=== PATIENT | male | born 1950 | race Caucasian/White ===

== ENCOUNTER 2021-09-08 16:34 | Inpatient (IN) ==
[2021-09-08] MEDS ORDERED: SODIUM CHLORIDE 0.9% 1000ML 1,000 ML IV SCH (17:00)
--- NOTE | 2021-09-08 17:03 | Emergency Department Note ---
Impression & Plan Gastric outlet obstruction, Syncope and collapse, Nausea & vomiting, Abdominal pain, acute, epigastric, Acute upper GI bleed ED Provider Note INFORMANT: Patient ED PROVIDER(S): Jose Patterson MD CHIEF COMPLAINT: Syncope PLAN: Disposition: Admitted Condition: Good Outpatient prescription management: none Referral: None MEDICAL DECISION MAKING: Patient presented after syncopal episode. He was tender in the epigastrium. His vital signs and ECG were unremarkable. Patient was hydrated. Head CT was unremarkable. His CT scan of his abdomen pelvis was concerning for possible gastric outlet obstruction and possible upper GI bleed. Patient had a significant leukocytosis on CBC and anemia. the patient was reassessed. He had another syncopal episode while trying to use the bathroom. A CODE BLUE was called. I did attend to the patient as well as other staff.. That this was a nother isolated syncopal episode that I suspect is from his GI source. Patient's troponin was noted to be positive. Patient had a repeat ECG was unremarkable. Repeat H&H was performed and revealed no significant change. Patient was given IV Zofran, IV Pepcid, and Protonix bolus and drip. I did consult with gastroenterology, Dr. Dey. We reviewed the findings and he reviewed the imaging itself. He agreed with the treatment. Patient was also given a dose of IV Mefoxin. He asked to be notified if there was any swapna blood from the NG tube. Only coffee-ground material was noted. I did inform him of the results. He notes patient will need an endoscopy tomorrow. And family were updated. On reassessment patient was feeling better and declined analgesia. It appears patient has an upper GI bleed. Possibly a duodenal ulcer or other issue causing this issue. Only hemoglobin on record is from 6 years ago and he has dropped 3 points. He will need to be monitored closely. A consu ltation was placed with Dr. Jose Evans, [facility]. He evaluated the patient in the ER and admitted him for further management. Triage Nursing notes reviewed and agree them. Vital Signs: reviewed and remarkable for no significant abnormalities Differential diagnosis: Infection, dehydration, metabolic abnormality, hypo/hyperglycemia, electrolyte disturbance, anemia, hypoxia, cardiac sources, intracerebral event, toxicologic, neurologic, as well as other pathologies. Diagnostics interpreted by me: EC Lead ECG performed and revealed Normal sinus rhythm at 76, normal [place], QRS normal. No elevation or depression. No PACs or PVCs Cardiac Monitoring: Cardiac monitoring ordered by me: The patient was placed on continuous cardiac monitoring and observed. It revealed a normal sinus rhythm at 98 beats per minute without ectopy or evidence of dysrhythmia. Imaging studies: Head CT was negative. CT scan of the abdomen pelvis as above. I refer you to the EMR for further details. HPI: The patient is a 71 year old male who presents to the Emergency Room with complaints of syncope. This started today and is occurred twice. One episode at home and he was found by family. Second episode the patient was witnessed when transferring to the stretcher by EMS. The patient also notes the following associated symptoms, epigastric abdominal pain, nausea, vomiting, diarrhea which started last night. The patient has been given 350 mL normal saline by EMS for relieving factors. Current pain is rated as 5/10. Patient denies suffering any injury from the fall. pt denies headache, fevers, chills, diaphoresis, visual changes, neck pain, chest pain, breathing difficulties, back pain, melena, hematochezia, urinary symptoms, numbness, weakness, lymphadenopathy, rash, or other complaints. ROS: See above HPI for pertinent positives & negatives. A total of 10 systems reviewed and were otherwise negative. PAST MEDICAL HISTORY:See Below , CVA PAST SURGICAL HISTORY:See Below, FAMILY HISTORY:See Below SOCIAL HISTORY:See Below, lives at home with family HOME MEDICATIONS:See Below ALLERGIES:See Below VITALS:See Below PHYSICAL EXAMINATION: GENERAL: Awake, alert, tired-appearing, in no distress HENT: Normocephalic, atraumatic. Oropharynx unremarkable. EYES: Pale conjunctiva. Sclera non-icteric. NECK: Inspection normal. Non-tender. Supple. No nuchal rigidity. FROM. No masses. RESPIRATORY: Clear to auscultation. No wheezes. No rales. Normal respiratory effort. CARDIAC: Borderline tachycardic rate. Normal rhythm. No murmurs. No rubs. Extremities warm and well perfused. Pulses equal. No JVD. GI: Soft, non-distended. Epigastric tenderness to palpation. No rebound or guarding. No masses. RECTAL: Deferred. MUSCULOSKELETAL: Atraumatic. Chest examination reveals no tenderness. The back is symmetrical on inspection without obvious abnormality. There is no CVA tenderness to palpation. No joint edema. LOWER EXTREMITIES: Calves are equal size bilaterally and non-tender. No edema. No discoloration. NEURO: Normal sensorium. No sensory deficits noted. Generally weak in the arms and legs but no focal deficit. SKIN: No rash or jaundice noted. Critical CARE: I have personally spent greater than 40 minutes of critical care time in the direct management of this patient. This includes bedside care, interpretation of diagnostic studies, and testing, discussion with consultants, patient, and family members, and other required patient management activities. These minutes are in excess of all separately billable procedures. Jose Patterson MD Past Med/Surg History Social History (System 12/16/19 @ 08:00 by Luz Ernadnez) Smoking Status: Former smoker Preferred Language: Kyrgyz Feels Safe at Home: Yes Allergies Allergies Allergy/AdvReac Type Severity Reaction Status Date / Time tetracycline Allergy Mild RASH Verified 12/16/19 08:00 Home Meds Home Medications Medication Instructions Recorded Confirmed albuterol sulfate 90 mcg/actuation 2 puff INHALATION Q4 PRN 09/08/21 09/08/21 aerosol inhaler amitriptyline 10 mg tablet 10 mg PO HS 09/08/21 09/08/21 aspirin 325 mg tablet 325 mg PO DAILY 09/08/21 09/08/21 atorvastatin 40 mg tablet 40 mg PO DAILY 09/08/21 09/08/21 bupropion HCl 150 mg 24 hr tablet, 150 mg PO DAILY 09/08/21 09/08/21 extended release calcium carbonate 500 mg calcium 500 mg PO TID 09/08/21 09/08/21 (1,250 mg) chewable tablet clopidogrel 75 mg tablet 75 mg PO QAM 09/08/21 09/08/21 fluoxetine 20 mg capsule 20 mg PO DAILY 09/08/21 09/08/21 fluoxetine 40 mg capsule 40 mg PO DAILY 09/08/21 09/08/21 lorazepam 1 mg tablet 1 mg PO HS PRN 09/08/21 09/08/21 meloxicam 15 mg tablet 15 mg PO DAILY 09/08/21 09/08/21 metformin 500 mg tablet 500 mg PO BID 09/08/21 09/08/21 [id number] acid 0.4 1 tab PO DAILY 09/08/21 09/08/21 mg-lycopene 300 mcg-lutein 250 mcg tablet (Centrum Silver) pantoprazole 40 mg tablet,delayed 40 mg PO DAILYBB 09/08/21 09/08/21 release propranolol 160 mg capsule,24 160 mg PO DAILY 09/08/21 09/08/21 hr,extended release rizatriptan 10 mg tablet 10 mg PO UD PRN 09/08/21 09/08/21 tramadol 50 mg tablet 50 mg PO Q6 PRN 09/08/21 09/08/21 Results & Data (ED) Vital Signs Vital Signs - 24 hr 09/08/21 16:30 09/08/21 16:49 09/08/21 19:00 Temperature 36.4 C L 36.8 C Temperature Source Oral Oral Pulse Rate 74 78 Pulse Rate [Apical] 73 90 Pulse Rhythm [Apical] Regular Pulse Strength [Apical] Normal Respiratory Rate 19 16 18 Respiratory Effort / Characteristics Non-Labored Spontaneous Respiratory Depth Normal Respiratory Pattern Regular Blood Pressure 151/90 H Blood Pressure [Left Arm] 151/90 H 184/93 H Blood Pressure Mean 110 Blood Pressure Mean [Left Arm] 110 123 Blood Pressure Position [Left Arm] Lying Pulse Oximetry 99 100 98 Oxygen Delivery Method Room Air Room Air Sepsis Recent Fever Within 48 Hours No Sepsis New/Unexplained Change in Mental Status N/A Sepsis Action Taken by Nursing No Action Required Laboratory Data Result diagrams: 09/08/21 17:52 09/08/21 17:52 Lab Results 09/08/21 09/08/21 09/08/21 Range/Units 17:12 17:52 17:52 WBC 23.61 H (4.8-10.8) K/uL RBC 3.87 L (4.7-6.1) M/uL Hgb 9.0 L (14.0-18.0) g/dL POC Hgb (14.0-18.0) g/dl Hct 29.1 L (42-52) % POC Hct (42-52) % MCV 75.2 L (80-100) fL MCH 23.3 L (25-34) pg MCHC 30.9 L (32-36) g/dL RDW Std Deviation 44.1 (36.4-46.3) fL RDW Coeff of Harjeet 15.9 H (11.5-14.5) % Plt Count 385 (130-400) K/uL MPV 9.6 (7.4-10.4) fL Immature Gran % (Auto) 0.5 % Neut % (Auto) 88.9 % Lymph % (Auto) 4.9 % Henry % (Auto) 5.6 % Eos % (Auto) 0.0 % Baso % (Auto) 0.1 % Neut # (Auto) 20.99 H (1.4-6.5) K/uL Lymph # (Auto) 1.15 L (1.2-3.4) K/uL Henry # (Auto) 1.32 H (0.11-0.59) K/uL Eos # (Auto) 0.01 (0-0.5) K/uL Baso # (Auto) 0.02 (0-0.2) K/uL Immature Gran # (Auto) 0.12 H (0.00-0.02) K/uL Polychromasia 1+ Hypochromasia Present POC Sodium (135-144) mmol/L Sodium 138 (136-145) mmol/L POC Potassium (3.3-5.0) mmol/L Potassium 5.0 (3.5-5.1) mmol/L POC Chloride (101-112) mmol/L Chloride 104 (98-107) mmol/L Carbon Dioxide 26 (21-32) mmol/L POC Total CO2 (24-31) mmol/L Anion Gap 8 (3-11) POC Anion Gap (16-25) mmol/L POC BUN (7-18) mg/dl BUN 33 H (6-23) mg/dl Creatinine 1.13 (0.6-1.4) mg/dl POC Creatinine (0.6-1.3) mg/dl Est Cr Clr Drug Dosing 63.6 ml/min Est GFR ( Amer) 75.9 ml/min Est GFR (Non-Af Amer) 65.5 ml/min BUN/Creatinine Ratio 29.2 H (10-20) Glucose 175 H (70-99(Fasting)) mg/dl POC Glucose (other) (70-99) mg/dl Calcium 8.7 (8.5-10.1) mg/dl POC Ioniz Calcium Tracy (1.12-1.32) mmol/l Magnesium 1.9 (1.7-2.4) mg/dl Total Bilirubin 0.6 (0.2-1.0) mg/dl AST 17 (13-39) U/L ALT 11 (7-52) U/L Alkaline Phosphatase 91 (34-104) U/L Troponin I 0.05 H* (0-0.04) ng/ml Total Protein 6.3 (6.0-8.3) gm/dl Albumin 3.5 (3.4-5.0) gm/dl Globulin 2.8 (2.5-4.0) gm/dl Albumin/Globulin Ratio 1.3 (0.9-2) TSH (0.300-4.500) uIu/ml Blood Type A Positive Antibody Screen NEGATIVE 09/08/21 09/08/21 Range/Units 17:52 18:41 WBC (4.8-10.8) K/uL RBC (4.7-6.1) M/uL Hgb (14.0-18.0) g/dL POC Hgb 9.5 L (14.0-18.0) g/dl Hct (42-52) % POC Hct 28 L (42-52) % MCV (80-100) fL MCH (25-34) pg MCHC (32-36) g/dL RDW Std Deviation (36.4-46.3) fL RDW Coeff of Harjeet (11.5-14.5) % Plt Count (130-400) K/uL MPV (7.4-10.4) fL Immature Gran % (Auto) % Neut % (Auto) % Lymph % (Auto) % Henry % (Auto) % Eos % (Auto) % Baso % (Auto) % Neut # (Auto) (1.4-6.5) K/uL Lymph # (Auto) (1.2-3.4) K/uL Henry # (Auto) (0.11-0.59) K/uL Eos # (Auto) (0-0.5) K/uL Baso # (Auto) (0-0.2) K/uL Immature Gran # (Auto) (0.00-0.02) K/uL Polychromasia Hypochromasia POC Sodium 140 (135-144) mmol/L Sodium (136-145) mmol/L POC Potassium 4.5 (3.3-5.0) mmol/L Potassium (3.5-5.1) mmol/L POC Chloride 101 (101-112) mmol/L Chloride (98-107) mmol/L Carbon Dioxide (21-32) mmol/L POC Total CO2 24 (24-31) mmol/L Anion Gap (3-11) POC Anion Gap 20.0 (16-25) mmol/L POC BUN 31 H (7-18) mg/dl BUN (6-23) mg/dl Creatinine (0.6-1.4) mg/dl POC Creatinine 1.1 (0.6-1.3) mg/dl Est Cr Clr Drug Dosing ml/min Est GFR ( Amer) ml/min Est GFR (Non-Af Amer) ml/min BUN/Creatinine Ratio (10-20) Glucose (70-99(Fasting)) mg/dl POC Glucose (other) 186 H (70-99) mg/dl Calcium (8.5-10.1) mg/dl POC Ioniz Calcium Tracy 1.18 (1.12-1.32) mmol/l Magnesium (1.7-2.4) mg/dl Total Bilirubin (0.2-1.0) mg/dl AST (13-39) U/L ALT (7-52) U/L Alkaline Phosphatase (34-104) U/L Troponin I (0-0.04) ng/ml Total Protein (6.0-8.3) gm/dl Albumin (3.4-5.0) gm/dl Globulin (2.5-4.0) gm/dl Albumin/Globulin Ratio (0.9-2) TSH 2.312 (0.300-4.500) uIu/ml Blood Type Antibody Screen Administered Medications Sodium Chloride (Nss 1000ml) 1,000 mls @ 125 mls/hr IV .Q8H SHERIE Stop: 09/09/21 00:59 Last Admin: 09/08/21 17:19 Dose: 125 mls/hr Documented by: [id number] Discontinued Medications Sodium Chloride (Nss 1000ml) 500 mls @ 999 mls/hr IV .Q31M ONE Stop: 09/08/21 18:40 Last Admin: 09/08/21 19:45 Dose: 999 mls/hr Documented by: [id number] Famotidine (Pepcid 20mg Iv Push) 20 mg in 5 mls @ 2.5 mls/min IV NOW STA Stop: 09/08/21 18:11 Last Admin: 09/08/21 19:44 Dose: 2.5 mls/min Documented by: [id number] Cefoxitin Sodium (Mefoxin) 2,000 mg in 60 mls @ 100 mls/hr IV NOW STA Stop: 09/08/21 19:13 Last Admin: 09/08/21 19:43 Dose: 100 mls/hr Documented by: [id number] Ondansetron HCl (Ondansetron Inj 2 Mg/Ml 2 Ml Vial) 4 mg IV NOW STA Stop: 09/08/21 18:11 Last Admin: 09/08/21 19:44 Dose: 4 mg Documented by: [id number] Imaging Data Radiologist's Impression: Abdomen/Pelvis CT 09/08/21 16:48 CT SCAN OF THE ABDOMEN AND PELVIS WITHOUT IV CONTRAST CLINICAL HISTORY: Syncope. Fall. Upper abdominal pain. Vomiting. COMPARISON STUDY: Abdominal CT dated 12/19/2010. TECHNIQUE: CT scan of the abdomen and pelvis is performed from the lung bases to the proximal femora. Images are reviewed in the axial, sagittal, and coronal planes. IV contrast was not administered for this examination. Note that the examination was performed in suboptimal fashion without oral and IV contrast. A dose lowering technique was utilized adhering to the principles of ALARA. CT DOSE: 352.97 mGy.cm FINDINGS: Lung bases: The heart is normal in size and without pericardial effusion. The c oronary arteries are densely calcified. Emphysematous change is noted. There is bibasilar scarring/atelectasis. No airspace consolidation or pleural effusion is identified. A calcified granuloma is seen at the left lung base. The distal esophagus is filled with fluid. Liver: The unenhanced liver is normal in size, contour, and attenuation. There is no intrahepatic biliary ductal dilatation. Gallbladder: Unremarkable. Spleen: Normal in size and attenuation. Pancreas: The unenhanced pancreas is moderately atrophic and grossly unremarkable. Adrenal glands: Unremarkable. Kidneys: The unenhanced kidneys demonstrate cortical atrophy and are without hydronephrosis. There are no renal calculi identified. There is no evidence of contour deforming renal mass lesion. Abdominal vasculature: There is advanced atherosclerotic calcification of the abdominal aorta noting an aortobiiliac stent graft in place. There is no significant residual aneurysm sac. Stomach and bowel: The stomach is markedly distended and filled with fluid. The duodenum is distended measuring up to 5.4 cm in diameter, and there are surrounding inflammation. There is hyperdense material seen involving the second and third portions of the duodenum suspicious for a large duodenal hematoma. This likely causes gastric outlet obstruction. There is moderate constipation. No bowel obstruction is identified. There is mild to moderate colonic diverticulosis without CT evidence of acute diverticulitis. The appendix is wel l-visualized and normal. Peritoneum: There is no intraperitoneal free air or abdominal ascites. Lymphadenopathy: None. Pelvic viscera: Evaluation of the pelvis is degraded by streak artifact from bilateral hip arthroplasties. The prostate gland is enlarged and heterogeneous, but not well visualized due to significant streak artifact. The bladder is distended and normal as imaged. Skeletal structures: The skeletal structures are osteopenic. No lytic or blastic lesions are seen. Bilateral hip arthroplasties are in place. Spondylotic and postoperative change is noted in the thoracolumbar spine. IMPRESSION: 1. The duodenum is expanded and filled with hyperdense material. This likely represents a large duodenal hematoma and there is associated gastric outlet obstruction. 2. Mild inflammatory change is seen around the duodenum. No intraperitoneal free air is identified and there is no abdominal ascites. 3. Colonic diverticulosis without CT evidence of acute diverticulitis. 4. Additional findings as above. ACT 112: Negative or not required by law. Electronically signed by: Gatito Nuno M.D. 09/08/2021 6:[address] 09/08/21 16:48 CT SCAN OF THE BRAIN WITHOUT IV CONTRAST CLINICAL HISTORY: Fall. Syncope. COMPARISON STUDY: CT of the brain dated 05/25/2015. TECHNIQUE: Unenhanced axial CT scan of the brain is performed from the vertex to the skull base. A dose lowering technique was utilized adhering to the principles of ALARA. CT DOSE: 786.26 mGy.cm FINDINGS: Brain parenchyma: There are age-related involutional changes noting moderate patchy subcortical and periventricular microangiopathic change. There is no hemorrhage, mass effect, or evidence of acute territorial ischemia by CT criteria. Ha-white matter differentiation is preserved. No extra-axial fluid collection is seen. Ventricles, sulci, cisterns: Prominent secondary to involutional change. Intracranial vasculature: There is atherosclerotic calcification of the cavernous carotid arteries. Calvarium: The skeletal structures are osteopenic. No depressed calvarial fracture is identified. Sinuses and mastoids: The visualized paranasal sinuses are clear. The mastoid air cells are well pneumatized. Orbits: The bony orbits are grossly intact. IMPRESSION: There is no hemorrhage, mass effect, or evidence of acute territorial ischemia by CT criteria. ACT 112: Negative or not required by law. Electronically signed by: Gatito Nuno M.D. 09/08/2021 5:38 PM Chest X-Ray 09/08/21 16:49 SINGLE VIEW CHEST CLINICAL HISTORY: Generalized weakness. FINDINGS: 2 AP, portable, upright chest radiographs are compared to study dated 05/24/2015. The heart is mildly enlarged noting atherosclerotic calcification of the thoracic aorta. The pulmonary vasculature is noncongested. Mild atelectasis is noted at the lung bases. A calcified granuloma is noted at the left lung base. The lungs and pleural spaces are otherwise clear. No pneumothorax is seen. The skeletal structures are osteopenic. The bony thorax is grossly intact. A right shoulder arthroplasty is in place. Advanced arthritic change is noted in the left shoulder. Fusion hardware is partially visualized in the lumbar spine. IMPRESSION: No active disease in the chest. ACT 112: Negative or not required by law. Electronically signed by: Gatito Nuno M.D. 09/08/2021 5:05 PM Discharge Plan Visit Data Chief Complaint: Fall ED Provider: Jose Patterson Discharge Problem: Gastric outlet obstruction, Syncope and collapse, Nausea & vomiting, Abdominal pain, acute, epigastric, Acute upper GI bleed Forms Stand Alone Forms: My [facility] Prescriptions Prescriptions: No Action fluoxetine 40 mg capsule 40 mg PO DAILY RF: 0 atorvastatin 40 mg tablet 40 mg PO DAILY RF: 0 metformin 500 mg tablet 500 mg PO BID RF: 0 propranolol 160 mg capsule,extended release 24 hr 160 mg PO DAILY RF: 0 meloxicam 15 mg tablet 15 mg PO DAILY RF: 0 clopidogrel 75 mg tablet 75 mg PO QAM RF: 0 tramadol 50 mg tablet 50 mg PO Q6 PRN (Reason: Pain, Severe) RF: 0 amitriptyline 10 mg tablet 10 mg PO HS RF: 0 pantoprazole 40 mg tablet,delayed release (DR/EC) 40 mg PO DAILYBB RF: 0 lorazepam 1 mg tablet 1 mg PO HS PRN (Reason: Anxiety/insomnia) RF: 0 fluoxetine 20 mg capsule 20 mg PO DAILY RF: 0 aspirin 325 mg Tablet 325 mg PO DAILY RF: 0 rizatriptan 10 mg Tablet 10 mg PO UD PRN (Reason: Migraine Headache) RF: 0 calcium carbonate [Tums 500] 500 mg calcium (1,250 mg) Tablet,Chewable 500 mg PO TID RF: 0 albuterol sulfate 90 mcg/actuation HFA aerosol inhaler 2 puff INHALATION Q4 PRN (Reason: Wheezing) RF: 0 bupropion HCl 150 mg tablet extended release 24 hr 150 mg PO DAILY RF: 0 Centrum Silver 0.4 mg-300 mcg- 250 mcg Tablet 1 tab PO DAILY RF: 0 Referrals Referrals: Zaid Arnold DO [Primary Care Provider] -
--- NOTE | 2021-09-08 17:06 | XRay Report ---
SINGLE VIEW CHEST CLINICAL HISTORY: Generalized weakness. FINDINGS: 2 AP, portable, upright chest radiographs are compared to study dated 05/24/2015. The heart is mildly enlarged noting atherosclerotic calcification of the thoracic aorta. The pulmonary vascula ture is noncongested. Mild atelectasis is noted at the lung bases. A calcified granuloma is noted at the left lung base. The lungs and pleural spaces are otherwise clear. No pneumothorax is seen. The sk eletal structures are osteopenic. The bony thorax is grossly intact. A right shoulder arthroplasty is in place. Advanced arthritic change is noted in the left shoulder. Fusion hardware is partially visu alized in the lumbar spine. IMPRESSION: No active disease in the chest. ACT 112: Negative or not required by law. Electronically signed by: Gatito Nuno M.D. 09/08/2021 5:05 PM
--- NOTE | 2021-09-08 17:40 | CT Scan Report ---
CT SCAN OF THE BRAIN WITHOUT IV CONTRAST CLINICAL HISTORY: Fall. Syncope. COMPARISON STUDY: CT of the brain dated 05/25/2015. TECHNIQUE: Unenhanced axial CT scan of the brain is performed from the vertex to the skull base. A do se lowering technique was utilized adhering to the principles of ALARA. CT DOSE: 786.26 mGy.cm FINDINGS: Brain parenchyma: There are age-related involutional changes noting moderate patchy subcortical and periventricular microangiopathic change. There is no hemorrhage, mass effect, or evidence of acute te rritorial ischemia by CT criteria. Ha-white matter differentiation is preserved. No extra-axial flu id collection is seen. Ventricles, sulci, cisterns: Prominent secondary to involutional change. Intracranial vasculature: There is atherosclerotic calcification of the cavernous carotid arteries. Calvarium: The skeletal structures are osteopenic. No depressed calvarial fracture is identified. Sinuses and mastoids: The visualized paranasal sinuses are clear. The mastoid air cells are well pneu matized. Orbits: The bony orbits are grossly intact. IMPRESSION: There is no hemorrhage, mass effect, or evidence of acute territorial ischemia by CT grady lujan. ACT 112: Negative or not required by law. Electronically signed by: Gatito Nuno M.D. 09/08/2021 5:38 PM
[2021-09-08 18:07] LABS: Hematocrit (blood only) 29.1 % (42-52); Mean Corpuscular Hemoglobin 23.3 pg (25-34); Mean Corpuscular Hgb Conc 30.9 g/dL (32-36); Mean Corpuscular Volume 75.2 fL (80-100); Mean Platelet Volume 9.6 fL (7.4-10.4); Platelet Count 385 K/uL (130-400); RDW Coefficient of Variation 15.9 % (11.5-14.5); RDW Standard Deviation 44.1 fL (36.4-46.3); Red Blood Count 3.87 M/uL (4.7-6.1); White Blood Count 23.61 K/uL (4.8-10.8)
[2021-09-08] MEDS ORDERED: SODIUM CHLORIDE 0.9% 1000ML 500 ML IV ONE (18:10)
[2021-09-08] MEDS ORDERED: ONDANSETRON INJ 2 MG/ML 2 ML VIAL IV STA (18:10)
[2021-09-08] MEDS ORDERED: FAMOTIDINE 20MG IV PUSH 20 MG/5 ML SYR IV STA (18:10)
--- NOTE | 2021-09-08 18:15 | CT Scan Report ---
CT SCAN OF THE ABDOMEN AND PELVIS WITHOUT IV CONTRAST CLINICAL HISTORY: Syncope. Fall. Upper abdominal pain. Vomiting. COMPARISON STUDY: Abdominal CT dated 12/19/2010. TECHNIQUE: CT scan of the abdomen and pelvis is performed from the lung bases to the proximal femora. Images are reviewed in the axial, sagittal, and coronal planes. IV contrast was not administered for this examination. Note that the examination was performed in suboptimal fashion without oral and IV contrast. A dose lowering technique was utilized adhering to the principles of ALARA. CT DOSE: 352.97 mGy.cm FINDINGS: Lung bases: The heart is normal in size and without pericardial effusion. The coronary arteries are d ensely calcified. Emphysematous change is noted. There is bibasilar scarring/atelectasis. No airspace consolidation or pleural effusion is identified. A calcified granuloma is seen at the left lung base . The distal esophagus is filled with fluid. Liver: The unenhanced liver is normal in size, contour, and attenuation. There is no intrahepatic cedrick iary ductal dilatation. Gallbladder: Unremarkable. Spleen: Normal in size and attenuation. Pancreas: The unenhanced pancreas is moderately atrophic and grossly unremarkable. Adrenal glands: Unremarkable. Kidneys: The unenhanced kidneys demonstrate cortical atrophy and are without hydronephrosis. There ar e no renal calculi identified. There is no evidence of contour deforming renal mass lesion. Abdominal vasculature: There is advanced atherosclerotic calcification of the abdominal aorta noting an aortobiiliac stent graft in place. There is no significant residual aneurysm sac. Stomach and bowel: The stomach is markedly distended and filled with fluid. The duodenum is distended measuring up to 5.4 cm in diameter, and there are surrounding inflammation. There is hyperdense mate rial seen involving the second and third portions of the duodenum suspicious for a large duodenal hem atoma. This likely causes gastric outlet obstruction. There is moderate constipation. No bowel obstru ction is identified. There is mild to moderate colonic diverticulosis without CT evidence of acute di verticulitis. The appendix is well-visualized and normal. Peritoneum: There is no intraperitoneal free air or abdominal ascites. Lymphadenopathy: None. Pelvic viscera: Evaluation of the pelvis is degraded by streak artifact from bilateral hip arthroplas ties. The prostate gland is enlarged and heterogeneous, but not well visualized due to significant st reak artifact. The bladder is distended and normal as imaged. Skeletal structures: The skeletal structures are osteopenic. No lytic or blastic lesions are seen. Bi lateral hip arthroplasties are in place. Spondylotic and postoperative change is noted in the thoraco lumbar spine. IMPRESSION: 1. The duodenum is expanded and filled with hyperdense material. This likely represents a large duode nal hematoma and there is associated gastric outlet obstruction. 2. Mild inflammatory change is seen around the duodenum. No intraperitoneal free air is identified an d there is no abdominal ascites. 3. Colonic diverticulosis without CT evidence of acute diverticulitis. 4. Additional findings as above. ACT 112: Negative or not required by law. Electronically signed by: Gatito Nuno M.D. 09/08/2021 6:12 PM
[2021-09-08 18:34] LABS: Basophils # (auto) 0.02 K/uL (0-0.2); Basophils % (auto) 0.1 %; Eosinophils # (auto) 0.01 K/uL (0-0.5); Hypochromasia Present; Immature Granulocytes # (auto) 0.12 K/uL (0.00-0.02); Immature Granulocytes % (auto) 0.5 %; Lymphocytes # (auto) 1.15 K/uL (1.2-3.4); Lymphocytes % (auto) 4.9 %; Monocytes # (auto) 1.32 K/uL (0.11-0.59); Monocytes % (auto) 5.6 %; Neutrophils # (auto) 20.99 K/uL (1.4-6.5); Neutrophils % (auto) 88.9 %; Polychromasia 1+
[2021-09-08 18:36] LABS: Albumin Globulin Ratio 1.3 (0.9-2); Albumin Level 3.5 gm/dl (3.4-5.0); BUN Creatinine Ratio 29.2 (10-20); Bilirubin,Total 0.6 mg/dl (0.2-1.0); Calcium 8.7 mg/dl (8.5-10.1); Creatinine Clr Calc Pharmacy 63.6 ml/min; Est GFR (African American) 75.9 ml/min; Est GFR (Non-African American) 65.5 ml/min; Globulin 2.8 gm/dl (2.5-4.0); Magnesium 1.9 mg/dl (1.7-2.4); Total Protein 6.3 gm/dl (6.0-8.3)
[2021-09-08] MEDS ORDERED: cefOXitin 2,000 MG/60 ML BAG IV STA (18:38)
[2021-09-08] MEDS ORDERED: PANTOprazole 80 MG in DEXTROSE 5% 100 ML IV ONE (18:38)
[2021-09-08] MEDS ORDERED: PANTOPRAZOLE BOLUS/DRIP 1 EA IV STA (18:38)
[2021-09-08 18:53] LABS: iSTAT Creatinine 1.1 mg/dl (0.6-1.3); iSTAT Hemoglobin 9.5 g/dl (14.0-18.0); iSTAT Ionized Calcium 1.18 mmol/l (1.12-1.32); iSTAT Potassium 4.5 mmol/L (3.3-5.0)
[2021-09-08] MEDS ORDERED: METOPROLOL TARTRATE 1 MG/ML VIAL IV STA (19:49)
--- NOTE | 2021-09-08 19:49 | History & Physical Report ---
Date of Service September 08, 2021 Assessment & Plan (1) Acute upper GI bleed: Plan: Secondary to duodenal hematoma causing gastric outlet obstruction Patient predisposed by antiplatelet Rx for CVA and home NSAID. Acute on chronic anemia secondary to above. Recurrent syncope likely secondary to orthostasis from blood loss Rule out cardiac dysfunction hypertension, BP elevated secondary to discomfort Troponin elevation likely secondary to elevated BP hx AAA status post surgery COPD, pulmonary status currently stable hyperlipidemia on statin Rx DM2 on oral medications, well-controlled as of recent hemoglobin A1c of 5.08 April 2021 Abnormal WBC differential past tobacco abuse Medical telemetry IV PPI Continue NGT decompression GI consult Re: UGI B, gastric outlet obstruction (ER provider already in touch with Dr. Dey.) Appropriate to hold home antiplatelet Rx and NSAID for now. Serial H&H, transfuse PRBC if globin less than 8 and or for symptomatic anemia Check orthostatic vitals, TTE for syncope work-up Facilitate home BP meds, follow troponin Basal insulin adjusted for n.p.o. status, ISS BG goal 1 10-1 40, update hemoglobin A1c Peripheral blood smear for abnormal WBC differential DVT prophylaxis with SCDs Re: GI bleed Full code Patient requesting updates from providers. Ms. Tamica Burden, contact #[phone]. Text document was generated using OmPrompt voice recognition software. It may contain grammatical or spelling errors. Kindly contact undersigned for clarification of any documentation item in question. History of Present Illness Chief Complaint: Vomiting, possible syncope Primary Care Provider: Zaid Arnold DO History obtained from patient, family, and records. Medical history significant for CVA, AAA status post surgery, COPD, hypertension, hyperlipidemia, DM2 on oral medications, chronic anemia (baseline hemoglobin of 12), past tobacco abuse, history of C. difficile. Last confinement 2015 under Orthopedics service for elective left hip surgery. Patient was not feeling well last night. Achy central abdominal pain with coffee-ground emesis. No black/bloody bowel movement. No fever, no chills. Patient noted some lightheadedness. Patient did not tell he was having issues. Usual daily meloxicam intake for arthritis. Today, patient fell close to the commode. Not sure if he passed out. Kamas lightheaded prior to event. Patient helped him to the commode. Patient fell again, possible syncopal event. Patient brought to the ER for evaluation. IV PPI started for GI bleed. Cefoxitin given for possible infection. NGT inserted for gastric outlet obstruction. Medical History as above 2020 EGD showed normal esophagus, gastroesophageal flap valve classified as Hill grade 1, mild gastritis 2019 colonoscopy showed diverticulosis in the sigmoid colon and descending colon. 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 Allergies Allergy/AdvReac Type Severity Reaction Status Date / Time tetracycline Allergy Mild RASH Verified 09/08/21 19:47 Home Medications Medication Instructions Recorded Confirmed Type albuterol sulfate 90 mcg/actuation 2 puff INHALATION Q4 PRN 09/08/21 09/08/21 History aerosol inhaler amitriptyline 10 mg tablet 10 mg PO HS 09/08/21 09/08/21 History aspirin 325 mg tablet 325 mg PO DAILY 09/08/21 09/08/21 History atorvastatin 40 mg tablet 40 mg PO DAILY 09/08/21 09/08/21 History bupropion HCl 150 mg 24 hr tablet, 150 mg PO DAILY 09/08/21 09/08/21 History extended release calcium carbonate 500 mg calcium 500 mg PO TID 09/08/21 09/08/21 History (1,250 mg) chewable tablet clopidogrel 75 mg tablet 75 mg PO QAM 09/08/21 09/08/21 History fluoxetine 20 mg capsule 20 mg PO DAILY 09/08/21 09/08/21 History fluoxetine 40 mg capsule 40 mg PO DAILY 09/08/21 09/08/21 History lorazepam 1 mg tablet 1 mg PO HS PRN 09/08/21 09/08/21 History meloxicam 15 mg tablet 15 mg PO DAILY 09/08/21 09/08/21 History metformin 500 mg tablet 500 mg PO BID 09/08/21 09/08/21 History zywexwix-wqo-uxihi acid 0.4 1 tab PO DAILY 09/08/21 09/08/21 History mg-lycopene 300 mcg-lutein 250 mcg tablet (Centrum Silver) pantoprazole 40 mg tablet,delayed 40 mg PO DAILYBB 09/08/21 09/08/21 History release propranolol 160 mg capsule,24 160 mg PO DAILY 09/08/21 09/08/21 History hr,extended release rizatriptan 10 mg tablet 10 mg PO UD PRN 09/08/21 09/08/21 History tramadol 50 mg tablet 50 mg PO Q6 PRN 09/08/21 09/08/21 History Past Med/Surg History Social History (System 12/16/19 @ 08:00 by Luz Ernandez) Smoking Status: Former smoker Preferred Language: [place] Feels Safe at Home: Yes Review of Systems Review of Systems: As per HPI, all 10 systems reviewed, all other ROS negative Physical Exam Physical Exam: GENERAL: Slightly uncomfortable, anxious, no respiratory distress SKIN: Pallor, warm HEENT: [place] palpebral conjunctivae, no ptosis, dry buccal mucosa, NGT in place NECK : Supple, no tenderness CHEST : Decreased breath sounds, no tenderness HEART : RRR, no obvious murmurs ABDOMEN: Some distention, central abdominal tenderness EXTREMITIES : No LE swelling/tenderness, no other conspicuous deformities noted NEUROLOGIC : Coherent, no facial asymmetry, no other gross focality Results & Data Results & Data ([facility]) Vital Signs (Past 12 Hours) Vital Signs Temp Pulse Pulse Resp BP BP Pulse Ox 09/08/21 19:00 36.8 C 90 18 184/93 H 98 09/08/21 16:49 78 16 100 09/08/21 16:30 36.4 C L 74 73 19 151/90 H 151/90 H 99 Laboratory Results Laboratory Results WBC 23.61 K/uL (4.8-10.8) H 09/08/21 17:52 RBC 3.87 M/uL (4.7-6.1) L 09/08/21 17:52 Hgb 9.0 g/dL (14.0-18.0) L 09/08/21 17:52 POC Hgb 9.5 g/dl (14.0-18.0) L 09/08/21 18:41 Hct 29.1 % (42-52) L 09/08/21 17:52 POC Hct 28 % (42-52) L 09/08/21 18:41 MCV 75.2 fL (80-100) L 09/08/21 17:52 MCH 23.3 pg (25-34) L 09/08/21 17:52 MCHC 30.9 g/dL (32-36) L 09/08/21 17:52 RDW Std Deviation 44.1 fL (36.4-46.3) 09/08/21 17:52 RDW Coeff of Harjeet 15.9 % (11.5-14.5) H 09/08/21 17:52 Plt Count 385 K/uL (130-400) 09/08/21 17:52 MPV 9.6 fL (7.4-10.4) 09/08/21 17:52 Immature Gran % (Auto) 0.5 % 09/08/21 17:52 Neut % (Auto) 88.9 % 09/08/21 17:52 Lymph % (Auto) 4.9 % 09/08/21 17:52 [place] % (Auto) 5.6 % 09/08/21 17:52 Eos % (Auto) 0.0 % 09/08/21 17:52 Baso % (Auto) 0.1 % 09/08/21 17:52 Neut # (Auto) 20.99 K/uL (1.4-6.5) H 09/08/21 17:52 Lymph # (Auto) 1.15 K/uL (1.2-3.4) L 09/08/21 17:52 [place] # (Auto) 1.32 K/uL (0.11-0.59) H 09/08/21 17:52 Eos # (Auto) 0.01 K/uL (0-0.5) 09/08/21 17:52 Baso # (Auto) 0.02 K/uL (0-0.2) 09/08/21 17:52 Immature Gran # (Auto) 0.12 K/uL (0.00-0.02) H 09/08/21 17:52 Polychromasia 1+ 09/08/21 17:52 Hypochromasia Present 09/08/21 17:52 POC Sodium 140 mmol/L (135-144) 09/08/21 18:41 Sodium 138 mmol/L (136-145) 09/08/21 17:52 POC Potassium 4.5 mmol/L (3.3-5.0) 09/08/21 18:41 Potassium 5.0 mmol/L (3.5-5.1) 09/08/21 17:52 POC Chloride 101 mmol/L (101-112) 09/08/21 18:41 Chloride 104 mmol/L (98-107) 09/08/21 17:52 Carbon Dioxide 26 mmol/L (21-32) 09/08/21 17:52 POC Total CO2 24 mmol/L (24-31) 09/08/21 18:41 Anion Gap 8 (3-11) 09/08/21 17:52 POC Anion Gap 20.0 mmol/L (16-25) 09/08/21 18:41 POC BUN 31 mg/dl (7-18) H 09/08/21 18:41 BUN 33 mg/dl (6-23) H 09/08/21 17:52 Creatinine 1.13 mg/dl (0.6-1.4) 09/08/21 17:52 POC Creatinine 1.1 mg/dl (0.6-1.3) 09/08/21 18:41 Est Cr Clr Drug Dosing 63.6 ml/min 09/08/21 17:52 Est GFR ( Amer) 75.9 ml/min 09/08/21 17:52 Est GFR (Non-Af Amer) 65.5 ml/min 09/08/21 17:52 BUN/Creatinine Ratio 29.2 (10-20) H 09/08/21 17:52 Glucose 175 mg/dl (70-99(Fasting)) H 09/08/21 17:52 POC Glucose (other) 186 mg/dl (70-99) H 09/08/21 18:41 Calcium 8.7 mg/dl (8.5-10.1) 09/08/21 17:52 POC Ioniz Calcium [place] 1.18 mmol/l (1.12-1.32) 09/08/21 18:41 Magnesium 1.9 mg/dl (1.7-2.4) 09/08/21 17:52 Total Bilirubin 0.6 mg/dl (0.2-1.0) 09/08/21 17:52 AST 17 U/L (13-39) 09/08/21 17:52 ALT 11 U/L (7-52) 09/08/21 17:52 Alkaline Phosphatase 91 U/L (34-104) 09/08/21 17:52 Troponin I 0.05 ng/ml (0-0.04) H* 04/10/22 17:52 Total Protein 6.3 gm/dl (6.0-8.3) 09/08/21 17:52 Albumin 3.5 gm/dl (3.4-5.0) 09/08/21 17:52 Globulin 2.8 gm/dl (2.5-4.0) 09/08/21 17:52 Albumin/Globulin Ratio 1.3 (0.9-2) 09/08/21 17:52 TSH 2.312 uIu/ml (0.300-4.500) 09/08/21 17:52 Blood Type A Positive 09/08/21 17:12 Antibody Screen NEGATIVE 09/08/21 17:12 Impressions Abdomen/Pelvis CT 09/08/21 16:48 CT SCAN OF THE ABDOMEN AND PELVIS WITHOUT IV CONTRAST CLINICAL HISTORY: Syncope. Fall. Upper abdominal pain. Vomiting. COMPARISON STUDY: Abdominal CT dated 12/19/2010. TECHNIQUE: CT scan of the abdomen and pelvis is performed from the lung bases to the proximal femora. Images are reviewed in the axial, sagittal, and coronal planes. IV contrast was not administered for this examination. Note that the examination was performed in suboptimal fashion without oral and IV contrast. A dose lowering technique was utilized adhering to the principles of ALARA. CT DOSE: 352.97 mGy.cm FINDINGS: Lung bases: The heart is normal in size and without pericardial effusion. The coronary arteries are densely calcified. Emphysematous change is noted. There is bibasilar scarring/atelectasis. No airspace consolidation or pleural effusion is identified. A calcified granuloma is seen at the left lung base. The distal esophagus is filled with fluid. Liver: The unenhanced liver is normal in size, contour, and attenuation. There is no intrahepatic biliary ductal dilatation. Gallbladder: Unremarkable. Spleen: Normal in size and attenuation. Pancreas: The unenhanced pancreas is moderately atrophic and grossly unremarkable. Adrenal glands: Unremarkable. Kidneys: The unenhanced kidneys demonstrate cortical atrophy and are without hydronephrosis. There are no renal calculi identified. There is no evidence of contour deforming renal mass lesion. Abdominal vasculature: There is advanced atherosclerotic calcification of the abdominal aorta noting an aortobiiliac stent graft in place. There is no significant residual aneurysm sac. Stomach and bowel: The stomach is markedly distended and filled with fluid. The duodenum is distended measuring up to 5.4 cm in diameter, and there are surrounding inflammation. There is hyperdense material seen involving the second and third portions of the duodenum suspicious for a large duodenal hematoma. This likely causes gastric outlet obstruction. There is moderate constipation. No bowel obstruction is identified. There is mild to moderate colonic diverticulosis without CT evidence of acute diverticulitis. The appendix is well-visualized and normal. Peritoneum: There is no intraperitoneal free air or abdominal ascites. Lymphadenopathy: None. Pelvic viscera: Evaluation of the pelvis is degraded by streak artifact from bilateral hip arthroplasties. The prostate gland is enlarged and heterogeneous, but not well visualized due to significant streak artifact. The bladder is distended and normal as imaged. Skeletal structures: The skeletal structures are osteopenic. No lytic or blastic lesions are seen. Bilateral hip arthroplasties are in place. Spondylotic and postoperative change is noted in the thoracolumbar spine. IMPRESSION: 1. The duodenum is expanded and filled with hyperdense material. This likely represents a large duodenal hematoma and there is associated gastric outlet obstruction. 2. Mild inflammatory change is seen around the duodenum. No intraperitoneal free air is identified and there is no abdominal ascites. 3. Colonic diverticulosis without CT evidence of acute diverticulitis. 4. Additional findings as above. ACT 112: Negative or not required by law. Electronically signed by: Gatito Nuno M.D. 09/08/2021 6:[address] 09/08/21 16:48 CT SCAN OF THE BRAIN WITHOUT IV CONTRAST CLINICAL HISTORY: Fall. Syncope. COMPARISON STUDY: CT of the brain dated 05/25/2015. TECHNIQUE: Unenhanced axial CT scan of the brain is performed from the vertex to the skull base. A dose lowering technique was utilized adhering to the principles of ALARA. CT DOSE: 786.26 mGy.cm FINDINGS: Brain parenchyma: There are age-related involutional changes noting moderate patchy subcortical and periventricular microangiopathic change. There is no hemorrhage, mass effect, or evidence of acute territorial ischemia by CT criteria. Ha-white matter differentiation is preserved. No extra-axial fluid collection is seen. Ventricles, sulci, cisterns: Prominent secondary to involutional change. Intracranial vasculature: There is atherosclerotic calcification of the cavernous carotid arteries. Calvarium: The skeletal structures are osteopenic. No depressed calvarial fracture is identified. Sinuses and mastoids: The visualized paranasal sinuses are clear. The mastoid air cells are well pneumatized. Orbits: The bony orbits are grossly intact. IMPRESSION: There is no hemorrhage, mass effect, or evidence of acute territorial ischemia by CT criteria. ACT 112: Negative or not required by law. Electronically signed by: Gatito Nuno M.D. 09/08/2021 5:38 PM Chest X-Ray 09/08/21 16:49 SINGLE VIEW CHEST CLINICAL HISTORY: Generalized weakness. FINDINGS: 2 AP, portable, upright chest radiographs are compared to study dated 05/24/2015. The heart is mildly enlarged noting atherosclerotic calcification of the thoracic aorta. The pulmonary vasculature is noncongested. Mild atelectasis is noted at the lung bases. A calcified granuloma is noted at the left lung base. The lungs and pleural spaces are otherwise clear. No pneumothorax is seen. The skeletal structures are osteopenic. The bony thorax is grossly intact. A right shoulder arthroplasty is in place. Advanced arthritic change is noted in the left shoulder. Fusion hardware is partially visualized in the lumbar spine. IMPRESSION: No active disease in the chest. ACT 112: Negative or not required by law. Electronically signed by: Gatito Nuno M.D. 09/08/2021 5:05 PM Diagnostic Findings EKG as per my interpretation:Rate 75, NSR, normal axis, T wave abnormalities septal leads
[2021-09-08] MEDS: PANTOprazole 40 MG in DEXTROSE 5% 100 ML IV SCH ×2 (19:56→23:45)
[2021-09-08] MEDS ORDERED: SODIUM CHLORIDE 0.9% 1000ML 1,000 ML IV ONE (20:05)
--- NOTE | 2021-09-08 20:16 | XRay Report ---
KUB CLINICAL HISTORY: Enteric tube placement. FINDINGS: An AP, portable, upright view of the lower chest and upper abdomen is correlated with abdom inal CT dated 09/08/2021. An enteric tube has been placed. The tip projects below the diaphragm over t he proximal stomach. There is no radiographic evidence of bowel obstruction in the upper abdomen. No evidence of intraperitoneal free air is identified. The lung bases are clear as imaged. Fusion hardwa re is noted in the spine. IMPRESSION: Enteric tube placement as above. Electronically signed by: Gatito Nuno M.D. 09/08/2021 8:15 PM
[2021-09-08 20:55] LABS: Hemoglobin 8.6 g/dL (14.0-18.0)
[2021-09-08 21:04] LABS: Partial Thromboplastin Ratio 0.8; Partial Thromboplastin Time 21.5 Seconds (21.0-31.0)
[2021-09-08] MEDS ORDERED: DEXTROSE 50% 50 ML SYRINGE IV PRN (21:33)
[2021-09-08] MEDS ORDERED: GLUCOSE 40% GEL 15 GM TUBE PO PRN (21:33)
[2021-09-08] MEDS ORDERED: GLUCOSE 10 TABS/TUBE PO PRN (21:33)
[2021-09-08] MEDS ORDERED: INSULIN ASPART PER UNIT SC SCH (21:33)
[2021-09-08] MEDS ORDERED: CARBOHYDRATES FOR HYPOGLYCEMIA PO PRN (21:33)
[2021-09-08] MEDS ORDERED: GLUCAGON FOR INJ 1 MG VIAL SQ PRN (21:33)
[2021-09-08] MEDS ORDERED: LORazepam 2 MG/1 ML VIAL IV PRN (21:33)
[2021-09-08 21:50] LABS: Troponin I 0.05 ng/ml (0-0.04)
[2021-09-08] MEDS: MoRPHine SULFATE 2 MG/ML CARP IV PRN (22:01)
[2021-09-08] MEDS: AMITRIPTYLINE HCL 10 MG TAB PO SCH (22:25)
[2021-09-08] MEDS: METOPROLOL TARTRATE 1 MG/ML VIAL IV SCH (23:01)
[2021-09-09] MEDS ORDERED: HALOPERIDOL LACTATE 5 MG/ML 1 ML VIAL IM PRN (01:53)
--- NOTE | 2021-09-09 01:59 | Communication Note ---
Date of Service: September 09, 2021 Patient with episodes of confusion as per RN. Ripped out IV site and NGT. AP Delirium One-to-one RN discretion Haldol as needed agitation Hold neuropsychotropic meds for now until patient mentation back to baseline Check UA to rule out UTI
[2021-09-09] MEDS: MoRPHine SULFATE 2 MG/ML CARP IV PRN ×4 (03:30→20:35)
[2021-09-09] MEDS: ACETAMINOPHEN 1,000 MG/100 ML VIAL IV PRN ×2 (04:49→15:45)
[2021-09-09] MEDS: PANTOprazole 40 MG in DEXTROSE 5% 100 ML IV SCH ×4 (05:20→20:08)
[2021-09-09] MEDS: METOPROLOL TARTRATE 1 MG/ML VIAL IV SCH ×4 (05:32→23:16)
[2021-09-09 05:36] LABS: Hematocrit (blood only) 25.1 % (42-52); Mean Corpuscular Hemoglobin 23.5 pg (25-34); Mean Corpuscular Hgb Conc 31.9 g/dL (32-36); Mean Corpuscular Volume 73.6 fL (80-100); Mean Platelet Volume 9.3 fL (7.4-10.4); Platelet Count 305 K/uL (130-400); RDW Coefficient of Variation 16.1 % (11.5-14.5); RDW Standard Deviation 43.6 fL (36.4-46.3); Red Blood Count 3.41 M/uL (4.7-6.1); White Blood Count 24.42 K/uL (4.8-10.8)
[2021-09-09 06:02] LABS: BUN Creatinine Ratio 36.3 (10-20); Calcium 7.8 mg/dl (8.5-10.1); Creatinine Clr Calc Pharmacy 65.2 ml/min; Est GFR (African American) 85.9 ml/min; Est GFR (Non-African American) 74.1 ml/min; Potassium 4.8 mmol/L (3.5-5.1)
[2021-09-09 06:04] LABS: Troponin I 0.07 ng/ml (0-0.04)
[2021-09-09] MEDS: INSULIN ASPART PER UNIT SC SCH ×3 (06:07→18:20)
[2021-09-09 06:10] LABS: Basophils # (auto) 0.02 K/uL (0-0.2); Basophils % (auto) 0.1 %; Immature Granulocytes # (auto) 0.05 K/uL (0.00-0.02); Immature Granulocytes % (auto) 0.2 %; Lymphocytes # (auto) 2.34 K/uL (1.2-3.4); Lymphocytes % (auto) 9.6 %; Monocytes # (auto) 1.29 K/uL (0.11-0.59); Monocytes % (auto) 5.3 %; Neutrophils # (auto) 20.72 K/uL (1.4-6.5); Neutrophils % (auto) 84.8 %
[2021-09-09] MEDS: ATORVASTATIN 40 MG TAB PO SCH (07:49)
[2021-09-09] MEDS: FLUoxetine HCL 20 MG CAP PO SCH (07:49)
[2021-09-09] MEDS: CEROVITE ADV FORMULA TAB PO SCH (07:49)
[2021-09-09] MEDS ORDERED: buPROPion XL 150 MG TABCR PO SCH (09:00)
[2021-09-09 09:22] LABS: Appearance Urine Clear (Clear); Bilirubin Urine Negative (Negative); Blood Urine Negative (Negative); Color Urine Yellow; Glucose Urine UA Negative (Negative); Ketones Urine Trace (Negative); Leukocyte Esterase Urine Negative (Negative); Nitrite Urine Negative (Negative); Protein Urine Negative (Negative); Specific Gravity Urine 1.021 (1.000-1.030); Urobilinogen Urine Negative (Negative)
--- NOTE | 2021-09-09 09:30 | Anesthesiology Consultation ---
Date of Service September 09, 2021 Assessment & Plan (1) Gastric outlet obstruction: (2) Acute upper GI bleed: (3) Diabetes mellitus, type II: (4) History of CVA (cerebrovascular accident): (5) H/O restrictive lung disease: Chart Review Chart Review: Acceptable Risk for Surgery Consults Requested none ASA ASA3 Proposed Anesthesia Anesthesia Type: General Risk / Benefits Reviewed With: PT / POA / Parent / Guardian, Accepts Plan and Informed Consent Obtained Additional Comments: pt accepts R/B including risk of repeat CVA. History Surgery Operation Date: 09/09/21 16:45 Proposed Procedures p Esophagogastroduodenoscopy Dr. Boni Plata MD Height/Weight Height: 5 ft 8 in Weight: 76.6 kg Allergies Allergy/AdvReac Type Severity Reaction Status Date / Time tetracycline Allergy Mild RASH Verified 09/09/21 10:19 Medications Home Medications Medication Instructions Recorded Confirmed Last Taken albuterol sulfate 90 mcg/actuation 2 puff INHALATION Q4 PRN 09/08/21 09/08/21 Unknown aerosol inhaler amitriptyline 10 mg tablet 10 mg PO HS 09/08/21 09/08/21 Unknown aspirin 325 mg tablet 325 mg PO DAILY 09/08/21 09/08/21 Unknown atorvastatin 40 mg tablet 40 mg PO DAILY 09/08/21 09/08/21 Unknown bupropion HCl 150 mg 24 hr tablet, 150 mg PO DAILY 09/08/21 09/08/21 Unknown extended release calcium carbonate 500 mg calcium 500 mg PO TID 09/08/21 09/08/21 Unknown (1,250 mg) chewable tablet clopidogrel 75 mg tablet 75 mg PO QAM 09/08/21 09/08/21 Unknown fluoxetine 20 mg capsule 20 mg PO DAILY 09/08/21 09/08/21 Unknown fluoxetine 40 mg capsule 40 mg PO DAILY 09/08/21 09/08/21 Unknown lorazepam 1 mg tablet 1 mg PO HS PRN 09/08/21 09/08/21 Unknown meloxicam 15 mg tablet 15 mg PO DAILY 09/08/21 09/08/21 Unknown metformin 500 mg tablet 500 mg PO BID 09/08/21 09/08/21 Unknown axwxyiiv-gqe-gpqxe acid 0.4 1 tab PO DAILY 09/08/21 09/08/21 Unknown mg-lycopene 300 mcg-lutein 250 mcg tablet (Centrum Silver) pantoprazole 40 mg tablet,delayed 40 mg PO DAILYBB 09/08/21 09/08/21 Unknown release propranolol 160 mg capsule,24 160 mg PO DAILY 09/08/21 09/08/21 Unknown hr,extended release rizatriptan 10 mg tablet 10 mg PO UD PRN 09/08/21 09/08/21 Unknown tramadol 50 mg tablet 50 mg PO Q6 PRN 09/08/21 09/08/21 Unknown Active Medications Generic Name Dose Route Start Last Admin Trade Name Freq PRN Reason Stop Dose Admin Amitriptyline HCl 10 mg 09/08/21 21:45 09/08/21 22:25 Amitriptyline Hcl 10 Mg Tab PO 10/08/21 21:44 10 mg HS SHERIE Administration Atorvastatin Calcium 40 mg 09/09/21 09:00 09/09/21 07:49 Atorvastatin 40 Mg Tab PO 10/09/21 08:59 40 mg DAILY SHERIE Administration Fluoxetine HCl 40 mg 09/09/21 09:00 09/09/21 07:49 Fluoxetine Hcl 20 Mg Cap PO 10/09/21 08:59 40 mg DAILY SHERIE Administration Pantoprazole Sodium 40 mg/ 100 mls @ 20 mls/hr 09/08/21 19:00 09/09/21 09:38 Dextrose IV 10/08/21 18:59 8 mg/hr Q5H SHERIE 20 mls/hr Administration 8 MG/HR Sodium Chloride 1,000 mls @ 50 mls/hr 09/08/21 20:05 09/08/21 20:09 Nss 1000ml IV 09/09/21 16:04 50 mls/hr .Q20H ONE Administration Acetaminophen 1,000 mg in 100 mls @ 400 mls/hr 09/08/21 20:58 09/09/21 05:04 Ofirmev IV 09/11/21 20:57 Infused Q8H PRN Infusion pain/fever Insulin Aspart 0 units 09/09/21 06:00 09/09/21 06:07 Insulin Aspart Per Unit SC 10/09/21 05:59 Not Given Q6 SHERIE Metoprolol Tartrate 2.5 mg 09/09/21 00:00 09/09/21 05:32 Metoprolol Tartrate 1 Mg/Ml Vial IV 10/09/21 00:00 2.5 mg Q6 SHERIE Administration Protocol Morphine Sulfate 2 mg 09/08/21 20:58 09/09/21 07:43 Morphine Sulfate 2 Mg/Ml Carp IV 09/22/21 20:57 2 mg Q4H PRN Administration Pain Multivitamins/Minerals 1 tab 09/09/21 09:00 09/09/21 07:49 Cerovite Adv Formula Tab PO 10/09/21 08:59 1 tab DAILY SHERIE Administration NPO Date Last Intake of Fluids: 09/09/21 Time Last Intake of Fluids: 08:00 Last Intake of Fluids Comment: sips with pills. no vomiting,NGT with 400ml o utput O/N and 175ml in preop Date Last Intake of Solids: 09/08/21 Time Last Intake of Solids: 13:00 Past Medical History Medical History (Updated 09/09/21 @ 10:28 by Bianca Jacobs DO) Abdominal pain, acute, epigastric Acute upper GI bleed Depression Diabetes mellitus, type II DJD (degenerative joint disease) DJD (degenerative joint disease), multiple sites Dyslipidemia Gastric outlet obstruction H/O asbestos exposure H/O migraine with aura H/O restrictive lung disease History of CVA (cerebrovascular accident) "05/2015", no residual deficit History of tobacco abuse HTN (hypertension) Nausea & vomiting Obstructive sleep apnea on CPAP Slurred speech Syncope and collapse Exercise / Class Metabolic Activity III < 4 Walking/Shop/Light housework Past Surgical History Surgical History History of colonoscopy History of lumbar laminectomy "2000,2001,2004,2006" History of right hip replacement "01/2015" Past Anesthesia History No Hx of Anesthesia Complications and No Family Hx of Anesthesia Complications History of PONV No Hx of PONV and No Hx of Motion Sickness Social History Smoking Status: Former smoker tobacco type: cigarettes Smoking End Date: Pt. was former 1 PPD smoker/quit 8 years ago Hx Alcohol Use: No Hx Substance Use: No substance use type: does not use Physical Exam Vital Signs Last Vital Signs Temp 36.9 C 09/09/21 10:01 Pulse 90 09/09/21 10:01 Resp 20 09/09/21 07:33 BP 153/72 H 09/09/21 10:01 Pulse Ox 95 09/09/21 10:01 dark red 175ml output NGT immed preop ENMT Mouth: + dentition abnormality (multiple missing teeth with upper right molar with decay); no TMJ abnormality Thyromental Distance: > or= 3.5 Finger Breadths Mallampati Class: II Mouth / Teeth: 1. Neck normal visual inspection and trachea midline; neck extension not limited Respiratory normal respiratory effort Auscultation: lungs clear to auscultation bilaterally and + diminished lung sounds (equal BL) Cardiovascular Rate/Rhythm: regular rate and regular rhythm Heart Sounds: no murmur Musculoskeletal Spine: normal cervical ROM Extremities: full ROM of extremities Neurologic moves all extremities Psychiatric Orientation: alert and oriented x 3 Testing Laboratory Results 09/09/21 05:20 09/09/21 05:20 APTT 21.5 Seconds (21.0-31.0) 09/08/21 20:44 Urine Color Yellow 09/09/21 09:05 Urine Appearance Clear (Clear) 09/09/21 09:05 Urine pH 5.0 (4.5-7.5) 09/09/21 09:05 Ur Specific [place] 1.021 (1.000-1.030) 09/09/21 09:05 Urine Protein Negative (Negative) 09/09/21 09:05 Urine Glucose (UA) Negative (Negative) 09/09/21 09:05 Urine Ketones Trace (Negative) H 09/09/21 09:05 Urine Nitrite Negative (Negative) 09/09/21 09:05 Ur Leukocyte Esterase Negative (Negative) 09/09/21 09:05 Blood Type A Positive 09/08/21 17:12 Antibody Screen NEGATIVE 09/08/21 17:12 09/09/21 06:03 POC Glucose 117 H Electrocardiogram Date: 09/09/21 Findings: + NSR @ (91) Chest X-Ray Date: 09/09/21 Findings: + NAD
--- NOTE | 2021-09-09 09:46 | Gastrointestinal Consultation ---
Date of Consultation September 09, 2021 Assessment & Plan (1) Nausea & vomiting: (2) Gastric outlet obstruction: (3) Acute upper GI bleed: abnormal CT scan showing hematoma and GOO in duodenum; likely GI bleed after fall, now with NG tube showing coffee ground material and dark blood. recs: Proceed with EGD/push enteroscopy today to further evaluate risks/benefits and procedure discussed with patient, who agrees to proceed supportive care NPO IV protonix BID IVFs Thank you for allowing me to participate in the care of this patient. History of Present Illness Attending Physician: En Berkowitz MD History of Present Illness 71 yo male with CVA, AAA status post surgery, COPD, HTN, HLD, DM2, chronic anemia with baseline hgb 12 here with vomiting,syncope. Patient had abd pains and coffee ground emesis, noted some lightheadedness, had a possible syncopal event. NGT with coffee ground and dark bloody return, on PPI IV now, hgb noted to be 8 after hydration. He is on plavix and NSAIDS. CT A/P showed duodenal hematoma and gastric outlet obstruction. labs and vitals reviewed. Allergies Allergy/AdvReac Type Severity Reaction Status Date / Time tetracycline Allergy Mild RASH Verified 09/08/21 19:47 Home Medications Medication Instructions Recorded Confirmed Type albuterol sulfate 90 mcg/actuation 2 puff INHALATION Q4 PRN 09/08/21 09/08/21 History aerosol inhaler amitriptyline 10 mg tablet 10 mg PO HS 09/08/21 09/08/21 History aspirin 325 mg tablet 325 mg PO DAILY 09/08/21 09/08/21 History atorvastatin 40 mg tablet 40 mg PO DAILY 09/08/21 09/08/21 History bupropion HCl 150 mg 24 hr tablet, 150 mg PO DAILY 09/08/21 09/08/21 History extended release calcium carbonate 500 mg calcium 500 mg PO TID 09/08/21 09/08/21 History (1,250 mg) chewable tablet clopidogrel 75 mg tablet 75 mg PO QAM 09/08/21 09/08/21 History fluoxetine 20 mg capsule 20 mg PO DAILY 09/08/21 09/08/21 History fluoxetine 40 mg capsule 40 mg PO DAILY 09/08/21 09/08/21 History lorazepam 1 mg tablet 1 mg PO HS PRN 09/08/21 09/08/21 History meloxicam 15 mg tablet 15 mg PO DAILY 09/08/21 09/08/21 History metformin 500 mg tablet 500 mg PO BID 09/08/21 09/08/21 History iivxoqyd-qjf-obvvz acid 0.4 1 tab PO DAILY 09/08/21 09/08/21 History mg-lycopene 300 mcg-lutein 250 mcg tablet (Centrum Silver) pantoprazole 40 mg tablet,delayed 40 mg PO DAILYBB 09/08/21 09/08/21 History release propranolol 160 mg capsule,24 160 mg PO DAILY 09/08/21 09/08/21 History hr,extended release rizatriptan 10 mg tablet 10 mg PO UD PRN 09/08/21 09/08/21 History tramadol 50 mg tablet 50 mg PO Q6 PRN 09/08/21 09/08/21 History Patient History Medical History Abdominal pain, acute, epigastric Acute upper GI bleed Depression Diabetes mellitus, type II DJD (degenerative joint disease) DJD (degenerative joint disease), multiple sites Dyslipidemia Gastric outlet obstruction H/O asbestos exposure H/O migraine with aura H/O restrictive lung disease History of CVA (cerebrovascular accident) "05/2015" History of tobacco abuse HTN (hypertension) Nausea & vomiting Obstructive sleep apnea on CPAP Slurred speech Syncope and collapse Surgical History History of colonoscopy History of lumbar laminectomy "2000,2001,2004,2006" History of right hip replacement "01/2015" Social History Smoking Status: Former smoker Smoking End Date: Pt. was former 1 PPD smoker/quit 8 years ago; Second Hand Exposure: No; Tobacco Cessation Education Requested by Patient: No Hx Alcohol Use: No Hx Substance Use: No Preferred Language: Swedish Communication Ability: Effective [employer] Field Agent Required: No Beliefs That Will Affect Care: None Current Living Situation: Spouse Current Living Situation Comment: Lives w/ Other Information That Helps Us Care for You: No Feels Safe at Home: Yes Safety Concerns: Feels Safe At This Time Assistive Devices: Cane Assistive Devices Comment: Pt. states he uses cane at home Review of Systems Constitutional: no fever, no chills and no weight loss Eyes: as per Subjective / HPI Ear, Nose, Mouth, Throat: as per Subjective / HPI Respiratory: no dyspnea and no dyspnea on exertion Cardiovascular: no chest pain and no palpitations Gastrointestinal: as per Subjective / HPI Musculoskeletal: no joint pain and no swelling Integumentary: no rash and no lesions Neurologic: no numbness and no paresthesia Psychiatric: no depression and no anxiety Endocrine: no fatigue Hematologic / Lymphatic: no easy bleeding and no easy bruising Physical Exam Constitutional: WD/WN, vitals as above Eyes: EOM intact bilaterally Neck: normal visual inspection Respiratory: normal respiratory effort, lungs clear to auscultation Cardiovascular: RRR, no murmur, no edema Gastrointestinal (Abdomen): Inspection/Auscultation: abdomen normal to inspection; abdomen not distended Percussion/Palpation: abdomen soft; abdomen nontender and no hepatosplenomegaly Musculoskeletal: Extremities: no cyanosis Gait: normal gait Skin: no rashes, warm and dry Neurologic: moves all extremities Psychiatric: Orientation: alert and oriented to person; + not oriented to place and + not oriented to time Affect: euthymic affect Results & Data ([facility]) Vital Signs (Past 12 Hours) Vital Signs Temp Pulse Pulse Resp BP BP BP 09/09/21 07:38 85 09/09/21 07:33 36.9 C 85 20 163/79 H 09/09/21 05:32 90 170/78 H 09/09/21 05:31 90 18 170/78 H 09/09/21 04:12 37 C 90 16 167/81 H 09/08/21 23:54 79 178/83 H 09/08/21 23:09 36.5 C 66 18 182/90 H 09/08/21 23:01 80 184/81 H 09/08/21 22:28 80 184/81 H 09/08/21 22:17 84 Pulse Ox 09/09/21 07:38 09/09/21 07:33 94 09/09/21 05:32 09/09/21 05:31 96 09/09/21 04:12 96 09/08/21 23:54 09/08/21 23:09 97 09/08/21 23:01 09/08/21 22:28 09/08/21 22:17 PG Care Time/CCT Total # of Minutes Spent Total Time Spent with Patient: Total time spent is greater than 50% in coordination of care (as documented) at patient's floor/unit and/or counseling patient: Coding Level of Care Code 20637 Initial Inpt Care Lvl 3 Diagnoses Nausea & vomiting R11.2 Gastric outlet obstruction K31.1 Acute upper GI bleed K92.2
[2021-09-09] MEDS ORDERED: LIDOCAINE 2% 2 ML VIAL/AMP(20MG/ML) INFIL ONE ×2 (10:10→10:50)
[2021-09-09] MEDS ORDERED: PROPOFOL IV EMULSION 10 MG/ML 20 ML VIAL IV ONE ×2 (10:10→10:50)
--- NOTE | 2021-09-09 12:11 | Procedure Note ---
Procedure Note Date of Service September 09, 2021 Note GI brief procedure note EGD findings: old blood noted in fundus and duodenum. several ulcers in the first and second portion of the duodenum were noted with some luminal narrowing noted from one ulcer. additionally, closer to d3 there was abnormally pale mucosa concerning for possible ischemia, random biopsies of the duodenum were taken. one ulcer in the duodenal sweep was treated with dual therapy (possible visible vessel). recs: --lactate level now --CTA abdomen/pelvis danelle to further evaluate for possible ischemia --IV protonix BID --avoid NSAIDS strictly --hold plavix for 7 days if possible --supportive care, NPO today --if stable tomorrow morning can advance to clears Arsenio Plata MD Gastroenterology Coding
--- NOTE | 2021-09-09 12:17 | GI REPORT ---
Patient Name: Edi Estrada Procedure Date: 09/09/2021 10:06 AM Date of : 1950 Admit Type: Inpatient Age: 71 Gender: Male Attending MD: Arsenio Plata MD Procedure: Upper GI endoscopy Providers: Arsenio Plata MD Referring MD: Tad Berkowitz Md Indications: Coffee-ground emesis, Abnormal CT of the GI tract Medicines: Monitored Anesthesia Care Complications: No immediate complications. Estimated blood loss: None. Estimated Blood Loss: Estimated blood loss: none. Procedure: Pre-Anesthesia Assessment: - Prior Anticoagulants: The patient has taken Plavix (clopidogrel), last dose was 1 day prior to procedure. - ASA Grade Assessment: III - A patient with severe systemic disease. After obtaining informed consent, the endoscope was passed under direct vision. Throughout the procedure, the patient's blood pressure, pulse, and oxygen saturations were monitored continuously. The Colonoscope was introduced through the mouth, and advanced to the third part of duodenum. The upper GI endoscopy was accomplished without difficulty. The patient tolerated the procedure well. The upper GI endoscopy was accomplished without difficulty. Findings: The examined esophagus was normal. Hematin (altered blood/xcvusj-vzxojx-rujd material) was found in the gastric fundus. this was suctioned. stomach otherwise normal. Many non-bleeding cratered duodenal ulcers, one with a visible vessel were found in the first portion of the duodenum and in the second portion of the duodenum. Area was successfully injected with 3 mL of a 1:10,000 solution of epinephrine for hemostasis. For hemostasis, two hemostatic clips were successfully placed. There was no bleeding at the end of the procedure. Diffuse mild mucosal changes characterized by discoloration were found in the second/third portion of the duodenum. Biopsies were taken with a cold forceps for histology. Estimated blood loss: none. Impression: - Normal esophagus. - Hematin (altered blood/stssil-sseikp-zkwa material) in the gastric fundus. - Non-bleeding duodenal ulcers with a visible vessel. Injected. Clips were placed. - Mucosal changes in the duodenum. Biopsied. Recommendation: - Return patient to [facility] for ongoing care. - NPO today. - Await pathology results. -CTA abdomen/pelvis now to further evaluate for possible ischemia - lactate level now -IV protonix 40 mg BID -supportive care -hold plavix for 7 days if possible -avoid NSAIDS altogether Arsenio Plata MD 09/09/2021 12:17:16 PM This report has been signed electronically. Note Initiated On: 09/09/2021 10:06 AM Number of Addenda: 0 I attest to the content of the Intraoperative Record and orders documented therein, exceptions below {[id number]}
--- NOTE | 2021-09-09 12:44 | Anesthesiology Progress Note ---
Date of Service September 09, 2021 Anesthesia Post Procedure Vital Signs Vital Signs: Temp Pulse Pulse Pulse Resp BP BP 09/09/21 12:40 36.8 C 99 H 20 168/78 H 09/09/21 12:30 97 H 20 173/79 H 09/09/21 12:20 86 16 175/81 H 09/09/21 12:12 36.1 C L 84 14 156/77 H 09/09/21 10:01 36.9 C 90 09/09/21 07:38 85 09/09/21 07:33 36.9 C 85 20 09/09/21 05:32 90 170/78 H 09/09/21 05:31 90 18 09/09/21 04:12 37 C 90 16 09/08/21 23:54 79 09/08/21 23:09 36.5 C 66 18 182/90 H 09/08/21 23:01 80 184/81 H 09/08/21 22:28 80 184/81 H 09/08/21 22:17 84 09/08/21 21:33 36.7 C 18 182/83 H 09/08/21 21:17 90 09/08/21 20:38 83 154/110 H 09/08/21 19:00 36.8 C 90 18 184/93 H 09/08/21 16:49 78 16 09/08/21 16:30 36.4 C L 74 73 19 151/90 H 151/90 H BP Pulse Ox Pulse Ox 09/09/21 12:40 94 09/09/21 12:30 96 09/09/21 12:20 98 09/09/21 12:12 98 09/09/21 10:01 153/72 H 95 09/09/21 07:38 09/09/21 07:33 163/79 H 94 09/09/21 05:32 09/09/21 05:31 170/78 H 96 09/09/21 04:12 167/81 H 96 09/08/21 23:54 178/83 H 09/08/21 23:09 97 09/08/21 23:01 09/08/21 22:28 09/08/21 22:17 09/08/21 21:33 98 98 09/08/21 21:17 09/08/21 20:38 09/08/21 19:00 98 09/08/21 16:49 100 09/08/21 16:30 99 Pain Intensity Right Abdomen: Pain Intensity: 9 Bilateral Abdomen: Pain Intensity: 0 Medial Abdomen: Pain Intensity: 8 Transfer of Care Handoff Completed per policy Notes Mental Status: alert / awake / arousable and participated in evaluation Patient Amnestic to Procedure: Yes Nausea / Vomiting: adequately controlled Pain: adequately controlled Airway Patency, RR, SpO2: stable & adequate BP & HR: stable & adequate Hydration State: stable & adequate Anesthetic Complications: no major complications apparent
[2021-09-09] MEDS ORDERED: OPTIRAY 320 125ml IV ONE (14:16)
--- NOTE | 2021-09-09 14:40 | CT Scan Report ---
CT angio abdomen pelvis w con CLINICAL HISTORY: concern for bowel ischemia TECHNIQUE: Multidetector row helical CT of the abdomen and pelvis was performed, following intravenou s administration of iodinated contrast. No oral contrast was administered. Automated dose lowering te chniques and/or adjustment according to patient size were utilized for this exam. Coronal and sagitta l reformations were obtained. MIP and 3D volume rendered reconstructions were obtained. Comparison: Comparison is made to CT abdomen pelvis 09/08/2021 FINDINGS: Lower chest: Atelectatic changes are seen. A few foci of emphysema are seen. Liver: Unremarkable. No focal lesions are seen. Gallbladder and biliary tree: No calcified gallstones. Normal caliber wall. No intra- or extrahepatic biliary ductal dilation. Pancreas: Unremarkable, no focal lesions. Spleen: Unremarkable. Adrenals: Unremarkable. Kidneys and ureters: Unremarkable. Bladder: Unremarkable. Reproductive organs: Unremarkable. Bowel: Diverticulosis is seen without evidence of diverticulitis. The appendix is normal. Lymph nodes Retroperitoneal: Unremarkable. Mesenteric: Unremarkable. Pelvic: Unremarkable. Peritoneum: Normal. Abdominal wall: Unremarkable. Bones: Degenerative changes in the visualized spine. Posterior fixation hardware is seen spanning L1- L3. CT angiogram: Aortobiiliac stent is seen. No significant atherosclerosis is seen. The origins of the celiac axis, superior mesenteric, and bilateral renal arteries are patent. IMPRESSION: 1. Status post aortobiiliac stent. The great vessel origins are patent. 2. Diverticulosis without evidence of diverticulitis. No definite ischemic changes. ACT 112: Negative or not required by law. Electronically signed by: Neno Newby M.D. 09/09/2021 2:39 PM
--- NOTE | 2021-09-09 14:50 | Communication Note ---
Date of Service: September 09, 2021 GI brief note: CTA abd/pelvis noted to be normal, essentially ruling out ischemia. recs: continue protonix BID hold plavix for 7 days advance to clears tomorrow morning if stable supportive care avoid nsaids Arsenio Plata MD Gastroenterology
[2021-09-09 15:12] LABS: Hematocrit (blood only) 24.1 % (42-52); Hemoglobin 7.6 g/dL (14.0-18.0); Mean Corpuscular Hemoglobin 23.2 pg (25-34); Mean Corpuscular Hgb Conc 31.5 g/dL (32-36); Mean Corpuscular Volume 73.7 fL (80-100); Mean Platelet Volume 9.5 fL (7.4-10.4); Platelet Count 307 K/uL (130-400); RDW Coefficient of Variation 16.4 % (11.5-14.5); RDW Standard Deviation 44.5 fL (36.4-46.3); Red Blood Count 3.27 M/uL (4.7-6.1); White Blood Count 24.44 K/uL (4.8-10.8)
[2021-09-09] MEDS ORDERED: SODIUM CHLORIDE 0.9% 250 ML IV PRN (15:55)
--- NOTE | 2021-09-09 18:00 | Hospitalist Progress Note ---
Date of Service September 09, 2021 Assessment & Plan (1) Acute blood loss anemia: Plan: Will give 1 unit pRBC now. Repeat CBC later and transfuse again if Hb<8 (2) Duodenal ulcer: Plan: Maintain NPO status continue protonix drip CTA abd/pelvis requested by GI to evaluate for mesenteric ischemia was negative lactate elevated due to dehydration and active bleed Plan: History of CVA -hold aspirin and plavix. skilled nursing--Patient instructed to follow up with his Neurologist to determine whether he can be taken off either aspirin or plavix. He does NOT have any cardiac stents Depression Mood disorder -continue home medications NIDDM -hold metformin, corrective scale insulin for now DVT ppx SCDs Admission and Anticipated Discharge Date Admission Date: September 08, 2021 Subjective Went for EGD today Reports abdominal discomfort NGT removed prior to EGD family present at bedside and all questions were answered. Family requested that we not refer to his psychotropic medications as such Physical Exam Physical Exam: Pale, non toxic, no acute distress Respiratory: breathing comfortably on room air, no wheezing/rhonchi/rales Cardiovascular: tachycardic, no murmurs/rubs/gallops Gastrointestinal (Abdomen): +epigastric tenderness Musculoskeletal: No edema Neurologic: awake, alert, answering questions Psychiatric: calm and pleasant currently Results & Data Results & Data ([facility]) Vital Signs (Past 12 Hours) Vital Signs Temp Pulse Pulse Pulse Resp BP BP 09/09/21 17:20 36.4 C L 97 H 20 152/66 H 09/09/21 16:27 35.5 C L 18 168/66 H 09/09/21 16:00 90 09/09/21 15:32 36.4 C L 90 20 149/71 H 09/09/21 15:09 36.3 C L 91 H 24 153/70 H 09/09/21 14:40 36.4 C L 91 H 20 161/67 H 09/09/21 14:10 36.3 C L 89 24 162/70 H 09/09/21 13:41 36.6 C 87 24 155/72 H 09/09/21 13:36 95 H 171/72 H 09/09/21 13:25 36.4 C L 95 H 24 171/72 H 09/09/21 13:12 37.1 C 94 H 18 174/76 H 09/09/21 12:50 94 H 20 160/67 H 09/09/21 12:40 36.8 C 99 H 20 168/78 H 09/09/21 12:30 97 H 20 173/79 H 09/09/21 12:20 86 16 175/81 H 09/09/21 12:12 36.1 C L 84 14 156/77 H 09/09/21 10:01 36.9 C 90 09/09/21 07:38 85 09/09/21 07:33 36.9 C 85 20 BP Pulse Ox 09/09/21 17:20 95 09/09/21 16:27 95 09/09/21 16:00 09/09/21 15:32 94 09/09/21 15:09 95 09/09/21 14:40 95 09/09/21 14:10 94 09/09/21 13:41 86 L 09/09/21 13:36 09/09/21 13:25 93 09/09/21 13:12 93 09/09/21 12:50 95 09/09/21 12:40 94 09/09/21 12:30 96 09/09/21 12:20 98 09/09/21 12:12 98 09/09/21 10:01 153/72 H 95 09/09/21 07:38 09/09/21 07:33 163/79 H 94 Laboratory Results Short CBC 09/08/21 09/08/21 09/09/21 Range/Units 17:52 20:44 05:20 WBC 23.61 H 24.42 H (4.8-10.8) K/uL Hgb 9.0 L 8.6 L 8.0 L (14.0-18.0) g/dL Hct 29.1 L 27.0 L 25.1 L (42-52) % Plt Count 385 305 (130-400) K/uL 09/09/21 Range/Units 14:57 WBC 24.44 H (4.8-10.8) K/uL Hgb 7.6 L (14.0-18.0) g/dL Hct 24.1 L (42-52) % Plt Count 307 (130-400) K/uL BMP 09/08/21 09/09/21 17:52 05:20 Sodium 138 138 Potassium 5.0 4.8 Chloride 104 105 Carbon Dioxide 26 26 BUN 33 H 37 H Creatinine 1.13 1.02 Glucose 175 H 119 H Calcium 8.7 7.8 L Cardiac Enzymes 09/08/21 09/08/21 09/09/21 Range/Units 17:52 20:44 05:20 Troponin I 0.05 H* 0.06 H* 0.07 H* (0-0.04) ng/ml Liver Function 09/08/21 Range/Units 17:52 Total Bilirubin 0.6 (0.2-1.0) mg/dl AST 17 (13-39) U/L ALT 11 (7-52) U/L Alkaline Phosphatase 91 (34-104) U/L Albumin 3.5 (3.4-5.0) gm/dl Urine 09/09/21 Range/Units 09:05 Urine Color Yellow Urine Appearance Clear (Clear) Urine pH 5.0 (4.5-7.5) Ur Specific [place] 1.021 (1.000-1.030) Urine Protein Negative (Negative) Urine Glucose (UA) Negative (Negative) Medications Administered Current Inpatient Medications Amitriptyline HCl (Amitriptyline Hcl 10 Mg Tab) 10 mg PO HS SHERIE Stop: 10/08/21 21:44 Last Admin: 09/08/21 22:25 Dose: 10 mg Documented by: Atorvastatin Calcium (Atorvastatin 40 Mg Tab) 40 mg PO DAILY SHERIE Stop: 10/09/21 08:59 Last Admin: 09/09/21 07:49 Dose: 40 mg Documented by: Dextrose (Dextrose 50% 50 Ml Syringe) 25 - 50 ml IV UD PRN; Protocol PRN Reason: Hypoglycemia Protocol Stop: 10/08/21 21:32 Fluoxetine HCl (Fluoxetine Hcl 20 Mg Cap) 40 mg PO DAILY SHERIE Stop: 10/09/21 08:59 Last Admin: 09/09/21 07:49 Dose: 40 mg Documented by: Glucagon (Glucagon For Inj 1 Mg Vial) 1 mg SQ UD PRN; Protocol PRN Reason: Hypoglycemia Protocol Stop: 10/08/21 21:32 Glucose (Glucose 10 Tabs/Tube) 4 - 8 tabs PO UD PRN; Protocol PRN Reason: Hypoglycemia Protocol Stop: 10/08/21 21:32 Glucose (Glucose 40% Gel 15 Gm Tube) 15 - 30 gm PO UD PRN; Protocol PRN Reason: Hypoglycemia Protocol Stop: 10/08/21 21:32 Haloperidol Lactate (Haloperidol Lactate 5 Mg/Ml 1 Ml Vial) 2 mg IM Q2H PRN PRN Reason: Agitation Stop: 10/09/21 01:52 Pantoprazole Sodium 40 mg/ (Dextrose) 100 mls @ 20 mls/hr IV Q5H [facility] Stop: 10/08/21 18:59 Last Admin: 09/09/21 15:00 Dose: 8 mg/hr, 20 mls/hr Documented by: Acetaminophen (Ofirmev) 1,000 mg in 100 mls @ 400 mls/hr IV Q8H PRN PRN Reason: pain/fever Stop: 09/11/21 20:57 Last Infusion: 09/09/21 16:23 Dose: Infused Documented by: Promethazine HCl 12.5 mg/ (Sodium Chloride) 50.5 mls @ 202 mls/hr IV Q6H PRN PRN Reason: Nausea And Vomiting Stop: 10/08/21 21:37 Sodium Chloride (Nss 1000ml) 1,000 mls @ 50 mls/hr IV .Q20H SHERIE Stop: 10/09/21 15:59 Sodium Chloride (Nss) 250 mls @ 15 mls/hr IV .[id number] PRN PRN Reason: For Transfusion Stop: 09/10/21 01:55 Insulin Aspart (Insulin Aspart Per Unit) 0 units SC Q6 [facility] Stop: 10/09/21 05:59 Last Admin: 09/09/21 13:14 Dose: Not Given Documented by: Metoprolol Tartrate (Metoprolol Tartrate 1 Mg/Ml Vial) 2.5 mg IV Q6 [facility]; Protocol Stop: 10/09/21 00:00 Last Admin: 09/09/21 13:36 Dose: 2.5 mg Documented by: Miscellaneous (Carbohydrates For Hypoglycemia ) 15 - 30 gm PO UD PRN PRN Reason: Hypoglycemia Protocol Stop: 10/08/21 21:32 Morphine Sulfate (Morphine Sulfate 2 Mg/Ml Carp) 2 mg IV Q4H PRN PRN Reason: Pain Stop: 09/22/21 20:57 Last Admin: 09/09/21 16:31 Dose: 2 mg Documented by: Multivitamins/Minerals (Cerovite Adv Formula Tab) 1 tab PO DAILY SHERIE Stop: 10/09/21 08:59 Last Admin: 09/09/21 07:49 Dose: 1 tab Documented by:
[2021-09-09] MEDS: SODIUM CHLORIDE 0.9% 1000ML 1,000 ML IV SCH (18:24)
[2021-09-09] MEDS: AMITRIPTYLINE HCL 10 MG TAB PO SCH (20:35)
[2021-09-09 22:01] LABS: Hematocrit (blood only) 26.1 % (42-52); Hemoglobin 8.3 g/dL (14.0-18.0); Mean Corpuscular Hemoglobin 24.1 pg (25-34); Mean Corpuscular Hgb Conc 31.8 g/dL (32-36); Mean Corpuscular Volume 75.9 fL (80-100); Mean Platelet Volume 9.6 fL (7.4-10.4); Platelet Count 280 K/uL (130-400); RDW Coefficient of Variation 17.7 % (11.5-14.5); RDW Standard Deviation 48.2 fL (36.4-46.3); Red Blood Count 3.44 M/uL (4.7-6.1); White Blood Count 25.62 K/uL (4.8-10.8)
[2021-09-09 22:25] LABS: Basophils # (auto) 0.02 K/uL (0-0.2); Basophils % (auto) 0.1 %; Eosinophils # (auto) 0.01 K/uL (0-0.5); Hypochromasia Present; Immature Granulocytes # (auto) 0.12 K/uL (0.00-0.02); Immature Granulocytes % (auto) 0.5 %; Lymphocytes # (auto) 1.01 K/uL (1.2-3.4); Lymphocytes % (auto) 3.9 %; Monocytes # (auto) 3.23 K/uL (0.11-0.59); Monocytes % (auto) 12.6 %; Neutrophils # (auto) 21.23 K/uL (1.4-6.5); Neutrophils % (auto) 82.9 %; Poikilocytosis Present; Polychromasia 1+
[2021-09-09] MEDS: PROMETHAZINE HCL 12.5 MG in SODIUM CHLORIDE 0.9% 50 ML IV PRN (22:31)
[2021-09-10] MEDS: INSULIN ASPART PER UNIT SC SCH ×5 (00:12→20:58)
[2021-09-10] MEDS: MoRPHine SULFATE 2 MG/ML CARP IV PRN (00:37)
[2021-09-10] MEDS: PANTOprazole 40 MG in DEXTROSE 5% 100 ML IV SCH ×5 (01:27→23:13)
[2021-09-10] MEDS: ACETAMINOPHEN 1,000 MG/100 ML VIAL IV PRN ×2 (03:10→17:29)
[2021-09-10] MEDS: METOPROLOL TARTRATE 1 MG/ML VIAL IV SCH ×4 (05:08→23:17)
--- NOTE | 2021-09-10 05:55 | Electrocardiogram Report ---
Test Reason : Blood Pressure : / mmHG Vent. Rate : 076 BPM Atrial Rate : 076 BPM P-R Int : 148 ms QRS Dur : 076 ms QT Int : 412 ms P-R-T Axes : 066 051 072 degrees QTc Int : 463 ms Poor data quality, interpretation may be adversely affected Normal sinus rhythm Normal ECG When compared with ECG of 24-MAY-2015 10:29, No significant change was found Confirmed by David Mondragon ([id number]) on 09/10/2021 5:55:20 AM Referred By: REFERRED SELF Confirmed By:David Mondragon
--- NOTE | 2021-09-10 06:18 | Electrocardiogram Report ---
Test Reason : Blood Pressure : / mmHG Vent. Rate : 091 BPM Atrial Rate : 091 BPM P-R Int : 146 ms QRS Dur : 082 ms QT Int : 370 ms P-R-T Axes : 053 018 067 degrees QTc Int : 455 ms Normal sinus rhythm Normal ECG When compared with ECG of 08-SEP-2021 18:35, Premature atrial complexes are no longer Present T wave amplitude has decreased in Anterior leads Confirmed by David Mondragon ([id number]) on 09/10/2021 6:17:58 AM Referred By: REFERRED SELF Confirmed By:David Mondragon
[2021-09-10 07:10] LABS: Hematocrit (blood only) 23.7 % (42-52); Hemoglobin 7.9 g/dL (14.0-18.0); Mean Corpuscular Hemoglobin 25.2 pg (25-34); Mean Corpuscular Hgb Conc 33.3 g/dL (32-36); Mean Corpuscular Volume 75.5 fL (80-100); Mean Platelet Volume 9.5 fL (7.4-10.4); Platelet Count 272 K/uL (130-400); RDW Coefficient of Variation 17.3 % (11.5-14.5); RDW Standard Deviation 47.9 fL (36.4-46.3); Red Blood Count 3.14 M/uL (4.7-6.1); White Blood Count 24.79 K/uL (4.8-10.8)
[2021-09-10 07:33] LABS: BUN Creatinine Ratio 27.6 (10-20); Calcium 7.5 mg/dl (8.5-10.1); Creatinine Clr Calc Pharmacy 87.5 ml/min; Est GFR (African American) 107.1 ml/min; Est GFR (Non-African American) 92.4 ml/min; Phosphorus 2.1 mg/dl (2.5-4.9); Potassium 3.5 mmol/L (3.5-5.1)
[2021-09-10] MEDS: ATORVASTATIN 40 MG TAB PO SCH (07:55)
[2021-09-10] MEDS: CEROVITE ADV FORMULA TAB PO SCH (07:55)
[2021-09-10] MEDS: FLUoxetine HCL 20 MG CAP PO SCH (07:55)
[2021-09-10] MEDS ORDERED: SODIUM CHLORIDE 0.9% 250 ML IV PRN (08:25)
[2021-09-10] MEDS ORDERED: POTASSIUM PHOS 3 MMOL/1 ML INFUSION IV STA (13:22)
--- NOTE | 2021-09-10 13:28 | Hospitalist Progress Note ---
Date of Service September 10, 2021 Assessment & Plan (1) Acute blood loss anemia: Plan: s/p 1 unit pRBC 09/09 s/p 1 unit pRBC 09/10. Repeat H/H at 3pm. Transfuse if Hb<8 (2) Duodenal ulcer: Plan: continue protonix drip CTA abd/pelvis requested by GI to evaluate for mesenteric ischemia was negative lactate elevated due to dehydration and active bleed Advance to clears Plan: History of CVA -hold aspirin and plavix. skilled nursing--Patient instructed to follow up with his Neurologist to determine whether he can be taken off either aspirin or plavix. He does NOT have any cardiac stents Depression Mood disorder -continue home medications NIDDM -hold metformin, corrective scale insulin for now DVT ppx SCDs Admission and Anticipated Discharge Date Admission Date: September 08, 2021 Subjective Reports epigastric abdominal pain No further vomiting s/p 1 unit pRBC yesterday Getting 1 unit pRBC now Physical Exam Physical Exam: Appears pale, no acute distress, non toxic Respiratory: breathing comfortably on room air, no wheezing/rhonchi/rales Cardiovascular: regular rate and rhythm, no murmurs/rubs/gallops Gastrointestinal (Abdomen): +epigastric tenderness Musculoskeletal: no edema Neurologic: awake, alert, spontaneously moving extremities Results & Data Results & Data ([facility]) Vital Signs (Past 12 Hours) Vital Signs Temp Pulse Pulse Resp BP BP Pulse Ox 09/10/21 13:12 36.8 C 84 18 162/84 H 96 09/10/21 12:13 37.2 C 84 18 186/78 H 97 09/10/21 11:45 89 181/80 H 09/10/21 11:13 36.4 C L 89 18 181/80 H 96 09/10/21 10:43 37.0 C 92 H 18 182/78 H 97 09/10/21 10:28 36.4 C L 91 H 18 181/77 H 100 09/10/21 10:10 36.9 C 93 H 18 181/74 H 93 09/10/21 06:54 36.4 C L 98 H 18 165/77 H 93 09/10/21 06:15 100 H 09/10/21 05:08 105 H 173/81 H 09/10/21 05:07 105 H 173/81 H Laboratory Results Short CBC 0409/09/21 09/10/21 Range/Units 14:57 21:47 06:04 WBC 24.44 H 25.62 H 24.79 H (4.8-10.8) K/uL Hgb 7.6 L 8.3 L 7.9 L (14.0-18.0) g/dL Hct 24.1 L 26.1 L 23.7 L (42-52) % Plt Count 307 280 272 (130-400) K/uL [facility] 09/10/21 06:04 Sodium 138 Potassium 3.5 D Chloride 107 Carbon Dioxide 25 BUN 21 Creatinine 0.76 Glucose 87 Calcium 7.5 L Medications Administered Current Inpatient Medications Amitriptyline HCl (Amitriptyline Hcl 10 Mg Tab) 10 mg PO HS SHERIE Stop: 10/08/21 21:44 Last Admin: 09/09/21 20:35 Dose: 10 mg Documented by: Atorvastatin Calcium (Atorvastatin 40 Mg Tab) 40 mg PO DAILY SHERIE Stop: 10/09/21 08:59 Last Admin: 09/10/21 07:55 Dose: 40 mg Documented by: Dextrose (Dextrose 50% 50 Ml Syringe) 25 - 50 ml IV UD PRN; Protocol PRN Reason: Hypoglycemia Protocol Stop: 10/08/21 21:32 Fluoxetine HCl (Fluoxetine Hcl 20 Mg Cap) 40 mg PO DAILY SHERIE Stop: 10/09/21 08:59 Last Admin: 09/10/21 07:55 Dose: 40 mg Documented by: Glucagon (Glucagon For Inj 1 Mg Vial) 1 mg SQ UD PRN; Protocol PRN Reason: Hypoglycemia Protocol Stop: 10/08/21 21:32 Glucose (Glucose 10 Tabs/Tube) 4 - 8 tabs PO UD PRN; Protocol PRN Reason: Hypoglycemia Protocol Stop: 10/08/21 21:32 Glucose (Glucose 40% Gel 15 Gm Tube) 15 - 30 gm PO UD PRN; Protocol PRN Reason: Hypoglycemia Protocol Stop: 10/08/21 21:32 Haloperidol Lactate (Haloperidol Lactate 5 Mg/Ml 1 Ml Vial) 2 mg IM Q2H PRN PRN Reason: Agitation Stop: 10/09/21 01:52 Pantoprazole Sodium 40 mg/ (Dextrose) 100 mls @ 20 mls/hr IV Q5H [facility] Stop: 10/08/21 18:59 Last Admin: 09/10/21 11:47 Dose: 8 mg/hr, 20 mls/hr Documented by: Acetaminophen (Ofirmev) 1,000 mg in 100 mls @ 400 mls/hr IV Q8H PRN PRN Reason: pain/fever Stop: 09/11/21 20:57 Last Infusion: 09/10/21 03:25 Dose: Infused Documented by: Promethazine HCl 12.5 mg/ (Sodium Chloride) 50.5 mls @ 202 mls/hr IV Q6H PRN PRN Reason: Nausea And Vomiting Stop: 10/08/21 21:37 Last Infusion: 09/09/21 22:46 Dose: Infused Documented by: Sodium Chloride (Nss 1000ml) 1,000 mls @ 50 mls/hr IV .Q20H [facility]IE Stop: 10/09/21 15:59 Last Admin: 09/09/21 18:24 Dose: 50 mls/hr Documented by: Sodium Chloride (Nss) 250 mls @ 15 mls/hr IV .[id number] PRN PRN Reason: For Transfusion Stop: 09/10/21 18:25 Potassium Phosphate 15 mmol/ (Dextrose) 255 mls @ 88 mls/hr IV NOW ONE Stop: 09/10/21 16:53 Insulin Aspart (Insulin Aspart Per Unit) 0 units SC Q6 [facility] Stop: 10/09/21 05:59 Last Admin: 09/10/21 11:56 Dose: Not Given Documented by: Metoprolol Tartrate (Metoprolol Tartrate 1 Mg/Ml Vial) 2.5 mg IV Q6 [facility]; Protocol Stop: 10/09/21 00:00 Last Admin: 09/10/21 11:45 Dose: 2.5 mg Documented by: Miscellaneous (Carbohydrates For Hypoglycemia ) 15 - 30 gm PO UD PRN PRN Reason: Hypoglycemia Protocol Stop: 10/08/21 21:32 Morphine Sulfate (Morphine Sulfate 2 Mg/Ml Carp) 2 mg IV Q4H PRN PRN Reason: Pain Stop: 09/22/21 20:57 Last Admin: 09/10/21 00:37 Dose: 2 mg Documented by: Multivitamins/Minerals (Cerovite Adv Formula Tab) 1 tab PO DAILY SHERIE Stop: 10/09/21 08:59 Last Admin: 09/10/21 07:55 Dose: 1 tab Documented by: Potassium Phosphate (Potassium Phos 3 Mmol/1 Ml Infusion) 15 mmol IV NOW STA Stop: 09/10/21 13:23
--- NOTE | 2021-09-10 13:54 | Gastroenterology Progress Note ---
Date of Service September 10, 2021 Assessment & Plan (1) Duodenal ulcer: (2) Acute blood loss anemia: Plan: GI bleed from duodenal ulcers, pain likely from fall/trauma recs: --complete 72 hours of protonix drip then BID thereafter --advance diet to clears tonight, then advance as tolerated tomorrow if stable --supportive care, pain control prn, antiemetics prn --IVFs --avoid NSAIDs strictly going forward --hold plavix for 7 days total from the EGD -can follow up with [facility] in 1-2 weeks after discharge Admission and Anticipated Discharge Date Admission Date: September 08, 2021 Subjective no events overnight, received 1 unit PRBC, no further hematemesis. pain has improved but still has some particularly RUQ. labs reviewed, hgb 7.9 this morning. Review of Systems Constitutional: no fever and no chills Respiratory: no cough, no dyspnea and no dyspnea on exertion Cardiovascular: no chest pain and no dyspnea Gastrointestinal: as per Subjective / HPI Psychiatric: no depression and no anxiety Physical Exam Constitutional: WD/WN, vitals as above Respiratory: normal respiratory effort, lungs clear to auscultation Cardiovascular: RRR, no murmur, no edema Gastrointestinal (Abdomen): Inspection/Auscultation: normal bowel sounds Percussion/Palpation: + abdomen tender (RUQ moderate) and abdomen soft; no splenomegaly Musculoskeletal: no lower extremity edema Psychiatric: A+Ox3, euthymic affect Results & Data Results & Data ([facility]) Vital Signs (Past 12 Hours) Vital Signs Temp Pulse Pulse Resp BP BP Pulse Ox 09/10/21 13:12 36.8 C 84 18 162/84 H 96 09/10/21 12:13 37.2 C 84 18 186/78 H 97 09/10/21 11:45 89 181/80 H 09/10/21 11:13 36.4 C L 89 18 181/80 H 96 09/10/21 10:43 37.0 C 92 H 18 182/78 H 97 09/10/21 10:28 36.4 C L 91 H 18 181/77 H 100 09/10/21 10:10 36.9 C 93 H 18 181/74 H 93 09/10/21 06:54 36.4 C L 98 H 18 165/77 H 93 09/10/21 06:15 100 H 09/10/21 05:08 105 H 173/81 H 09/10/21 05:07 105 H 173/81 H PG Care Time/CCT Total # of Minutes Spent Total Time Spent with Patient: Total time spent is greater than 50% in coordination of care (as documented) at patient's floor/unit and/or counseling patient: Coding Level of Care Code 56851 Subseq Hosp Care Lvl 3 Diagnoses Duodenal ulcer K26.9 Acute blood loss anemia D62
[2021-09-10] MEDS ORDERED: POTASSIUM PHOSPHATE 15 MMOL in DEXTROSE 5% 250 ML IV ONE (14:00)
[2021-09-10] MEDS: SODIUM CHLORIDE 0.9% 1000ML 1,000 ML IV SCH (14:11)
[2021-09-10 15:13] LABS: Hemoglobin 9.5 g/dL (14.0-18.0)
[2021-09-10] MEDS ORDERED: Nursing to Pharmacy Communication SCH (15:15)
[2021-09-10] MEDS: AMITRIPTYLINE HCL 10 MG TAB PO SCH (20:33)
[2021-09-11] MEDS: PANTOprazole 40 MG in DEXTROSE 5% 100 ML IV SCH ×4 (04:36→21:16)
[2021-09-11] MEDS: METOPROLOL TARTRATE 1 MG/ML VIAL IV SCH (04:54)
[2021-09-11 06:44] LABS: Hematocrit (blood only) 28.3 % (42-52); Hemoglobin 9.3 g/dL (14.0-18.0); Mean Corpuscular Hemoglobin 25.4 pg (25-34); Mean Corpuscular Hgb Conc 32.9 g/dL (32-36); Mean Corpuscular Volume 77.3 fL (80-100); Mean Platelet Volume 9.2 fL (7.4-10.4); Platelet Count 260 K/uL (130-400); RDW Coefficient of Variation 17.9 % (11.5-14.5); RDW Standard Deviation 50.9 fL (36.4-46.3); Red Blood Count 3.66 M/uL (4.7-6.1); White Blood Count 24.44 K/uL (4.8-10.8)
[2021-09-11 07:14] LABS: BUN Creatinine Ratio 18.8 (10-20); Calcium 7.8 mg/dl (8.5-10.1); Creatinine Clr Calc Pharmacy 103.9 ml/min; Est GFR (Non-African American) 99.2 ml/min; Magnesium 2.1 mg/dl (1.7-2.4); Phosphorus 1.8 mg/dl (2.5-4.9); Potassium 3.4 mmol/L (3.5-5.1)
[2021-09-11] MEDS: ATORVASTATIN 40 MG TAB PO SCH (08:50)
[2021-09-11] MEDS: ACETAMINOPHEN 1,000 MG/100 ML VIAL IV PRN (08:50)
[2021-09-11] MEDS: FLUoxetine HCL 20 MG CAP PO SCH (08:50)
[2021-09-11] MEDS: CEROVITE ADV FORMULA TAB PO SCH (08:50)
[2021-09-11] MEDS ORDERED: POTASSIUM CHLORIDE CRTAB 20 MEQ TABCR PO STA ×2 (08:51→13:20)
--- NOTE | 2021-09-11 09:17 | Gastroenterology Progress Note ---
Date of Service September 11, 2021 Assessment & Plan (1) Duodenal ulcer: Plan: Duodenal ulcer: Status post EGD which GI bleeding from duodenal ulcers. Recommended completion of 72 hours of Protonix drip and then twice daily. Patient tolerating clears but continues to have some upper abdominal pain. Continue clears at this time. Strict avoidance of NSAIDs is recommended moving forward. Would recommend holding Plavix for 7 days total from EGD. We will follow-up with patient in the office at discharge as he will likely require repeat EGD in about 6 to 8 weeks. Upper abdominal pain: Patient continues to have epigastric and right upper quadrant abdominal pain at rest and on exam. he does report some improvement after bowel movement this morning. CT angiogram of the abdomen pelvis after demonstrated no evidence of ischemic changes. Case reviewed with DR. Mcmahon. Please refer to supervising physician addendum for further recommendations. I have spent 30 minutes of discrete time performing the activities of this visit which include but are not limited to review of the medical record, obtaining a history, physical exam, and entering information in the electronic record. (2) Acute blood loss anemia: Admission and Anticipated Discharge Date Admission Date: September 08, 2021 Supervising Physician Co-Signing Physician Notes I have seen and examined the patient. I agree with note above by DARNELL Lozano except as noted below. HPI Pt states abd pain somewhat better today. Discussed with pts and he fell at home and not from a height so not enough trauma to cause duodenal issues. Also she showed the [employer] portal for her an dhe had studies done spring 2020 EGD antral erosions but nl duodenum, CT a/p no evidence of duodenal problem and WBC 11.54. He had Cdiff not sure exact timeframe and also AAA repair with endovascular repair. PE Abdomen pos bs, soft, no guarding nor rebound A/P duodenal ulcer maybe this is from NSAID but still wonder about small vessel ischemia. Continue supportive care for now and outpt EGD as above. WBC elevation---this is new, no fever but this elevation is worrisome, hematologic issue in the differential. hx of Cdiff--no evidence of diarrhea at present As the supervising physician, I , Kayden Mcmahon MD have spent 25 minutes of discrete time performing the activities of this visit which include but not limited to review of the medical records, obtaining a history, physical exam and entering information in the electronic record. DARNELL Lozano has reported spending 30 minutes of discrete time with the activities of this visit. Subjective Patient is a pleasant 71-year-old male who has a past medical history of CVA, AAA status post surgery, COPD, HTN, HLD, DM2, chronic anemia with baseline hgb 12 who presented with vomiting, abdominal pain and coffee-ground emesis, and syncope. 09/09/2021: EGD notes are reviewed performed by Dr. Plata due to anemia and coffee-ground emesis with abnormal CT of the GI tract which demonstrated the examined esophagus was normal. There was hematin found in the gastric fundus which was suctioned and the stomach was otherwise normal. There were many nonbleeding cratered duodenal ulcers, 1 with a visible vessel found in the first portion of the duodenum and in the second portion of the duodenum. The area was successfully injected with 3 mL of a 1:10,000 solution of epinephrine for hemostasis. There were also 2 hemostatic clip successfully placed. No bleeding at the end of procedure. There was diffuse mild mucosal changes characterized by discoloration found in the second/third portion of the duodenum. There were biopsies obtained for histology. Recommend avoiding NSAIDs completely and holding Plavix for 7 days if possible. Also recommend completing 72 hours of Protonix drip and then continue twice daily On exam/interview today, the patient reports overall he is doing okay. He was reporting some abdominal pain to the nursing staff but reports this is improved after a bowel movement this morning. Nursing reports that the patient had a large dark brown solid formed bowel movement with just a small amount of liquid pink/orange discoloration surrounding the stool. Patient reports some epigastric abdominal pain. Denies nausea or vomiting or reflux symptoms. He tolerated clear liquids per the nursing report. He would very much like to be advanced to full liquids if possible. He is a former smoker. Denies alcohol intake. Denies recreational drug use. He is retired. He is and lives at home with his . He does have a children. Review of Systems Review of Systems: All systems reviewed & are unremarkable except as noted in Subjective Physical Exam Constitutional: WD/WN, vitals as above Respiratory: normal respiratory effort, lungs clear to auscultation Cardiovascular: RRR, no murmur, no edema Gastrointestinal (Abdomen): Inspection/Auscultation: normal bowel sounds Percussion/Palpation: + abdomen tender (RUQ and epigastric pain) and abdomen soft; no splenomegaly Psychiatric: A+Ox3, euthymic affect Results & Data ([facility]) Vital Signs (Past 12 Hours) Vital Signs Temp Pulse Pulse Resp BP BP Pulse Ox 09/11/21 06:40 36.4 C L 79 18 174/75 H 97 09/11/21 04:58 74 160/70 H 09/11/21 03:08 36.8 C 74 18 177/78 H 96 09/10/21 22:32 36.7 C 87 18 158/71 H 94 09/10/21 21:33 Pulse Ox 09/11/21 06:40 09/11/21 04:58 09/11/21 03:08 09/10/21 22:32 09/10/21 21:33 98 Laboratory Results Laboratory Results - last 24 hr 09/08/21 09/10/21 09/10/21 17:12 06:04 11:52 WBC RBC Hgb Hct MCV MCH MCHC RDW Std Deviation RDW Coeff of Harjeet Plt Count MPV Sodium Potassium Chloride Carbon Dioxide Anion Gap BUN Creatinine Est Cr Clr Drug Dosing Est GFR ( Amer) Est GFR (Non-Af Amer) BUN/Creatinine Ratio Glucose POC Glucose 91 Calcium Phosphorus Magnesium Blood Type A Positive Blood Type Recheck A Positive Antibody Screen NEGATIVE Crossmatch See Detail 09/10/21 09/10/21 09/10/21 14:44 16:33 20:31 WBC RBC Hgb 9.5 L Hct 29.0 L MCV MCH MCHC RDW Std Deviation RDW Coeff of Harjeet Plt Count MPV Sodium Potassium Chloride Carbon Dioxide Anion Gap BUN Creatinine Est Cr Clr Drug Dosing Est GFR ( Amer) Est GFR (Non-Af Amer) BUN/Creatinine Ratio Glucose POC Glucose 158 H 105 H Calcium Phosphorus Magnesium Blood Type Blood Type Recheck Antibody Screen Crossmatch 09/11/21 09/11/21 09/11/21 06:29 06:29 07:50 WBC 24.44 H RBC 3.66 L Hgb 9.3 L Hct 28.3 L MCV 77.3 L MCH 25.4 MCHC 32.9 RDW Std Deviation 50.9 H RDW Coeff of Harjeet 17.9 H Plt Count 260 MPV 9.2 Sodium 133 L Potassium 3.4 L Chloride 103 Carbon Dioxide 25 Anion Gap 5 BUN 12 Creatinine 0.64 Est Cr Clr Drug Dosing 103.9 Est GFR ( Amer) 115.0 Est GFR (Non-Af Amer) 99.2 BUN/Creatinine Ratio 18.8 Glucose 85 POC Glucose 72 Calcium 7.8 L Phosphorus 1.8 L Magnesium 2.1 Blood Type Blood Type Recheck Antibody Screen Crossmatch Diagnostic Findings Abdomen/Pelvis CT 09/08/21 16:48 CT SCAN OF THE ABDOMEN AND PELVIS WITHOUT IV CONTRAST CLINICAL HISTORY: Syncope. Fall. Upper abdominal pain. Vomiting. COMPARISON STUDY: Abdominal CT dated 12/19/2010. TECHNIQUE: CT scan of the abdomen and pelvis is performed from the lung bases to the proximal femora. Images are reviewed in the axial, sagittal, and coronal planes. IV contrast was not administered for this examination. Note that the examination was performed in suboptimal fashion without oral and IV contrast. A dose lowering technique was utilized adhering to the principles of ALARA. CT DOSE: 352.97 mGy.cm FINDINGS: Lung bases: The heart is normal in size and without pericardial effusion. The coronary arteries are densely calcified. Emphysematous change is noted. There is bibasilar scarring/atelectasis. No airspace consolidation or pleural effusion is identified. A calcified granuloma is seen at the left lung base. The distal esophagus is filled with fluid. Liver: The unenhanced liver is normal in size, contour, and attenuation. There is no intrahepatic biliary ductal dilatation. Gallbladder: Unremarkable. Spleen: Normal in size and attenuation. Pancreas: The unenhanced pancreas is moderately atrophic and grossly un remarkable. Adrenal glands: Unremarkable. Kidneys: The unenhanced kidneys demonstrate cortical atrophy and are without hydronephrosis. There are no renal calculi identified. There is no evidence of contour deforming renal mass lesion. Abdominal vasculature: There is advanced atherosclerotic calcification of the abdominal aorta noting an aortobiiliac stent graft in place. There is no significant residual aneurysm sac. Stomach and bowel: The stomach is markedly distended and filled with fluid. The duodenum is distended measuring up to 5.4 cm in diameter, and there are surrounding inflammation. There is hyperdense material seen involving the second and third portions of the duodenum suspicious for a large duodenal hematoma. This likely causes gastric outlet obstruction. There is moderate constipation. No bowel obstruction is identified. There is mild to moderate colonic diverticulosis without CT evidence of acute diverticulitis. The appendix is well-visualized and normal. Peritoneum: There is no intraperitoneal free air or abdominal ascites. Lymphadenopathy: None. Pelvic viscera: Evaluation of the pelvis is degraded by streak artifact from bilateral hip arthroplasties. The prostate gland is enlarged and heterogeneous, but not well visualized due to significant streak artifact. The bladder is distended and normal as imaged. Skeletal structures: The skeletal structures are osteopenic. No lytic or blastic lesions are seen. Bilateral hip arthroplasties are in place. Spondylotic and postoperative change is noted in the thoracolumbar spine. IMPRESSION: 1. The duodenum is expanded and filled with hyperdense material. This likely represents a large duodenal hematoma and there is associated gastric outlet obstruction. 2. Mild inflammatory change is seen around the duodenum. No intraperitoneal free air is identified and there is no abdominal ascites. 3. Colonic diverticulosis without CT evidence of acute diverticulitis. 4. Additional findings as above. ACT 112: Negative or not required by law. Electronically signed by: Gatito Nuno M.D. 09/08/2021 6:[address] 09/08/21 16:48 CT SCAN OF THE BRAIN WITHOUT IV CONTRAST CLINICAL HISTORY: Fall. Syncope. COMPARISON STUDY: CT of the brain dated 05/25/2015. TECHNIQUE: Unenhanced axial CT scan of the brain is performed from the vertex to the skull base. A dose lowering technique was utilized adhering to the principles of ALARA. CT DOSE: 786.26 mGy.cm FINDINGS: Brain parenchyma: There are age-related involutional changes noting moderate pa tchy subcortical and periventricular microangiopathic change. There is no hemorrhage, mass effect, or evidence of acute territorial ischemia by CT criteria. Ha-white matter differentiation is preserved. No extra-axial fluid collection is seen. Ventricles, sulci, cisterns: Prominent secondary to involutional change. Intracranial vasculature: There is atherosclerotic calcification of the stuart nous carotid arteries. Calvarium: The skeletal structures are osteopenic. No depressed calvarial fracture is identified. Sinuses and mastoids: The visualized paranasal sinuses are clear. The mastoid air cells are well pneumatized. Orbits: The bony orbits are grossly intact. IMPRESSION: There is no hemorrhage, mass effect, or evidence of acute territorial ischemia by CT criteria. ACT 112: Negative or not required by law. Electronically signed by: Gatito Nuno M.D. 09/08/2021 5:38 PM Chest X-Ray 09/08/21 16:49 SINGLE VIEW CHEST CLINICAL HISTORY: Generalized weakness. FINDINGS: 2 AP, portable, upright chest radiographs are compared to study dated 05/24/2015. The heart is mildly enlarged noting atherosclerotic calcification of the thoracic aorta. The pulmonary vasculature is noncongested. Mild atelectasis is noted at the lung bases. A calcified granuloma is noted at the left lung base. The lungs and pleural spaces are otherwise clear. No pneumothorax is seen. The skeletal structures are osteopenic. The bony thorax is grossly intact. A right shoulder arthroplasty is in place. Advanced arthritic change is noted in the left shoulder. Fusion hardware is partially visualized in the lumbar spine. IMPRESSION: No active disease in the chest. ACT 112: Negative or not required by law. Electronically signed by: Gatito Nuno M.D. 09/08/2021 5:05 PM KUB X-Ray 09/08/21 19:23 KUB CLINICAL HISTORY: Enteric tube placement. FINDINGS: An AP, portable, upright view of the lower chest and upper abdomen is correlated with abdominal CT dated 09/08/2021. An enteric tube has been placed. The tip projects below the diaphragm over the proximal stomach. There is no radiographic evidence of bowel obstruction in the upper abdomen. No evidence of intraperitoneal free air is identified. The lung bases are clear as imaged. Fusion hardware is noted in the spine. IMPRESSION: Enteric tube placement as above. Electronically signed by: Gatito Nuno M.D. 09/08/2021 8:15 PM Abdomen/Pelvis CTA 09/09/21 12:10 CT angio abdomen pelvis w con CLINICAL HISTORY: concern for bowel ischemia TECHNIQUE: Multidetector row helical CT of the abdomen and pelvis was performed, following intravenous administration of iodinated contrast. No oral contrast was administered. Automated dose lowering techniques and/or adjustment according to patient size were utilized for this exam. Coronal and sagittal reformations were obtained. MIP and 3D volume rendered reconstructions were obtained. Comparison: Comparison is made to CT abdomen pelvis 09/08/2021 FINDINGS: Lower chest: Atelectatic changes are seen. A few foci of emphysema are seen. Liver: Unremarkable. No focal lesions are seen. Gallbladder and biliary tree: No calcified gallstones. Normal caliber wall. No intra- or extrahepatic biliary ductal dilation. Pancreas: Unremarkable, no focal lesions. Spleen: Unremarkable. Adrenals: Unremarkable. Kidneys and ureters: Unremarkable. Bladder: Unremarkable. Reproductive organs: Unremarkable. Bowel: Diverticulosis is seen without evidence of diverticulitis. The appendix is normal. Lymph nodes Retroperitoneal: Unremarkable. Mesenteric: Unremarkable. Pelvic: Unremarkable. Peritoneum: Normal. Abdominal wall: Unremarkable. Bones: Degenerative changes in the visualized spine. Posterior fixation hardware is seen spanning L1-L3. CT angiogram: Aortobiiliac stent is seen. No significant atherosclerosis is seen. The origins of the celiac axis, superior mesenteric, and bilateral renal arteries are patent. IMPRESSION: 1. Status post aortobiiliac stent. The great vessel origins are patent. 2. Diverticulosis without evidence of diverticulitis. No definite ischemic changes. ACT 112: Negative or not required by law. Electronically signed by: Neno Newby M.D. 09/09/2021 2:39 PM
[2021-09-11] MEDS: SODIUM CHLORIDE 0.9% 1000ML 1,000 ML IV SCH (09:19)
[2021-09-11] MEDS: INSULIN ASPART PER UNIT SC SCH ×4 (09:27→21:22)
[2021-09-11] MEDS: PROPRANOLOL HCL LA 80 MG CAPCR PO SCH (10:37)
[2021-09-11] MEDS: POT PHOSPHATE MONOBASIC W/ SOD TAB PO SCH ×4 (10:38→21:12)
--- NOTE | 2021-09-11 12:20 | Hospitalist Progress Note ---
Date of Service September 11, 2021 Assessment & Plan (1) Acute blood loss anemia: Plan: per Dr. Berkowitz's notes with addendum: s/p 1 unit pRBC 09/09 s/p 1 unit pRBC 09/10. Repeat H/H at 3pm. Transfuse if Hb<8 09/11 Hg stable at 9.3 no signs of recurrent bleeding monitor (2) Duodenal ulcer: Plan: continue protonix drip CTA abd/pelvis requested by GI to evaluate for mesenteric ischemia was negative lactate elevated due to dehydration and active bleed Advance to clears 09/11 pathology report from EGD: FINAL DIAGNOSIS Duodenum, random, biopsy: - Duodenal mucosa with no diagnostic abnormality - Negative for histologic features of sprue - Negative for parasites - Negative for dysplasia and malignancy continue protonix drip til 7pm, then change to IV BID on clear liquid diet- advance per GI no signs of recurrence Low K and Mg - replacement ongoing Plan: History of CVA -hold aspirin and plavix. 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 He does NOT have any cardiac stents Depression Mood disorder -continue home medications NIDDM -hold metformin, corrective scale insulin for now DVT ppx SCDs plan of care discussed with patient in detail and at length all questions answered he is understanding, agreeable, comfortable with the plan of care Admission and Anticipated Discharge Date Admission Date: September 08, 2021 Subjective ff up for GI bleed, etc seen resting in bed, comfortable states he feels fine overall had mild epigastric pain this morning, resolved now tolerating clears well had dark brown stools this AM no chest pain, dyspnea, palpitations, dizziness no other symptoms Review of Systems Review of Systems: all noted and negative except for above Physical Exam Physical Exam: General- oriented x 3, not in distress, speaks in sentences with no effort or accessory muscle use Eyes- anicteric Neck- no JVD Lungs- clear breath sounds bilaterally, no rales/wheezes Heart- normal rate, regular rhythm; no murmurs Abdomen- normal bowel sounds, nondistended, soft, nontender Extremities- no pretibial edema, no calf tenderness Neuro- alert, oriented x 3; no gross focal neurologic deficits Skin- warm & dry Results & Data Results & Data ([facility]) Vital Signs (Past 12 Hours) Vital Signs Temp Pulse Pulse Pulse Resp BP Pulse Ox 09/11/21 11:31 36.9 C 82 20 174/78 H 96 09/11/21 06:40 36.4 C L 79 18 174/75 H 97 09/11/21 06:15 82 09/11/21 04:58 74 160/70 H 09/11/21 03:08 36.8 C 74 18 177/78 H 96 all noted and reviewed including below
[2021-09-11] MEDS: MoRPHine SULFATE 2 MG/ML CARP IV PRN ×2 (16:39→22:22)
[2021-09-11] MEDS ORDERED: ALUMINUM/MAGNESIUM SUSP 30 ML UDC PO STA (17:06)
[2021-09-11] MEDS: AMITRIPTYLINE HCL 10 MG TAB PO SCH (21:12)
[2021-09-12] MEDS: PANTOprazole 40 MG in DEXTROSE 5% 100 ML IV SCH ×2 (02:13→07:22)
[2021-09-12] MEDS: SODIUM CHLORIDE 0.9% 1000ML 1,000 ML IV SCH (05:38)
[2021-09-12 07:29] LABS: Hematocrit (blood only) 28.7 % (42-52); Hemoglobin 9.4 g/dL (14.0-18.0); Mean Corpuscular Hemoglobin 25.2 pg (25-34); Mean Corpuscular Hgb Conc 32.8 g/dL (32-36); Mean Corpuscular Volume 76.9 fL (80-100); Mean Platelet Volume 9.8 fL (7.4-10.4); Platelet Count 367 K/uL (130-400); RDW Coefficient of Variation 18.4 % (11.5-14.5); RDW Standard Deviation 51.4 fL (36.4-46.3); Red Blood Count 3.73 M/uL (4.7-6.1); White Blood Count 24.44 K/uL (4.8-10.8)
[2021-09-12 07:50] LABS: Troponin I High Sensitivity 31.6 pg/ml (0-20)
[2021-09-12 08:03] LABS: Calcium 7.8 mg/dl (8.5-10.1); Creatinine Clr Calc Pharmacy 112.7 ml/min; Est GFR (African American) 118.9 ml/min; Est GFR (Non-African American) 102.6 ml/min; Potassium 3.7 mmol/L (3.5-5.1)
[2021-09-12] MEDS: POT PHOSPHATE MONOBASIC W/ SOD TAB PO SCH ×4 (08:41→20:29)
[2021-09-12] MEDS: PROPRANOLOL HCL LA 80 MG CAPCR PO SCH (08:41)
[2021-09-12] MEDS: INSULIN ASPART PER UNIT SC SCH ×4 (08:41→20:28)
[2021-09-12] MEDS: CEROVITE ADV FORMULA TAB PO SCH (08:41)
[2021-09-12] MEDS: PANTOprazole 40 MG in SYRINGE 0 ML IV SCH ×2 (08:41→20:28)
[2021-09-12] MEDS: FLUoxetine HCL 20 MG CAP PO SCH (08:41)
[2021-09-12 08:42] LABS: Magnesium 2.2 mg/dl (1.7-2.4)
[2021-09-12] MEDS: ATORVASTATIN 40 MG TAB PO SCH (08:42)
[2021-09-12] MEDS: MoRPHine SULFATE 2 MG/ML CARP IV PRN (08:46)
--- NOTE | 2021-09-12 08:53 | Gastroenterology Progress Note ---
Date of Service September 12, 2021 Assessment & Plan (1) Duodenal ulcer: Plan: Duodenal ulcer: Status post EGD which GI bleeding from duodenal ulcers. Possibly from NSAID but still wonder about small vessel ischemia. Recommended completion of 72 hours of Protonix drip and then twice daily. Patient tolerating clears but continues to have some upper abdominal pain. Strict avoidance of NSAIDs is recommended moving forward. Would recommend holding Plavix for 7 days total from EGD. We will follow-up with patient in the office at discharge as he will likely require repeat EGD in about 6 to 8 weeks. Upper abdominal pain: Patient continues to have epigastric and right upper quadrant abdominal pain at rest and on exam. CT angiogram of the abdomen pelvis after demonstrated no evidence of ischemic changes. Consult placed for surgery to evaluate due to severity of pain and history WBC elevation: this is new, no fever but this elevation is worrisome, hematologic issue in the differential. discussed with covering hospitalist - recommend consideration of hematology consult hx of Cdiff--no evidence of diarrhea at present Case reviewed with Dr. Mcmahon. Please refer to supervising physician addendum for further recommendations. I have spent 20 minutes of discrete time performing the activities of this visit which include but are not limited to review of the medical record, obtaining a history, physical exam, and entering information in the electronic record. (2) Acute blood loss anemia: Admission and Anticipated Discharge Date Admission Date: September 08, 2021 Supervising Physician Co-Signing Physician Notes I have seen and examined the patient. I agree with note above by DARNELL Lozano except as noted below. HPI with patient for H and P. Pt states abd pain about the same today. Surgery does not feel any surgical issues. CT chest shows pneumonia and possible pancreaitis with LFTs and lipase pending. PE Abdomen pos bs,soft, no guarding nor rebound. A/P abd pain from duodenal ulcer and possible pancretitisa possible pancretisi on CT--check LFTs and lipase when back elevated WBC--could be explained by pneumonia currently being treated with cefepime per hospitalist. As the supervising physician, I , Kayden Mcmahon MD have spent 10 minutes of discrete time performing the activities of this visit which include but not limited to review of the medical records, obtaining a history, physical exam and entering information in the electronic record. Joy Kalee, [employer] has reported spending 20 minutes of discrete time with the activities of this visit. Subjective The patient is sitting upright in bed with breakfast tray in front of him. He states he feels a little better. He is a full liquid diet in front of him. He has only eaten a little so far this morning. He reports he is having continued epigastric and right upper quadrant abdominal pain. He currently rates as an 8 out of 10. He is also nursing staff to medicate him for his discomfort. He denies any nausea or vomiting. Last bowel movement was yesterday as noted in my note. He reports he is passing some gas. Pertinent history: spring 2020 EGD antral erosions but nl duodenum, CT a/p no evidence of duodenal problem and WBC 11.54. He had Cdiff not sure exact timeframe and also AAA repair with endovascular repair. Review of Systems Review of Systems: All systems reviewed & are unremarkable except as noted in Subjective Physical Exam Constitutional: WD/WN, vitals as above Respiratory: normal respiratory effort, lungs clear to auscultation Cardiovascular: RRR, no murmur, no edema Gastrointestinal (Abdomen): Inspection/Auscultation: normal bowel sounds Percussion/Palpation: + abdomen tender (RUQ and epigastric pain) and abdomen soft; no splenomegaly Psychiatric: A+Ox3, euthymic affect Results & Data ([facility]) Vital Signs (Past 12 Hours) Vital Signs Temp Pulse Pulse Resp BP Pulse Ox 09/12/21 07:45 36.6 C 72 20 170/73 H 97 09/12/21 03:00 36.7 C 75 20 171/84 H 96 09/11/21 22:46 36.8 C 71 20 162/80 H 92 09/11/21 22:20 75 Laboratory Results Laboratory Results - last 24 hr 09/11/21 09/11/21 09/11/21 12:01 17:03 17:17 WBC RBC Hgb Hct MCV MCH MCHC RDW Std Deviation RDW Coeff of Harjeet Plt Count MPV Sodium Potassium Chloride Carbon Dioxide Anion Gap BUN Creatinine Est Cr Clr Drug Dosing Est GFR ( Amer) Est GFR (Non-Af Amer) BUN/Creatinine Ratio Glucose POC Glucose 109 H 93 Calcium Phosphorus Magnesium Troponin I High Sens 36.3 H 09/11/21 09/11/21 09/12/21 20:07 22:37 06:37 WBC RBC Hgb Hct MCV MCH MCHC RDW Std Deviation RDW Coeff of Harjeet Plt Count MPV Sodium 133 L Potassium 3.7 Chloride 102 Carbon Dioxide 24 Anion Gap 7 BUN 13 Creatinine 0.59 L Est Cr Clr Drug Dosing 112.7 Est GFR ( Amer) 118.9 Est GFR (Non-Af Amer) 102.6 BUN/Creatinine Ratio 22.0 H Glucose 65 L POC Glucose 216 H Calcium 7.8 L Phosphorus Magnesium Troponin I High Sens 34.6 H 31.6 H 09/12/21 09/12/21 09/12/21 06:37 06:37 07:35 WBC 24.44 H RBC 3.73 L Hgb 9.4 L Hct 28.7 L MCV 76.9 L MCH 25.2 MCHC 32.8 RDW Std Deviation 51.4 H RDW Coeff of Harjeet 18.4 H Plt Count 367 MPV 9.8 Sodium Potassium Chloride Carbon Dioxide Anion Gap BUN Creatinine Est Cr Clr Drug Dosing Est GFR ( Amer) Est GFR (Non-Af Amer) BUN/Creatinine Ratio Glucose POC Glucose 61 L* Calcium Phosphorus 2.0 L Magnesium 2.2 Troponin I High Sens 09/12/21 07:37 WBC RBC Hgb Hct MCV MCH MCHC RDW Std Deviation RDW Coeff of Harjeet Plt Count MPV Sodium Potassium Chloride Carbon Dioxide Anion Gap BUN Creatinine Est Cr Clr Drug Dosing Est GFR ( Amer) Est GFR (Non-Af Amer) BUN/Creatinine Ratio Glucose POC Glucose 71 Calcium Phosphorus Magnesium Troponin I High Sens
[2021-09-12 11:00] LABS: Appearance Urine Clear (Clear); Bilirubin Urine Negative (Negative); Blood Urine Trace-intact (Negative); Color Urine Yellow; Glucose Urine UA Negative (Negative); Ketones Urine 2+ (Negative); Leukocyte Esterase Urine Negative (Negative); Nitrite Urine Negative (Negative); Protein Urine 2+ (Negative); Specific Gravity Urine 1.025 (1.000-1.030); Urobilinogen Urine Negative (Negative)
--- NOTE | 2021-09-12 11:00 | Surgery Consultation ---
Date of Consultation September 12, 2021 Assessment & Plan (1) Abdominal pain: Etiology of his elevated white blood cell count is unknown to me It does not appear the patient has significant bowel ischemia I do not think he has significant acute cholecystitis ID consult could be considered for other thoughts/studies It does not appear the patient has colitis or diverticulitis He certainly appears to be deconditioned and very weak Would advance his diet as tolerated History of Present Illness Attending Physician: Chema Retana MD History of Present Illness 71-year-old male admitted to the emergency room with multiple syncopal-like episodes Found with evidence of GI bleeding and on endoscopy multiple duodenal ulcers involving the first and second portions of the duodenum He has had history of taking Plavix in the past which is on hold He had a CT angiogram showing no significant major vessel occlusive disease 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 His white blood cell count has been elevated over 20,000 since admission- etiology of which is unknown History of diverticulosis on his CAT scan Allergies Allergy/AdvReac Type Severity Reaction Status Date / Time tetracycline Allergy Mild RASH Verified 09/09/21 10:19 Home Medications Medication Instructions Recorded Confirmed Type albuterol sulfate 90 mcg/actuation 2 puff INHALATION Q4 PRN 09/08/21 09/08/21 History aerosol inhaler amitriptyline 10 mg tablet 10 mg PO HS 09/08/21 09/08/21 History aspirin 325 mg tablet 325 mg PO DAILY 09/08/21 09/08/21 History atorvastatin 40 mg tablet 40 mg PO DAILY 09/08/21 09/08/21 History bupropion HCl 150 mg 24 hr tablet, 150 mg PO DAILY 09/08/21 09/08/21 History extended release calcium carbonate 500 mg calcium 500 mg PO TID 09/08/21 09/08/21 History (1,250 mg) chewable tablet clopidogrel 75 mg tablet 75 mg PO QAM 09/08/21 09/08/21 History fluoxetine 20 mg capsule 20 mg PO DAILY 09/08/21 09/08/21 History fluoxetine 40 mg capsule 40 mg PO DAILY 09/08/21 09/08/21 History lorazepam 1 mg tablet 1 mg PO HS PRN 09/08/21 09/08/21 History meloxicam 15 mg tablet 15 mg PO DAILY 09/08/21 09/08/21 History metformin 500 mg tablet 500 mg PO BID 09/08/21 09/08/21 History ofjulfpn-ysm-yfyfy acid 0.4 1 tab PO DAILY 09/08/21 09/08/21 History mg-lycopene 300 mcg-lutein 250 mcg tablet (Centrum Silver) pantoprazole 40 mg tablet,delayed 40 mg PO DAILYBB 09/08/21 09/08/21 History release propranolol 160 mg capsule,24 160 mg PO DAILY 09/08/21 09/08/21 History hr,extended release rizatriptan 10 mg tablet 10 mg PO UD PRN 09/08/21 09/08/21 History tramadol 50 mg tablet 50 mg PO Q6 PRN 09/08/21 09/08/21 History Patient History Medical History (Updated 09/12/21 @ 10:59 by Jean Umana MD, FACS) Abdominal pain, acute, epigastric Acute upper GI bleed Depression Diabetes mellitus, type II DJD (degenerative joint disease) DJD (degenerative joint disease), multiple sites Dyslipidemia Gastric outlet obstruction H/O asbestos exposure H/O migraine with aura H/O restrictive lung disease History of CVA (cerebrovascular accident) "05/2015", no residual deficit History of tobacco abuse HTN (hypertension) Nausea & vomiting Obstructive sleep apnea on CPAP Slurred speech Syncope and collapse Surgical History History of colonoscopy History of lumbar laminectomy "2000,2001,2004,2006" History of right hip replacement "01/2015" Social History Smoking Status: Former smoker Smoking End Date: Pt. was former 1 PPD smoker/quit 8 years ago; Second Hand Exposure: No; Tobacco Cessation Education Requested by Patient: No Hx Alcohol Use: No Hx Substance Use: No Preferred Language: Moroccan Communication Ability: Impaired Fiscal Accountant Required: No Beliefs That Will Affect Care: None Current Living Situation: Spouse Current Living Situation Comment: Lives w/ Other Information That Helps Us Care for You: No Feels Safe at Home: Yes Safety Concerns: Feels Safe At This Time Assistive Devices: Cane and Glasses Assistive Devices Comment: Pt. states he uses cane at home Review of Systems Review of Systems: All systems reviewed & are unremarkable except as noted in HPI & below Physical Exam Physical Exam: Patient is partially trying to get out of bed and appears to be very weak He is a major 2 person assist Appears very frail for his age of 71 years Not complaining of abdominal pain at the present time Constitutional: + thin; + not well nourished and no acute distress Eyes: + anicteric sclerae Respiratory: normal respiratory effort; no respiratory distress Cardiovascular: Rate/Rhythm: regular rate Gastrointestinal (Abdomen): Inspection/Auscultation: abdomen normal to inspection and normal bowel sounds; abdomen not distended Patient's abdomen is flat soft and has no significant tenderness and no peritoneal irritation Has no right upper quadrant tenderness Says his pain is mid upper epigastrium Musculoskeletal: Head/Neck/Chest: head atraumatic Skin: Mild mottling in his legs Neurologic: awake Psychiatric: Orientation: alert Results & Data ([facility]) Vital Signs (Past 12 Hours) Vital Signs Temp Pulse Pulse Resp BP Pulse Ox 09/12/21 09:33 66 09/12/21 07:45 36.6 C 72 20 170/73 H 97 09/12/21 03:00 36.7 C 75 20 171/84 H 96 Laboratory Results I reviewed his laboratory studies Diagnostic Findings I reviewed his CAT scans and films and report PG Care Time/CCT Total # of Minutes Spent Total Time Spent with Patient: Total time spent is greater than 50% in coordination of care (as documented) at patient's floor/unit and/or counseling patient: Coding Level of Care Code 74135 Initial Inpt Care Lvl 3 Diagnoses Abdominal pain R10.9
--- NOTE | 2021-09-12 11:02 | XRay Report ---
XR chest 1V portable HISTORY: 71 years-old Male r/o pneumonia acute shortness of breath COMPARISON: CTA abdomen and pelvis 09/09/2021, chest radiograph 09/08/2021 TECHNIQUE: Portable AP view of the chest FINDINGS: The cardiac silhouette is enlarged. No pneumothorax or overt pulmonary edema. There are suggested tra ce pleural effusions. Mild persistent consolidation of the left lung base, similar to before 2021 study. Degenerative changes of the shoulders and spine with partially imaged lumbar spinal fusion derrick dware. Right shoulder arthroplasty. IMPRESSION: 1. Cardiomegaly without pulmonary edema. 2. Trace pleural effusions with persistent left basilar opacities suggestive of atelectasis versus pn eumonia. ACT 112: Negative or not required by law. The above report was generated using voice recognition software. It may contain grammatical, syntax o r spelling errors. Electronically signed by: Uli Whitman M.D. 09/12/2021 11:00 AM
[2021-09-12 11:29] LABS: Bacteria Urine Negative (Negative); Mucus Urine Present (None Prsent); RBC Urine 0-4 /hpf (0-4); WBC Urine 0-5 /hpf (0-5)
[2021-09-12] MEDS ORDERED: ACETAMINOPHEN 1,000 MG/100 ML VIAL IV PRN (12:50)
[2021-09-12] MEDS ORDERED: ALUMINUM/MAGNESIUM SUSP 30 ML UDC PO PRN (13:00)
--- NOTE | 2021-09-12 13:52 | CT Scan Report ---
CT chest diagnostic wo con CLINICAL HISTORY: Shortness of breath. Evaluate for possible pneumonia. COMPARISON STUDY: Portable chest from 09/12/2021 and CTA of the abdomen from 09/09/2021 which included the lung bases CT DOSE: 341.90 mGy.cm TECHNIQUE: Standard CT of the Chest was performed without IV contrast. A dose lowering technique was utilized adhering to the principles of ALARA. FINDINGS: Airway: The airway is clear. No endobronchial lesion is identified. Lungs and pleura: There is a small left pleural effusion. Alveolar opacity is present in the left kaiden g base as well with air bronchograms present. The findings are characteristic of early pneumonia. The remainder of the lungs are clear of acute alveolar opacities, air bronchograms or pulmonary nodules. Mediastinum: There is no evidence for pathologic adenopathy on these limited noncontrast images. The heart is mildly enlarged. There is coronary artery calcification present. The thoracic aorta is withi n normal limits. There is no evidence for pericardial effusion. Upper abdomen: Compared to the CTA of the abdomen, there are now mild edematous changes present invol ving the pancreas and peripancreatic fat. The presence of early acute pancreatitis cannot be excluded . Osseous structures: There is no acute osseous pathology. IMPRESSION: 1. Alveolar opacity at the left lung base with air bronchograms characteristic of early pneumonia. 2. There is associated small left pleural effusion. 3. Interval development of edematous changes of the pancreas and peripancreatic fat suspicious for ea rly acute pancreatitis. ACT 112: Negative or not required by law. Electronically signed by: Ilan Hayes M.D. 09/12/2021 1:50 PM
[2021-09-12] MEDS ORDERED: CONSULT PHARMACY STA (14:09)
--- NOTE | 2021-09-12 14:19 | Hospitalist Progress Note ---
Date of Service September 12, 2021 Assessment & Plan (1) Acute blood loss anemia: Plan: per Dr. Berkowitz's notes with addendum: s/p 1 unit pRBC 09/09 s/p 1 unit pRBC 09/10. Repeat H/H at 3pm. Transfuse if Hb<8 09/12 Hg stable at ~9 for 2 days now no signs of recurrent bleeding monitor (2) Duodenal ulcer: Plan: continue protonix drip CTA abd/pelvis requested by GI to evaluate for mesenteric ischemia was negative lactate elevated due to dehydration and active bleed Advance to clears 09/12 pathology report from EGD: FINAL DIAGNOSIS Duodenum, random, biopsy: - Duodenal mucosa with no diagnostic abnormality - Negative for histologic features of sprue - Negative for parasites - Negative for dysplasia and malignancy still having epigastric pain transitioned to Protonix 40mg IV BID add Sucralfate Tylenol QID, Maalox PRN CT chest showin. Alveolar opacity at the left lung base with air bronchograms characteristic of early pneumonia. 2. There is associated small left pleural effusion. 3. Interval development of edematous changes of the pancreas and peripancreatic fat suspicious for early acute pancreatitis. Lipase , LFTs STAT ordered requested GI SVC for re eval today Persistent Leukocytosis, likely from PNA - CT chest: (+) L lower lobe pneumonia Cefepime + Doxycycline ordered - 2nd Blood culture: pending - Peripheral smear pending Low K and Mg - replacement ongoing Trace Blood in the Urine - repeat as outpatient Plan: History of CVA -hold aspirin and plavix. 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 He does NOT have any cardiac stents -- GI recommending to hold ASA and Plavix for at least 7 days Depression Mood disorder -continue home medications NIDDM -hold metformin, corrective scale insulin for now DVT ppx SCDs plan of care discussed with patient in detail and at length all questions answered he is understanding, agreeable, comfortable with the plan of care Admission and Anticipated Discharge Date Admission Date: September 08, 2021 Subjective ff up for GI bleed, etc seen resting in chair, not in distress appears somewhat weak but oriented, not in distress states he feels about the same still has epigastric pain- sharp, worse with food denies cough, sputum, fever/chills no urinary symptoms no melena/hematochezia no other symptoms Review of Systems Review of Systems: all noted and negative except for above Physical Exam Physical Exam: General- oriented x 3, not in distress, speaks in sentences with no effort or accessory muscle use Eyes- anicteric Neck- no JVD Lungs- clear breath sounds bilaterally, no rales/wheezes Heart- normal rate, regular rhythm; no murmurs Abdomen- normal bowel sounds, nondistended, soft, mild epigastric tenderness Extremities- no pretibial edema, no calf tenderness Neuro- alert, oriented x 3; no gross focal neurologic deficits Skin- warm & dry Results & Data Results & Data ([facility]) Vital Signs (Past 12 Hours) Vital Signs Temp Pulse Pulse Resp BP Pulse Ox 09/12/21 09:33 66 09/12/21 07:45 36.6 C 72 20 170/73 H 97 09/12/21 03:00 36.7 C 75 20 171/84 H 96 all noted and reviewed including below
[2021-09-12] MEDS: ACETAMINOPHEN 325 MG TAB PO SCH ×2 (14:32→20:28)
[2021-09-12] MEDS: DOXYCYCLINE HYCLATE 100 MG in DEXTROSE 5% 100 ML IV SCH (14:33)
[2021-09-12] MEDS: CEFEPIME 2,000 MG in SYRINGE 0 ML IV SCH ×2 (14:33→22:18)
[2021-09-12] MEDS: SUCRALFATE 1 GM/10 ML UDC PO SCH ×3 (14:33→20:30)
[2021-09-12] MEDS ORDERED: LORazepam 1 MG TAB PO PRN (16:59)
[2021-09-12] MEDS ORDERED: FLUoxetine HCL 20 MG CAP PO SCH (17:00)
[2021-09-12 17:04] LABS: Hematocrit (blood only) 27.7 % (42-52); Hemoglobin 9.1 g/dL (14.0-18.0); Mean Corpuscular Hemoglobin 25.3 pg (25-34); Mean Corpuscular Hgb Conc 32.9 g/dL (32-36); Mean Corpuscular Volume 77.2 fL (80-100); Mean Platelet Volume 9.4 fL (7.4-10.4); Platelet Count 373 K/uL (130-400); RDW Coefficient of Variation 18.4 % (11.5-14.5); RDW Standard Deviation 52.3 fL (36.4-46.3); Red Blood Count 3.59 M/uL (4.7-6.1); White Blood Count 22.58 K/uL (4.8-10.8)
[2021-09-12] MEDS: buPROPion XL 150 MG TABCR PO SCH (17:40)
[2021-09-12 17:41] LABS: Basophils # (auto) 0.01 K/uL (0-0.2); Eosinophils # (auto) 0.11 K/uL (0-0.5); Eosinophils % (auto) 0.5 %; Immature Granulocytes # (auto) 0.06 K/uL (0.00-0.02); Immature Granulocytes % (auto) 0.3 %; Lymphocytes # (auto) 1.87 K/uL (1.2-3.4); Lymphocytes % (auto) 8.3 %; Monocytes # (auto) 2.05 K/uL (0.11-0.59); Monocytes % (auto) 9.1 %; Neutrophils # (auto) 18.48 K/uL (1.4-6.5); Neutrophils % (auto) 81.8 %; Poikilocytosis Present; Polychromasia 1+
[2021-09-12 17:47] LABS: Calcium 7.7 mg/dl (8.5-10.1); Creatinine Clr Calc Pharmacy 92.4 ml/min; Est GFR (African American) 109.5 ml/min; Est GFR (Non-African American) 94.5 ml/min; Magnesium 2.2 mg/dl (1.7-2.4); Potassium 3.1 mmol/L (3.5-5.1)
[2021-09-12] MEDS ORDERED: POTASSIUM CHLORIDE CRTAB 20 MEQ TABCR PO STA (18:06)
[2021-09-12] MEDS: POTASSIUM CHLORIDE / WTR 10 MEQ/100 ML PLCT IV SCH ×4 (19:47→22:55)
[2021-09-12 20:25] LABS: Albumin Level 2.9 gm/dl (3.4-5.0); Bilirubin Direct 0.2 mg/dl (0-0.2); Bilirubin,Total 0.7 mg/dl (0.2-1.0); Total Protein 6.1 gm/dl (6.0-8.3)
[2021-09-12] MEDS: CALCIUM CARBONATE 500 MG CHEWABLE TAB PO SCH (20:29)
[2021-09-12] MEDS: AMITRIPTYLINE HCL 10 MG TAB PO SCH (20:29)
[2021-09-12 23:35] LABS: Bilirubin Direct 0.2 mg/dl (0-0.2); Bilirubin,Total 0.7 mg/dl (0.2-1.0); Total Protein 6.1 gm/dl (6.0-8.3)
[2021-09-13] MEDS: POTASSIUM CHLORIDE / WTR 10 MEQ/100 ML PLCT IV SCH
[2021-09-13] MEDS: ACETAMINOPHEN 325 MG TAB PO SCH ×4 (02:25→19:50)
[2021-09-13] MEDS: CEFEPIME 2,000 MG in SYRINGE 0 ML IV SCH ×3 (05:23→21:45)
--- NOTE | 2021-09-13 05:58 | Electrocardiogram Report ---
Test Reason : Blood Pressure : / mmHG Vent. Rate : 071 BPM Atrial Rate : 071 BPM P-R Int : 160 ms QRS Dur : 080 ms QT Int : 456 ms P-R-T Axes : 061 054 050 degrees QTc Int : 495 ms Normal sinus rhythm Possible Inferior infarct , age undetermined Prolonged QT Abnormal ECG When compared with ECG of 09-SEP-2021 04:46, Borderline criteria for Inferior infarct are now Present T wave amplitude has increased in Anterior leads Confirmed by David Mondragon ([id number]) on 09/13/2021 5:58:19 AM Referred By: REFERRED SELF Confirmed By:David Mondragon
[2021-09-13] MEDS: PANTOprazole 40 MG in SYRINGE 0 ML IV SCH (07:25)
[2021-09-13] MEDS: CEROVITE ADV FORMULA TAB PO SCH (07:26)
[2021-09-13] MEDS: PROPRANOLOL HCL LA 80 MG CAPCR PO SCH (07:26)
[2021-09-13] MEDS: CALCIUM CARBONATE 500 MG CHEWABLE TAB PO SCH ×3 (07:26→21:47)
[2021-09-13] MEDS: FLUoxetine HCL 20 MG CAP PO SCH (07:26)
[2021-09-13] MEDS: buPROPion XL 150 MG TABCR PO SCH (07:27)
[2021-09-13] MEDS: SUCRALFATE 1 GM/10 ML UDC PO SCH ×4 (07:27→21:47)
[2021-09-13] MEDS: POT PHOSPHATE MONOBASIC W/ SOD TAB PO SCH ×4 (07:27→21:47)
[2021-09-13] MEDS: ATORVASTATIN 40 MG TAB PO SCH (07:28)
[2021-09-13 07:36] LABS: Hematocrit (blood only) 26.6 % (42-52); Hemoglobin 8.5 g/dL (14.0-18.0); Mean Corpuscular Volume 78.2 fL (80-100); Mean Platelet Volume 9.8 fL (7.4-10.4); Platelet Count 392 K/uL (130-400); RDW Coefficient of Variation 18.8 % (11.5-14.5); RDW Standard Deviation 54.1 fL (36.4-46.3); White Blood Count 21.17 K/uL (4.8-10.8)
[2021-09-13] MEDS: DOXYCYCLINE HYCLATE 100 MG in DEXTROSE 5% 100 ML IV SCH ×2 (07:46→22:01)
[2021-09-13 08:00] LABS: Albumin Level 2.8 gm/dl (3.4-5.0); BUN Creatinine Ratio 23.9 (10-20); Bilirubin Direct 0.2 mg/dl (0-0.2); Bilirubin,Total 0.7 mg/dl (0.2-1.0); Calcium 7.7 mg/dl (8.5-10.1); Creatinine Clr Calc Pharmacy 99.3 ml/min; Est GFR (African American) 112.8 ml/min; Est GFR (Non-African American) 97.4 ml/min; Magnesium 2.2 mg/dl (1.7-2.4); Phosphorus 2.6 mg/dl (2.5-4.9); Potassium 3.3 mmol/L (3.5-5.1); Total Protein 5.9 gm/dl (6.0-8.3)
[2021-09-13 08:10] LABS: Basophils # (auto) 0.01 K/uL (0-0.2); Eosinophils # (auto) 0.18 K/uL (0-0.5); Eosinophils % (auto) 0.9 %; Immature Granulocytes # (auto) 0.07 K/uL (0.00-0.02); Immature Granulocytes % (auto) 0.3 %; Lymphocytes # (auto) 2.19 K/uL (1.2-3.4); Lymphocytes % (auto) 10.3 %; Neutrophils # (auto) 17.02 K/uL (1.4-6.5); Neutrophils % (auto) 80.5 %; Polychromasia 1+
[2021-09-13] MEDS: INSULIN ASPART PER UNIT SC SCH ×4 (08:13→20:34)
--- NOTE | 2021-09-13 08:22 | Gastroenterology Progress Note ---
Date of Service September 13, 2021 Assessment & Plan (1) Duodenal ulcer: Plan: Duodenal ulcer: Status post EGD which GI bleeding from duodenal ulcers. Possibly from NSAID but still wonder about small vessel ischemia. Recommended completion of 72 hours of Protonix drip and then twice daily. Patient tolerating clears but continues to have some upper abdominal pain. Strict avoidance of NSAIDs is recommended moving forward. Would recommend holding Plavix for 7 days total from EGD. We will follow-up with patient in the office at discharge as he will likely require repeat EGD in about 6 to 8 weeks. hospitalist reports melena stool after I evaluated the patient today. Dr. Mcmahon will reevaluate patient when he rounds today Upper abdominal pain: Patient continues to have epigastric and right upper quadrant abdominal pain at rest and on exam. CT angiogram of the abdomen pelvis after demonstrated no evidence of ischemic changes. Appreciate surgery input. ? early pancreatitis - normal lipase WBC elevation: this is new, no fever but this elevation is worrisome, hematologic issue in the differential. could be explained by pneumonia currently being treated with cefepime per hospitalist. hx of Cdiff--no evidence of diarrhea at present Case reviewed with Dr. Mcmahon. Please refer to supervising physician addendum for further recommendations. I have spent 15 minutes of discrete time performing the activities of this visit which include but are not limited to review of the medical record, obtaining a history, physical exam, and entering information in the electronic record. (2) Acute blood loss anemia: Admission and Anticipated Discharge Date Admission Date: September 08, 2021 Supervising Physician Co-Signing Physician Notes I have seen and examined the patient. I agree with note above by DARNELL Lozano except as noted below. HPI with patient and son on speaker phone during H and P. Pt states abd pain about the same. Per nursing 2 dark bloody stools this am around 930 but none since. Per patient had bloody stool last night. Per patient stools are burgundy in color. LFTS and lipase have been normal times 3. PE Abdomen pos bs, mod epi guarding but no rebound A/P GI bleeding--likely from duodenal ulceration---pt ate this am so not a candidate for EGD today. Supportive care for now and if continue to bleed then scope over the weekend. Multiple ulcers noted so several possible sources but site of visible vessel before more likely. Ok for clear liquids now as those can be stopped for just 2 hours prior to a procedure if one is needed. Pt is hemodynamically stable to no urgent need for EGD with general anesthesia with intubation abdominal pain--likely from duodenal ulceration ? pancreatisi on CT scan--lipase normal so not clear if this is true pancreatitis or not. acute blood loss anemia-drop to 8.3 from 9.1---transfuse prn. elevated WBC --slight improvment on abx for pneumonia. As the supervising physician, Kayden Gallegos MD have spent 29 minutes of discrete time performing the activities of this visit which include but not limited to review of the medical records, obtaining a history, physical exam and entering information in the electronic record. DARNELL Lozano has reported spending 15 minutes of discrete time with the activities of this visit. Subjective Patient is sitting in bed eating breakfast this morning. He states overall his belly feels okay. He reports that his esophagus "feels full". He is denying any difficulty swallowing or problems coughing with swallowing. Denies any nausea or vomiting. Not sure when his last bowel movement was. Last documented bowel movement by nursing was 09/11/2021. Review of Systems Review of Systems: All systems reviewed & are unremarkable except as noted in Subjective Physical Exam Constitutional: WD/WN, vitals as above Respiratory: normal respiratory effort, lungs clear to auscultation Cardiovascular: RRR, no murmur, no edema Gastrointestinal (Abdomen): Inspection/Auscultation: normal bowel sounds Percussion/Palpation: + abdomen tender (RUQ and epigastric pain) and abdomen soft; no splenomegaly Psychiatric: A+Ox3, euthymic affect Results & Data ([facility]) Vital Signs (Past 12 Hours) Vital Signs Temp Pulse Pulse Resp BP BP Pulse Ox 09/13/21 07:38 36.5 C 68 18 166/71 H 97 09/13/21 07:15 68 09/13/21 03:14 37 C 64 18 129/75 94 09/12/21 23:04 37 C 66 18 133/72 97 09/12/21 21:51 69 Laboratory Results Laboratory Results - last 24 hr 09/12/21 09/12/21 09/12/21 06:37 06:37 06:37 WBC RBC Hgb Hct MCV MCH MCHC RDW Std Deviation RDW Coeff of Harjeet Plt Count MPV Immature Gran % (Auto) Neut % (Auto) Lymph % (Auto) [place] % (Auto) Eos % (Auto) Baso % (Auto) Neut # (Auto) Lymph # (Auto) [place] # (Auto) Eos # (Auto) Baso # (Auto) Immature Gran # (Auto) Polychromasia Poikilocytosis Peripher Smr Path Cons Sodium Potassium Chloride Carbon Dioxide Anion Gap BUN Creatinine Est Cr Clr Drug Dosing Est GFR ( Amer) Est GFR (Non-Af Amer) BUN/Creatinine Ratio Glucose POC Glucose Calcium Ionized Calcium Phosphorus 2.0 L Magnesium 2.2 Total Bilirubin 0.7 Direct Bilirubin 0.2 AST 30 ALT 13 Alkaline Phosphatase 91 Total Protein 6.1 Albumin 3.0 L Lipase 11 Urine Color Urine Appearance Urine pH Ur Specific [place] Urine Protein Urine Glucose (UA) Urine Ketones Urine Blood Urine Nitrite Urine Bilirubin Urine Urobilinogen Ur Leukocyte Esterase Urine RBC Urine WBC Ur Epithelial Cells Urine Bacteria Urine Mucus 09/12/21 09/12/21 09/12/21 10:40 11:25 16:28 WBC RBC Hgb Hct MCV MCH MCHC RDW Std Deviation RDW Coeff of Harjeet Plt Count MPV Immature Gran % (Auto) Neut % (Auto) Lymph % (Auto) Knox % (Auto) Eos % (Auto) Baso % (Auto) Neut # (Auto) Lymph # (Auto) Knox # (Auto) Eos # (Auto) Baso # (Auto) Immature Gran # (Auto) Polychromasia Poikilocytosis Peripher Smr Path Cons Sodium Potassium Chloride Carbon Dioxide Anion Gap BUN Creatinine Est Cr Clr Drug Dosing Est GFR ( Amer) Est GFR (Non-Af Amer) BUN/Creatinine Ratio Glucose POC Glucose 115 H 115 H Calcium Ionized Calcium Phosphorus Magnesium Total Bilirubin Direct Bilirubin AST ALT Alkaline Phosphatase Total Protein Albumin Lipase Urine Color Yellow Urine Appearance Clear Urine pH 6.0 Ur Specific [place] 1.025 Urine Protein 2+ H Urine Glucose (UA) Negative Urine Ketones 2+ H Urine Blood Trace-intact H Urine Nitrite Negative Urine Bilirubin Negative Urine Urobilinogen Negative Ur Leukocyte Esterase Negative Urine RBC 0-4 Urine WBC 0-5 Ur Epithelial Cells 10-20 H Urine Bacteria Negative Urine Mucus Present A 09/12/21 09/12/21 09/12/21 16:51 16:51 16:51 WBC 22.58 H RBC 3.59 L Hgb 9.1 L Hct 27.7 L MCV 77.2 L MCH 25.3 MCHC 32.9 RDW Std Deviation 52.3 H RDW Coeff of Harjeet 18.4 H Plt Count 373 MPV 9.4 Immature Gran % (Auto) 0.3 Neut % (Auto) 81.8 Lymph % (Auto) 8.3 Knox % (Auto) 9.1 Eos % (Auto) 0.5 Baso % (Auto) 0.0 Neut # (Auto) 18.48 H Lymph # (Auto) 1.87 Knox # (Auto) 2.05 H Eos # (Auto) 0.11 Baso # (Auto) 0.01 Immature Gran # (Auto) 0.06 H Polychromasia 1+ Poikilocytosis Present Peripher Smr Path Cons Sodium 133 L Potassium 3.1 L Chloride 101 Carbon Dioxide 24 Anion Gap 8 BUN 18 Creatinine 0.72 Est Cr Clr Drug Dosing 92.4 Est GFR ( Amer) 109.5 Est GFR (Non-Af Amer) 94.5 BUN/Creatinine Ratio 25.0 H Glucose 104 H POC Glucose Calcium 7.7 L Ionized Calcium Phosphorus 3.0 D Magnesium 2.2 Total Bilirubin 0.7 Direct Bilirubin 0.2 AST 27 ALT 15 Alkaline Phosphatase 88 Total Protein 6.1 Albumin 2.9 L Lipase Urine Color Urine Appearance Urine pH Ur Specific [place] Urine Protein Urine Glucose (UA) Urine Ketones Urine Blood Urine Nitrite Urine Bilirubin Urine Urobilinogen Ur Leukocyte Esterase Urine RBC Urine WBC Ur Epithelial Cells Urine Bacteria Urine Mucus 09/12/21 09/12/21 09/12/21 16:51 17:10 20:05 WBC RBC Hgb Hct MCV MCH MCHC RDW Std Deviation RDW Coeff of Harjeet Plt Count MPV Immature Gran % (Auto) Neut % (Auto) Lymph % (Auto) Knox % (Auto) Eos % (Auto) Baso % (Auto) Neut # (Auto) Lymph # (Auto) Knox # (Auto) Eos # (Auto) Baso # (Auto) Immature Gran # (Auto) Polychromasia Poikilocytosis Peripher Smr Path Cons Sodium Potassium Chloride Carbon Dioxide Anion Gap BUN Creatinine Est Cr Clr Drug Dosing Est GFR ( Amer) Est GFR (Non-Af Amer) BUN/Creatinine Ratio Glucose POC Glucose 132 H Calcium Ionized Calcium 1.06 L Phosphorus Magnesium Total Bilirubin Direct Bilirubin AST ALT Alkaline Phosphatase Total Protein Albumin Lipase 12 Urine Color Urine Appearance Urine pH Ur Specific [place] Urine Protein Urine Glucose (UA) Urine Ketones Urine Blood Urine Nitrite Urine Bilirubin Urine Urobilinogen Ur Leukocyte Esterase Urine RBC Urine WBC Ur Epithelial Cells Urine Bacteria Urine Mucus 09/13/21 09/13/21 09/13/21 07:06 07:06 07:35 WBC 21.17 H RBC 3.40 L Hgb 8.5 L Hct 26.6 L MCV 78.2 L MCH 25.0 MCHC 32.0 RDW Std Deviation 54.1 H RDW Coeff of Harjeet 18.8 H Plt Count 392 MPV 9.8 Immature Gran % (Auto) 0.3 Neut % (Auto) 80.5 Lymph % (Auto) 10.3 Knox % (Auto) 8.0 Eos % (Auto) 0.9 Baso % (Auto) 0.0 Neut # (Auto) 17.02 H Lymph # (Auto) 2.19 Knox # (Auto) 1.70 H Eos # (Auto) 0.18 Baso # (Auto) 0.01 Immature Gran # (Auto) 0.07 H Polychromasia 1+ Poikilocytosis Peripher Smr Path Cons Sodium 135 L Potassium 3.3 L Chloride 104 Carbon Dioxide 23 Anion Gap 8 BUN 16 Creatinine 0.67 Est Cr Clr Drug Dosing 99.3 Est GFR ( Amer) 112.8 Est GFR (Non-Af Amer) 97.4 BUN/Creatinine Ratio 23.9 H Glucose 85 POC Glucose 81 Calcium 7.7 L Ionized Calcium Phosphorus 2.6 Magnesium 2.2 Total Bilirubin 0.7 Direct Bilirubin 0.2 AST 23 ALT 15 Alkaline Phosphatase 86 Total Protein 5.9 L Albumin 2.8 L Lipase 14 Urine Color Urine Appearance Urine pH Ur Specific [place] Urine Protein Urine Glucose (UA) Urine Ketones Urine Blood Urine Nitrite Urine Bilirubin Urine Urobilinogen Ur Leukocyte Esterase Urine RBC Urine WBC Ur Epithelial Cells Urine Bacteria Urine Mucus Diagnostic Findings Chest X-Ray 09/12/21 10:02 XR chest 1V portable HISTORY: 71 years-old Male r/o pneumonia acute shortness of breath COMPARISON: CTA abdomen and pelvis 09/09/2021, chest radiograph 09/08/2021 TECHNIQUE: Portable AP view of the chest FINDINGS: The cardiac silhouette is enlarged. No pneumothorax or overt pulmonary edema. There are suggested trace pleural effusions. Mild persistent consolidation of the left lung base, similar to before 2021 study. Degenerative changes of the shoulders and spine with partially imaged lumbar spinal fusion hardware. Right shoulder arthroplasty. IMPRESSION: 1. Cardiomegaly without pulmonary edema. 2. Trace pleural effusions with persistent left basilar opacities suggestive of atelectasis versus pneumonia. ACT 112: Negative or not required by law. The above report was generated using voice recognition software. It may contain grammatical, syntax or spelling errors. Electronically signed by: Uli Whitman M.D. 09/12/2021 11:[address] 09/12/21 12:53 CT chest diagnostic wo con CLINICAL HISTORY: Shortness of breath. Evaluate for possible pneumonia. COMPARISON STUDY: Portable chest from 09/12/2021 and CTA of the abdomen from 09/09/2021 which included the lung bases CT DOSE: 341.90 mGy.cm TECHNIQUE: Standard CT of the Chest was performed without IV contrast. A dose lowering technique was utilized adhering to the principles of ALARA. FINDINGS: Airway: The airway is clear. No endobronchial lesion is identified. Lungs and pleura: There is a small left pleural effusion. Alveolar opacity is present in the left lung base as well with air bronchograms present. The findings are characteristic of early pneumonia. The remainder of the lungs are clear of acute alveolar opacities, air bronchograms or pulmonary nodules. Mediastinum: There is no evidence for pathologic adenopathy on these limited noncontrast images. The heart is mildly enlarged. There is coronary artery calcification present. The thoracic aorta is within normal limits. There is no evidence for pericardial effusion. Upper abdomen: Compared to the CTA of the abdomen, there are now mild edematous changes present involving the pancreas and peripancreatic fat. The presence of early acute pancreatitis cannot be excluded. Osseous structures: There is no acute osseous pathology. IMPRESSION: 1. Alveolar opacity at the left lung base with air bronchograms characteristic of early pneumonia. 2. There is associated small left pleural effusion. 3. Interval development of edematous changes of the pancreas and peripancreatic fat suspicious for early acute pancreatitis. ACT 112: Negative or not required by law. Electronically signed by: Ilan Hayes M.D. 09/12/2021 1:50 PM
[2021-09-13] MEDS ORDERED: POTASSIUM CHLORIDE CRTAB 20 MEQ TABCR PO SCH (09:00)
[2021-09-13 10:53] LABS: Hematocrit (blood only) 25.8 % (42-52); Hemoglobin 8.3 g/dL (14.0-18.0)
--- NOTE | 2021-09-13 11:10 | Surgery Progress Note ---
Date of Service September 13, 2021 Assessment & Plan (1) Acute blood loss anemia: Plan: Having some additional melena Monitoring his H&H Transfusion as needed Possible reendoscopy, possible bleeding scan Patient may need IR if he were to develop significant ongoing bleeding Unsure what the GI plan would be Admission and Anticipated Discharge Date Admission Date: September 08, 2021 Subjective Apparently had some melena H&H ordered for later This a.m.'s H&H slightly lower Vital signs are stable Review of Systems Review of Systems: All systems reviewed & are unremarkable except as noted in HPI & below Physical Exam Physical Exam: Patient is partially trying to get out of bed and appears to be very weak He is a major 2 person assist Appears very frail for his age of 71 years Not complaining of abdominal pain at the present time Constitutional: + thin; + not well nourished and no acute distress Eyes: + anicteric sclerae Respiratory: normal respiratory effort; no respiratory distress Cardiovascular: Rate/Rhythm: regular rate Gastrointestinal (Abdomen): Inspection/Auscultation: abdomen normal to inspection and normal bowel sounds; abdomen not distended Patient's abdomen is flat soft and has no significant tenderness and no peritoneal irritation Has no right upper quadrant tenderness Says his pain is mid upper epigastrium Musculoskeletal: Head/Neck/Chest: head atraumatic Skin: Mild mottling in his legs Neurologic: awake Psychiatric: Orientation: alert Results & Data ([facility]) Vital Signs (Past 12 Hours) Vital Signs Temp Pulse Pulse Resp BP BP Pulse Ox 09/13/21 10:36 36.8 C 68 18 126/70 96 09/13/21 07:38 36.5 C 68 18 166/71 H 97 09/13/21 07:15 68 09/13/21 03:14 37 C 64 18 129/75 94 PG Care Time/CCT Total # of Minutes Spent Total Time Spent with Patient: Total time spent is greater than 50% in coordination of care (as documented) at patient's floor/unit and/or counseling patient: Coding Level of Care Code 10997 Inpt Consult Level 2 Diagnoses Acute blood loss anemia D62
[2021-09-13] MEDS ORDERED: SODIUM CHLORIDE 0.9% 250 ML IV PRN (11:24)
[2021-09-13] MEDS ORDERED: PANTOPRAZOLE BOLUS/DRIP 1 EA IV STA (11:24)
[2021-09-13] MEDS ORDERED: PANTOprazole 80 MG in DEXTROSE 5% 100 ML IV ONE (11:30)
[2021-09-13] MEDS: PANTOprazole 40 MG in DEXTROSE 5% 100 ML IV SCH ×3 (12:27→21:45)
--- NOTE | 2021-09-13 13:13 | Hospitalist Progress Note ---
Date of Service September 13, 2021 Assessment & Plan (1) Acute blood loss anemia: Plan: per Dr. Berkowitz's notes with addendum: s/p 1 unit pRBC 09/09 s/p 1 unit pRBC 09/10. Repeat H/H at 3pm. Transfuse if Hb<8 09/13 (+) melena Hg dropped to 8.3 NPO, Protonix drip 1 unit pRBC repeat H&H 4pm GI notified, will reeval patient his afternoon (2) Duodenal ulcer: Plan: continue protonix drip CTA abd/pelvis requested by GI to evaluate for mesenteric ischemia was negative lactate elevated due to dehydration and active bleed Advance to clears 09/13 pathology report from EGD: FINAL DIAGNOSIS Duodenum, random, biopsy: - Duodenal mucosa with no diagnostic abnormality - Negative for histologic features of sprue - Negative for parasites - Negative for dysplasia and malignancy plan today per above CT chest showin. Alveolar opacity at the left lung base with air bronchograms characteristic of early pneumonia. 2. There is associated small left pleural effusion. 3. Interval development of edematous changes of the pancreas and peripancreatic fat suspicious for early acute pancreatitis. Lipase , LFTs: normal Persistent Leukocytosis, likely from PNA - CT chest: (+) L lower lobe pneumonia Cefepime + Doxycycline ordered - 2nd Blood culture: negative so far - WBC improved to 21k monitor - Peripheral smear pending Low K and Mg - replacement ongoing Trace Blood in the Urine - repeat as outpatient Plan: History of CVA -hold aspirin and plavix. FPC--Patient instructed to follow up with his Neurologist to determine whether he can be taken off either aspirin or plavix. He does NOT have any cardiac stents - hold ASA and Plavix Depression Mood disorder -continue home medications NIDDM -hold metformin, corrective scale insulin for now DVT ppx SCDs plan of care discussed with patient in detail and at length all questions answered he is understanding, agreeable, comfortable with the plan of care Admission and Anticipated Discharge Date Admission Date: September 08, 2021 Subjective ff up for GI bleed, etc (+) melena with fresh blood this morning resting in bed, not in distress still has some mild epigastric discomfort no nausea no cough, SOB no chest pain, dyspnea, palpitations, dizziness no other symptoms Review of Systems Review of Systems: all noted and negative except for above Physical Exam Physical Exam: General- oriented x 3, not in distress, speaks in sentences with no effort or accessory muscle use Eyes- anicteric Neck- no JVD Lungs- clear BS bilaterally, no rales/wheezes Heart- normal rate, regular rhythm; no murmurs Abdomen- normal bowel sounds, nondistended, soft, mild epig tenderness Extremities- no pretibial edema, no calf tenderness Neuro- alert, oriented x 3; no gross focal neurologic deficits Skin- warm & dry Results & Data Results & Data ([facility]) Vital Signs (Past 12 Hours) Vital Signs Temp Pulse Pulse Resp BP BP Pulse Ox 09/13/21 10:36 36.8 C 68 18 126/70 96 09/13/21 07:38 36.5 C 68 18 166/71 H 97 09/13/21 07:15 68 09/13/21 03:14 37 C 64 18 129/75 94 all noted and reviewed including below
[2021-09-13] MEDS: D5NSS + 20MEQ KCL 20 MEQ/1,000 ML BAG IV SCH (16:16)
[2021-09-13 18:31] LABS: Hematocrit (blood only) 29.8 % (42-52); Hemoglobin 9.9 g/dL (14.0-18.0)
[2021-09-13] MEDS: AMITRIPTYLINE HCL 10 MG TAB PO SCH (21:47)
[2021-09-14] MEDS: ACETAMINOPHEN 325 MG TAB PO SCH ×4 (02:23→21:10)
[2021-09-14] MEDS: PANTOprazole 40 MG in DEXTROSE 5% 100 ML IV SCH ×3 (02:31→13:15)
[2021-09-14] MEDS: CEFEPIME 2,000 MG in SYRINGE 0 ML IV SCH ×3 (05:42→21:11)
[2021-09-14 06:28] LABS: Hematocrit (blood only) 28.1 % (42-52); Hemoglobin 9.2 g/dL (14.0-18.0); Mean Corpuscular Hemoglobin 25.9 pg (25-34); Mean Corpuscular Hgb Conc 32.7 g/dL (32-36); Mean Corpuscular Volume 79.2 fL (80-100); Mean Platelet Volume 9.5 fL (7.4-10.4); Platelet Count 359 K/uL (130-400); RDW Coefficient of Variation 18.9 % (11.5-14.5); RDW Standard Deviation 55.3 fL (36.4-46.3); Red Blood Count 3.55 M/uL (4.7-6.1); White Blood Count 18.25 K/uL (4.8-10.8)
[2021-09-14 06:51] LABS: BUN Creatinine Ratio 18.2 (10-20); Calcium 7.5 mg/dl (8.5-10.1); Creatinine Clr Calc Pharmacy 100.8 ml/min; Est GFR (African American) 113.5 ml/min; Potassium 3.2 mmol/L (3.5-5.1)
[2021-09-14 06:57] LABS: ALC (manual) 0.78 K/uL (1.2-3.4); ANC (manual) 14.76 K/uL (1.4-6.5); Eosinophils # (manual) 0.16 K/uL (0-0.5); Eosinophils % (manual) 0.9 %; Lymphocytes # (manual) 0.78 K/uL (1.2-3.4); Lymphocytes % (manual) 4.3 %; Monocytes # (manual) 2.37 K/uL (0.11-0.59); Myelocytes # (manual) 0.16 K/uL (0-0); Myelocytes % (manual) 0.9 %; Neutrophils # (manual) 14.76 K/uL (1.4-6.5); Neutrophils % (manual) 80.9 %; Poikilocytosis Present; Polychromasia 1+
[2021-09-14] MEDS: SUCRALFATE 1 GM/10 ML UDC PO SCH ×4 (08:14→21:11)
[2021-09-14] MEDS: INSULIN ASPART PER UNIT SC SCH ×4 (08:14→20:35)
[2021-09-14] MEDS: CALCIUM CARBONATE 500 MG CHEWABLE TAB PO SCH ×3 (08:14→21:10)
[2021-09-14] MEDS: FLUoxetine HCL 20 MG CAP PO SCH (08:15)
[2021-09-14] MEDS: PROPRANOLOL HCL LA 80 MG CAPCR PO SCH (08:15)
[2021-09-14] MEDS: ATORVASTATIN 40 MG TAB PO SCH (08:15)
[2021-09-14] MEDS: buPROPion XL 150 MG TABCR PO SCH (08:15)
[2021-09-14] MEDS: CEROVITE ADV FORMULA TAB PO SCH (08:15)
[2021-09-14] MEDS: D5NSS + 20MEQ KCL 20 MEQ/1,000 ML BAG IV SCH (08:19)
[2021-09-14] MEDS: DOXYCYCLINE HYCLATE 100 MG in DEXTROSE 5% 100 ML IV SCH ×2 (08:34→21:12)
[2021-09-14] MEDS: POTASSIUM CHLORIDE / WTR 10 MEQ/100 ML PLCT IV SCH ×4 (08:39→11:40)
--- NOTE | 2021-09-14 09:55 | Gastroenterology Progress Note ---
Date of Service September 14, 2021 Assessment & Plan (1) Duodenal ulcer: Plan: 71 yo male with CVA (on ASA 325 mg and plavix), AAA s/p endovascular repair, COPD, HTN, HLD, and DM2 (baseline hgb 12) who take meloxicam daily for joint swelling. Presented with syncope, abdominal pain, and n/v. Patient now with inflammation around pancreas on CT chest and continued slow upper GI bleeding. 1) Upper GI bleed and acute blood loss anemia (known PUD vs aorto-enteric fistula) - please obtain CTA and will perform EGD today given onlgoing bleeding - this will help evaluate for AEF but may still need vascular surgery consult regardless given cryptic nature - cont PPI gtt - NPO - please obtain stool h pylori - hold AC and NSAIDs 2) Pancreatitis? - atypical in setting of upper GI bleed (see above discussion) - Will await CTA results, lipase neg 3) PNA - defer to primary, explains leukocytosis 4) Microcytosis - s/p 3 u pRBC, can obtain iron studies once more stable (2) Acute blood loss anemia: Plan: see above (3) Abdominal pain: Plan: see above (4) Acute upper GI bleed: Plan: see above Admission and Anticipated Discharge Date Admission Date: September 08, 2021 Subjective First time seeing patient. As review. Patient admitted with syncope and abdominal pain with n/v, question of GOO coming from D2/D3. NGT inserted. EGD on 09/09 with duodenal ulcers and VV treated with epi/clpis in D1 and D2 treated. Old blood and diagnosis of upper GI bleed. Concern for ischemia to this area. CTA negative. Patient with 1u pRBC no 09/09, 1u on 09/10, and 1 u on 09/13 (yesterday). CT chest with pneumonia which explains leukocytosis and concern for pancreatitis but lipase wnl. Continues to have dark maroon BMs yesterday and one this AM. still has some mild epigastric discomfort no nausea no other symptoms 2020 EGD showed normal esophagus, gastroesophageal flap valve classified as Hill grade 1, mild gastritis 2019 colonoscopy showed diverticulosis in the sigmoid colon and descending colon. Review of Systems Review of Systems: complete 14 point ROS is negative unless otherwise stated in above HPI. Physical Exam Physical Exam: asleep resting comfortable in bed Constitutional: WD/WN, vitals as above Eyes: no scleral icterus Respiratory: no resp distress Cardiovascular: see tele, rrr Gastrointestinal (Abdomen): soft, NT ND, no masses Skin: warm dry intact Neurologic: moves all extremities and awake Psychiatric: A+Ox3, euthymic affect Results & Data ([facility]) Vital Signs (Past 12 Hours) Vital Signs Temp Pulse Pulse Resp BP Pulse Ox 09/14/21 07:42 36.6 C 67 18 133/72 93 09/14/21 07:09 70 09/14/21 03:35 37 C 53 L 18 148/74 H 97 09/13/21 23:14 37 C 70 18 142/73 H 93 09/13/21 23:01 68
--- NOTE | 2021-09-14 10:42 | Anesthesiology Consultation ---
Date of Service September 14, 2021 Assessment & Plan (1) Encounter for pre-operative examination: Chart Review Chart Review: Acceptable Risk for Surgery and Patient NOT seen in Pre Admission Testing Consults Requested none History Surgery Operation Date: 09/09/21 12:05 Proposed Procedures p Esophagogastroduodenoscopy - Arsenio Plata MD Operation Date: 09/09/21 16:45 Proposed Procedures p Esophagogastroduodenoscopy Dr. Plata - Arsenio Plata MD Height/Weight Height: 5 ft 8 in Weight: 75.5 kg Allergies Allergy/AdvReac Type Severity Reaction Status Date / Time tetracycline Allergy Mild RASH Verified 09/09/21 10:19 Medications Home Medications Medication Instructions Recorded Confirmed Last Taken albuterol sulfate 90 mcg/actuation 2 puff INHALATION Q4 PRN 09/08/21 09/08/21 Unknown aerosol inhaler amitriptyline 10 mg tablet 10 mg PO HS 09/08/21 09/08/21 Unknown aspirin 325 mg tablet 325 mg PO DAILY 09/08/21 09/08/21 Unknown atorvastatin 40 mg tablet 40 mg PO DAILY 09/08/21 09/08/21 Unknown bupropion HCl 150 mg 24 hr tablet, 150 mg PO DAILY 09/08/21 09/08/21 Unknown extended release calcium carbonate 500 mg calcium 500 mg PO TID 09/08/21 09/08/21 Unknown (1,250 mg) chewable tablet clopidogrel 75 mg tablet 75 mg PO QAM 09/08/21 09/08/21 Unknown fluoxetine 20 mg capsule 20 mg PO DAILY 09/08/21 09/08/21 Unknown fluoxetine 40 mg capsule 40 mg PO DAILY 09/08/21 09/08/21 Unknown lorazepam 1 mg tablet 1 mg PO HS PRN 09/08/21 09/08/21 Unknown meloxicam 15 mg tablet 15 mg PO DAILY 09/08/21 09/08/21 Unknown metformin 500 mg tablet 500 mg PO BID 09/08/21 09/08/21 Unknown khjkrgpb-kwq-qgmuo acid 0.4 1 tab PO DAILY 09/08/21 09/08/21 Unknown mg-lycopene 300 mcg-lutein 250 mcg tablet (Centrum Silver) pantoprazole 40 mg tablet,delayed 40 mg PO DAILYBB 09/08/21 09/08/21 Unknown release propranolol 160 mg capsule,24 160 mg PO DAILY 09/08/21 09/08/21 Unknown hr,extended release rizatriptan 10 mg tablet 10 mg PO UD PRN 09/08/21 09/08/21 Unknown tramadol 50 mg tablet 50 mg PO Q6 PRN 09/08/21 09/08/21 Unknown Active Medications Generic Name Dose Route Start Last Admin Trade Name Freq PRN Reason Stop Dose Admin Acetaminophen 650 mg 09/12/21 14:15 09/14/21 08:14 Acetaminophen 325 Mg Tab PO 10/12/21 14:14 650 mg Q6H SHERIE Administration Amitriptyline HCl 10 mg 09/08/21 21:45 09/13/21 21:47 Amitriptyline Hcl 10 Mg Tab PO 10/08/21 21:44 10 mg HS SHERIE Administration Atorvastatin Calcium 40 mg 09/09/21 09:00 09/14/21 08:15 Atorvastatin 40 Mg Tab PO 10/09/21 08:59 40 mg DAILY SHERIE Administration Bupropion HCl 150 mg 09/12/21 17:15 09/14/21 08:15 Bupropion Xl 150 Mg Tabcr PO 10/12/21 17:14 150 mg QAM SHERIE Administration Calcium Carbonate 500 mg 09/12/21 21:00 09/14/21 08:14 Calcium Carbonate 500 Mg Chewable Tab PO 10/12/21 20:59 500 mg TID SHERIE Administration Fluoxetine HCl 40 mg 09/09/21 09:00 09/14/21 08:15 Fluoxetine Hcl 20 Mg Cap PO 10/09/21 08:59 40 mg DAILY SHERIE Administration Promethazine HCl 12.5 mg/ 50.5 mls @ 202 mls/hr 09/08/21 21:38 09/09/21 22:46 Sodium Chloride IV 10/08/21 21:37 Infused Q6H PRN Infusion Nausea And Vomiting Pantoprazole Sodium 40 mg/ 10 mls @ 5 mls/min 09/12/21 09:00 09/13/21 07:25 Syringe IV 10/12/21 08:59 5 mls/min BID SHERIE Administration Cefepime HCl 2,000 mg/ Syringe 20 mls @ 5 mls/min 09/12/21 14:30 09/14/21 05:42 IV 09/19/21 14:29 5 mls/min Q8 SHERIE Administration Protocol Doxycycline Hyclate 100 mg/ 110 mls @ 55 mls/hr 09/12/21 15:00 09/14/21 10:35 Dextrose IV 09/19/21 14:59 Infused BID SHERIE Infusion Protocol Pantoprazole Sodium 40 mg/ 100 mls @ 20 mls/hr 09/13/21 11:45 09/14/21 08:26 Dextrose IV 10/13/21 11:44 8 mg/hr Q5H SHERIE 20 mls/hr Administration 8 MG/HR Potassium Chloride/Dextrose/Sod Cl 20 meq in 1,000 mls @ 60 mls/hr 09/13/21 13:30 09/14/21 10:38 D5nss + 20meq Kcl IV 10/13/21 13:29 60 mls/hr .[id number] SHERIE Infusion Protocol Potassium Chloride 10 meq in 100 mls @ 100 mls/hr 09/14/21 07:30 09/14/21 10:35 K Sahil / Wtr IV 09/14/21 11:29 100 mls/hr Q1H SHERIE Administration Protocol Insulin Aspart 0 units 09/10/21 16:30 09/14/21 08:14 Insulin Aspart Per Unit SC 10/10/21 16:29 Not Given ACHS SHERIE Multivitamins/Minerals 1 tab 09/09/21 09:00 09/14/21 08:15 Cerovite Adv Formula Tab PO 10/09/21 08:59 1 tab DAILY SHERIE Administration Propranolol HCl 160 mg 09/11/21 11:00 09/14/21 08:15 Propranolol Hcl La 80 Mg Capcr PO 10/11/21 10:59 160 mg DAILY SHERIE Administration Sucralfate 1 gm 09/12/21 14:00 09/14/21 08:14 Sucralfate 1 Gm/10 Ml Udc PO 10/12/21 13:59 1 gm QID SHERIE Administration NPO Date Last Intake of Fluids: 09/09/21 Time Last Intake of Fluids: 08:00 Last Intake of Fluids Comment: sips with pills. no vomiting,NGT with 400ml output O/N and 175ml in preop Date Last Intake of Solids: 09/08/21 Time Last Intake of Solids: 12:00 Past Medical History Medical History Abdominal pain, acute, epigastric Acute upper GI bleed Depression Diabetes mellitus, type II DJD (degenerative joint disease) DJD (degenerative joint disease), multiple sites Dyslipidemia Gastric outlet obstruction H/O asbestos exposure H/O migraine with aura H/O restrictive lung disease History of CVA (cerebrovascular accident) "05/2015", no residual deficit History of tobacco abuse HTN (hypertension) Nausea & vomiting Obstructive sleep apnea on CPAP Slurred speech Syncope and collapse Past Surgical History Surgical History History of colonoscopy History of lumbar laminectomy "2000,2001,2004,2006" History of right hip replacement "01/2015" Social History Smoking Status: Former smoker tobacco type: cigarettes Smoking End Date: Pt. was former 1 PPD smoker/quit 8 years ago Hx Alcohol Use: No Hx Substance Use: No substance use type: does not use Physical Exam Vital Signs Last Vital Signs Temp 97.9 F 09/14/21 07:42 Pulse 67 09/14/21 07:42 Resp 18 09/14/21 07:42 BP 133/72 09/14/21 07:42 Pulse Ox 93 09/14/21 07:42 Testing Laboratory Results 09/14/21 05:58 09/14/21 05:58 APTT 21.5 Seconds (21.0-31.0) 09/08/21 20:44 Urine Color Yellow 09/12/21 10:40 Urine Appearance Clear (Clear) 09/12/21 10:40 Urine pH 6.0 (4.5-7.5) 09/12/21 10:40 Ur Specific [place] 1.025 (1.000-1.030) 09/12/21 10:40 Urine Protein 2+ (Negative) H 09/12/21 10:40 Urine Glucose (UA) Negative (Negative) 09/12/21 10:40 Urine Ketones 2+ (Negative) H 09/12/21 10:40 Urine Nitrite Negative (Negative) 09/12/21 10:40 Ur Leukocyte Esterase Negative (Negative) 09/12/21 10:40 Urine RBC 0-4 /hpf (0-4) 09/12/21 10:40 Urine WBC 0-5 /hpf (0-5) 09/12/21 10:40 Ur Epithelial Cells 10-20 /lpf (0-5) H 09/12/21 10:40 Blood Type A Positive 09/13/21 11:56 Antibody Screen NEGATIVE 09/13/21 11:56 09/12/21 10:10 Aerobic Blood Culture - Preliminary Blood No growth in Aerobic bottle after 24 hours. Anaerobic Blood Culture - Preliminary No growth in Anaerobic bottle after 24 hours. 09/12/21 10:16 Aerobic Blood Culture - Preliminary Blood No growth in Aerobic bottle after 24 hours. Anaerobic Blood Culture - Preliminary No growth in Anaerobic bottle after 24 hours. 09/09/21 14:57 Aerobic Blood Culture - Preliminary Blood No growth in Aerobic bottle after 48 hours. Anaerobic Blood Culture - Final 09/09/21 14:57 Aerobic Blood Culture - Preliminary Blood No growth in Aerobic bottle after 48 hours. Anaerobic Blood Culture - Preliminary No growth in Anaerobic bottle after 48 hours. 09/14/21 07:48 POC Glucose 118 H Electrocardiogram Date: 09/11/21 Findings: + NSR @ prolonged QT 495 Chest X-Ray Date: 09/12/21 Findings: + cardiomegaly Echocardiogram Date: 09/09/21 EF: 60-65 LV Function: normal
--- NOTE | 2021-09-14 11:00 | Surgery Progress Note ---
Date of Service September 14, 2021 Assessment & Plan (1) Duodenal ulcer: Plan: Agree with the need for an upper endoscopy for diagnosis and possible therapeutic. We will continue to follow closely and make recommendations accordingly. (2) Acute blood loss anemia: (3) Diabetes mellitus, type II: (4) Acute upper GI bleed: Admission and Anticipated Discharge Date Admission Date: September 08, 2021 Subjective Patient resting comfortably. I did not awaken him. I spoke with primary service who states he is still having bloody bowel movements. Hemoglobin came up after transfusion yesterday but continues to slowly trickle down. Results & Data ([facility]) Vital Signs (Past 12 Hours) Vital Signs Temp Pulse Pulse Resp BP Pulse Ox 09/14/21 07:42 36.6 C 67 18 133/72 93 09/14/21 07:09 70 09/14/21 03:35 37 C 53 L 18 148/74 H 97 09/13/21 23:14 37 C 70 18 142/73 H 93 09/13/21 23:01 68 PG Care Time/CCT Total # of Minutes Spent Total Time Spent with Patient: Total time spent is greater than 50% in coordination of care (as documented) at patient's floor/unit and/or counseling patient: Coding Level of Care Code 10139 Subseq Hosp Care Lvl 3 Diagnoses Duodenal ulcer K26.9 Acute blood loss anemia D62 Diabetes mellitus, type II E11.9 Acute upper GI bleed K92.2
[2021-09-14 12:02] LABS: Hematocrit (blood only) 27.4 % (42-52); Hemoglobin 9.1 g/dL (14.0-18.0)
[2021-09-14] MEDS ORDERED: ATROPINE SULFATE 0.1 MG/ML 10ML SYR IV PRN (14:09)
[2021-09-14] MEDS ORDERED: ONDANSETRON INJ 2 MG/ML 2 ML VIAL IV PRN (14:09)
[2021-09-14] MEDS ORDERED: ePHEDrine sulfate 50 MG/ML AMP IV PRN (14:09)
[2021-09-14] MEDS ORDERED: PROPOFOL IV EMULSION 10 MG/ML 20 ML VIAL IV ONE (14:42)
[2021-09-14] MEDS ORDERED: LIDOCAINE 2% 2 ML VIAL/AMP(20MG/ML) INFIL ONE (14:42)
--- NOTE | 2021-09-14 15:14 | History & Physical Report ---
Date of Service September 14, 2021 Assessment & Plan Plan: see progress note today Admission and Anticipated Discharge Date Admission Date: September 08, 2021 History of Present Illness Chief Complaint: see progress note today Primary Care Provider: Zaid Arnold, see progress note today Allergies Allergy/AdvReac Type Severity Reaction Status Date / Time tetracycline Allergy Mild RASH Verified 09/09/21 10:19 Home Medications Medication Instructions Recorded Confirmed Type albuterol sulfate 90 mcg/actuation 2 puff INHALATION Q4 PRN 09/08/21 09/08/21 History aerosol inhaler amitriptyline 10 mg tablet 10 mg PO HS 09/08/21 09/08/21 History aspirin 325 mg tablet 325 mg PO DAILY 09/08/21 09/08/21 History atorvastatin 40 mg tablet 40 mg PO DAILY 09/08/21 09/08/21 History bupropion HCl 150 mg 24 hr tablet, 150 mg PO DAILY 09/08/21 09/08/21 History extended release calcium carbonate 500 mg calcium 500 mg PO TID 09/08/21 09/08/21 History (1,250 mg) chewable tablet clopidogrel 75 mg tablet 75 mg PO QAM 09/08/21 09/08/21 History fluoxetine 20 mg capsule 20 mg PO DAILY 09/08/21 09/08/21 History fluoxetine 40 mg capsule 40 mg PO DAILY 09/08/21 09/08/21 History lorazepam 1 mg tablet 1 mg PO HS PRN 09/08/21 09/08/21 History meloxicam 15 mg tablet 15 mg PO DAILY 09/08/21 09/08/21 History metformin 500 mg tablet 500 mg PO BID 09/08/21 09/08/21 History sabukrhd-tbr-zmnyz acid 0.4 1 tab PO DAILY 09/08/21 09/08/21 History mg-lycopene 300 mcg-lutein 250 mcg tablet (Centrum Silver) pantoprazole 40 mg tablet,delayed 40 mg PO DAILYBB 09/08/21 09/08/21 History release propranolol 160 mg capsule,24 160 mg PO DAILY 09/08/21 09/08/21 History hr,extended release rizatriptan 10 mg tablet 10 mg PO UD PRN 09/08/21 09/08/21 History tramadol 50 mg tablet 50 mg PO Q6 PRN 09/08/21 09/08/21 History Past Med/Surg History Medical History Abdominal pain, acute, epigastric Acute upper GI bleed Depression Diabetes mellitus, type II DJD (degenerative joint disease) DJD (degenerative joint disease), multiple sites Dyslipidemia Gastric outlet obstruction H/O asbestos exposure H/O migraine with aura H/O restrictive lung disease History of CVA (cerebrovascular accident) "05/2015", no residual deficit History of tobacco abuse HTN (hypertension) Nausea & vomiting Obstructive sleep apnea on CPAP Slurred speech Syncope and collapse Surgical History History of colonoscopy History of lumbar laminectomy "2000,2001,2004,2006" History of right hip replacement "01/2015" Social History Smoking Status: Former smoker Smoking End Date: Pt. was former 1 PPD smoker/quit 8 years ago; Second Hand Exposure: No; Tobacco Cessation Education Requested by Patient: No Hx Alcohol Use: No Hx Substance Use: No Preferred Language: Croatian Communication Ability: Impaired Fruit Buyer Required: No Beliefs That Will Affect Care: None Current Living Situation: Spouse Current Living Situation Comment: Lives w/ Other Information That Helps Us Care for You: No Feels Safe at Home: Yes Safety Concerns: Feels Safe At This Time Assistive Devices: Cane and Glasses Assistive Devices Comment: Pt. states he uses cane at home Physical Exam Physical Exam: see progress note today Results & Data ([place]) Vital Signs (Past 12 Hours) Vital Signs Temp Pulse Pulse Pulse Resp BP Pulse Ox 09/14/21 15:05 63 21 131/58 L 98 09/14/21 14:55 64 20 135/67 98 09/14/21 14:47 36.3 C L 61 15 113/53 L 99 09/14/21 13:44 114 H 114 H 18 137/91 97 09/14/21 11:09 37.3 C 63 16 125/70 94 09/14/21 07:42 36.6 C 67 18 133/72 93 09/14/21 07:09 70 09/14/21 03:35 37 C 53 L 18 148/74 H 97 Code Status & VTE Plan VTE Prophylaxis Plan VTE Prophylaxis will be ordered: Yes
--- NOTE | 2021-09-14 15:14 | GI REPORT ---
Patient Name: Edi Estrada Procedure Date: 09/14/2021 2:03 PM Date of : 1950 Admit Type: Inpatient Age: 71 Gender: Male Attending MD: Nikunj Dey DO Procedure: Upper GI endoscopy Providers: Nikunj Dey DO Referring MD: Chema Retana Indications: Acute post hemorrhagic anemia, Melena, Active gastrointestinal bleeding Patient Profile: 71 y/M with AAA and GI bleed, see progress note for further details. Medicines: Sedation Administered by an Anesthesia Professional, Deep sedation was administered Complications: No immediate complications. Estimated Blood Loss: Estimated blood loss was minimal. Procedure: Pre-Anesthesia Assessment: - Prior to the procedure, a History and Physical was performed, and patient medications and allergies were reviewed. The patient's tolerance of previous anesthesia was also reviewed. The risks and benefits of the procedure and the sedation options and risks were discussed with the patient. All questions were answered, and informed consent was obtained. Prior Anticoagulants: The patient last took antiplatelet medication 7 days prior to the procedure and has taken no previous anticoagulant or antiplatelet agents except for aspirin. ASA Grade Assessment: III - A patient with severe systemic disease. After reviewing the risks and benefits, the patient was deemed in satisfactory condition to undergo the procedure. After obtaining informed consent, the endoscope was passed under direct vision. Throughout the procedure, the patient's blood pressure, pulse, and oxygen saturations were monitored continuously. The Endoscope was introduced through the mouth, and advanced to the second part of duodenum. The upper GI endoscopy was accomplished without difficulty. The patient tolerated the procedure well. Findings: The examined esophagus was normal. The entire examined stomach was normal. A foreign body (two clips) was found in the duodenal bulb. Few non-bleeding superficial duodenal ulcers with a clean ulcer base (Joshua Class III) were found in the first portion of the duodenum and in the second portion of the duodenum. The scope was fitted with a transparent cap and the entire duodenum up to D4 vs proximal jejunum was examined. There was no evidence of AEF and D2 solitary ulcer was inspected closely, revealing a clean based. D1 ulcer contained two clips without any high risk stigmata and contained more inflammation than D2 ulcer (unclear etiology, i.e. NSAID induced or intra-abdominal process). Impression: - Normal esophagus and stomach. No blood visualized. - Clean based D1 ulcer with two clips in place without any high risk stigmata. - Small clean based D2 ulcer . Recommendation: - Return patient to [facility] for [facility] care. - Resume previous diet. - Patient has a contact number available for emergencies. The signs and symptoms of potential delayed complications were discussed with the patient. Return to normal activities tomorrow. Written discharge instructions were provided to the patient. DO Nikunj Leggett DO 09/14/2021 3:13:52 PM This report has been signed electronically. Note Initiated On: 09/14/2021 2:03 PM Number of Addenda: 0 I attest to the content of the Intraoperative Record and orders documented therein, exceptions below {[id number]}
--- NOTE | 2021-09-14 15:43 | Anesthesiology Progress Note ---
Date of Service September 14, 2021 Anesthesia Post Procedure Vital Signs Vital Signs: Temp Pulse Pulse Pulse Resp BP BP 09/14/21 15:15 65 22 09/14/21 15:05 63 21 09/14/21 14:55 64 20 09/14/21 14:47 97.3 F L 61 15 09/14/21 13:44 114 H 114 H 18 09/14/21 11:09 99.1 F 63 16 09/14/21 07:42 97.9 F 67 18 09/14/21 07:09 70 09/14/21 03:35 98.6 F 53 L 18 09/13/21 23:14 98.6 F 70 18 09/13/21 23:01 68 09/13/21 19:54 98.6 F 71 16 152/73 H 09/13/21 17:40 99.0 F 75 18 148/78 H 09/13/21 16:40 98.6 F 76 18 157/87 H BP Pulse Ox 09/14/21 15:15 111/69 98 09/14/21 15:05 131/58 L 98 09/14/21 14:55 135/67 98 09/14/21 14:47 113/53 L 99 09/14/21 13:44 137/91 97 09/14/21 11:09 125/70 94 09/14/21 07:42 133/72 93 09/14/21 07:09 09/14/21 03:35 148/74 H 97 09/13/21 23:14 142/73 H 93 09/13/21 23:01 09/13/21 19:54 97 09/13/21 17:40 97 09/13/21 16:40 98 Pain Intensity Right Abdomen: Pain Intensity: 9 Bilateral Abdomen: Pain Intensity: 0 Medial Abdomen: Pain Intensity: 8 Transfer of Care Handoff Completed per policy Notes Mental Status: alert / awake / arousable and participated in evaluation Patient Amnestic to Procedure: Yes Nausea / Vomiting: adequately controlled Pain: adequately controlled Airway Patency, RR, SpO2: stable & adequate BP & HR: stable & adequate Hydration State: stable & adequate Anesthetic Complications: no major complications apparent and Pt Satisfied with anesthetic care
--- NOTE | 2021-09-14 16:22 | Hospitalist Progress Note ---
Date of Service September 14, 2021 Assessment & Plan (1) Acute blood loss anemia: Plan: per Dr. Berkowitz's notes with addendum: s/p 1 unit pRBC 09/09 s/p 1 unit pRBC 09/10. Repeat H/H at 3pm. Transfuse if Hb<8 09/14 (+) melena Hg dropped to 9.3--> 9.1 repeat EGD: no new bleeding; (+) clean based ulcers per GI: protonix BID, clears CT angio abd/pelvis: r/o Aortoenteric fistula (2) Duodenal ulcer: Plan: continue protonix drip CTA abd/pelvis requested by GI to evaluate for mesenteric ischemia was negative lactate elevated due to dehydration and active bleed Advance to clears 09/13 pathology report from EGD: FINAL DIAGNOSIS Duodenum, random, biopsy: - Duodenal mucosa with no diagnostic abnormality - Negative for histologic features of sprue - Negative for parasites - Negative for dysplasia and malignancy plan today per above CT chest showin. Alveolar opacity at the left lung base with air bronchograms characteristic of early pneumonia. 2. There is associated small left pleural effusion. 3. Interval development of edematous changes of the pancreas and peripancreatic fat suspicious for early acute pancreatitis. Lipase , LFTs: normal Persistent Leukocytosis, likely from PNA - CT chest: (+) L lower lobe pneumonia Cefepime + Doxycycline ordered - 2nd Blood culture: negative so far - WBC improved to 18k monitor - Peripheral smear pending Low K and Mg - replacement ongoing Trace Blood in the Urine - repeat as outpatient Plan: History of CVA -hold aspirin and plavix. 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 He does NOT have any cardiac stents - hold ASA and Plavix Depression Mood disorder -continue home medications NIDDM -hold metformin, corrective scale insulin for now DVT ppx SCDs plan of care discussed with patient in detail and at length all questions answered he is understanding, agreeable, comfortable with the plan of care Admission and Anticipated Discharge Date Admission Date: September 08, 2021 Subjective ff up for gi bleed, etc had another dark red BM overnight seen resting in bed, comfortable states he feels better today epigastric pain is now mild, intermittent no nausea/vomiting no cough, SOB no other symptoms Review of Systems Review of Systems: all noted and negative except for above Physical Exam Physical Exam: General- oriented x 3, not in distress, speaks in sentences with no effort or accessory muscle use Eyes- anicteric Neck- no JVD Lungs- clear breath sounds bilaterally, no rales/wheezes Heart- normal rate, regular rhythm; no murmurs Abdomen- normal bowel sounds, nondistended, soft, mild epig tenderness Extremities- no pretibial edema, no calf tenderness Neuro- alert, oriented x 3; no gross focal neurologic deficits Skin- warm & dry Results & Data Results & Data ([facility]) Vital Signs (Past 12 Hours) Vital Signs Temp Pulse Pulse Pulse Resp BP Pulse Ox 09/14/21 15:15 65 22 111/69 98 09/14/21 15:05 63 21 131/58 L 98 09/14/21 14:55 64 20 135/67 98 09/14/21 14:47 36.3 C L 61 15 113/53 L 99 09/14/21 13:44 114 H 114 H 18 137/91 97 09/14/21 11:09 37.3 C 63 16 125/70 94 09/14/21 07:42 36.6 C 67 18 133/72 93 09/14/21 07:09 70 all noted and reviewed including below
[2021-09-14] MEDS ORDERED: LORazepam 0.5 MG TAB PO STA (17:41)
[2021-09-14 18:03] LABS: Hematocrit (blood only) 28.4 % (42-52); Hemoglobin 9.3 g/dL (14.0-18.0)
[2021-09-14] MEDS ORDERED: OPTIRAY 320 125ml IV ONE (18:42)
--- NOTE | 2021-09-14 19:12 | CT Scan Report ---
CT angio abdomen pelvis w con CLINICAL HISTORY: Evaluate for aortoenteric fistula COMPARISON STUDY: CTA abdomen from 09/09/2021 CT DOSE: 444.07 mGy.cm TECHNIQUE: Standard CT Angiogram of the aorta was performed with IV contrast followed by image post p rocessing with coronal, and sagittal MIP reformats... This CT exam was performed using one or more of the following dose reduction techniques: Automated ex posure control, adjustment of the mA and/or kV according to patient size, or use of iterative reconst ruction technique. CONTRAST: Optiray 320, 120 mL nonionic intravenous contrast. VASCULAR FINDINGS: Abdominal aorta: There is again an aortobiiliac stent in place with no evidence for leakage from the stent. There is no evidence for fistula between the aorta and bowel. Celiac trunk: patent without stenosis. Superior mesenteric artery: patent without stenosis. Right renal artery: patent without stenosis. Left renal artery: patent without stenosis. Inferior mesenteric artery: Not visualized Right common iliac artery: Patent stent in place Right internal iliac artery: patent without stenosis. Right external iliac artery: patent without stenosis. Left common iliac artery: Patent stent in place Left internal iliac artery: patent without stenosis. Left external iliac artery: patent without stenosis NONVASCULAR FINDINGS: Lung base: There is small left pleural effusion and left basilar atelectasis. Abdominal cavity: There is no evidence for abdominal mass, adenopathy or ascites. Liver: There is homogeneous attenuation of the liver parenchyma. There is no evidence for enhancing m ass lesion. Spleen: There is homogeneous attenuation of the splenic parenchyma. There is no enhancing mass lesion . Pancreas: There is homogeneous attenuation of the pancreatic parenchyma. However, there is mild diffu se edema surrounding the body and tail the pancreas suspicious for mild acute pancreatitis. This has developed since the previous study. No focal peripancreatic fluid collections are identified. Gall Bladder: The gallbladder is now grossly distended with no evidence for intraluminal calculi, wal l thickening or pericholecystic edema. Adrenal glands: The adrenal glands are normal in size and attenuation. There is no evidence for enhan cing mass lesion. Kidneys: There is homogeneous attenuation of the renal parenchyma bilaterally. There is no evidence f or renal calculus or hydronephrosis. There is no evidence for enhancing mass. Bowel: The bowel loops are normally placed within the abdomen and pelvis without evidence for dilatat ion or obstruction. There is again sigmoid diverticulosis with mucosal thickening with no CT evidence for diverticulitis. There are no inflammatory changes present. There is no evidence for free air. Bladder: The bladder is mildly distended with no evidence for focal mass, calculus or diverticulum. H owever, the bladder is partially obscured by imaging artifact from bilateral hip prostheses. : There is no evidence for pelvic mass or adenopathy. There is no evidence for pelvic ascites. Osseous structures: There is no acute osseous pathology. Degenerative changes in the spine. IMPRESSION: 1. Compared to previous study, stable aortobiiliac graft is in place. There is no evidence for aorta enteric fistula. 2. Interval development of acute pancreatitis. 3. Diverticulosis without evidence for diverticulitis is again seen. 4. Additional nonacute findings are delineated above. ACT 112: Negative or not required by law. Electronically signed by: Ilan Hayes M.D. 09/14/2021 7:10 PM
[2021-09-14] MEDS: AMITRIPTYLINE HCL 10 MG TAB PO SCH (20:39)
[2021-09-14] MEDS: PANTOprazole 40 MG in SYRINGE 0 ML IV SCH (21:11)
[2021-09-15] MEDS: D5NSS + 20MEQ KCL 20 MEQ/1,000 ML BAG IV SCH ×2 (01:46→15:40)
[2021-09-15] MEDS: ACETAMINOPHEN 325 MG TAB PO SCH ×3 (01:46→11:08)
[2021-09-15] MEDS: CEFEPIME 2,000 MG in SYRINGE 0 ML IV SCH ×3 (05:01→21:15)
[2021-09-15 06:55] LABS: Hematocrit (blood only) 27.6 % (42-52); Mean Corpuscular Hemoglobin 25.7 pg (25-34); Mean Corpuscular Hgb Conc 32.6 g/dL (32-36); Mean Corpuscular Volume 78.9 fL (80-100); Platelet Count 379 K/uL (130-400); RDW Coefficient of Variation 19.5 % (11.5-14.5); RDW Standard Deviation 56.7 fL (36.4-46.3); White Blood Count 17.33 K/uL (4.8-10.8)
[2021-09-15 07:17] LABS: BUN Creatinine Ratio 13.9 (10-20); Calcium 7.8 mg/dl (8.5-10.1); Creatinine Clr Calc Pharmacy 92.4 ml/min; Est GFR (African American) 109.5 ml/min; Est GFR (Non-African American) 94.5 ml/min; Potassium 3.6 mmol/L (3.5-5.1)
[2021-09-15 07:29] LABS: ALC (manual) 0.75 K/uL (1.2-3.4); ANC (manual) 14.77 K/uL (1.4-6.5); Basophils # (manual) 0.16 K/uL (0-0.2); Basophils % (manual) 0.9 %; Eosinophils # (manual) 0.61 K/uL (0-0.5); Eosinophils % (manual) 3.5 %; Lymphocytes # (manual) 0.75 K/uL (1.2-3.4); Lymphocytes % (manual) 4.3 %; Monocytes # (manual) 1.06 K/uL (0.11-0.59); Monocytes % (manual) 6.1 %; Neutrophils # (manual) 14.77 K/uL (1.4-6.5); Neutrophils % (manual) 85.2 %; Poikilocytosis Present; Polychromasia 1+
[2021-09-15] MEDS: PANTOprazole 40 MG in SYRINGE 0 ML IV SCH ×2 (07:34→20:42)
[2021-09-15] MEDS: INSULIN ASPART PER UNIT SC SCH ×4 (07:34→21:24)
[2021-09-15] MEDS: SUCRALFATE 1 GM/10 ML UDC PO SCH ×4 (07:35→20:42)
[2021-09-15] MEDS: CEROVITE ADV FORMULA TAB PO SCH (07:35)
[2021-09-15] MEDS: FLUoxetine HCL 20 MG CAP PO SCH (07:35)
[2021-09-15] MEDS: ATORVASTATIN 40 MG TAB PO SCH (07:36)
[2021-09-15] MEDS: buPROPion XL 150 MG TABCR PO SCH (07:36)
[2021-09-15] MEDS: CALCIUM CARBONATE 500 MG CHEWABLE TAB PO SCH ×3 (07:36→20:42)
[2021-09-15] MEDS: PROPRANOLOL HCL LA 80 MG CAPCR PO SCH (07:36)
[2021-09-15] MEDS: DOXYCYCLINE HYCLATE 100 MG in DEXTROSE 5% 100 ML IV SCH ×2 (07:54→20:50)
--- NOTE | 2021-09-15 09:04 | Surgery Progress Note ---
Date of Service September 15, 2021 Assessment & Plan (1) Duodenal ulcer: (2) Acute blood loss anemia: Plan: Results of yesterday's endoscopy as well as CT angiogram reviewed. Currently no acute surgical intervention indicated. We will sign off. Please call if we can assist in any way. (3) Diabetes mellitus, type II: Admission and Anticipated Discharge Date Admission Date: September 08, 2021 Subjective Patient resting comfortably. Results & Data ([facility]) Vital Signs (Past 12 Hours) Vital Signs Temp Pulse Pulse Resp BP Pulse Ox 09/15/21 06:57 70 09/15/21 00:50 70 09/14/21 22:40 36.8 C 63 16 133/74 95 PG Care Time/CCT Total # of Minutes Spent Total Time Spent with Patient: Total time spent is greater than 50% in coordination of care (as documented) at patient's floor/unit and/or counseling patient: Coding Level of Care Code 49626 Subseq Hosp Care Lvl 2 Diagnoses Duodenal ulcer K26.9 Acute blood loss anemia D62 Diabetes mellitus, type II E11.9
--- NOTE | 2021-09-15 10:57 | Gastroenterology Progress Note ---
Date of Service September 15, 2021 Assessment & Plan (1) Duodenal ulcer: Plan: 71 yo male with CVA (on ASA 325 mg and Plavix), AAA s/p endovascular repair (07/2017), COPD, HTN, HLD, and DM2 (baseline hgb 12) who takes meloxicam daily for joint swelling. Presented with syncope, abdominal pain, and n/v. 1) Upper GI bleed and acute blood loss anemia, likely secondary to PUD and NSAID use - slowing BMs, Hgb stable, likely no longer GI bleeding , hold on further endoscopy for now - repeat EGD without active bleeding and stable PUD without evidence of AEF on CTA (endoscopic clips on CT not near aorta), question if calin-pancreatic fat stranding is coming from endo-vascular repair but this extends into body of pancreas with calin-pancreatic fluid (not just near aorta) - no unifying diagnosis at this time. Hemosuccus pancreatitis would be rare etiology, would consider repeat imaging on follow up (MRI if possible to exclude tumor or chronic pancreatitis). - vascular surgery consult given cryptic nature of AEF - PPI BID for 8 weeks then daily there after - check stool h pylori pending - OK to restart Plavix today, evaluate role for aspirin (if can be d/c would decrease anti-platelet as well as NSAID use). - will arrange GI follow up in 2-4 weeks, consider MRI/MRCP to exclude tumor or chronic pancreatitis (2) Pancreatitis: Plan: 2) Pancreatitis - pain resolved, likely present on admission, would restart low fat diet - first episode with normal lipase, see above discussion - plesae obtain RUQ US and TG level - Etiology - no EtOH use, normal Ca and LFTs, no class I/II meds - outpatient follow up cross-sectional imaging given age>40 to exclude tumor (3) Acute upper GI bleed: Plan: - see above (4) Acute blood loss anemia: Plan: - see above Admission and Anticipated Discharge Date Admission Date: September 08, 2021 Subjective Patient with EGD yesterday without bleeding and unchanged findings. CTA overnight without evidence of AEF and surgery signed off this AM. CT with pancreatitis and calin-pancreatitis fluid. Last BM dark red with clots 2-3 PM yesterday. Minimal if any abdominal pain, hungry. Review of Systems Review of Systems: complete 14 point ROS is negative unless otherwise stated in above HPI. Physical Exam Physical Exam: NAD resting in bed comfortable Eyes: + anicteric sclerae; no conjunctival abnormality Respiratory: normal respiratory effort Cardiovascular: Rate/Rhythm: regular rate Extremities: no edema Gastrointestinal (Abdomen): normal bowel sounds, soft, nontender, no h epatosplenomegaly Skin: no rashes, warm and dry Neurologic: moves all extremities and awake Psychiatric: A+Ox3, euthymic affect Results & Data ([facility]) Vital Signs (Past 12 Hours) Vital Signs Pulse 09/15/21 06:57 70 09/15/21 00:50 70
--- NOTE | 2021-09-15 13:33 | Hospitalist Progress Note ---
Date of Service September 15, 2021 Assessment & Plan (1) Acute blood loss anemia: Plan: per Dr. Berkowitz's notes with addendum: s/p 1 unit pRBC 09/09 s/p 1 unit pRBC 09/10. Repeat H/H at 3pm. Transfuse if Hb<8 09/14 repeat EGD: no new bleeding; (+) clean based ulcers 09/15 no recurrence of GI bleed Hg stable 9 per GI: protonix BID, low fat diet, resume Plavix tomorrow CT angio abd/pelvis:negative for Aortoenteric fistula will consult Vascular Sx per GI recommendations (2) Duodenal ulcer: Plan: continue protonix drip CTA abd/pelvis requested by GI to evaluate for mesenteric ischemia was negative lactate elevated due to dehydration and active bleed Advance to clears 09/13 pathology report from EGD: FINAL DIAGNOSIS Duodenum, random, biopsy: - Duodenal mucosa with no diagnostic abnormality - Negative for histologic features of sprue - Negative for parasites - Negative for dysplasia and malignancy plan today per above CT chest showin. Alveolar opacity at the left lung base with air bronchograms characteristic of early pneumonia. 2. There is associated small left pleural effusion. 3. Interval development of edematous changes of the pancreas and peripancreatic fat suspicious for early acute pancreatitis. Lipase , LFTs: normal Persistent Leukocytosis, likely from PNA - CT chest: (+) L lower lobe pneumonia Cefepime + Doxycycline ordered - 2nd Blood culture: negative so far - WBC improved from 25k to 17k monitor - Peripheral smear pending Low K and Mg - replacement ongoing Trace Blood in the Urine - repeat as outpatient Plan: History of CVA -hold aspirin and plavix. 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 He does NOT have any cardiac stents - hold ASA and Plavix Depression Mood disorder -continue home medications NIDDM -hold metformin, corrective scale insulin for now DVT ppx SCDs plan of care discussed with patient in detail and at length all questions answered he is understanding, agreeable, comfortable with the plan of care Admission and Anticipated Discharge Date Admission Date: September 08, 2021 Subjective ff up for GI bleed, etc seen resting in bed, comfortable oriented states he feels fine overall denies abdominal pain, melena/hematochezia no cough, SOB no other symptoms Review of Systems Review of Systems: all noted and negative except for above Physical Exam Constitutional: General- oriented x 3, not in distress, speaks in sentences with no effort or accessory muscle use Eyes- anicteric Neck- no JVD Lungs- clear BS bilaterally, no rales/wheezes Heart- normal rate, regular rhythm; no murmurs Abdomen- normal bowel sounds, nondistended, soft, no tenderness Extremities- no pretibial edema, no calf tenderness Neuro- alert, oriented x 3; no gross focal neurologic deficits Skin- warm & dry Results & Data Results & Data ([facility]) Vital Signs (Past 12 Hours) Vital Signs Temp Pulse Pulse Resp BP Pulse Ox 09/15/21 11:45 36.6 C 61 18 122/68 95 09/15/21 06:57 70 all noted and reviewed including below
--- NOTE | 2021-09-15 15:25 | Ultrasound Report ---
US liver HISTORY: 71 years-old Male acute pancreatitis acute right upper quadrant abdominal pain. Acute pancr eatitis COMPARISON: CT abdomen and pelvis 09/14/2021 TECHNIQUE: Multiple real-time sonographic images of the abdominal right upper quadrant were obtained assessing grayscale appearance and color flow FINDINGS: Heterogeneity of the visualized pancreas which is partially obscured by bowel gas. Trace right pleura l effusion redemonstrated. Unremarkable liver measures up to 19 cm in length. Mild gallbladder disten tion with sludge. No shadowing cholelithiasis or gallbladder wall thickening. Trace pericholecystic f ree fluid. The common bile duct is normal measuring 5 mm. Sonographic Carreno sign reported as negativ e. Imaged right kidney is unremarkable without hydronephrosis. IMPRESSION: 1. Heterogeneity of the pancreas compatible with the patient's known acute pancreatitis. 2. Distended gallbladder with layering sludge. No cholelithiasis or gallbladder wall thickening. 3. Trace pleural effusions with trace abdominal free fluid, likely secondary to the aforementioned ac mike pancreatitis. 4. No biliary ductal dilation. ACT 112: Negative or not required by law. The above report was generated using voice recognition software. It may contain grammatical, syntax o r spelling errors. Electronically signed by: Uli Whitman M.D. 09/15/2021 3:23 PM
[2021-09-15] MEDS: AMITRIPTYLINE HCL 10 MG TAB PO SCH (20:42)
[2021-09-16] MEDS: CEFEPIME 2,000 MG in SYRINGE 0 ML IV SCH ×3 (05:04→21:09)
[2021-09-16 07:05] LABS: Basophils # (auto) 0.01 K/uL (0-0.2); Basophils % (auto) 0.1 %; Eosinophils # (auto) 0.22 K/uL (0-0.5); Eosinophils % (auto) 1.2 %; Hematocrit (blood only) 29.1 % (42-52); Hemoglobin 9.4 g/dL (14.0-18.0); Immature Granulocytes # (auto) 0.13 K/uL (0.00-0.02); Immature Granulocytes % (auto) 0.7 %; Lymphocytes # (auto) 1.13 K/uL (1.2-3.4); Mean Corpuscular Hemoglobin 25.8 pg (25-34); Mean Corpuscular Hgb Conc 32.3 g/dL (32-36); Mean Corpuscular Volume 79.7 fL (80-100); Mean Platelet Volume 10.1 fL (7.4-10.4); Monocytes # (auto) 2.18 K/uL (0.11-0.59); Monocytes % (auto) 11.6 %; Neutrophils # (auto) 15.09 K/uL (1.4-6.5); Neutrophils % (auto) 80.4 %; Platelet Count 427 K/uL (130-400); RDW Standard Deviation 58.8 fL (36.4-46.3); Red Blood Count 3.65 M/uL (4.7-6.1); White Blood Count 18.76 K/uL (4.8-10.8)
[2021-09-16 07:28] LABS: BUN Creatinine Ratio 14.9 (10-20); Calcium 7.7 mg/dl (8.5-10.1); Creatinine Clr Calc Pharmacy 99.3 ml/min; Est GFR (African American) 112.8 ml/min; Est GFR (Non-African American) 97.4 ml/min; Potassium 3.4 mmol/L (3.5-5.1)
[2021-09-16 07:35] LABS: Anisocytosis Present; Polychromasia 1+; Toxic Granulation 1+
[2021-09-16] MEDS: PANTOprazole 40 MG in SYRINGE 0 ML IV SCH (08:17)
[2021-09-16] MEDS: PROPRANOLOL HCL LA 80 MG CAPCR PO SCH (08:18)
[2021-09-16] MEDS: CEROVITE ADV FORMULA TAB PO SCH (08:18)
[2021-09-16] MEDS: FLUoxetine HCL 20 MG CAP PO SCH (08:18)
[2021-09-16] MEDS: CALCIUM CARBONATE 500 MG CHEWABLE TAB PO SCH ×3 (08:18→21:10)
[2021-09-16] MEDS: buPROPion XL 150 MG TABCR PO SCH (08:19)
[2021-09-16] MEDS: SUCRALFATE 1 GM/10 ML UDC PO SCH ×4 (08:19→21:09)
[2021-09-16] MEDS: ATORVASTATIN 40 MG TAB PO SCH (08:19)
[2021-09-16] MEDS: D5NSS + 20MEQ KCL 20 MEQ/1,000 ML BAG IV SCH (08:25)
[2021-09-16] MEDS: INSULIN ASPART PER UNIT SC SCH ×4 (08:26→20:20)
[2021-09-16] MEDS: DOXYCYCLINE HYCLATE 100 MG in DEXTROSE 5% 100 ML IV SCH (08:27)
[2021-09-16] MEDS ORDERED: POTASSIUM CHLORIDE 20 MEQ/15 ML UDC PO STA (08:59)
--- NOTE | 2021-09-16 10:11 | Gastroenterology Progress Note ---
Date of Service September 16, 2021 Assessment & Plan (1) Duodenal ulcer: Plan: 71 yo male with CVA (on ASA 325 mg and Plavix), AAA s/p endovascular repair (07/2017), COPD, HTN, HLD, and DM2 (baseline hgb 12) who takes meloxicam daily for joint swelling. Presented with syncope, abdominal pain, and n/v. Upper GI bleeding with acute blood loss anemia: Likely secondary to peptic ulcer disease and NSAID use. Bowel movements without evidence of melena or hematochezia. Hemoglobin stable. A repeat ED was performed without active bleeding and stable PUD. Vascular surgery was consulted given cryptic nature of a EF. Recommend continued PPI twice daily x8 weeks and then daily. H pylori not appear to have been collected. Will need outpatient GI follow-up in 2 to 4 weeks with consideration of MRI/MRCP to exclude tumor/chronic pancreatitis. Pancreatitis: Patient has continuation of epigastric/right upper quadrant pain. Started on solid foods today. Right upper quadrant ultrasound demonstrated acute pancreatitis with distended gallbladder and layering sludge without cholelithiasis or gallbladder wall thickening. No biliary ductal dilatation was noted. Outpatient follow-up as recommended above. Case reviewed with Dr. Mcmahon. Please refer to supervising physician addendum for further recommendations. I have spent 20 minutes of discrete time performing the activities of this visit which include but are not limited to review of the medical record, obtaining a history, physical exam, and entering information in the electronic record. (2) Abdominal pain: (3) Pancreatitis: (4) Acute blood loss anemia: Admission and Anticipated Discharge Date Admission Date: September 08, 2021 Supervising Physician Co-Signing Physician Notes I have seen and examined the patient. I agree with note above by DARNELL Lozano except as noted below. HPI Vascular does not feel there is an aortoenteric fistula. Pt states stools black this am. Abd pain imroved. PE Abdomen pos bs, soft, no guarding nor rebound A/P DU--continue PPI, chec stool for H.pylori, recommend outpt documentation of healing of ulcer disease pancreatitis--improving recommend outpt MRI/MRCP elevated WBC worse today but better than admit--pt on cefipime for pneumonia As the supervising physician, I , Kayden Mcmahon MD have spent 16 minutes of discrete time performing the activities of this visit which include but not limited to review of the medical records, obtaining a history, physical exam and entering information in the electronic record. DARNELL Lozano has reported spending 20 minutes of discrete time with the activities of this visit. Subjective Patient awake alert and oriented sitting in his bed this morning. He looks much better than he did on Thursday when I most recently saw him. He is tolerating solid foods. He has some continued upper abdominal pain. Reports it is a 5 out of 10 when she sitting at rest. 8 out of 10 with palpation. Bowel movement this morning. No melena or hematochezia. He reports he is passing flatus without difficulty. Denies any nausea or vomiting. Voices no other complaints today. Review of Systems Review of Systems: All systems reviewed & are unremarkable except as noted in Subjective Physical Exam Gastrointestinal (Abdomen): Inspection/Auscultation: abdomen normal to inspection and normal bowel sounds; abdomen not distended Percussion/Palpation: + abdomen tender (epigastric/RUQ pain) and abdomen soft; no guarding and abdomen not rigid Results & Data ([facility]) Vital Signs (Past 12 Hours) Vital Signs Temp Pulse Pulse Pulse Resp BP BP 09/16/21 08:16 36.9 C 55 L 18 170/80 H 177/77 H 09/16/21 07:51 70 09/16/21 04:49 152/68 H 09/16/21 03:19 36.8 C 71 18 172/69 H 09/16/21 01:18 77 09/16/21 00:01 77 154/66 H 09/15/21 23:33 36.9 C 74 18 183/76 H Pulse Ox 09/16/21 08:16 93 09/16/21 07:51 09/16/21 04:49 09/16/21 03:19 93 09/16/21 01:18 09/16/21 00:01 09/15/21 23:33 95 Laboratory Results Laboratory Results - last 24 hr 09/15/21 09/15/21 09/15/21 06:44 11:31 16:34 WBC RBC Hgb Hct MCV MCH MCHC RDW Std Deviation RDW Coeff of Ahrjeet Plt Count MPV Immature Gran % (Auto) Neut % (Auto) Lymph % (Auto) [place] % (Auto) Eos % (Auto) Baso % (Auto) Neut # (Auto) Lymph # (Auto) [place] # (Auto) Eos # (Auto) Baso # (Auto) Immature Gran # (Auto) Toxic Granulation Polychromasia Anisocytosis Sodium Potassium Chloride Carbon Dioxide Anion Gap BUN Creatinine Est Cr Clr Drug Dosing Est GFR ( Amer) Est GFR (Non-Af Amer) BUN/Creatinine Ratio Glucose POC Glucose 130 H 106 H Calcium Triglycerides 79 09/15/21 09/16/21 09/16/21 20:45 06:09 06:09 WBC 18.76 H RBC 3.65 L Hgb 9.4 L Hct 29.1 L MCV 79.7 L MCH 25.8 MCHC 32.3 RDW Std Deviation 58.8 H RDW Coeff of Harjeet 20.0 H Plt Count 427 H MPV 10.1 Immature Gran % (Auto) 0.7 Neut % (Auto) 80.4 Lymph % (Auto) 6.0 [place] % (Auto) 11.6 Eos % (Auto) 1.2 Baso % (Auto) 0.1 Neut # (Auto) 15.09 H Lymph # (Auto) 1.13 L [place] # (Auto) 2.18 H Eos # (Auto) 0.22 Baso # (Auto) 0.01 Immature Gran # (Auto) 0.13 H Toxic Granulation 1+ Polychromasia 1+ Anisocytosis Present Sodium 137 Potassium 3.4 L Chloride 105 Carbon Dioxide 25 Anion Gap 7 BUN 10 Creatinine 0.67 Est Cr Clr Drug Dosing 99.3 Est GFR ( Amer) 112.8 Est GFR (Non-Af Amer) 97.4 BUN/Creatinine Ratio 14.9 Glucose 122 H POC Glucose 137 H Calcium 7.7 L Triglycerides 09/16/21 07:41 WBC RBC Hgb Hct MCV MCH MCHC RDW Std Deviation RDW Coeff of Harjeet Plt Count MPV Immature Gran % (Auto) Neut % (Auto) Lymph % (Auto) [place] % (Auto) Eos % (Auto) Baso % (Auto) Neut # (Auto) Lymph # (Auto) [place] # (Auto) Eos # (Auto) Baso # (Auto) Immature Gran # (Auto) Toxic Granulation Polychromasia Anisocytosis Sodium Potassium Chloride Carbon Dioxide Anion Gap BUN Creatinine Est Cr Clr Drug Dosing Est GFR ( Amer) Est GFR (Non-Af Amer) BUN/Creatinine Ratio Glucose POC Glucose 118 H Calcium Triglycerides Diagnostic Findings Liver Ultrasound 09/15/21 11:26 US liver HISTORY: 71 years-old Male acute pancreatitis acute right upper quadrant abdominal pain. Acute pancreatitis COMPARISON: CT abdomen and pelvis 09/14/2021 TECHNIQUE: Multiple real-time sonographic images of the abdominal right upper quadrant were obtained assessing grayscale appearance and color flow FINDINGS: Heterogeneity of the visualized pancreas which is partially obscured by bowel gas. Trace right pleural effusion redemonstrated. Unremarkable liver measures up to 19 cm in length. Mild gallbladder distention with sludge. No shadowing cholelithiasis or gallbladder wall thickening. Trace pericholecystic free fluid. The common bile duct is normal measuring 5 mm. Sonographic Carreno sign reported as negative. Imaged right kidney is unremarkable without hydronephrosis. IMPRESSION: 1. Heterogeneity of the pancreas compatible with the patient's known acute pancreatitis. 2. Distended gallbladder with layering sludge. No cholelithiasis or gallbladder wall thickening. 3. Trace pleural effusions with trace abdominal free fluid, likely secondary to the aforementioned acute pancreatitis. 4. No biliary ductal dilation. ACT 112: Negative or not required by law. The above report was generated using voice recognition software. It may contain grammatical, syntax or spelling errors. Electronically signed by: Uli Whitman M.D. 09/15/2021 3:23 PM
--- NOTE | 2021-09-16 10:37 | Consultation ---
Date of Consultation September 16, 2021 Assessment & Plan (1) History of AAA (abdominal aortic aneurysm) repair: Pt imaging reviewed by Dr Treviño. Aorta is no longer aneurysmal. No indications of AEF at this time. No vascular surgical intervention recommended at this time. Recommend he continue follow ups with his vascular surgeon at [facility]. Discussed with pt as well. Please call if needed. History of Present Illness Reason for Consultation: possible AEF Attending Physician: Chema Retana MD History of Present Illness 71 yo m with hx of HTN, CHARLES, DMII, DJD, depression, dyslipidemia, CVA, AAA s/p EVAR, gastric ulcers s/p EGD with clips, admitted with acute GI bleed, seen in consultation today for possible AEF. Pt states he thinks his AAA repair was in 2018 at [facility], shortly after his gastric ulcer clipping, also at [facility]. States he is seen by vascular surgery at [facility] annually, and is actually due for his appt soon. Denies any hx of bacteremia or AEF at the time of repair. Does not remember how large his AAA was at time of repair. Pt denies abd pain presently, but does admit fatigue. Denies SCHAEFFER, fever, chest pain, SOB, N/V, rest pain, claudication, other complaints. EGD demonstrated multiple duodenal ulcerations. Pt has had total of 3 U PRBC since admission, and Hgb appears stable today. CTA abd/pelvis demonstrates patent aortobiiliac AAA repair. Allergies Allergy/AdvReac Type Severity Reaction Status Date / Time tetracycline Allergy Mild RASH Verified 09/09/21 10:19 Home Medications Medication Instructions Recorded Confirmed Type albuterol sulfate 90 mcg/actuation 2 puff INHALATION Q4 PRN 09/08/21 09/08/21 History aerosol inhaler amitriptyline 10 mg tablet 10 mg PO HS 09/08/21 09/08/21 History aspirin 325 mg tablet 325 mg PO DAILY 09/08/21 09/08/21 History atorvastatin 40 mg tablet 40 mg PO DAILY 09/08/21 09/08/21 History bupropion HCl 150 mg 24 hr tablet, 150 mg PO DAILY 09/08/21 09/08/21 History extended release calcium carbonate 500 mg calcium 500 mg PO TID 09/08/21 09/08/21 History (1,250 mg) chewable tablet clopidogrel 75 mg tablet 75 mg PO QAM 09/08/21 09/08/21 History fluoxetine 20 mg capsule 20 mg PO DAILY 09/08/21 09/08/21 History fluoxetine 40 mg capsule 40 mg PO DAILY 09/08/21 09/08/21 History lorazepam 1 mg tablet 1 mg PO HS PRN 09/08/21 09/08/21 History meloxicam 15 mg tablet 15 mg PO DAILY 09/08/21 09/08/21 History metformin 500 mg tablet 500 mg PO BID 09/08/21 09/08/21 History omudozrz-jiw-tszmz acid 0.4 1 tab PO DAILY 09/08/21 09/08/21 History mg-lycopene 300 mcg-lutein 250 mcg tablet (Centrum Silver) pantoprazole 40 mg tablet,delayed 40 mg PO DAILYBB 09/08/21 09/08/21 History release propranolol 160 mg capsule,24 160 mg PO DAILY 09/08/21 09/08/21 History hr,extended release rizatriptan 10 mg tablet 10 mg PO UD PRN 09/08/21 09/08/21 History tramadol 50 mg tablet 50 mg PO Q6 PRN 09/08/21 09/08/21 History Patient History Medical History Abdominal pain, acute, epigastric Acute upper GI bleed Depression Diabetes mellitus, type II DJD (degenerative joint disease) DJD (degenerative joint disease), multiple sites Dyslipidemia Gastric outlet obstruction H/O asbestos exposure H/O migraine with aura H/O restrictive lung disease History of CVA (cerebrovascular accident) "05/2015", no residual deficit History of tobacco abuse HTN (hypertension) Nausea & vomiting Obstructive sleep apnea on CPAP Slurred speech Syncope and collapse Surgical History (Updated 09/16/21 @ 10:43 by Gwen Wray PA-C) History of AAA (abdominal aortic aneurysm) repair History of colonoscopy History of lumbar laminectomy "2000,2001,2004,2006" History of right hip replacement "01/2015" Social History Smoking Status: Former smoker Smoking End Date: Pt. was former 1 PPD smoker/quit 8 years ago; Second Hand Exposure: No; Tobacco Cessation Education Requested by Patient: No Hx Alcohol Use: No Hx Substance Use: No Preferred Language: Lebanese Communication Ability: Impaired Chief Risk Officer Required: No Beliefs That Will Affect Care: None Current Living Situation: Spouse Current Living Situation Comment: Lives w/ Other Information That Helps Us Care for You: No Feels Safe at Home: Yes Safety Concerns: Feels Safe At This Time Assistive Devices: Cane and Glasses Assistive Devices Comment: Pt. states he uses cane at home Review of Systems Review of Systems: All systems reviewed & are unremarkable except as noted in HPI & below Physical Exam Constitutional: WD/WN, vitals as above cooperative and comfortable; not in distress ENMT: Ears: no hearing impairment Neck: trachea midline Respiratory: normal respiratory effort, lungs clear to auscultation Auscultation: + diminished lung sounds Cardiovascular: Rate/Rhythm: regular rate and regular rhythm Vessels: femoral pulses present, posterior tibial pulses present, dorsalis pedis pulses present and radial pulses present; + abnormal peripheral pulses Extremities: normal capillary refill; no edema Gastrointestinal (Abdomen): Inspection/Auscultation: abdomen normal to inspection and normal bowel sounds; abdomen not distended Percussion/Palpation: + abdomen tender and abdomen soft Musculoskeletal: no cyanosis or clubbing, extremities motor strength 5/5 Skin: no rashes, warm and dry Neurologic: moves all extremities and awake; no focal motor deficits and not confused Psychiatric: A+Ox3, euthymic affect Results & Data ([facility]) Vital Signs (Past 12 Hours) Vital Signs Temp Pulse Pulse Pulse Resp BP BP 09/16/21 08:16 36.9 C 55 L 18 170/80 H 177/77 H 09/16/21 07:51 70 09/16/21 04:49 152/68 H 09/16/21 03:19 36.8 C 71 18 172/69 H 09/16/21 01:18 77 09/16/21 00:01 77 154/66 H 09/15/21 23:33 36.9 C 74 18 183/76 H Pulse Ox 09/16/21 08:16 93 09/16/21 07:51 09/16/21 04:49 09/16/21 03:19 93 09/16/21 01:18 09/16/21 00:01 09/15/21 23:33 95
[2021-09-16] MEDS: CLOPIDOGREL BISULFATE 75 MG TAB PO SCH (10:45)
--- NOTE | 2021-09-16 11:33 | Hospitalist Progress Note ---
Date of Service September 16, 2021 Assessment & Plan (1) Acute blood loss anemia: Plan: per Dr. Berkowitz's notes with addendum: Received total of 3 units packed RBC since admission Hemoglobin remaining stable around 9 09/14 Patient reporting increased epigastric pain repeat EGD: no new bleeding; (+) clean based ulcers 09/16 no recurrence of GI bleed Hg stable 9 since yesterday Resume Plavix cautiously per GI: protonix BID, low fat diet, resume Plavix CT angio abd/pelvis:negative for Aortoenteric fistula Consulted vascular Sx per GI recommendations (2) Duodenal ulcer: Plan: continue protonix drip CTA abd/pelvis requested by GI to evaluate for mesenteric ischemia was negative lactate elevated due to dehydration and active bleed Advance to clears 09/13 pathology report from EGD: FINAL DIAGNOSIS Duodenum, random, biopsy: - Duodenal mucosa with no diagnostic abnormality - Negative for histologic features of sprue - Negative for parasites - Negative for dysplasia and malignancy plan today per above CT chest showin. Alveolar opacity at the left lung base with air bronchograms characteristic of early pneumonia. 2. There is associated small left pleural effusion. 3. Interval development of edematous changes of the pancreas and peripancreatic fat suspicious for early acute pancreatitis. Lipase , LFTs: normal Persistent Leukocytosis, likely from PNA - CT chest: (+) L lower lobe pneumonia Cefepime + Doxycycline ordered - 2nd Blood culture: negative so far - WBC improved from 25k to 18 K monitor - Peripheral smear The peripheral smear is remarkable for a microcytic anemia and leukocytosis. The microcytic anemia is likely related to acute blood loss and iron deficiency. The leukocytosis appears reactive and is likely related to the patient's pneumonia. There is no evidence of hematolymphoid neoplasia. Low K and Mg -Continue replacement Trace Blood in the Urine - repeat as outpatient Plan: History of CVA -hold aspirin and plavix. 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 He does NOT have any cardiac stents -Plavix resumed Need to discuss with neurology as to necessity for continuation of aspirin Depression Mood disorder -continue home medications NIDDM -hold metformin, corrective scale insulin for now DVT ppx SCDs Disposition Continue PT and OT evaluation plan of care discussed with patient in detail and at length all questions answered he is understanding, agreeable, comfortable with the plan of care Admission and Anticipated Discharge Date Admission Date: September 08, 2021 Subjective Follow-up for upper GI bleed, pneumonia, etc. Seen sitting up in bed, watching TV, comfortable, in good spirit States he feels overall improved today Had mild epigastric pain after breakfast No nausea vomiting No melena or hematochezia since yesterday No cough, shortness of breath, chest pain, palpitations, dizziness No other new symptom Review of Systems Review of Systems: all noted and negative except for above Physical Exam Physical Exam: General- oriented x 3, not in distress, speaks in sentences with no effort or accessory muscle use Brighter Eyes- anicteric Neck- no JVD Lungs- clear breath sounds, no crackles or wheezing bilaterally Heart- normal rate, regular rhythm; no murmurs Abdomen- normal bowel sounds, nondistended, soft, very mild epigastric tenderness Extremities- no pretibial edema, no calf tenderness Neuro- alert, oriented x 3; no gross focal neurologic deficits Skin- warm & dry Results & Data Results & Data ([facility]) Vital Signs (Past 12 Hours) Vital Signs Temp Pulse Pulse Pulse Resp BP BP 09/16/21 08:16 36.9 C 55 L 18 170/80 H 177/77 H 09/16/21 07:51 70 09/16/21 04:49 152/68 H 09/16/21 03:19 36.8 C 71 18 172/69 H 09/16/21 01:18 77 09/16/21 00:01 77 154/66 H 09/15/21 23:33 36.9 C 74 18 183/76 H Pulse Ox 09/16/21 08:16 93 09/16/21 07:51 09/16/21 04:49 09/16/21 03:19 93 09/16/21 01:18 09/16/21 00:01 09/15/21 23:33 95 all noted and reviewed including below
[2021-09-16 13:00] LABS: Ferritin 174.6 ng/ml (8-388)
[2021-09-16] MEDS: ACETAMINOPHEN 325 MG TAB PO PRN ×2 (13:02→13:29)
[2021-09-16 13:07] LABS: Iron < 10 mcg/dl (35-175); Transferrin 162 mg/dl (200-360)
[2021-09-16] MEDS: ADVANCED PROBIOTIC 1250 MG CAPSULE PO SCH (13:29)
[2021-09-16] MEDS ORDERED: HYDROCODONE/ACETAMOPHEN 5/325MG TAB PO PRN (16:05)
[2021-09-16] MEDS ORDERED: IRON SUCROSE 150 MG in SODIUM CHLORIDE 0.9% 250 ML IV ONE (16:30)
[2021-09-16] MEDS: AMITRIPTYLINE HCL 10 MG TAB PO SCH (21:09)
[2021-09-16] MEDS: DOXYCYCLINE HYCLATE 100 MG CAP PO SCH (21:09)
[2021-09-16] MEDS: PANTOprazole 40 MG TAB PO SCH (21:10)
[2021-09-17] MEDS: CEFEPIME 2,000 MG in SYRINGE 0 ML IV SCH ×3 (06:03→20:47)
[2021-09-17 07:16] LABS: Basophils # (auto) 0.02 K/uL (0-0.2); Basophils % (auto) 0.1 %; Eosinophils # (auto) 0.26 K/uL (0-0.5); Eosinophils % (auto) 1.7 %; Hemoglobin 9.3 g/dL (14.0-18.0); Immature Granulocytes # (auto) 0.17 K/uL (0.00-0.02); Immature Granulocytes % (auto) 1.1 %; Lymphocytes # (auto) 1.11 K/uL (1.2-3.4); Lymphocytes % (auto) 7.1 %; Mean Corpuscular Hemoglobin 24.8 pg (25-34); Mean Platelet Volume 10.6 fL (7.4-10.4); Monocytes # (auto) 1.75 K/uL (0.11-0.59); Monocytes % (auto) 11.2 %; Neutrophils # (auto) 12.33 K/uL (1.4-6.5); Neutrophils % (auto) 78.8 %; Platelet Count 422 K/uL (130-400); RDW Coefficient of Variation 20.1 % (11.5-14.5); RDW Standard Deviation 59.1 fL (36.4-46.3); Red Blood Count 3.75 M/uL (4.7-6.1); White Blood Count 15.64 K/uL (4.8-10.8)
[2021-09-17 07:34] LABS: Anisocytosis Present; Polychromasia 1+; Toxic Granulation 1+
[2021-09-17 07:39] LABS: BUN Creatinine Ratio 15.9 (10-20); Calcium 8.1 mg/dl (8.5-10.1); Creatinine Clr Calc Pharmacy 105.6 ml/min; Est GFR (African American) 115.7 ml/min; Est GFR (Non-African American) 99.8 ml/min; Potassium 3.7 mmol/L (3.5-5.1)
[2021-09-17] MEDS: PROMETHAZINE HCL 12.5 MG in SODIUM CHLORIDE 0.9% 50 ML IV PRN (07:55)
[2021-09-17 08:04] LABS: Folate (Folic Acid) > 22.30 ng/ml (>5.38); Vitamin B12 503 pg/ml (180-914)
[2021-09-17] MEDS: INSULIN ASPART PER UNIT SC SCH ×4 (09:15→20:47)
[2021-09-17] MEDS: buPROPion XL 150 MG TABCR PO SCH (09:16)
[2021-09-17] MEDS: CEROVITE ADV FORMULA TAB PO SCH (09:16)
[2021-09-17] MEDS: ADVANCED PROBIOTIC 1250 MG CAPSULE PO SCH (09:16)
[2021-09-17] MEDS: CLOPIDOGREL BISULFATE 75 MG TAB PO SCH (09:16)
[2021-09-17] MEDS: FLUoxetine HCL 20 MG CAP PO SCH (09:16)
[2021-09-17] MEDS: PANTOprazole 40 MG TAB PO SCH ×2 (09:16→20:48)
[2021-09-17] MEDS: DOXYCYCLINE HYCLATE 100 MG CAP PO SCH ×2 (09:16→20:49)
[2021-09-17] MEDS: PROPRANOLOL HCL LA 80 MG CAPCR PO SCH (09:17)
[2021-09-17] MEDS: SUCRALFATE 1 GM/10 ML UDC PO SCH ×4 (09:18→20:47)
[2021-09-17] MEDS: ATORVASTATIN 40 MG TAB PO SCH (10:09)
[2021-09-17] MEDS: CALCIUM CARBONATE 500 MG CHEWABLE TAB PO SCH ×3 (10:10→20:49)
--- NOTE | 2021-09-17 12:52 | Gastroenterology Progress Note ---
Date of Service September 17, 2021 Assessment & Plan (1) Duodenal ulcer: Plan: DU--continue PPI, check stool for H.pylori, recommend outpt documentation of healing of ulcer disease pancreatitis--improving recommend outpt MRI/MRCP elevated WBC improved today but better than admit--pt on cefipime for pneumonia I, Kayden Mcmahon MD have spent 10 minutes of discrete time performing the activities of this visit which include but are not limited to review of the [facility], obtaining a history, physical exam, and entering information in the electronic record. Admission and Anticipated Discharge Date Admission Date: September 08, 2021 Subjective CC black stool HPI Pt states abd pain essentially resolved. . Had small black stool this am. Physical Exam Gastrointestinal (Abdomen): normal bowel sounds, soft, nontender, no hepatosplenomegaly Results & Data ([facility]) Vital Signs (Past 12 Hours) Vital Signs Temp Pulse Pulse Resp BP Pulse Ox 09/17/21 11:12 36.8 C 77 19 149/69 H 96 09/17/21 07:19 37.1 C 70 18 163/73 H 92 09/17/21 04:29 64 09/17/21 02:52 36.7 C 71 18 158/67 H 90
--- NOTE | 2021-09-17 17:34 | Hospitalist Progress Note ---
Date of Service September 17, 2021 Assessment & Plan (1) Acute blood loss anemia: Plan: per Dr. Berkowitz's notes with addendum: Received total of 3 units packed RBC since admission Hemoglobin remaining stable around 9 09/14 Patient reporting increased epigastric pain repeat EGD: no new bleeding; (+) clean based ulcers 09/16 Plavix resumed per GI recommendation CT angio abd/pelvis:negative for Aortoenteric fistula Consulted vascular Sx per GI recommendations: Aorta is no longer aneurysmal, no indication of aortoenteric fistula at this time, no vascular surgical intervention recommended at this time 09/17 no recurrence of GI bleed Hg stable 9 x 2 days Continue to monitor CBC Protonix twice daily Will need to follow-up with GI as an outpatient Check stool for H. pylori: Pending (2) Duodenal ulcer: Plan: pathology report from EGD: FINAL DIAGNOSIS Duodenum, random, biopsy: - Duodenal mucosa with no diagnostic abnormality - Negative for histologic features of sprue - Negative for parasites - Negative for dysplasia and malignancy plan today per above Possible acute pancreatitis Seen on repeat CT chest and CT abdomen pelvis Lipase level remained normal all throughout Can also explain patient's persistent abdominal pain after EGD GI recommending outpatient MRI/MRCP Persistent Leukocytosis, likely from PNA - CT chest: (+) L lower lobe pneumonia CT chest showin. Alveolar opacity at the left lung base with air bronchograms characteristic of early pneumonia. 2. There is associated small left pleural effusion. 3. Interval development of edematous changes of the pancreas and peripancreatic fat suspicious for early acute pancreatitis. Cefepime + Doxycycline day 6 out of 7 - 2nd Blood culture: negative so far - WBC improved from 25k to 15 K monitor - Peripheral smear The peripheral smear is remarkable for a microcytic anemia and leukocytosis. The microcytic anemia is likely related to acute blood loss and iron deficiency. The leukocytosis appears reactive and is likely related to the patient's pneumonia. There is no evidence of hematolymphoid neoplasia. Low K and Mg -Continue replacement Trace Blood in the Urine - repeat as outpatient Plan: History of CVA -hold aspirin and plavix. 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 He does NOT have any cardiac stents -Plavix resumed Depression Mood disorder -continue home medications NIDDM -hold metformin, corrective scale insulin for now DVT ppx SCDs Disposition Continue PT and OT: Recommending rehab plan of care discussed with patient in detail and at length all questions answered he is understanding, agreeable, comfortable with the plan of care Admission and Anticipated Discharge Date Admission Date: September 08, 2021 Subjective Follow-up for GI bleed from duodenal ulcers, pneumonia, etc. Seen sitting up in bed, comfortable, in good spirits States he feels improved overall Minimal abdominal discomfort No melena or hematochezia, nausea vomiting No cough, shortness of breath No other symptom Review of Systems Review of Systems: all noted and negative except for above Physical Exam Physical Exam: General- oriented x 3, not in distress, speaks in sentences with no effort or accessory muscle use Eyes- anicteric Neck- no JVD Lungs- clear breath sounds bilaterally, no wheezing or crackles Heart- normal rate, regular rhythm; no murmurs Abdomen- normal bowel sounds, nondistended, soft, nontender Extremities- no pretibial edema, no calf tenderness Neuro- alert, oriented x 3; no gross focal neurologic deficits Skin- warm & dry Results & Data Results & Data ([facility]) Vital Signs (Past 12 Hours) Vital Signs Temp Pulse Pulse Resp BP BP Pulse Ox 09/17/21 16:01 36.9 C 73 18 124/71 98 09/17/21 15:47 68 09/17/21 11:12 36.8 C 77 19 149/69 H 96 09/17/21 07:19 37.1 C 70 18 163/73 H 92 09/17/21 07:00 68 all noted and reviewed including below
[2021-09-17] MEDS: AMITRIPTYLINE HCL 10 MG TAB PO SCH (20:48)
[2021-09-18] MEDS: CEFEPIME 2,000 MG in SYRINGE 0 ML IV SCH ×3 (05:20→21:51)
[2021-09-18 07:35] LABS: Basophils # (auto) 0.01 K/uL (0-0.2); Basophils % (auto) 0.1 %; Eosinophils # (auto) 0.22 K/uL (0-0.5); Eosinophils % (auto) 1.6 %; Hematocrit (blood only) 29.8 % (42-52); Hemoglobin 9.4 g/dL (14.0-18.0); Immature Granulocytes # (auto) 0.15 K/uL (0.00-0.02); Immature Granulocytes % (auto) 1.1 %; Lymphocytes # (auto) 1.47 K/uL (1.2-3.4); Mean Corpuscular Hemoglobin 25.4 pg (25-34); Mean Corpuscular Hgb Conc 31.5 g/dL (32-36); Mean Corpuscular Volume 80.5 fL (80-100); Mean Platelet Volume 9.6 fL (7.4-10.4); Monocytes # (auto) 1.28 K/uL (0.11-0.59); Monocytes % (auto) 9.6 %; Neutrophils # (auto) 10.22 K/uL (1.4-6.5); Neutrophils % (auto) 76.6 %; Platelet Count 427 K/uL (130-400); RDW Coefficient of Variation 20.1 % (11.5-14.5); RDW Standard Deviation 59.6 fL (36.4-46.3); White Blood Count 13.35 K/uL (4.8-10.8)
[2021-09-18 07:54] LABS: BUN Creatinine Ratio 15.9 (10-20); Calcium 8.2 mg/dl (8.5-10.1); Creatinine Clr Calc Pharmacy 105.6 ml/min; Est GFR (African American) 115.7 ml/min; Est GFR (Non-African American) 99.8 ml/min; Potassium 3.7 mmol/L (3.5-5.1)
[2021-09-18] MEDS: PANTOprazole 40 MG TAB PO SCH ×2 (08:01→20:01)
[2021-09-18] MEDS: SUCRALFATE 1 GM/10 ML UDC PO SCH ×4 (08:01→20:01)
[2021-09-18] MEDS: CALCIUM CARBONATE 500 MG CHEWABLE TAB PO SCH ×4 (08:01→20:02)
[2021-09-18] MEDS: ADVANCED PROBIOTIC 1250 MG CAPSULE PO SCH (08:02)
[2021-09-18] MEDS: INSULIN ASPART PER UNIT SC SCH ×4 (08:02→22:07)
[2021-09-18] MEDS: CLOPIDOGREL BISULFATE 75 MG TAB PO SCH (08:02)
[2021-09-18] MEDS: FLUoxetine HCL 20 MG CAP PO SCH (08:02)
[2021-09-18] MEDS: PROPRANOLOL HCL LA 80 MG CAPCR PO SCH (08:02)
[2021-09-18] MEDS: CEROVITE ADV FORMULA TAB PO SCH (08:02)
[2021-09-18] MEDS: buPROPion XL 150 MG TABCR PO SCH (08:02)
[2021-09-18] MEDS: DOXYCYCLINE HYCLATE 100 MG CAP PO SCH ×2 (08:02→20:01)
[2021-09-18] MEDS: ATORVASTATIN 40 MG TAB PO SCH (08:02)
[2021-09-18 08:31] LABS: Hypochromasia Present; Ovalocytes 1+
--- NOTE | 2021-09-18 15:16 | Gastroenterology Progress Note ---
Date of Service September 18, 2021 Assessment & Plan (1) Duodenal ulcer: Plan: GI bleeding pancreatitis Pt doing well. Bleeding seems to have stopped. Continue protonix. Recommend EGD as outpt in 6-8 weeks to document healing. Recommend pancreas imaging as outpt also. IKayden MD have spent 12 minutes of discrete time performing the activities of this visit which include but are not limited to review of the medical record, obtaining a history, physical exam, and entering information in the electronic record. Admission and Anticipated Discharge Date Admission Date: September 08, 2021 Subjective CC f/u GI bleeding HPI Pt denies abdominal pain. States had brown stool today. Results & Data ([facility]) Vital Signs (Past 12 Hours) Vital Signs Temp Pulse Pulse Resp BP BP Pulse Ox 09/18/21 14:48 36.7 C 62 20 154/77 H 95 09/18/21 11:09 36.5 C 72 20 108/66 97 09/18/21 07:53 36.9 C 65 20 167/79 H 96 09/18/21 07:00 62 09/18/21 04:00 36.8 C 79 20 154/70 H 94
--- NOTE | 2021-09-18 17:18 | Hospitalist Progress Note ---
Date of Service September 18, 2021 Assessment & Plan (1) Duodenal ulcer: (2) Acute blood loss anemia: Plan: #. Acute blood loss anemia #. Duodenal ulcers Patient is status post 3 unit PRBC, hemoglobin stable around 9 Patient denies any nausea/vomiting/belly pain/headache/dizziness. 09/09 EGD: Nonbleeding duodenal ulcer with visible vessel status post injection and clips placed. Duodenal mucosa biopsied. 09/14 EGD [after persistent epigastric pain]: Prior clips redemonstrated, few nonbleeding superficial duodenal ulcer with clean ulcer base in the first part of duodenum and in the second part of duodenum. --> pathology negative for s prue/parasites/dysplasia or malignancy. 09/14 CTAP: No evidence for aortoenteric fistula. Vascular surgery evaluated: Aorta is no longer aneurysmal, no indication of intervention at this time. Avoid NSAIDs, continue with PPI. Plavix resumed. Follow-up with GI as an outpatient, EGD in 6 to 8 weeks to document healing, pancreatic imaging as an outpatient. #. Possible acute pancreatitis Seen on repeat CT chest and CT abdomen pelvis though lipase level WNL throughout. GI recommending outpatient MRI/MRCP Patient tolerating diet, continue to monitor. #. Persistent leukocytosis, likely from pneumonia CT chest suggestive of left lower lobe pneumonia 09/09 and 09/12 blood cultures negative for 5 days. Continue with cefepime and doxycycline Patient afebrile, WBC trending down. #. Trace Blood in the Urine - repeat UA as outpatient - Hb stable #. Other chronic medical conditions: History of CVA, depression, mood disorder, NIDDM Plavix resumed, aspirin DC'd, patient instructed to follow-up with his neurologist as an OP to discuss the continuation of aspirin. Continue home meds as and when appropriate. Patient sliding scale insulin. #. DVT prophylaxis: SCDs #. Disposition: PT/OT--> rehab, CM to assist with DC planning. Could possibly DC in next 1-2 days. Admission and Anticipated Discharge Date Admission Date: September 08, 2021 Subjective Patient seen and examined at bedside for follow-up of acute blood loss anemia likely secondary to duodenal ulcer and possible acute pancreatitis. Patient was lying in bed, on room air, NAD, no new acute events overnight. Patient reports eating okay, having dark rash to but improving, denies any pain or nausea or vomiting or headache or dizziness. Patient denies fever/chills/cough/chest pain/palpitations/belly pain/other review of symptoms. Physical Exam Physical Exam: GENERAL: Alert and oriented x3. NAD, on RA. HEENT: No pallor, no icterus. Pupils equal, round and reactive to light. Oral mucosa moist. NECK: No JVD, no neck masses. HEART: S1 and S2 heard. Regular rate and rhythm. No murmur, no gallop. RESPIRATORY SYSTEM: Normal AP diameter. No accessory muscle use. No wheezing, no crackles. ABDOMEN: Soft, bowel sounds present, nontender, no distention. CENTRAL NERVOUS SYSTEM: No facial droop. Speech is clear. Obeys simple commands. Moves extremities. EXTREMITIES: No edema, no erythema seen. Results & Data Results & Data ([facility]) Vital Signs (Past 12 Hours) Vital Signs Temp Pulse Pulse Resp BP Pulse Ox 09/18/21 16:00 63 09/18/21 14:48 36.7 C 62 20 154/77 H 95 09/18/21 11:09 36.5 C 72 20 108/66 97 09/18/21 07:53 36.9 C 65 20 167/79 H 96 09/18/21 07:00 62
[2021-09-18] MEDS: AMITRIPTYLINE HCL 10 MG TAB PO SCH (20:02)
[2021-09-19] MEDS: CEFEPIME 2,000 MG in SYRINGE 0 ML IV SCH ×2 (05:28→13:58)
[2021-09-19 06:43] LABS: BUN Creatinine Ratio 18.2 (10-20); Calcium 7.9 mg/dl (8.5-10.1); Creatinine Clr Calc Pharmacy 100.8 ml/min; Est GFR (African American) 113.5 ml/min; Magnesium 1.9 mg/dl (1.7-2.4); Potassium 3.6 mmol/L (3.5-5.1)
[2021-09-19 06:48] LABS: Hematocrit (blood only) 29.4 % (42-52); Hemoglobin 9.2 g/dL (14.0-18.0); Mean Corpuscular Hemoglobin 25.8 pg (25-34); Mean Corpuscular Hgb Conc 31.3 g/dL (32-36); Mean Corpuscular Volume 82.4 fL (80-100); Mean Platelet Volume 9.7 fL (7.4-10.4); Platelet Count 454 K/uL (130-400); RDW Coefficient of Variation 20.3 % (11.5-14.5); RDW Standard Deviation 60.8 fL (36.4-46.3); Red Blood Count 3.57 M/uL (4.7-6.1)
[2021-09-19] MEDS: DOXYCYCLINE HYCLATE 100 MG CAP PO SCH (08:29)
[2021-09-19] MEDS: PANTOprazole 40 MG TAB PO SCH ×2 (08:29→20:59)
[2021-09-19] MEDS: CALCIUM CARBONATE 500 MG CHEWABLE TAB PO SCH ×3 (08:29→20:53)
[2021-09-19] MEDS: PROPRANOLOL HCL LA 80 MG CAPCR PO SCH (08:30)
[2021-09-19] MEDS: CEROVITE ADV FORMULA TAB PO SCH (08:30)
[2021-09-19] MEDS: ADVANCED PROBIOTIC 1250 MG CAPSULE PO SCH (08:30)
[2021-09-19] MEDS: ATORVASTATIN 40 MG TAB PO SCH (08:30)
[2021-09-19] MEDS: buPROPion XL 150 MG TABCR PO SCH (08:30)
[2021-09-19] MEDS: CLOPIDOGREL BISULFATE 75 MG TAB PO SCH (08:31)
[2021-09-19] MEDS: SUCRALFATE 1 GM/10 ML UDC PO SCH ×4 (08:31→21:05)
[2021-09-19] MEDS: FLUoxetine HCL 20 MG CAP PO SCH (08:31)
[2021-09-19] MEDS: INSULIN ASPART PER UNIT SC SCH ×4 (08:35→20:58)
--- NOTE | 2021-09-19 16:35 | Hospitalist Progress Note ---
Date of Service September 19, 2021 Assessment & Plan (1) Duodenal ulcer: (2) Acute blood loss anemia: Plan: #. Acute blood loss anemia #. Duodenal ulcers Patient is status post 3 unit PRBC, hemoglobin stable around 9 Patient denies any nausea/vomiting/belly pain/headache/dizziness. 09/09 EGD: Nonbleeding duodenal ulcer with visible vessel status post injection and clips placed. Duodenal mucosa biopsied. 09/14 EGD [after persistent epigastric pain]: Prior clips redemonstrated, few nonbleeding superficial duodenal ulcer with clean ulcer base in the first part of duodenum and in the second part of duodenum. --> pathology negative for s prue/parasites/dysplasia or malignancy. 09/14 CTAP: No evidence for aortoenteric fistula. Vascular surgery evaluated: Aorta is no longer aneurysmal, no indication of intervention at this time. Avoid NSAIDs, continue with PPI. Plavix resumed. Follow-up with GI as an outpatient, EGD in 6 to 8 weeks to document healing, pancreatic imaging as an outpatient. #. Possible acute pancreatitis Seen on repeat CT chest and CT abdomen pelvis though lipase level WNL throughout. GI recommending outpatient MRI/MRCP Patient tolerating diet, continue to monitor. No belly pain. #. Persistent leukocytosis, likely from pneumonia CT chest suggestive of left lower lobe pneumonia 09/09 and 09/12 blood cultures negative for 5 days. Continue with cefepime and doxycycline until completion. Patient afebrile, WBC trending down. #. Trace Blood in the Urine - repeat UA as outpatient - Hb stable #. Other chronic medical conditions: History of CVA, depression, mood disorder, NIDDM Plavix resumed, aspirin DC'd, patient instructed to follow-up with his neurologist as an OP to discuss the continuation of aspirin. Continue home meds as and when appropriate. Patient sliding scale insulin. #. DVT prophylaxis: SCDs #. Disposition: PT/OT--> rehab, CM to assist with DC planning. Medically stable, PT/OT recommending rehab. Insurance denied for rehab per CM. Called [phone] for P2P, awaiting call back. Ref #. [id number]. Plan to get updated PT/OT eval prabhakar. CM aware. Admission and Anticipated Discharge Date Admission Date: September 08, 2021 Subjective Patient seen and examined at bedside for follow-up of acute blood loss anemia likely secondary to duodenal ulcer and possible acute pancreatitis. Patient was lying in bed, on room air, NAD, no new acute events overnight. Patient reports eating better, having darker stool but improving, denies any pain or nausea or vomiting or headache or dizziness. Pt reports gaining strength slowly. Patient denies fever/chills/cough/chest pain/palpitations/belly pain/other review of symptoms. Physical Exam Physical Exam: GENERAL: Alert and oriented x3. NAD, on RA. HEENT: No pallor, no icterus. Pupils equal, round and reactive to light. Oral mucosa moist. NECK: No JVD, no neck masses. HEART: S1 and S2 heard. Regular rate and rhythm. No murmur, no gallop. RESPIRATORY SYSTEM: Normal AP diameter. No accessory muscle use. No wheezing, no crackles. ABDOMEN: Soft, bowel sounds present, nontender, no distention. CENTRAL NERVOUS SYSTEM: No facial droop. Speech is clear. Obeys simple commands. Moves extremities. EXTREMITIES: No edema, no erythema seen. Results & Data Results & Data ([facility]) Vital Signs (Past 12 Hours) Vital Signs Temp Pulse Pulse Resp BP BP Pulse Ox 09/19/21 15:28 70 09/19/21 15:19 37.0 C 69 18 119/46 L 94 09/19/21 11:04 36.6 C 68 18 159/77 H 97 09/19/21 09:42 66 09/19/21 06:37 36.6 C 69 18 153/75 H 95
--- NOTE | 2021-09-19 16:39 | Gastroenterology Progress Note ---
Date of Service September 19, 2021 Assessment & Plan (1) Duodenal ulcer: Plan: pancreatitis elevated WBC --continus to improve. Continue PPI, outpt EGD in 6-8 weeks. Outpt imaging 6-8 weeks for f/u of pancreatitis to look for resolution and/or pancreas lesion. Kayden Gallegos MD have spent 15 minutes of discrete time performing the activities of this visit which include but are not limited to review of the medical record, obtaining a history, physical exam, and entering information in the electronic record. Admission and Anticipated Discharge Date Admission Date: September 08, 2021 Subjective cc abd pain HPI and daughter with patient for H and P. Per nursing he is passing brown stools. Pt states he can eat but states he is not eating very much. Abd pain is minimal. Physical Exam Gastrointestinal (Abdomen): normal bowel sounds, soft, nontender, no hepatosplenomegaly Results & Data ([facility]) Vital Signs (Past 12 Hours) Vital Signs Temp Pulse Pulse Resp BP BP Pulse Ox 09/19/21 15:28 70 09/19/21 15:19 37.0 C 69 18 119/46 L 94 09/19/21 11:04 36.6 C 68 18 159/77 H 97 09/19/21 09:42 66 09/19/21 06:37 36.6 C 69 18 153/75 H 95
[2021-09-19] MEDS: AMITRIPTYLINE HCL 10 MG TAB PO SCH (20:53)
[2021-09-20] MEDS: PANTOprazole 40 MG TAB PO SCH (08:24)
[2021-09-20] MEDS: FLUoxetine HCL 20 MG CAP PO SCH (08:24)
[2021-09-20] MEDS: CALCIUM CARBONATE 500 MG CHEWABLE TAB PO SCH ×2 (08:24→13:00)
[2021-09-20] MEDS: SUCRALFATE 1 GM/10 ML UDC PO SCH ×2 (08:24→13:00)
[2021-09-20] MEDS: buPROPion XL 150 MG TABCR PO SCH (08:24)
[2021-09-20] MEDS: PROPRANOLOL HCL LA 80 MG CAPCR PO SCH (08:24)
[2021-09-20] MEDS: ADVANCED PROBIOTIC 1250 MG CAPSULE PO SCH (08:24)
[2021-09-20] MEDS: CLOPIDOGREL BISULFATE 75 MG TAB PO SCH (08:24)
[2021-09-20] MEDS: CEROVITE ADV FORMULA TAB PO SCH (08:24)
[2021-09-20] MEDS: ATORVASTATIN 40 MG TAB PO SCH (08:24)
[2021-09-20] MEDS: INSULIN ASPART PER UNIT SC SCH ×2 (08:25→12:58)
--- NOTE | 2021-09-20 08:48 | Gastroenterology Progress Note ---
Date of Service September 20, 2021 Assessment & Plan (1) Duodenal ulcer: Plan: pancreatitis -- improved elevated WBC -- improved Continue PPI, outpatient EGD in 6-8 weeks, GI office will arrange follow-up. Outpatient imaging 6-8 weeks for f/u of pancreatitis to look for resolution and/or pancreas lesion. We will sign off patient case at this time. Please reconsult if GI services needed. Case reviewed with Dr. Mcmahon. Please refer to supervising physician addendum for further recommendations. I have spent 15 minutes of discrete time performing the activities of this visit which include but are not limited to review of the medical record, obtaining a history, physical exam, and entering information in the electronic record. Admission and Anticipated Discharge Date Admission Date: September 08, 2021 Supervising Physician Co-Signing Physician Notes I have seen and examined the patient. I agree with note above by DARNELL Lozano except as noted below. HPI No abd pain. H and H stable. PE Abdomen pos bs, soft, no guarding nor rebound A/P DU stable GI bleed stable pancreatitis stable. EGD and pancreas imaging as outpt as noted above. Will sign off. Please call for further question s As the supervising physician, I , Kayden Mcmahon MD have spent 7 minutes of discrete time performing the activities of this visit which include but not limited to review of the medical records, obtaining a history, physical exam and entering information in the electronic record. DARNELL Lozano has reported spending 15 minutes of discrete time with the activities of this visit. Subjective The patient is awake alert and oriented this morning. He is sitting at bedside in a chair eating his breakfast. Denies any abdominal pain, nausea, vomiting. He does note he has had decreased appetite but is eating some of the items on his breakfast tray. He reports his last bowel movement was yesterday Review of Systems Review of Systems: All systems reviewed & are unremarkable except as noted in Subjective Physical Exam Gastrointestinal (Abdomen): normal bowel sounds, soft, nontender, no hepatosplenomegaly Results & Data ([facility]) Vital Signs (Past 12 Hours) Vital Signs Temp Pulse Pulse Resp BP Pulse Ox 09/20/21 08:06 65 09/20/21 06:37 36.8 C 72 18 153/74 H 97 09/20/21 02:53 36.6 C 68 18 166/81 H 95 09/19/21 23:51 64 09/19/21 22:31 36.8 C 65 18 145/79 H 95 Laboratory Results Laboratory Results - last 24 hr 09/18/21 09/19/21 09/19/21 12:40 11:21 16:35 POC Glucose 94 117 H Stool H. pylori Ag SEE NOTE 09/19/21 09/20/21 19:48 07:40 POC Glucose 81 120 H Stool H. pylori Ag
[2021-09-20 10:43] LABS: Hematocrit (blood only) 31.6 % (42-52); Hemoglobin 9.7 g/dL (14.0-18.0); Mean Corpuscular Hemoglobin 25.5 pg (25-34); Mean Corpuscular Hgb Conc 30.7 g/dL (32-36); Mean Corpuscular Volume 82.9 fL (80-100); Mean Platelet Volume 9.6 fL (7.4-10.4); Platelet Count 588 K/uL (130-400); RDW Coefficient of Variation 20.4 % (11.5-14.5); RDW Standard Deviation 61.5 fL (36.4-46.3); Red Blood Count 3.81 M/uL (4.7-6.1); White Blood Count 11.54 K/uL (4.8-10.8)
--- NOTE | 2021-09-20 12:57 | Discharge Summary ---
Date of Service September 20, 2021 Admission HPI Per Admitting Provider Chief Complaint: Vomiting, possible syncope Primary Care Provider: Zaid Arnold DO History obtained from patient, family, and records. Medical history significant for CVA, AAA status post surgery, COPD, hypert ension, hyperlipidemia, DM2 on oral medications, chronic anemia (baseline hemoglobin of 12), past tobacco abuse, history of C. difficile. Last confinement 2015 under Orthopedics service for elective left hip surgery. Patient was not feeling well last night. Achy central abdominal pain with coffee-ground emesis. No black/bloody bowel movement. No fever, no chills. Patient noted some lightheadedness. Patient did not tell he was having issues. Usual daily meloxicam intake for arthritis. Today, patient fell close to the commode. Not sure if he passed out. Bowen lightheaded prior to event. Patient helped him to the commode. Patient fell again, possible syncopal event. Patient brought to the ER for evaluation. IV PPI started for GI bleed. Cefoxitin given for possible infection. NGT inserted for gastric outlet obstruction. Admission Exam Per Admitting Provider GENERAL: Slightly uncomfortable, anxious, no respiratory distress SKIN: Pallor, warm HEENT: [place] palpebral conjunctivae, no ptosis, dry buccal mucosa, NGT in place NECK : Supple, no tenderness CHEST : Decreased breath sounds, no tenderness HEART : RRR, no obvious murmurs ABDOMEN: Some distention, central abdominal tenderness EXTREMITIES : No LE swelling/tenderness, no other conspicuous deformities noted NEUROLOGIC : Coherent, no facial asymmetry, no other gross focality Principal Diagnosis Acute blood loss anemia Duodenal ulcers Likely acute pancreatitis Likely pneumonia Discharge Exam GENERAL: Alert and oriented x3. NAD, on RA. HEENT: No pallor, no icterus. Pupils equal, round and reactive to light. Oral mucosa moist. NECK: No JVD, no neck masses. HEART: S1 and S2 heard. Regular rate and rhythm. No murmur, no gallop. RESPIRATORY SYSTEM: Normal AP diameter. No accessory muscle use. No wheezing, no crackles. ABDOMEN: Soft, bowel sounds present, nontender, no distention. CENTRAL NERVOUS SYSTEM: No facial droop. Speech is clear. Obeys simple commands. Moves extremities. EXTREMITIES: No edema, no erythema seen. Discharge Data Allergies Allergy/AdvReac Type Severity Reaction Status Date / Time tetracycline Allergy Mild RASH Verified 09/09/21 10:19 Consultations 09/08/21 19:05 ED Decision to Admit Stat 09/08/21 21:33 Consult Gastroenterology Routine 09/12/21 09:45 Consult General Surgery Routine 09/16/21 08:44 Consult Vascular Surgery Routine Procedures Performed Operation Date: 09/09/21 12:05 Actual Procedures p Esophagogastroduodenoscopy with push enteroscopy with bx and hemastasis - Arsenio Plata MD Operation Date: 09/09/21 16:45 <No data on this case meets the specified criteria> Operation Date: 09/14/21 14:00 Actual Procedures p Endoscopic Ultrasonography Upper - Nikunj Dey DO Ordered Studies 09/08/21 16:48 CT abd pelvis wo con Stat CT head/brain wo con Stat 09/09/21 12:10 CT angio abdomen pelvis w con Urgent 09/12/21 12:53 CT chest diagnostic wo con Routine 09/14/21 10:32 CT angio abdomen pelvis w con Stat 09/15/21 11:26 US liver Routine Hospital Course (1) Duodenal ulcer: (2) Acute blood loss anemia: 71 yo M was managed for the following: #. Acute blood loss anemia #. Duodenal ulcers Patient is status post 3 unit PRBC, hemoglobin stable around 9 Patient denies any nausea/vomiting/belly pain/headache/dizziness. Reports stool color getting better and is tolerating diet well. 09/09 EGD: Nonbleeding duodenal ulcer with visible vessel status post injection and clips placed. Duodenal mucosa biopsied. 09/14 EGD [after persistent epigastric pain]: Prior clips redemonstrated, few nonbleeding superficial duodenal ulcer with clean ulcer base in the first part of duodenum and in the second part of duodenum. --> pathology negative for sprue/parasites/dysplasia or malignancy. 09/14 CTAP: No evidence for aortoenteric fistula. Vascular surgery evaluated: Aorta is no longer aneurysmal, no indication of intervention at this time. Avoid NSAIDs, continue with PPI and sucralfate. Continue with Plavix. Follow-up with GI as an outpatient, EGD in 6 to 8 weeks to document healing, pancreatic imaging as an outpatient. Get your blood work CBC done in a week time and have the results forwarded to your primary care physician. #. Possible acute pancreatitis Seen on repeat CT chest and CT abdomen pelvis though lipase level WNL throughout. GI recommending outpatient MRI/MRCP Patient tolerating diet, denies belly pain. #. Persistent leukocytosis, likely from pneumonia CT chest suggestive of left lower lobe pneumonia 09/09 and 09/12 blood cultures negative for 5 days. Patient is a status post cefepime and doxycycline courses. #. Trace Blood in the Urine - repeat UA as outpatient - Hb stable #. Other chronic medical conditions: History of CVA, depression, mood disorder, NIDDM Plavix resumed, aspirin DC'd, patient instructed to follow-up with his neurologist as an OP to discuss the continuation of aspirin. Continue home meds as and when appropriate. Patient sliding scale insulin. PT/OT recommending rehab, insurance denied for rehab. Patient being discharged to home with following instruction at the point of discharge ( called and updated on instruction): Follow-up with your primary care physician within a week time. Avoid NSAIDs and continue with Protonix and sucralfate. Your aspirin has been discontinued upon discharge, recommend to reach out to your outpatient neurologist/PCP for further discussion on continuation of your aspirin. Follow-up with GI as an outpatient, likely EGD in 6 to 8 weeks and also imaging in 6 to 8 weeks for follow-up of your pancreatitis. Because of your trace hematuria, advise to get your urinalysis as an outpatient in 6 to 12 weeks time, have the results forwarded to your primary care physician for further evaluation and management. Get your blood work CBC done in a week time upon discharge and have the results forwarded to your primary care physician. c/w physical therapy as outpatient. Take your medications as prescribed. Total Time Total Time Spent Total Time Spent (In Minutes): 40 Discharge Plan Discharge Items Patient Disposition: Home - Home Health Services Reason For Visit: ANEMIA,GI BLEED Discharge Diagnosis: Acute blood loss anemia Duodenal ulcers Likely acute pancreatitis Likely pneumonia Activity: Resume your previous activity Non-emergency contact: Primary Care Provider Call non-emergency contact if: you have any medication questions, your symptoms worsen and your temperature is above 101 Follow-up/Referrals: Zaid Arnold DO [Primary Care Provider] - (Date & Time 09/27/2021 1:40 PM Provider Zaid Arnold DO Department [facility] [place], [place] ) Diet: Carb Count or DM1 and Low Fat Addtl Attending Provider Instructions: Follow-up with your primary care physician within a week time. Avoid NSAIDs and continue with Protonix and sucralfate. Your aspirin has been discontinued upon discharge, recommend to reach out to your outpatient neurologist/PCP for further discussion on continuation of your aspirin. Follow-up with GI as an outpatient, likely EGD in 6 to 8 weeks and also imaging in 6 to 8 weeks for follow-up of your pancreatitis. Because of your trace hematuria, advise to get your urinalysis as an outpatient in 6 to 12 weeks time, have the results forwarded to your primary care physician for further evaluation and management. Get your blood work CBC done in a week time upon discharge and have the results forwarded to your primary care physician. Take your medications as prescribed. Pending Studies at Discharge: No Stand-Alone Forms: My [facility] [place], Smoking Cessation Medications and DC Order Prescriptions: New pantoprazole 40 mg Tablet,Delayed Release (Dr/Ec) 40 mg PO BID Qty: 60 RF: 0 Advanced Probiotic 625 mg (10 billion cell) Capsule 2 cap PO DAILY 7 Days Qty: 14 RF: 0 sucralfate 1 gram tablet 1 g PO Q6H 28 Days Qty: 112 RF: 0 Continued fluoxetine 40 mg capsule 40 mg PO DAILY RF: 0 atorvastatin 40 mg tablet 40 mg PO DAILY RF: 0 metformin 500 mg tablet 500 mg PO BID RF: 0 propranolol 160 mg capsule,extended release 24 hr 160 mg PO DAILY RF: 0 clopidogrel 75 mg tablet 75 mg PO QAM RF: 0 tramadol 50 mg tablet 50 mg PO Q6 PRN (Reason: Pain, Severe) RF: 0 amitriptyline 10 mg tablet 10 mg PO HS RF: 0 lorazepam 1 mg tablet 1 mg PO HS PRN (Reason: Anxiety/insomnia) RF: 0 fluoxetine 20 mg capsule 20 mg PO DAILY RF: 0 rizatriptan 10 mg Tablet 10 mg PO UD PRN (Reason: Migraine Headache) RF: 0 calcium carbonate [Tums 500] 500 mg calcium (1,250 mg) Tablet,Chewable 500 mg PO TID RF: 0 albuterol sulfate 90 mcg/actuation HFA aerosol inhaler 2 puff INHALATION Q4 PRN (Reason: Wheezing) RF: 0 bupropion HCl 150 mg tablet extended release 24 hr 150 mg PO DAILY RF: 0 Centrum Silver 0.4 mg-300 mcg- 250 mcg Tablet 1 tab PO DAILY RF: 0 Discontinued meloxicam 15 mg tablet 15 mg PO DAILY RF: 0 pantoprazole 40 mg tablet,delayed release (DR/EC) 40 mg PO DAILYBB RF: 0 aspirin 325 mg Tablet 325 mg PO DAILY RF: 0 Discharge Orders: Discharge Order (Routine); Ordered 09/20/21 Ordered By: Peter Mendoza Admission Data Admit Date/Time: 09/08/21 20:00 Attending Provider: Peter Mendoza Admit Provider: Jose Evans Primary Care Provider: Zaid Arnold Other Providers: En Berkowitz ; Calvin Velez ; Nikunj Dey ; Jean Umana ; Saulo Treviño ; [facility] ; Miller Messer [facility]
== END 2021-09-20 17:20 | disposition home health service (06) | DRG 377 ==
LOC: ED 16:34 → SUATTDRO 20:00 → 2N 20:00

== ENCOUNTER 2024-09-30 12:09 | Inpatient (IN) ==
--- NOTE | 2024-09-30 13:25 | CT Scan Report ---
CT SCAN OF THE BRAIN WITHOUT IV CONTRAST CLINICAL HISTORY: Fall. Right-sided weakness. COMPARISON STUDY: MRI of the brain May 26, 2015. Head CT March 01, 2022. TECHNIQUE: Unenhanced axial CT scan of the brain was performed from the vertex to the skull base. A dose lowering technique was utilized adhering to the principles of ALARA. CT DOSE: 625.8 mGy.cm FINDINGS: Brain parenchyma: No acute intracranial hemorrhage, midline shift or mass effect is present. Ha-whi te matter differentiation is preserved. There are no extra-axial fluid collections. There are no find ings to suggest acute dural sinus thrombosis or acute territorial infarct. White matter hypodensities favor small vessel disease. Ventricles, sulci, cisterns: The ventricular system is stable. The basal cisterns are patent. Calvarium: Unremarkable. Sinuses and mastoids: The visualized paranasal sinuses are clear. The mastoid air cells are well pneu matized. Orbits: The bony orbits are grossly intact. IMPRESSION: 1. No acute intracranial findings. 2. No calvarial fractures. ACT 112: Negative or not required by law. Electronically signed by: Uli Hernandez M.D. 09/30/2024 1:24 PM
--- NOTE | 2024-09-30 13:29 | XRay Report ---
XR chest 1V not portable HISTORY: 74 years-old Male stroke alert acute stroke like symptoms COMPARISON: 09/12/2021 TECHNIQUE: PA view of the chest FINDINGS: Cardiomediastinal and hilar silhouettes are within normal limits. No pneumothorax, pleural effusion o r airspace consolidation. Right shoulder arthroplasty. Partially imaged lumbar spinal fusion hardware . IMPRESSION: No acute process. ACT 112: Negative or not required by law. The above report was generated using voice recognition software. It may contain grammatical, syntax o r spelling errors. Electronically signed by: Uli Whitman M.D. 09/30/2024 1:28 PM
[2024-09-30 14:00] LABS: Hematocrit (blood only) 45.2 % (42.0-52.0); Hemoglobin 15.3 g/dl (14.0-18.0); Mean Corpuscular Hemoglobin 30.4 pg (25.0-34.0); Mean Corpuscular Hgb Conc 33.8 g/dL (32.0-36.0); Mean Corpuscular Volume 89.9 fL (80.0-100.0); Mean Platelet Volume 10.2 fL (9.4-12.4); Platelet Count 250 K/uL (130-400); RDW Standard Deviation 42.7 fL (36.4-46.3); Red Blood Count 5.03 M/uL (4.70-6.10); White Blood Count 8.28 K/ul (4.8-10.8)
--- NOTE | 2024-09-30 14:03 | Emergency Department Note ---
Impression & Plan Confusion, Weakness, Fall ED Provider Note NAME: KAILYN ESTES AGE: 74 SEX: M : 1950 ARRIVES VIA: Walk-In INFORMANT: Patient ED PROVIDER(S): Elpidio Alonzo DO CHIEF COMPLAINT: Confusion, weakness and right arm weakness HPI: Patient is a 74-year-old male who presents to the ER with a past medical history of pancreatitis, slurred speech, migraines, hypertension for weakness, lightheadedness and confusion which has been getting worse for the past week. Patient also has right arm weakness and he is unsure how long this has been there but notes that it is worse. Patient denies any headache or change in vision. No chest pain or shortness of breath. No nausea, vomiting, or diarrhea. ADDITIONAL HISTORY OBTAINED: Patient provides additional history and notes that this has been getting worse over the past week. He is having trouble moving around. Chronic Medical/Social Conditions Affecting Care: Per HPI PAST MEDICAL HISTORY:See Below PAST SURGICAL HISTORY:See Below FAMILY HISTORY:See Below SOCIAL HISTORY:See Below HOME MEDICATIONS:See Below ALLERGIES:See Below VITALS:See Below PHYSICAL EXAMINATION: GENERAL: Sitting up in bed, alert, well appearing, well nourished, no distress, non-toxic EYE EXAM: normal conjunctiva. PERRL and EOM's grossly intact. OROPHARYNX: no exudate, no erythema, lips, buccal mucosa, and tongue normal and mucous membranes are moist NECK: supple, no nuchal rigidity, no adenopathy, non-tender LUNGS: Clear to auscultation. Normal chest wall mechanics HEART: no murmurs, S1 normal and S2 normal ABDOMEN: abdomen soft, non-tender, normo-active bowel sounds, no masses, no rebound or guarding. BACK: Back is symmetrical on inspection and there is no deformity, no midline tenderness, no CVA tenderness. SKIN: no rashes and no bruising UPPER EXTREMITIES: upper extremities are grossly normal. LOWER EXTREMITIES: No pitting edema. NEURO EXAM: Normal sensorium, cranial nerves II-XII intact, normal speech, patient has weakness in the right upper extremity 4 out of 5 with flexion extension and grasp. This is new. No weakness of left upper extremity, no weakness of legs. No drift. Finger to nose intact. Gross sensation intact. MEDICAL DECISION MAKING: Patient is a 74-year-old who presents to the ER for the above-stated complaint. IV was established and blood work was obtained. Labs show no significant leukocytosis or anemia. INR unremarkable. BMP along with LFTs bilirubin was reassuring. UA was clean. Patient does have some weakness of the right upper extremity which she believes is worse than what it usually is. notes that he has been having trouble getting around and has been more confused. CT of the head was negative. Patient was updated at bedside and discussed case with the hospitalist for further evaluation management and treatment. Patient was given a dose of aspirin while in the ER. Consults/Care Managements Discussions: Per [facility] Triage Nursing notes reviewed. Limited review of prior medical records performed Vital Signs: reviewed and remarkable for no significant abnormalities Differential diagnosis: Infection, dehydration, metabolic abnormality, hypo/hyperglycemia, electrolyte disturbance, anemia, hypoxia, cardiac sources, intracerebral event, toxicologic, neurologic, as well as other pathologies. ER treatment provided: See below Diagnostics interpreted by me include EKG and cardiac monitoring as listed below: -Cardiac Monitoring: An order was placed for continuous cardiac monitoring. The monitor shows a rate of 60 with sinus rhythm. -ECG: Sinus rhythm rate of 58 Normal axis No PVCs QTc 412 -Laboratory studies:Interpreted by me as stated above in MDM and shown below. Imaging studies: Xrays: As interpreted by me: Portable AP upright 1 view of the chest shows no focal infiltrate CTs show: CT of the head was negative per radiology Procedures:none Critical Care: None Past Med/Surg History Problem List (Updated 09/30/24 @ 18:09 by DARNELL Oliveira) Right sided weakness Confusion Migraine AAA (abdominal aortic aneurysm) without rupture COPD (chronic obstructive pulmonary disease) Obstructive sleep apnea on CPAP (Chronic) Depression (Chronic) HTN (hypertension) (Chronic) Dyslipidemia (Chronic) Diabetes mellitus, type II (Chronic) Medical History Left pontine CVA Hip pain Pancreatitis Encounter for pre-operative examination Abdominal pain Duodenal ulcer Acute blood loss anemia Acute upper GI bleed Gastric outlet obstruction Abdominal pain, acute, epigastric Nausea & vomiting Syncope and collapse H/O asbestos exposure H/O restrictive lung disease History of CVA (cerebrovascular accident) "05/2015", no residual deficit H/O migraine with aura History of tobacco abuse Slurred speech DJD (degenerative joint disease) DJD (degenerative joint disease), multiple sites Surgical History History of AAA (abdominal aortic aneurysm) repair History of right hip replacement "01/2015" History of lumbar laminectomy "2000,2001,2004,2006" History of colonoscopy Social History (Updated 09/30/24 @ 17:41 by DARNELL Oliveira) Smoking Status: Former smoker Second Hand Exposure: No; Hx Alcohol Use: No Hx Substance Use: No Preferred Language: Arabic [employer] Super[employer] Required: No Beliefs That Will Affect Care: None Current Living Situation: Spouse Current Living Situation Comment: Lives w/ Feels Safe at Home: Yes Assistive Devices: Cane, Glasses and Walker Allergies Allergies Allergy/AdvReac Type Severity Reaction Status Date / Time latex Allergy Intermediate Rash Verified 09/30/24 15:44 tetracycline Allergy Intermediate RASH Verified 09/30/24 15:44 Home Meds Home Medications Medication Instructions Recorded Confirmed albuterol sulfate 90 mcg/actuation 2 puff inhalation Q4 PRN Wheezing 09/08/21 09/30/24 aerosol inhaler atorvastatin 40 mg tablet 40 mg PO DAILY 09/08/21 09/30/24 bupropion HCl 150 mg 24 hr tablet, 150 mg PO DAILY 09/08/21 09/30/24 extended release calcium carbonate 500 mg PO DIRECTED PRN 09/08/21 09/30/24 HEARTBURN/INDIGESTION clopidogrel 75 mg tablet 75 mg PO QAM 09/08/21 09/30/24 fluoxetine 20 mg capsule 20 mg PO DAILY 09/08/21 09/30/24 fluoxetine 40 mg capsule 40 mg PO DAILY 09/08/21 09/30/24 lorazepam 1 mg tablet 1 mg PO HS PRN Anxiety/insomnia 09/08/21 09/30/24 uoafveau-lwh-mewoe acid 0.4 1 tab PO DAILY 09/08/21 09/30/24 mg-lycopene 300 mcg-lutein 250 mcg tablet (Centrum Silver) rizatriptan 10 mg tablet 10 mg PO UD PRN Migraine Headache 09/08/21 09/30/24 tramadol 50 mg tablet 50 mg PO Q6 PRN Pain, Severe 09/08/21 09/30/24 acetaminophen 650 mg 1,300 mg PO BID 09/30/24 09/30/24 tablet,extended release (Tylenol 8 Hour) buspirone 5 mg tablet 5 mg PO QDL 09/30/24 09/30/24 diclofenac sodium 1 % topical gel 2 g topical BID 09/30/24 09/30/24 food supplemt, lactose-reduced 1 ea PO BID 09/30/24 09/30/24 losartan 25 mg tablet 25 mg PO DAILY 09/30/24 09/30/24 olanzapine 2.5 mg tablet 2.5 mg PO DAILY 09/30/24 09/30/24 propranolol 80 mg capsule,24 80 mg PO DAILY 09/30/24 09/30/24 hr,extended release trazodone 50 mg tablet 50 mg PO HS 09/30/24 09/30/24 Previous Rx's Medication Instructions Recorded pantoprazole 40 mg tablet,delayed 40 mg PO BID #60 tabs 09/20/21 release Results & Data (ED) Vital Signs Vital Signs - 24 hr 09/30/24 12:19 09/30/24 13:50 09/30/24 13:50 Temperature 36.8 C Temperature Source Skin Pulse Rate 69 Pulse Rate from SpO2 Sensor Respiratory Rate 20 Respiratory Effort / Characteristics Non-Labored Spontaneous Respiratory Depth Normal Blood Pressure 173/87 H Blood Pressure Mean 115 Pulse Oximetry 98 Oxygen Delivery Method Room Air Room Air Room Air Sepsis Recent Fever Within 48 Hours No Sepsis New/Unexplained Change in Mental Status N/A Sepsis Action Taken by Nursing No Action Required 09/30/24 14:24 09/30/24 14:27 09/30/24 14:27 Temperature Temperature Source Pulse Rate 55 L 56 L 54 L Pulse Rate from SpO2 Sensor 55 L 54 L Respiratory Rate 14 17 Respiratory Effort / Characteristics Respiratory Depth Blood Pressure Blood Pressure Mean Pulse Oximetry 95 95 Oxygen Delivery Method Sepsis Recent Fever Within 48 Hours Sepsis New/Unexplained Change in Mental Status Sepsis Action Taken by Nursing 09/30/24 14:30 09/30/24 14:30 09/30/24 14:36 Temperature Temperature Source Pulse Rate 60 Pulse Rate from SpO2 Sensor 60 Respiratory Rate 15 Respiratory Effort / Characteristics Respiratory Depth Blood Pressure 152/79 H 152/79 H Blood Pressure Mean 109 109 Pulse Oximetry 93 Oxygen Delivery Method Sepsis Recent Fever Within 48 Hours Sepsis New/Unexplained Change in Mental Status Sepsis Action Taken by Nursing 09/30/24 14:42 09/30/24 15:00 09/30/24 15:15 Temperature Temperature Source Pulse Rate 58 L 57 L 56 L Pulse Rate from SpO2 Sensor 57 L 56 L 56 L Respiratory Rate 17 15 14 Respiratory Effort / Characteristics Respiratory Depth Blood Pressure 148/79 H Blood Pressure Mean 102 Pulse Oximetry 92 95 93 Oxygen Delivery Method Sepsis Recent Fever Within 48 Hours Sepsis New/Unexplained Change in Mental Status Sepsis Action Taken by Nursing 09/30/24 15:21 09/30/24 15:30 09/30/24 15:30 Temperature Temperature Source Pulse Rate 54 L 54 L Pulse Rate from SpO2 Sensor 54 L 54 L Respiratory Rate 16 17 Respiratory Effort / Characteristics Respiratory Depth Blood Pressure 145/81 H Blood Pressure Mean 100 Pulse Oximetry 94 94 Oxygen Delivery Method Sepsis Recent Fever Within 48 Hours Sepsis New/Unexplained Change in Mental Status Sepsis Action Taken by Nursing 09/30/24 15:42 09/30/24 15:57 09/30/24 16:00 Temperature Temperature Source Pulse Rate 53 L 54 L 54 L Pulse Rate from SpO2 Sensor 53 L 54 L 53 L Respiratory Rate 16 14 17 Respiratory Effort / Characteristics Respiratory Depth Blood Pressure 148/76 H Blood Pressure Mean 100 Pulse Oximetry 95 96 95 Oxygen Delivery Method Sepsis Recent Fever Within 48 Hours Sepsis New/Unexplained Change in Mental Status Sepsis Action Taken by Nursing 09/30/24 16:09 09/30/24 16:32 09/30/24 16:32 Temperature Temperature Source Pulse Rate 54 L Pulse Rate from SpO2 Sensor 54 L Respiratory Rate 19 Respiratory Effort / Characteristics Respiratory Depth Blood Pressure Blood Pressure Mean 122 122 Pulse Oximetry 96 Oxygen Delivery Method Sepsis Recent Fever Within 48 Hours Sepsis New/Unexplained Change in Mental Status Sepsis Action Taken by Nursing 09/30/24 16:36 09/30/24 16:42 09/30/24 17:39 Temperature Temperature Source Pulse Rate 56 L 57 L Pulse Rate from SpO2 Sensor 55 L Respiratory Rate 20 16 Respiratory Effort / Characteristics Respiratory Depth Blood Pressure Blood Pressure Mean Pulse Oximetry 96 Oxygen Delivery Method Sepsis Recent Fever Within 48 Hours Sepsis New/Unexplained Change in Mental Status Sepsis Action Taken by Nursing 09/30/24 17:43 09/30/24 17:45 Temperature Temperature Source Pulse Rate Pulse Rate from SpO2 Sensor 57 L Respiratory Rate Respiratory Effort / Characteristics Respiratory Depth Blood Pressure 162/80 H Blood Pressure Mean 119 Pulse Oximetry 96 Oxygen Delivery Method Sepsis Recent Fever Within 48 Hours Sepsis New/Unexplained Change in Mental Status Sepsis Action Taken by Nursing Laboratory Data 09/30/24 13:38 09/30/24 13:38 Lab Results 09/30/24 09/30/24 09/30/24 Range/Units 13:38 14:31 17:45 WBC 8.28 (4.8-10.8) K/ul RBC 5.03 (4.70-6.10) M/uL Hgb 15.3 (14.0-18.0) g/dl Hct 45.2 (42.0-52.0) % MCV 89.9 (80.0-100.0) fL MCH 30.4 (25.0-34.0) pg MCHC 33.8 (32.0-36.0) g/dL RDW Std Deviation 42.7 (36.4-46.3) fL RDW Coeff of Harjeet 13.0 (11.5-14.5) % Plt Count 250 (130-400) K/uL MPV 10.2 (9.4-12.4) fL PT Cancelled 10.9 INR Cancelled 1.0 APTT Cancelled 28 PTT Ratio Cancelled 1.0 Sodium 141 (136-145) mmol/L Potassium 4.4 (3.5-5.1) mmol/L Chloride 106 (98-107) mmol/L Carbon Dioxide 29 (21-32) mmol/L Anion Gap 6 (3-11) BUN 20 (6-23) mg/dl Creatinine 0.74 (0.6-1.4) mg/dl Est Cr Clr Drug Dosing 86.0 ml/min eGFR 95.67 BUN/Creatinine Ratio 27.0 H (10-20) Glucose 96 (70-99(Fasting)) mg/dl Calcium 9.3 (8.6-10.3) mg/dl Magnesium 2.0 (1.7-2.4) mg/dl Total Bilirubin 0.6 (0.2-1.0) mg/dl AST 32 (13-39) U/L ALT 21 (7-52) U/L Alkaline Phosphatase 92 (34-104) U/L Total Protein 7.1 (6.0-8.3) gm/dl Albumin 4.2 (3.4-5.0) gm/dl Globulin 2.9 (2.5-4.0) gm/dl Albumin/Globulin Ratio 1.4 (0.9-2) Urine Color Yellow Urine Appearance Clear (Clear) Urine pH 7.0 (4.5-7.5) Ur Specific [place] 1.019 (1.000-1.030) Urine Protein Trace H (Negative) Urine Glucose (UA) Negative (Negative) Urine Ketones Trace H (Negative) Urine Blood Negative (Negative) Urine Nitrite Negative (Negative) Urine Bilirubin Negative (Negative) Urine Urobilinogen Negative (Negative) Ur Leukocyte Esterase Negative (Negative) Urine WBC (Auto) 0-5 (0-5) /hpf Urine RBC (Auto) 0-2 (0-2) /hpf U Hyaline Cast (Auto) 0-2 (0-2) /lpf U Epithel Cells (Auto) 0-2 (0-2) /hpf Urine Bacteria (Auto) None Seen (None Seen) Administered Medications Lorazepam (Lorazepam 2 Mg/1 Ml Vial) 0.5 mg IV ONE PRN PRN Reason: Anxiety (PRIOR TO MRI) Stop: 10/30/24 17:14 Last Admin: 09/30/24 17:56 Dose: 0.5 mg Documented By: ADAM Discontinued Medications Aspirin (Aspirin Chew 324 Mg) 324 mg PO NOW STA Stop: 09/30/24 15:40 Last Admin: 09/30/24 16:11 Dose: 324 mg Documented By: JAGRUTI Sodium Chloride (Nss) 500 mls @ 999 mls/hr IV .Q31M ONE Stop: 09/30/24 16:09 Last Infusion: 09/30/24 17:48 Dose: Infused Documented By: Admin: 09/30/24 16:14 Dose: 999 mls/hr Documented By: JAGRUTI Imaging Data Radiologist's Impression: Chest X-Ray 09/30/24 12:30 XR chest 1V not portable HISTORY: 74 years-old Male stroke alert acute stroke like symptoms COMPARISON: 09/12/2021 TECHNIQUE: PA view of the chest FINDINGS: Cardiomediastinal and hilar silhouettes are within normal limits. No pneumothorax, pleural effusion or airspace consolidation. Right shoulder arthroplasty. Partially imaged lumbar spinal fusion hardware. IMPRESSION: No acute process. ACT 112: Negative or not required by law. The above report was generated using voice recognition software. It may contain grammatical, syntax or spelling errors. Electronically signed by: Uli Whitman M.D. 09/30/2024 1:[address] 09/30/24 12:30 CT SCAN OF THE BRAIN WITHOUT IV CONTRAST CLINICAL HISTORY: Fall. Right-sided weakness. COMPARISON STUDY: MRI of the brain May 26, 2015. Head CT March 01, 2022. TECHNIQUE: Unenhanced axial CT scan of the brain was performed from the vertex to the skull base. A dose lowering technique was utilized adhering to the principles of ALARA. CT DOSE: 625.8 mGy.cm FINDINGS: Brain parenchyma: No acute intracranial hemorrhage, midline shift or mass effect is present. Ha-white matter differentiation is preserved. There are no extra- axial fluid collections. There are no findings to suggest acute dural sinus thrombosis or acute territorial infarct. White matter hypodensities favor small vessel disease. Ventricles, sulci, cisterns: The ventricular system is stable. The basal cisterns are patent. Calvarium: Unremarkable. Sinuses and mastoids: The visualized paranasal sinuses are clear. The mastoid air cells are well pneumatized. Orbits: The bony orbits are grossly intact. IMPRESSION: 1. No acute intracranial findings. 2. No calvarial fractures. ACT 112: Negative or not required by law. Electronically signed by: Uli Hernandez M.D. 09/30/2024 1:24 PM Discharge Plan Visit Data Chief Complaint: TIA Symptoms Stated Complaint: POOR COGNITIVE SKILLS, DISRUPTED SPEECH, FALLING ED Provider: Elpidio Alonzo Discharge Problem: Confusion, Weakness, Fall Patient Disposition: Admitted As Inpatient Condition: Fair Forms Stand Alone Forms: [facility] Prescriptions Prescriptions: No Action fluoxetine 40 mg capsule 40 mg PO DAILY Rx Instructions: TOTAL DOSE 60 MG--TAKES WITH 20 MG CAP. atorvastatin 40 mg tablet 40 mg PO DAILY clopidogrel 75 mg tablet 75 mg PO QAM tramadol 50 mg tablet 50 mg PO Q6 PRN (Reason: Pain, Severe) lorazepam 1 mg tablet 1 mg PO HS PRN (Reason: Anxiety/insomnia) fluoxetine 20 mg capsule 20 mg PO DAILY Rx Instructions: TOTAL DOSE 60 MG--TAKES WITH 40 MG CAP. rizatriptan 10 mg Tablet 10 mg PO UD PRN (Reason: Migraine Headache) calcium carbonate 500 mg calcium (1,250 mg) Tablet,Chewable 500 mg PO DIRECTED PRN (Reason: HEARTBURN/INDIGESTION) albuterol sulfate 90 mcg/actuation HFA aerosol inhaler 2 puff INHALATION Q4 PRN (Reason: Wheezing) bupropion HCl 150 mg tablet extended release 24 hr 150 mg PO DAILY Centrum Silver 0.4 mg-300 mcg- 250 mcg Tablet 1 tab PO DAILY pantoprazole 40 mg Tablet,Delayed Release (Dr/Ec) 40 mg PO BID Qty: 60 0RF buspirone 5 mg tablet 5 mg PO QDL Rx Instructions: at noon olanzapine 2.5 mg tablet 2.5 mg PO DAILY losartan 25 mg tablet 25 mg PO DAILY trazodone 50 mg Tablet 50 mg PO HS acetaminophen [Tylenol 8 Hour] 650 mg Tablet Extended Release 1,300 mg PO BID propranolol 80 mg capsule,extended release 24hr 80 mg PO DAILY Boost Liquid 1 ea PO BID diclofenac sodium 1 % Gel 2 g TOPICAL BID Rx Instructions: APPLY TO RIGHT KNEE Referrals Referrals: Zaid Arnold DO [Primary Care Provider] - Discharge Problem: Fall Qualifiers: Encounter type: initial encounter Qualified Code(s): W19.XXXA - Unspecified fall, initial encounter
[2024-09-30 14:56] LABS: Albumin Level 4.2 gm/dl (3.4-5.0); Bilirubin,Total 0.6 mg/dl (0.2-1.0); Calcium 9.3 mg/dl (8.6-10.3); Potassium 4.4 mmol/L (3.5-5.1)
[2024-09-30 15:02] LABS: Albumin Globulin Ratio 1.4 (0.9-2); Globulin 2.9 gm/dl (2.5-4.0); Total Protein 7.1 gm/dl (6.0-8.3)
[2024-09-30 15:16] LABS: Partial Thromboplastin Time 28 Seconds (21-31); Prothrombin Time 10.9 Seconds (9.0-12.0)
--- NOTE | 2024-09-30 15:52 | History & Physical Report ---
Date of Service September 30, 2024 Assessment & Plan (1) Right sided weakness: (2) Confusion: (3) Dizziness: (4) Depression: (5) HTN (hypertension): (6) Dyslipidemia: (7) Diabetes mellitus, type II: (8) COPD (chronic obstructive pulmonary disease): (9) Migraine: Plan 74 year old male with PMH significant for DMII, HTN, HLD, COPD, migraine, depression, and history of L pontine stroke who presented to the ED today with confusion, right sided weakness, and slurred speech who is being admitted for a stroke workup. Right sided weakness History of L pontine CVA Patient with weakness in RUE and RLE Unknown if this is related to previous L pontine stroke or new weakness Stroke workup pending: -Head CT negative -MRI w/wo contrast pending -Carotid duplex bilateral pending -Echo ordered -A1C 5.9 on 09/06/24 per records -Lipid panel: Chol 120 LDL 53 HDL 42 Tri 124 on 09/06/2024 per records -PT/OT/ST consults -Neuro checks q4hr -Consult neuro - appreciate recs -Continue plavix and atorvastatin Confusion Could be due to stroke, post-fall concussion, declining neurocognitive function, polypharmacy Patient seen by Neurology Dr. Holm outpatient with workup ongoing (EEG negative for epilepsy per records) and follow up appointment scheduled for 01/23/[address] negative Labs unremarkable including CBC, CMP, mag CXR negative No signs of infection UA pending TSH, vitamin B12, lyme screen pending Dizziness Could be due to stroke, post-fall concussion, polypharmacy Check orthostatics Depression/anxiety Continue bupropion, buspirone, fluoxetine, trazodone, lorazepam Psych consult for concern of polypharmacy Started on olanzapine on 09/16 by PCP for skin picking disorder Hold olanzapine due to new confusion Hypertension Hold losartan due to stroke workup Dyslipidemia Lipid panel: Chol 120 LDL 53 HDL 42 Tri 124 on 09/06/2024 per records Continue atorvastatin DMII Diet controlled A1C 5.9 on 09/06/24 per records COPD Controlled Albuterol PRN GERD Continue pantoprazole and tums PRN Migraine Controlled Continue rizatriptan PRN Hold propranolol due to stroke workup and bradycardia DVT Prophylaxis: SQ Heparin Code Status: FULL CODE - As per discussion at bedside with the patient. PCP: Dr Zaid Arnold DO Disposition: admit to [facility] Patient seen in collaboration with Dr Perez. Please see addendum. I spent a total of 75 minutes coordinating, documenting and providing care for this patient excluding time spent in the performance of separately billed services or time spent by another provider/QHP. Admission and Anticipated Discharge Date Admission Date: 09/30/2024 History of Present Illness Chief Complaint: confusion, right sided weakness Primary Care Provider: Zaid Arnold DO 74 year old male with PMH significant for DMII, HTN, HLD, COPD, migraine, depression, and history of L pontine stroke who presented to the ED today with confusion, right sided weakness, and slurred speech. Patient is a poor historian and most of history was obtained from patient's . She reports that he had a fall on Thursday while doing yard work and must have hit his head because she noticed dried blood on his face when he came inside. She reports he has been dizzy and lightheaded in the morning since Thursday. She also reports that he has been extremely weak and having slurred speech for the last 10 days (prior to the fall). She reports that he has not been able to complete physical therapy sessions due to weakness and states that his speech is "sick tongue" and sounds like he has "a rock in his mouth". She also reports that he has been increasingly confused including orientation, word finding, and tasks but notes this has been going on for a few weeks. He was seen as a new patient by Neurology on 09/13 for memory problems and has an outpatient workup pending including an EEG that was negative for epilepsy and MRI scheduled for 10/13. Patient went to his PCP yesterday for the above ongoing symptoms who recommended immediate ER evaluation for imaging to rule out bleeding or stroke. Patient denies headaches, blurry vision, diplopia, fevers, chills, cough, cold symptoms, chest pain, SOB, abdominal pain, N/V/D, numbness/tingling. He has been taking all of his medications as prescribed. His notes that he takes multiple psych medications because his behavior has been "out of control" in the past and he needs all of them to stay in check. He was recently started on olanzapine on 09/16 by his PCP for skin picking disorder. Allergies Allergy/AdvReac Type Severity Reaction Status Date / Time latex Allergy Intermediate Rash Verified 09/30/24 15:44 tetracycline Allergy Intermediate RASH Verified 09/30/24 15:44 Home Medications Medication Instructions Recorded Confirmed Type albuterol sulfate 90 mcg/actuation 2 puff inhalation Q4 PRN Wheezing 09/08/21 09/30/24 History aerosol inhaler atorvastatin 40 mg tablet 40 mg PO DAILY 09/08/21 09/30/24 History bupropion HCl 150 mg 24 hr tablet, 150 mg PO DAILY 09/08/21 09/30/24 History extended release calcium carbonate 500 mg PO DIRECTED PRN 09/08/21 09/30/24 History HEARTBURN/INDIGESTION clopidogrel 75 mg tablet 75 mg PO QAM 09/08/21 09/30/24 History fluoxetine 20 mg capsule 20 mg PO DAILY 09/08/21 09/30/24 History fluoxetine 40 mg capsule 40 mg PO DAILY 09/08/21 09/30/24 History lorazepam 1 mg tablet 1 mg PO HS PRN Anxiety/insomnia 09/08/21 09/30/24 History wnvasdku-wmk-sqiun acid 0.4 1 tab PO DAILY 09/08/21 09/30/24 History mg-lycopene 300 mcg-lutein 250 mcg tablet (Centrum Silver) rizatriptan 10 mg tablet 10 mg PO UD PRN Migraine Headache 09/08/21 09/30/24 History tramadol 50 mg tablet 50 mg PO Q6 PRN Pain, Severe 09/08/21 09/30/24 History pantoprazole 40 mg tablet,delayed 40 mg PO BID #60 tabs 09/20/21 09/30/24 Rx release acetaminophen 650 mg 1,300 mg PO BID 09/30/24 09/30/24 History tablet,extended release (Tylenol 8 Hour) buspirone 5 mg tablet 5 mg PO QDL 09/30/24 09/30/24 History diclofenac sodium 1 % topical gel 2 g topical BID 09/30/24 09/30/24 History food supplemt, lactose-reduced 1 ea PO BID 09/30/24 09/30/24 History losartan 25 mg tablet 25 mg PO DAILY 09/30/24 09/30/24 History olanzapine 2.5 mg tablet 2.5 mg PO DAILY 09/30/24 09/30/24 History propranolol 80 mg capsule,24 80 mg PO DAILY 09/30/24 09/30/24 History hr,extended release trazodone 50 mg tablet 50 mg PO HS 09/30/24 09/30/24 History Past Med/Surg History Problem List (Updated 09/30/24 @ 18:31 by DARNELL Oliveira) Dizziness Right sided weakness Confusion Migraine COPD (chronic obstructive pulmonary disease) Depression (Chronic) HTN (hypertension) (Chronic) Dyslipidemia (Chronic) Diabetes mellitus, type II (Chronic) Medical History (Updated 09/30/24 @ 18:31 by DARNELL Oliveira) AAA (abdominal aortic aneurysm) without rupture Obstructive sleep apnea on CPAP Left pontine CVA Hip pain Pancreatitis Encounter for pre-operative examination Abdominal pain Duodenal ulcer Acute blood loss anemia Acute upper GI bleed Gastric outlet obstruction Abdominal pain, acute, epigastric Nausea & vomiting Syncope and collapse H/O asbestos exposure H/O restrictive lung disease History of CVA (cerebrovascular accident) "05/2015", no residual deficit H/O migraine with aura History of tobacco abuse Slurred speech DJD (degenerative joint disease) DJD (degenerative joint disease), multiple sites Surgical History History of AAA (abdominal aortic aneurysm) repair History of right hip replacement "01/2015" History of lumbar laminectomy "2000,2001,2004,2006" History of colonoscopy Social History (Updated 09/30/24 @ 17:41 by DARNELL Oliveira) Smoking Status: Former smoker Second Hand Exposure: No; Hx Alcohol Use: No Hx Substance Use: No Preferred Language: Portuguese Chief Commercial Officer Required: No Beliefs That Will Affect Care: None Current Living Situation: Spouse Current Living Situation Comment: Lives w/ Feels Safe at Home: Yes Assistive Devices: Cane, Glasses and Walker Review of Systems Review of Systems: All systems reviewed & are unremarkable except as noted in HPI & below Physical Exam Physical Exam: General/Psych: WD/WN, sitting up in bed, NAD, conversing easily, euthymic affect Head: normocephalic, atraumatic Eyes: normal inspection, PERRL, conjunctivae pink, anicteric sclerae ENT: external ear and nose normal, oropharynx normal Neck: normal visual inspection, trachea midline, no thyromegaly Respiratory: normal respiratory effort, lungs clear to auscultation, no wheeze/rales/rhonchi, no accessory muscle use Cardiovascular: regular rate and rhythm, no murmur/rub/gallop, no JVD Extremities: no cyanosis or clubbing, normal peripheral pulses, no BLE edema Abdomen/GI: normal bowel sounds, soft, nontender, no hepatosplenomegaly Neurologic/MSK: A+Ox3, CN's II-XI intact bilaterally, motor strength 4/5, moves all extremities, 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, decreased strength in right leg Skin: no rashes, normal color, warm and dry Results & Data Results & Data Vital Signs (Past 12 Hours) Vital Signs Temp Pulse Resp BP Pulse Ox O2 Del Method 09/30/24 15:00 57 L 15 148/79 H 95 09/30/24 14:42 58 L 17 92 09/30/24 14:36 60 15 93 09/30/24 14:30 152/79 H 09/30/24 14:30 152/79 H 09/30/24 14:27 54 L 17 95 09/30/24 14:27 56 L 09/30/24 14:24 55 L 14 95 09/30/24 13:50 Room Air 09/30/24 13:50 Room Air 09/30/24 12:19 36.8 C 69 20 173/87 H 98 Room Air Laboratory Results Short CBC 09/30/24 Range/Units 13:38 WBC 8.28 (4.8-10.8) K/ul Hgb 15.3 (14.0-18.0) g/dl Hct 45.2 (42.0-52.0) % Plt Count 250 (130-400) K/uL BMP 09/30/24 13:38 Sodium 141 Potassium 4.4 Chloride 106 Carbon Dioxide 29 BUN 20 Creatinine 0.74 Glucose 96 Calcium 9.3 Liver Function 09/30/24 Range/Units 13:38 Total Bilirubin 0.6 (0.2-1.0) mg/dl AST 32 (13-39) U/L ALT 21 (7-52) U/L Alkaline Phosphatase 92 (34-104) U/L Albumin 4.2 (3.4-5.0) gm/dl I have independently reviewed and interpreted patient's admitting labs including CBC, CMP, PTT, PT/INR, mag and troponin. Diagnostic Findings Chest X-Ray 09/30/24 12:30 XR chest 1V not portable HISTORY: 74 years-old Male stroke alert acute stroke like symptoms COMPARISON: 09/12/2021 TECHNIQUE: PA view of the chest FINDINGS: Cardiomediastinal and hilar silhouettes are within normal limits. No pneumothorax, pleural effusion or airspace consolidation. Right shoulder arthroplasty. Partially imaged lumbar spinal fusion hardware. IMPRESSION: No acute process. ACT 112: Negative or not required by law. The above report was generated using voice recognition software. It may contain grammatical, syntax or spelling errors. Electronically signed by: Uli Whitman M.D. 09/30/2024 1:[address] 09/30/24 12:30 CT SCAN OF THE BRAIN WITHOUT IV CONTRAST CLINICAL HISTORY: Fall. Right-sided weakness. COMPARISON STUDY: MRI of the brain May 26, 2015. Head CT March 01, 2022. TECHNIQUE: Unenhanced axial CT scan of the brain was performed from the vertex to the skull base. A dose lowering technique was utilized adhering to the principles of ALARA. CT DOSE: 625.8 mGy.cm FINDINGS: Brain parenchyma: No acute intracranial hemorrhage, midline shift or mass effect is present. Ha-white matter differentiation is preserved. There are no extra- axial fluid collections. There are no findings to suggest acute dural sinus thrombosis or acute territorial infarct. White matter hypodensities favor small vessel disease. Ventricles, sulci, cisterns: The ventricular system is stable. The basal cisterns are patent. Calvarium: Unremarkable. Sinuses and mastoids: The visualized paranasal sinuses are clear. The mastoid air cells are well pneumatized. Orbits: The bony orbits are grossly intact. IMPRESSION: 1. No acute intracranial findings. 2. No calvarial fractures. ACT 112: Negative or not required by law. Electronically signed by: Uli Hernandez M.D. 09/30/2024 1:24 PM ECG Additional Comments: I have independently reviewed and interpreted patient's admitting EKG which revealed: Sinus bradycardia at a rate of 58bpm Code Status & VTE Plan Code Status Full Code Supervising Physician Co-Signing Physician Notes Patient is a 74-year-old male with history of CVA with right hemiparesis, hypertension, hyperlipidemia, COPD, AAA S/P surgery and other medical problems presents with history of worsening right-sided weakness, confusion and dizziness and change in speech with some word finding difficulty. Patient is a poor historian. History is also obtained from patient's at bedside. Reports history of fall on Thursday while doing yard work resulting in head trauma but unsure whether he had syncopal episode at the time. He feels his right sided weakness is more worse and he has been also complaining of some dizziness which is positional. Patient denies any facial deformity, dysphagia, odynophagia, numbness or tingling, bowel or bladder incontinence, change in vision. He was started on olanzapine 2 weeks ago by his PCP to help with skin picking disorder. Please review HPI for complete details of presentation. I personally reviewed blood work and imaging studies. Blood work within normal limits. Urinalysis currently pending. CT head showed no acute intracranial findings. Chest x-ray showed no acute process. Physical Exam: Vitals signs as noted above General Appearance:Moderately built and nourished, no apparent distress Head: normocephalic, Atraumatic Eyes: normal inspection, EOMI Neck: supple, Trachea midline Respiratory/Chest: Normal breath sounds, CTA, No accessory muscle use Cardiovascular: S1, S2, No murmur, bradycardia Abdomen/GI:Soft, Non tender, Bowel sounds present Extremities/Musculoskeletal:normal inspection, no edema Neurologic/Psych:AAOX3, ? Word finding difficulty, RUE 4/5, RLE 3-4/5, no facial droop, no clonus Skin: normal color, warm Strokelike symptoms Altered mental status/confusion likely multifactorial Sinus bradycardia likely due to propranolol use Mechanical fall Suspected polypharmacy Reviewed outpatient lipid panel, A1c Agree with stroke workup including MRI brain, echo, carotid ultrasound Will request PT OT, speech eval Will hold olanzapine for now Requested neurology, psychiatry evaluation Will hold propranolol, losartan for now Allow permissive hypertension Check orthostatics Urinalysis pending Also check TSH, B12 levels, lyme screen Received aspirin in ED Continue Plavix, Lipitor I personally interviewed and examined the patient at bedside. I have reviewed the advanced practitioner's documentation on the date of service referred in note and agree with plan. Patient's care is coordinated with Laura PATRICK. Please refer to the documentation above for details of patient's presentation and for discussion of other issues. I spent a total [id number] coordinating, documenting, and providing care for this patient excluding time spent in the performance of separately billed services or time spent by another provider/QHP.
[2024-09-30] MEDS: ASPIRIN CHEW 324 MG PO STA (16:11)
[2024-09-30] MEDS: SODIUM CHLORIDE 0.9% 500 ML IV ONE (16:14)
--- OUTSIDE RECORDS SUMMARY | 2024-09-30 16:24 | External Medical Summary | Summary of Care ---
Author Name Unknown Organization [facility] Address [address] [place] [address] Phone [phone] Care Team Providers Care Licensed Marriage And Family Therapist Name Role Phone Clayton Zaid Julian SNOW Primary Care Provider [phone] Reason for Visit * Reason Comments Weakness, Generalized Encounter Details Date Type Department Care Team (Late st Contact Info) Description 09/29/2024 1:40 PM EDT Office Visit Family Practice [facility] [address] [place] [address] Ana Paula Julian PA-C [address] [place] [address] Accidental fall, initial encounter*; Right sided weakness; Dizziness; History of CVA (cerebrovascular accident); HTN, goal below 140/90 Allergies Active Allergy Reactions Criticality Noted Date Comments Latex Rash 11/17/2017 Powdered latex Tetracycline 12/31/1999 rash documented as of this encounter (statuses as of 09/29/2024) Medications CENTRUM SILVER PO TABS Take by mouth . 0 9 Active TUMS 500 MG PO CHEW Take by mouth . 1 bottle 11 9 Active ONETOUCH ULTRA SYSTEM W/DEVICE KITIndications:DM type 2, not at goal (HCC) Use up to four times a day as directed 1 0 9 Active OneTouch UltraSoft Lancets MISC Onetouch Ultrasoft Lancets Active OneTouch Ultra Blue In Vitro Strip (Glucose Blood) use to TEST UP TO four times a day as directed. E11.9 400 Strip 3 1 Active Rizatriptan Benzoate 10 MG Oral Tablet Take 1 Tablet by mouth as needed for Migraine. Active Diclofenac Sodium 1 % External Gel (Voltaren)Indicatio ns:Chronic pain of right knee Apply topically to affected area 2 times a day. Apply to right knee 100 g 5 3 Active OneTouch Ultra In Vitro Strip (Glucose Blood) Use to test blood sugar up to 4 times daily. Dx E11.9 100 Strip 5 4 Active Albuterol Sulfate HFA 108 (90 Base) MCG/ACT Inhalation Aerosol SolutionIndications :Wheezing inhale 2 puffs by mouth every 4 hours if needed for wheezing 18 g 5 4 Active Atorvastatin Calcium 40 MG Oral Tablet (Lipitor)Indication s:Type 2 diabetes mellitus with hemoglobin A1c goal of less than 7.0% (HCC),Left pontine cerebrovascular accident (HCC) Take 1 Tablet by mouth in the morning. 90 Tablet 1 4 Active Propranolol HCl ER 80 MG Oral Capsule Extended Release 24 Hour (Inderal LA) Take 1 Capsule by mouth in the morning. 90 Capsule 3 4 Active Losartan Potassium 25 MG Oral Tablet (Cozaar)Indications :HTN, goal below 140/90 Take 1 Tablet by mouth in the morning. In the morning.. 90 Tablet 2 4 Active traZODone HCl 50 MG Oral Tablet (Desyrel) Take 1 Tablet by mouth at bedtime. 90 Tablet 1 4 Active FLUoxetine HCl 40 MG Oral Capsule (PROzac)Indications :Depression, unspecified depression type TAKE 1 CAPSULE BY MOUTH ONCE DAILY 90 Capsule 1 4 Active buPROPion HCl ER (XL) 150 MG Oral Tablet Extended Release 24 Hour (Wellbutrin XL) TAKE 1 TABLET BY MOUTH EVERY MORNING 30 Tablet 5 4 Active FLUoxetine HCl 20 MG Oral Capsule (PROzac)Indications :Dysthymia TAKE 1 CAPSULE BY MOUTH EVERY MORNING 90 Capsule 2 4 Active Pantoprazole Sodium 40 MG Oral Tablet Delayed Release (Protonix) TAKE 1 TABLET BY MOUTH EVERY MORNING AND 1 TABLET BEFORE BEDTIME 60 Tablet 5 5 Active LORazepam 1 MG Oral Tablet (Ativan) Take 1 tablet by mouth BEFORE BEDTIME if needed for anxiety 30 Tablet 2 5 Active Clopidogrel Bisulfate 75 MG Oral Tablet (pLAVix)Indications :Left pontine cerebrovascular accident (HCC) TAKE 1 TABLET BY MOUTH EVERY MORNING 90 Tablet 5 Active busPIRone HCl 5 MG Oral Tablet (Buspar) Take 1 Tablet by mouth daily at noon. 30 Tablet 5 5 Active Acetaminophen ER 650 MG Oral Tablet Extended Release (Acetaminophen 8 Hour) Take 2 Tablets by mouth 2 times a day. Active Boost Oral Liquid One bottle twice daily Active OLANZapine 2.5 MG Oral TabletIndications:E xcoriation (skin-picking) disorder Take 1 Tablet by mouth in the morning. 30 Tablet 5 5 Active traMADol HCl 50 MG Oral Tablet (Ultram)Indications :Bilateral hip pain,Spinal stenosis of lumbar region without neurogenic claudication Take 1 Tablet by mouth every 6 hours as needed for Pain, Severe. 60 Tablet 5 Active documented as of this encounter (statuses as of 09/29/2024) Active Problems Problem Noted Date Diagnosed Date COPD, group C, by GOLD 2017 classification 09/12 Overview: Per COPD GOLD Classification COPD exacerbation 09/06/2024 Excoriation (skin-picking) disorder 09/06/2024 Type 2 diabetes mellitus wit h diabetic mononeuropathy, without long-term current use of insulin 10/19/2023 Protein-calorie malnutrition 07/10/2022 Emphysema lung 08/12/2018 Type 2 diabetes mellitus with diabetic polyneuro tomás 08/12/2018 Hemiplegia and hemiparesis f ollowing cerebral infarction affecting right dominant side 05/04/2018 Dysthymia 05/19/2017 Abdominal aortic aneurysm (AAA) without rupture 12/10/2016 MEDICATION USE AGREEMENT 04/04/2016 CHARLES (obstructive sleep apnea) 07/09/2015 Overview (09/12/2015): CPAP 6 cwp (APAP trial) PSG 2014 - AHI 20.9, desats 29 mins DHC 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 5 Overview (02/21/2015): Holger Osman MD at [facility] Dyslipidemia 12/22/2014 Angioma 07/27/2013 Type 2 diabetes mellitus wit h hemoglobin A1c goal of less than 7.0% 03/27/2011 Overview (09/25/2015): ICD-10 update of inactive term History of Clostridium difficile infection 11/29 Overview (03/31/2012): Hospitalized at [facility] History of colonic polyps 03/14/2009 Overview (03/18/2009): 5 mm ceacal adenoma, repeat 3-5 yers SPINAL STENOSIS-LUMBAR 01/25/2001 CLASSICAL MIGRAINE WITHOU MENTION OF INTRACTABLE MIGRAINE Diverticulosis of colon documented as of this encounter (statuses as of 09/29/2024) Resolved Problems Problem Noted Date Diagnosed Date Resolved Date Marital stress 10/09/2020 10/01/2021 Adrenal mass, right 10/01/2017 09/12/19 23 Seborrheic keratosis 07/27/2013 017 BENIGN NEOPLASM LG BOWEL 03/14/2009 Overview (05/10/2014): 05/08/14: diverticulosis, repeat in 5 years 05/19/09: adenomatous/repeat colonoscopy in 5 yrs ELEVATED GLUCOSE FASTING 02/27/200906/2008 ADVANCE DIRECTIVE INFORMATION 10/15/2004 04/04/2024 Overview (10/15/2004): No, Advance Directive brochure given to patient. Family history of other card iovascular diseases 08/24/2003 05/19/2017 Overview (08/23/2015): ICD-10 update of inactive term FAM HX-DIABETES MELLITUS 08/24/2003 Screening for prostate cancer 08/24/2003 08/09/2008 Overview (08/09/2008): Resolved per Screening Diagnosis Protocol #6 CHRONIC OBSTRUCTIVE ASTHMA ( WITH OBSTRUCTIVE PULMONARY DISEASE); WITH STATUS A 02/04/20022015 Nonallopathic lesion of abdo men and other sites, not elsewhere classified 12/15/2000 05/19/20 17 LUMB-LUMBOSAC DISC DEGEN DM type 2, not at goal 05/11 documented as of this encounter (statuses as of 09/29/2024) Immunizations Name Administration Dates Next Due COVID-19 mRNA, LNP-s, No Pre serve, 2-Dose Series (Moderna) 05/01/2021,08/08/2020,06/30/2020 Pneumococcal Conjugate Vacc, 13 Valent (Prevnar) 03/15/2015 Pneumococcal Polysaccharide PPV23 (Pneumovax) 11/25/2016,02/27/2009 Seasonal Influenza Vac., MDV , IM, 0.5 mL (Fluzone) 03/28/2014,05/11/2013,03/31/2012,04/01,03/06/2010,02/27/2009 Seasonal Influenza, High Dos e, Trivalent, PF, IM (Fluzone HD) 05/19/2017 Seasonal Influenza, PF, 6 M & above, IM , (FluLaval or Fluzone) 05/04/2018 Seasonal Influenza, Quadriva lent Hd (Fluzone Hd) 03/23/2023,04/12/2021 Seasonal Influenza, Quadriva lent, No Preserve, IM 04/04/2016,03/15/2015 Seasonal Influenza, Trivalen t, Adjuvanted, 65+ YRS, PF, (Fluad) 04/04/2019 TD - Tetanus/Diptheria (ADULT) 08/24/2003 TDAP, Age 7 and older, IM (Adacel) 03/27/2011 documented as of this encounter Social History Tobacco Use Types Packs/Day Years Used Date Smoking Tobacco: Former Cigarettes 2 40 0 08/30/1961 - 08/30/2001 Smokeless Tobacco: Never Alcohol Use Standard Drinks/Week Comments No 0 (1 standard drink = 0.6 oz pur e alcohol) PHQ-2 Answer Date Recorded PHQ Adult Total Score 0 04/29/2022 Hunger Vital Sign Answer Date Recorded Within the past 12 months, y ou worried that your food would run out before you got the money to buy more. Never true 09/06/19 25 Within the past 12 months, t he food you bought just didn't last and you didn't have money to get more. Never true 09/05/2024 Childcare Answer Date Recorded Do you feel overwhelmed with taking care of a child, family member or friend? No 09/05/2024 Does your family need help f inding childcare? (Household - for ages 0-17 years) Not on file 09/05/2024 Clothing Answer Date Recorded Have you been unable to get clothing when it was really needed? No 09/05/2024 Is your family able to get c lothes or diapers when needed? (Household - for ages 0-17 years) Not on file 09/05/2024 Personal Safety Answer Date Recorded Do you feel unsafe or have concerns for your saf ety? No 09/05/2024 Do you have concerns for you r family's safety? (Household - for ages 0-17 years) Not on file 09/05/2024 Utilities Answer Date Recorded Do you have trouble paying y our heating, water, or electric bill? Yes 09/05/2024 Is your family able to pay t he heat, water, or electric bill? (Household - for ages 0-17 years) Not on file 09/05/2024 Does your family have access to good internet? (Household - for ages 0-17 years) Not on file 09/05/2024 Employment Status Answer Date Recorded Are you unemployed or without regular income? No 09/05/2024 Does the household have a re gular source of income? (Household - for ages 0-17 years) Not on file 09/05/2024 Social Connections Answer Date Recorded How often do you feel lonely or isolated from th ose around you? Rarely 09/05/2024 Financial Resource Strain Answer Date R ecorded Do you have any trouble payi ng for your medications, or do you think you might in the future? No 09/05/2024 Does your family have troubl e paying for medicine? (Household - for ages 0-17 years) Not on file 09/05/2024 Transportation Needs Answer Date Record ed Do you have trouble getting a ride to medical visits or work? (Adult - for ages 18 years and over) Not on file 09/05/2024 Does your family have a hard time getting a ride to doctors visits? (Household - for ages 0-17 years) Not on file 09/05/2024 Has lack of transportation k ept you from medical appointments, meetings, work, or from getting things needed for daily living? Check all that apply. No 09/05/2024 Do you (or your family) have trouble finding or paying for a ride (transportation)? (Household - for ages 0-17 years) Not on file 09/05/2024 Housing Stability Answer Date Recorded Do you currently live in a s helter or have no steady place to sleep at night? No 09/05/2024 Do you think you are at risk of becoming homeless? (Adult - for ages 18 years and over) Not on file 09/05/2024 Does your family worry about paying for your home or becoming homeless? (Household - for ages 0-17 years) Not on file 0 09/05/2024 Are you homeless or worried that you might be in the future? No 09/05/2024 Are you (or your family) agustin eless or worried that you might be in the future? (Household - for ages 0-17 years) Not on file Food Insecurity Answer Date Recorded Within the past 12 months, y ou worried that your food would run out before you got the money to buy more. Never true 09/06/19 25 Within the past 12 months, t he food you bought just didn't last and you didn't have money to get more. Never true 09/05/2024 Do you need food for this week? No 09/05/2024 Sex and Gender Information Value Date Recorded Sex Assigned at Male 08/26/2023 3:53 AM EDT Legal Sex Male 6:00 AM EST Gender Identity Male 08/26/2023 3:53 AM EDT Sexual Orientation Straight 09/05/2024 9: 52 AM EDT Occupation Industry Job Start Date Job End Date retired, disability for back pain, surgery Not on file Not on file Not on file documented as of this encounter Last Filed Vital Signs Vital Sign Reading Time Taken Comments Blood Pressure 171/74 09/29/2024 1:49 PM EDT Pulse 63 09/29/2024 1:49 PM EDT Temperature 36.8 °C (98.2 °F) 09/29/2024 1:49 PM ED T Respiratory Rate 16 09/29/2024 1:49 PM EDT Oxygen Saturation - - Inhaled Oxygen Concentration - - Weight 74.4 kg (164 lb) 09/29/2024 1:49 PM EDT Height - - Body Mass Index 25.93 10/07/2023 12:11 PM EDT documented in this encounter Functional Status * Are you deaf or do you have serious difficulty hearing? Answer Date of Assessment Author No 11/17/2017 6:28 PM EDT Heidy Melgar RN * Are you blind or do you have serious difficulty seeing, even when wearing glasses? Answer Date of Assessment Author No 11/17/2017 6:28 PM EDT Heidy Melgar RN * Do you have serious difficulty walking or climbing stairs? (5 years old or older) Answer Date of Assessment Author No 11/17/2017 6:28 PM ELISAT Heidy Melgar RN * Do you have difficulty dressing or bathing? (5 years old or older) Answer Date of Assessment Author No 11/17/2017 6:28 PM EDT Heidy Melgar RN * Because of a physical, mental, or emotional condition, do you have difficulty doing errands alone such as visiting a doctor’s office or shopping? (15 years old or older) Answer Date of Assessment Author No 11/17/2017 6:28 PM ELISAT Heidy Melgar RN documented as of this encounter Mental Status * Because of a physical, mental, or emotional condition, do you have serious difficulty concentrating, remembering, or making decisions? (5 years old or older) Answer Entry Date Author No 11/17/2017 6:28 PM ELISAT Heidy Melgar RN documented in this encounter Progress Notes * Ana Paula Julian PA-C - 09/29/2024 11:15 AM EDT Images from the original note were not included. Subjective Edi Zaldivar Sr. is a 74 year old male that presents for Weakness, Generalized History of Present Illness Edi Zaldivar Sr. 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 He is accompanied by his . Over the past week and a half, he has experienced new symptoms including dizziness, slurred speech,and increased weakness on the right side of his body. His has noted a decline in his cognitiveskills and speech clarity. He has a history of a brain stem stroke from 2017 or 2018, which left him with baseline right-sided weakness. The dizziness began about five days ago, while slurred speech and cognitive difficulties started around a week and a half ago. He experienced a fall this past Thursday while doing yard work, falling onasphalt and having to roll over to the grass to get up. He does not recall if he lost consciousnessor hit his head during the fall. He denies headaches but mentions discomfort in the middle of his head, present for about six months. He reports feeling more wobbly and having difficulty with balance, which has worsened recently. He uses a walker at home and lives in a split-level house, requiring him to navigate stairs. He typically uses a cane but has a walker available upstairs. Review of Systems Constitutional: Negative for chills, fatigue and fever. HENT: Negative for congestion, ear pain, rhinorrhea and sore throat. Eyes: Negative for pain. Respiratory: Negative for cough, shortness of breath and wheezing. Cardiovascular: Negative for chest pain and palpitations. Gastrointestinal: Negative for abdominal pain, diarrhea, nausea and vomiting. Musculoskeletal: Positive for gait problem. Negative for arthralgias. Skin: Negative. Neurological: Positive for dizziness, syncope, speech difficulty, weakness, numbness and headaches.Negative for tremors and seizures. Psychiatric/Behavioral: The patient is not nervous/anxious. Objective BP 171/74 | Pulse 63 | Temp 98.2 °F (36.8 °C) | Resp 16 | Wt 164 lb (74.4 kg) | BMI 25.93 kg/m² | BSA 1.87 m² Physical Exam Physical Exam Vitals and nursing note reviewed. Constitutional: Appearance: Normal appearance. Comments: Using cane HENT: Head: Normocephalic and atraumatic. Right Ear: Tympanic membrane and external ear normal. Left Ear: Tympanic membrane and external ear normal. Nose: Nose normal. Mouth/Throat: Mouth: Mucous membranes are moist. Pharynx: Oropharynx is clear. Eyes: Pupils: Pupils are equal, round, and reactive to light. Cardiovascular: Rate and Rhythm: Normal rate and regular rhythm. Pulmonary: Effort: Pulmonary effort is normal. No respiratory distress. Breath sounds: Normal breath sounds. Chest: Chest wall: No tenderness. Abdominal: General: Bowel sounds are normal. Palpations: Abdomen is soft. Tenderness: There is no abdominal tenderness. Musculoskeletal: Cervical back: Neck supple. No tenderness. Lymphadenopathy: Cervical: No cervical adenopathy. Skin: General: Skin is warm and dry. Neurological: Mental Status: He is alert and oriented to person, place, and time. Motor: Weakness (weakness right upper extremity and right lower extremity) present. Gait: Gait abnormal. Psychiatric: Mood and Affect: Mood normal. Behavior: Behavior normal. Thought Content: Thought content normal. Results Assessment and Plan Assessment & Plan Right sided weakness, numbness, dizziness - Advise immediate ER evaluation for stat imaging to rule out acute stroke and brain bleed. Differential includes ischemic versus hemorrhagic stroke, especially after recent fall. History of brain stem stroke with baseline right- sided weakness, now worsened. Stroke Brain stem stroke in [id number] with residual right-sided weakness. Recent symptoms suggest possiblenew stroke event. Accidental fall, initial encounter (Primary) Right sided weakness Dizziness History of CVA (cerebrovascular accident) HTN, goal below 140/90 Discussed with patient and his , patient had worsening dizziness, posterior head pain, right sided weakness over the last 1.5 weeks. Progressed to having a fall 4 days ago, unknown if patient lost consciousness or hit his head. He should be evaluated in the ER for STAT imaging of brain, may need admitted with further work up due to symptoms. Patient and his expressed understanding. is driving patient to [facility] ER now. Wrap-Up Follow-up: Return if symptoms worsen or fail to improve. | Check-out note: Patient going to ER I spent a total of 40-54 minutes (exact time 47 mins) on the date of service in preparation, delivery, and documentation of the care provided to Edi Zaldivar Sr. excluding any time spent in the performance of separately billed services. Text in this note was generated using an ambient documentation service. I discussed the use of a device to record and summarize our discussion today. All persons present during the encounter consented to its use. Ana Paula Julian PA-C [facility] [address] [facility] [address] documented in this encounter Nursing Notes * Bebe Isaac RN - 09/29/2024 1:52 PM EDT Received an injection in his right knee and only lasted 2 days. In the last week decline in cognitive skills, light-headed in the mornings, speech impaired, memoryimpaired, weakness. Saw Dr. Arnold and Dr. Holm in the last week. documented in this encounter Miscellaneous Notes * Addendum Note - Ana Paula Julian PA-C - 09/29/2024 2:45 PM EDTAddended by: ANA PAULA JULIAN on: 09/29/2024 02:45 PM Modules accepted: Level of Service documented in this encounter Plan of Treatment Upcoming Encounters Date Type Department Care Team (Late st Contact Info) Description 10/13/2024 9:45 AM EDT Imaging Radiology [facility]st [facility] [address] [place] [phone] 10/19/2024 9:30 AM EDT Office Visit Orthopaedics [facility] [address] [place] [phone] Kayden Coppola, [address] [place] [phone] 01/26/2025 9:20 AM EDT Office Visit Neurology [facility] [address] [facility] [place] [phone] Mariangel Holm MD [address] [facility] [place] [address] 04/28/2025 4:00 PM EST Office Visit Family Practice [facility] [address] [facility] [place] [address] Zaid Arnold DO [address] [facility] [place] [address] Scheduled Procedures Name Priority Associated Diagnoses Date/Ti me COLONOSCOPY FLEXIBLE PROXIMAL DIAGNOSTIC Recall History of colon polyps Health Maintenance Due Date Last Done Comments Depression Monitoring 1962 Alpha-1 Antitrypsin 08/19/1969 Cologuard 08/19/1996 Fecal Occult Blood Test 08/19/1996 Sigmoidoscopy 08/19/1996 Zoster Vaccines (1 of 2) 08/19/2001 DTap/Tdap Vaccines (2 - Td or Tdap) 03/27/2021 03/27/2011, 08/24/2003 Adult Wellness Visit 08/24/2021 08/24/2020 Diabetic Eye Exam 08/01/2023 07/31/2022, , 07/30/2020, Additional history exists COVID-19 Vaccine ( season) 2024 05/01/2021, 08/08/2020, 06/30/2020 Diabetic Foot Exam 03/23/2024 03/23/2023, 1 , 08/24/2020, Additional history exists O2 ASSESSMENT COMPLETED IN PAST YEAR FOR COPD 10/14/2024 10/15/2023 Influenza Vaccine (FLU shot) (Season Ended) 2025 03/23/2023, 04/12/2021, 04/04/2019, Additional history exists HbA1c 03/08/2025 09/06/2024, 08/31, 03/23/2023, Additional history exists Colonoscopy 03/20/2025 03/20/2020, 03/02, 05/08/2014, Additional history exists Colorectal Cancer Screening 03/20/2025 Albumin/Creatinine Ratio 09/06/2025 025, 03/23/2023, 10/01/2021, Additional history exists GFR 09/06/2025 09/06/2024, 08/31, 08/26/2023, Additional history exists Pneumococcal Vaccine: 50+ Years Completed 11/25/2016, 03/15/2015, 02/27/2009 RETIRED - COLONOSCOPY-EVERY 5 YRS AGES 18-100 Discontinued 03/20/2020, 03/20/2020, 05/08/2014, Additional history exists HPV (Gardasil) Vaccine Aged Out No lo nger eligible based on patient's age to complete this topic Hepatitis B Vaccine Aged Out No longe r eligible based on patient's age to complete this topic MENINGOCOCCAL (MENACTRA/MENVEO) Aged Out No longer eligible based on patient's age to complete this topic Meningitis B Vaccine (Bexsero/Trumemba) Aged Out No longer eligible based on patient's age to complete this topic documented as of this encounter Medical Devices Implanted Type Area Satellite Communications Engineer Device Identifier Shelf Expiration Date Model / Serial / Lot Graft Bifur [id number] - [id number] - [id number] Implanted:Qty: 1 on 07/20/2017 by Holger Fair MD at [place] [facility] [place] N/A: Aorta [employer] : VASCULAR 03/31/2019 [id number] / [id number] / Limb Contralat [id number] - [id number] - [id number] Implanted:Qty: 1 on 07/20/2017 by Holger Fair MD at [place] [facility] [place] Left: Aorta [employer] : VASCULAR 04/27/2019 [id number] / [id number] / Aequalis Perform Cortiloc Pegged Glenoid Implanted:Qty: 1 on 11/17/2017 by Hong Becerra DO at [facility] Right: Shoulder [employer] 08/09/2020 [id number] / [id number] / Cement Bone Simplex Hv & G - [id number] Implanted:Qty: 1 on 11/17/2017 by Hong Becrera DO at [facility] Right: Shoulder JARED : ORTHOPAEDICS 12/29/2018 [id number] / / [id number] Y Flex Shoulder System Aequalis Humeral Head 52mm 19mm Implanted:Qty: 1 on 11/17/2017 by Hong Becerra DO at [facility] Right: Shoulder [employer] 06/10/2022 [id number] / [id number] / Standard Ptc Humeral Stem Implanted:Qty: 1 on 11/17/2017 by Hong Becerra DO at [facility] Right: Shoulder [employer] 04/10/2021 [id number] / [id number] / [place] Suture [employer]ocomposite - [id number] Implanted:Qty: 2 on 11/17/2017 by Hong Becerra DO at [facility] Right: Shoulder [employer] 10/29/2018 [id number] C / / [id number] Sut [place] Biocomp 4.75mm Min5 - [id number] Implanted:Qty: 1 on 11/17/2017 by Hong Becerra DO at [facility] Right: Shoulder [employer] 05/31/[id number] / / [id number] documented as of this encounter Visit Diagnoses Diagnosis Accidental fall, initial encounter- Primary Right sided weakness Muscle weakness (generalized) Dizziness Dizziness and giddiness History of CVA (cerebrovascular accident) Transient ischemic attack (TIA), and cerebral infarction without residual deficits HTN, goal below 140/90 Unspecified essential hypertension documented in this encounter Advance Directives Documents on File Type Date Recorded 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 Question Answer Comments Discussion of Advance Directives occurred with: Not Discussed * Full Code Date Activated Date Inactivated Comments 07/20/2017 9:18 AM 07/21/2017 3:33 PM This order r eflects the patients wishes and were consensually agreed upon. * No Code Status Date Activated Date Inactivated Comments 04/07/2005 7:34 AM 04/07/2005 8:34 AM Care Teams Licensed Marriage And Family Therapist Relationship Specialty Start Date End Date Zaid Arnold DO [address] [place] [address] [place], [place] [id number] PCP - General Family Medicine 11/14/16 documented as of this encounter"
--- OUTSIDE RECORDS SUMMARY | 2024-09-30 16:25 | External Medical Summary | Summary of Care ---
Author Name Unknown Organization [facility] Address [address] [place] [address] Phone [phone] Care Team Providers Care Kicking Machine Operator Name Role Phone Zaid Arnold DO Primary Care Provider [phone] Reason for Referral * Precert (Within 10 days (routine)) - Authorized Specialty Diagnoses / Procedures Referred By Leroy nazario Referred To Contact Radiology Diagnoses Cerebrovascular accident (CVA), unspecified mechanism (HCC) Memory changes Procedures MRI BRAIN W WO CONTRAST Mariangel Holm MD [address] [place] [address] Phone: tel: fax: Referral ID Status Reason Start Date Expiration Date V isits Requested Visits Authorized [id number] Authorized Precert 09/13/2024 11/12/2024 [id number] Reason for Visit * Reason Comments NEW PATIENT Stroke * Evaluate & Treat - Unlimited Visits (Within 30 days (routine)) - Authorized Specialty Diagnoses / Procedures Referred By Leroy nazario Referred To Contact Neurology Diagnoses Hemiplegia and hemiparesis following cerebral infarction affecting right dominant side (HCC) Memory loss due to medical condition Zaid Arnold DO [address] [place] [address] Phone: tel: fax: Referral ID Status Reason Start Date Expiration Date Visits Requested Visits Authorized [id number] Authorized Specialty Services Required 09/06/[phone] Encounter Details Date Type Department Care Team (Late st Contact Info) Description 09/13/2024 11:20 AM EDT Office Visit Neurology [facility] Karime Elliott [address] [facility] [place] [address] Mariangel Holm MD [address] [place] [id number] Cerebrovascular accident (CVA), unspecified mechanism (HCC)*; Memory changes; Idiopathic progressive polyneuropathy Allergies Active Allergy Reactions Criticality Noted Date Comments Latex Rash 11/17/2017 Powdered latex Tetracycline 12/31/1999 rash documented as of this encounter (statuses as of 09/13/2024) Medications CENTRUM SILVER PO TABS Take by [...] for anxiety 30 Tablet 2 5 Active traMADol HCl 50 MG Oral Tablet (Ultram)Indications :Bilateral hip pain,Spinal stenosis of lumbar region without neurogenic claudication Take 1 Tablet by mouth every 6 hours as needed for Pain, Severe 60 Tablet 5 Active Clopidogrel Bisulfate 75 MG Oral [...] the morning. 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 5 Overview (02/21/2015): Holger Osman MD at [facility] Dyslipidemia 12/22/2014 Angioma 07/27/2013 Type 2 diabetes mellitus wit h hemoglobin A1c goal of less than 7.0% 03/27/2011 Overview (09/25/2015): ICD-10 update of inactive term History of Clostridium difficile infection 11/29 Overview (03/31/2012): Hospitalized at [facility] History of colonic polyps 03/14/2009 Overview (03/18/2009): 5 mm ceacal adenoma, repeat 3-5 yers SPINAL STENOSIS-LUMBAR 01/25/2001 CLASSICAL MIGRAINE WITHOU MENTION OF INTRACTABLE MIGRAINE Diverticulosis of colon documented as of this encounter (statuses as of 09/13/2024) Resolved Problems Problem Noted Date Diagnosed Date [...] as of this encounter (statuses as of 09/13/2024) Immunizations Name Administration Dates Next Due COVID-19 [...] t, Adjuvanted, 65+ YRS, PF, (Fluad) 04/04/2019 TDAP, Age 7 and older, IM (Adacel) [...] Sign Reading Time Taken Comments Blood Pressure 132/76 09/13/2024 11:19 AM EDT Pulse 63 09/13/2024 11:19 AM EDT Temperature 36.9 °C (98.4 °F) 09/13/2024 11:19 AM E DT Respiratory Rate 16 09/13/2024 11:19 AM EDT Oxygen Saturation 95% 09/13/2024 11:19 AM EDT Inhaled Oxygen Concentration - - Weight 74.5 kg (164 lb 3.2 oz) 09/13/2024 11:19 AM EDT Height - - Body Mass Index 25.96 10/07/2023 12:11 PM EDT documented in this [...] of Assessment Author No 11/17/2017 6:28 PM Heidy June RN documented as of this encounter Mental Status * Because of a physical, mental, or emotional condition, do you have serious difficulty concentrating, remembering, or making decisions? (5 years old or older) Answer Entry Date Author No 11/17/2017 6:28 PM EDT Heidy Melgar RN documented in this encounter Progress Notes * Mariangel Holm MD - 09/13/2024 11:36 AM EDT HISTORY AND PHYSICAL EXAMINATION [place] [address] NAME: Edi Zaldivar Sr. Date of : 1950 Date of Visit: 09/13/24 Chief Complaint: Chief Complaint Patient presents with NEW PATIENT Stroke HPI: Edi Zaldivar Sr. is a 74 year old male presenting with memory loss. The patient himself recognizes that his memory is poor but the majority of his history is given by his an accompanying . Duration has been for at least a year timing is ongoing in the quality that is getting lost and behavioral changes including being verbally abusive and foul language, both of which are significant change for him. There have been no modifiers. Of note is that he had a stroke at least 5 years ago which his tells me was a brainstem stroke. He is on atorvastatin and clopidogrel but not aspirin. This apparently was stopped at some point, reasons unknown. He is on a host of medications for depression and behavioral control. He is diabetic. HOME MEDICATIONS : Current Outpatient Medications Medication Sig Dispense Refill CENTRUM SILVER PO TABS Take by mouth . 0 TUMS 500 MG PO CHEW Take by mouth . 1 bottle 11 Rizatriptan Benzoate 10 MG Oral Tablet Take 1 Tablet by mouth as needed for Migraine. Diclofenac Sodium 1 % External Gel (Voltaren) Apply topically to affected area 2 times a day. Applyto right knee 100 g 5 Albuterol Sulfate HFA 108 (90 Base) MCG/ACT Inhalation Aerosol Solution inhale 2 puffs by mouth every 4 hours if needed for wheezing 18 g 5 Atorvastatin Calcium 40 MG Oral Tablet (Lipitor) Take 1 Tablet by mouth in the morning. 90 Tablet 1 Propranolol HCl ER 80 MG Oral Capsule Extended Release 24 Hour (Inderal LA) Take 1 Capsule by mouthin the morning. 90 Capsule 3 Losartan Potassium 25 MG Oral Tablet (Cozaar) Take 1 Tablet by mouth in the morning. In the morning.. 90 Tablet 2 traZODone HCl 50 MG Oral Tablet (Desyrel) Take 1 Tablet by mouth at bedtime. 90 Tablet 1 FLUoxetine HCl 40 MG Oral Capsule (PROzac) TAKE 1 CAPSULE BY MOUTH ONCE DAILY 90 Capsule 1 buPROPion HCl ER (XL) 150 MG Oral Tablet Extended Release 24 Hour (Wellbutrin XL) TAKE 1 TABLET BY MOUTH EVERY MORNING 30 Tablet 5 FLUoxetine HCl 20 MG Oral Capsule (PROzac) TAKE 1 CAPSULE BY MOUTH EVERY MORNING 90 Capsule 2 Pantoprazole Sodium 40 MG Oral Tablet Delayed Release (Protonix) TAKE 1 TABLET BY MOUTH EVERY MORNING AND 1 TABLET BEFORE BEDTIME 60 Tablet 5 LORazepam 1 MG Oral Tablet (Ativan) Take 1 tablet by mouth BEFORE BEDTIME if needed for anxiety 30 Tablet 2 traMADol HCl 50 MG Oral Tablet (Ultram) Take 1 Tablet by mouth every 6 hours as needed for Pain, Severe 60 Tablet 0 Clopidogrel Bisulfate 75 MG Oral Tablet (pLAVix) TAKE 1 TABLET BY MOUTH EVERY MORNING 90 Tablet 0 busPIRone HCl 5 MG Oral Tablet (Buspar) Take 1 Tablet by mouth daily at noon. 30 Tablet 5 Acetaminophen ER 650 MG Oral Tablet Extended Release (Acetaminophen 8 Hour) Take 2 Tablets by mouth2 times a day. Boost Oral Liquid One bottle twice daily OLANZapine 2.5 MG Oral Tablet Take 1 Tablet by mouth in the morning. 30 Tablet 5 MoontoastTOUCH ULTRA SYSTEM W/DEVICE KIT Use up to four times a day as directed 1 0 OneTouch UltraSoft Lancets MISC Onetouch Ultrasoft Lancets OneTouch Ultra Blue In Vitro Strip (Glucose Blood) use to TEST UP TO four times a day as directed. E11.9 400 Strip 3 OneTouch Ultra In Vitro Strip (Glucose Blood) Use to test blood sugar up to 4 times daily. Dx E11.9100 Strip 5 No current facility-administered medications for this visit. Review of patient's allergies indicates: Allergen Reactions Latex Rash Powdered latex Tetracycline rash Past Medical History: Diagnosis Date Benign neoplasm of colon 03/14/2009 adenomatous/repeat colonoscopy in 5 yrs Colitis Degeneration of lumbosacral intervertebral disc Lumbar Spine DJD Diabetes mellitus (HCC) Diverticulosis of colon DM type 2, not at goal (HCC) 2008 Dyslipidemia 12/22/2014 Encounter for ophthalmic examination and evaluation 05/07/2009 no diabetic retinopathy, GREG Lantigua MD History of total right hip replacement 02/13/2015 Holger Osman MD at [facility] Migraine with aura Personal history of colonic polyps 03/14/2009 5 mm ceacal adenoma, repeat 5 yers Stroke (HCC) Past Surgical History: Procedure Laterality Date COLONOSCOPY W/ LESION REMOVAL, SNARE 03/14/09 done one 5mm adenoma in cecum, diverticulosis, internal hemorrhoids/adenomatous/, repeat colonoscopy in 5 years COLONOSCOPY W/ SUBMUCOUS INJ COLONOSCOPY, DIAGNOSTIC (RECTUM) 05/08/2014 diverticulosis, repeat 5 yrs/COLONOSCOPY FLEXIBLE PROXIMAL DIAGNOSTIC performed by Biju Cardenas MD at [facility]COPY [facility] COLONOSCOPY, DIAGNOSTIC (RECTUM) 03/20/2020 diverticulosis, repeat 10 yrs / COLONOSCOPY FLEXIBLE PROXIMAL DIAGNOSTIC performed by Biju Cardenas MD at [facility]COPY [facility] COLORECTAL CANCER SCREEN;W/FLE 10/24/2003 diverticulosis EGD, FLEXIBLE, DIAGNOSTIC 09/13/2020 Gastroesophageal flap valve classified hill grade I / biopsies looked good no evidence of infection/ ESOPHAGOGASTRODUODENOSCOPY (EGD), FLEXIBLE, TRANSORAL, DIAGNOSTIC performed by Biju Cardenas MD at ENDOSCOPY [facility] EGD, FLEXIBLE, DIAGNOSTIC N/A 11/28/2021 ESOPHAGOGASTRODUODENOSCOPY (EGD), FLEXIBLE, TRANSORAL, DIAGNOSTIC performed by Juwan Henry MD at [facility] EGD, FLEXIBLE, DIAGNOSTIC 10/15/2023 hiatal hernia/biopsies normal/ESOPHAGOGASTRODUODENOSCOPY (EGD), FLEXIBLE, TRANSORAL, DIAGNOSTIC performed by Nahum Blanco MD at [facility] ENDOVASCULAR REPAIR DEPLOYMENT [id number] ENDOGRAFT N/A 07/20/2017 Repair of abdominal aortic aneurysm with Medtronic Endurant stent graft. Dr. Fair. [facility] [place]. INFORMATION 07/20/2017 Stent graft model #[id number] INFORMATION 07/20/2017 Stent Graft model #[id number] PERCUTANEOUS ACCESS AND CLOSURE OF FEMORAL ARTERY Bilateral 07/20/2017 RECONSTRUCT/REPLACE SHOULDER JOINT Right 11/17/2017 ARTHROPLASTY TOTAL SHOULDER performed by Hong Becerra DO at [facility] REMOVE ELBOW BURSA 1983 left REMOVE LUMBAR SPINE LAMINA, 3+ SEGS 2000, 08/31/2001 HNP Excision [facility] Staley REMOVE LUMBAR SPINE LAMINA, 3+ SEGS 2004, 2006 Roman Ac DO, fusion and screws, redo of 2005 and add REPAIR BICEPS LONG TENDON RUPTURE Right 11/17/2017 TENODESIS LONG TENDON OF BICEPS performed by Hong Becerra DO at OR [facility] TOTAL HIP REPLACEMENT & PROSTHESIS Right 02/13/2015 Heidy Osman MD [facility] TOTAL HIP REPLACEMENT & PROSTHESIS Left 09/2015 Family History Problem Relation Name Age of Onset Other (AAA) Father Cancer Mother Lung age 66 CVA Lung Disorder Father COPD Diabetes Brother No Past Hx Sister No Past Hx Sister Heart Disorder Brother [place] age 52 No Past Hx Son Other (Fibromyalgia) Daughter Social History Socioeconomic History Marital status: Spouse name: Juana Number of children: 2 Years of education: 12 Highest education level: Not on file Occupational History Occupation: retired, disability for back pain, surgery Employer: [employer] Tobacco Use Smoking status: Former Current packs/day: 0.00 Average packs/day: 2.0 packs/day for 40.0 years (80.0 ttl pk-yrs) Types: Cigarettes Start date: 08/30/1961 Quit date: 08/30/2001 Years since quittin.0 Smokeless tobacco: Never Vaping Use Vaping status: Never Used Substance and Sexual Activity Alcohol use: No Alcohol/week: 0.0 standard drinks of alcohol Drug use: Not Currently Types: Marijuana Sexual activity: Yes Partners: Female Other Topics Concern Service Yes Comment: [employer] x 10 years Blood Transfusions No Caffeine Concern No Occupational Exposure No Hobby Hazards No Sleep Concern No Stress Concern No Weight Concern No Special Diet No Back Care Yes Comment: Hx Chronic LBP Exercise No Bike Helmet No Seat Belt Yes Self-Exams No Social History Narrative Born in [place], raised in [place], [place], graduate from [employer], 1970 No other schooling, in 10 years, retired at 1980 A year in [employer], in combat, No alcohol, former smoker, 1.5-2 PPD, stopped 03/11/2005 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 (Adult - for ages 18 years and over): No Does your family have trouble paying for medicine? (Household - for ages 0-17 years): Not on file Food Insecurity: No Food Insecurity (09/05/2024) Food Insecurity Worried About Running Out of Food in the Last Year: Never true Ran Out of Food in the Last Year: Never true Do you need food for this week? (Adult - for ages 18 years and over): No Transportation Needs: No Transportation Needs (09/05/2024) Transportation Needs Do you have trouble getting a ride to medical visits or work? (Adult - for ages 18 years and over):Not on file Does your family have a hard time getting a ride to doctors’ visits? (Household - for ages 0-17 years): Not on file Has lack of transportation kept you from medical appointments, meetings, work, or from getting things needed for daily living? Check all that apply. (Adult - for ages 18 years and over): No Do you (or your family) have trouble finding or paying for a ride (transportation)? (Household - for ages 0-17 years): Not on file Social Connections: Socially Integrated (09/05/2024) Social Connections How often do you feel lonely or isolated from those around you? (Adult - for ages 18 years and over): Rarely Housing Stability: Low Risk (09/05/2024) Housing Stability Do you currently live in a group home or have no steady place to sleep at night? (Adult - for ages 18 years and over): No Do you think you are at risk of becoming homeless? (Adult - for ages 18 years and over): Not on file Does your family worry about paying for your home or becoming homeless? (Household - for ages 0-17 years): Not on file Are you homeless or worried that you might be in the future? (Adult - for ages 18 years and over): No Are you (or your family) homeless or worried that you might be in the future? (Household - for ages0-17 years): Not on file ROS: Review of Systems Constitutional: Negative. HENT: Negative. Eyes: Negative. Respiratory: Negative. Cardiovascular: Negative. Gastrointestinal: Negative. Endocrine: Negative. Genitourinary: Negative. Musculoskeletal: Negative. Allergic/Immunologic: Negative. Neurological: Negative. Hematological: Negative. Psychiatric/Behavioral: Negative. All other systems reviewed and are negative. PHYSICAL EXAMINATION: Vital Signs: BP 132/76 | Pulse 63 | Temp 36.9 °C (98.4 °F) (Tympanic) | Resp 16 | Wt 74.5 kg (164 lb 3.2 oz) |SpO2 95% | BMI 25.96 kg/m² | BSA 1.87 m² EXAM: Constitutional: appearance normally developed, with no deformities Heart sounds are normal Examination of the peripheral vascular system by observation does not reveal varicosity or edema. Palpation reveals normal pulses and temperature Carotid arteries reveal no bruit. NEUROLOGIC EXAMINATION: Appearance: no acute distress Opthalmoscopic: disc flat, normal fundus The patient has intact higher integrative functioning to language and attention to the examiner. Memory is 1/3; fund 2/3; he cannot abstract; crosses midline OK Speech: no dysarthria Cranial Nerves: CN 2 - no visual defect on confrontation. CN 3, 4, 6 - extra-ocular movements intact and no nystagmus; with round pupils appropriately reactive to light and accomodation CN 5 - facial sensation intact CN 7 - no facial asymmetry CN 8 - poor hearing CN 9, 10 - palate symmetric CN 11 - good shoulder shrug CN 12 - tongue midline Gait and station: cane; sits with solar photovoltaic electrician on table Coordination: normal finger to nose testing and rapid alternating movements of the lower extremities. No tremor is seen. Sensory: intact to light touch and pain; proprioception poor Muscle Tone: normal Muscle exam:Nl in all extremities without pronator drift, with APBs, EHLs, DIs 4/5. Reflexes: Hypoactive with downgoing toes IMPRESSION / PLAN: He clearly has cognitive loss. I am proceeding with MRI of the brain EEG and blood studies. I will likely have him on medicine my see him back in 3 months, likely donepezil or the Exelon patch. This patient is continuing to have behavioral difficulties. I find Seroquel the most beneficial hasbeen for this circumstance. This may be require change in the bupropion buspirone fluoxetine and lorazepam. I will discuss this with you at the right time. He also has evidence of a diffuse peripheral neuropathy. This likely is diabetic but I will be ordering blood studies for other underlying medical disorders. The stroke appears stable; I may add asa 81 mg depending on the above data; I I'll report him to the [facility] Mariangel Holm MD documented in this encounter Nursing Notes * Tiffanie Pratt, MED ASSIST - 09/13/2024 11:18 AM EDT Chief Complaint Patient presents with NEW PATIENT Stroke documented in this encounter Plan of Treatment Upcoming Encounters Date Type Department Care Team (Late st Contact Info) Description 09/14/2024 9:00 AM EDT NeuroDiagnostic Study Neurophysiology [facility] [address] [place] [id number] Sp, Neurophys Tech [address] [place] [address] 10/13/2024 9:45 AM EDT Imaging Radiology [facility] [address] [place] [id number] 10/19/2024 9:30 AM EDT Office Visit Orthopaedics [facility] [address] [place] [id number] Kayden Coppola, DO [address] [place] [phone] 01/26/2025 9:20 AM EDT Office Visit Neurology [facility] [place] [address] [place] [address] Mariangel Holm MD [address] [place] [id number] 04/28/2025 4:00 PM EST [facility] [address] [place] [address] Zaid Arnold, DO [address] [place] [address] Pending Results Name Type Priority Associated Diagnoses Date /Time TSH Lab Routine Cerebrovascular accident (CVA), unspecified mechanism (HCC) Memory changes Idiopathic progressive polyneuropathy 09/13/2024 12:07 PM EDT VITAMIN B12 Lab Routine Cerebrovascular accident (CVA), unspecified mechanism (HCC) Memory changes Idiopathic progressive polyneuropathy 09/13/2024 12:07 PM EDT MONOCLONAL GAMMOPATHIES SCREENING PANEL Lab Routine Cerebrovascular accident (CVA), unspecified mechanism (HCC) Memory changes Idiopathic progressive polyneuropathy 09/13/2024 12:07 PM EDT ANTINUCLEAR ANTIBODY (REKHA) EIA SCREEN WITH REFLEX AB QUANT Lab Routine Cerebrovascular accident (CVA), unspecified mechanism (HCC) Memory changes Idiopathic progressive polyneuropathy 09/13/2024 12:07 PM EDT ERYTHROCYTE SEDIMENTATION RATE (ESR) Lab Routine Cerebrovascular accident (CVA), unspecified mechanism (HCC) Memory changes Idiopathic progressive polyneuropathy 09/13/2024 12:07 PM EDT LYME DISEASE ANTIBODY SCREEN WITH REFLEX TO CONFIRMATION Lab Routine Cerebrovascular accident (CVA), unspecified mechanism (HCC) Memory changes Idiopathic progressive polyneuropathy 09/13/2024 12:07 PM EDT ANTINUCLEAR ANTIBODY (REKHA) SCREEN, EMILE Lab Routine Cerebrovascular accident (CVA), unspecified mechanism (HCC) Memory changes Idiopathic progressive polyneuropathy 09/13/2024 12:07 PM EDT LYME DISEASE ANTIBODY SCREEN Lab Routine Cerebrovascular accident (CVA), unspecified mechanism (HCC) Memory changes Idiopathic progressive polyneuropathy 09/13/2024 12:07 PM EDT Scheduled Orders Name Type Priority Associated Diagnoses Orde r Schedule MRI BRAIN W WO CONTRAST Medical Imaging Routine Cerebrovascular accident (CVA), unspecified mechanism (HCC) Memory changes Expected: 09/13/2024, Expires: 10/13/2025 EEG ROUTINE Procedures Routine Cerebrovascular accident (CVA), unspecified mechanism (HCC) Memory changes Idiopathic progressive polyneuropathy Ordered: 09/13/2024 MONOCLONAL GAMMOPATHIES SCREENING PANEL Lab Routine Cerebrovascular accident (CVA), unspecified mechanism (HCC) Memory changes Idiopathic progressive polyneuropathy Expected: 09/13/2024, Expires: 09/13/2025 Scheduled Procedures Name Priority Associated Diagnoses Date/Ti [...] this encounter Medical Devices Implanted Type Area It Security Consulting Director Device Identifier Shelf Expiration Date Model / Serial / Lot Graft Bifur [id number] - [id number] - [id number] Implanted:Qty: 1 on 07/20/2017 by Holger Fair MD at [place] [facility] N/A: Aorta [employer] : VASCULAR 03/31/2019 [id number] / [id number] / Limb Contralat [id number] - [id number] - [id number] Implanted:Qty: 1 on 07/20/2017 by Holger Fair MD at [facility] Left: Aorta [employer] : VASCULAR 04/27/2019 [id number] / [id number] / Aequalis Perform Cortiloc Pegged Glenoid Implanted:Qty: 1 on 11/17/2017 by Hong Becerra DO at OR [facility] Right: Shoulder [employer] 08/09/2020 [id number] / [id number] / Cement Bone Simplex Hv & G - [id number] Implanted:Qty: 1 on 11/17/2017 by Hong Becerra DO at OR [facility] Right: Shoulder JARED : ORTHOPAEDICS 12/29/2018 [id number] / / [id number] Y Flex Shoulder System Aequalis Humeral Head 52mm 19mm Implanted:Qty: 1 on 11/17/2017 by Hong Becerra DO at OR [facility] Right: Shoulder [employer] 06/10/2022 [id number] / [id number] / Standard Ptc Humeral Stem Implanted:Qty: 1 on 11/17/2017 by Hong Becerra DO at OR [facility] Right: Shoulder [employer] 04/10/2021 [id number] / [id number] / [place] Suture Biocomposite - [id number] Implanted:Qty: 2 on 11/17/2017 by Hong Becerra DO at OR [facility] Right: Shoulder [employer] 10/29/2018 [id number] / / [id number] Sut [place] Biocomp 4.75mm Min5 - [id number] Implanted:Qty: 1 on 11/17/2017 by Hong Becerra DO at OR [facility] Right: Shoulder [employer] 05/31/[id number] / / [id number] documented as of this encounter Procedures Procedure Name Priority Date/Time Associated Diagnosis Comments DIFFERENTIAL, AUTOMATED Routine 09/13/2024 12:07 PM EDT Cerebrovascular accident (CVA), unspecified mechanism (HCC) Memory changes Idiopathic progressive polyneuropathy CBC Routine 09/13/2024 12:07 PM EDT Cerebrovascular accident (CVA), unspecified mechanism (HCC) Memory changes Idiopathic progressive polyneuropathy CBC Routine 09/13/2024 12:07 PM EDT Cerebrovascular accident (CVA), unspecified mechanism (HCC) Memory changes Idiopathic progressive polyneuropathy documented in this encounter Results * (ABNORMAL) DIFFERENTIAL, AUTOMATED (09/13/2024 12:07 PM EDT) WBC 9.81 4.00 - 10.80 K/uL 09/13/2024 12:17 PM EDT [facility] [place] 56-02 Neutrophils % 75.0 40.0 - 75.0 % 09/13/2024 12:17 PM EDT [facility] 56-02 Lymphocytes % 10.8(L) 18.0 - 42.0 % 09/13/2024 12:17 PM EDT LAB[facility]ATORY [facility] 56-02 Monocytes % 12.4(H) 1.0 - 11.0 % 09/13/2024 12:17 PM EDT LABORATORY [facility] 56-02 Eosinophils % 1.7 0.0 - 6.0 % 09/13/2024 12:17 PM EDT LABORATORY [facility] 56-02 Basophils % 0.1 0.0 - 2.0 % 09/13/2024 12:17 PM EDT LABORATORY [facility] 56-02 Absolute Neutrophils 7.35 1.80 - 7.70 K/uL 09/13/2024 12:17 PM EDT [facility] 56- Absolute Lymphocytes 1.06 1.00 - 4.80 K/ul 09/13/2024 12:17 PM EDT [facility] 56- Absolute Monocytes 1.22(H) 0.00 - 1.10 K/uL 09/13/2024 12:17 PM EDT [facility] 56- Absolute Eosinophils 0.17 0.00 - 0.70 K/uL 09/13/2024 12:17 PM EDT [facility] 56- Absolute Basophils 0.01 0.00 - 0.20 K/uL 09/13/2024 12:17 PM EDT [facility] 56- Blood Venous blood specimen / Unknown Venipuncture / Unknown 09/13/2024 12:07 PM EDT 09/13/2024 12:07 PM EDT us Mariangel Holm MD LAB BLOOD ORDERABLES Fi nal Result [facility] [address] [place] [address] * CBC (09/13/2024 12:07 PM EDT) WBC 9.81 4.00 - 10.80 K/uL 09/13/2024 12:17 PM EDT [facility] 56- RBC 5.13 4.50 - 5.25 M/uL 09/13/2024 12:17 PM EDT [facility] 56 HGB 15.7 14.0 - 16.8 g/dL 09/13/2024 12:17 PM EDT [facility] 56- HCT 47.8 40.0 - 48.4 % 09/13/2024 12:17 PM EDT [facility] 56- MCV 93.2 82.0 - 99.5 fL 09/13/2024 12:17 PM EDT [facility] 56- MCH 30.6 27.0 - 34.0 pg 09/13/2024 12:17 PM EDT [facility] 56- MCHC 32.8 32.0 - 36.0 g/dL 09/13/2024 12:17 PM EDT [facility] 56- RDW 13.8 11.5 - 15.5 % 09/13/2024 12:17 PM EDT [facility] 56- PLT 209 140 - 400 K/uL 09/13/2024 12:17 PM EDT [facility] 56- MPV 10.1 6.6 - 11.1 fL 09/13/2024 12:17 PM EDT [facility] 56- Blood Venous blood specimen / Unknown Venipuncture / Unknown 09/13/2024 12:07 PM EDT 09/13/2024 12:07 PM EDT us Mariangel Holm MD LAB BLOOD ORDERABLES Fi nal Result [facility] 56- [address] [place] [address] documented in this encounter Visit Diagnoses Diagnosis Cerebrovascular accident (CVA), unspecified mechanism (HCC)- Primary Memory changes Memory loss Idiopathic progressive polyneuropathy documented in this encounter Advance Directives Documents on File Type Date Recorded Patient Pitting Machine Operator Expl anation Advance Directives and Living Will 04/07/2005 Power of Mechanical Manufacturing Engineer 04/07/2005 * Full Code (Latest Code Status [...] 7:34 AM 04/07/2005 8:34 AM Care Teams Kicking Machine Operator Relationship Specialty Start Date End Date Zaid Arnold DO [address] [facility] [place] [facility] [address] PCP - General Family Medicine 11/14/16 documented as of this encounter"
--- OUTSIDE RECORDS SUMMARY | 2024-09-30 16:25 | External Medical Summary ---
Author Name Unknown Address Unknown Organization K01:LABORATORY [facility] [place] - [address] [facility] [address] Laboratory Report Ordering Provider Test Date Status TIERA,HONORIO 09/13/2024 12:07:45 Final Observation Date Value Abnormality Reference (Units ) Status TSH 09/13/2024 12:07:45 1.59 0.27-4.20 (uIU/mL) Final Performing Location LABORATORY [facility] - [address] [facility] [address]
--- OUTSIDE RECORDS SUMMARY | 2024-09-30 16:25 | External Medical Summary ---
Author Name Unknown Address Unknown Organization K01:LABORATORY [address] [address] Laboratory Report Ordering Provider Test Date Status HONORIO MOTT 09/13/2024 12:07:45 Final Observation Date Value Abnormality Reference (Units ) Status Nuclear IgG Ab [Ratio] in Serum by Immunoassay 09/13/2024 12:07:45 Negative Negative Final DNA double strand Ab [Presence] in Serum 09/13/2024 12:07:45 Negative Negative Final DOUBLE STRANDED DNA VALUE - [facility] 09/13/2024 12:07:45 2.2 <20 (IU/mL) Final Extractable nuclear Ab [Presence] in Serum 09/13/2024 12:07:45 Negative Negative Final Nuclear IgG Ab [Ratio] in Serum by Immunoassay 09/13/2024 12:07:45 0.3 <0.7 (Ratio) Final Screening is based on detect ion of the following antibodies: dsDNA, U1-EDUCATIONAL PROGRAM DIRECTOR (RNP70, A, C), SS-A/Ro, SS-B / La, Carina-1, Scl-70, Centromere B proteins and Sm proteins. In conjunction with clinical findings, this can aid in the diagnosis of systemic lupus erythematosous (SLE), mixed connective tissue disease (MCTD), Sjogren's syndrome, scleroderma and polymyositis/dermatomyositis.
However, a negative result does not rule out systemic rheumatic or other autoimmune disease. If clinically suspected, further evaluation and testing may be necessary. Please consult with Rheumatology Department.
Methodology: Fluorescent Enzyme Immunoassay. Performing Location LABORATORY [address] [facility] [address]
--- OUTSIDE RECORDS SUMMARY | 2024-09-30 16:25 | External Medical Summary ---
Author Name Unknown Address Unknown Organization K01:LABORATORY [place] [address] [address] [facility] [address] Laboratory Report Ordering Provider Test Date Status HONORIO MOTT 09/13/2024 12:07:45 Final Observation Date Value Abnormality Reference (Units ) Status [place] light chains, Free, Serum 09/13/2024 12:07:45 23.13 Above high normal 3.30-19.40 (mg/L) Final L[place] light chains, free, Serum 09/13/2024 12:07:45 34.57 Above high normal 5.71-26.30 (mg/L) Final KAPPA LAMBDA [facility] RATIO 09/13/2024 12:07:45 0.67 0.26-1.65 Final Performing Location LAB[facility]ATORY [facility] [place] [facility] [place] [address]
--- OUTSIDE RECORDS SUMMARY | 2024-09-30 16:25 | External Medical Summary | Summary of Care ---
Author Name Unknown Organization [facility] Address [address] [place] [address] Phone [phone] Care Team Providers Care Loader Magazine Grinder Name Role Phone Fercho Casper DO Primary Care Provider [phone] Reason for Visit * Reason Comments eRx-Medication Refill Encounter Details Date Type Department Care Team (Late st Contact Info) Description 09/19/2024 Refill Family Practice [facility] [address] [facility] [place] [address] Fercho Casper DO [address] [place] [address] Bilateral hip pain; SPINAL STENOSIS-LUMBAR Allergies Active Allergy Reactions Criticality Noted Date Comments Latex Rash 11/17/2017 Powdered latex Tetracycline 12/31/1999 rash documented as of this encounter (statuses as of 09/21/2024) Medications CENTRUM SILVER PO TABS Take by mouth . 0 08/25/19 09 Active TUMS 500 MG PO CHEW Take by mouth . 1 bottle 11 08/25/19 09 Active ONETOUCH ULTRA SYSTEM W/DEVICE KITIndications:DM type 2, not at goal (HCC) Use up to four times a day as directed 1 0 03/26/20 09 Active OneTouch UltraSoft Lancets MISC Onetouch Ultrasoft Lancets Active OneTouch Ultra Blue In Vitro Strip (Glucose Blood) use to TEST UP TO four times a day as directed. E11.9 400 Strip 3 07/13/19 21 Active Rizatriptan Benzoate 10 MG Oral Tablet Take 1 Tablet by mouth as needed for Migraine. Active Diclofenac Sodium 1 % External Gel (Voltaren)Indicati ons:Chronic pain of right knee Apply topically to affected area 2 times a day. Apply to right knee 100 g 5 03/23/20 23 Active OneTouch Ultra In Vitro Strip (Glucose Blood) Use to test blood sugar up to 4 times daily. Dx E11.9 100 Strip 5 09/08/19 24 Active Albuterol Sulfate HFA 108 (90 Base) MCG/ACT Inhalation Aerosol SolutionIndication s:Wheezing inhale 2 puffs by mouth every 4 hours if needed for wheezing 18 g 5 09/23/19 24 Active Atorvastatin Calcium 40 MG Oral Tablet (Lipitor)Indicatio ns:Type 2 diabetes mellitus with hemoglobin A1c goal of less than 7.0% (HCC),Left pontine cerebrovascular accident (HCC) Take 1 Tablet by mouth in the morning. 90 Tablet 1 11/05/19 24 Active Propranolol HCl ER 80 MG Oral Capsule Extended Release 24 Hour (Inderal LA) Take 1 Capsule by mouth in the morning. 90 Capsule 3 11/23/19 24 Active Losartan Potassium 25 MG Oral Tablet (Cozaar)Indication s:HTN, goal below 140/90 Take 1 Tablet by mouth in the morning. In the morning.. 90 Tablet 2 01/08/20 24 Active traZODone HCl 50 MG Oral Tablet (Desyrel) Take 1 Tablet by mouth at bedtime. 90 Tablet 1 04/27/20 24 Active FLUoxetine HCl 40 MG Oral Capsule (PROzac)Indication s:Depression, unspecified depression type TAKE 1 CAPSULE BY MOUTH ONCE DAILY 90 Capsule 1 04/27/20 24 Active buPROPion HCl ER (XL) 150 MG Oral Tablet Extended Release 24 Hour (Wellbutrin XL) TAKE 1 TABLET BY MOUTH EVERY MORNING 30 Tablet 5 05/10/20 24 Active FLUoxetine HCl 20 MG Oral Capsule (PROzac)Indication s:Dysthymia TAKE 1 CAPSULE BY MOUTH EVERY MORNING 90 Capsule 2 05/26/20 24 Active Pantoprazole Sodium 40 MG Oral Tablet Delayed Release (Protonix) TAKE 1 TABLET BY MOUTH EVERY MORNING AND 1 TABLET BEFORE BEDTIME 60 Tablet 5 07/15/19 25 Active LORazepam 1 MG Oral Tablet (Ativan) Take 1 tablet by mouth BEFORE BEDTIME if needed for anxiety 30 Tablet 2 08/03/19 25 Active Clopidogrel Bisulfate 75 MG Oral Tablet (pLAVix)Indication s:Left pontine cerebrovascular accident (HCC) TAKE 1 TABLET BY MOUTH EVERY MORNING 90 Tablet 08/27/19 25 Active busPIRone HCl 5 MG Oral Tablet (Buspar) Take 1 Tablet by mouth daily at noon. 30 Tablet 5 09/07/19 25 Active Acetaminophen ER 650 MG Oral Tablet Extended Release (Acetaminophen 8 Hour) Take 2 Tablets by mouth 2 times a day. Active Boost Oral Liquid One bottle twice daily Active OLANZapine 2.5 MG Oral TabletIndications: Excoriation (skin-picking) disorder Take 1 Tablet by mouth in the morning. 30 Tablet 5 09/07/19 25 Active traMADol HCl 50 MG Oral Tablet (Ultram)Indication s:Bilateral hip pain,Spinal stenosis of lumbar region without neurogenic claudication Take 1 Tablet by mouth every 6 hours as needed for Pain, Severe. 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 5 Overview (02/21/2015): Holger Osman MD at [facility] Dyslipidemia 12/22/2014 Angioma 07/27/2013 Type 2 diabetes mellitus wit h hemoglobin A1c goal of less than 7.0% 03/27/2011 Overview (09/25/2015): ICD-10 update of inactive term History of Clostridium difficile infection 11/29 Overview (03/31/2012): Hospitalized at [facility] History of colonic polyps 03/14/2009 Overview (03/18/2009): 5 mm ceacal adenoma, repeat 3-5 yers SPINAL STENOSIS-LUMBAR 01/25/2001 CLASSICAL MIGRAINE WITHOU MENTION OF INTRACTABLE MIGRAINE Diverticulosis of colon documented as of this encounter (statuses as of 09/21/2024) Resolved Problems Problem Noted Date Diagnosed Date [...] as of this encounter (statuses as of 09/21/2024) Immunizations Name Administration Dates Next Due COVID-19 [...] 09/05/2024 Does the household have a re lar source of income? (Household - for ages [...] on file documented as of this encounter Functional Status * Are you [...] Heidy Melgar RN documented in this encounter Miscellaneous Notes * Telephone Encounter - Fercho Casper DO - 09/21/2024 12:40 PM EDTSigned Prescriptions: Disp Refills traMADol HCl 50 MG Oral Tablet (Ultram) 60 Tab*0 Sig: Take 1 Tablet by mouth every 6 hours as needed for Pain, Severe. Authorizing Provider: FERCHO CASPER * Telephone Encounter - Edi Roth [facility] - 09/21/2024 10:39 AM EDTPending Prescriptions: Disp Refills traMADol HCl 50 MG Oral Tablet (Ultram) 60 Tab*0 Sig: Take 1 Tablet by mouth every 6 hours as needed for Pain, Severe. * Telephone Encounter - Edi Roth [facility] - 09/21/2024 10:38 AM EDT I have reviewed the patient’s controlled substance dispensing history in the Prescription Drug Monitoring Program in compliance with the [facility] regulations before prescribing a controlled substance. PDMP checked on 09/21/2024. Pending Prescriptions: Disp Refills traMADol HCl 50 MG Oral Tablet (Ultram) [*60 Tab*0 Sig: TAKE 1 TABLET BY MOUTH EVERY 6 HOURS NEEDED FOR severe PAIN Last Visit: 09/06/2024 (in office), 08/15/2020 (telemedicine) Next Visit: 04/28/2025 Date medication was last filled: 08/26/24 Date medication is due for refill: 09/09/24 Pharmacy: [id number] Is this request for a controlled substance? Yes and Urine Drug Screen Not completed Toxicology results: Results for orders placed or performed in visit on 10/07/19 OPIOIDS/BENZO COMPLIANCE MONITORING W/INTERP Result Value Pain Management Interpretation (NOTE) URINE DRUG SCREEN RESULT Amphetamine Screen, U NEGATIVE Benzodiazepines Screen, U REFER TO CONFIRMATION RESULT (A) Cannabinoids Screen, U NEGATIVE Cocaine Metabolite Screen, U NEGATIVE HYDROCODONE NEGATIVE Methadone Metabolite Screen, U NEGATIVE Morphine/Codeine Screen, U NEGATIVE Oxycodone Screen, U NEGATIVE COMMENT THE ABOVE SCREENING RESULTS ARE PRESUMPTIVE AND CAN ONLY BE USED FOR MEDICAL PURPOSES. CONFIRMATORY TESTING IS AVAILABLE UPON REQUEST. Cutoff Concentration URINE VALID INTERP NORMAL CREATININE SILVA 263 *Note: Due to a large number of results and/or encounters for the requested time period, some results have not been displayed. A complete set of results can be found in Results Review. Please approve if appropriate. Thank You, Edi Carroll [facility] Clinical Pharmacist [facility] ([facility]) 09/21/2024, 10:38 AM documented in this encounter Plan of Treatment Upcoming Encounters Date Type Department Care Team (Late st Contact Info) Description 10/13/2024 9:45 AM EDT [facility] [address] [place] [phone] 10/19/2024 9:30 AM EDT Office Visit Orthopaedics [facility] [address] [place] [phone] Kayden Coppola, DO [address] [place] [phone] 01/26/2025 9:20 AM EDT Office Visit Neurology [facility] [address] [place] [address] Mariangel Holm MD [address] [place] [address] 04/28/2025 4:00 PM EST Office Visit Family Practice [facility] [address] [place] [address] Fercho Casper, DO [address] [facility] [place] [address] Scheduled Procedures Name Priority Associated Diagnoses Date/Ti [...] this encounter Medical Devices Implanted Type Area Dough Catcher Device Identifier Shelf Expiration Date Model / Serial / Lot Graft Bifur [id number] - [id number] - [id number] Implanted:Qty: 1 on 07/20/2017 by [place] [facility] [place]A: Aorta [employer] : VASCULAR 03/31/2019 [id number] / [id number] / Limb Contralat [id number] - [id number] - [id number] Implanted:Qty: 1 on 07/20/2017 by Holger Fair MD [place] [facility] Left: Aorta [employer] : VASCULAR 04/27/2019 [id number] 124E / [id number] / Aequalis Perform Cortiloc Pegged Glenoid Implanted:Qty: 1 on 11/17/2017 by Hong Becerra DO at OR [facility] Right: Shoulder [employer] 08/09/2020 [id number] / [id number] / Cement Bone Simplex Hv & G - [id number] Implanted:Qty: 1 on 11/17/2017 by Hong Becerra DO at OR [facility] Right: Shoulder JARED : ORTHOPAEDICS 12/29/2018 6195-1-01 0 / / [id number] Y Flex Shoulder System Aequalis Humeral Head 52mm 19mm Implanted:Qty: 1 on 11/17/2017 by Hong Becerra DO at OR [facility] Right: Shoulder [employer] 06/10/2022 [id number] / [id number] / Standard Ptc Humeral Stem Implanted:Qty: 1 on 11/17/2017 by Hong Becerra DO at OR [facility] Right: Shoulder [employer] 04/10/2021 [id number] / [id number] / [place] Suture Biocomposite - [id number] Implanted:Qty: 2 on 11/17/2017 by Hong Becerra DO at OR [facility] Right: Shoulder [employer] 10/29/2018 AR-2324BC C / / [id number] Sut [place] Biocomp 4.75mm Min5 - [id number] Implanted:Qty: 1 on 11/17/2017 by Hong Becerra DO at OR [facility] Right: Shoulder [employer] 05/31/[address] / / [id number] documented as of this encounter Visit Diagnoses Diagnosis Bilateral hip pain Pain in joint, pelvic region and thigh SPINAL STENOSIS-LUMBAR Spinal stenosis, lumbar region, without neurogenic claudication documented in this encounter Advance Directives Documents on File Type Date Recorded Patient Knife Operator Expl anation Advance Directives and Living Will 04/07/2005 Power of Toll Relief Operator 04/07/2005 * Full Code (Latest Code Status [...] 7:34 AM 04/07/2005 8:34 AM Care Teams Loader Magazine Grinder Relationship Specialty Start Date End Date Fercho Casper DO [address] [facility] [place] [address] PCP - General Family Medicine 11/14/16 documented as of this encounter
--- OUTSIDE RECORDS SUMMARY | 2024-09-30 16:25 | External Medical Summary | Summary of Care ---
Author Name Unknown Organization [facility] Address [address] [place] [address] Phone [phone] Care Team Providers Care Auto Mechanic Apprentice Name Role Phone Clayton Zaid Julian SNOW Primary Care Provider [phone] Reason for Visit * Reason Comments Weakness, Generalized Encounter Details Date Type Department Care Team (Late st Contact Info) Description 09/29/2024 1:40 PM EDT Office Visit Family Practice [facility] [address] [place] [address] Ana Paula Julian PA-C [address] [place] [address] Accidental fall, initial encounter*; Right sided weakness; [...] 5 Overview (02/21/2015): Holger Osman MD at [facility] Dyslipidemia 12/22/2014 Angioma 07/27/2013 Type 2 diabetes mellitus wit h hemoglobin A1c goal of less than 7.0% 03/27/2011 Overview (09/25/2015): ICD-10 update of inactive term History of Clostridium difficile infection 11/29 Overview (03/31/2012): Hospitalized at [facility] History of colonic polyps 03/14/2009 Overview (03/18/2009): [...] now worsened. 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 Recent symptoms suggest [...] his expressed understanding. is driving patient to [facility] ER now. Wrap-Up Follow-up: Return if symptoms [...] Paula Julian PA-C [facility] 200 [facility] [address] documented in this encounter Nursing Notes * [...] Description 10/13/2024 9:45 AM EDT Imaging Radiology [facility] 1st [facility] [address] [place] [phone] 10/19/2024 9:30 AM EDT Office Visit Orthopaedics [facility] [address] [place] [phone] Kayden Coppola, [address] [place] [phone] 01/26/2025 9:20 AM EDT Office Visit Neurology [facility] [address] [facility] [place] [address] Mariangel Holm MD [address] [facility] [place] [address] 04/28/2025 4:00 PM EST Office Visit Family Practice [facility] [address] [facility] [place] [address] Zaid Arnold DO [address] [facility] [place] [address] Scheduled Procedures Name Priority Associated Diagnoses Date/Ti [...] this encounter Medical Devices Implanted Type Area Collating Machine Operator Device Identifier Shelf Expiration Date Model / Serial / Lot Graft Bifur [id number] - [id number] - [id number] Implanted:Qty: 1 on 07/20/2017 by Holger Fair MD at [place] [facility] N/A: Aorta [employer] : VASCULAR 03/31/2019 [id number] 166E / [id number] / Limb Contralat [id number] - [id number] - [id number] Implanted:Qty: 1 on 07/20/2017 by Holger Fair MD at [place] [facility] Left: Aorta [employer] : VASCULAR 04/27/2019 [id number] 124E / [id number] / Aequalis Perform Cortiloc Pegged Glenoid Implanted:Qty: 1 on 11/17/2017 by Hnog Becerra DO at OR [facility] Right: Shoulder [employer] 08/09/2020 [id number] / [id number] / Cement Bone Simplex Hv & G - [id number] Implanted:Qty: 1 on 11/17/2017 by Hong Becerra DO at OR [facility] Right: Shoulder JARED : ORTHOPAEDICS 12/29/2018 6195-06-01 0 / / [id number] Y Flex Shoulder System Aequalis Humeral Head 52mm 19mm Implanted:Qty: 1 on 11/17/2017 by Hong Becerra DO at OR [facility] Right: Shoulder [employer] 06/10/2022 [id number] / [id number] / Standard Ptc Humeral Stem Implanted:Qty: 1 on 11/17/2017 by Hong Becerra DO at OR [facility] Right: Shoulder [employer] 04/10/2021 [id number] / [id number] / [place] Suture Biocomposite - [id number] Implanted:Qty: 2 on 11/17/2017 by Hong Becerra DO at OR [facility] Right: Shoulder [employer] 10/29/2018 AR-2324BC C / / [id number] Sut [place] [employer] Biocomp 4.75mm Min5 - [id number] Implanted:Qty: 1 on 11/17/2017 by Hong Becerra DO at OR [facility] Right: Shoulder [employer] 05/31/[address] / / [id number] documented as of this encounter Visit Diagnoses Diagnosis Accidental fall, initial encounter- Primary Right sided weakness Muscle weakness (generalized) Dizziness Dizziness and giddiness History of CVA (cerebrovascular accident) Transient ischemic attack (TIA), and cerebral infarction without residual deficits HTN, goal below 140/90 Unspecified essential hypertension documented in this encounter Advance Directives Documents on File Type Date Recorded Patient Power Line Lineman Expl anation Advance Directives and Living Will 04/07/2005 Power of Foreign Clerk 04/07/2005 * Full Code (Latest Code Status [...] 7:34 AM 04/07/2005 8:34 AM Care Teams Auto Mechanic Apprentice Relationship Specialty Start Date End Date Zaid Arnold DO [address] [place] [address] [place], [place] [address] PCP - General Family Medicine 11/14/16 documented as of this encounter"
--- OUTSIDE RECORDS SUMMARY | 2024-09-30 16:25 | External Medical Summary ---
Author Name Unknown Address Unknown Organization K09:LABORATORY [facility] [address] [place] [address] Laboratory Report Ordering Provider Test Date Status HONORIO MOTT 09/13/2024 12:07:45 Final Observation Date Value Abnormality Reference (Units ) Status SYNC LEUKOCYTES IN BLOOD BY AUTOMATED COUNT 09/13/2024 12:07:45 9.81 4.00-10.80 (K/uL) Final Segs 09/13/2024 12:07:45 75.0 40.0-75.0 (%) Final Lymphs % 09/13/2024 12:07:45 10.8 Below low normal 18.0-42.0 (%) Final Monos 09/13/2024 12:07:45 12.4 Above high normal 1.0-11.0 (%) Final Eosinophils 09/13/2024 12:07:45 1.7 0.0-6.0 (%) Final Basos 09/13/2024 12:07:45 0.1 0.0-2.0 (%) Final Absolute Segs 09/13/2024 12:07:45 7.35 1.80-7.70 (K/uL) Final Lymphs, absolute 09/13/2024 12:07:45 1.06 1.00-4.80 (K/ul) Final Monos, Abs 09/13/2024 12:07:45 1.22 Above high normal 0.00-1.10 (K/uL) Final Eos, Abs 09/13/2024 12:07:45 0.17 0.00-0.70 (K/uL) Final Basos, Abs 09/13/2024 12:07:45 0.01 0.00-0.20 (K/uL) Final Performing Location LABORATORY [facility] [address] [place] [address]
--- OUTSIDE RECORDS SUMMARY | 2024-09-30 16:25 | External Medical Summary ---
Author Name Unknown Address Unknown Organization K01:[facility]ORY [facility] [place] [address] [place] [address] Laboratory Report Ordering Provider Test Date Status HONORIO MOTT 09/13/2024 12:07:45 Final Observation Date Value Abnormality Reference (Units ) Status Erythrocyte sedimentation rate by Photometric method 09/13/2024 12:07:45 11 <20 (mm/hour) Final Performing Location LAB[facility] [place] [address] [place] [address]
--- OUTSIDE RECORDS SUMMARY | 2024-09-30 16:25 | External Medical Summary | Summary of Care ---
Author Name Unknown Organization [facility] Address [address] [place] [address] Phone [phone] Care Team Providers Care Music Critic Name Role Phone Clayton Zaid Julian SNOW Primary Care Provider [phone] Reason for Visit * Reason Comments EEG Encounter Details Date Type Department Care Team (Late st Contact Info) Description 09/14/2024 9:00 AM EDT NeuroDiagnostic Study Neurophysiology [facility] [address] [place] [address] Sp, Neurophys Tech [address] [facility] [place] [address] Allergies Active Allergy Reactions Criticality Noted Date [...] 5 Overview (02/21/2015): Holger Osman MD at [facility] Dyslipidemia 12/22/2014 Angioma 07/27/2013 Type 2 diabetes mellitus wit h hemoglobin A1c goal of less than 7.0% 03/27/2011 Overview (09/25/2015): ICD-10 update of inactive term History of Clostridium difficile infection 11/29 Overview (03/31/2012): Hospitalized at [facility] History of colonic polyps [...] No 09/05/2024 Does the household have a [facility] psychiatric [facility] source of income? (Household - for ages [...] No 11/17/2017 6:28 PM Heidy June RN * Are you blind or do you have serious difficulty seeing, even when wearing glasses? Answer Date of Assessment Author No 11/17/2017 6:28 PM Heidy June RN * Do you have serious difficulty walking or climbing stairs? (5 years old or older) Answer Date of Assessment Author No 11/17/2017 6:28 PM Heidy June RN * Do you have difficulty dressing or bathing? (5 years old or older) Answer Date of Assessment Author No 11/17/2017 6:28 PM Heidy June RN * Because of a physical, mental, [...] Entry Date Author No 11/17/2017 6:28 PM Heidy June RN documented in this encounter Progress Notes * Nikunj Thomas, DO - 09/20/2024 6:24 AM EDT ROUTINE EEG REPORT Name: Edi Zaldivar . Date of study: 09/14/24, Age: [age] year old Outpatient Referring Physician: Mariangel Holm MD TECHNICAL REMARKS: This is a technically satisfactory eighteen channel record employing 21 disc electrodes applied according to a measured international 10-20 electrode placement system. There were no significant technical difficulties. CLINICAL INFORMATION: A 74 yo M w CVA and memory changes. EEG performed for evaluation of epileptiform activity. MEDICATIONS: Current Outpatient Medications Medication Sig Dispense Refill CENTRUM SILVER PO TABS Take by mouth . 0 TUMS 500 MG PO CHEW Take by mouth . 1 bottle 11 ONETOUCH ULTRA SYSTEM W/DEVICE KIT Use up to four times a day as directed 1 0 OneTouch UltraSoft Lancets MISC Onetouch Ultrasoft Lancets OneTouch Ultra Blue In Vitro Strip (Glucose Blood) use to TEST UP TO four times a day as directed. E11.9 400 Strip 3 Rizatriptan Benzoate 10 MG Oral Tablet Take 1 Tablet by mouth as needed for Migraine. Diclofenac Sodium 1 % External Gel (Voltaren) Apply topically to affected area 2 times a day. Applyto right knee 100 g 5 OneTouch Ultra In Vitro Strip (Glucose Blood) Use to test blood sugar up to 4 times daily. Dx E11.9100 Strip 5 Albuterol Sulfate HFA 108 (90 Base) [...] mouth in the morning. 30 Tablet 5 No current facility-administered medications for this visit. REPORT: At the onset of the EEG, the patient is awake. The background activity consist of 9 Hz, persistent, posteriorly dominant, moderate amplitude, symmetric and rhythmic activity that is reactive to eye opening. Anteriorly, it consist of a mixture of low voltage indeterminate activity and 15-25 Hz, persistent, low amplitude, symmetric and rhythmic activity. Stepwise intermittent photic stimulation (1-21 Hz) does not induce any abnormalities. Drowsiness is characterized by low amplitude mixedfrequency activity, roving eye movements, and decreased eye blinking and muscle artifact. IMPRESSION: This is a normal awake and drowsy EEG. There is no evidence of focal slowing or epileptiform activity. Nikunj Thomas DO documented in this encounter Plan of Treatment Upcoming Encounters Date Type Department Care Team (Late st Contact Info) Description 10/13/2024 9:45 AM EDT Imaging Radiology [facility] [address] [place] [phone] 10/19/2024 9:30 AM EDT Office Visit Orthopaedics [facility] [address] [place] [phone] Kayden Coppola DO [address] [place] [address] 01/26/2025 9:20 AM EDT Office Visit Neurology [facility] [address] [facility] [place] [address] Mariangel Holm MD [address] [facility] [place] [address] 04/28/2025 4:00 PM EST Office Visit Family Practice [facility] [address] [place] [address] Zaid Arnold DO [address] [facility] [place] [address] Scheduled Orders Name Type Priority Associated Diagnoses Orde r Schedule EEG ROUTINE Procedures Routine Cerebrovascular accident (CVA), unspecified mechanism (HCC) Memory changes Idiopathic progressive polyneuropathy Ordered: 09/13/2024 Scheduled Procedures Name Priority Associated Diagnoses Date/Ti [...] this encounter Medical Devices Implanted Type Area Bottle Capping Machine Operator Device Identifier Shelf Expiration Date Model / Serial / Lot Graft Bifur [id number] - [id number] - [id number] Implanted:Qty: 1 on 07/20/2017 by Holger Fair MD [place] [facility]A: Aorta [employer] : VASCULAR 03/31/2019 [id number] / [id number] / Limb Contralat [id number] - [id number] - [id number] Implanted:Qty: 1 on 07/20/2017 by Holger Fair MD [place] [facility] [place] Left: Aorta [employer] : VASCULAR 04/27/2019 [id number] / [id number] / Aequalis Perform Cortiloc Pegged Glenoid Implanted:Qty: 1 on 11/17/2017 by Hong Becerra DO at OR [facility] Right: Shoulder [employer] 08/09/2020 [id number] / [id number] / Cement Bone Simplex Hv & G - [id number] Implanted:Qty: 1 on 11/17/2017 by Hong Becerra DO at OR [facility] Right: Shoulder JARED : ORTHOPAEDICS 12/29/2018 6195-1-01 0 / / [id number] Y Flex Shoulder System Aequalis Humeral Head 52mm 19mm Implanted:Qty: 1 on 11/17/2017 by Hong Becerra DO at OR [facility] Right: Shoulder [employer] 06/10/2022 [id number] / [id number] / Standard Ptc Humeral Stem Implanted:Qty: 1 on 11/17/2017 by Hong Becerra DO at OR [facility] Right: Shoulder [employer] 04/10/2021 [id number] / [id number] / Maplewood Suture Biocomposite - [id number] Implanted:Qty: 2 on 11/17/2017 by Hong Becerra DO at OR [facility] Right: Shoulder [employer] 10/29/2018 [id number] C / / [id number] Sut Maplewood Biocomp 4.75mm Min5 - [id number] Implanted:Qty: 1 on 11/17/2017 by Hong Becerra DO at OR [facility] Right: Shoulder [employer] 05/31/[address] / / [id number] documented as of this encounter Visit Diagnoses Diagnosis Memory changes [R41.3]- Primary Memory loss documented in this encounter Advance Directives Documents on File Type Date Recorded Patient Rag Inspector Expl anation Advance Directives and Living Will 04/07/2005 Power of Musculoskeletal Physiotherapist 04/07/2005 * Full Code (Latest Code Status [...] 7:34 AM 04/07/2005 8:34 AM Care Teams Music Critic Relationship Specialty Start Date End Date Zaid Arnold DO [address] [place] [address] PCP - General Family Medicine 11/14/16 documented as of this encounter
--- OUTSIDE RECORDS SUMMARY | 2024-09-30 16:25 | External Medical Summary ---
Author Name Unknown Address Unknown Organization [id number]:[facility] [place] [address] [facility] [address] Laboratory Report Ordering Provider Test Date Status HONORIO MOTT 09/13/2024 12:07:45 Final Observation Date Value Abnormality Reference (Units) Status PARAPROTEIN NORMAL/ABNORMAL 09/13/2024 12:07:45 Normal Normal Final Protein 09/13/2024 12:07:45 6.7 6.0-8.3 (g/dL) Final Albumin/Protein.total [Pure mass fraction] in Serum or Plasma by Electrophoresis 09/13/2024 12:07:45 3.19 Below low normal 3.30-4.40 (g/dL) Final Alpha 1 globulin/Protein.tota l [Pure mass fraction] in Serum or Plasma by Electrophoresis 09/13/2024 12:07:45 0.21 0.10-0.30 (g/dL) Final Alpha 2 globulin/Protein.tota l [Pure mass fraction] in Serum or Plasma by Electrophoresis 09/13/2024 12:07:45 0.96 0.60-1.00 (g/dL) Final Beta globulin/Protein.tota l [Pure mass fraction] in Serum or Plasma by Electrophoresis 09/13/2024 12:07:45 1.12 0.80-1.30 (g/dL) Final Gamma globulin/Protein.tota l [Pure mass fraction] in Serum or Plasma by Electrophoresis 09/13/2024 12:07:45 1.22 0.70-1.70 (g/dL) Final Protein Fractions [Interpretation] in Serum or Plasma by Electrophoresis Narrative 09/13/2024 12:07:45 No paraprotein detected. Final Performing Location [facility] [place] [address] [facility] [facility] [address]
--- OUTSIDE RECORDS SUMMARY | 2024-09-30 16:25 | External Medical Summary | Summary of Care ---
Author Name Unknown Organization [facility] Address [address] [place] [address] Phone [phone] Care Team Providers Care Accounts Payables Clerk Name Role Phone ClaytonZaid Julian SNOW Primary Care Provider [phone] Reason for Visit * Reason Comments Outpatient Testing Encounter Details Date Type Department Care Team (Latest Contact Info) Description 09/13/2024 12:10 PM EDT Laboratory Laboratory [facility] [address] [place] [address] [facility] [address] [place] [address] Cerebrovascular accident (CVA), unspecified mechanism (HCC); Memory changes; Idiopathic progressive polyneuropathy Allergies Active [...] 2014 - AHI 20.9, desats 29 mins [facility] 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 5 Overview (02/21/2015): Holger Osman MD at [facility] Dyslipidemia 12/22/2014 Angioma 07/27/2013 Type 2 diabetes mellitus wit h hemoglobin A1c goal of less than 7.0% 03/27/2011 Overview (09/25/2015): ICD-10 update of inactive term History of Clostridium difficile infection 11/29 Overview (03/31/2012): Hospitalized at [facility] History of colonic polyps 03/14/2009 Overview [...] and other sites, not elsewhere classified 12/15/2000 12/19/20 17 LUMB-LUMBOSAC DISC DEGEN DM type 2, [...] 6:28 PM ELISAT Heidy Melgar RN * Are you blind [...] 6:28 PM EDT Heidy Melgar RN documented as of this encounter Mental Status * Because of a physical, mental, or emotional condition, do you have serious difficulty concentrating, remembering, or making decisions? (5 years old or older) Answer Entry Date Author No 11/17/2017 6:28 PM EDT Heidy Melgar RN documented in this encounter Plan of Treatment Upcoming Encounters Date Type Department Care Team (Late st Contact Info) Description 09/14/2024 9:00 AM EDT NeuroDiagnostic Study Neurophysiology [facility] [address] [place] [address] Sp, Neurophys Tech [address] [place] [address] 10/13/2024 9:45 AM EDT Imaging Radiology [address] [place] [phone] 10/19/2024 9:30 AM EDT Office Visit Orthopaedics [facility] [address] [place] [address] Kayden oCppola S, DO [address] [place] [address] 01/26/2025 9:20 AM EDT Office Visit Neurology [facility] [address] [place] [address] Mariangel Holm MD [address] [facility] [place] [address] 04/28/2025 4:00 PM EST Office Visit Family Practice [facility] Kar[facility] Elliott [address] [facility] [place] [address] Zaid Arnold DO [address] [facility] [place] [address] Pending Results Name Type Priority Associated Diagnoses Date /Time MONOCLONAL GAMMOPATHIES SCREENING PANEL Lab Routine Cerebrovascular accident (CVA), unspecified mechanism (HCC) Memory changes Idiopathic progressive polyneuropathy 09/13/2024 12:07 PM EDT SERUM PROTEIN ELECTROPHORESIS REFLEX PROFILE Lab Routine Cerebrovascular accident (CVA), unspecified mechanism (HCC) Memory changes Idiopathic progressive polyneuropathy 09/13/2024 12:07 PM EDT SERUM FREE LIGHT CHAINS Lab Routine Cerebrovascular accident (CVA), unspecified mechanism (HCC) Memory changes Idiopathic progressive polyneuropathy 09/13/2024 12:07 PM EDT SERUM IMMUNOFIXATION Lab Routine Cerebrovascular accident (CVA), unspecified mechanism (HCC) Memory changes Idiopathic progressive polyneuropathy 09/13/2024 12:07 PM EDT Scheduled Procedures Name Priority Associated Diagnoses Date/Ti [...] this encounter Medical Devices Implanted Type Area Canal Tender Device Identifier Shelf Expiration Date Model / Serial / Lot Graft Bifur [id number] - [id number] - [id number] Implanted:Qty: 1 on 07/20/2017 by Holger Fair MD at [place] [facility] [place] N/A: Aorta [employer] : VASCULAR 03/31/2019 [id number] / [id number] / Limb Contralat [id number] - [id number] - [id number] Implanted:Qty: 1 on 07/20/2017 by Holger Fair MD at [place] [facility] [place] Left: Aorta [employer] : VASCULAR 04/27/2019 [id number] / [id number] / Aequalis Perform Cortiloc Pegged Glenoid Implanted:Qty: 1 on 11/17/2017 by Hong Becerra DO at OR [facility] Right: Shoulder [employer] 08/09/2020 [id number] / [id number] / Cement Bone Simplex Hv & G - [id number] Implanted:Qty: 1 on 11/17/2017 by Hong Becerra DO at OR [facility] Right: Shoulder JARED : ORTHOPAEDICS 12/29/2018 6195-1-01 0 / / [id number] Y Flex Shoulder System Aequalis Humeral Head 52mm 19mm Implanted:Qty: 1 on 11/17/2017 by Hong Becerra, at OR [facility] Right: Shoulder [employer] 06/10/2022 [id number] / [id number] / Standard Ptc Humeral Stem Implanted:Qty: 1 on 11/17/2017 by Hong Becerra DO at OR [facility] Right: Shoulder [employer] 04/10/2021 [id number] / [id number] / Borup Suture Biocomposite - [id number] Implanted:Qty: 2 on 11/17/2017 by Hong Becerra DO at OR [facility] Right: Shoulder [employer] 10/29/2018 AR-2324BC C / / [id number] Sut Borup Biocomp 4.75mm Min5 - [id number] Implanted:Qty: 1 on 11/17/2017 by Hong Becerra DO at OR [facility] Right: Shoulder [employer] 05/31/[address] AR-[address] / / [id number] documented as of this encounter Visit Diagnoses Diagnosis Cerebrovascular accident (CVA), unspecified mechanism (HCC) Memory changes Memory loss Idiopathic progressive polyneuropathy documented in this encounter Advance Directives Documents on File Type Date Recorded Patient Teachers' Assistant Expl anation Advance Directives and Living Will 04/07/2005 Power of Audiology Doctor 04/07/2005 * Full Code (Latest Code Status [...] 7:34 AM 04/07/2005 8:34 AM Care Teams Accounts Payables Clerk Relationship Specialty Start Date End Date Zaid Arnold DO [address] [place] [address] [place] [address] PCP - General Family Medicine 11/14/16 documented as of this encounter
--- OUTSIDE RECORDS SUMMARY | 2024-09-30 16:25 | External Medical Summary ---
Author Name Unknown Address Unknown Organization [id number]:LABORATORY [facility] [place] - [facility] [address] [facility] [address] [place] [address] Laboratory Report Ordering Provider Test Date Status VICENTE MOTTHETAL 09/13/2024 12:07:45 Final Observation Date Value Abnormality Reference (Units ) Status Borrelia burgdorferi IgG and IgM [Interpretation] in Serum by Immunoassay 09/13/2024 12:07:45 Negative Negative Final Performing Location LABORATORY [facility] [place] - [facility] [address] [place] [address]
--- OUTSIDE RECORDS SUMMARY | 2024-09-30 16:25 | External Medical Summary ---
Author Name Unknown Address Unknown Organization K09:[facility] [place] [address] Laboratory Report Ordering Provider Test Date Status HONORIO MOTT 09/13/2024 12:07:45 Final Observation Date Value Abnormality Reference (Units ) Status WBC, Total 09/13/2024 12:07:45 9.81 4.00-10.8 0 (K/uL) Final RBC 09/13/2024 12:07:45 5.13 4.50-5.25 (M/uL) Final Hemoglobin 09/13/2024 12:07:45 15.7 14.0-16.8 (g/dL) Final HCT 09/13/2024 12:07:45 47.8 40.0-48.4 (%) Final MCV 09/13/2024 12:07:45 93.2 82.0-99.5 (fL) Final MCH 09/13/2024 12:07:45 30.6 27.0-34.0 (pg) Final MCHC 09/13/2024 12:07:45 32.8 32.0-36.0 (g/dL) Final RDW 09/13/2024 12:07:45 13.8 11.5-15.5 (%) Final Platelets 09/13/2024 12:07:45 209 140-400 (K /uL) Final MPV 09/13/2024 12:07:45 10.1 6.6-11.1 ( fL) Final Performing Location [facility] [place] [address]
--- OUTSIDE RECORDS SUMMARY | 2024-09-30 16:25 | External Medical Summary ---
Author Name Unknown Address Unknown Organization K01:LABORATORY [place] - [address] [place] [address] [place] [address] Laboratory Report Ordering Provider Test Date Status HONORIO MOTT 09/13/2024 12:07:45 Final Observation Date Value Abnormality Reference (Units ) Status Vitamin B12 09/13/2024 12:07:45 [phone] (pg/mL) Final Performing Location LABORATORY [facility] - [address] [place] [address]
--- OUTSIDE RECORDS SUMMARY | 2024-09-30 16:25 | External Medical Summary ---
Author Name Unknown Address Unknown Organization K01:[facility] [place] [facility] [place] [facility] [place] [address] Laboratory Report Ordering Provider Test Date Status HONORIO MOTT 09/13/2024 12:07:45 Final Observation Date Value Abnormality Reference (Units) Status PARAPROTEIN NORMAL/ABNORMAL 09/13/2024 12:07:45 Normal Normal Final Immunofixation for Serum or Plasma 09/13/2024 12:07:45 No monoclonal gammopathy detected. Final Performing Location [facility] [place] [address] [place] [address]
--- OUTSIDE RECORDS SUMMARY | 2024-09-30 16:26 | External Medical Summary ---
Author Name Unknown Address Unknown Organization K01[place] [facility] [place] [facility] [address] Laboratory Report Ordering Provider Test Date Status JANEL SIMS 09/06/2024 11:14:18 Final Normal: <30 mg/g creatinine< br/>High: 30-300 mg/g creatinine
Very High: >300 mg/g creatinine
Nephrotic: >2200 mg/g creatinine Observation Date Value Abnormality Reference (Units ) Status Albumin, Urine 09/06/2024 11:14:18 9.00 (mg/dL) Final Creatinine, Urine 09/06/2024 11:14:18 128 (mg/dL) Final Albumin/Creatinine [Mass Ratio] in Urine 09/06/2024 11:14:18 70 Above high normal <30 (mg/g Creat) Final Performing Location [place] [facility] [place] [facility] [address] [place] [place] [address]
--- OUTSIDE RECORDS SUMMARY | 2024-09-30 16:26 | External Medical Summary | Summary of Care ---
Author Name Unknown Organization [facility] Address [address] [place] [address] Phone [phone] Care Team Providers Care Alum Mixer Name Role Phone Fercho Casper DO Primary Care Provider [phone] Reason for Visit * Reason Comments eRx-Medication Refill Encounter Details Date Type Department Care Team (Late st Contact Info) Description 09/05/2024 Refill Family Practice [facility] [address] [place] [address] Fercho Casper DO [address] [place] [address] Allergies Active Allergy Reactions Criticality Noted Date Comments Latex Rash 11/17/2017 Powdered latex Tetracycline 12/31/1999 rash documented as of this encounter (statuses as of 09/06/2024) Medications CENTRUM SILVER PO TABS Take by mouth . 0 Active TUMS 500 MG PO CHEW Take by mouth . 1 bottle 11 009 Active ONETOUCH ULTRA SYSTEM W/DEVICE KITIndications:DM type 2, not at goal (HCC) Use up to four times a day as directed 1 0 009 Active OneTouch UltraSoft Lancets MISC Onetouch Ultrasoft Lancets Active OneTouch Ultra Blue In Vitro Strip (Glucose Blood) use to TEST UP TO four times a day as directed. E11.9 400 Strip 3 021 Active Rizatriptan Benzoate 10 MG Oral Tablet Take 1 Tablet by mouth as needed for Migraine. Active Diclofenac Sodium 1 % External Gel (Voltaren)Indicati ons:Chronic pain of right knee Apply topically to affected area 2 times a day. Apply to right knee 100 g 5 023 Active OneTouch Ultra In Vitro Strip (Glucose Blood) Use to test blood sugar up to 4 times daily. Dx E11.9 100 Strip 5 024 Active Albuterol Sulfate HFA 108 (90 Base) MCG/ACT Inhalation Aerosol SolutionIndication s:Wheezing inhale 2 puffs by mouth every 4 hours if needed for wheezing 18 g 5 024 Active Atorvastatin Calcium 40 MG Oral Tablet (Lipitor)Indicatio ns:Type 2 diabetes mellitus with hemoglobin A1c goal of less than 7.0% (HCC),Left pontine cerebrovascular accident (HCC) Take 1 Tablet by mouth in the morning. 90 Tablet 1 024 Active Propranolol HCl ER 80 MG Oral Capsule Extended Release 24 Hour (Inderal LA) Take 1 Capsule by mouth in the morning. 90 Capsule 3 024 Active Losartan Potassium 25 MG Oral Tablet (Cozaar)Indication s:HTN, goal below 140/90 Take 1 Tablet by mouth in the morning. In the morning.. 90 Tablet 2 024 Active traZODone HCl 50 MG Oral Tablet (Desyrel) Take 1 Tablet by mouth at bedtime. 90 Tablet 1 024 Active FLUoxetine HCl 40 MG Oral Capsule (PROzac)Indication s:Depression, unspecified depression type TAKE 1 CAPSULE BY MOUTH ONCE DAILY 90 Capsule 1 024 Active buPROPion HCl ER (XL) 150 MG Oral Tablet Extended Release 24 Hour (Wellbutrin XL) TAKE 1 TABLET BY MOUTH EVERY MORNING 30 Tablet 5 024 Active FLUoxetine HCl 20 MG Oral Capsule (PROzac)Indication s:Dysthymia TAKE 1 CAPSULE BY MOUTH EVERY MORNING 90 Capsule 2 024 Active Pantoprazole Sodium 40 MG Oral Tablet Delayed Release (Protonix) TAKE 1 TABLET BY MOUTH EVERY MORNING AND 1 TABLET BEFORE BEDTIME 60 Tablet 5 025 Active LORazepam 1 MG Oral Tablet (Ativan) Take 1 tablet by mouth BEFORE BEDTIME if needed for anxiety 30 Tablet 2 025 Active traMADol HCl 50 MG Oral Tablet (Ultram)Indication s:Bilateral hip pain,Spinal stenosis of lumbar region without neurogenic claudication Take 1 Tablet by mouth every 6 hours as needed for Pain, Severe 60 Tablet 025 Active Clopidogrel Bisulfate 75 MG Oral Tablet (pLAVix)Indication s:Left pontine cerebrovascular accident (HCC) TAKE 1 TABLET BY MOUTH EVERY MORNING 90 Tablet 025 Active busPIRone HCl 5 MG Oral Tablet (Buspar) Take 1 Tablet by mouth daily at noon. 30 Tablet 5 025 Active Acetaminophen 500 MG Oral Tablet (Tylenol) Take 1 Tablet by mouth every 6 hours as needed. 2024 Discontinued(M edication/Dose Changed) busPIRone HCl 5 MG Oral Tablet (Buspar) Take 1 Tablet by mouth daily at noon. 30 Tablet 5 024 2024 Discontinued Sildenafil Citrate 50 MG Oral Tablet Take 1 Tablet by mouth daily as needed for Erectile Dysfunction. 10 Tablet 5 024 2024 Discontinued documented as of this encounter (statuses as of 09/06/2024) Active Problems Problem Noted Date Diagnosed Date [...] 5 Overview (02/21/2015): Holger Osman MD at [facility] Dyslipidemia 12/22/2014 Angioma 07/27/2013 Type 2 diabetes mellitus wit h hemoglobin A1c goal of less than 7.0% 03/27/2011 Overview (09/25/2015): ICD-10 update of inactive term History of Clostridium difficile infection 11/29 Overview (03/31/2012): Hospitalized at [facility] History of colonic polyps 03/14/2009 Overview (03/18/2009): 5 mm ceacal adenoma, repeat 3-5 yers SPINAL STENOSIS-LUMBAR 01/25/2001 CLASSICAL MIGRAINE WITHOU MENTION OF INTRACTABLE MIGRAINE Diverticulosis of colon documented as of this encounter (statuses as of 09/06/2024) Resolved Problems Problem Noted Date Diagnosed Date [...] as of this encounter (statuses as of 09/06/2024) Immunizations Name Administration Dates Next Due COVID-19 [...] Telephone Encounter - Fercho Casper DO - 09/06/2024 10:23 AM EDTSigned Prescriptions: Disp Refills busPIRone HCl 5 MG Oral Tablet (Buspar) 30 Tab*5 Sig: Take 1 Tablet by mouth daily at noon. Authorizing Provider: FERCHO CASPER * Telephone Encounter - [facility] - 09/05/2024 8:02 PM EDT Pending Prescriptions: Disp Refills busPIRone HCl 5 MG Oral Tablet (Buspar) 30 Tab*5 Sig: Take 1 Tablet by mouth daily at noon. Electronically signed by [facility] at 09/05/2024 8:02 PM EDT documented in this encounter Plan of Treatment Upcoming Encounters Date Type Department Care Team (Late st Contact Info) Description 09/07/2024 8:30 AM EDT Office Visit Orthopaedics [facility] [address] [place] [phone] Kayden Coppola, DO [address] [place] [phone] 09/13/2024 11:20 AM EDT Office Visit Neurology [facility] [address] [place] [address] Mariangel Holm MD [address] [place] [address] 04/28/2025 4:00 PM EST Office Visit Family Practice [facility] [address] [place] [address] Fercho Casper DO [address] [facility] [place] [address] Scheduled Procedures Name Priority Associated Diagnoses Date/Ti [...] Vaccine ( season) 2024 05/01/2021, 08/08/2020, 06/30/2020 Albumin/Creatinine Ratio 03/23/2024 023, 10/01/2021, 08/24/2020, Additional history exists Diabetic Foot Exam 03/23/2024 03/23/2023, 1 , 08/24/2020, Additional history exists HbA1c 03/24/2024 09/23/2023, 03/02, 04/29/2022, Additional history exists GFR 09/22/2024 09/06/2024, 08/31, 08/26/2023, Additional history exists O2 ASSESSMENT COMPLETED IN PAST YEAR FOR COPD 10/14/2024 10/15/2023 Influenza Vaccine (FLU shot) (Season Ended) 2025 03/23/2023, 04/12/2021, 04/04/2019, Additional history exists Colonoscopy 03/20/2025 03/20/2020, 03/02, 05/08/2014, Additional history exists Colorectal Cancer Screening 03/20/2025 Pneumococcal Vaccine: 50+ Years Completed 11/25/2016, 03/15/2015, [...] this encounter Medical Devices Implanted Type Area Wood Shop Teacher Device Identifier Shelf Expiration Date Model / Serial / Lot Graft Bifur [id number] - [id number] - [id number] Implanted:Qty: 1 on 07/20/2017 by Holger Fair MD at [place] [facility] N/A: Aorta MED[employer] : VASCULAR 03/31/2019 [id number] / [id number] / Limb Contralat [id number] - [id number] - [id number] Implanted:Qty: 1 on 07/20/2017 by Holger Fair MD at OR [facility] Left: Aorta [employer] : VASCULAR 04/27/2019 [id number] / [id number] / Aequalis Perform Cortiloc Pegged Glenoid Implanted:Qty: 1 on 11/17/2017 by Hong Becerra DO at OR [facility] Right: Shoulder [employer] 08/09/2020 [id number] / [id number] / Cement Bone Simplex Hv & G - [id number] Implanted:Qty: 1 on 11/17/2017 by Hong Becerra DO at OR [facility] Right: Shoulder JARED : ORTHOPAEDICS 12/29/2018 6195-1-01 0 / / [id number] Y Flex Shoulder System Aequalis Humeral Head 52mm 19mm Implanted:Qty: 1 on 11/17/2017 by Hong Becerra DO at OR [facility] Right: Shoulder [employer] 06/10/2022 [id number] / [id number] / Standard Ptc Humeral Stem Implanted:Qty: 1 on 11/17/2017 by Hong Becerra DO at OR [facility] Right: Shoulder [employer] 04/10/2021 [id number] / [id number] / [place] Suture Biocomposite - [id number] Implanted:Qty: 2 on 11/17/2017 by Hong Becerra DO at OR [facility] Right: Shoulder [employer] 10/29/2018 AR-2324BC C / / [id number] Sut [place] Biocomp 4.75mm Min5 - [id number] Implanted:Qty: 1 on 11/17/2017 by Hong Becerra DO at OR [facility] Right: Shoulder [employer] 05/31/[address] / / [id number] documented as of this encounter Advance Directives Documents on File Type Date Recorded Patient Coil Winder Repair Expl anation Advance Directives and Living Will 04/07/2005 Power of Sat Tutor 04/07/2005 * Full Code (Latest Code Status [...] 7:34 AM 04/07/2005 8:34 AM Care Teams Alum Mixer Relationship Specialty Start Date End Date Fercho Casper DO [address] [place] [address] PCP - General Family Medicine 11/14/16 documented as of this encounter
--- OUTSIDE RECORDS SUMMARY | 2024-09-30 16:26 | External Medical Summary | Summary of Care ---
Author Name Unknown Organization [facility] Address [address] [place] [address] Phone [phone] Care Team Providers Care Him Tech Name Role Phone Clayton Zaid Julian SNOW Primary Care Provider [phone] Reason for Visit * Reason Comments Outpatient Testing Encounter Details Date Type Department Care Team (Late st Contact Info) Description 09/06/2024 11:10 AM EDT Laboratory Laboratory [facility] [address] [place] [address] [facility] [address] [facility] [place] [address] Type 2 diabetes mellitus with diabetic mononeuropathy, without long-term current use of insulin ([facility]); Dyslipidemia; Routine medical exam; Type 2 diabetes mellitus with diabetic polyneuropathy, unspecified whether fdc insulin use ([facility]) Allergies Active Allergy Reactions Criticality Noted Date Comments Latex Rash 11/17/2017 Powdered latex Tetracycline 12/31/1999 rash documented as of this encounter (statuses as of 09/06/2024) Medications CENTRUM SILVER PO TABS Take by mouth . 0 9 Active TUMS 500 MG PO CHEW Take by mouth . 1 bottle 11 9 Active [employer] CoTOUCH ULTRA SYSTEM W/DEVICE KITIndications:DM type 2, not at goal ([facility]) Use up to four times a day [...] hemoglobin A1c goal of less than 7.0% ([facility]),Left pontine cerebrovascular accident ([facility]) Take 1 Tablet by mouth in the [...] Oral Liquid One bottle twice daily Active Sildenafil Citrate 100 MG Oral Tablet (Viagra)Indications :Erectile dysfunction, unspecified erectile dysfunction type Take 1 Tablet by mouth once for 1 dose. 1-4 hours before intercourse, no more than 1 dose in 24 hours. 10 Tablet 5 5 025 Active OLANZapine 2.5 MG Oral TabletIndications:E xcoriation [...] 2015 - AHI 20.9, desats 29 mins [facility] 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 5 Overview (02/21/2015): Holger Osman MD at [facility] Dyslipidemia 12/22/2014 Angioma 07/27/2013 Type 2 diabetes mellitus wit h hemoglobin A1c goal of less than 7.0% 03/27/2011 Overview (09/25/2015): ICD-10 update of inactive term History of Clostridium difficile infection 11/29 Overview (03/31/2012): Hospitalized at [facility] History of colonic polyps 03/14/2009 [...] No 09/05/2024 Does the household have a presbyterian hospitallar source of income? (Household - for ages [...] Assessment Author No 11/17/2017 6:28 PM ELISAT Xiao Melgar RN documented as of this encounter [...] 09/07/2024 8:30 AM EDT Office Visit Orthopaedics [facility] [address] [place] [phone] Kayden Coppola, DO [address] [place] [phone] 09/13/2024 11:20 AM EDT Office Visit Neurology [facility] [address] [place] [address] Mariangel Holm MD [address] [place] [address] 04/28/2025 4:00 PM EST Office Visit Family Practice [facility] [address] [place] [address] Zaid Arnold, DO [address] [place] [address] Pending Results Name Type Priority Associated Diagnoses Date /Time HEMOGLOBIN A1C Lab Routine Type 2 diabetes mellitus with diabetic mononeuropathy, without long-term current use of insulin (HCC) 09/06/2024 11:14 AM EDT LIPID PANEL WITH DIRECT LDL IF TG IS HIGH Lab Routine Dyslipidemia 09/06/2024 11:14 AM EDT ALBUMIN / CREATININE RATIO, URINE Lab Routine Routine medical exam Type 2 diabetes mellitus with diabetic polyneuropathy, unspecified whether fdc insulin use (HCC) 09/06/2024 11:14 AM EDT Scheduled Procedures Name Priority Associated Diagnoses [...] this encounter Medical Devices Implanted Type Area Event Promoter Device Identifier Shelf Expiration Date Model / Serial / Lot Graft Bifur [id number] - [id number] - [id number] Implanted:Qty: 1 on 07/20/2017 by Holger Fair MD at OR [facility] N/A: Aorta [employer] : VASCULAR 03/31/2019 [id number] [id number] / [id number] / Limb Contralat [id number] - [id number] - [id number] Implanted:Qty: 1 on 07/20/2017 by Holger Fair MD at OR [facility] Left: Aorta [employer] : VASCULAR 04/27/2019 [id number] 124E / [id number] / Aequalis Perform Cortiloc Pegged Glenoid Implanted:Qty: 1 on 11/17/2017 by Hong Becerra DO at OR [facility] Right: Shoulder [employer] 08/09/2020 [id number] / [id number] / Cement Bone Simplex Hv & G - [id number] Implanted:Qty: 1 on 11/17/2017 by Hong Becerra DO at OR [facility] Right: Shoulder JARED : ORTHOPAEDICS 12/29/2018 6195-1-01 0 / / [id number] Y Flex Shoulder System Aequalis Humeral Head 52mm 19mm Implanted:Qty: 1 on 11/17/2017 by Hong Becerra DO at OR [facility] Right: Shoulder [employer] 06/10/2022 [id number] / [id number] / Standard Ptc Humeral Stem Implanted:Qty: 1 on 11/17/2017 by Hong Becerra DO at OR [facility] Right: Shoulder [employer] 04/10/2021 [id number] / [id number] / [place] Suture Biocomposite - [id number] Implanted:Qty: 2 on 11/17/2017 by Hong Becerra DO at OR [facility] Right: Shoulder [employer] 10/29/2018 AR-2324BC C / / [id number] Sut [place] Biocomp 4.75mm Min5 - [id number] Implanted:Qty: 1 on 11/17/2017 by Hong Becerra DO at OR [facility] Right: Shoulder [employer] 05/31/2019 AR-[address] / / [id number] documented as of this encounter Procedures Procedure Name Priority Date/Time Associated Diagnosis Comments COMPREHENSIVE METABOLIC PANEL Routine 09/06/2024 11:14 AM EDT Dyslipidemia documented in this encounter Results * (ABNORMAL) COMPREHENSIVE METABOLIC PANEL (09/06/2024 11:14 AM EDT) BUN 24(H) 6 - 20 mg/dL 09/06/2024 12:41 PM EDT [facility] 56- CREATININE 0.9 0.6 - 1.2 mg/dL 09/06/2024 12:41 PM EDT [facility] 56- EGFR >90 >=60 mL/min 09/06/2024 12:41 PM EDT [facility] 56- Comment:eGFR is calculated b ased on the CKD-EPI 2020 equation. SODIUM 142 135 - 146 mmol/L 09/06/2024 12:41 PM EDT [facility] 56- POTASSIUM 4.6 3.5 - 5.1 mmol/L 09/06/2024 12:41 PM EDT [facility] CHLORIDE 105 98 - 107 mmol/L 09/06/2024 12:[address] EDT [address] CO2 28 22 - 32 mmol/L 09/06/2024 12:41 PM EDT [address] ANION GAP 9 7 - 15 mmol/L 09/06/2024 12:41 PM EDT [place] [address] GLUCOSE 101 70 - 120 mg/dL 09/06/2024 12:41 PM EDT [place] [address] Albumin 4.2 3.8 - 5.0 g/dL 09/06/2024 12:41 PM EDT [place] [address] AST 28 10 - 50 U/L 09/06/2024 12:41 PM EDT [place] [address] Alkaline Phosphatase 108 35 - 130 U/L 09/06/2024 12:41 PM EDT [place] [address] Bilirubin, Total 0.5 <=1.2 mg/dL 09/06/2024 12:41 PM EDT [place] [address] CALCIUM 9.9 8.4 - 10.2 mg/dL 09/06/2024 12:41 PM EDT [place] [address] Protein 7.2 6.0 - 8.3 g/dL 09/06/2024 12:41 PM EDT [place] [address] ALT 19 10 - 50 U/L 09/06/2024 12:41 PM EDT [place] [address] Blood Venous blood specimen / Unknown Venipuncture / Unknown 09/06/2024 11:14 AM EDT 09/06/2024 11:14 AM EDT us Zaid Arnold DO LAB BLOOD ORDERABLES Final Result [place] [address] [place] [address] documented in this encounter Visit Diagnoses Diagnosis Type 2 diabetes mellitus with diabetic mononeuropathy, without long-term current use of insulin (HCC) Dyslipidemia Other and unspecified hyperlipidemia Routine medical exam Routine general medical examination at a health care facility Type 2 diabetes mellitus with diabetic polyneuropathy, unspecified whether fdc insulin use (HCC) documented in this encounter Advance Directives Documents on File Type Date Recorded Patient Insurance Claims Representative Expl anation Advance Directives and Living Will 04/07/2005 Power of Regulatory Product Manager 04/07/2005 * Full Code (Latest Code Status [...] 7:34 AM 04/07/2005 8:34 AM Care Teams Him Tech Relationship Specialty Start Date End Date Zaid Arnold DO [address] [place] [address] PCP - General Family Medicine 11/14/16 documented as of this encounter
--- OUTSIDE RECORDS SUMMARY | 2024-09-30 16:26 | External Medical Summary | Summary of Care ---
Author Name Unknown Organization [facility] Address [address] [place] [address] Phone [phone] Care Team Providers Care Paving And Surfacing Labourer Name Role Phone Zaid Arnold DO Primary Care Provider [phone] Reason for Visit * Reason Onset Date Comments Test Results Lab 09/12/2024 Encounter Details Date Type Department Care Team (Late st Contact Info) Description 09/12/2024 Telephone Family Practice [facility] [address] [place] [address] Zaid Arnold DO [address] [place] [address] Test Results Lab Allergies Active Allergy Reactions Criticality Noted Date Comments Latex Rash 11/17/2017 Powdered latex Tetracycline 12/31/1999 rash documented as of this encounter (statuses as of 09/12/2024) Medications CENTRUM SILVER PO TABS Take by [...] as of this encounter (statuses as of 09/12/2024) Active Problems Problem Noted Date Diagnosed Date [...] 2014 - AHI 20.9, desats 29 mins [facility] 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 5 Overview (02/21/2015): Holger Osman MD at [facility] Dyslipidemia 12/22/2014 Angioma 07/27/2013 Type 2 diabetes mellitus wit h hemoglobin A1c goal of less than 7.0% 03/27/2011 Overview (09/25/2015): ICD-10 update of inactive term History of Clostridium difficile infection 11/29 Overview (03/31/2012): Hospitalized at [facility] History of colonic polyps 03/14/2009 Overview (03/18/2009): 5 mm ceacal adenoma, repeat 3-5 yers SPINAL STENOSIS-LUMBAR 01/25/2001 CLASSICAL MIGRAINE WITHOU MENTION OF INTRACTABLE MIGRAINE Diverticulosis of colon documented as of this encounter (statuses as of 09/12/2024) Resolved Problems Problem Noted Date Diagnosed Date [...] as of this encounter (statuses as of 09/12/2024) Immunizations Name Administration Dates Next Due COVID-19 [...] encounter Miscellaneous Notes * Telephone Encounter - Zaid Arnold DO - 09/12/2024 2:24 PM EDT Input appreciated. Would hold on further changes for now. * Telephone Encounter - Yudith Dela Cruz RPh - 09/12/2024 11:48 AM EDT Images from the original note were not included. Reviewed labs. A1C, CMP, lipids stable. Alb/Cr ratio increased since last check. On Losartan 25 mg daily - pt appears adherent per fill hx. Last BP slightly elevated at appt however noted knee pain/temper flaring so not sure if true value to determine if consideration of dose increase Losartan could be considered. Forwarding to PCP for further review. BP Readings from Last 3 Encounters: 09/06/24 144/84 02/09/24 122/72 10/19/23 136/68 Thank you, Yudith Dela Cruz, PharmD Clinical Pharmacist [facility] 09/12/24 11:49 AM [phone] documented in this encounter Plan of Treatment Upcoming Encounters Date Type Department Care Team (Late st Contact Info) Description 09/13/2024 11:20 AM EDT Office Visit Neurology [facility] [address] [place] [address] Mariangel Holm MD 200 [facility] [place] [address] 10/19/2024 9:30 AM EDT Office Visit Orthopaedics [facility] [address] [place] [phone] Kayden Coppola, DO [address] [place] [phone] 04/28/2025 4:00 PM EST Office Visit Family Practice [facility] [address] [place] [address] Zaid Arnold, DO [address] [facility] [place] [address] Scheduled Procedures Name Priority Associated Diagnoses Date/Ti [...] this encounter Medical Devices Implanted Type Area Alarm Signaler Device Identifier Shelf Expiration Date Model / Serial / Lot Graft Bifur [id number] - [id number] - [id number] Implanted:Qty: 1 on 07/20/2017 by Holger Fair MD at [place] [facility] N/A: Aorta [employer] : VASCULAR 03/31/2019 [id number] 166E / [id number] / Limb Contralat [id number] - [id number] - [id number] Implanted:Qty: 1 on 07/20/2017 by Holger Fair MD at [place] [facility] Left: Aorta [employer] : VASCULAR 04/27/2019 [id number] / [id number] / Aequalis Perform Cortiloc Pegged Glenoid Implanted:Qty: 1 on 11/17/2017 by Hong Becerra DO at OR [facility] Right: Shoulder [employer] 08/09/2020 [id number] / [id number] / Cement Bone Simplex Hv & G - [id number] Implanted:Qty: 1 on 11/17/2017 by Hong Becerra DO at OR [facility] Right: Shoulder JARED : ORTHOPAEDICS 12/29/2018 6195-1-01 0 / / [id number] Y Flex Shoulder System Aequalis Humeral Head 52mm 19mm Implanted:Qty: 1 on 11/17/2017 by Hong Becerra, at OR [facility] Right: Shoulder [employer] 06/10/2022 [id number] / [id number] / Standard Ptc Humeral Stem Implanted:Qty: 1 on 11/17/2017 by Hong Becerra DO at OR [facility] Right: Shoulder [employer] 04/10/2021 [id number] / [id number] / [place] Suture Biocomposite - [id number] Implanted:Qty: 2 on 11/17/2017 by Hong Becerra DO at OR [facility] Right: Shoulder [employer] 10/29/2018 AR-2324BC C / / [id number] Sut [place] Biocomp 4.75mm Min5 - [id number] Implanted:Qty: 1 on 11/17/2017 by Hong Becerra DO at OR [facility] Right: Shoulder [employer] 05/31/[address] / / [id number] documented as of this encounter Advance Directives Documents on File Type Date Recorded Patient Practicing Urologist Expl anation Advance Directives and Living Will 04/07/2005 Power of Military Personnel Specialist 04/07/2005 * Full Code (Latest Code Status [...] 7:34 AM 04/07/2005 8:34 AM Care Teams Paving And Surfacing Labourer Relationship Specialty Start Date End Date Zaid Arnold DO [address] [place] [address] PCP - General Family Medicine 11/14/16 documented as of this encounter
--- OUTSIDE RECORDS SUMMARY | 2024-09-30 16:26 | External Medical Summary | Summary of Care ---
Author Name Unknown Organization [facility] Address [address] [place] [address] Phone [phone] Care Team Providers Care Brick Offbearer Name Role Phone Zaid Arnold DO Primary Care Provider [phone] Reason for Referral * Evaluate & Treat - Unlimited Visits (Within 30 days (routine)) - Authorized Specialty Diagnoses / Procedures Referred By Leroy nazario Referred To Contact Neurology Diagnoses Hemiplegia and hemiparesis following cerebral infarction affecting right dominant side (HCC) Memory loss due to medical condition Zaid Arnold DO [address] [place] [address] Phone: tel: fax: Referral ID Status Reason Start Date Expiration Date Visits Requested Visits Authorized [id number] Authorized Specialty Services Required 09/06/2024 [id number] Question Answer Referral Priority Within 30 days (routine) Where should this appointment be scheduled? [facility] Is this referral being placed for insurance purposes ONLY No, patient needs appointment [facility] NEUROLOGY REFERRAL QUESTIONS Stroke Comments History of stroke and continued worsening memory issues * Evaluate & Treat - Unlimited Visits (Within 30 days (routine)) - Authorized Specialty Diagnoses / Procedures Referred By Leroy nazario Referred To Contact Orthopaedic Surgery / Orthopedics Diagnoses Chronic pain of right knee Zaid Arnold DO [address] [place] [address] Phone: tel: fax: Referral ID Status Reason Start Date Expiration Date Visits Requested Visits Authorized [id number] Authorized Specialty Services Required 09/06/2024 [id number] Question Answer Referral Priority Within 30 days (routine) Where should this appointment be scheduled? [facility] What body part is the patient being seen for? Thigh/Knee What condition is the patient being seen for? Arthritis including related infection Reason for Visit * Reason Comments Follow Up Encounter Details Date Type Department Care Team (Late st Contact Info) Description 09/06/2024 10:20 AM EDT Office Visit Family [facility] [address] [facility] [place] [id number] Zaid Arnold DO [address] [facility] [place] [address] Dyslipidemia*; Hemiplegia and hemiparesis following cerebral infarction affecting right dominant side ([facility]); COPD exacerbation ([facility]); Type 2 diabetes mellitus with diabetic mononeuropathy, without long-term current use of insulin ([facility]); Memory loss due to medical condition; Chronic pain of right knee; Erectile dysfunction, unspecified erectile dysfunction type; Excoriation (skin-picking) disorder Allergies Active Allergy Reactions Criticality Noted Date Comments Latex Rash 11/17/2017 Powdered latex Tetracycline 12/31/1999 rash documented as of this encounter (statuses as of 09/06/2024) Medications CENTRUM SILVER PO TABS Take by mouth . 0 009 Active TUMS 500 MG PO CHEW Take by mouth . 1 bottle 11 Active ONETOUCH ULTRA SYSTEM W/DEVICE KITIndications:DM type 2, not at goal ([facility]) Use up to four times a day [...] if needed for anxiety 30 Tablet 2 03/04/2 025 Active traMADol HCl 50 MG Oral Tablet (Ultram)Indication s:Bilateral hip pain,Spinal stenosis of lumbar region without neurogenic claudication Take 1 Tablet by mouth every 6 hours as needed for Pain, Severe 60 Tablet Active Clopidogrel Bisulfate 75 MG Oral Tablet (pLAVix)Indication s:Left pontine cerebrovascular accident (HCC) TAKE 1 TABLET BY MOUTH EVERY MORNING 90 Tablet Active Acetaminophen ER 650 MG Oral Tablet Extended Release (Acetaminophen 8 Hour) Take 2 Tablets by mouth 2 times a day. Active Boost Oral Liquid One bottle twice daily Active Sildenafil Citrate 100 MG Oral Tablet (Viagra)Indication s:Erectile dysfunction, unspecified erectile dysfunction type Take 1 Tablet by mouth once for 1 dose. 1-4 hours before intercourse, no more than 1 dose in 24 hours. 10 Tablet 5 025 2024 Active OLANZapine 2.5 MG Oral TabletIndications: Excoriation (skin-picking) disorder Take 1 Tablet by mouth in the morning. 30 Tablet 5 Active Acetaminophen 500 MG Oral Tablet (Tylenol) [...] 2014 - AHI 20.9, desats 29 mins [facility] 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 5 Overview (02/21/2015): Holger Osman MD at [facility] Dyslipidemia 12/22/2014 Angioma 07/27/2013 Type 2 diabetes mellitus wit h hemoglobin A1c goal of less than 7.0% 03/27/2011 Overview (09/25/2015): ICD-10 update of inactive term History of Clostridium difficile infection 11/29 Overview (03/31/2012): Hospitalized at [facility] History of colonic polyps 03/14/2009 Overview (03/18/2009): [...] Sign Reading Time Taken Comments Blood Pressure 144/84 09/06/2024 10:28 AM EDT Pulse 65 09/06/2024 10:28 AM EDT Temperature 36.7 °C (98 °F) 09/06/2024 10:28 AM EDT Respiratory Rate 96 09/06/2024 10:28 AM EDT Oxygen Saturation - - Inhaled Oxygen Concentration - - Weight 76.5 kg (168 lb 9.6 oz) 09/06/2024 10:28 AM EDT Height - - Body Mass Index 26.65 10/07/2023 12:11 PM EDT documented in this [...] documented in this encounter Progress Notes * Zaid Arnold, - 09/06/2024 10:35 AM EDT Subjective: Edi Zaldivar . is a 74 year old male. Chief Complaint Patient presents with Follow Up HPI: PT here for an acute visit. His R knee is a problem according to his . HE already uses a brace. HE is taking Tylenol twice daily. Due for blood work. Multiple episodes of forgetfulness that lead to his temper flaring. HE says he just let's the angergo. He blames his for the anger. He feels like he cannot do anything right at home. His memoryis worse over time. His arms have bruising and picking. Sometimes starts with dogs but he keeps picking. HE has weakness in his R leg from his stroke. HE uses a cane. HE does not use walker. says it is percetpion. PMHx, meds, and allergies reviewed Patient Active Problem List Diagnosis SPINAL STENOSIS-LUMBAR CLASSICAL MIGRAINE WITHOU MENTION OF INTRACTABLE MIGRAINE History of colonic polyps Diverticulosis of colon Type 2 diabetes mellitus with hemoglobin A1c goal of less than 7.0% ([facility]) History of Clostridium difficile infection Angioma Dyslipidemia History of total right hip replacement Left pontine cerebrovascular accident (HCC) CHARLES (obstructive sleep apnea) MEDICATION USE AGREEMENT Abdominal aortic aneurysm (AAA) without rupture ([facility]) Dysthymia Hemiplegia and hemiparesis following cerebral infarction affecting right dominant side (HCC) Emphysema lung (HCC) Type 2 diabetes mellitus with diabetic polyneuropathy ([facility]) Protein-calorie malnutrition (HCC) Type 2 diabetes mellitus with diabetic mononeuropathy, without long-term current use of insulin (HCC) COPD exacerbation ([facility]) Current Outpatient Medications Medication Sig Dispense Refill [...] BY MOUTH ONCE DAILY 90 Capsule 1 Sildenafil Citrate 50 MG Oral Tablet Take 1 Tablet by mouth daily as needed for Erectile Dysfunction. 10 Tablet 5 buPROPion HCl ER (XL) 150 MG Oral [...] BY MOUTH EVERY MORNING 90 Tablet 0 Acetaminophen ER 650 MG Oral Tablet Extended Release (Acetaminophen 8 Hour) Take 2 Tablets by mouth2 times a day. Boost Oral Liquid One bottle twice daily busPIRone HCl 5 MG Oral Tablet (Buspar) Take 1 Tablet by mouth daily at noon. 30 Tablet 5 No current facility-administered medications for this visit. Review of patient's allergies indicates: Allergen Reactions Latex Rash Powdered latex Tetracycline rash OBJECTIVE: BP 144/84 | Pulse 65 | Temp 98 °F (36.7 °C) (Tympanic) | Resp 96 | Wt 168 lb 9.6 oz (76.5 kg) | BMI 26.65 kg/m² | BSA 1.9 m² Estimated body mass index is 26.65 kg/m² as calculated from the following: Height as of 10/07/23: 5' 6.69" (1.694 m). Weight as of this encounter: 168 lb 9.6 oz (76.5 kg). BP Readings from Last 3 Encounters: 09/06/24 144/84 02/09/24 122/72 10/19/23 136/68 Wt Readings from Last 3 Encounters: 09/06/24 168 lb 9.6 oz (76.5 kg) 02/09/24 164 lb 3.2 oz (74.5 kg) 10/19/23 159 lb 12.8 oz (72.5 kg) ROS: Negative except for above PHYSICAL EXAM: General: alert, healthy, and no distress Head: Normocephalic, No masses, lesions, tenderness or abnormalities Extremities: less than 2 second capillary refill, and scabs with excoriation over them on his B/L arms ASSESSMENT/Plan Dyslipidemia (Primary) - COMPREHENSIVE METABOLIC PANEL; Future; Expected date: 09/06/2024 - LIPID PANEL WITH DIRECT LDL IF TG IS HIGH; Future; Expected date: 09/06/2024 Hemiplegia and hemiparesis following cerebral infarction affecting right dominant side (HCC) - ADULT NEUROLOGY REFERRAL OP COPD exacerbation ([facility]) Type 2 diabetes mellitus with diabetic mononeuropathy, without long-term current use of insulin ([facility]) - HEMOGLOBIN A1C; Future; Expected date: 09/06/2024 - ALBUMIN / CREATININE RATIO, URINE; Future; Expected date: 09/06/2024 Memory loss due to medical condition - ADULT NEUROLOGY REFERRAL OP Chronic pain of right knee - ORTHOPAEDICS REFERRAL OP Erectile dysfunction, unspecified erectile dysfunction type - Sildenafil Citrate 100 MG Oral Tablet (Viagra); Take 1 Tablet by mouth once for 1 dose. 1-4 hoursbefore intercourse, no more than 1 dose in 24 hours. Excoriation (skin-picking) disorder - OLANZapine 2.5 MG Oral Tablet; Take 1 Tablet by mouth in the morning. I spent a total of 30 minutes on the date of service in preparation, delivery, and documentation ofthe care provided to this patient, excluding any time spent on the performance of any procedure or separately billable services. Pt's wrote out a list of examples of times Zeferino misremembers or forgets something. She sees itas memory loss. HE thinks he is right about it. No acute change to suggest a recent stroke. Will get in to neurology to discuss possible medication. Zeferino admits to his temper flaring but I cannot convince him that it shouldn't. Consider this and his excoriation will try Zyprexa. He is already on anSSRI and ativan in terms of other options indicated for this. The above was discussed and understanding was expressed. Zaid Arnold DO documented in this encounter Nursing Notes * Rose Taylor LPN - 09/06/2024 10:21 AM EDT Patient here to discuss a few concerns. Having pain in his right knee and thigh area that's been ongoing. He's wearing a brace on the right knee. has several questions: - should Zeferino be taking 325 mg ASA daily? - memory issues - temper flares - should he start an alzheimer's medication - right sided weakness, right leg in particular doesn't always work well. Sometimes he drags his foot. - forgetfulness -higher dose of Viagra - knee replacement -lack of understanding and remembering - falling a lot and not always telling Tamica - can he wear disposable underwear documented in this encounter Plan of Treatment Upcoming Encounters Date Type Department Care Team (Late st Contact Info) Description 09/07/2024 8:30 AM EDT Office Visit Orthopaedics [facility] [address] [place] [phone] Kayden Coppola DO [address] [place] [phone] 09/13/2024 11:20 AM EDT Office Visit Neurology [facility] [address] [place] [address] Mariangel Holm MD [address] [place] [address] 04/28/2025 4:00 PM EST Office Visit Family Practice [facility] [address] [place] [address] Zaid Arnold, [address] [facility] [place] [address] Pending Results Name Type Priority Associated Diagnoses Date /Time LIPID PANEL WITH DIRECT LDL IF TG IS HIGH Lab Routine Dyslipidemia 09/06/2024 11:14 AM EDT Scheduled Orders Name Type Priority Associated Diagnoses Orde r Schedule LIPID PANEL WITH DIRECT LDL IF TG IS HIGH Lab Routine Dyslipidemia Expected: 09/06/2024, Expires: 09/06/2025 Scheduled Procedures Name Priority Associated Diagnoses Date/Ti me COLONOSCOPY FLEXIBLE PROXIMAL DIAGNOSTIC Recall History of colon polyps Scheduled Referrals Name Type Priority Associated Diagnoses Orde r Schedule ORTHOPAEDICS REFERRAL OP Referral Within 30 days (routine) Chronic pain of right knee Ordered: 09/06/2024 ADULT NEUROLOGY REFERRAL OP Referral Within 30 days (routine) Hemiplegia and hemiparesis following cerebral infarction affecting right dominant side (HCC) Memory loss due to medical condition Ordered: 09/06/2024 Health Maintenance Due Date Last Done Comments [...] this encounter Medical Devices Implanted Type Area Career Development Engineer Device Identifier Shelf Expiration Date Model / Serial / Lot Graft Bifur [id number] - [id number] - [id number] Implanted:Qty: 1 on 07/20/2017 by Holger Fair MD at [facility] N/A: Aorta [employer] : VASCULAR 03/31/2019 [id number] / [id number] / Limb Contralat [id number] - [id number] - [id number] Implanted:Qty: 1 on 07/20/2017 by Holger Fair MD at OR [facility] Left: Aorta [employer] : VASCULAR 04/27/2019 [id number] / [id number] / Aequalis Perform Cortiloc Pegged Glenoid Implanted:Qty: 1 on 11/17/2017 by Hong Becerra DO at OR [facility] Right: Shoulder [employer] 08/09/2020 [id number] / [id number] / Cement Bone Simplex Hv & G - [id number] Implanted:Qty: 1 on 11/17/2017 by Hong Becerra DO at OR [facility] Right: Shoulder JARED : ORTHOPAEDICS 12/29/2018 [id number] / / [id number] Y Flex Shoulder System Aequalis Humeral Head 52mm 19mm Implanted:Qty: 1 on 11/17/2017 by Hong Becerra DO at OR [facility] Right: Shoulder [employer] 06/10/2022 [id number] / [id number] / Standard Ptc Humeral Stem Implanted:Qty: 1 on 11/17/2017 by Hong Becerra DO at OR [facility] Right: Shoulder [employer] 04/10/2021 [id number] / [id number] / [place] [employer] S[employer]ocomposite - [id number] Implanted:Qty: 2 on 11/17/2017 by Hong Becerra DO at OR [facility] Right: Shoulder [employer] 10/29/2018 [id number] C / / [id number] Sut [place] Biocomp 4.75mm Min5 - [id number] Implanted:Qty: 1 on 11/17/2017 by Hong Becerra DO at OR [facility] Right: Shoulder [employer] 05/31/[id number] / / [id number] documented as of this encounter Results * (ABNORMAL) COMPREHENSIVE METABOLIC PANEL (09/06/2024 11:14 AM EDT) BUN 24(H) 6 - 20 mg/dL 09/06/2024 12:41 PM EDT [facility]- CREATININE 0.9 0.6 - 1.2 mg/dL 09/06/2024 12:41 PM EDT [facility]- EGFR >90 >=60 mL/min 09/06/2024 12:41 PM EDT [facility]- Comment:eGFR is calculated b ased on the CKD-EPI 2020 equation. SODIUM 142 135 - 146 mmol/L 09/06/2024 12:41 PM EDT [facility]- POTASSIUM 4.6 3.5 - 5.1 mmol/L 09/06/2024 12:41 PM EDT [facility] CHLORIDE 105 98 - 107 mmol/L 09/06/2024 12:41 PM EDT [address] CO2 28 22 - 32 mmol/L 09/06/2024 12:41 PM EDT [facility] ANION GAP 9 7 - 15 mmol/L 09/06/2024 12:41 PM EDT [place] [address] GLUCOSE 101 70 - 120 mg/dL 09/06/2024 12:41 PM EDT [place] [address] Albumin 4.2 3.8 - 5.0 g/dL 09/06/2024 12:41 PM EDT [place] [address] AST 28 10 - 50 U/L 09/06/2024 12:41 PM EDT [place] [address] Alkaline Phosphatase 108 35 - 130 U/L 09/06/2024 12:41 PM EDT [place] [address] Bilirubin, Total 0.5 <=1.2 mg/dL 09/06/2024 12:41 PM EDT [place] [address] CALCIUM 9.9 8.4 - 10.2 mg/dL 09/06/2024 12:41 PM EDT [place] [address] Protein 7.2 6.0 - 8.3 g/dL 09/06/2024 12:41 PM EDT [place] [address] ALT 19 10 - 50 U/L 09/06/2024 12:41 PM EDT [facility] Blood Venous blood specimen / Unknown Venipuncture / Unknown 09/06/2024 11:14 AM EDT 09/06/2024 11:14 AM EDT us Zaid Arnold DO LAB BLOOD ORDERABLES Final Result [place] [address] [place] [address] documented in this encounter Visit Diagnoses Diagnosis Dyslipidemia- Primary Other and unspecified hyperlipidemia Hemiplegia and hemiparesis following cerebral infarction affecting right dominant side (HCC) COPD exacerbation (HCC) Obstructive chronic bronchitis with exacerbation Type 2 diabetes mellitus with diabetic mononeuropathy, without long-term current use of insulin (HCC) Memory loss due to medical condition Memory loss Chronic pain of right knee Erectile dysfunction, unspecified erectile dysfunction type Excoriation (skin-picking) disorder documented in this encounter Advance Directives Documents on File Type Date Recorded Patient Head Sugar Reprocess Operator Expl anation Advance Directives and Living Will 04/07/2005 Power of Carbon Accountant 04/07/2005 * Full Code (Latest Code Status [...] 7:34 AM 04/07/2005 8:34 AM Care Teams Brick Offbearer Relationship Specialty Start Date End Date Zaid Arnold DO [address] [place] [address] PCP - General Family Medicine 11/14/16 documented as of this encounter
--- OUTSIDE RECORDS SUMMARY | 2024-09-30 16:26 | External Medical Summary | Summary of Care ---
Author Name Unknown Organization [facility] Address [address] [place] [address] Phone [phone] Care Team Providers Care Resort Keeper Name Role Phone Zaid Arnold DO Primary Care Provider [phone] Reason for Referral * Evaluate & Treat - Unlimited Visits (Within 10 days (routine)) - Authorized Specialty Diagnoses / Procedures Referred By Leroy nazario Referred To Contact Physical Therapy / Physical Medicine And Rehab Diagnoses History of hip replacement, total, bilateral Primary osteoarthritis of right knee Generalized weakness Kayden Coppola DO [address] [place] [address] Phone: tel: fax: Referral ID Status Reason Start Date Expiration Date Visits Requested Visits Authorized [id number] Authorized Specialty Services Required 09/07/[phone] Question Answer Referral Priority Within 10 days (routine) Where should this appointment be scheduled? External Comments Treat for strength and range of motion Reason for Visit * Reason Comments NEW PATIENT R knee * Evaluate & Treat - Unlimited Visits (Within 30 days (routine)) - Authorized Specialty Diagnoses / Procedures Referred By Leroy nazario Referred To Contact Orthopaedic Surgery / Orthopedics Diagnoses Chronic pain of right knee Zaid Arnold DO [address] [place] [address] Phone: tel: fax: Referral ID Status Reason Start Date Expiration Date Visits Requested Visits Authorized [id number] Authorized Specialty Services Required 09/06/[phone] Encounter Details Date Type Department Care Team (Latest Contact Info) Description 09/07/2024 8:30 AM EDT Office Visit Orthopaedics [facility] [address] [place] [phone] Kayden Coppola, [address] [place] [phone] History of hip replacement, total, bilateral*; Primary osteoarthritis of right knee; Generalized weakness Allergies Active Allergy Reactions Criticality Noted Date Comments Latex Rash 11/17/2017 Powdered latex Tetracycline 12/31/1999 rash documented as of this encounter (statuses as of 09/07/2024) Medications CENTRUM SILVER PO TABS Take by [...] the morning. 30 Tablet 5 5 Active Hospital, Clinic, or Other Facility Administered Medication Ordered Dose Route Frequency Start Date End Date Status lidocaine 1% 1 mL - triamcinolone acetonide 40 mg/mL 1 mL inj 2 mLIndications:Primary osteoarthritis of right knee 2 mL IJ ONCE 09/07/2024 09/07/2024 Ended documented as of this encounter (statuses as of 09/07/2024) Active Problems Problem Noted Date Diagnosed Date [...] 5 Overview (02/21/2015): Holger Osman MD at [facility] Dyslipidemia 12/22/2014 Angioma 07/27/2013 Type 2 diabetes mellitus wit h hemoglobin A1c goal of less than 7.0% 03/27/2011 Overview (09/25/2015): ICD-10 update of inactive term History of Clostridium difficile infection 11/29 Overview (03/31/2012): Hospitalized at [facility] History of colonic polyps 03/14/2009 Overview (03/18/2009): 5 mm ceacal adenoma, repeat 3-5 yers SPINAL STENOSIS-LUMBAR 01/25/2001 CLASSICAL MIGRAINE WITHOU MENTION OF INTRACTABLE MIGRAINE Diverticulosis of colon documented as of this encounter (statuses as of 09/07/2024) Resolved Problems Problem Noted Date Diagnosed Date [...] as of this encounter (statuses as of 09/07/2024) Immunizations Name Administration Dates Next Due COVID-19 [...] No 09/05/2024 Does the household have a [facility] source of income? (Household - for [...] documented in this encounter Progress Notes * Kayden Coppola DO - 09/07/2024 8:30 AM EDT Edi Zaldivar . [id number] Edi Zaldivar Sr. is a 74 year old male who presents for consultation to [facility] for right knee injury/pain. Consult requested by Zaid Arnold DO. Edi Zaldivar Sr. is here with his/her . Date of Injury: No injury. Pain since at least 2023 possibly longer HISTORY History - increasing right knee pain. Patient has also had a few falls as well since last x-rays. He does use a single-point cane Patient was seen by PCP on 09/06/2024 that note was reviewed Modifying factors: activity exacerbates Associated symptoms: Swelling - negative , locking - negative, Knee giving way - positive Patient has tried tylenol, ice, and bracing: OTC Physical Therapy: No Previous knee surgery: No He has had a right and left hip replacement by Dr. Osman REVIEW OF SYSTEMS Constitutional: No change in weight, No fatigue, and No fevers, sweats, or chills. He does report some generalized right lower extremity weakness. Past Medical History: Diagnosis Date Benign neoplasm of colon 03/14/09 adenomatous/repeat colonoscopy in 5 yrs Colitis Degeneration of lumbosacral intervertebral disc Lumbar Spine DJD Diabetes mellitus (HCC) Diverticulosis of colon DM type 2, not at goal (HCC) 2008 Dyslipidemia 12/22/2014 Encounter for ophthalmic examination and evaluation 05/07/2009 no diabetic retinopathy, GREG Lantigua MD History of total right hip replacement 02/13/2015 Holger Osman MD at [facility] Migraine with aura Personal history of colonic polyps 03/14/2009 5 mm ceacal adenoma, repeat 5 yers Patient Active Problem List Diagnosis SPINAL STENOSIS-LUMBAR CLASSICAL MIGRAINE WITHOU MENTION OF INTRACTABLE MIGRAINE History of colonic polyps Diverticulosis of colon Type 2 diabetes mellitus with hemoglobin A1c goal of less than 7.0% (HCC) History of Clostridium difficile infection Angioma Dyslipidemia History of total right hip replacement Left pontine cerebrovascular accident (HCC) CHARLES (obstructive sleep apnea) MEDICATION USE AGREEMENT Abdominal aortic aneurysm (AAA) without rupture (HCC) Dysthymia Hemiplegia and hemiparesis following cerebral infarction affecting right dominant side (HCC) Emphysema lung (HCC) Type 2 diabetes mellitus with diabetic polyneuropathy (HCC) Protein-calorie malnutrition (HCC) Type 2 diabetes mellitus with diabetic mononeuropathy, without long-term current use of insulin (HCC) COPD exacerbation (HCC) Excoriation (skin-picking) disorder Family History Problem Relation Name Age of Onset Other (AAA) Father Cancer Mother Lung age 66 CVA Lung Disorder Father COPD Diabetes Brother No Past Hx Sister No Past Hx Sister Heart Disorder Brother [place] age 52 No Past Hx Son Other (Fibromyalgia) Daughter Social History Socioeconomic History Marital status: Spouse name: Juana Number of children: 2 Years of education: 12 Highest education level: Not on file Occupational History Occupation: retired, disability for back pain, surgery Employer: [email or web address] Tobacco Use Smoking status: Former Current packs/day: [...] Self-Exams No Social History Narrative Born in [place], raised in [place], [place], graduate from [employer], 1970 No other schooling, in 10 years, retired at 1980 A year in [employer], in combat, No alcohol, former smoker, 1.5-2 PPD, stopped 03/11/2005 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 1-4 hours before intercourse, no more than 1 dose in 24 hours. 10 Tablet 5 OLANZapine 2.5 MG Oral Tablet Take 1 Tablet by mouth in the morning. 30 Tablet 5 No current facility-administered medications for this visit. Lab Results Component Value Date/Time HEMOGLOBIN A1C - [facility] 5.7 (H) 09/23/2023 04:02 PM HEMOGLOBIN A1C - [facility] 5.8 (H) 03/23/2023 11:56 AM HEMOGLOBIN A1C - [facility] 5.9 (H) 04/29/2022 04:27 PM HEMOGLOBIN A1C - [facility] 5.5 10/07/2019 08:54 AM HEMOGLOBIN A1C - [facility] 5.8 (H) 04/06/2019 08:46 AM HEMOGLOBIN A1C - [facility] 6.1 (H) 05/04/2018 03:53 PM PHYSICAL EXAM General: in no acute distress Mood and Affect: normal Gait and Station: moderately antalgic, and somewhat unsteady, use a single-point cane Peripheral pulses: normal in affected extremity (s) Skin examination: normal on affect extremity (s) Sensation: normal on affected extremity (s) KNEE EXAM Alignment: normal Bilateral Effusion: 1+ Right Palpation: tenderness to palpation at medial joint line on the right ROM R - Flexion - 120 degrees | Extension - 0 degrees L - Flexion - 120 degrees | Extension - 0 degrees R - Strength - Extension - 4/5 | Flexion - 4/5 L - Strength - Extension - 5/5 | Flexion - 5/5 Quadriceps tone is Poor Ligament Tests/Stability ACL, PCL, MCL, LCL grossly stable Meniscus Tests Alannah - negative Bilateral Popliteal mass - negative Bilateral Radiology - I have personally reviewed the films done TODAY and compared to 02/10/24 : Right knee X-ray shows shows no fracture and mild medial joint space arthritis, subtle effusion ASSESSMENT AND PLAN Concerned about patient has generalized weakness. reports he is followed by his PCP for neurologic concerns. Reviewed formal physical therapy and they agree. Additionally we will do ultrasound-guided intra-articular steroid injection. And follow up in approximately 6 weeks. If no significant pain relief from steroid we will do prior authorization for hyaluronic acids. Please see procedure note. Monitor blood sugar. 1) History of hip replacement, total, bilateral (Primary) - PHYSICAL THERAPY REFERRAL OP Primary osteoarthritis of right knee - PHYSICAL THERAPY REFERRAL OP - POINT OF CARE US MAJOR JOINT INJECTION, ORTHO - lidocaine 1% 1 mL - triamcinolone acetonide 40 mg/mL 1 mL inj 2 mL Generalized weakness - PHYSICAL THERAPY REFERRAL OP Other orders - XR KNEE 4 OR MORE VIEWS Follow-up: Return in about 6 weeks (around 10/19/2024). | Check-out note: 30 minutes follow up rightknee after physical therapy consider SCHAEFFER injections Kayden Coppola, Primary Care Sports Medicine Orthopaedics [facility] [address] [place] [phone] This chart was completed in part utilizing [employer] Speech Voice Recognition Software. Grammatical errors, random word insertions, pronoun errors, and incomplete sentences are an occasional consequence of this system due to software limitations, ambient noise, and hardware issues. Any formal questions or concerns about the content, text, or information contained within the body of this dictation should be directly addressed to the provider for clarification. PROCEDURE NOTE: KNEE INJECTION - ULTRASOUND Laterality: Right Time out: Prior to injection, a time out was called to confirm the administration of appropriate medicine, patient name, procedure and confirm to the best of our ability and knowledge the presence of any necessary risks and benefits. Patient verbalized understanding. Ultrasound utilized to guide injection. During the procedure, the needle was visualized in plane and was advanced with continuous ultrasound guidance to the appropriate anatomical landmark as described in the procedure. Ultrasound required due to high risk for complications without ultrasound guidance (risk for neurovascular damage) Sterile technique applied using gloves, chlorhexadine, and alcohol swabs. Ethyl chloride spray for local anesthetic. Knee injected at superior-lateral recess 1.5 inch, 22 gauge needle. Injected with 1 mL Lidocaine 1%- 1 mL Triamcinolone Acetonide 40 mg/mL >> inject 2 mL. Patient tolerated procedure with no significant bleeding or adverse reaction. Patient instructed to call or return to clinic for fever, warmth, unusual redness at injection sitefor potential infection. Patient also advised regarding post-procedural pain. Kayden Coppola DO Sports Medicine Primary Care [facility]opa[facility] [address] [place] [address] documented in this encounter Nursing Notes * Katty Pratt ATC - 09/07/2024 8:19 AM EDT Pt reports R knee p! That has been getting progressively worse for the last year. Pt had a stroke in 2018 and R side has become weaker and causing him increased p! Since then. Pt has fallen a few times in the last several months. Would like to discuss options. Here with his . Has some memory recall difficulties. documented in this encounter Plan of Treatment Upcoming Encounters Date Type Department Care Team (Late st Contact Info) Description 09/13/2024 11:20 AM EDT Office Visit Neurology [facility] [address] [place] [address] Mariangel Holm MD [address] [facility] [place] [address] 10/19/2024 9:30 AM EDT Office Visit Orthopaedics [facility] [address] [place] [phone] Kayden Coppola DO [address] [place] [phone] 04/28/2025 4:00 PM EST Office Visit Family Practice [facility] [address] [place] [address] Zaid Arnold DO [address] [place] [address] Pending Results Name Type Priority Associated Diagnoses Date /Time XR KNEE 4 OR MORE VIEWS Medical Imaging Routine 09/07/2024 8:35 AM EDT Scheduled Orders Name Type Priority Associated Diagnoses Orde r Schedule POINT OF CARE US MAJOR JOINT INJECTION, ORTHO Medical Imaging Routine Primary osteoarthritis of right knee Ordered: 09/07/2024 Scheduled Procedures Name Priority Associated Diagnoses Date/Ti me COLONOSCOPY FLEXIBLE PROXIMAL DIAGNOSTIC Recall History of colon polyps Scheduled Referrals Name Type Priority Associated Diagnoses Orde r Schedule PHYSICAL THERAPY REFERRAL OP Referral Within 10 days (routine) History of hip replacement, total, bilateral Primary osteoarthritis of right knee Generalized weakness Ordered: 09/07/2024 Health Maintenance Due Date Last Done Comments [...] this encounter Medical Devices Implanted Type Area Lift Truck Operator Device Identifier Shelf Expiration Date Model / Serial / Lot Graft Bifur [id number] - [id number] - [id number] Implanted:Qty: 1 on 07/20/2017 [place] Fair [place] [facility] [place]: Aorta [employer] : VASCULAR 03/31/2019 [id number] / [id number] / Limb Contralat [id number] - [id number] - [id number] Implanted:Qty: 1 on 07/20/2017 by Holger Fair MD [place] [facility] [place]: Aorta [employer] : VASCULAR 04/27/2019 [id number] / [id number] / Aequalis Perform Cortiloc Pegged Glenoid Implanted:Qty: 1 on 11/17/2017 by Hong Becerra DO at OR [facility] Right: Shoulder [employer] 08/09/2020 [id number] / [id number] / Cement Bone Simplex Hv & G - [id number] Implanted:Qty: 1 on 11/17/2017 by Hong Becerra DO at OR [facility] Right: Shoulder JARED : ORTHOPAEDICS 12/29/2018 6195-1-01 [id number] Y Flex Shoulder System Aequalis Humeral Head 52mm 19mm Implanted:Qty: 1 on 11/17/2017 by Hong Becerra DO at OR [facility] Right: Shoulder [employer] 06/10/2022 [id number] / [id number] / Standard Ptc Humeral Stem Implanted:Qty: 1 on 11/17/2017 by Hong Becerra DO at OR [facility] Right: Shoulder [employer] 04/10/2021 [id number] / [id number] / [place] Suture Biocomposite - [id number] Implanted:Qty: 2 on 11/17/2017 by Hong Becerra, at OR [facility] Right: Shoulder [employer] 10/29/2018 [id number]-2324BC C / / [id number] Sut [place] Biocomp 4.75mm Min5 - [id number] Implanted:Qty: 1 on 11/17/2017 by Hong Becerra, at OR [facility] Right: Shoulder [employer] 05/31/[address] / / [id number] documented as of this encounter Visit Diagnoses Diagnosis History of hip replacement, total, bilateral- Primary Primary osteoarthritis of right knee Primary localized osteoarthrosis, lower leg Generalized weakness Other malaise and fatigue documented in this encounter Administered Medications Inactive Administered Medications - up to 3 most recent administrations Medication Order MAR Action Action Date Dose Rate Site lidocaine 1% 1 mL - triamcinolone acetonide 40 mg/mL 1 mL inj 2 mL 2 mL, Injection, ONCE, On Thu09/07/24 at 0930, For 1 dose, Lidocaine 1% 1mL Triamcinolone Acetonide 40 mg/mL 1 mL (Final concentration = 20 mg/mL) REFRIGERATE and SHAKE WELLIndications:Primary osteoarthritis of right knee Given 09/07/2024 8:56 AM EDT 2 mL Knee Right documented in this encounter Advance Directives Documents on File Type Date Recorded Patient Advertising Clerk Expl anation Advance Directives and Living Will 04/07/2005 Power of Outpatient Psychiatrist 04/07/2005 * Full Code (Latest Code Status [...] 7:34 AM 04/07/2005 8:34 AM Care Teams Resort Keeper Relationship Specialty Start Date End Date Zaid Arnold DO [address] [place] [address] PCP - General Family Medicine 11/14/16 documented as of this encounter"
--- OUTSIDE RECORDS SUMMARY | 2024-09-30 16:26 | External Medical Summary | Summary of Care ---
Author Name Unknown Organization [facility] Address [address] [place] [address] Phone [phone] Care Team Providers Care Machine Heddle Cleaner Name Role Phone Zaid Arnold DO Primary Care Provider [phone] Reason for Referral * Evaluate & Treat - Unlimited Visits (Within 10 days (routine)) - Authorized Specialty Diagnoses / Procedures Referred By Leroy nazario Referred To Contact Physical Therapy / Physical Medicine And Rehab Diagnoses History of hip replacement, total, bilateral Primary osteoarthritis of right knee Generalized weakness Kayden Coppola DO [address] [place] [address] Phone: tel: fax: Referral ID Status Reason Start Date Expiration Date Visits Requested Visits Authorized [id number] Authorized Specialty Services Required 09/07/[phone] Question Answer Referral Priority Within 10 [...] right knee Zaid Arnold DO [address] [place] [address] Phone: tel: fax: Referral ID Status Reason Start Date Expiration Date Visits Requested Visits Authorized [id number] Authorized Specialty Services Required 09/06/[phone] Encounter Details Date Type Department Care Team (Latest Contact Info) Description 09/07/2024 8:30 AM EDT Office Visit Orthopaedics [facility] [address] [place] [phone] Kayden Coppola, [address] [place] [phone] History of hip replacement, total, bilateral*; Primary [...] Overview (02/21/2015): Holger Osman MD at [facility] Dyslipidemia 12/22/2014 Angioma 07/27/2013 Type 2 diabetes mellitus wit h hemoglobin A1c goal of less than 7.0% 03/27/2011 Overview (09/25/2015): ICD-10 update of inactive term History of Clostridium difficile infection 11/29 Overview (03/31/2012): Hospitalized at [facility] History of colonic polyps 03/14/2009 Overview (03/18/2009): [...] No 09/05/2024 Does the household have a [facility] source of income? (Household - for [...] 09/07/2024 8:30 AM EDT Edi Zaldivar . [id number] Edi Zaldivar Sr. is a 74 year old male who presents for consultation to [facility] for right knee injury/pain. Consult requested by [...] hip replacement 02/13/2015 Holger Osman MD at [facility] Migraine with aura Personal history of colonic [...] retired, disability for back pain, surgery Employer: [employer] Tobacco Use Smoking status: Former Current packs/day: [...] Self-Exams No Social History Narrative Born in [place], raised in [place], [place], graduate from [employer] [employer] [employer], 1970 No other schooling, in 10 years, retired at 1980 A year in [employer], in combat, No alcohol, former smoker, 1.5-2 PPD, stopped 03/11/2005 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 Grammatical errors, random [...] Coppola DO Sports Medicine Primary Care Orthopaedics [facility] [address] [place] [address] documented in this encounter Nursing Notes * [...] 09/13/2024 11:20 AM EDT Office Visit Neurology [facility] [address] [place] [address] Mariangel Holm MD [address] [facility] [place] [address] 10/19/2024 9:30 AM EDT Office Visit Orthopaedics [facility] [address] [place] [phone] Kayden Coppola DO [address] [place] [phone] 04/28/2025 4:00 PM EST Office Visit Family Practice [facility] [address] [place] [address] Zaid Arnold DO [address] [place] [address] Pending Results Name Type Priority Associated Diagnoses [...] this encounter Medical Devices Implanted Type Area Educational Coordinator Device Identifier Shelf Expiration Date Model / Serial / Lot Graft Bifur [id number] - [id number] - [id number] Implanted:Qty: 1 on 07/20/2017 [place] [facility] [place]: Aorta [employer] : VASCULAR 03/31/2019 [id number] 166E / [id number] / Limb Contralat [id number] - [id number] - [id number] Implanted:Qty: 1 on 07/20/2017 by [place]ger [place] [facility] [place]: Aorta [employer] : VASCULAR 04/27/2019 [id number] / [id number] / Aequalis Perform Cortiloc Pegged Glenoid Implanted:Qty: 1 on 11/17/2017 by Hong Becerra DO at OR [facility] Right: Shoulder [employer] 08/09/2020 [id number] / [id number] / Cement Bone Simplex Hv & G - [id number] Implanted:Qty: 1 on 11/17/2017 by Hong Becerra DO at OR [facility] Right: Shoulder JARED : ORTHOPAEDICS 12/29/2018 6195-1-01 [id number] Y Flex Shoulder System Aequalis Humeral Head 52mm 19mm Implanted:Qty: 1 on 11/17/2017 by Hong Becerra DO at OR [facility] Right: Shoulder [employer] 06/10/2022 [id number] / [id number] / Standard Ptc Humeral Stem Implanted:Qty: 1 on 11/17/2017 by Hong Becerra DO at OR [facility] Right: Shoulder [employer] 04/10/2021 [id number] / [id number] / [place] Suture Biocomposite - [id number] Implanted:Qty: 2 on 11/17/2017 by Hong Becerra, at OR [facility] Right: Shoulder [employer] 10/29/2018 AR-2324BC C / / [id number] Sut [place] Biocomp 4.75mm Min5 - [id number] Implanted:Qty: 1 on 11/17/2017 by Hong Becerra, at OR [facility] Right: Shoulder [employer] 05/31/[address] / / [id number] documented as of this encounter Visit Diagnoses [...] Documents on File Type Date Recorded Patient Radiation Therapist Expl anation Advance Directives and Living Will 04/07/2005 Power of Steeple Jack 04/07/2005 * Full Code (Latest Code Status [...] 7:34 AM 04/07/2005 8:34 AM Care Teams Machine Heddle Cleaner Relationship Specialty Start Date End Date Zaid Arnold DO [address] [place] [address] PCP - General Family Medicine 11/14/16 documented as of this encounter"
--- OUTSIDE RECORDS SUMMARY | 2024-09-30 16:26 | External Medical Summary | Summary of Care ---
Author Name Unknown Organization [facility] Address [address] [place] [address] Phone [phone] Care Team Providers Care Logistics Specialist Name Role Phone Zaid Arnold DO Primary Care Provider [phone] Reason for Referral * Evaluate & Treat - Unlimited Visits (Within 10 days (routine)) - Authorized Specialty Diagnoses / Procedures Referred By Leroy nazario Referred To Contact Physical Therapy / Physical Medicine And Rehab Diagnoses History of hip replacement, total, bilateral Primary osteoarthritis of right knee Generalized weakness Kayden Coppola DO [address] [place] [address] Phone: tel: fax: Referral ID Status Reason Start Date Expiration Date Visits Requested Visits Authorized [id number] Authorized Specialty Services Required 09/07/[phone] Question Answer Referral Priority Within 10 [...] right knee Zaid Arnold DO [address] [place] [address] Phone: tel: fax: Referral ID Status Reason Start Date Expiration Date Visits Requested Visits Authorized [id number] Authorized Specialty Services Required 09/06/[phone] Encounter Details Date Type Department Care Team (Latest Contact Info) Description 09/07/2024 8:30 AM EDT Office Visit Orthopaedics [facility] [address] [place] [phone] Kayden Coppola, [address] [place] [phone] History of hip replacement, total, bilateral*; Primary [...] 5 Overview (02/21/2015): Holger Osman MD at [facility] Dyslipidemia 12/22/2014 Angioma 07/27/2013 Type 2 diabetes mellitus wit h hemoglobin A1c goal of less than 7.0% 03/27/2011 Overview (09/25/2015): ICD-10 update of inactive term History of Clostridium difficile infection 11/29 Overview (03/31/2012): Hospitalized at [facility] History of colonic polyps 03/14/2009 [...] 09/05/2024 Does the household have a [facility] source of income? (Household - for [...] 09/07/2024 8:30 AM EDT Edi Zaldivar . [id number] Edi Zaldivar Sr. is a 74 year old male who presents for consultation to [facility] for right knee injury/pain. Consult requested by [...] hip replacement 02/13/2015 Holger Osman MD at [facility] Migraine with aura Personal history of [...] No Past Hx Sister Heart Disorder Brother [place] age 52 No Past Hx Son Other (Fibromyalgia) Daughter Social History Socioeconomic History Marital status: Spouse name: Juana Number of children: 2 Years of education: 12 Highest education level: Not on file Occupational History Occupation: retired, disability for back pain, surgery Employer: [employer] Tobacco Use Smoking status: Former Current packs/day: [...] Self-Exams No Social History Narrative Born in [place], raised in [place], [place], graduate from [employer], 1970 No other schooling, in 10 years, retired at [address] year in 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 Grammatical errors, random [...] Coppola DO Sports Medicine Primary Care Orthopaedics [facility] [address] [place] [phone] documented in this encounter Nursing Notes * [...] 09/13/2024 11:20 AM EDT Office Visit Neurology [facility] [address] [place] [address] Mariangel Holm MD [address] [facility] [place] [address] 10/19/2024 9:30 AM EDT Office Visit Orthopaedics [facility] [address] [place] [phone] Kayden Coppola DO [address] [place] [phone] 04/28/2025 4:00 PM EST Office Visit Family Practice [facility] [address] [place] [address] Zaid Arnold DO [address] [place] [address] Pending Results Name Type Priority Associated Diagnoses [...] this encounter Medical Devices Implanted Type Area Thermostatic Controls Supervisor Device Identifier Shelf Expiration Date Model / Serial / Lot Graft Bifur [id number] - [id number] - [id number] Implanted:Qty: 1 on 07/20/2017 by Holger Fair MD at OR [facility] N/A: Aorta [employer] : VASCULAR 03/31/2019 [id number] / [id number] / Limb Contralat [id number] - [id number] - [id number] Implanted:Qty: 1 on 07/20/2017 by Holger Fair MD at OR [facility] Left: Aorta [employer] : VASCULAR 04/27/2019 [id number] / [id number] / Aequalis Perform Cortiloc Pegged Glenoid Implanted:Qty: 1 on 11/17/2017 by Hong Becerra DO at OR [facility] Right: Shoulder [employer] 08/09/2020 [id number] / [id number] / Cement Bone Simplex Hv & G - [id number] Implanted:Qty: 1 on 11/17/2017 by Hong Becerra DO at OR [facility] Right: Shoulder JARED : ORTHOPAEDICS 12/29/2018 6195-1-01 [id number] Y Flex Shoulder System Aequalis Humeral Head 52mm 19mm Implanted:Qty: 1 on 11/17/2017 by Hong Becerra DO at OR [facility] Right: Shoulder [employer] 06/10/2022 [id number] / [id number] / Standard Ptc Humeral Stem Implanted:Qty: 1 on 11/17/2017 by Hong Becerra DO at OR [facility] Right: Shoulder [employer] 04/10/2021 [id number] / [id number] / Argos Suture Biocomposite - [id number] Implanted:Qty: 2 on 11/17/2017 by Hong Becerra, at OR [facility] Right: Shoulder [employer] 10/29/2018 [id number] C / / [id number] Sut Argos Biocomp 4.75mm Min5 - [id number] Implanted:Qty: 1 on 11/17/2017 by Hong Becerra, at OR [facility] Right: Shoulder [employer] 05/31/[address] / / [id number] documented as of this encounter Visit Diagnoses [...] Documents on File Type Date Recorded Patient Manager Order Expl anation Advance Directives and Living Will 04/07/2005 Power of Branch Associate Teller 04/07/2005 * Full Code (Latest Code Status [...] 7:34 AM 04/07/2005 8:34 AM Care Teams Logistics Specialist Relationship Specialty Start Date End Date Zaid Arnold DO [address] [place] [address] PCP - General Family Medicine 11/14/16 documented as of this encounter"
--- OUTSIDE RECORDS SUMMARY | 2024-09-30 16:26 | External Medical Summary ---
Author Name Unknown Address Unknown Organization [id number][place] [place] [address] [facility] [address] Laboratory Report Ordering Provider Test Date Status NICOLASA BRANTLEYR 09/06/2024 11:14:08 Final Observation Date Value Abnormality Reference (Units ) Status Triglyceride 09/06/2024 11:14:08 124 <=174 ( mg/dL) Final Triglyceride Reference Range s (mg/dL):
<150 Acceptable
150-174 Borderline high
175-499 High
>=500 Very high Cholesterol 09/06/2024 11:14:08 120 <200 (mg /dL) Final Total Cholesterol Reference Ranges (mg/dL):
<200 Desirable
200-239 Borderline high
>=240 High HDL 09/06/2024 11:14:08 42 >39 (mg/dL ) Final HDL Cholesterol Reference Ra nges (mg/dL):
>=60 High (Desirable)
<50 Low (Undesirable) For Females
<40 Low (Undesirable) For Males NON-HDL CHOLESTEROL 09/06/2024 11:14:08 78 <=159 (mg/dL) Final Non-HDL Cholesterol Referenc e Range (mg/dL):
<100 Target level for high risk ASCVD patient
<130 Optimal for general population
130-159 Near optimal for general population
160-189 Borderline High
190-219 High
>=220 Very High LDL, (calculated) 09/06/2024 11:14:08 53 <= 129 (mg/dL) Final LDL Cholesterol Reference Ra nges (mg/dL):
<70 Target level for high risk ASCVD patient
<100 Optimal for general population
100-129 Near optimal for general population
130-159 Borderline high
160-189 High
>=190 Very high
Patient has high LDL cholesterol. Consider screening for Familial Hypercholesterolemia. Performing Location [facility] [place] [address] [facility] [address]
--- OUTSIDE RECORDS SUMMARY | 2024-09-30 16:26 | External Medical Summary ---
Author Name Unknown Address Unknown Organization [id number]:[facility] [place] - [address] [facility] [address] Laboratory Report Ordering Provider Test Date Status PENNIE BRANTLEY 09/06/2024 11:14:08 Final Observation Date Value Abnormality Reference (Units ) Status HbA1C 09/06/2024 11:14:08 5.9 Above high normal 4. 0-5.6 (%) Final The use of HbA1c to monitor glycemic status is based on normal hemoglobin and HbA composition. This test should not be used in patients with abnormal hemoglobin that affects the half life of the red blood cell or the in vivo glycation rates. Glucose, estimated average 09/06/2024 11:14:08 123 <126 (mg/dL) Final Performing Location [facility] [place] [facility] [address] [facility] [address]
--- OUTSIDE RECORDS SUMMARY | 2024-09-30 16:26 | External Medical Summary ---
Author Name Unknown Address Unknown Organization K09:[facility] - [address] [place] [address] Laboratory Report Ordering Provider Test Date Status PENNIE BRANTLEY 09/06/2024 11:14:08 Final Observation Date Value Abnormality Reference (Units ) Status BUN 09/06/2024 11:14:08 24 Above high normal 6-20 (mg/dL) Final Creatinine 09/06/2024 11:14:08 0.9 0.6-1.2 (mg/dL) Final Glomerular filtration rate/1.73 sq M.predicted [Volume Rate/Area] in Serum, Plasma or Blood by Creatinine-based formula (CKD-EPI) 09/06/2024 11:14:08 >90 >=60 (mL/min) Final eGFR is calculated based on the CKD-EPI 2020 equation. Sodium 09/06/2024 11:14:08 142 135-146 (m mol/L) Final Potassium 09/06/2024 11:14:08 4.6 3.5-5.1 (m mol/L) Final Cl 09/06/2024 11:14:08 105 98-107 (mm ol/L) Final CO2 09/06/2024 11:14:08 28 22-32 (mmo l/L) Final Anion gap 09/06/2024 11:14:08 9 7-15 (mmol /L) Final Glucose 09/06/2024 11:14:08 101 70-120 (mg /dL) Final Albumin 09/06/2024 11:14:08 4.2 3.8-5.0 (g /dL) Final AST (Aspartate aminotransferase) 09/06/2024 11:14:08 28 10-50 (U/L) Final Alk Phos 09/06/2024 11:14:08 108 35-130 (U/ L) Final Bilirubin, Total 09/06/2024 11:14:08 0.5 <=1 .2 (mg/dL) Final Calcium 09/06/2024 11:14:08 9.9 8.4-10.2 ( mg/dL) Final Protein 09/06/2024 11:14:08 7.2 6.0-8.3 (g /dL) Final ALT (Alanine aminotransferase) 09/06/2024 11:14:08 19 10-50 (U/L) Final Performing Location [facility] [address] [place] [address]
--- OUTSIDE RECORDS SUMMARY | 2024-09-30 16:27 | External Medical Summary | Summary of Care ---
Author Name Unknown Organization [facility] Address [address] [place] [address] Phone [phone] Care Team Providers Care Hand Cultivator Name Role Phone Fercho Casper DO Primary Care Provider [phone] Reason for Visit * Reason Comments eRx-Medication Refill Encounter Details Date Type Department Care Team (Late st Contact Info) Description 05/08/2024 Refill Family Practice [facility] [address] [facility] [place] [address] Fercho Casper DO [address] [place] [address] Allergies Active Allergy Reactions Criticality Noted Date Comments Latex Rash 11/17/2017 Powdered latex Tetracycline 12/31/1999 rash documented as of this encounter (statuses as of 05/10/2024) Medications CENTRUM SILVER PO TABS Take by [...] by mouth as needed for Migraine. Active Acetaminophen 500 MG Oral Tablet (Tylenol) Take 1 Tablet by mouth every 6 hours as needed. Active Diclofenac Sodium 1 % External Gel (Voltaren)Indicati ons:Chronic pain of right knee Apply topically to affected area 2 times a day. Apply to right knee 100 g 5 03/23/20 23 Active FLUoxetine HCl 20 MG Oral Capsule (PROzac)Indication s:Dysthymia take 1 capsule by mouth every morning 90 Capsule 2 08/15/19 24 Active OneTouch Ultra In Vitro Strip (Glucose Blood) Use to test blood sugar up to 4 times daily. Dx E11.9 100 Strip 5 09/08/19 24 Active Clopidogrel Bisulfate 75 MG Oral Tablet (pLAVix)Indication s:Left pontine cerebrovascular accident (HCC) take 1 tablet by mouth every morning 90 Tablet 2 09/10/19 24 Active Albuterol Sulfate HFA 108 (90 [...] morning. 90 Capsule 3 11/23/19 24 Active Pantoprazole Sodium 40 MG Oral Tablet Delayed Release (Protonix) TAKE 1 TABLET BY MOUTH EVERY MORNING AND 1 TABLET BEFORE BEDTIME 60 Tablet 5 01/04/20 24 Active Losartan Potassium 25 MG Oral Tablet (Cozaar)Indication s:HTN, goal below 140/90 Take 1 Tablet by mouth in the morning. In the morning.. 90 Tablet 2 01/08/20 24 Active traMADol HCl 50 MG Oral Tablet (Ultram)Indication s:Bilateral hip pain,Spinal stenosis of lumbar region without neurogenic claudication Take 1 Tablet by mouth every 6 hours as needed for Pain, Severe. 60 Tablet 2 03/03/20 24 Active busPIRone HCl 5 MG Oral Tablet (Buspar) Take 1 Tablet by mouth daily at noon. 30 Tablet 5 03/09/20 24 Active LORazepam 1 MG Oral Tablet (Ativan) Take 1 tablet by mouth BEFORE BEDTIME if needed for anxiety 30 Tablet 2 03/22/20 24 Active traZODone HCl 50 MG Oral Tablet (Desyrel) Take 1 Tablet by mouth at bedtime. 90 Tablet 1 04/27/20 24 Active FLUoxetine HCl 40 MG Oral Capsule (PROzac)Indication s:Depression, unspecified depression type TAKE 1 CAPSULE BY MOUTH ONCE DAILY 90 Capsule 1 04/27/20 24 Active Sildenafil Citrate 50 MG Oral Tablet Take 1 Tablet by mouth daily as needed for Erectile Dysfunction. 10 Tablet 5 04/27/20 24 Active buPROPion HCl ER (XL) 150 MG Oral Tablet Extended Release 24 Hour (Wellbutrin XL) TAKE 1 TABLET BY MOUTH EVERY MORNING 30 Tablet 5 05/10/20 24 Active buPROPion HCl ER (XL) 150 MG Oral Tablet Extended Release 24 Hour (Wellbutrin XL) take 1 tablet by mouth every morning 30 Tablet 5 08/19/19 24 2023 Discontinued documented as of this encounter (statuses as of 05/10/2024) Active Problems Problem Noted Date Diagnosed Date Type 2 diabetes mellitus wit h diabetic [...] 2014 - AHI 20.9, desats 29 mins [facility] 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 History [...] as of this encounter (statuses as of 05/10/2024) Resolved Problems Problem Noted Date Diagnosed Date [...] as of this encounter (statuses as of 05/10/2024) Immunizations Name Administration Dates Next Due COVID-19 [...] Recorded PHQ Adult Total Score 0 04/29/2022 Sex and Gender Information Value Date Recorded Sex Assigned at Male 08/26/2023 3:53 AM EDT Legal Sex Male 6:00 AM EST Gender Identity Male 08/26/2023 3:53 AM EDT Sexual Orientation Not on file Occupation Industry Job Start Date Job End [...] Heidy June RN documented in this encounter Miscellaneous Notes * Telephone Encounter - Ifrah Robert RP - 05/10/2024 8:10 AM ESTSigned Prescriptions: Disp Refills buPROPion HCl ER (XL) 150 MG Oral Tablet E*30 Tab*5 Sig: TAKE 1 TABLET BY MOUTH EVERY MORNING Authorizing Provider: FERCHO CASPER Ordering User: IFRAH ROBERT * Telephone Encounter - Interface, E-Rx Ss Inbound - 05/10/2024 6:02 AM EST Pending Prescriptions: Disp Refills buPROPion HCl ER (XL) 150 MG Oral Tablet E*30 Tab*0 Sig: take 1tablet by mouth every morning documented in this encounter Plan of Treatment Scheduled Procedures Name Priority Associated Diagnoses Date/Ti me COLONOSCOPY FLEXIBLE PROXIMAL DIAGNOSTIC Recall History of colon polyps Health Maintenance Due Date Last Done Comments Alpha-1 Antitrypsin 08/19/1969 Cologuard 08/19/1996 Fecal Occult Blood Test 08/19/1996 Sigmoidoscopy 08/19/1996 Zoster Vaccines (1 of 2) 08/19/2001 DTap/Tdap Vaccines (2 - Td or Tdap) 03/27/2021 03/27/2011, 08/24/2003 Adult Wellness Visit 08/24/2021 08/24/2020 Depression Monitoring 04/29/2023 04/29/2022 Diabetic Eye Exam 08/01/2023 07/31/2022, , 07/30/2020, Additional history exists COVID-19 Vaccine ( season) 2024 05/01/2021, 08/08/2020, 06/30/2020 Influenza Vaccine (FLU shot) (#1) 2024 03/23/2023, 04/12/2021, 04/04/2019, Additional history exists Albumin/Creatinine Ratio 03/23/2024 023, 10/01/2021, 08/24/2020, Additional history exists Diabetic Foot Exam 03/23/2024 03/23/2023, 1 , 08/24/2020, Additional history exists HbA1c 03/24/2024 09/23/2023, 03/02, 04/29/2022, Additional history exists GFR 09/22/2024 09/23/2023, 07/31, 07/10/2022, Additional history exists O2 ASSESSMENT COMPLETED IN PAST YEAR FOR COPD 10/14/2024 10/15/2023 Colonoscopy 03/20/2025 03/20/2020, 03/02, 05/08/2014, Additional history exists Colorectal Cancer Screening 03/20/2025 Pneumococcal Vaccine: 65+ Years Completed 11/25/2016, 03/15/2015, 02/27/2009 RETIRED - [...] this encounter Medical Devices Implanted Type Area Cable Machine Operator Device Identifier Shelf Expiration Date Model / Serial / Lot Graft Bifur [id number] - [id number] - [id number] Implanted:Qty: 1 on 07/20/2017 by Holger Fair MD at OR [facility] N/A: Aorta [employer] : VASCULAR 03/31/2019 [id number] / [id number] / Limb Contralat [id number] - [id number] - [id number] Implanted:Qty: 1 on 07/20/2017 by Holger Fair MD at OR [facility] Left: Aorta [employer] : VASCULAR 04/27/2019 [id number] / [id number] / Aequalis Perform Cortiloc Pegged Glenoid Implanted:Qty: 1 on 11/17/2017 by Hong Becerra DO at OR [facility] Right: Shoulder [employer] 08/09/2020 [id number] / [id number] / Cement Bone Simplex Hv & G - [id number] Implanted:Qty: 1 on 11/17/2017 by Hong Becerra DO at OR [facility] Right: Shoulder JARED : ORTHOPAEDICS 12/29/2018 6195-1-01 [id number] Y Flex Shoulder System Aequalis Humeral Head 52mm 19mm Implanted:Qty: 1 on 11/17/2017 by Hong Becerra DO at OR [facility] Right: Shoulder [employer] 06/10/2022 [id number] / [id number] / Standard Ptc Humeral Stem Implanted:Qty: 1 on 11/17/2017 by Hong Becerra DO at OR [facility] Right: Shoulder [employer] 04/10/2021 [id number] / [id number] / Sterling Suture Biocomposite - [id number] Implanted:Qty: 2 on 11/17/2017 by Hong Becerra DO at OR [facility] Right: Shoulder [employer] 10/29/2018 AR-2324BC C / / [id number] Sut Sterling Biocomp 4.75mm Min5 - [id number] Implanted:Qty: 1 on 11/17/2017 by Hong Becerra DO at OR [facility] Right: Shoulder [employer] 05/31/[address] / / [id number] documented as of this encounter Advance Directives Documents on File Type Date Recorded Patient Ct Scan Technician Expl anation Advance Directives and Living Will 04/07/2005 Power of Digital Account Manager 04/07/2005 * Full Code (Latest Code [...] 7:34 AM 04/07/2005 8:34 AM Care Teams Hand Cultivator Relationship Specialty Start Date End Date Fercho Casper DO [address] [facility] [place] [address] PCP - General Family Medicine 11/14/16 documented as of this encounter
--- OUTSIDE RECORDS SUMMARY | 2024-09-30 16:27 | External Medical Summary | Summary of Care ---
Author Name Unknown Organization [facility] Address [address] [place] [address] Phone [phone] Care Team Providers Care Director Utilization Management Name Role Phone Fercho Casper DO Primary Care Provider [phone] Reason for Visit * Reason Onset Date Comments Medication Refill 07/29/2024 Encounter Details Date Type Department Care Team (Late st Contact Info) Description 07/29/[address] [facility] [address] [place] [address] Fercho Casper DO [address] [place] [address] Allergies Active Allergy Reactions Criticality Noted Date Comments Latex Rash 11/17/2017 Powdered latex Tetracycline 12/31/1999 rash documented as of this encounter (statuses as of 08/02/2024) Medications CENTRUM SILVER PO TABS Take by [...] Tablet (pLAVix)Indications :Left pontine cerebrovascular accident (HCC) take 1 tablet [...] morning.. 90 Tablet 2 01/08/20 24 Active busPIRone HCl 5 MG Oral Tablet (Buspar) Take 1 Tablet by mouth daily at noon. 30 Tablet 5 03/09/20 24 Active traZODone HCl 50 MG Oral [...] MORNING 90 Capsule 2 05/26/20 24 Active traMADol HCl 50 MG Oral Tablet (Ultram)Indications :Bilateral hip pain,Spinal stenosis of lumbar region without neurogenic claudication Take 1 Tablet by mouth every 6 hours as needed for Pain, Severe. 60 Tablet 2 05/28/20 24 Active Pantoprazole Sodium 40 MG Oral Tablet Delayed Release (Protonix) TAKE 1 TABLET BY MOUTH EVERY MORNING AND 1 TABLET BEFORE BEDTIME 60 Tablet 5 07/15/19 25 Active LORazepam 1 MG Oral Tablet (Ativan) Take 1 tablet by mouth BEFORE BEDTIME if needed for anxiety 30 Tablet 2 08/03/19 25 Active LORazepam 1 MG Oral Tablet (Ativan) Take 1 tablet by mouth BEFORE BEDTIME if needed for anxiety 30 Tablet 2 03/22/20 24 025 Discontin ued(Refil l) documented as of this encounter (statuses as of 08/02/2024) Active Problems Problem Noted Date Diagnosed Date [...] 2014 - AHI 20.9, desats 29 mins [facility] 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 5 Overview (02/21/2015): Holger Osman MD at [facility] Dyslipidemia 12/22/2014 Angioma 07/27/2013 Type 2 diabetes mellitus wit h hemoglobin A1c goal of less than 7.0% 03/27/2011 Overview (09/25/2015): ICD-10 update of inactive term History of Clostridium difficile infection 11/29 Overview (03/31/2012): Hospitalized at [facility] History of colonic polyps 03/14/2009 Overview (03/18/2009): 5 mm ceacal adenoma, repeat 3-5 yers SPINAL STENOSIS-LUMBAR 01/25/2001 CLASSICAL MIGRAINE WITHOU MENTION OF INTRACTABLE MIGRAINE Diverticulosis of colon documented as of this encounter (statuses as of 08/02/2024) Resolved Problems Problem Noted Date Diagnosed Date [...] as of this encounter (statuses as of 08/02/2024) Immunizations Name Administration Dates Next Due COVID-19 [...] Telephone Encounter - Fercho Casper DO - 08/02/2024 3:33 PM ESTSigned Prescriptions: Disp Refills LORazepam 1 MG Oral Tablet (Ativan) 30 Tab*2 Sig: Take 1 tablet by mouth BEFORE BEDTIME if needed for anxiety Authorizing Provider: FERCHO CASPER * Telephone Encounter - Rose Taylor LPN - 08/02/2024 10:20 AM ESTPending Prescriptions: Disp Refills LORazepam 1 MG Oral Tablet (Ativan) 30 Tab*2 Sig: Take 1 tablet by mouth BEFORE BEDTIME if needed for anxiety * Telephone Encounter - Tressa PeacockCHARLES - 07/29/2024 2:34 PM EST Did you pend patient's preferred pharmacy and medication before forwarding?yes Pharmacy: [facility] [id number] Pending Prescriptions: Disp Refills LORazepam 1 MG Oral Tablet (Ativan) 30 Tab*2 Sig: Take 1 tablet by mouth BEFORE BEDTIME if needed for anxiety Last Visit: 02/09/2024 (in office), 08/15/2020 (telemedicine) Next Visit: Visit date not found If no future appointments scheduled, and last appointment is greater than a year ago, please schedule patient for a follow-up appointment Last date the medication was ordered: Is this request for a controlled substance?Yes, What was the last refill date w/ quantity 30 and dosage 1mg and Urine Drug Screen Not completed Urine Drug Screen: Results for orders placed or performed in [...] results can be found in Results Review. Patient Phone Numbers Labs: Lab Results Component Value Date/Time CREAT 0.8 09/23/2023 04:02 PM CREAT 0.9 09/06/2020 10:25 AM CREAT 1.0 10/07/2019 08:54 AM POTASSIUM 4.4 09/23/2023 04:02 PM POTASSIUM 4.6 10/07/2019 08:54 AM TSH 1.52 11/14/2013 09:36 AM LDL 38 08/26/2023 10:29 AM LDL 52 04/06/2019 08:46 AM LDL NOT APPLICABLE 04/06/2019 08:46 AM LDLCALC 44 05/25/2015 12:00 AM ALT 25 09/23/2023 04:02 PM ALT 23 04/06/2019 08:46 AM HGBA1C 5.7 (H) 09/23/2023 04:02 PM HGBA1C 5.5 10/07/2019 08:54 AM documented in this encounter Plan of [...] 04/12/2021, 04/04/2019, Additional history exists Albumin/Creatinine Ratio 03/23/202403/23/ 023, 10/01/2021, 08/24/2020, Additional history exists Diabetic [...] this encounter Medical Devices Implanted Type Area Right Of Way Man Device Identifier Shelf Expiration Date Model / Serial / Lot Graft Bifur [id number] - [id number] - [id number] Implanted:Qty: 1 on 07/20/2017 by Holger Fair MD [place] [facility] [place]A: Aorta MED[employer] : VASCULAR 03/31/2019 [id number] / [id number] / Limb Contralat [id number] - [id number] - [id number] Implanted:Qty: 1 on 07/20/2017 by Holger Fair MD at [place] [facility] [place] Left: Aorta [employer] : VASCULAR 04/27/2019 [id number] / [id number] / Aequalis Perform Cortiloc Pegged Glenoid Implanted:Qty: 1 on 11/17/2017 by Hong Becerra DO at OR [facility] Right: Shoulder [employer] 08/09/2020 [id number] / [id number] / Cement Bone Simplex Hv & G - [id number] Implanted:Qty: 1 on 11/17/2017 by Hong Becerra DO at OR [facility] Right: Shoulder JARED : ORTHOPAEDICS 12/29/2018 6195-1-01 0 / / [id number] Y Flex Shoulder System Aequalis Humeral Head 52mm 19mm Implanted:Qty: 1 on 11/17/2017 by Hong Becerra DO at OR [facility] Right: Shoulder [employer] 06/10/2022 [id number] / [id number] / Standard Ptc Humeral Stem Implanted:Qty: 1 on 11/17/2017 by Hong Becerra DO at OR [facility] Right: Shoulder [employer] 04/10/2021 [id number] / [id number] / [place] Suture Biocomposite - [id number] Implanted:Qty: 2 on 11/17/2017 by Hong Becerra DO at OR [facility] Right: Shoulder [employer] 10/29/2018 AR-2324BC C / / [id number] Sut [place] Biocomp 4.75mm Min5 - [id number] Implanted:Qty: 1 on 11/17/2017 by Hong Becerra DO at OR [facility] Right: Shoulder [employer] 05/31/[address] / / [id number] documented as of this encounter Advance Directives Documents on File Type Date Recorded Patient Call Out Clerk Expl anation Advance Directives and Living Will 04/07/2005 Power of Safety Engineer Pressure Vessels 04/07/2005 * Full Code (Latest Code Status [...] 7:34 AM 04/07/2005 8:34 AM Care Teams Director Utilization Management Relationship Specialty Start Date End Date Fercho Casper DO [address] [place] [address] PCP - General Family Medicine 11/14/16 documented as of this encounter
--- OUTSIDE RECORDS SUMMARY | 2024-09-30 16:27 | External Medical Summary | Summary of Care ---
Author Name Unknown Organization [facility] Address [address] [place] [address] Phone [phone] Care Team Providers Care Cattle Rancher Name Role Phone Fercho Casper DO Primary Care Provider [phone] Reason for Visit * Reason Comments eRx-Medication Refill Encounter Details Date Type Department Care Team (Late st Contact Info) Description 05/24/2024 Refill Family Practice [facility] [address] [facility] [place] [address] Fercho Casper DO [address] [place] [address] Dysthymia Allergies Active Allergy Reactions Criticality Noted Date Comments Latex Rash 11/17/2017 Powdered latex Tetracycline 12/31/1999 rash documented as of this encounter (statuses as of 05/26/2024) Medications CENTRUM SILVER PO TABS Take by [...] MORNING 90 Capsule 2 05/26/20 24 Active FLUoxetine HCl 20 MG Oral Capsule (PROzac)Indication s:Dysthymia take 1 capsule by mouth every morning 90 Capsule 2 08/15/19 24 2023 Discontinued documented as of this encounter (statuses as of 05/26/2024) Active Problems Problem Noted Date Diagnosed Date [...] 2014 - AHI 20.9, desats 29 mins [facility] 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 History [...] as of this encounter (statuses as of 05/26/2024) Resolved Problems Problem Noted Date Diagnosed Date [...] as of this encounter (statuses as of 05/26/2024) Immunizations Name Administration Dates Next Due COVID-19 [...] 6:28 PM ELISAT Heidy Melgar RN * Because of a [...] encounter Miscellaneous Notes * Telephone Encounter - Silvana Salmon RPh - 05/26/2024 5:29 PM ESTSigned Prescriptions: Disp Refills FLUoxetine HCl 20 MG Oral Capsule (PROzac) 90 Cap*2 Sig: TAKE 1 CAPSULE BY MOUTH EVERY MORNING Authorizing Provider: FERCHO CASPER Ordering User: SILVANA SALMON * Telephone Encounter - Interface, E-Rx Ss Inbound - 05/26/2024 6:01 AM EST Pending Prescriptions: Disp Refills FLUoxetine HCl 20 MG Oral Capsule [Pharmac*90 Cap*0 Sig: take 1capsule by mouth every morning documented in this [...] this encounter Medical Devices Implanted Type Area Upholsterer Outside Device Identifier Shelf Expiration Date Model / Serial / Lot Graft Bifur [id number] - [id number] - [id number] Implanted:Qty: 1 on 07/20/2017 [place] [facility] [place] Aorta MED[employer] : VASCULAR 03/31/2019 [id number] 166E / [id number] / Limb Contralat [id number] - [id number] - [id number] Implanted:Qty: 1 on 07/20/2017 [place] [facility] [place]: Aorta [employer] : VASCULAR 04/27/2019 [id number] 124E / [id number] / Aequalis Perform Cortiloc Pegged Glenoid Implanted:Qty: 1 on 11/17/2017 by Hong Becerra DO at OR [facility] Right: Shoulder [employer] 08/09/2020 [id number] / [id number] / Cement Bone Simplex Hv & G - [id number] Implanted:Qty: 1 on 11/17/2017 by Hong Becerra DO at OR [facility] Right: Shoulder JARED : ORTHOPAEDICS 12/29/2018 6195-1-01 [id number] Y Flex Shoulder System Aequalis Humeral Head 52mm 19mm Implanted:Qty: 1 on 11/17/2017 by Hong Becerra DO at OR [facility] Right: Shoulder [employer] 06/10/2022 [id number] / [id number] / Standard Ptc Humeral Stem Implanted:Qty: 1 on 11/17/2017 by Hong Becerra DO at OR [facility] Right: Shoulder [employer] 04/10/2021 [id number] / [id number] / [place] Suture Biocomposite - [id number] Implanted:Qty: 2 on 11/17/2017 by Hong Becerra DO at OR [facility] Right: Shoulder [employer] 10/29/2018 AR-2324BC C / / [id number] Sut [place] Biocomp 4.75mm Min5 - [id number] Implanted:Qty: 1 on 11/17/2017 by Hong Becerra DO at OR [facility] Right: Shoulder [employer] 05/31/[address] / / [id number] documented as of this encounter Visit Diagnoses Diagnosis Dysthymia Dysthymic disorder documented in this encounter Advance Directives Documents on File Type Date Recorded 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
--- OUTSIDE RECORDS SUMMARY | 2024-09-30 16:27 | External Medical Summary | Summary of Care ---
Author Name Unknown Organization [facility] Address [address] [place] [address] Phone [phone] Care Team Providers Care General Car Yard Supervisor Name Role Phone Fercho Casper DO Primary Care Provider [phone] Reason for Visit * Reason Onset Date Comments Medication Refill 05/26/2024 Encounter Details Date Type Department Care Team (Late st Contact Info) Description 05/26/2024 Refill Family Practice [facility] [address] [place] [place] [address] Fercho Casper DO [address] [place] [address] Bilateral hip pain; SPINAL STENOSIS-LUMBAR Allergies Active Allergy Reactions Criticality Noted Date Comments Latex Rash 11/17/2017 Powdered latex Tetracycline 12/31/1999 rash documented as of this encounter (statuses as of 05/28/2024) Medications CENTRUM SILVER PO TABS Take by [...] Severe. 60 Tablet 2 05/28/20 24 Active traMADol HCl 50 MG Oral Tablet (Ultram)Indications :Bilateral hip pain,Spinal stenosis of lumbar region without neurogenic claudication Take 1 Tablet by mouth every 6 hours as needed for Pain, Severe. 60 Tablet 2 03/03/20 24 024 Discontin ued(Refil l) documented as of this encounter (statuses as of 05/28/2024) Active Problems Problem Noted Date Diagnosed Date [...] 5 Overview (02/21/2015): Holger Osman MD at [facility] Dyslipidemia 12/22/2014 Angioma 07/27/2013 Type 2 diabetes mellitus wit h hemoglobin A1c goal of less than 7.0% 03/27/2011 Overview (09/25/2015): ICD-10 update of inactive term History of Clostridium difficile infection 11/29 Overview (03/31/2012): Hospitalized at [facility] History of colonic polyps 03/14/2009 Overview (03/18/2009): 5 mm ceacal adenoma, repeat 3-5 yers SPINAL STENOSIS-LUMBAR 01/25/2001 CLASSICAL MIGRAINE WITHOU MENTION OF INTRACTABLE MIGRAINE Diverticulosis of colon documented as of this encounter (statuses as of 05/28/2024) Resolved Problems Problem Noted Date Diagnosed Date [...] as of this encounter (statuses as of 05/28/2024) Immunizations Name Administration Dates Next Due COVID-19 [...] Telephone Encounter - Fercho Casper DO - 05/28/2024 4:20 PM ESTSigned Prescriptions: Disp Refills traMADol HCl 50 MG Oral Tablet (Ultram) 60 Tab*2 Sig: Take 1 Tablet by mouth every 6 hours as needed for Pain, Severe. Authorizing Provider: FERCHO CASPER * Telephone Encounter - Kayden Fiore [facility] - 05/28/2024 2:26 PM ESTPending Prescriptions: Disp Refills traMADol HCl 50 MG Oral Tablet (Ultram) 60 Tab*2 Sig: Take 1 Tablet by mouth every 6 hours as needed for Pain, Severe. * Telephone Encounter - Kayden Fiore [facility] - 05/28/2024 2:26 PM EST I have reviewed the patient’s controlled substance dispensing history in the Prescription Drug Monitoring Program in compliance with the [facility] regulations before prescribing a controlled substance. PDMP checked on 05/28/2024. Pending Prescriptions: Disp Refills traMADol HCl 50 MG Oral Tablet (Ultram) 60 Tab*2 Sig: Take 1 Tablet by mouth every 6 hours as needed for Pain, Severe. Last Visit: 02/09/2024 (in office), 08/15/2020 (telemedicine) Next Visit: Visit date not found Date medication was last filled: 05-01-24 Date medication is due for refill: 05-16-24 Pharmacy: [facility] [id number] Is this request for a controlled substance? and Urine Drug Screen Not completed Toxicology results: Results for orders placed or performed in visit on 10/07/19 OPIOIDS/BENZO COMPLIANCE MONITORING W/INTERP Result Value COMPLIANCE INTERP (NOTE) URINE DRUG SCREEN RESULT Amphetamine NEGATIVE Benzodiazepines REFER TO CONFIRMATION RESULT (A) Cannabinoids NEGATIVE Cocaine Metabolite NEGATIVE HYDROCODONE NEGATIVE METHADONE METABOLITE NEGATIVE Morphine / Codeine NEGATIVE OXYCODONE NEGATIVE COMMENT THE ABOVE SCREENING RESULTS ARE [...] in Results Review. Please approve if appropriate. Kayden Fiore, Eva.Ph. Clinical Pharmacist [facility] [address] [place] [address], [address] [place] [address] MC: [phone] 05/28/2024,2:26 PM documented in this encounter Plan of Treatment [...] this encounter Medical Devices Implanted Type Area Preconstruction Manager Device Identifier Shelf Expiration Date Model / Serial / Lot Graft Bifur [id number] - [id number] - [id number] Implanted:Qty: 1 on 07/20/2017 [place] [facility] [place] Aorta [employer] : VASCULAR 03/31/2019 [id number] / [id number] / Limb Contralat [id number] - [id number] - [id number] Implanted:Qty: 1 on 07/20/2017 by [place] Fair [place] [facility] [place]: Aorta [employer] : VASCULAR 04/27/2019 [id number] / [id number] / Aequalis Perform Cortiloc Pegged Glenoid Implanted:Qty: 1 on 11/17/2017 by Hong Becerra DO at OR [facility] Right: Shoulder [employer] 08/09/2020 [id number] / [id number] / Cement Bone Simplex Hv & G - [id number] Implanted:Qty: 1 on 11/17/2017 by Hong Becerra DO at OR [facility] Right: Shoulder JARED : ORTHOPAEDICS 12/29/2018 6195-1-01 [id number] Y Flex Shoulder System Aequalis Humeral Head 52mm 19mm Implanted:Qty: 1 on 11/17/2017 by Hong Becerra DO at OR [facility] Right: Shoulder [employer] 06/10/2022 [id number] / [id number] / Standard Ptc Humeral Stem Implanted:Qty: 1 on 11/17/2017 by Hong Becerra DO at OR [facility] Right: Shoulder [employer] 04/10/2021 [id number] / [id number] / [place] Suture Biocomposite - [id number] Implanted:Qty: 2 on 11/17/2017 by Hong Becerra DO at OR [facility] Right: Shoulder [employer] 10/29/2018 AR-2324BC C / / [id number] Sut [place] Biocomp 4.75mm Min5 - [id number] Implanted:Qty: 1 on 11/17/2017 by Hong Becerra, at OR [facility] Right: Shoulder [employer] 05/31/[address] / / [id number] documented as of this encounter Visit Diagnoses Diagnosis Bilateral hip pain Pain in joint, pelvic region and thigh SPINAL STENOSIS-LUMBAR Spinal stenosis, lumbar region, without neurogenic claudication documented in this encounter Advance Directives Documents on File Type Date Recorded Patient Ecological Technical Officer Expl anation Advance Directives and Living Will 04/07/2005 Power of Licensed Nurse Practitioner 04/07/2005 * Full Code (Latest Code Status [...] 7:34 AM 04/07/2005 8:34 AM Care Teams General Car Yard Supervisor Relationship Specialty Start Date End Date Fercho Casper DO [address] [place] [address] PCP - General Family Medicine 11/14/16 documented as of this encounter
--- OUTSIDE RECORDS SUMMARY | 2024-09-30 16:27 | External Medical Summary | Summary of Care ---
Author Name Unknown Organization [facility] Address [address] [place] [address] Phone [phone] Care Team Providers Care Qa Developer Name Role Phone Zaid Arnold DO Primary Care Provider [phone] Encounter Details Date Type Department Care Team (Late st Contact Info) Description 03/09/2024 Telephone Family Practice [facility] [address] [place] [address] Zaid Arnold DO [address] [place] [address] Allergies Active Allergy Reactions Criticality Noted Date Comments Latex Rash 11/17/2017 Powdered latex Tetracycline 12/31/1999 rash documented as of this encounter (statuses as of 06/08/2024) Medications CENTRUM SILVER PO TABS Take by [...] day as directed. E11.9 400 Strip 3 02/12/2 021 Active Rizatriptan Benzoate 10 MG Oral [...] right knee 100 g 5 023 Active CQuotientToResilience Ultra In Vitro Strip (Glucose Blood) Use to test blood sugar up to 4 times daily. Dx E11.9 100 Strip 5 024 Active Clopidogrel Bisulfate 75 MG Oral Tablet (pLAVix)Indication s:Left pontine cerebrovascular accident (HCC) take 1 tablet by mouth every morning 90 Tablet 2 024 Active Albuterol Sulfate HFA 108 (90 [...] the morning. 90 Capsule 3 024 Active Pantoprazole Sodium 40 MG Oral Tablet Delayed Release (Protonix) TAKE 1 TABLET BY MOUTH EVERY MORNING AND 1 TABLET BEFORE BEDTIME 60 Tablet 5 024 Active Losartan Potassium 25 MG Oral Tablet (Cozaar)Indication s:HTN, goal below 140/90 Take 1 Tablet by mouth in the morning. In the morning.. 90 Tablet 2 024 Active busPIRone HCl 5 MG Oral Tablet (Buspar) Take 1 Tablet by mouth daily at noon. 30 Tablet 5 024 Active FLUoxetine HCl 40 MG Oral Capsule (PROzac)Indication s:Depression, unspecified depression type take 1 capsule by mouth daily 90 Capsule 2 024 2023 Discontinued FLUoxetine HCl 20 MG Oral Capsule (PROzac)Indication s:Dysthymia take 1 capsule by mouth every morning 90 Capsule 2 024 2023 Discontinued buPROPion HCl ER (XL) 150 MG Oral Tablet Extended Release 24 Hour (Wellbutrin XL) take 1 tablet by mouth every morning 30 Tablet 5 024 2023 Discontinued traZODone HCl 50 MG Oral Tablet (Desyrel) Take 1 Tablet by mouth at bedtime. 90 Tablet 1 024 2023 Discontinued LORazepam 1 MG Oral Tablet (Ativan) Take 1 tablet by mouth BEFORE BEDTIME if needed for anxiety 30 Tablet 2 024 2023 Discontinued(R efill) traMADol HCl 50 MG Oral Tablet (Ultram)Indication s:Bilateral hip pain,Spinal stenosis of lumbar region without neurogenic claudication Take 1 Tablet by mouth every 6 hours as needed for Pain, Severe. 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 5 Overview (02/21/2015): Holger Osman MD at [facility] Dyslipidemia 12/22/2014 Angioma 07/27/2013 Type 2 diabetes mellitus wit h hemoglobin A1c goal of less than 7.0% 03/27/2011 Overview (09/25/2015): ICD-10 update of inactive term History of Clostridium difficile infection 11/29 Overview (03/31/2012): Hospitalized at [facility] History of colonic polyps 03/14/2009 Overview (03/18/2009): 5 mm ceacal adenoma, repeat 3-5 yers SPINAL STENOSIS-LUMBAR 01/25/2001 CLASSICAL MIGRAINE WITHOU MENTION OF INTRACTABLE MIGRAINE Diverticulosis of colon documented as of this encounter (statuses as of 06/08/2024) Resolved Problems Problem Noted Date Diagnosed Date [...] as of this encounter (statuses as of 06/08/2024) Immunizations Name Administration Dates Next Due COVID-19 [...] Telephone Encounter - Zaid Arnold DO - 03/09/2024 10:30 AM EDT Anxiety discussed documented in this encounter Plan of Treatment [...] this encounter Medical Devices Implanted Type Area Journeyman Operator Assistant Device Identifier Shelf Expiration Date Model / Serial / Lot Graft Bifur [id number] - [id number] - [id number] Implanted:Qty: 1 on 07/20/2017 by Holger Fair MD at OR [facility] [place] [place] N/A: Aorta MEDTRONIC : VASCULAR 03/31/2019 [id number] / [id number] / Limb Contralat [id number] - [id number] - [id number] Implanted:Qty: 1 on 07/20/2017 by Holger Fair MD at OR [facility] [place] [place] Left: Aorta MEDTRONIC : VASCULAR 04/27/2019 [id number] 124E / [id number] / Aequalis Perform Cortiloc Pegged Glenoid Implanted:Qty: 1 on 11/17/2017 by Hong Becerra DO at OR [facility] Right: Shoulder [employer] 08/09/2020 [id number] / [id number] / Cement Bone Simplex Hv & G - [id number] Implanted:Qty: 1 on 11/17/2017 by Hong Becerra DO at OR [facility] Right: Shoulder JARED : ORTHOPAEDICS 12/29/2018 6195-1-01 0 / / [id number] Y Flex Shoulder System Aequalis Humeral Head 52mm 19mm Implanted:Qty: 1 on 11/17/2017 by Hong Becerra, at OR [facility] Right: Shoulder [employer] 06/10/2022 [id number] / [id number] / Standard Ptc Humeral Stem Implanted:Qty: 1 on 11/17/2017 by Hong Becerra DO at OR [facility] Right: Shoulder [employer] 04/10/2021 [id number] / [id number] / [place] Suture Biocomposite - [id number] Implanted:Qty: 2 on 11/17/2017 by Hong Becerra DO at OR [facility] Right: Shoulder [employer] 10/29/2018 AR-2324BC C / / [id number] Sut [place] Biocomp 4.75mm Min5 - [id number] Implanted:Qty: 1 on 11/17/2017 by Hong Becerra DO at OR [facility] Right: Shoulder [employer] 05/31/[address] / / [id number] documented as of this encounter Advance Directives Documents on File Type Date Recorded Patient Manufacturing Area Manager Expl anation Advance Directives and Living Will 04/07/2005 Power of Dovetail Machine Operator 04/07/2005 * Full Code (Latest Code [...] 7:34 AM 04/07/2005 8:34 AM Care Teams Qa Developer Relationship Specialty Start Date End Date Zaid Arnold DO [address] [place] [address] PCP - General Family Medicine 11/14/16 documented as of this encounter
--- OUTSIDE RECORDS SUMMARY | 2024-09-30 16:27 | External Medical Summary | Summary of Care ---
Author Name Unknown Organization [facility] Address [address] [place] [address] Phone [phone] Care Team Providers Care Factory Assembler Name Role Phone Fercho Casper DO Primary Care Provider [phone] Reason for Visit * Reason Comments eRx-Medication Refill Encounter Details Date Type Department Care Team (Late st Contact Info) Description 07/15/2024 Refill Family Practice [facility] [address] [place] [address] Fercho Casper DO [address] [place] [address] Allergies Active Allergy Reactions Criticality Noted Date Comments Latex Rash 11/17/2017 Powdered latex Tetracycline 12/31/1999 rash documented as of this encounter (statuses as of 07/15/2024) Medications CENTRUM SILVER PO TABS Take by [...] BEDTIME 60 Tablet 5 07/15/19 25 Active Pantoprazole Sodium 40 MG Oral Tablet Delayed Release (Protonix) TAKE 1 TABLET BY MOUTH EVERY MORNING AND 1 TABLET BEFORE BEDTIME 60 Tablet 5 01/04/20 24 2024 Discontinued documented as of this encounter (statuses as of 07/15/2024) Active Problems Problem Noted Date Diagnosed Date [...] 2014 - AHI 20.9, desats 29 mins [facility] 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 5 Overview (02/21/2015): Holgre Osman MD at [facility] Dyslipidemia 12/22/2014 Angioma 07/27/2013 Type 2 diabetes mellitus wit h hemoglobin A1c goal of less than 7.0% 03/27/2011 Overview (09/25/2015): ICD-10 update of inactive term History of Clostridium difficile infection 11/29 Overview (03/31/2012): Hospitalized at [facility] History of colonic polyps 03/14/2009 Overview (03/18/2009): 5 mm ceacal adenoma, repeat 3-5 yers SPINAL STENOSIS-LUMBAR 01/25/2001 CLASSICAL MIGRAINE WITHOU MENTION OF INTRACTABLE MIGRAINE Diverticulosis of colon documented as of this encounter (statuses as of 07/15/2024) Resolved Problems Problem Noted Date Diagnosed Date [...] as of this encounter (statuses as of 07/15/2024) Immunizations Name Administration Dates Next Due COVID-19 [...] encounter Miscellaneous Notes * Telephone Encounter - Anneliese Verma RPh - 07/15/2024 2:23 PM ESTSigned Prescriptions: Disp Refills Pantoprazole Sodium 40 MG Oral Tablet Gloria*60 Tab*5 Sig: TAKE 1 TABLET BY MOUTH EVERY MORNING AND 1 TABLET BEFORE BEDTIMEAuthorizing Provider: FERCHO CASPER User: ANNELIESE VERMA documented in this encounter Plan of Treatment [...] this encounter Medical Devices Implanted Type Area Mat Puncher Device Identifier Shelf Expiration Date Model / Serial / Lot Graft Bifur [id number] - [id number] - [id number] Implanted:Qty: 1 on 07/20/2017 [place] [facility] [place] Aorta MEDTRONIC : VASCULAR 03/31/2019 [id number] 166E / [id number] / Limb Contralat [id number] - [id number] - [id number] Implanted:Qty: 1 on 07/20/2017 by [place] [facility] [place]: Aorta MEDTRONIC : VASCULAR 04/27/2019 [id number] 124E / [id number] / Aequalis Perform Cortiloc Pegged Glenoid Implanted:Qty: 1 on 11/17/2017 by Hong Becerra DO at OR [facility] Right: Shoulder [employer] 08/09/2020 [id number] / [id number] / Cement Bone Simplex Hv & G - [id number] Implanted:Qty: 1 on 11/17/2017 by Hong Becerra DO at OR [facility] Right: Shoulder JARED : ORTHOPAEDICS 12/29/2018 6195-1-01 0 / / [id number] Y Flex Shoulder System Aequalis Humeral Head 52mm 19mm Implanted:Qty: 1 on 11/17/2017 by Hong Becerra DO at OR [facility] Right: Shoulder [employer] 06/10/2022 [id number] / [id number] / Standard Ptc Humeral Stem Implanted:Qty: 1 on 11/17/2017 by Hong Becerra DO at OR [facility] Right: Shoulder [employer] 04/10/2021 [id number] / [id number] / [place] Suture Biocomposite - [id number] Implanted:Qty: 2 on 11/17/2017 by Hong Becerra DO at OR [facility] Right: Shoulder [employer] 10/29/2018 AR-2324BC C / / [id number] Sut [place] Biocomp 4.75mm Min5 - [id number] Implanted:Qty: 1 on 11/17/2017 by Hong Becerra DO at OR [facility] Right: Shoulder [employer] 05/31/[address] / / [id number] documented as of this encounter Advance Directives Documents on File Type Date Recorded Patient Jewel Waxer Expl anation Advance Directives and Living Will 04/07/2005 Power of Truck Dispatcher 04/07/2005 * Full Code (Latest Code Status [...] 7:34 AM 04/07/2005 8:34 AM Care Teams Factory Assembler Relationship Specialty Start Date End Date Fercho Casper DO [address] [facility] [place] [address] PCP - General Family Medicine 11/14/16 documented as of this encounter
--- OUTSIDE RECORDS SUMMARY | 2024-09-30 16:27 | External Medical Summary | Summary of Care ---
Author Name Unknown Organization [facility] Address [address] [place] [address] Phone [phone] Care Team Providers Care Spring Layer Name Role Phone Fercho Casper DO Primary Care Provider [phone] Reason for Visit * Reason Comments eRx-Medication Refill Encounter Details Date Type Department Care Team (Late st Contact Info) Description 08/25/2024 Refill Family Practice [facility] [address] [facility] [address] Fercho Casper DO [address] [place] [address] Bilateral hip pain; SPINAL STENOSIS-LUMBAR; Left pontine cerebrovascular accident (HCC) Allergies Active Allergy Reactions Criticality Noted Date Comments Latex Rash 11/17/2017 Powdered latex Tetracycline 12/31/1999 rash documented as of this encounter (statuses as of 08/26/2024) Medications CENTRUM SILVER PO TABS Take by [...] anxiety 30 Tablet 2 08/03/19 25 Active traMADol HCl 50 MG Oral Tablet (Ultram)Indication s:Bilateral hip pain,Spinal stenosis of lumbar region without neurogenic claudication Take 1 Tablet by mouth every 6 hours as needed for Pain, Severe 60 Tablet 08/27/19 25 Active Clopidogrel Bisulfate 75 MG Oral Tablet (pLAVix)Indication s:Left pontine cerebrovascular accident (HCC) TAKE 1 TABLET BY MOUTH EVERY MORNING 90 Tablet 08/27/19 25 Active Clopidogrel Bisulfate 75 MG Oral Tablet (pLAVix)Indication s:Left pontine cerebrovascular accident (HCC) take 1 tablet by mouth every morning 90 Tablet 2 09/10/19 24 2024 Discontinued traMADol HCl 50 MG Oral Tablet (Ultram)Indication s:Bilateral hip pain,Spinal stenosis of lumbar region without neurogenic claudication Take 1 Tablet by mouth every 6 hours as needed for Pain, Severe. 60 Tablet 2 05/28/20 24 2024 Discontinued documented as of this encounter (statuses as of 08/26/2024) Active Problems Problem Noted Date Diagnosed Date [...] 5 Overview (02/21/2015): Holger Osman MD at [facility] Dyslipidemia 12/22/2014 Angioma 07/27/2013 Type 2 diabetes mellitus wit h hemoglobin A1c goal of less than 7.0% 03/27/2011 Overview (09/25/2015): ICD-10 update of inactive term History of Clostridium difficile infection 11/29 Overview (03/31/2012): Hospitalized at [facility] History of colonic polyps 03/14/2009 Overview (03/18/2009): 5 mm ceacal adenoma, repeat 3-5 yers SPINAL STENOSIS-LUMBAR 01/25/2001 CLASSICAL MIGRAINE WITHOU MENTION OF INTRACTABLE MIGRAINE Diverticulosis of colon documented as of this encounter (statuses as of 08/26/2024) Resolved Problems Problem Noted Date Diagnosed Date [...] as of this encounter (statuses as of 08/26/2024) Immunizations Name Administration Dates Next Due COVID-19 [...] Telephone Encounter - Fercho Casper DO - 08/26/2024 11:58 AM EDTSigned Prescriptions: Disp Refills traMADol HCl 50 MG Oral Tablet (Ultram) 60 Tab*0 Sig: Take 1 Tablet by mouth every 6 hours as needed for Pain, Severe Authorizing Provider: FERCHO CASPER Clopidogrel Bisulfate 75 MG Oral Tablet (p*90 Tab*0 Sig: TAKE 1 TABLET BY MOUTH EVERY MORNING Authorizing Provider: FERCHO CASPER Ordering User: FRANKLYN PEARL KIMBERLY * Telephone Encounter - Franklyn Pearl [facility] - 08/26/2024 11:48 AM EDT Pending Prescriptions: Disp Refills traMADol HCl 50 MG Oral Tablet (Ultram) 60 Tab*0 Sig: Take 1 Tablet by mouth every 6 hours as needed for Pain, Severe Signed Prescriptions: Disp Refills Clopidogrel Bisulfate 75 MG Oral Tablet (p*90 Tab*0 Sig: TAKE 1 TABLET BY MOUTH EVERY MORNING Authorizing Provider: FERCHO CASPER [facility] er: FRANKLYN PEARL * Telephone Encounter - Franklyn Pearl [facility] - 08/26/2024 11:47 AM EDT I have reviewed the patient’s controlled substance dispensing history in the Prescription Drug Monitoring Program in compliance with the [facility] regulations before prescribing a controlled substance. PDMP checked on 08/26/2024. Pending Prescriptions: Disp Refills traMADol HCl 50 MG Oral Tablet (Ultram) [*60 Tab*0 Sig: Take 1 Tablet by mouth every 6 hours as needed for Pain, Severe Last Visit: 02/09/2024 (in office), 08/15/2020 (telemedicine) Next Visit: 09/28/2024 Date medication was last filled: 08/03/24 Date medication is due for refill: 08/17/24 Pharmacy: [facility] [id number] Is this request for a controlled [...] Results Review. Please approve if appropriate. Thank you Chava Pearl, PharmD Clinical Pharmacist [facility] ([facility]) PH:[phone] 08/26/2024, 11:48 AM documented in this encounter Plan of Treatment Upcoming Encounters Date Type Department Care Team (Late st Contact Info) Description 09/28/2024 10:40 AM EDT Office Visit Family Practice [facility] [address] [facility] [place], [place] [address] Fercho Casper, DO [address] [facility] [place], [place] [address] Scheduled Procedures Name Priority Associated Diagnoses Date/Ti [...] this encounter Medical Devices Implanted Type Area Mortgage Originator Device Identifier Shelf Expiration Date Model / Serial / Lot Graft Bifur [id number] - [id number] - [id number] Implanted:Qty: 1 on 07/20/2017 by [place]ger Fair [place] [facility] [place]: Aorta MEDTRONIC : VASCULAR 03/31/2019 [id number] 166E / [id number] / Limb Contralat [id number] - [id number] - [id number] Implanted:Qty: 1 on 07/20/2017 by Holger Fair MD [place] [facility] [place] Left: Aorta MEDTRONIC : VASCULAR 04/27/2019 [id number] 124E / [id number] / Aequalis Perform Cortiloc Pegged Glenoid Implanted:Qty: 1 on 11/17/2017 by Hong Becerra DO at OR [facility] Right: Shoulder [employer] 08/09/2020 [id number] / [id number] / Cement Bone Simplex Hv & G - [id number] Implanted:Qty: 1 on 11/17/2017 by Hong Becerra DO at OR [facility] Right: Shoulder JARED : ORTHOPAEDICS 12/29/2018 6195-1-01 0 / / [id number] Y Flex Shoulder System Aequalis Humeral Head 52mm 19mm Implanted:Qty: 1 on 11/17/2017 by Hong Becerra DO at OR [facility] Right: Shoulder [employer] 06/10/2022 [id number] / [id number] / Standard Ptc Humeral Stem Implanted:Qty: 1 on 11/17/2017 by Hong Becerra DO at OR [facility] Right: Shoulder [employer] 04/10/2021 [id number] / [id number] / [place] Suture Biocomposite - [id number] Implanted:Qty: 2 on 11/17/2017 by Hong Becerra DO at OR [facility] Right: Shoulder [employer] 10/29/2018 BRENTON-2324BC C / / [id number] Sut [place] Biocomp 4.75mm Min5 - [id number] Implanted:Qty: 1 on 11/17/2017 by Hong Becerra DO at OR [facility] Right: Shoulder [employer] 05/31/[address] AR-[address] / / [id number] documented as of this encounter Visit Diagnoses Diagnosis Bilateral hip pain Pain in joint, pelvic region and thigh SPINAL STENOSIS-LUMBAR Spinal stenosis, lumbar region, without neurogenic claudication Left pontine cerebrovascular accident (HCC) Unspecified cerebral artery occlusion with cerebral infarction documented in this encounter Advance Directives Documents on File Type Date Recorded Patient Associate Creative Director Expl anation Advance Directives and Living Will 04/07/2005 Power of Manager Wealth Management 04/07/2005 * Full Code (Latest Code Status [...] 7:34 AM 04/07/2005 8:34 AM Care Teams Spring Layer Relationship Specialty Start Date End Date Fercho Casper DO [address] [place] [address], [place] [address] PCP - General Family Medicine 11/14/16 documented as of this encounter
--- OUTSIDE RECORDS SUMMARY | 2024-09-30 16:27 | External Medical Summary | Summary of Care ---
Author Name Unknown Organization [facility] Address [address] [place] [address] Phone [phone] Care Team Providers Care Eligibility Manager Name Role Phone Fercho Casper DO Primary Care Provider [phone] Reason for Visit * Reason Comments eRx-Medication Refill Encounter Details Date Type Department Care Team (Late st Contact Info) Description 04/27/2024 Refill Family Practice [facility] [address] [place] [address] Fercho Casper DO [address] [place] [address] Depression, unspecified depression type Allergies Active Allergy Reactions Criticality Noted Date Comments Latex Rash 11/17/2017 Powdered latex Tetracycline 12/31/1999 rash documented as of this encounter (statuses as of 04/27/2024) Medications CENTRUM SILVER PO TABS Take by [...] morning 90 Capsule 2 08/15/19 24 Active buPROPion HCl ER (XL) 150 MG Oral Tablet Extended Release 24 Hour (Wellbutrin XL) take 1 tablet by mouth every morning 30 Tablet 5 08/19/19 24 Active OneTouch Ultra In Vitro Strip [...] DAILY 90 Capsule 1 04/27/20 24 Active FLUoxetine HCl 40 MG Oral Capsule (PROzac)Indication s:Depression, unspecified depression type take 1 capsule by mouth daily 90 Capsule 2 08/02/19 24 2023 Discontinued traZODone HCl 50 MG Oral Tablet (Desyrel) Take 1 Tablet by mouth at bedtime. 90 Tablet 1 11/05/19 24 2023 Discontinued documented as of this encounter (statuses as of 04/27/2024) Active Problems Problem Noted Date Diagnosed Date [...] 2014 - AHI 20.9, desats 29 mins [facility] 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 5 Overview (02/21/2015): Holger Osman MD at [facility] Dyslipidemia 12/22/2014 Angioma 07/27/2013 Type 2 diabetes mellitus wit h hemoglobin A1c goal of less than 7.0% 03/27/2011 Overview (09/25/2015): ICD-10 update of inactive term History of Clostridium difficile infection 11/29 Overview (03/31/2012): Hospitalized at [facility] History of colonic polyps 03/14/2009 Overview (03/18/2009): 5 mm ceacal adenoma, repeat 3-5 yers SPINAL STENOSIS-LUMBAR 01/25/2001 CLASSICAL MIGRAINE WITHOU MENTION OF INTRACTABLE MIGRAINE Diverticulosis of colon documented as of this encounter (statuses as of 04/27/2024) Resolved Problems Problem Noted Date Diagnosed Date [...] as of this encounter (statuses as of 04/27/2024) Immunizations Name Administration Dates Next Due COVID-19 [...] encounter Miscellaneous Notes * Telephone Encounter - Michell Pagan, [facility] - 04/27/2024 4:40 PM ESTSigned Prescriptions: Disp Refills traZODone HCl 50 MG Oral Tablet (Desyrel) 90 Tab*1 Sig: Take 1 Tablet by mouth at bedtime.Authorizing Provider: FERCHO CASPER User: MICHELL PAGAN FLUoxetine HCl 40 MG Oral Capsule (PROzac) 90 Cap*1 Sig: TAKE 1 CAPSULE BY MOUTH ONCE DAILYAuthorizing Provider: FERCHO CASPER User: MICHELL PAGAN documented in this encounter Plan of Treatment Upcoming Encounters Date Type Department Care Team (Late st Contact Info) Description 05/24/2024 9:20 AM EST Office Visit Family Practice [facility] [place] [address] [place] [address] Fercho Casper DO 200 [facility] [place] [address] Scheduled Procedures Name Priority Associated Diagnoses Date/Ti [...] this encounter Medical Devices Implanted Type Area Spinning Lathe Operator Automatic Device Identifier Shelf Expiration Date Model / Serial / Lot Graft Bifur [id number] - [id number] - [id number] Implanted:Qty: 1 on 07/20/2017 by [place]ger Fair [place] [facility] [place]: Aorta MEDTRONIC : VASCULAR 03/31/2019 [id number] 166E / [id number] / Limb Contralat [id number] - [id number] - [id number] Implanted:Qty: 1 on 07/20/2017 by Holger Fair MD [place] [facility] [place]: Aorta MEDTRONIC : VASCULAR 04/27/2019 [id number] 124E / [id number] / Aequalis Perform Cortiloc Pegged Glenoid Implanted:Qty: 1 on 11/17/2017 by Hong Becerra DO at OR [facility] Right: Shoulder [employer] 08/09/2020 [id number] / [id number] / Cement Bone Simplex Hv & G - [id number] Implanted:Qty: 1 on 11/17/2017 by Hong Becerra DO at OR [facility] Right: Shoulder JARED : ORTHOPAEDICS 12/29/2018 6195-1-01 [id number] Y Flex Shoulder System Aequalis Humeral Head 52mm 19mm Implanted:Qty: 1 on 11/17/2017 by Hong Becerra DO at OR [facility] Right: Shoulder [employer] 06/10/2022 [id number] / [id number] / Standard Ptc Humeral Stem Implanted:Qty: 1 on 11/17/2017 by Hong Becerra DO at OR [facility] Right: Shoulder [employer] 04/10/2021 [id number] / [id number] / [place] Suture Biocomposite - [id number] Implanted:Qty: 2 on 11/17/2017 by Hong Becerra DO at OR [facility] Right: Shoulder [employer] 10/29/2018 AR-2324BC C / / [id number] Sut [place] Biocomp 4.75mm Min5 - [id number] Implanted:Qty: 1 on 11/17/2017 by Hong Becerra DO at OR [facility] Right: Shoulder [employer] 05/31/[address] / / [id number] documented as of this encounter Visit Diagnoses Diagnosis Depression, unspecified depression type documented in this encounter Advance Directives Documents on File Type Date Recorded Patient Family Practice Physician Expl anation Advance Directives and Living Will 04/07/2005 Power of Global Lead 04/07/2005 * Full Code (Latest Code Status [...] 7:34 AM 04/07/2005 8:34 AM Care Teams Eligibility Manager Relationship Specialty Start Date End Date Fercho Casper DO [address] [place] [address] PCP - General Family Medicine 11/14/16 documented as of this encounter
--- OUTSIDE RECORDS SUMMARY | 2024-09-30 16:27 | External Medical Summary | Summary of Care ---
Author Name Unknown Organization [facility] Address [address] [place] [address] Phone [phone] Care Team Providers Care Otr Owner Operator Name Role Phone Fercho Casper DO Primary Care Provider [phone] Reason for Visit * Reason Onset Date Comments Medication Refill 03/21/2024 Encounter Details Date Type Department Care Team (Late st Contact Info) Description 03/21/2024 Refill Family Practice [facility] [address] [place] [address] Fercho Casper DO [address] [place] [address] Allergies Active Allergy Reactions Criticality Noted Date Comments Latex Rash 11/17/2017 Powdered latex Tetracycline 12/31/1999 rash documented as of this encounter (statuses as of 05/12/2024) Medications CENTRUM SILVER PO TABS Take by [...] right knee 100 g 5 023 Active FLUoxetine HCl 20 MG Oral Capsule (PROzac)Indication s:Dysthymia take 1 capsule by mouth every morning 90 Capsule 2 024 Active OneTouch Ultra In Vitro Strip (Glucose [...] the morning.. 90 Tablet 2 024 Active traMADol HCl 50 MG Oral Tablet (Ultram)Indication s:Bilateral hip pain,Spinal stenosis of lumbar region without neurogenic claudication Take 1 Tablet by mouth every 6 hours as needed for Pain, Severe. 60 Tablet 2 10/03/2 024 Active busPIRone HCl 5 MG Oral Tablet (Buspar) Take 1 Tablet by mouth daily at noon. 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 5 Overview (02/21/2015): Holger Osman MD at [facility] Dyslipidemia 12/22/2014 Angioma 07/27/2013 Type 2 diabetes mellitus wit h hemoglobin A1c goal of less than 7.0% 03/27/2011 Overview (09/25/2015): ICD-10 update of inactive term History of Clostridium difficile infection 11/29 Overview (03/31/2012): Hospitalized at [facility] History of colonic polyps 03/14/2009 Overview (03/18/2009): 5 mm ceacal adenoma, repeat 3-5 yers SPINAL STENOSIS-LUMBAR 01/25/2001 CLASSICAL MIGRAINE WITHOU MENTION OF INTRACTABLE MIGRAINE Diverticulosis of colon documented as of this encounter (statuses as of 05/12/2024) Resolved Problems Problem Noted Date Diagnosed Date [...] as of this encounter (statuses as of 05/12/2024) Immunizations Name Administration Dates Next Due COVID-19 [...] Telephone Encounter - Fercho Casper DO - 03/22/2024 5:09 PM EDTSigned Prescriptions: Disp Refills LORazepam 1 MG Oral Tablet (Ativan) 30 Tab*2 Sig: Take 1 tablet by mouth BEFORE BEDTIME if needed for anxiety Authorizing Provider: FERCHO CASPER * Telephone Encounter - Chanel Ortiz LPN - 03/22/2024 12:58 PM EDTPending Prescriptions: Disp Refills LORazepam 1 MG Oral Tablet (Ativan) 30 Tab*2 Sig: Take 1 tablet by mouth BEFORE BEDTIME if needed for anxiety * Telephone Encounter - Chanel Ortiz LPN - 03/22/2024 12:58 PM EDT Did you pend patient's preferred pharmacy and medication before forwarding?yes Pharmacy: [facility] [id number] Pending Prescriptions: Disp Refills LORazepam 1 MG Oral Tablet (Ativan) 30 Tab*2 Sig: Take 1 tablet by mouth BEFORE BEDTIME if needed for anxiety Last Visit: 02/09/2024 (in office), 08/15/2020 (telemedicine) Next Visit: 05/24/2024 If no future appointments scheduled, and last appointment is greater than a year ago, please schedule patient for a follow-up appointment Last date the medication was ordered: 02/04/24 Is this request for a controlled substance? Urine Drug Screen: Results for orders placed [...] this encounter Medical Devices Implanted Type Area Paper Twister Tender Device Identifier Shelf Expiration Date Model / Serial / Lot Graft Bifur [id number] - [id number] - [id number] Implanted:Qty: 1 on 07/20/2017 by [place] Fair [place] [facility] [place] Aorta [employer] : VASCULAR 03/31/2019 [id number] / [id number] / Limb Contralat [id number] - [id number] - [id number] Implanted:Qty: 1 on 07/20/2017 by Holger Fair MD [place] [facility] [place] Left: Aorta [employer] : VASCULAR 04/27/2019 [id number] / [id number] / Aequalis Perform Cortiloc Pegged Glenoid Implanted:Qty: 1 on 11/17/2017 by Hong Becerra DO at OR [facility] Right: Shoulder [employer] 08/09/2020 [id number] / [id number] / Cement Bone Simplex Hv & G - [id number] Implanted:Qty: 1 on 11/17/2017 by Hong Becerra DO at OR [facility] Right: Shoulder JARED : ORTHOPAEDICS 12/29/2018 6195-1-01 0 / / [id number] Y Flex Shoulder System Aequalis Humeral Head 52mm 19mm Implanted:Qty: 1 on 11/17/2017 by Hong Becerra DO at OR [facility] Right: Shoulder [employer] 06/10/2022 [id number] / [id number] / Standard Ptc Humeral Stem Implanted:Qty: 1 on 11/17/2017 by Hong Becerra DO at OR [facility] Right: Shoulder [employer] 04/10/2021 [id number] / [id number] / [place] Suture Biocomposite - [id number] Implanted:Qty: 2 on 11/17/2017 by Hong Becerra DO at OR [facility] Right: Shoulder [employer] 10/29/2018 [id number]-2324BC C / / [id number] Sut [place] Biocomp 4.75mm Min5 - [id number] Implanted:Qty: 1 on 11/17/2017 by Hong Becerra DO at OR [facility] Right: Shoulder [employer] 05/31/[address] / / [id number] documented as of this encounter Advance Directives Documents on File Type Date Recorded Patient Aerial Photographer Expl anation Advance Directives and Living Will 04/07/2005 Power of Strap Machine Operator Automatic 04/07/2005 * Full Code (Latest Code Status [...] 7:34 AM 04/07/2005 8:34 AM Care Teams Otr Owner Operator Relationship Specialty Start Date End Date Fercho Casper DO [address] [place] [address] PCP - General Family Medicine 11/14/16 documented as of this encounter
--- OUTSIDE RECORDS SUMMARY | 2024-09-30 16:28 | External Medical Summary | Summary of Care ---
Author Name Unknown Organization [facility] Address [address] [place] [address] Phone [phone] Care Team Providers Care Solutions Delivery Consultant Name Role Phone Zaid Arnold DO Primary Care Provider [phone] Reason for Visit * Reason Onset Date Comments Medication Refill 04/26/2024 Encounter Details Date Type Department Care Team (Late st Contact Info) Description 04/26/2024 Refill Family Practice [facility] [address] [facility] [place] [address] Zaid Arnold DO [address] [place] [address] Bilateral hip pain; SPINAL STENOSIS-LUMBAR Allergies Active [...] right knee 100 g 5 3 Active FLUoxetine HCl 40 MG Oral Capsule (PROzac)Indications :Depression, unspecified depression type take 1 capsule by mouth daily 90 Capsule 2 4 Active FLUoxetine HCl 20 MG Oral Capsule (PROzac)Indications :Dysthymia take 1 capsule by mouth every morning 90 Capsule 2 4 Active buPROPion HCl ER (XL) 150 MG Oral Tablet Extended Release 24 Hour (Wellbutrin XL) take 1 tablet by mouth every morning 30 Tablet 5 4 Active OneTouch Ultra In Vitro Strip (Glucose Blood) Use to test blood sugar up to 4 times daily. Dx E11.9 100 Strip 5 4 Active Clopidogrel Bisulfate 75 MG Oral Tablet (pLAVix)Indications :Left pontine cerebrovascular accident (HCC) take 1 tablet by mouth every morning 90 Tablet 2 4 Active Albuterol Sulfate HFA 108 (90 Base) MCG/ACT Inhalation Aerosol SolutionIndications :Wheezing inhale 2 puffs by mouth every 4 hours if needed for wheezing 18 g 5 4 Active traZODone HCl 50 MG Oral Tablet (Desyrel) Take 1 Tablet by mouth at bedtime. 90 Tablet 1 4 Active Atorvastatin Calcium 40 MG Oral [...] the morning. 90 Capsule 3 4 Active Pantoprazole Sodium 40 MG Oral Tablet Delayed Release (Protonix) TAKE 1 TABLET BY MOUTH EVERY MORNING AND 1 TABLET BEFORE BEDTIME 60 Tablet 5 4 Active Losartan Potassium 25 MG Oral Tablet (Cozaar)Indications :HTN, goal below 140/90 Take 1 Tablet by mouth in the morning. In the morning.. 90 Tablet 2 4 Active traMADol HCl 50 MG Oral Tablet (Ultram)Indications :Bilateral hip pain,Spinal stenosis of lumbar region without neurogenic claudication Take 1 Tablet by mouth every 6 hours as needed for Pain, Severe. 60 Tablet 2 4 Active busPIRone HCl 5 MG Oral Tablet (Buspar) Take 1 Tablet by mouth daily at noon. 30 Tablet 5 4 Active LORazepam 1 MG Oral Tablet (Ativan) Take 1 tablet by mouth BEFORE BEDTIME if needed for anxiety 30 Tablet 2 4 Active documented as of this encounter (statuses [...] 2014 - AHI 20.9, desats 29 mins [facility] 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 History [...] Assessment Author No 11/17/2017 6:28 PM ELISAT Melgar, J ulia R, RN * Do you have serious difficulty [...] encounter Miscellaneous Notes * Telephone Encounter - Elpidio Kellogg RPh - 04/27/2024 11:51 AM EST Refused Prescriptions: Disp Refills traMADol HCl 50 MG Oral Tablet (Ultram) 60 Tab*2 Sig: Take 1 Tablet by mouth every 6 hours as needed for Pain, Severe.Refused By: ELPIDIO KELLOGG for Refusal: Too soon documented in this encounter Plan of Treatment Upcoming Encounters Date Type Department Care Team (Late st Contact Info) Description 05/24/2024 9:20 AM EST Office Visit Family Practice [facility] [place] [address] [place] [address] Zaid Arnold, DO [address] [place] [address] Scheduled Procedures Name Priority Associated Diagnoses Date/Ti [...] this encounter Medical Devices Implanted Type Area Plant Clerk Device Identifier Shelf Expiration Date Model / Serial / Lot Graft Bifur [id number] - [id number] - [id number] Implanted:Qty: 1 on 07/20/2017 [place] [facility] [place] Aorta [employer] : VASCULAR 03/31/2019 [id number] / [id number] / Limb Contralat [id number] - [id number] - [id number] Implanted:Qty: 1 on 07/20/2017 [place] [facility] [place]: Aorta [employer] : VASCULAR 04/27/2019 [id number] 124E / [id number] / Aequalis Perform Cortiloc Pegged Glenoid Implanted:Qty: 1 on 11/17/2017 by Hong Becerra DO at OR [facility] Right: Shoulder [employer] 08/09/2020 [id number] / [id number] / Cement Bone Simplex Hv & G - [id number] Implanted:Qty: 1 on 11/17/2017 by Hong Becerra DO at OR [facility] Right: Shoulder JARED : ORTHOPAEDICS 12/29/2018 6195-1-01 0 / / [id number] Y Flex Shoulder System Aequalis Humeral Head 52mm 19mm Implanted:Qty: 1 on 11/17/2017 by Hong Becerra DO at OR [facility] Right: Shoulder [employer] 06/10/2022 [id number] / [id number] / Standard Ptc Humeral Stem Implanted:Qty: 1 on 11/17/2017 by Hong Becerra DO at OR [facility] Right: Shoulder [employer] 04/10/2021 [id number] / [id number] / [place] Suture Biocomposite - [id number] Implanted:Qty: 2 on 11/17/2017 by Hong Becerra DO at OR [facility] Right: Shoulder [employer] 10/29/2018 AR-2324BC C / / [id number] Sut [place] Biocomp 4.75mm Min5 - [id number] Implanted:Qty: 1 on 11/17/2017 by Hong Becerra DO at OR [facility] Right: Shoulder [employer] 05/31/[address] / / [id number] documented as of this encounter Visit Diagnoses Diagnosis Bilateral hip pain Pain in joint, pelvic region and thigh SPINAL STENOSIS-LUMBAR Spinal stenosis, lumbar region, without neurogenic claudication documented in this encounter Advance Directives Documents on File Type Date Recorded 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
[2024-09-30 17:55] LABS: Appearance Urine Clear (Clear); Bacteria Urine Automated None Seen (None Seen); Bilirubin Urine Negative (Negative); Blood Urine Negative (Negative); Cast Urine Automated 0-2 /lpf (0-2); Color Urine Yellow; Epithelial Cell Urine Auto 0-2 /hpf (0-2); Glucose Urine UA Negative (Negative); Ketones Urine Trace (Negative); Leukocyte Esterase Urine Negative (Negative); Nitrite Urine Negative (Negative); Protein Urine Trace (Negative); RBC Urine Automated 0-2 /hpf (0-2); Specific Gravity Urine 1.019 (1.000-1.030); Urobilinogen Urine Negative (Negative); WBC Urine Automated 0-5 /hpf (0-5)
[2024-09-30] MEDS: LORazepam 2 MG/1 ML VIAL IV PRN (17:56)
[2024-09-30] MEDS: LORazepam 2 MG/1 ML VIAL IV ONE (18:08)
[2024-09-30] MEDS: GADOBUTROL 15ML VIAL IV ONE (18:33)
--- NOTE | 2024-09-30 18:58 | Magnetic Resonance Report ---
Technique: Multiple T1 and T2-weighted magnetic resonance images were obtained of the brain before and after the administration of intravenous gadolinium contrast Comparison is made to the CT of the brain dated 03/01/2022 and the prior MRI dated 05/26/2015 Findings: There is no sign of acute or old infarction with normal-appearing diffusion weighted images. There is cerebral atrophy, within expected limits for the patient's age. There are focal and confluent areas of increased T2 signal intensity within the periventricular white matter of the cerebral hemispheres bilaterally. This is most likely due to chronic small vessel ischemic disease. No mass lesion or other area of abnormal enhancement is seen. There is no intracranial hemorrhage or other fluid collection. No midline shift or other form of herniation is seen. There is no hydrocephalus. Normal flow-voids are seen within the arteries of the [id number]. The orbits and paranasal sinuses appear normal. The mastoid air cells appear clear. Impression: 1. Cerebral atrophy and chronic small vessel ischemic disease 2. No sign of infarction or mass lesion Electronically signed by Dre Gabriel 09-30-2024 6:57 PM
[2024-09-30] MEDS ORDERED: LORazepam 1 MG TAB PO PRN (20:10)
[2024-09-30] MEDS ORDERED: PHARMACIST DISCHARGE MED REC CONSULT PRN (20:10)
[2024-09-30] MEDS: traZODone HCL 50 MG TAB PO SCH (21:00)
[2024-09-30] MEDS: HEPARIN SOD 5,000 UNIT/0.5 ML VIAL SQ SCH (21:00)
[2024-09-30] MEDS: PANTOprazole 40 MG TAB PO SCH (21:00)
--- NOTE | 2024-09-30 22:31 | Ultrasound Report ---
Exam(s): US CAROTID EXAM: US Duplex Bilateral Extracranial Arteries CLINICAL HISTORY: Reason for exam: stroke like symptoms. TECHNIQUE: Real-time duplex ultrasound scan of the extracranial arteries integrating B-mode two-dimensional vascular structure, Doppler spectral analysis and color flow Doppler imaging. COMPARISON: None FINDINGS: Right common carotid artery: Unremarkable. No occlusion or significant stenosis on color flow and spectral Doppler imaging. Right internal carotid artery: Peak systolic velocity in the right ICA measures 141.4 cm/s. No occlusion or significant stenosis on color flow and spectral Doppler imaging. Right external carotid artery: Unremarkable. No occlusion or significant stenosis on color flow and spectral Doppler imaging. Right vertebral artery: Unremarkable. Antegrade flow. Right ICA/CCA ratio: Unremarkable. Within normal limits. Left common carotid artery: Unremarkable. No occlusion or significant stenosis on color flow and spectral Doppler imaging. Left internal carotid artery: Peak systolic velocity in the left ICA measures 82.0 cm/s. No occlusion or significant stenosis on color flow and spectral Doppler imaging. Left external carotid artery: Unremarkable. No occlusion or significant stenosis on color flow and spectral Doppler imaging. Left vertebral artery: Unremarkable. Antegrade flow. Left ICA/CCA ratio: Unremarkable. Within normal limits. Lymph nodes: Unremarkable. No lymphadenopathy. CAROTID STENOSIS REFERENCE USING IAC CRITERIA: Mild - <50% stenosis. ICA PSV is less than 180 cm/s and plaque or intimal thickening is visible. Moderate - 50-69% stenosis. ICA PSV is 180 to 230 cm/s and plaque is visible. Severe - 70-94% stenosis. ICA PSV is more than 230 cm/s and visible plaque with lumen narrowing is seen. Near occlusion - 95-99% stenosis. ICA PSV is variable and significant plaque with luminal narrowing is seen. Occluded - 100% stenosis. No flow identified. IMPRESSION: 1. No hemodynamically significant stenosis in either ICA. 2. Normal antegrade flow in bilateral vertebral arteries. Electronically signed by: Otto Rocha M.D. 09/30/24 22:31 PM
--- NOTE | 2024-09-30 23:06 | Electrocardiogram Report ---
Test Reason : Blood Pressure : */* mmHG Vent. Rate : 58 BPM Atrial Rate : 58 BPM P-R Int : 164 ms QRS Dur : 84 ms QT Int : 420 ms P-R-T Axes : 52 23 64 degrees QTcB Int : 412 ms Sinus bradycardia Otherwise normal ECG When compared with ECG of 01-Mar-2022 01:14, No significant change was found Confirmed by Jonathon Valverde ([id number]) on 09/30/2024 11:05:41 PM Referred By: Confirmed By: Jonathon Valverde
[2024-10-01] MEDS: ACETAMINOPHEN 325 MG TAB PO SCH (00:14)
[2024-10-01 06:18] LABS: Hematocrit (blood only) 42.8 % (42.0-52.0); Hemoglobin 14.4 g/dl (14.0-18.0); Mean Corpuscular Hemoglobin 30.5 pg (25.0-34.0); Mean Corpuscular Hgb Conc 33.6 g/dL (32.0-36.0); Mean Corpuscular Volume 90.7 fL (80.0-100.0); Mean Platelet Volume 10.3 fL (9.4-12.4); Platelet Count 200 K/uL (130-400); RDW Coefficient of Variation 12.9 % (11.5-14.5); RDW Standard Deviation 42.7 fL (36.4-46.3); Red Blood Count 4.72 M/uL (4.70-6.10); White Blood Count 6.87 K/ul (4.8-10.8)
[2024-10-01 06:40] LABS: BUN Creatinine Ratio 20.5 (10-20); Calcium 8.6 mg/dl (8.6-10.3); Creatinine Clr Calc Pharmacy 87.2 ml/min; Potassium 3.7 mmol/L (3.5-5.1)
[2024-10-01 06:55] LABS: Thyroid Stimulating Hormone 0.953 uIu/ml (0.300-4.500)
[2024-10-01] MEDS: ATORVASTATIN 40 MG TAB PO SCH (08:50)
[2024-10-01] MEDS: FLUoxetine HCL 20 MG CAP PO SCH ×2 (08:50)
[2024-10-01] MEDS: CLOPIDOGREL BISULFATE 75 MG TAB PO SCH (08:50)
[2024-10-01] MEDS: buPROPion XL 150 MG TABCR PO SCH (08:50)
[2024-10-01] MEDS: busPIRone 5 MG TAB PO SCH (12:00)
--- NOTE | 2024-10-01 13:17 | Neurology Consultation ---
Date of Consultation October 01, 2024 Assessment & Plan (1) Stroke-like symptoms: Recommend continued work up to include the following: CTA head & neck Echocardiogram as part of complete stroke workup Continue frequent neurological assessments Obtain stat CT brain without contrast for any acute neurological decline Continue to monitor/control blood pressure & blood glucose Continue to monitor telemetry closely Recommend ZioPatch at DC if no evidence of arrhythmia during inpatient monitoring Continue to monitor renal and hepatic function, keep euvolemic Metabolic workup should include hgbA1c, fasting lipids Recommend DAPT for at least 3 weeks Recommend high dose statin therapy indefinitely if tolerated Ok from neurology perspective for VTE prophylaxis PT/OT/SLT to eval and treat Recommend eval for CHARLES and consider outpatient polysomnography (2) Confusion: Continue to monitor mentation Monitor for symptoms of polypharmacy Continue follow with Psychiatry Telehealth Consultation Telehealth Information Telehealth Information: I performed this visit using a real-time telehealth connection between my location and the patients location ([facility]). After con necting through interactive tele-video, patient was identified by name and date of and/or wristband check.Patient (or authorized healthcare account service representative) was informed that this was a telemedicine visit and it was being conducted confidentially over secure lines. My office door was closed and no one else was present in the room with me.Patient (or authorized healthcare account service representative) provided consent to proceed with the visit, expressed an understanding of privacy and security of the telemedicine visit, and gave permission to have a hospital account service representative in the room in order to assist with the visit and to conduct portions of the visit, as needed. I informed the patient (or authorized healthcare account service representative) that I reviewed their record and presented the opportunity for them to ask any questions regarding the visit today. The patient agreed to participate. History of Present Illness Reason for Consultation: Stroke like symptoms Requesting Physician: Dr. Brock Attending Physician: Tamica Brock MD History of Present Illness 74yo right handed male presented after he reports falling at the end of his driveway. He presented yesterday due to reporting confusion right sided weakness slurred speech and dizziness after fall on Thursday. He has a hx of stroke, HTN, DM, dyslipidemia. He reports now that he has right sided weakness for at least 3 weeks. he has undergone MRI brain revealing no overt evidence of acute ischemic stroke. I have performed televideo consultation. He is awake and able to answer most questions appropriately, name objects on televideo monitor, repeat phrases and perform complex/embedded commands without deficit. He is able to move all extremities. Reports painful ROM of RLE >RUE. There is no facial asymmetry. Allergies Allergy/AdvReac Type Severity Reaction Status Date / Time latex Allergy Intermediate Rash Verified 09/30/24 15:44 tetracycline Allergy Intermediate RASH Verified 09/30/24 15:44 Home Medications Medication Instructions Recorded Confirmed Type albuterol sulfate 90 mcg/actuation 2 puff inhalation Q4 PRN Wheezing 09/08/21 09/30/24 History aerosol inhaler atorvastatin 40 mg tablet 40 mg PO DAILY 09/08/21 09/30/24 History bupropion HCl 150 mg 24 hr tablet, 150 mg PO DAILY 09/08/21 09/30/24 History extended release calcium carbonate 500 mg PO DIRECTED PRN 09/08/21 09/30/24 History HEARTBURN/INDIGESTION clopidogrel 75 mg tablet 75 mg PO QAM 09/08/21 09/30/24 History fluoxetine 20 mg capsule 20 mg PO DAILY 09/08/21 09/30/24 History fluoxetine 40 mg capsule 40 mg PO DAILY 09/08/21 09/30/24 History lorazepam 1 mg tablet 1 mg PO HS PRN Anxiety/insomnia 09/08/21 09/30/24 History hvjqfoxh-mdw-cvrrk acid 0.4 1 tab PO DAILY 09/08/21 09/30/24 History mg-lycopene 300 mcg-lutein 250 mcg tablet (Centrum Silver) rizatriptan 10 mg tablet 10 mg PO UD PRN Migraine Headache 09/08/21 09/30/24 History tramadol 50 mg tablet 50 mg PO Q6 PRN Pain, Severe 09/08/21 09/30/24 History pantoprazole 40 mg tablet,delayed 40 mg PO BID #60 tabs 09/20/21 09/30/24 Rx release acetaminophen 650 mg 1,300 mg PO BID 09/30/24 09/30/24 History tablet,extended release (Tylenol 8 Hour) buspirone 5 mg tablet 5 mg PO QDL 09/30/24 09/30/24 History diclofenac sodium 1 % topical gel 2 g topical BID 09/30/24 09/30/24 History food supplemt, lactose-reduced 1 ea PO BID 09/30/24 09/30/24 History losartan 25 mg tablet 25 mg PO DAILY 09/30/24 09/30/24 History olanzapine 2.5 mg tablet 2.5 mg PO DAILY 09/30/24 09/30/24 History propranolol 80 mg capsule,24 80 mg PO DAILY 09/30/24 09/30/24 History hr,extended release trazodone 50 mg tablet 50 mg PO HS 09/30/24 09/30/24 History Patient History Medical History (Updated 10/01/24 @ 13:31 by Ar Sánchez DO) AAA (abdominal aortic aneurysm) without rupture Obstructive sleep apnea on CPAP Left pontine CVA Hip pain Pancreatitis Encounter for pre-operative examination Abdominal pain Duodenal ulcer Acute blood loss anemia Acute upper GI bleed Gastric outlet obstruction Abdominal pain, acute, epigastric Nausea & vomiting Syncope and collapse H/O asbestos exposure H/O restrictive lung disease History of CVA (cerebrovascular accident) "05/2015", no residual deficit H/O migraine with aura History of tobacco abuse Slurred speech DJD (degenerative joint disease) DJD (degenerative joint disease), multiple sites Surgical History History of AAA (abdominal aortic aneurysm) repair History of right hip replacement "01/2015" History of lumbar laminectomy "2000,2001,2004,2006" History of colonoscopy Social History (Updated 09/30/24 @ 17:41 by DARNELL Oliveira) Smoking Status: Former smoker Smoking End Date: years ago; Second Hand Exposure: No; Hx Alcohol Use: No Hx Substance Use: No Preferred Language: [employer] Required: No Beliefs That Will Affect Care: None Current Living Situation: Spouse Current Living Situation Comment: Lives w/ Feels Safe at Home: Yes Assistive Devices: Cane, Glasses, Hearing Aid - Bilateral and Walker Physical Exam Neurological Examination: Mental Status: Awake, oriented to person, place, and most of situation There is noted dysarthria Fluency naming repetition and comprehension appear grossly intact. Affect remains appropriate. CN testing: I: Deferred II:Reports no changes in visual acuity III/IV/: No evidence of gaze preference, hippus, nystagmus or roving eye movements V: Facial sensation reportedly grossly intact to light touch bilaterally VII: Facial movements appear without evidence of asymmetry VIII: Hearing appears grossly intact to loud voice bilaterally IX/X: Palate is unable to be accurately assessed XI: Shoulder shrug appears symmetric/ grossly intact bilaterally XII: Tongue protrudes midline without evidence of biting Motor exam: Strength appears grossly intact/symmetric in all extremities Limited ROM RLE>RUE -reportedly due to pain Sensory: Sensation is reportedly grossly intact throughout Coordination: No apparent evidence of dysmetria or dysdiadochokinesia Reflexes: Deferred Gait: Deferred Results & Data Vital Signs (Past 12 Hours) Vital Signs Temp Pulse Pulse Resp BP Pulse Ox O2 Del Method 10/01/24 12:29 36.4 C L 62 16 132/72 93 Room Air 10/01/24 08:04 36.7 C 57 L 20 150/77 H 95 Room Air 10/01/24 07:50 59 L 10/01/24 02:45 36.4 C L 57 L 18 152/75 H 96 Room Air Laboratory Results Abnormal lab results 09/30/24 09/30/24 10/01/24 Range/Units 13:38 17:45 05:39 BUN/Creatinine Ratio 27.0 H 20.5 H (10-20) Glucose 64 L (70-99(Fasting)) mg/dl Urine Protein Trace H (Negative) Urine Ketones Trace H (Negative) Diagnostic Findings Brain MRI 09/30/24 16:56 Technique: Multiple T1 and T2-weighted magnetic resonance images were obtained of the brain before and after the administration of intravenous gadolinium contrast Comparison is made to the CT of the brain dated 03/01/2022 and the prior MRI dated 05/26/2015 Findings: There is no sign of acute or old infarction with normal-appearing diffusion weighted images. There is cerebral atrophy, within expected limits for the patient's age. There are focal and confluent areas of increased T2 signal intensity within the periventricular white matter of the cerebral hemispheres bilaterally. This is most likely due to chronic small vessel ischemic disease. No mass lesion or other area of abnormal enhancement is seen. There is no intracranial hemorrhage or other fluid collection. No midline shift or other form of herniation is seen. There is no hydrocephalus. Normal flow-voids are seen within the arteries of the tyrwsq-ch-Fqnjwv. The orbits and paranasal sinuses appear normal. The mastoid air cells appear clear. Impression: 1. Cerebral atrophy and chronic small vessel ischemic disease 2. No sign of infarction or mass lesion Electronically signed by Dre Gabriel 09-30-2024 6:57 PM Carotid Doppler Study 09/30/24 17:09 Exam(s): US CAROTID EXAM: US Duplex Bilateral Extracranial Arteries CLINICAL HISTORY: Reason for exam: stroke like symptoms. TECHNIQUE: Real-time duplex ultrasound scan of the extracranial arteries integrating B-mode two-dimensional vascular structure, Doppler spectral analysis and color flow Doppler imaging. COMPARISON: None FINDINGS: Right common carotid artery: Unremarkable. No occlusion or significant stenosis on color flow and spectral Doppler imaging. Right internal carotid artery: Peak systolic velocity in the right ICA measures 141.4 cm/s. No occlusion or significant stenosis on color flow and spectral Doppler imaging. Right external carotid artery: Unremarkable. No occlusion or significant stenosis on color flow and spectral Doppler imaging. Right vertebral artery: Unremarkable. Antegrade flow. Right ICA/CCA ratio: Unremarkable. Within normal limits. Left common carotid artery: Unremarkable. No occlusion or significant stenosis on color flow and spectral Doppler imaging. Left internal carotid artery: Peak systolic velocity in the left ICA measures 82.0 cm/s. No occlusion or significant stenosis on color flow and spectral Doppler imaging. Left external carotid artery: Unremarkable. No occlusion or significant stenosis on color flow and spectral Doppler imaging. Left vertebral artery: Unremarkable. Antegrade flow. Left ICA/CCA ratio: Unremarkable. Within normal limits. Lymph nodes: Unremarkable. No lymphadenopathy. CAROTID STENOSIS REFERENCE USING IAC CRITERIA: Mild - <50% stenosis. ICA PSV is less than 180 cm/s and plaque or intimal thickening is visible. Moderate - 50-69% stenosis. ICA PSV is 180 to 230 cm/s and plaque is visible. Severe - 70-94% stenosis. ICA PSV is more than 230 cm/s and visible plaque with lumen narrowing is seen. Near occlusion - 95-99% stenosis. ICA PSV is variable and significant plaque with luminal narrowing is seen. Occluded - 100% stenosis. No flow identified. IMPRESSION: 1. No hemodynamically significant stenosis in either ICA. 2. Normal antegrade flow in bilateral vertebral arteries. Electronically signed by: Otto Rocha M.D. 09/30/24 22:31 PM Medications Administered Home Medications Medication Instructions Recorded Confirmed Last Taken albuterol sulfate 90 mcg/actuation 2 puff inhalation Q4 PRN Wheezing 09/08/21 09/30/24 Unknown aerosol inhaler atorvastatin 40 mg tablet 40 mg PO DAILY 09/08/21 09/30/24 09/30/24 bupropion HCl 150 mg 24 hr tablet, 150 mg PO DAILY 09/08/21 09/30/24 09/30/24 extended release calcium carbonate 500 mg PO DIRECTED PRN 09/08/21 09/30/24 Unknown HEARTBURN/INDIGESTION clopidogrel 75 mg tablet 75 mg PO QAM 09/08/21 09/30/24 09/30/24 fluoxetine 20 mg capsule 20 mg PO DAILY 09/08/21 09/30/24 09/30/24 fluoxetine 40 mg capsule 40 mg PO DAILY 09/08/21 09/30/24 09/30/24 lorazepam 1 mg tablet 1 mg PO HS PRN Anxiety/insomnia 09/08/21 09/30/24 09/29/24 fklztsmg-lqq-mdvwe acid 0.4 1 tab PO DAILY 09/08/21 09/30/24 09/30/24 mg-lycopene 300 mcg-lutein 250 mcg tablet (Centrum Silver) rizatriptan 10 mg tablet 10 mg PO UD PRN Migraine Headache 09/08/21 09/30/24 Unknown tramadol 50 mg tablet 50 mg PO Q6 PRN Pain, Severe 09/08/21 09/30/24 Unknown pantoprazole 40 mg tablet,delayed 40 mg PO BID #60 tabs 09/20/21 09/30/24 09/30/24 08:00 release acetaminophen 650 mg 1,300 mg PO BID 09/30/24 09/30/24 09/30/24 08:00 tablet,extended release (Tylenol 8 Hour) buspirone 5 mg tablet 5 mg PO QDL 09/30/24 09/30/24 09/30/24 diclofenac sodium 1 % topical gel 2 g topical BID 09/30/24 09/30/24 09/30/24 08:00 food supplemt, lactose-reduced 1 ea PO BID 09/30/24 09/30/24 09/30/24 08:00 losartan 25 mg tablet 25 mg PO DAILY 09/30/24 09/30/24 09/30/24 08:00 olanzapine 2.5 mg tablet 2.5 mg PO DAILY 09/30/24 09/30/24 09/30/24 propranolol 80 mg capsule,24 80 mg PO DAILY 09/30/24 09/30/24 09/30/24 hr,extended release trazodone 50 mg tablet 50 mg PO HS 09/30/24 09/30/24 09/29/24 Active Medications Generic Name Dose Route Start Last Admin Trade Name Amy PRN Reason Stop Dose Admin Acetaminophen 650 mg 10/01/24 00:00 10/01/24 05:43 Acetaminophen 325 Mg Tab PO 10/31/24 00:00 650 mg Q6 SHERIE Administration Atorvastatin Calcium 40 mg 10/01/24 09:00 10/01/24 08:50 Atorvastatin 40 Mg Tab PO 10/31/24 08:59 40 mg DAILY SHERIE Administration Bupropion HCl 150 mg 10/01/24 09:00 10/01/24 08:50 Bupropion Xl 150 Mg Tabcr PO 10/31/24 08:59 150 mg DAILY SHERIE Administration Clopidogrel Bisulfate 75 mg 10/01/24 09:00 10/01/24 08:50 Clopidogrel Bisulfate 75 Mg Tab PO 10/31/24 08:59 75 mg QAM SHERIE Administration Fluoxetine HCl 40 mg 10/01/24 09:00 10/01/24 08:50 Fluoxetine Hcl 20 Mg Cap PO 10/31/24 08:59 40 mg DAILY SHERIE Administration Fluoxetine HCl 20 mg 10/01/24 09:00 10/01/24 08:50 Fluoxetine Hcl 20 Mg Cap PO 10/31/24 08:59 20 mg DAILY SHERIE Administration Heparin Sodium (Porcine) 5,000 units 09/30/24 21:00 10/01/24 08:55 Heparin Sod 5,000 Unit/0.5 Ml Vial SQ 10/30/24 20:59 5,000 units Q12 SHERIE Administration Lorazepam 0.5 mg 09/30/24 17:15 09/30/24 17:56 Lorazepam 2 Mg/1 Ml Vial IV 10/30/24 17:14 0.5 mg ONE PRN Administration Anxiety (PRIOR TO MRI) Pantoprazole Sodium 40 mg 09/30/24 21:00 10/01/24 08:50 Pantoprazole 40 Mg Tab PO 10/30/24 20:59 40 mg BID SHERIE Administration Trazodone HCl 50 mg 09/30/24 21:00 09/30/24 21:00 Trazodone Hcl 50 Mg Tab PO 10/30/24 20:59 50 mg HS SHERIE Administration
--- NOTE | 2024-10-01 13:37 | Hospitalist Progress Note ---
Date of Service October 01, 2024 Assessment & Plan (1) Right sided weakness: (2) Confusion: (3) Dizziness: (4) Depression: (5) HTN (hypertension): (6) Dyslipidemia: (7) Diabetes mellitus, type II: (8) COPD (chronic obstructive pulmonary disease): (9) Migraine: Plan 74 year old male with PMH significant for DMII, HTN, HLD, COPD, migraine, depression, and history of L pontine stroke who presented to the ED today with confusion, right sided weakness, and slurred speech who is being admitted for a stroke workup. Right sided weakness History of L pontine CVA Patient with weakness in RUE and RLE Unknown if this is related to previous L pontine stroke or new weakness Stroke workup: Head CT negative negative for acute stroke MRI w/wo contrast negative for acute stroke Carotid duplex bilateral without significant stenosis Echo with EF 60-65%, Grade I diastolic dysfunction, no ASD, no shunt, borderline aortic root dilation A1C 5.9 on 09/06/24 per records Lipid panel: Chol 120 LDL 53 HDL 42 Tri 124 on 09/06/2024 per records PT/OT/ST consults Neuro checks q4hr Consult neurology - appreciate recs -Continue plavix and atorvastatin -CTA head and neck -add aspirin 81mg daily for 3 weeks -Neurology f/u concerned about recent injury to right thigh with noted weakness- further imaging of area ordered as well Continue to monitor Acute Encephalopathy Possible underlying dementia Could be due to stroke, post-fall concussion, declining neurocognitive function, polypharmacy Patient seen by Neurology Dr. Holm outpatient with workup ongoing (EEG negative for epilepsy per records) and follow up appointment scheduled for 01/23/2025 notes family hx of parkinsons for the pt Head CT negative Labs unremarkable CXR negative No signs of infection UA unremarkable TSH normal vitamin B12 normal lyme screen negative Delirium precautions. Frequent reorientation, avoid sedating medications as able Continue to monitor Dizziness Could be due to stroke, post-fall concussion, polypharmacy Orthostatics overnight with noted significant drop in systolic BP from 180 to 110 Pt currently being worked up for dementia, fam hx of parkinsons, question of associated autonomic dysfunction? 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 PCP: Dr Zaid Arnold DO Admission and Anticipated Discharge Date Admission Date: September 30, 2024 Subjective pt was seen with his at bedside AAOx3 but with difficulty notes he has chronic memory issues at baseline, notes he is still not back to baseline with his speech and weakness Review of Systems Review of Systems: All systems reviewed & are unremarkable except as noted in Subjective Physical Exam Physical Exam: General: Alert, orientedx3. No acute distress Neuro: right sided weakness in right thigh, leg and foot. No visible muscle wasting to right thigh, no noted bruises. Otherwise CNII-XII grossly intact HEENT: NC/AT CV: RRR Resp: Breath sounds clear bilaterally, no increased effort of breathing Abdomen: Soft, nontender Extremities: No edema in lower extremities bilaterally. Results & Data Results & Data Vital Signs (Past 12 Hours) Vital Signs Temp Pulse Pulse Resp BP Pulse Ox O2 Del Method 10/01/24 12:29 36.4 C L 62 16 132/72 93 Room Air 10/01/24 08:04 36.7 C 57 L 20 150/77 H 95 Room Air 10/01/24 07:50 59 L 10/01/24 02:45 36.4 C L 57 L 18 152/75 H 96 Room Air Diagnostic Findings Chest X-Ray 09/30/24 12:30 XR chest 1V not portable HISTORY: 74 years-old Male stroke alert acute stroke like symptoms COMPARISON: 09/12/2021 TECHNIQUE: PA view of the chest FINDINGS: Cardiomediastinal and hilar silhouettes are within normal limits. No pneumothorax, pleural effusion or airspace consolidation. Right shoulder arthroplasty. Partially imaged lumbar spinal fusion hardware. IMPRESSION: No acute process. ACT 112: Negative or not required by law. The above report was generated using voice recognition software. It may contain grammatical, syntax or spelling errors. Electronically signed by: Uli Whitman M.D. 09/30/2024 1:[address] 09/30/24 12:30 CT SCAN OF THE BRAIN WITHOUT IV CONTRAST CLINICAL HISTORY: Fall. Right-sided weakness. COMPARISON STUDY: MRI of the brain May 26, 2015. Head CT March 01, 2022. TECHNIQUE: Unenhanced axial CT scan of the brain was performed from the vertex to the skull base. A dose lowering technique was utilized adhering to the principles of ALARA. CT DOSE: 625.8 mGy.cm FINDINGS: Brain parenchyma: No acute intracranial hemorrhage, midline shift or mass effect is present. Ha-white matter differentiation is preserved. There are no extra- axial fluid collections. There are no findings to suggest acute dural sinus thrombosis or acute territorial infarct. White matter hypodensities favor small vessel disease. Ventricles, sulci, cisterns: The ventricular system is stable. The basal cisterns are patent. Calvarium: Unremarkable. Sinuses and mastoids: The visualized paranasal sinuses are clear. The mastoid air cells are well pneumatized. Orbits: The bony orbits are grossly intact. IMPRESSION: 1. No acute intracranial findings. 2. No calvarial fractures. ACT 112: Negative or not required by law. Electronically signed by: Uli Hernandez M.D. 09/30/2024 1:24 PM Brain MRI 09/30/24 16:56 Technique: Multiple T1 and T2-weighted magnetic resonance images were obtained of the brain before and after the administration of intravenous gadolinium contrast Comparison is made to the CT of the brain dated 03/01/2022 and the prior MRI dated 05/26/2015 Findings: There is no sign of acute or old infarction with normal-appearing diffusion weighted images. There is cerebral atrophy, within expected limits for the patient's age. There are focal and confluent areas of increased T2 signal intensity within the periventricular white matter of the cerebral hemispheres bilaterally. This is most likely due to chronic small vessel ischemic disease. No mass lesion or other area of abnormal enhancement is seen. There is no intracranial hemorrhage or other fluid collection. No midline shift or other form of herniation is seen. There is no hydrocephalus. Normal flow-voids are seen within the arteries of the [id number]-[id number]-Mqlzno. The orbits and paranasal sinuses appear normal. The mastoid air cells appear clear. Impression: 1. Cerebral atrophy and chronic small vessel ischemic disease 2. No sign of infarction or mass lesion Electronically signed by Dre Gabriel 09-30-2024 6:57 PM Carotid Doppler Study 09/30/24 17:09 Exam(s): US CAROTID EXAM: US Duplex Bilateral Extracranial Arteries CLINICAL HISTORY: Reason for exam: stroke like symptoms. TECHNIQUE: Real-time duplex ultrasound scan of the extracranial arteries integrating B-mode two-dimensional vascular structure, Doppler spectral analysis and color flow Doppler imaging. COMPARISON: None FINDINGS: Right common carotid artery: Unremarkable. No occlusion or significant stenosis on color flow and spectral Doppler imaging. Right internal carotid artery: Peak systolic velocity in the right ICA measures 141.4 cm/s. No occlusion or significant stenosis on color flow and spectral Doppler imaging. Right external carotid artery: Unremarkable. No occlusion or significant stenosis on color flow and spectral Doppler imaging. Right vertebral artery: Unremarkable. Antegrade flow. Right ICA/CCA ratio: Unremarkable. Within normal limits. Left common carotid artery: Unremarkable. No occlusion or significant stenosis on color flow and spectral Doppler imaging. Left internal carotid artery: Peak systolic velocity in the left ICA measures 82.0 cm/s. No occlusion or significant stenosis on color flow and spectral Doppler imaging. Left external carotid artery: Unremarkable. No occlusion or significant stenosis on color flow and spectral Doppler imaging. Left vertebral artery: Unremarkable. Antegrade flow. Left ICA/CCA ratio: Unremarkable. Within normal limits. Lymph nodes: Unremarkable. No lymphadenopathy. CAROTID STENOSIS REFERENCE USING IAC CRITERIA: Mild - <50% stenosis. ICA PSV is less than 180 cm/s and plaque or intimal thickening is visible. Moderate - 50-69% stenosis. ICA PSV is 180 to 230 cm/s and plaque is visible. Severe - 70-94% stenosis. ICA PSV is more than 230 cm/s and visible plaque with lumen narrowing is seen. Near occlusion - 95-99% stenosis. ICA PSV is variable and significant plaque with luminal narrowing is seen. Occluded - 100% stenosis. No flow identified. IMPRESSION: 1. No hemodynamically significant stenosis in either ICA. 2. Normal antegrade flow in bilateral vertebral arteries. Electronically signed by: Otto Rocha M.D. 09/30/24 22:31 PM
--- NOTE | 2024-10-01 13:38 | Neurology Consultation ---
Date of Consultation October 01, 2024 Telehealth Consultation Telehealth Information Telehealth Information: I performed this visit using a real-time telehealth connection between my location and the patients location ([facility]). After connecting through interactive tele-video, patient was identified by name and date of and/or wristband check.Patient (or authorized healthcare pharmacy services representative) was informed that this was a telemedicine visit and it was being conducted confidentially over secure lines. My office door was closed and no one else was present in the room with me.Patient (or authorized healthcare pharmacy services representative) provided consent to proceed with the visit, expressed an understanding of privacy and security of the telemedicine visit, and gave permission to have a hospital pharmacy services representative in the room in order to assist with the visit and to conduct portions of the visit, as needed. I informed the patient (or authorized healthcare pharmacy services representative) that I reviewed their record and presented the opportunity for them to ask any questions regarding the visit today. The patient agreed to participate. History of Present Illness Reason for Consultation: Stroke Like Symptoms Attending Physician: Tamica Brock MD Allergies Allergy/AdvReac Type Severity Reaction Status Date / Time latex Allergy Intermediate Rash Verified 09/30/24 15:44 tetracycline Allergy Intermediate RASH Verified 09/30/24 15:44 Home Medications Medication Instructions Recorded Confirmed Type albuterol sulfate 90 mcg/actuation 2 puff inhalation Q4 PRN Wheezing 09/08/21 09/30/24 History aerosol inhaler atorvastatin 40 mg tablet 40 mg PO DAILY 09/08/21 09/30/24 History bupropion HCl 150 mg 24 hr tablet, 150 mg PO DAILY 09/08/21 09/30/24 History extended release calcium carbonate 500 mg PO DIRECTED PRN 09/08/21 09/30/24 History HEARTBURN/INDIGESTION clopidogrel 75 mg tablet 75 mg PO QAM 09/08/21 09/30/24 History fluoxetine 20 mg capsule 20 mg PO DAILY 09/08/21 09/30/24 History fluoxetine 40 mg capsule 40 mg PO DAILY 09/08/21 09/30/24 History lorazepam 1 mg tablet 1 mg PO HS PRN Anxiety/insomnia 09/08/21 09/30/24 History gfufyhiy-qpj-qzgim acid 0.4 1 tab PO DAILY 09/08/21 09/30/24 History mg-lycopene 300 mcg-lutein 250 mcg tablet (Centrum Silver) rizatriptan 10 mg tablet 10 mg PO UD PRN Migraine Headache 09/08/21 09/30/24 History tramadol 50 mg tablet 50 mg PO Q6 PRN Pain, Severe 09/08/21 09/30/24 History pantoprazole 40 mg tablet,delayed 40 mg PO BID #60 tabs 09/20/21 09/30/24 Rx release acetaminophen 650 mg 1,300 mg PO BID 09/30/24 09/30/24 History tablet,extended release (Tylenol 8 Hour) buspirone 5 mg tablet 5 mg PO QDL 09/30/24 09/30/24 History diclofenac sodium 1 % topical gel 2 g topical BID 09/30/24 09/30/24 History food supplemt, lactose-reduced 1 ea PO BID 09/30/24 09/30/24 History losartan 25 mg tablet 25 mg PO DAILY 09/30/24 09/30/24 History olanzapine 2.5 mg tablet 2.5 mg PO DAILY 09/30/24 09/30/24 History propranolol 80 mg capsule,24 80 mg PO DAILY 09/30/24 09/30/24 History hr,extended release trazodone 50 mg tablet 50 mg PO HS 09/30/24 09/30/24 History Patient History Medical History (Updated 10/01/24 @ 13:31 by Ar Sánchez DO) AAA (abdominal aortic aneurysm) without rupture Obstructive sleep apnea on CPAP Left pontine CVA Hip pain Pancreatitis Encounter for pre-operative examination Abdominal pain Duodenal ulcer Acute blood loss anemia Acute upper GI bleed Gastric outlet obstruction Abdominal pain, acute, epigastric Nausea & vomiting Syncope and collapse H/O asbestos exposure H/O restrictive lung disease History of CVA (cerebrovascular accident) "05/2015", no residual deficit H/O migraine with aura History of tobacco abuse Slurred speech DJD (degenerative joint disease) DJD (degenerative joint disease), multiple sites Surgical History History of AAA (abdominal aortic aneurysm) repair History of right hip replacement "01/2015" History of lumbar laminectomy "2000,2001,2004,2006" History of colonoscopy Social History (Updated 09/30/24 @ 17:41 by DARNELL Oliveira) Smoking Status: Former smoker Smoking End Date: years ago; Second Hand Exposure: No; Hx Alcohol Use: No Hx Substance Use: No Preferred Language: Danish Clinical Research Monitor Required: No Beliefs That Will Affect Care: None Current Living Situation: Spouse Current Living Situation Comment: Lives w/ Feels Safe at Home: Yes Assistive Devices: Cane, Glasses, Hearing Aid - Bilateral and Walker Results & Data Vital Signs (Past 12 Hours) Vital Signs Temp Pulse Pulse Resp BP Pulse Ox O2 Del Method 10/01/24 12:29 36.4 C L 62 16 132/72 93 Room Air 10/01/24 08:04 36.7 C 57 L 20 150/77 H 95 Room Air 10/01/24 07:50 59 L 10/01/24 02:45 36.4 C L 57 L 18 152/75 H 96 Room Air
--- NOTE | 2024-10-01 15:25 | Communication Note ---
Date of Service: October 01, 2024 74 year old male with PMH significant for DMII, HTN, HLD, COPD, migraine, depression, and history of L pontine stroke. Pt presented with confusion, right sided weakness, and slurred speech. Pt has been evaluated by Neurology. Psych review of medication requested in light of polypharmacy possibly contributing to his confusion. Pt was recently started on Olanzapine for skin-picking disorder. This medication was held by the primary team. Workup thus far: Patient seen by Neurology Dr. Holm outpatient with workup ongoing (EEG negative for epilepsy per records) and follow up appointment scheduled for 01/23/[address] negative Labs unremarkable including CBC, CMP, mag CXR negative No signs of infection UA pending TSH, vitamin B12, lyme screen pending Home medication: bupropion HCl 150 mg 24 hr tablet, 150 mg PO DAILY 09/08/21 09/30/24 History extended release calcium carbonate 500 mg PO DIRECTED PRN 09/08/21 09/30/24 History HEARTBURN/INDIGESTION clopidogrel 75 mg tablet 75 mg PO QAM 09/08/21 09/30/24 History fluoxetine 20 mg capsule 20 mg PO DAILY 09/08/21 09/30/24 History fluoxetine 40 mg capsule 40 mg PO DAILY 09/08/21 09/30/24 History lorazepam 1 mg tablet 1 mg PO HS PRN Anxiety/insomnia 09/08/21 09/30/24 History ybuxvgkk-goh-kfysa acid 0.4 1 tab PO DAILY 09/08/21 09/30/24 History mg-lycopene 300 mcg-lutein 250 mcg tablet (Centrum Silver) rizatriptan 10 mg tablet 10 mg PO UD PRN Migraine Headache 09/08/21 09/30/24 History tramadol 50 mg tablet 50 mg PO Q6 PRN Pain, Severe 09/08/21 09/30/24 History pantoprazole 40 mg tablet,delayed 40 mg PO BID #60 tabs 09/20/21 09/30/24 Rx release acetaminophen 650 mg 1,300 mg PO BID 09/30/24 09/30/24 History tablet,extended release (Tylenol 8 Hour) buspirone 5 mg tablet 5 mg PO QDL 09/30/24 09/30/24 History diclofenac sodium 1 % topical gel 2 g topical BID 09/30/24 09/30/24 History food supplemt, lactose-reduced 1 ea PO BID 09/30/24 09/30/24 History losartan 25 mg tablet 25 mg PO DAILY 09/30/24 09/30/24 History olanzapine 2.5 mg tablet 2.5 mg PO DAILY 09/30/24 09/30/24 History propranolol 80 mg capsule,24 80 mg PO DAILY 09/30/24 09/30/24 History hr,extended release trazodone 50 mg tablet 50 mg PO HS 09/30/24 09/30/24 History Active Medication: Active Medications Generic Name Dose Route Start Last Admin Trade Name Freq PRN Reason Stop Dose Admin Acetaminophen 650 mg 10/01/24 00:00 10/01/24 05:43 Acetaminophen 325 Mg Tab PO 10/31/24 00:00 650 mg Q6 SHERIE Administration Atorvastatin Calcium 40 mg 10/01/24 09:00 10/01/24 08:50 Atorvastatin 40 Mg Tab PO 10/31/24 08:59 40 mg DAILY SHERIE Administration Bupropion HCl 150 mg 10/01/24 09:00 10/01/24 08:50 Bupropion Xl 150 Mg Tabcr PO 10/31/24 08:59 150 mg DAILY SHERIE Administration Clopidogrel Bisulfate 75 mg 10/01/24 09:00 10/01/24 08:50 Clopidogrel Bisulfate 75 Mg Tab PO 10/31/24 08:59 75 mg QAM SHERIE Administration Fluoxetine HCl 40 mg 10/01/24 09:00 10/01/24 08:50 Fluoxetine Hcl 20 Mg Cap PO 10/31/24 08:59 40 mg DAILY SHERIE Administration Fluoxetine HCl 20 mg 10/01/24 09:00 10/01/24 08:50 Fluoxetine Hcl 20 Mg Cap PO 10/31/24 08:59 20 mg DAILY SHERIE Administration Heparin Sodium (Porcine) 5,000 units 09/30/24 21:00 10/01/24 08:55 Heparin Sod 5,000 Unit/0.5 Ml Vial SQ 10/30/24 20:59 5,000 units Q12 SHERIE Administration Lorazepam 0.5 mg 09/30/24 17:15 09/30/24 17:56 Lorazepam 2 Mg/1 Ml Vial IV 10/30/24 17:14 0.5 mg ONE PRN Administration Anxiety (PRIOR TO MRI) Pantoprazole Sodium 40 mg 09/30/24 21:00 10/01/24 08:50 Pantoprazole 40 Mg Tab PO 10/30/24 20:59 40 mg BID SHERIE Administration Trazodone HCl 50 mg 09/30/24 21:00 09/30/24 21:00 Trazodone Hcl 50 Mg Tab PO 10/30/24 20:59 50 mg HS SHERIE Administration Recommendations: 1. Hold bupropion, buspirone, fluoxetine, trazodone for now as these agents may contribute to confusion and falls. Note that Fluoxetine has a long half life and is self-tapering. Olanzapine was held already by primary team. 2. Recommend Haldol 2mg po/im/iv for agitation. Monitor QT interval. 3. Recommend avoiding benzodiazepines and anticholinergics if possible as may contribute to confusion and increase risk of falls. 4. May reintroduce psychotropic meds at starting doses once confusion begins to resolve. Psychiatry will follow up.
[2024-10-01] MEDS: OPTIRAY 320 125ml IV ONE (15:32)
[2024-10-01] MEDS: ASPIRIN 81 MG ECTAB PO SCH (15:54)
--- NOTE | 2024-10-01 15:59 | CT Scan Report ---
Exam: CT angiogram of the neck with contrast. DIAGNOSIS: Stroke like symptoms Comparison exam: None Findings there is common origin of the right brachiocephalic and left common carotid artery (bovine origin). Some plaquing is seen at the level of the aortic arch however no significant stenosis is evident at this level. Moderate plaque is seen at the right carotid bifurcation with approximately 60% maximum stenosis in the proximal right internal carotid artery. 40% maximum stenosis in the proximal right external carotid artery. Mild plaque is seen at the left carotid bifurcation with maximum 30% stenosis in the proximal left internal carotid artery and no significant stenosis in the proximal left external carotid artery. Intact flow is seen in the vertebral arteries bilaterally, with the left being minimally dominant in size to the right. These join to form the basilar artery. IMPRESSION: 1. Moderate plaque with a maximum 60% stenosis in the proximal right internal carotid artery. 2. Mild plaque with a maximum 30% stenosis in the proximal left internal carotid artery. 3. Intact vertebral artery flow bilaterally. Electronically signed by Shaquille Robbins 10-01-2024 3:59 PM
--- NOTE | 2024-10-01 16:03 | CT Scan Report ---
Exam: CT angiogram head with contrast Reason for exam: Stroke like symptoms Previous studies: None Findings minor plaquing is seen within the distal intracranial portions of the internal carotid arteries bilaterally without significant stenosis or evidence of thrombus. Intact flow was seen in all the arteries about the [place] again without significant stenosis or thrombosis. No aneurysm is seen at this time. Intact wire was seen in the distal vertebral arteries to form the basilar artery. Intact flow was seen in the posterior circulation bilaterally. IMPRESSION: Mild plaquing of the distal intracranial internal carotid arteries. No significant intracranial stenosis, thrombosis or aneurysm. Electronically signed by Shaquille Robbins 10-01-2024 4:02 PM
--- NOTE | 2024-10-01 16:15 | CT Scan Report ---
Technique: Axial images were obtained along with coronal and sagittal reconstruction. DLP in mGycm reported in the EMR record. Dose lowering technique: Automated exposure control with adjustment of the MA and/or KV, use of iterative reconstruction. Data included in the medical record. Bilateral iliac arterial stents. Right hip prosthesis noted. Hardware is intact. No acute fracture. Right knee joint is unremarkable. No soft tissue hematoma. Urinary bladder is unremarkable. Impression No acute process. Electronically signed by Keagan Mcmahon 10-01-2024 4:15 PM
[2024-10-02 09:16] LABS: Basophils # (auto) 0.02 K/uL (0.00-0.20); Basophils % (auto) 0.3 %; Eosinophils # (auto) 0.14 K/uL (0.00-0.50); Eosinophils % (auto) 2.3 %; Hemoglobin 15.4 g/dl (14.0-18.0); Immature Granulocytes # (auto) 0.01 K/uL (0.01-0.20); Immature Granulocytes % (auto) 0.2 %; Lymphocytes # (auto) 0.97 K/uL (1.20-3.40); Lymphocytes % (auto) 15.9 %; Mean Corpuscular Hemoglobin 30.5 pg (25.0-34.0); Mean Corpuscular Hgb Conc 34.2 g/dL (32.0-36.0); Mean Corpuscular Volume 89.1 fL (80.0-100.0); Mean Platelet Volume 10.4 fL (9.4-12.4); Monocytes # (auto) 0.63 K/uL (0.11-0.59); Monocytes % (auto) 10.3 %; Neutrophils # (auto) 4.33 K/uL (1.40-6.50); Platelet Count 202 K/uL (130-400); RDW Coefficient of Variation 13.1 % (11.5-14.5); RDW Standard Deviation 42.6 fL (36.4-46.3); Red Blood Count 5.05 M/uL (4.70-6.10)
[2024-10-02 09:38] LABS: Albumin Globulin Ratio 1.3 (0.9-2); Albumin Level 3.9 gm/dl (3.4-5.0); BUN Creatinine Ratio 17.9 (10-20); Bilirubin,Total 0.5 mg/dl (0.2-1.0); Creatinine Clr Calc Pharmacy 81.6 ml/min; Globulin 3.1 gm/dl (2.5-4.0); Magnesium 1.9 mg/dl (1.7-2.4); Phosphorus 3.1 mg/dl (2.5-4.9); Potassium 3.9 mmol/L (3.5-5.1)
[2024-10-02] MEDS: GADOBUTROL 65ML VIAL IV ONE (11:53)
--- NOTE | 2024-10-02 12:56 | Magnetic Resonance Report ---
HISTORY: Lower extremity weakness and degenerative changes. TECHNIQUE: Multiplanar multiecho MR imaging of the lumbar spine was performed prior to and following uneventful administration of7 mL of Gadavist IV contrast. COMPARISON: None. FINDINGS: For the purpose of this dictation, the L5-S1 intervertebral disc space will correspond with axial image 17 of series 8. Postsurgical changes are seen following posterior instrumented fusion from L1-L3. Postsurgical Changes of laminectomy extending from L2-3 through L5-S1. Interbody spacers within the L4-5 and L5-S1 intervertebral disc spaces. Partially imaged abdominal aortic aneurysm measuring at least 3.5 cm in diameter. Aorto biiliac endovascular stent graft is partially imaged. There is severe multilevel facet arthrosis. The conus is normal in caliber and contour with the tip at the level of L2 superior endplate. No abnormal enhancement Of the conus or cauda equina. No enhancing epidural mass or fluid collection is evident. At L5-S1: Discectomy has been performed. Posterior osteophyte Formation is asymmetric to the right and narrows the right lateral recess. No canal stenosis with posterior decompression. There is severe right neuroforaminal stenosis with compression of the exiting L5 nerve. Severe left neuroforaminal stenosis with compression of the exiting left L5 nerve. At L4-5: no residual canal stenosis. Posterior decompression has been performed. Severe right neuroforaminal stenosis with compression of the exiting right L4 nerve. Moderate left neural foraminal stenosis. At L3-4: Severe degenerative disc disease. No residual canal stenosis with posterior decompression. Susceptibility artifact limits evaluation of the neuroforamina. Moderate bilateral neural foraminal stenosis. At L2-3: no residual canal stenosis.Mild neuroforaminal stenosis. At L1-2:Severe degenerative disc disease. Broad-based posterior disc bulge, facet Arthrosis, ligamentum flavum thickening resulting in severe central canal stenosis with effacement of the CSF space and compression of the cauda equina. Mild neuroforaminal narrowing. T12-L1: Severe degenerative disc disease. Posterior disc bulge effaces the ventral CSF space and mildly narrows the central canal. Mild bilateral neural foraminal stenosis. IMPRESSION: * Postsurgical changes of posterior instrumented fusion extending from L1-L3. Posterior decompression extending from L2-3 through L5-S1. Interbody spacers within the L4-5 and L5-S1 intervertebral disc spaces. * Severe central canal stenosis at L1-L2 related to posterior disc bulge, facet arthrosis, ligamentum flavum thickening. Effacement of the CSF space and mild compression of the cauda equina. Mild bilateral neuroforaminal stenosis at L1-L2. * Severe bilateral neuroforaminal stenosis at multiple levels is most pronounced at L5-S1 and L4-5. * Remaining multilevel degenerative changes with varying degrees of canal and foraminal stenosis are detailed above by level. Electronically signed by Jose Burrows 10-02-2024 12:55 PM
--- NOTE | 2024-10-02 13:53 | Hospitalist Progress Note ---
Date of Service October 02, 2024 Assessment & Plan (1) Right sided weakness: (2) Confusion: (3) Dizziness: (4) Depression: (5) HTN (hypertension): (6) Dyslipidemia: (7) Diabetes mellitus, type II: (8) COPD (chronic obstructive pulmonary disease): (9) Migraine: Plan 74 year old male with PMH significant for DMII, HTN, HLD, COPD, migraine, depression, and history of L pontine stroke who presented to the ED today with confusion, right sided weakness, and slurred speech who is being admitted for a stroke workup. Right sided weakness History of L pontine CVA Patient with weakness in RUE and RLE Unknown if this is related to previous L pontine stroke or new weakness Stroke workup: Head CT negative negative for acute stroke MRI w/wo contrast negative for acute stroke Carotid duplex bilateral without significant stenosis Echo with EF 60-65%, Grade I diastolic dysfunction, no ASD, no shunt, borderline aortic root dilation A1C 5.9 on 09/06/24 per records Lipid panel: Chol 120 LDL 53 HDL 42 Tri 124 on 09/06/2024 per records PT/OT/ST consults Neuro checks q4hr Consult neurology - appreciate recs -Continue plavix and atorvastatin -CTA head and neck- neuro recommending outpt neurovascular followup -add aspirin 81mg daily for 3 weeks -Neurology f/u concerned about recent injury to right thigh with noted weakness- further imaging of area ordered as well MRI lumbar spine ordered- noting severe degenerative disease and mild compression of cauda equina. Case discussed with ortho spine surgeon Dr Ac who notes likely chronic will see pt in AM...will place home aspirin and DVT prophylaxis on hold...continue plavix at this time Continue to monitor Acute Encephalopathy Possible underlying dementia Could be due to stroke, post-fall concussion, declining neurocognitive function, polypharmacy Patient seen by Neurology Dr. Holm outpatient with workup ongoing (EEG negative for epilepsy per records) and follow up appointment scheduled for 01/23/2025 notes family hx of parkinsons for the pt Head CT negative Labs unremarkable CXR negative No signs of infection UA unremarkable TSH normal vitamin B12 normal lyme screen negative Delirium precautions. Frequent reorientation, avoid sedating medications as able Continue to monitor Dizziness Could be due to stroke, post-fall concussion, polypharmacy Orthostatics overnight with noted significant drop in systolic BP from 180 to 110 Pt currently being worked up for dementia, fam hx of parkinsons, question of associated autonomic dysfunction? 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 PCP: Dr Zaid Arnold DO Admission and Anticipated Discharge Date Admission Date: September 30, 2024 Subjective Pt was seen in the AM alone initially Denied acute concerns Later at bedside, we discussed results MRI results discussed with Dr Ac and pt's via telephone Review of Systems Review of Systems: All systems reviewed & are unremarkable except as noted in Subjective Physical Exam Physical Exam: General: Alert, orientedx3. No acute distress Neuro: right sided weakness in right thigh, leg and foot. No visible muscle wast ing to right thigh, no noted bruises. Otherwise CNII-XII grossly intact HEENT: NC/AT CV: RRR Resp: Breath sounds clear bilaterally, no increased effort of breathing Abdomen: Soft, nontender Extremities: No edema in lower extremities bilaterally. Results & Data Results & Data Vital Signs (Past 12 Hours) Vital Signs Temp Pulse Pulse Resp BP Pulse Ox O2 Del Method 10/02/24 11:38 36.9 C 72 16 172/84 H 94 Room Air 10/02/24 07:27 74 10/02/24 02:56 36.4 C L 68 16 158/77 H 93 Room Air
--- NOTE | 2024-10-02 14:30 | Communication Note ---
Date of Service: October 02, 2024 CTA head & neck reviewed. Appreciate right ICA stenosis- incidental - asymptomatic at this time. Recommend outpatient ambulatory referral to [facility] endovascular team for further monitoring.
[2024-10-03] MEDS: METOPROLOL TARTRATE 1 MG/ML VIAL IV STA (04:44)
[2024-10-03 09:07] LABS: Basophils # (auto) 0.02 K/uL (0.00-0.20); Basophils % (auto) 0.3 %; Eosinophils # (auto) 0.12 K/uL (0.00-0.50); Eosinophils % (auto) 1.6 %; Hematocrit (blood only) 45.2 % (42.0-52.0); Hemoglobin 15.6 g/dl (14.0-18.0); Immature Granulocytes # (auto) 0.02 K/uL (0.01-0.20); Immature Granulocytes % (auto) 0.3 %; Lymphocytes # (auto) 1.13 K/uL (1.20-3.40); Lymphocytes % (auto) 15.3 %; Mean Corpuscular Hemoglobin 30.9 pg (25.0-34.0); Mean Corpuscular Hgb Conc 34.5 g/dL (32.0-36.0); Mean Corpuscular Volume 89.5 fL (80.0-100.0); Monocytes % (auto) 10.9 %; Neutrophils # (auto) 5.28 K/uL (1.40-6.50); Neutrophils % (auto) 71.6 %; Platelet Count 221 K/uL (130-400); RDW Coefficient of Variation 13.1 % (11.5-14.5); RDW Standard Deviation 42.5 fL (36.4-46.3); Red Blood Count 5.05 M/uL (4.70-6.10); White Blood Count 7.37 K/ul (4.8-10.8)
[2024-10-03 09:25] LABS: BUN Creatinine Ratio 14.5 (10-20); Calcium 9.1 mg/dl (8.6-10.3); Creatinine Clr Calc Pharmacy 76.7 ml/min; Magnesium 1.9 mg/dl (1.7-2.4); Phosphorus 3.3 mg/dl (2.5-4.9)
--- NOTE | 2024-10-03 13:40 | Magnetic Resonance Report ---
MR thoracic spine wo con CLINICAL HISTORY: leg weakness COMPARISON STUDY: Lumbar MRI yesterday FINDINGS: There is motion artifact. There is grade 1 anterolisthesis of C7 on T1. No thoracic spine f racture or subluxation seen otherwise. There is mild degenerative disc disease at the mid and lower thoracic spine with multilevel mild disc bulges. There is ligamentum flavum and facet hypertrophy. There is mild central canal narrowing at T8-9 with mild right neural foraminal narrowing. There is mild central canal narrowing at T9-10 without significant neural foraminal narrowing. There is mild central canal narrowing at T10-11. There is mild bilateral neuroforaminal narrowing. There is moderate central canal narrowing at T11-12 with mild bilateral neuroforaminal narrowing. The re is a small area of increased T2 signal within the spinal cord at that level consistent with small area of myelomalacia. No other significant central canal or neural foraminal narrowing seen at the thoracic spine. IMPRESSION: 1. No thoracic spine fracture seen. 2. Lower thoracic spine degenerative changes with multilevel central canal narrowing, most severe at T11-12 where there is also a small area of myelomalacia at the distal thoracic spinal cord. ACT 112: Negative or not required by law. Electronically signed by: Shaquille Jimenez M.D. 10/03/2024 1:38 PM
--- NOTE | 2024-10-03 14:52 | Hospitalist Progress Note ---
Date of Service October 03, 2024 Assessment & Plan (1) Right sided weakness: (2) Confusion: (3) Dizziness: (4) Depression: (5) HTN (hypertension): (6) Dyslipidemia: (7) Diabetes mellitus, type II: (8) COPD (chronic obstructive pulmonary disease): (9) Migraine: Plan 74 year old male with PMH significant for DMII, HTN, HLD, COPD, migraine, depression, and history of L pontine stroke who presented to the ED today with confusion, right sided weakness, and slurred speech who is being admitted for a stroke workup. Right sided weakness History of L pontine CVA Patient with weakness in RUE and RLE Unknown if this is related to previous L pontine stroke or new weakness Stroke workup: Head CT negative negative for acute stroke MRI w/wo contrast negative for acute stroke Carotid duplex bilateral without significant stenosis Echo with EF 60-65%, Grade I diastolic dysfunction, no ASD, no shunt, borderline aortic root dilation A1C 5.9 on 09/06/24 per records Lipid panel: Chol 120 LDL 53 HDL 42 Tri 124 on 09/06/2024 per records PT/OT/ST consults Neuro checks q4hr Consult neurology - appreciate recs -Continue plavix and atorvastatin -CTA head and neck- neuro recommending outpt neurovascular followup -add aspirin 81mg daily for 3 weeks -Neurology f/u concerned about recent injury to right thigh with noted weakness- further imaging of area ordered as well MRI lumbar spine ordered- noting severe degenerative disease and mild compression of cauda equina. Case discussed with ortho spine surgeon Dr Ac who notes likely chronic will see pt in AM...will place home aspirin and DVT prophylaxis on hold...continue plavix at this time Continue to monitor 10/03- considering surgical decompression once medically stable. Acute Encephalopathy Possible underlying dementia Could be due to stroke, post-fall concussion, declining neurocognitive function, polypharmacy Patient seen by Neurology Dr. Holm outpatient with workup ongoing (EEG negative for epilepsy per records) and follow up appointment scheduled for notes family hx of parkinsons for the pt Head CT negative Labs unremarkable CXR negative No signs of infection UA unremarkable TSH normal vitamin B12 normal lyme screen negative Delirium precautions. Frequent reorientation, avoid sedating medications as able Continue to monitor Dizziness Could be due to stroke, post-fall concussion, polypharmacy Orthostatics overnight with noted significant drop in systolic BP from 180 to 110 Pt currently being worked up for dementia, fam hx of parkinsons, question of associated autonomic dysfunction? 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 PCP: Dr Zaid Arnold DO Admission and Anticipated Discharge Date Admission Date: September 30, 2024 Subjective Pt was seen in the AM Laying in bed States he will not go to acute rehab Review of Systems Review of Systems: All systems reviewed & are unremarkable except as noted in Subjective Physical Exam Physical Exam: General: Alert, orientedx3. No acute distress Neuro: right sided weakness in right thigh, leg and foot. No visible muscle wasting to right thigh, no noted bruises. Otherwise CNII-XII grossly intact HEENT: NC/AT CV: RRR Resp: Breath sounds clear bilaterally, no increased effort of breathing Abdomen: Soft, nontender Extremities: No edema in lower extremities bilaterally. Results & Data Results & Data Vital Signs (Past 12 Hours) Vital Signs Temp Pulse Pulse Resp BP BP Pulse Ox 10/03/24 14:22 77 10/03/24 11:35 36.7 C 84 16 179/75 H 98 10/03/24 07:50 36.7 C 68 16 168/80 H 93 10/03/24 07:41 65 10/03/24 05:05 65 131/76 10/03/24 04:44 71 178/90 H 10/03/24 04:18 70 195/94 H 10/03/24 03:57 36.4 C L 69 20 183/81 H 94 O2 Del Method 10/03/24 14:22 10/03/24 11:35 Room Air 10/03/24 07:50 Room Air 10/03/24 07:41 10/03/24 05:05 10/03/24 04:44 10/03/24 04:18 10/03/24 03:57 Room Air
--- NOTE | 2024-10-03 15:49 | Orthopedic Consultation ---
Date of Consultation October 03, 2024 Assessment & Plan (1) Myelopathy concurrent with and due to spinal stenosis of thoracic region: Assessment thoracic spinal stenosis with myelopathy. Plan at this time MRI of the lumbar region shows some modest disease at L1-L2. However the thoracic MRI does demonstrate evidence of T10-T11 myelomalacia with facet hypertrophy and spinal stenosis. This undoubtedly could be contributing to his lower extremity dysfunction and balance decline. We may have to consider surgical decompression when medically stable. History of Present Illness Reason for Consultation: Leg weakness Attending Physician: Tamica Brock MD History of Present Illness This is a 74-year-old male known to me from the past surgery the presents the hospital with multiple medical issues and sensation of bilateral leg weakness. He has history of falls. Today he states his balance has declined. He must use a walker. He does note numbness in his feet. Denies any radicular type of pain. Describes weakness in his lower extremities. Denies any significant back pain. Allergies Allergy/AdvReac Type Severity Reaction Status Date / Time latex Allergy Intermediate Rash Verified 09/30/24 15:44 tetracycline Allergy Intermediate RASH Verified 09/30/24 15:44 Home Medications Medication Instructions Recorded Confirmed Type albuterol sulfate 90 mcg/actuation 2 puff inhalation Q4 PRN Wheezing 09/08/21 09/30/24 History aerosol inhaler atorvastatin 40 mg tablet 40 mg PO DAILY 09/08/21 09/30/24 History bupropion HCl 150 mg 24 hr tablet, 150 mg PO DAILY 09/08/21 09/30/24 History extended release calcium carbonate 500 mg PO DIRECTED PRN 09/08/21 09/30/24 History HEARTBURN/INDIGESTION clopidogrel 75 mg tablet 75 mg PO QAM 09/08/21 09/30/24 History fluoxetine 20 mg capsule 20 mg PO DAILY 09/08/21 09/30/24 History fluoxetine 40 mg capsule 40 mg PO DAILY 09/08/21 09/30/24 History lorazepam 1 mg tablet 1 mg PO HS PRN Anxiety/insomnia 09/08/21 09/30/24 History ooxvvfwe-wbg-baivi acid 0.4 1 tab PO DAILY 09/08/21 09/30/24 History mg-lycopene 300 mcg-lutein 250 mcg tablet (Centrum Silver) rizatriptan 10 mg tablet 10 mg PO UD PRN Migraine Headache 09/08/21 09/30/24 History tramadol 50 mg tablet 50 mg PO Q6 PRN Pain, Severe 09/08/21 09/30/24 History pantoprazole 40 mg tablet,delayed 40 mg PO BID #60 tabs 09/20/21 09/30/24 Rx release acetaminophen 650 mg 1,300 mg PO BID 09/30/24 09/30/24 History tablet,extended release (Tylenol 8 Hour) buspirone 5 mg tablet 5 mg PO QDL 09/30/24 09/30/24 History diclofenac sodium 1 % topical gel 2 g topical BID 09/30/24 09/30/24 History food supplemt, lactose-reduced 1 ea PO BID 09/30/24 09/30/24 History losartan 25 mg tablet 25 mg PO DAILY 09/30/24 09/30/24 History olanzapine 2.5 mg tablet 2.5 mg PO DAILY 09/30/24 09/30/24 History propranolol 80 mg capsule,24 80 mg PO DAILY 09/30/24 09/30/24 History hr,extended release trazodone 50 mg tablet 50 mg PO HS 09/30/24 09/30/24 History Patient History Medical History (Updated 10/03/24 @ 15:48 by Robb Ac DO) AAA (abdominal aortic aneurysm) without rupture Obstructive sleep apnea on CPAP Left pontine CVA Hip pain Pancreatitis Encounter for pre-operative examination Abdominal pain Duodenal ulcer Acute blood loss anemia Acute upper GI bleed Gastric outlet obstruction Abdominal pain, acute, epigastric Nausea & vomiting Syncope and collapse H/O asbestos exposure H/O restrictive lung disease History of CVA (cerebrovascular accident) "05/2015", no residual deficit H/O migraine with aura History of tobacco abuse Slurred speech DJD (degenerative joint disease) DJD (degenerative joint disease), multiple sites Surgical History History of AAA (abdominal aortic aneurysm) repair History of right hip replacement "01/2015" History of lumbar laminectomy "2000,2001,2004,2006" History of colonoscopy Social History (Updated 09/30/24 @ 17:41 by DARNELL Oliveira) Smoking Status: Former smoker Smoking End Date: years ago; Second Hand Exposure: No; Hx Alcohol Use: No Hx Substance Use: No Preferred Language: Greek Circular Sawyer Helper Required: No Beliefs That Will Affect Care: None Current Living Situation: Spouse Current Living Situation Comment: Lives w/ Feels Safe at Home: Yes Assistive Devices: Cane, Glasses, Hearing Aid - Bilateral and Walker Physical Exam Physical Exam: On exam the patient was able to get out of bed on his own. He can walk with a walker. He cannot heel and toe walk even with assistance secondary to loss of balance. He has a markedly myelopathic gait. Bench exam reveals a 3 beat nonsustained clonus bilateral lower extremities. Sensory is intact. 4/5 strength. Results & Data Vital Signs (Past 12 Hours) Vital Signs Temp Pulse Pulse Resp BP BP Pulse Ox 10/03/24 15:41 36.7 C 79 16 155/82 H 95 10/03/24 14:22 77 10/03/24 11:35 36.7 C 84 16 179/75 H 98 10/03/24 07:50 36.7 C 68 16 168/80 H 93 10/03/24 07:41 65 10/03/24 05:05 65 131/76 10/03/24 04:44 71 178/90 H 10/03/24 04:18 70 195/94 H 10/03/24 03:57 36.4 C L 69 20 183/81 H 94 O2 Del Method 10/03/24 15:41 Room Air 10/03/24 14:22 10/03/24 11:35 Room Air 10/03/24 07:50 Room Air 10/03/24 07:41 10/03/24 05:05 10/03/24 04:44 10/03/24 04:18 10/03/24 03:57 Room Air
[2024-10-04 05:55] LABS: Basophils # (auto) 0.03 K/uL (0.00-0.20); Basophils % (auto) 0.4 %; Eosinophils # (auto) 0.16 K/uL (0.00-0.50); Eosinophils % (auto) 1.9 %; Hematocrit (blood only) 46.4 % (42.0-52.0); Hemoglobin 15.8 g/dl (14.0-18.0); Immature Granulocytes # (auto) 0.03 K/uL (0.01-0.20); Immature Granulocytes % (auto) 0.4 %; Lymphocytes # (auto) 1.27 K/uL (1.20-3.40); Mean Corpuscular Hemoglobin 30.4 pg (25.0-34.0); Mean Corpuscular Hgb Conc 34.1 g/dL (32.0-36.0); Mean Corpuscular Volume 89.2 fL (80.0-100.0); Mean Platelet Volume 9.9 fL (9.4-12.4); Monocytes # (auto) 1.03 K/uL (0.11-0.59); Monocytes % (auto) 12.1 %; Neutrophils # (auto) 5.96 K/uL (1.40-6.50); Neutrophils % (auto) 70.2 %; Platelet Count 213 K/uL (130-400); RDW Coefficient of Variation 13.1 % (11.5-14.5); RDW Standard Deviation 42.9 fL (36.4-46.3); White Blood Count 8.48 K/ul (4.8-10.8)
[2024-10-04 06:11] LABS: BUN Creatinine Ratio 22.4 (10-20); Calcium 8.9 mg/dl (8.6-10.3); Creatinine Clr Calc Pharmacy 83.8 ml/min; Phosphorus 3.3 mg/dl (2.5-4.9); Potassium 3.9 mmol/L (3.5-5.1)
--- NOTE | 2024-10-04 15:16 | Orthopedic Progress Note ---
Date of Service October 04, 2024 Assessment & Plan (1) Myelopathy concurrent with and due to spinal stenosis of thoracic region: Plan: Assessment thoracic spinal stenosis with myelomalacia and myelopathy. Plan I discussed with the patient and his today regarding his imaging and clinical presentation. We discussed thoracic decompression fusion to address the spinal stenosis and halt the progression of cord damage. They like to proceed. We had considered this week but unfortunately still on Plavix. We need to wait at least 5 days secondary to the invasiveness of the procedure and risk of blood loss. I will work towards an operative time as soon as possible. Admission and Anticipated Discharge Date Admission Date: September 30, 2024 Subjective Patient continues to note marked decline in ability to ambulate with loss of balance and lower extremity strength. Results & Data Vital Signs (Past 12 Hours) Vital Signs Temp Pulse Pulse Resp BP Pulse Ox O2 Del Method 10/04/24 14:20 94 H 10/04/24 08:10 36.6 C 18 165/76 H 95 Room Air 10/04/24 07:23 73 10/04/24 03:39 36.9 C 89 18 151/69 H 94 Room Air
--- NOTE | 2024-10-04 16:34 | Hospitalist Progress Note ---
Date of Service October 04, 2024 Assessment & Plan (1) Right sided weakness: (2) Confusion: (3) Dizziness: (4) Depression: (5) HTN (hypertension): (6) Dyslipidemia: (7) Diabetes mellitus, type II: (8) COPD (chronic obstructive pulmonary disease): (9) Migraine: Plan 74 year old male with PMH significant for DMII, HTN, HLD, COPD, migraine, depression, and history of L pontine stroke who presented to the ED today with confusion, right sided weakness, and slurred speech who is being admitted for a stroke workup. Right sided weakness History of L pontine CVA Patient with weakness in RUE and RLE Unknown if this is related to previous L pontine stroke or new weakness Stroke workup: Head CT negative negative for acute stroke MRI w/wo contrast negative for acute stroke Carotid duplex bilateral without significant stenosis Echo with EF 60-65%, Grade I diastolic dysfunction, no ASD, no shunt, borderline aortic root dilation A1C 5.9 on 09/06/24 per records Lipid panel: Chol 120 LDL 53 HDL 42 Tri 124 on 09/06/2024 per records PT/OT/ST consults Neuro checks q4hr Consult neurology - appreciate recs -Continue plavix and atorvastatin -CTA head and neck- neuro recommending outpt neurovascular followup -add aspirin 81mg daily for 3 weeks -Neurology f/u concerned about recent injury to right thigh with noted weakness- further imaging of area ordered as well MRI lumbar spine ordered- noting severe degenerative disease and mild compression of cauda equina. Case discussed with ortho spine surgeon Dr Ac who notes likely chronic will see pt in AM...will place home aspirin and DVT prophylaxis on hold...continue plavix at this time Continue to monitor 10/03- considering surgical decompression once medically stable. 10/04- pt's would like surgery as soon as possible per ortho spine. Holding aspirin, plavix, DVT prophylaxis. Acute Encephalopathy Possible underlying dementia Could be due to stroke, post-fall concussion, declining neurocognitive function, polypharmacy Patient seen by Neurology Dr. Holm outpatient with workup ongoing (EEG negative for epilepsy per records) and follow up appointment scheduled for 01/23/2025 notes family hx of parkinsons for the pt Head CT negative Labs unremarkable CXR negative No signs of infection UA unremarkable TSH normal vitamin B12 normal lyme screen negative Delirium precautions. Frequent reorientation, avoid sedating medications as able Continue to monitor Dizziness Could be due to stroke, post-fall concussion, polypharmacy Orthostatics overnight with noted significant drop in systolic BP from 180 to 110 Pt currently being worked up for dementia, fam hx of parkinsons, question of associated autonomic dysfunction? 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 PCP: Dr Zaid Arnold DO Admission and Anticipated Discharge Date Admission Date: September 30, 2024 Subjective Pt was seen by himself this AM Denied acute concerns Review of Systems Review of Systems: All systems reviewed & are unremarkable except as noted in Subjective Physical Exam Physical Exam: General: Alert, orientedx3. No acute distress Neuro: right sided weakness in right thigh, leg and foot. No visible muscle wasting to right thigh, no noted bruises. Otherwise CNII-XII grossly intact HEENT: NC/AT CV: RRR Resp: Breath sounds clear bilaterally, no increased effort of breathing Abdomen: Soft, nontender Extremities: No edema in lower extremities bilaterally. Results & Data Results & Data Vital Signs (Past 12 Hours) Vital Signs Temp Pulse Resp BP Pulse Ox O2 Del Method 10/04/24 14:20 94 H 10/04/24 08:10 36.6 C 18 165/76 H 95 Room Air 10/04/24 07:23 73
[2024-10-05 06:43] LABS: Basophils # (auto) 0.02 K/uL (0.00-0.20); Basophils % (auto) 0.3 %; Eosinophils # (auto) 0.18 K/uL (0.00-0.50); Eosinophils % (auto) 2.3 %; Hematocrit (blood only) 45.9 % (42.0-52.0); Hemoglobin 15.5 g/dl (14.0-18.0); Immature Granulocytes # (auto) 0.04 K/uL (0.01-0.20); Immature Granulocytes % (auto) 0.5 %; Lymphocytes # (auto) 1.39 K/uL (1.20-3.40); Lymphocytes % (auto) 17.6 %; Mean Corpuscular Hemoglobin 30.4 pg (25.0-34.0); Mean Corpuscular Hgb Conc 33.8 g/dL (32.0-36.0); Mean Platelet Volume 10.3 fL (9.4-12.4); Monocytes # (auto) 0.89 K/uL (0.11-0.59); Monocytes % (auto) 11.2 %; Neutrophils % (auto) 68.1 %; Platelet Count 206 K/uL (130-400); RDW Coefficient of Variation 13.2 % (11.5-14.5); RDW Standard Deviation 43.7 fL (36.4-46.3); White Blood Count 7.92 K/ul (4.8-10.8)
[2024-10-05 07:06] LABS: BUN Creatinine Ratio 21.1 (10-20); Calcium 8.9 mg/dl (8.6-10.3); Creatinine Clr Calc Pharmacy 83.8 ml/min; Phosphorus 3.2 mg/dl (2.5-4.9); Potassium 3.7 mmol/L (3.5-5.1)
--- NOTE | 2024-10-05 08:20 | Orthopedic Progress Note ---
Date of Service October 05, 2024 Assessment & Plan (1) Myelopathy concurrent with and due to spinal stenosis of thoracic region: Plan: At this time patient has been on Plavix. We would not be able to perform his procedure tomorrow. We are looking for operative time next week possibly Thursday. Patient understands and agrees. Admission and Anticipated Discharge Date Admission Date: September 30, 2024 Subjective Leg weakness and balance decline Physical Exam Physical Exam: Unchanged Results & Data Vital Signs (Past 12 Hours) Vital Signs Temp Pulse Pulse Resp BP Pulse Ox O2 Del Method 10/05/24 07:42 36.6 C 69 18 171/73 H 93 Room Air 10/05/24 07:09 75 10/05/24 03:05 36.5 C 67 12 151/77 H 93 Room Air 10/04/24 23:50 73 10/04/24 23:05 36.4 C L 71 12 150/80 H 95 Room Air
--- NOTE | 2024-10-05 12:23 | Hospitalist Progress Note ---
Date of Service October 05, 2024 Assessment & Plan (1) Right sided weakness: (2) Confusion: (3) Dizziness: (4) Depression: (5) HTN (hypertension): (6) Dyslipidemia: (7) Diabetes mellitus, type II: (8) COPD (chronic obstructive pulmonary disease): (9) Migraine: Plan 74 year old male with PMH significant for DMII, HTN, HLD, COPD, migraine, depression, and history of L pontine stroke who presented to the ED today with confusion, right sided weakness, and slurred speech who is being admitted for a stroke workup. Right sided weakness History of L pontine CVA -Patient with weakness in RUE and RLE -Unknown if this is related to previous L pontine stroke or new weakness -MRI w/wo contrast negative for acute stroke Plan: -PT/OTconsults -Consult neurology - appreciate recs -Continue plavix and atorvastatin -CTA head and neck- neuro recommending outpt neurovascular followup -continue aspirin 81mg daily for 3 weeks -Neurology f/u -MRI lumbar spine ordered- noting severe degenerative disease and mild compression of cauda equina, awaiting plavix washout of 5 days, earliest for procedure would be 10/08 -awaiting procedure Acute Encephalopathy Possible underlying dementia -Could be due to stroke, post-fall concussion, declining neurocognitive function, polypharmacy -Patient seen by Neurology Dr. Holm outpatient with workup ongoing (EEG negative for epilepsy per records) and follow up appointment scheduled for 01/23/2025 - notes family hx of parkinsons for the pt UA unremarkable TSH normal vitamin B12 normal lyme screen negative -likely mild to moderate dementia Plan: -Delirium precautions. Frequent reorientation, avoid sedating medications as able -f/u outpatient, start folic acid, thiamine, B12 supplementation Dizziness -Could be due to stroke, post-fall concussion, polypharmacy -Pt currently being worked up for dementia, fam hx of parkinsons, question of associated autonomic dysfunction Plan: -Holding home propranolol and losartan -decrease fluoxetine to 40 mg to decrease polypharmacy, help with improving encephalopathy Depression/anxiety -Continue bupropion, buspirone, fluoxetine, trazodone, lorazepam Hypertension -Hold losartan due to stroke workup -Home propranolol also on hold Dyslipidemia -Lipid panel: Chol 120 LDL 53 HDL 42 Tri 124 on 09/06/2024 per records -Continue atorvastatin DMII -Diet controlled COPD -Controlled -Albuterol PRN GERD -Continue pantoprazole and tums PRN Migraine -Controlled - rizatriptan PRN -Hold propranolol due to stroke workup and bradycardia Admission and Anticipated Discharge Date Admission Date: September 30, 2024 Subjective Patient seen and examined at bedside. Patient doing well today, looking forward to getting procedure when he is able. States he has some low back pain but this is chronic. otherwise feels well overall. Review of Systems Review of Systems: CONSTITUTIONAL: Patient denies fevers, chills, sweats and weight changes. EYES: Patient denies any visual symptoms. EARS, NOSE, AND THROAT: No difficulties with hearing. No symptoms of rhinitis or sore throat. CARDIOVASCULAR: Patient denies chest pains, palpitations, orthopnea and paroxysmal nocturnal dyspnea. RESPIRATORY: No dyspnea on exertion, no wheezing or cough. GI: No nausea, vomiting, diarrhea, constipation, abdominal pain, hematochezia or melena. : No urinary hesitancy or dribbling. No nocturia or urinary frequency. No abnormal urethral discharge. MUSCULOSKELETAL: low back pain NEUROLOGIC: No chronic headaches, no seizures. Patient denies numbness, tingling or weakness. PSYCHIATRIC: Patient denies problems with mood disturbance. No problems with anxiety. ENDOCRINE: No excessive urination or excessive thirst. DERMATOLOGIC: Patient denies any rashes or skin changes. Physical Exam Physical Exam: Gen: A&O 2-3 NAD HEENT: NCAT, EOMI, not icteric. External ears normal. No rhinorrhea. Moist mucous membranes. Neck: Supple, full range of motion, no observable masses, No meningeal sign. Lungs: No Respiratory distress. CV: RRR, no edema. Abdomen: Soft, nondistended, No rebound tenderness. MSK: some tenderness in lower back with shooting pain to right knee Skin: No rashes, petechiae, lesions. Normal color per patient. Neuro: Normal Gait, Grossly intact. Psych: Appropriate for situation. Results & Data Results & Data Vital Signs (Past 12 Hours) Vital Signs Temp Pulse Pulse Resp BP Pulse Ox O2 Del Method 10/05/24 11:18 36.9 C 85 18 162/89 H 97 Room Air 10/05/24 07:42 36.6 C 69 18 171/73 H 93 Room Air 10/05/24 07:09 10/05/24 03:05 36.5 C 67 12 151/77 H 93 Room Air Laboratory Results -personally reviewed, no leukocytosis, Hgb at baseline, creatinine stable Medications Administered Acetaminophen (Acetaminophen 325 Mg Tab) 650 mg PO Q6 SHERIE Stop: 10/31/24 00:00 Last Admin: 10/05/24 11:36 Dose: 650 mg Documented By: Admin: 10/05/24 06:04 Dose: 650 mg Documented By: Admin: 10/04/24 23:57 Dose: 650 mg Documented By: Admin: 10/04/24 17:55 Dose: 650 mg Documented By: Admin: 10/04/24 11:48 Dose: 650 mg Documented By: Admin: 10/04/24 05:56 Dose: 650 mg Documented By: Admin: 10/04/24 01:06 Dose: 650 mg Documented By: Admin: 10/03/24 18:33 Dose: 650 mg Documented By: Admin: 10/03/24 11:07 Dose: 650 mg Documented By: Admin: 10/03/24 05:06 Dose: 650 mg Documented By: Admin: 10/03/24 00:21 Dose: 650 mg Documented By: Admin: 10/02/24 18:37 Dose: Not Given Documented By: Admin: 10/02/24 12:25 Dose: 650 mg Documented By: Admin: 10/02/24 05:44 Dose: 650 mg Documented By: Admin: 10/01/24 23:38 Dose: 650 mg Documented By: Admin: 10/01/24 18:16 Dose: Not Given Documented By: Admin: 10/01/24 15:55 Dose: 650 mg Documented By: Admin: 10/01/24 05:43 Dose: 650 mg Documented By: Admin: 10/01/24 00:14 Dose: 650 mg Documented By: PETRONA Aspirin (Aspirin 81 Mg Ectab) 81 mg PO QA SHERIE Stop: 10/31/24 14:44 Last Admin: 10/02/24 08:47 Dose: 81 mg Documented By: Admin: 10/01/24 15:54 Dose: 81 mg Documented By: JORGE Atorvastatin Calcium (Atorvastatin 40 Mg Tab) 40 mg PO DAILY SHERIE Stop: 10/31/24 08:59 Last Admin: 10/05/24 08:43 Dose: 40 mg Documented By: ESAbdoulaye Admin: 10/04/24 08:52 Dose: 40 mg Documented By: Admin: 10/03/24 08:28 Dose: 40 mg Documented By: Admin: 10/02/24 08:49 Dose: 40 mg Documented By: Admin: 10/01/24 08:50 Dose: 40 mg Documented By: JORGE Bupropion HCl (Bupropion Xl 150 Mg Tabcr) 150 mg PO DAILY [facility]IE Stop: 10/31/24 08:59 Last Admin: 10/05/24 08:43 Dose: 150 mg Documented By: Admin: 10/04/24 08:52 Dose: 150 mg Documented By: Admin: 10/03/24 08:28 Dose: 150 mg Documented By: Admin: 10/02/24 08:47 Dose: 150 mg Documented By: Admin: 10/01/24 08:50 Dose: 150 mg Documented By: JORGE Clopidogrel Bisulfate (Clopidogrel Bisulfate 75 Mg Tab) 75 mg PO QA SHERIE Stop: 10/31/24 08:59 Last Admin: 10/04/24 08:52 Dose: 75 mg Documented By: Admin: 10/03/24 08:28 Dose: 75 mg Documented By: Admin: 10/02/24 08:49 Dose: 75 mg Documented By: Admin: 10/01/24 08:50 Dose: 75 mg Documented By: JORGE Fluoxetine HCl (Fluoxetine Hcl 20 Mg Cap) 40 mg PO DAILY [facility]IE Stop: 10/31/24 08:59 Last Admin: 10/05/24 08:43 Dose: 40 mg Documented By: Admin: 10/04/24 08:52 Dose: 40 mg Documented By: Admin: 10/03/24 08:29 Dose: 40 mg Documented By: Admin: 10/02/24 08:48 Dose: 40 mg Documented By: Admin: 10/01/24 08:50 Dose: 40 mg Documented By: JORGE Fluoxetine HCl (Fluoxetine Hcl 20 Mg Cap) 20 mg PO DAILY [facility] Stop: 10/31/24 08:59 Last Admin: 10/05/24 08:43 Dose: 20 mg Documented By: Admin: 10/04/24 08:52 Dose: 20 mg Documented By: Admin: 10/03/24 08:29 Dose: 20 mg Documented By: Admin: 10/02/24 08:47 Dose: 20 mg Documented By: Admin: 10/01/24 08:50 Dose: 20 mg Documented By: JORGE Heparin Sodium (Porcine) (Heparin Sod 5,000 Unit/0.5 Ml Vial) 5,000 units SQ Q12 SHERIE Stop: 10/30/24 20:59 Last Admin: 10/02/24 10:06 Dose: Not Given Documented By: Admin: 10/01/24 20:17 Dose: 5,000 units Documented By: Admin: 10/01/24 08:55 Dose: 5,000 units Documented By: Admin: 09/30/24 21:00 Dose: 5,000 units Documented By: PETRONA Pantoprazole Sodium (Pantoprazole 40 Mg Tab) 40 mg PO BID SHERIE Stop: 10/30/24 20:59 Last Admin: 10/05/24 08:43 Dose: 40 mg Documented By: Admin: 10/04/24 21:29 Dose: 40 mg Documented By: Admin: 10/04/24 08:53 Dose: 40 mg Documented By: Admin: 10/03/24 20:25 Dose: 40 mg Documented By: Admin: 10/03/24 08:28 Dose: 40 mg Documented By: Admin: 10/02/24 20:17 Dose: 40 mg Documented By: Admin: 10/02/24 08:49 Dose: 40 mg Documented By: Admin: 10/01/24 20:18 Dose: 40 mg Documented By: Admin: 10/01/24 08:50 Dose: 40 mg Documented By: Admin: 09/30/24 21:00 Dose: 40 mg Documented By: PETRONA Trazodone HCl (Trazodone Hcl 50 Mg Tab) 50 mg PO HS SHERIE Stop: 10/30/24 20:59 Last Admin: 10/04/24 21:29 Dose: 50 mg Documented By: Admin: 10/03/24 20:25 Dose: 50 mg Documented By: Admin: 10/02/24 20:16 Dose: 50 mg Documented By: Admin: 10/01/24 20:17 Dose: 50 mg Documented By: Admin: 09/30/24 21:00 Dose: 50 mg Documented By: PETRONA
[2024-10-06] MEDS: THIAMINE HCL 100 MG TAB PO SCH (09:14)
[2024-10-06] MEDS: FOLIC ACID 1 MG TAB PO SCH (09:14)
[2024-10-06] MEDS: VITAMIN B COMPLEX TAB PO SCH (09:14)
[2024-10-06 09:43] LABS: Hematocrit (blood only) 44.8 % (42.0-52.0); Mean Corpuscular Hgb Conc 33.5 g/dL (32.0-36.0); Mean Corpuscular Volume 89.6 fL (80.0-100.0); Mean Platelet Volume 10.3 fL (9.4-12.4); Platelet Count 206 K/uL (130-400); RDW Coefficient of Variation 13.4 % (11.5-14.5); RDW Standard Deviation 43.8 fL (36.4-46.3); White Blood Count 7.73 K/ul (4.8-10.8)
[2024-10-06 10:04] LABS: BUN Creatinine Ratio 20.3 (10-20); Calcium 8.9 mg/dl (8.6-10.3); Creatinine Clr Calc Pharmacy 80.6 ml/min; Potassium 4.1 mmol/L (3.5-5.1)
--- NOTE | 2024-10-06 12:33 | Hospitalist Progress Note ---
Date of Service October 06, 2024 Assessment & Plan (1) Right sided weakness: (2) Confusion: (3) Dizziness: (4) Depression: (5) HTN (hypertension): (6) Dyslipidemia: (7) Diabetes mellitus, type II: (8) COPD (chronic obstructive pulmonary disease): (9) Migraine: Plan 74 year old male with PMH significant for DMII, HTN, HLD, COPD, migraine, depression, and history of L pontine stroke who presented to the ED today with confusion, right sided weakness, and slurred speech who is being admitted for a stroke workup. Right sided weakness History of L pontine CVA -Patient with weakness in RUE and RLE -Unknown if this is related to previous L pontine stroke or new weakness -MRI w/wo contrast negative for acute stroke Plan: -PT/OTconsults -Consult neurology - appreciate recs -Continue plavix and atorvastatin -CTA head and neck- neuro recommending outpt neurovascular followup -continue aspirin 81mg daily for 3 weeks -Neurology f/u -MRI lumbar spine ordered- noting severe degenerative disease and mild compression of cauda equina, awaiting plavix washout of 5 days, earliest for procedure would be 10/08 -awaiting procedure Acute Encephalopathy Possible underlying dementia -Could be due to stroke, post-fall concussion, declining neurocognitive function, polypharmacy -Patient seen by Neurology Dr. Holm outpatient with workup ongoing (EEG negative for epilepsy per records) and follow up appointment scheduled for 01/23/2025 - notes family hx of parkinsons for the pt UA unremarkable TSH normal vitamin B12 normal lyme screen negative -likely mild to moderate dementia Plan: -Delirium precautions. Frequent reorientation, avoid sedating medications as able -f/u outpatient, start folic acid, thiamine, B12 supplementation Dizziness -Could be due to stroke, post-fall concussion, polypharmacy -Pt currently being worked up for dementia, fam hx of parkinsons, question of associated autonomic dysfunction Plan: -Holding home propranolol and losartan -continue fluoxetine 40 mg to decrease polypharmacy, help with improving encephalopathy Depression/anxiety -Continue bupropion, buspirone, fluoxetine, trazodone, lorazepam Hypertension -Hold losartan due to stroke workup -Home propranolol also on hold Dyslipidemia -Lipid panel: Chol 120 LDL 53 HDL 42 Tri 124 on 09/06/2024 per records -Continue atorvastatin DMII -Diet controlled COPD -Controlled -Albuterol PRN GERD -Continue pantoprazole and tums PRN Migraine -Controlled - rizatriptan PRN -Hold propranolol due to stroke workup and bradycardia I spent a total of 40 minutes in direct patient care, including [id number] time with the patient and/or family, reviewing medical records, ordering and reviewing diagnostic tests, and coordinating care with other healthcare providers. This time includes: history taking, physical examination, medical decision making, counseling, ECG interpretation, imaging interpretation, lab interpretation, orders, and education, excluding time spent in the performance of separately billed services. Admission and Anticipated Discharge Date Admission Date: September 30, 2024 Subjective Patient seen and examined at bedside. Patient doing well today, no concerns at this time. Review of Systems Review of Systems: CONSTITUTIONAL: Patient denies fevers, chills, sweats and weight changes. EYES: Patient denies any visual symptoms. EARS, NOSE, AND THROAT: No difficulties with hearing. No symptoms of rhinitis or sore throat. CARDIOVASCULAR: Patient denies chest pains, palpitations, orthopnea and paroxysmal nocturnal dyspnea. RESPIRATORY: No dyspnea on exertion, no wheezing or cough. GI: No nausea, vomiting, diarrhea, constipation, abdominal pain, hematochezia or melena. : No urinary hesitancy or dribbling. No nocturia or urinary frequency. No abnormal urethral discharge. MUSCULOSKELETAL: low back pain NEUROLOGIC: No chronic headaches, no seizures. Patient denies numbness, tingling or weakness. PSYCHIATRIC: Patient denies problems with mood disturbance. No problems with anxiety. ENDOCRINE: No excessive urination or excessive thirst. DERMATOLOGIC: Patient denies any rashes or skin changes. Physical Exam Physical Exam: Gen: A&O 2-3 NAD HEENT: NCAT, EOMI, not icteric. External ears normal. No rhinorrhea. Moist mucous membranes. Neck: Supple, full range of motion, no observable masses, No meningeal sign. Lungs: No Respiratory distress. CV: RRR, no edema. Abdomen: Soft, nondistended, No rebound tenderness. MSK: some tenderness in lower back with shooting pain to right knee Skin: No rashes, petechiae, lesions. Normal color per patient. Neuro: Normal Gait, Grossly intact. Psych: Appropriate for situation. Results & Data Results & Data Vital Signs (Past 12 Hours) Vital Signs Temp Pulse Pulse Resp BP Pulse Ox O2 Del Method 10/06/24 11:39 36.7 C 84 16 145/76 H 95 Room Air 10/06/24 08:00 68 10/06/24 07:54 36.6 C 80 16 138/72 95 Room Air 10/06/24 03:45 36.4 C L 71 14 171/83 H 96 Room Air Laboratory Results -personally reviewed, stable creatinine Medications Administered Acetaminophen (Acetaminophen 325 Mg Tab) 650 mg PO Q6 SHERIE Stop: 10/31/24 00:00 Last Admin: 10/06/24 08:38 Dose: 650 mg Documented By: Admin: 10/06/24 02:25 Dose: 650 mg Documented By: Admin: 10/05/24 18:03 Dose: 650 mg Documented By: ESAbdoulaye Admin: 10/05/24 11:36 Dose: 650 mg Documented By: ESAbdoulaye Admin: 10/05/24 06:04 Dose: 650 mg Documented By: Admin: 10/04/24 23:57 Dose: 650 mg Documented By: Admin: 10/04/24 17:55 Dose: 650 mg Documented By: Admin: 10/04/24 11:48 Dose: 650 mg Documented By: Admin: 10/04/24 05:56 Dose: 650 mg Documented By: Admin: 10/04/24 01:06 Dose: 650 mg Documented By: Admin: 10/03/24 18:33 Dose: 650 mg Documented By: Admin: 10/03/24 11:07 Dose: 650 mg Documented By: Admin: 10/03/24 05:06 Dose: 650 mg Documented By: Admin: 10/03/24 00:21 Dose: 650 mg Documented By: Admin: 10/02/24 18:37 Dose: Not Given Documented By: Admin: 10/02/24 12:25 Dose: 650 mg Documented By: Admin: 10/02/24 05:44 Dose: 650 mg Documented By: Admin: 10/01/24 23:38 Dose: 650 mg Documented By: Admin: 10/01/24 18:16 Dose: Not Given Documented By: Admin: 10/01/24 15:55 Dose: 650 mg Documented By: Admin: 10/01/24 05:43 Dose: 650 mg Documented By: Admin: 10/01/24 00:14 Dose: 650 mg Documented By: PETRONA Aspirin (Aspirin 81 Mg Ectab) [facility] [place] Stop: 10/31/24 14:44 Last Admin: 10/02/24 08:47 Dose: 81 mg Documented By: Admin: 10/01/24 15:54 Dose: 81 mg Documented By: JORGE Atorvastatin Calcium (Atorvastatin 40 Mg Tab) 40 mg PO DAILY [facility] Stop: 10/31/24 08:59 Last Admin: 10/06/24 09:14 Dose: 40 mg Documented By: Admin: 10/05/24 08:43 Dose: 40 mg Documented By: Admin: 10/04/24 08:52 Dose: 40 mg Documented By: Admin: 10/03/24 08:28 Dose: 40 mg Documented By: Admin: 10/02/24 08:49 Dose: 40 mg Documented By: Admin: 10/01/24 08:50 Dose: 40 mg Documented By: JORGE Bupropion HCl (Bupropion Xl 150 Mg Tabcr) 150 mg PO DAILY [facility] Stop: 10/31/24 08:59 Last Admin: 10/06/24 09:14 Dose: 150 mg Documented By: Admin: 10/05/24 08:43 Dose: 150 mg Documented By: Admin: 10/04/24 08:52 Dose: 150 mg Documented By: Admin: 10/03/24 08:28 Dose: 150 mg Documented By: Admin: 10/02/24 08:47 Dose: 150 mg Documented By: Admin: 10/01/24 08:50 Dose: 150 mg Documented By: JORGE Clopidogrel Bisulfate (Clopidogrel Bisulfate 75 Mg Tab) 75 mg PO [facility] Stop: 10/31/24 08:59 Last Admin: 10/04/24 08:52 Dose: 75 mg Documented By: Admin: 10/03/24 08:28 Dose: 75 mg Documented By: Admin: 10/02/24 08:49 Dose: 75 mg Documented By: Admin: 10/01/24 08:50 Dose: 75 mg Documented By: JORGE Fluoxetine HCl (Fluoxetine Hcl 20 Mg Cap) 40 mg PO DAILY [facility] Stop: 10/31/24 08:59 Last Admin: 10/06/24 09:14 Dose: 40 mg Documented By: Admin: 10/05/24 08:43 Dose: 40 mg Documented By: Admin: 10/04/24 08:52 Dose: 40 mg Documented By: Admin: 10/03/24 08:29 Dose: 40 mg Documented By: Admin: 10/02/24 08:48 Dose: 40 mg Documented By: Admin: 10/01/24 08:50 Dose: 40 mg Documented By: JORGE Folic Acid (Folic Acid 1 Mg Tab) 1 mg PO QAM SHERIE Stop: 11/05/24 08:59 Last Admin: 10/06/24 09:14 Dose: 1 mg Documented By: WERNER Heparin Sodium (Porcine) (Heparin Sod 5,000 Unit/0.5 Ml Vial) 5,000 units SQ Q12 SHERIE Stop: 10/30/24 20:59 Last Admin: 10/02/24 10:06 Dose: Not Given Documented By: Admin: 10/01/24 20:17 Dose: 5,000 units Documented By: Admin: 10/01/24 08:55 Dose: 5,000 units Documented By: Admin: 09/30/24 21:00 Dose: 5,000 units Documented By: PETRONA Pantoprazole Sodium (Pantoprazole 40 Mg Tab) 40 mg PO BID SHERIE Stop: 10/30/24 20:59 Last Admin: 10/06/24 08:38 Dose: 40 mg Documented By: Admin: 10/05/24 21:47 Dose: 40 mg Documented By: Admin: 10/05/24 08:43 Dose: 40 mg Documented By: Admin: 10/04/24 21:29 Dose: 40 mg Documented By: Admin: 10/04/24 08:53 Dose: 40 mg Documented By: Admin: 10/03/24 20:25 Dose: 40 mg Documented By: Admin: 10/03/24 08:28 Dose: 40 mg Documented By: Admin: 10/02/24 20:17 Dose: 40 mg Documented By: Admin: 10/02/24 08:49 Dose: 40 mg Documented By: Admin: 10/01/24 20:18 Dose: 40 mg Documented By: Admin: 10/01/24 08:50 Dose: 40 mg Documented By: Admin: 09/30/24 21:00 Dose: 40 mg Documented By: PETRONA Thiamine HCl (Thiamine Hcl 100 Mg Tab) 100 mg PO [facility] Stop: 11/05/24 08:59 Last Admin: 10/06/24 09:14 Dose: 100 mg Documented By: WERNER Trazodone HCl (Trazodone Hcl 50 Mg Tab) 50 mg PO [facility] Stop: 10/30/24 20:59 Last Admin: 10/05/24 21:47 Dose: 50 mg Documented By: Admin: 10/04/24 21:29 Dose: 50 mg Documented By: Admin: 10/03/24 20:25 Dose: 50 mg Documented By: Admin: 10/02/24 20:16 Dose: 50 mg Documented By: Admin: 10/01/24 20:17 Dose: 50 mg Documented By: Admin: 09/30/24 21:00 Dose: 50 mg Documented By: PETRONA Vitamin B Complex (Vitamin B Complex Tab) 1 tab PO [facility] Stop: 11/05/24 08:59 Last Admin: 10/06/24 09:14 Dose: 1 tab Documented By: WERNER
--- NOTE | 2024-10-07 10:01 | Hospitalist Progress Note ---
Date of Service October 07, 2024 Assessment & Plan (1) Right sided weakness: (2) Confusion: (3) Dizziness: (4) Depression: (5) HTN (hypertension): (6) Dyslipidemia: (7) Diabetes mellitus, type II: (8) COPD (chronic obstructive pulmonary disease): (9) Migraine: Plan 74 year old male with PMH significant for DMII, HTN, HLD, COPD, migraine, depression, and history of L pontine stroke who presented to the ED today with confusion, right sided weakness, and slurred speech who is being admitted for a stroke workup. Right sided weakness History of L pontine CVA -Patient with weakness in RUE and RLE -Unknown if this is related to previous L pontine stroke or new weakness -MRI w/wo contrast negative for acute stroke Plan: -PT/OTconsults -Consult neurology - appreciate recs -Continue plavix and atorvastatin -CTA head and neck- neuro recommending outpt neurovascular followup -continue aspirin 81mg daily for 3 weeks -Neurology f/u -MRI lumbar spine ordered- noting severe degenerative disease and mild compression of cauda equina, awaiting plavix washout of 5 days, earliest for procedure would be 10/08 -awaiting procedure tentatively on 10/11/2024 Acute Encephalopathy Possible underlying dementia -Could be due to stroke, post-fall concussion, declining neurocognitive function, polypharmacy -Patient seen by Neurology Dr. Holm outpatient with workup ongoing (EEG negative for epilepsy per records) and follow up appointment scheduled for 01/23/2025 - notes family hx of parkinsons for the pt UA unremarkable TSH normal vitamin B12 normal lyme screen negative -likely mild to moderate dementia Plan: -Delirium precautions. Frequent reorientation, avoid sedating medications as able -f/u outpatient, start folic acid, thiamine, B12 supplementation Dizziness -Could be due to stroke, post-fall concussion, polypharmacy -Pt currently being worked up for dementia, fam hx of parkinsons, question of associated autonomic dysfunction Plan: -Holding home propranolol and losartan -continue fluoxetine at 40 mg to decrease polypharmacy, help with improving encephalopathy Depression/anxiety -Continue bupropion, buspirone, fluoxetine, trazodone, lorazepam Hypertension -Hold losartan due to stroke workup -Home propranolol also on hold Dyslipidemia -Lipid panel: Chol 120 LDL 53 HDL 42 Tri 124 on 09/06/2024 per records -Continue atorvastatin DMII -Diet controlled COPD -Controlled -Albuterol PRN GERD -Continue pantoprazole and tums PRN Migraine -Controlled - rizatriptan PRN -Hold propranolol due to stroke workup and bradycardia I spent a total of 40 minutes in direct patient care, including [id number] time with the patient and/or family, reviewing medical records, ordering and reviewing diagnostic tests, and coordinating care with other healthcare providers. This time includes: history taking, physical examination, medical decision making, counseling, ECG interpretation, imaging interpretation, lab interpretation, orders, and education, excluding time spent in the performance of separately billed services. Admission and Anticipated Discharge Date Admission Date: September 30, 2024 Subjective Patient seen and examined at bedside. Patient doing well today, no concerns at this time. Surgery tentatively planned for 10/11/2024. Review of Systems Review of Systems: CONSTITUTIONAL: Patient denies fevers, chills, sweats and weight changes. EYES: Patient denies any visual symptoms. EARS, NOSE, AND THROAT: No difficulties with hearing. No symptoms of rhinitis or sore throat. CARDIOVASCULAR: Patient denies chest pains, palpitations, orthopnea and paroxysmal nocturnal dyspnea. RESPIRATORY: No dyspnea on exertion, no wheezing or cough. GI: No nausea, vomiting, diarrhea, constipation, abdominal pain, hematochezia or melena. : No urinary hesitancy or dribbling. No nocturia or urinary frequency. No abnormal urethral discharge. MUSCULOSKELETAL: low back pain NEUROLOGIC: No chronic headaches, no seizures. Patient denies numbness, tingling or weakness. PSYCHIATRIC: Patient denies problems with mood disturbance. No problems with anxiety. ENDOCRINE: No excessive urination or excessive thirst. DERMATOLOGIC: Patient denies any rashes or skin changes. Physical Exam Physical Exam: Gen: A&O 2-3 NAD HEENT: NCAT, EOMI, not icteric. External ears normal. No rhinorrhea. Moist mucous membranes. Neck: Supple, full range of motion, no observable masses, No meningeal sign. Lungs: No Respiratory distress. CV: RRR, no edema. Abdomen: Soft, nondistended, No rebound tenderness. MSK: some tenderness in lower back with shooting pain to right knee Skin: No rashes, petechiae, lesions. Normal color per patient. Neuro: Normal Gait, Grossly intact. Psych: Appropriate for situation. Results & Data Results & Data Vital Signs (Past 12 Hours) Vital Signs Temp Pulse Pulse Resp BP Pulse Ox O2 Del Method 10/07/24 08:14 36.6 C 67 16 161/79 H 94 Room Air 10/07/24 05:39 64 10/07/24 04:10 36.5 C 71 16 158/74 H 93 Room Air 10/06/24 22:07 36.5 C 63 18 139/69 94 Room Air 10/06/24 22:03 61 Medications Administered Acetaminophen (Acetaminophen 325 Mg Tab) 650 mg PO Q6 SHERIE Stop: 10/31/24 00:00 Last Admin: 10/07/24 11:49 Dose: 650 mg Documented By: Admin: 10/07/24 06:00 Dose: 650 mg Documented By: Admin: 10/07/24 03:25 Dose: Not Given Documented By: Admin: 10/06/24 17:55 Dose: 650 mg Documented By: [email or web address] Admin: 10/06/24 12:49 Dose: 650 mg Documented By: Admin: 10/06/24 08:38 Dose: 650 mg Documented By: Admin: 10/06/24 02:25 Dose: 650 mg Documented By: Admin: 10/05/24 18:03 Dose: 650 mg Documented By: Admin: 10/05/24 11:36 Dose: 650 mg Documented By: Admin: 10/05/24 06:04 Dose: 650 mg Documented By: Admin: 10/04/24 23:57 Dose: 650 mg Documented By: Admin: 10/04/24 17:55 Dose: 650 mg Documented By: Admin: 10/04/24 11:48 Dose: 650 mg Documented By: Admin: 10/04/24 05:56 Dose: 650 mg Documented By: Admin: 10/04/24 01:06 Dose: 650 mg Documented By: Admin: 10/03/24 18:33 Dose: 650 mg Documented By: Admin: 10/03/24 11:07 Dose: 650 mg Documented By: Admin: 10/03/24 05:06 Dose: 650 mg Documented By: Admin: 10/03/24 00:21 Dose: 650 mg Documented By: Admin: 10/02/24 18:37 Dose: Not Given Documented By: Admin: 10/02/24 12:25 Dose: 650 mg Documented By: Admin: 10/02/24 05:44 Dose: 650 mg Documented By: Admin: 10/01/24 23:38 Dose: 650 mg Documented By: Admin: 10/01/24 18:16 Dose: Not Given Documented By: Admin: 10/01/24 15:55 Dose: 650 mg Documented By: Admin: 10/01/24 05:43 Dose: 650 mg Documented By: Admin: 10/01/24 00:14 Dose: 650 mg Documented By: PETRONA Aspirin (Aspirin 81 Mg Ectab) 81 mg PO QA SHERIE Stop: 10/31/24 14:44 Last Admin: 10/02/24 08:47 Dose: 81 mg Documented By: Admin: 10/01/24 15:54 Dose: 81 mg Documented By: JORGE Atorvastatin Calcium (Atorvastatin 40 Mg Tab) 40 mg PO DAILY [facility] Stop: 10/31/24 08:59 Last Admin: 10/07/24 08:44 Dose: 40 mg Documented By: Admin: 10/06/24 09:14 Dose: 40 mg Documented By: Admin: 10/05/24 08:43 Dose: 40 mg Documented By: Admin: 10/04/24 08:52 Dose: 40 mg Documented By: Admin: 10/03/24 08:28 Dose: 40 mg Documented By: Admin: 10/02/24 08:49 Dose: 40 mg Documented By: Admin: 10/01/24 08:50 Dose: 40 mg Documented By: JORGE Bupropion HCl (Bupropion Xl 150 Mg Tabcr) 150 mg PO DAILY [facility] Stop: 10/31/24 08:59 Last Admin: 10/07/24 08:43 Dose: 150 mg Documented By: Admin: 10/06/24 09:14 Dose: 150 mg Documented By: Admin: 10/05/24 08:43 Dose: 150 mg Documented By: Admin: 10/04/24 08:52 Dose: 150 mg Documented By: Admin: 10/03/24 08:28 Dose: 150 mg Documented By: Admin: 10/02/24 08:47 Dose: 150 mg Documented By: Admin: 10/01/24 08:50 Dose: 150 mg Documented By: JORGE Clopidogrel Bisulfate (Clopidogrel Bisulfate 75 Mg Tab) [facility]: 10/31/24 08:59 Last Admin: 10/04/24 08:52 Dose: 75 mg Documented By: Admin: 10/03/24 08:28 Dose: 75 mg Documented By: Admin: 10/02/24 08:49 Dose: 75 mg Documented By: Admin: 10/01/24 08:50 Dose: 75 mg Documented By: JORGE Fluoxetine HCl (Fluoxetine Hcl 20 Mg Cap) 40 mg PO DAILY [facility] Stop: 10/31/24 08:59 Last Admin: 10/07/24 08:43 Dose: 40 mg Documented By: Admin: 10/06/24 09:14 Dose: 40 mg Documented By: Admin: 10/05/24 08:43 Dose: 40 mg Documented By: Admin: 10/04/24 08:52 Dose: 40 mg Documented By: Admin: 10/03/24 08:29 Dose: 40 mg Documented By: Admin: 10/02/24 08:48 Dose: 40 mg Documented By: Admin: 10/01/24 08:50 Dose: 40 mg Documented By: JORGE Folic Acid (Folic Acid 1 Mg Tab) 1 mg PO [facility] Stop: 11/05/24 08:59 Last Admin: 10/07/24 08:43 Dose: 1 mg Documented By: Admin: 10/06/24 09:14 Dose: 1 mg Documented By: WERNER Heparin Sodium (Porcine) (Heparin Sod 5,000 Unit/0.5 Ml Vial) 5,000 units SQ Q12 [facility]ERIE Stop: 10/30/24 20:59 Last Admin: 10/02/24 10:06 Dose: Not Given Documented By: Admin: 10/01/24 20:17 Dose: 5,000 units Documented By: Admin: 10/01/24 08:55 Dose: 5,000 units Documented By: Admin: 09/30/24 21:00 Dose: 5,000 units Documented By: PETRONA Pantoprazole Sodium (Pantoprazole 40 Mg Tab) 40 mg PO BID [facility] Stop: 10/30/24 20:59 Last Admin: 10/07/24 08:43 Dose: 40 mg Documented By: Admin: 10/06/24 20:09 Dose: 40 mg Documented By: Admin: 10/06/24 08:38 Dose: 40 mg Documented By: Admin: 10/05/24 21:47 Dose: 40 mg Documented By: Admin: 10/05/24 08:43 Dose: 40 mg Documented By: Admin: 10/04/24 21:29 Dose: 40 mg Documented By: Admin: 10/04/24 08:53 Dose: 40 mg Documented By: Admin: 10/03/24 20:25 Dose: 40 mg Documented By: Admin: 10/03/24 08:28 Dose: 40 mg Documented By: Admin: 10/02/24 20:17 Dose: 40 mg Documented By: Admin: 10/02/24 08:49 Dose: 40 mg Documented By: Admin: 10/01/24 20:18 Dose: 40 mg Documented By: Admin: 10/01/24 08:50 Dose: 40 mg Documented By: Admin: 09/30/24 21:00 Dose: 40 mg Documented By: PETRONA Thiamine HCl (Thiamine Hcl 100 Mg Tab) 100 mg PO QA [facility] Stop: 11/05/24 08:59 Last Admin: 10/07/24 08:44 Dose: 100 mg Documented By: Admin: 10/06/24 09:14 Dose: 100 mg Documented By: WERNER Trazodone HCl (Trazodone Hcl 50 Mg Tab) 50 mg PO [facility] Stop: 10/30/24 20:59 Last Admin: 10/06/24 20:09 Dose: 50 mg Documented By: Admin: 10/05/24 21:47 Dose: 50 mg Documented By: Admin: 10/04/24 21:29 Dose: 50 mg Documented By: Admin: 10/03/24 20:25 Dose: 50 mg Documented By: Admin: 10/02/24 20:16 Dose: 50 mg Documented By: Admin: 10/01/24 20:17 Dose: 50 mg Documented By: Admin: 09/30/24 21:00 Dose: 50 mg Documented By: PETRONA Vitamin B Complex (Vitamin B Complex Tab) 1 tab PO QA [facility] Stop: 11/05/24 08:59 Last Admin: 10/07/24 08:43 Dose: 1 tab Documented By: Admin: 10/06/24 09:14 Dose: 1 tab Documented By: WERNER
[2024-10-07] MEDS: traMADol HCL 50 MG TABLET PO STA (20:47)
--- NOTE | 2024-10-08 11:56 | Hospitalist Progress Note ---
Date of Service October 08, 2024 Assessment & Plan (1) Right sided weakness: (2) Confusion: (3) Dizziness: (4) Depression: (5) HTN (hypertension): (6) Dyslipidemia: (7) Diabetes mellitus, type II: (8) COPD (chronic obstructive pulmonary disease): (9) Migraine: Plan 74 year old male with PMH significant for DMII, HTN, HLD, COPD, migraine, depression, and history of L pontine stroke who presented to the ED today with confusion, right sided weakness, and slurred speech who is being admitted for a stroke workup. Right sided weakness History of L pontine CVA -Patient with weakness in RUE and RLE -Unknown if this is related to previous L pontine stroke or new weakness -MRI w/wo contrast negative for acute stroke Plan: -PT/OTconsults -Consult neurology - appreciate recs -Continue plavix and atorvastatin -CTA head and neck- neuro recommending outpt neurovascular followup -continue aspirin 81mg daily for 3 weeks -Neurology f/u -MRI lumbar spine ordered- noting severe degenerative disease and mild compression of cauda equina, awaiting plavix washout of 5 days, earliest for procedure would be 10/08 -awaiting procedure tentatively on 10/11/2024 Mild Dementia Metabolic Encephalopathy 2/2 Polypharmacy, resolving -Could be due to stroke, post-fall concussion, declining neurocognitive function, polypharmacy -Patient seen by Neurology Dr. Holm outpatient with workup ongoing (EEG negative for epilepsy per records) and follow up appointment scheduled for 01/23/2025 - notes family hx of parkinsons for the pt UA unremarkable TSH normal vitamin B12 normal lyme screen negative -likely mild to moderate dementia Plan: -Delirium precautions. Frequent reorientation, avoid sedating medications as able -f/u outpatient, start folic acid, thiamine, B12 supplementation -add famotidine daily for upset stomach Dizziness -Could be due to stroke, post-fall concussion, polypharmacy -Pt currently being worked up for dementia, fam hx of parkinsons, question of associated autonomic dysfunction Plan: -Holding home propranolol and losartan -continue fluoxetine at 40 mg to decrease polypharmacy, help with improving encephalopathy Depression/anxiety -Continue bupropion, buspirone, fluoxetine, trazodone, lorazepam Hypertension -Hold losartan due to stroke workup -Home propranolol also on hold Dyslipidemia -Lipid panel: Chol 120 LDL 53 HDL 42 Tri 124 on 09/06/2024 per records -Continue atorvastatin DMII -Diet controlled COPD -Controlled -Albuterol PRN GERD -Continue pantoprazole and tums PRN Migraine -Controlled - rizatriptan PRN -Hold propranolol due to stroke workup and bradycardia I spent a total of 45 minutes in direct patient care, including [id number] time with the patient and/or family, reviewing medical records, ordering and reviewing diagnostic tests, and coordinating care with other healthcare providers. This time includes: history taking, physical examination, medical decision making, counseling, ECG interpretation, imaging interpretation, lab interpretation, orders, and education, excluding time spent in the performance of separately billed services. Admission and Anticipated Discharge Date Admission Date: September 30, 2024 Subjective Patient seen and examined at bedside. Patient doing well today, has an upset stomach, otherwise doing well. Review of Systems Review of Systems: CONSTITUTIONAL: Patient denies fevers, chills, sweats and weight changes. EYES: Patient denies any visual symptoms. EARS, NOSE, AND THROAT: No difficulties with hearing. No symptoms of rhinitis or sore throat. CARDIOVASCULAR: Patient denies chest pains, palpitations, orthopnea and paroxysmal nocturnal dyspnea. RESPIRATORY: No dyspnea on exertion, no wheezing or cough. GI: upset stomach : No urinary hesitancy or dribbling. No nocturia or urinary frequency. No abnormal urethral discharge. MUSCULOSKELETAL: low back pain NEUROLOGIC: No chronic headaches, no seizures. Patient denies numbness, tingling or weakness. PSYCHIATRIC: Patient denies problems with mood disturbance. No problems with anxiety. ENDOCRINE: No excessive urination or excessive thirst. DERMATOLOGIC: Patient denies any rashes or skin changes. Physical Exam Physical Exam: Gen: A&O 2-3 NAD HEENT: NCAT, EOMI, not icteric. External ears normal. No rhinorrhea. Moist muc ous membranes. Neck: Supple, full range of motion, no observable masses, No meningeal sign. Lungs: No Respiratory distress. CV: RRR, no edema. Abdomen: Soft, nondistended, No rebound tenderness. MSK: some tenderness in lower back with shooting pain to right knee Skin: No rashes, petechiae, lesions. Normal color per patient. Neuro: Normal Gait, Grossly intact. Psych: Appropriate for situation. Results & Data Results & Data Vital Signs (Past 12 Hours) Vital Signs Temp Pulse Pulse Resp BP Pulse Ox O2 Del Method 10/08/24 11:35 36.4 C L 88 20 145/87 H 97 Room Air 10/08/24 07:36 36.5 C 67 20 161/78 H 93 Room Air 10/08/24 07:17 65 10/08/24 03:47 36.6 C 64 18 163/79 H 94 Room Air Medications Administered Acetaminophen (Acetaminophen 325 Mg Tab) 650 mg PO Q6 SHERIE Stop: 10/31/24 00:00 Last Admin: 10/08/24 11:40 Dose: 650 mg Documented By: Admin: 10/08/24 06:19 Dose: 650 mg Documented By: [id number] Admin: 10/08/24 02:21 Dose: Not Given Documented By: [id number] Admin: 10/07/24 18:23 Dose: 650 mg Documented By: Admin: 10/07/24 11:49 Dose: 650 mg Documented By: Admin: 10/07/24 06:00 Dose: 650 mg Documented By: Admin: 10/07/24 03:25 Dose: Not Given Documented By: Admin: 10/06/24 17:55 Dose: 650 mg Documented By: Admin: 10/06/24 12:49 Dose: 650 mg Documented By: Admin: 10/06/24 08:38 Dose: 650 mg Documented By: Admin: 10/06/24 02:25 Dose: 650 mg Documented By: Admin: 10/05/24 18:03 Dose: 650 mg Documented By: Admin: 10/05/24 11:36 Dose: 650 mg Documented By: Admin: 10/05/24 06:04 Dose: 650 mg Documented By: Admin: 10/04/24 23:57 Dose: 650 mg Documented By: Admin: 10/04/24 17:55 Dose: 650 mg Documented By: Admin: 10/04/24 11:48 Dose: 650 mg Documented By: Admin: 10/04/24 05:56 Dose: 650 mg Documented By: Admin: 10/04/24 01:06 Dose: 650 mg Documented By: Admin: 10/03/24 18:33 Dose: 650 mg Documented By: Admin: 10/03/24 11:07 Dose: 650 mg Documented By: Admin: 10/03/24 05:06 Dose: 650 mg Documented By: Admin: 10/03/24 00:21 Dose: 650 mg Documented By: Admin: 10/02/24 18:37 Dose: Not Given Documented By: Admin: 10/02/24 12:25 Dose: 650 mg Documented By: Admin: 10/02/24 05:44 Dose: 650 mg Documented By: Admin: 10/01/24 23:38 Dose: 650 mg Documented By: Admin: 10/01/24 18:16 Dose: Not Given Documented By: Admin: 10/01/24 15:55 Dose: 650 mg Documented By: Admin: 10/01/24 05:43 Dose: 650 mg Documented By: Admin: 10/01/24 00:14 Dose: 650 mg Documented By: PETRONA Aspirin (Aspirin 81 Mg Ectab) 81 mg PO QAM [facility]IE Stop: 10/31/24 14:44 Last Admin: 10/02/24 08:47 Dose: 81 mg Documented By: Admin: 10/01/24 15:54 Dose: 81 mg Documented By: ABIS Atorvastatin Calcium (Atorvastatin 40 Mg Tab) 40 mg PO DAILY [facility] Stop: 10/31/24 08:59 Last Admin: 10/08/24 09:32 Dose: 40 mg Documented By: Admin: 10/07/24 08:44 Dose: 40 mg Documented By: Admin: 10/06/24 09:14 Dose: 40 mg Documented By: Admin: 10/05/24 08:43 Dose: 40 mg Documented By: ESAbdoulaye Admin: 10/04/24 08:52 Dose: 40 mg Documented By: ESAbdoulaye Admin: 10/03/24 08:28 Dose: 40 mg Documented By: Admin: 10/02/24 08:49 Dose: 40 mg Documented By: Admin: 10/01/24 08:50 Dose: 40 mg Documented By: ABIS Bupropion HCl (Bupropion Xl 150 Mg Tabcr) 150 mg PO DAILY [facility] Stop: 10/31/24 08:59 Last Admin: 10/08/24 09:32 Dose: 150 mg Documented By: Admin: 10/07/24 08:43 Dose: 150 mg Documented By: Admin: 10/06/24 09:14 Dose: 150 mg Documented By: Admin: 10/05/24 08:43 Dose: 150 mg Documented By: Admin: 10/04/24 08:52 Dose: 150 mg Documented By: Admin: 10/03/24 08:28 Dose: 150 mg Documented By: Admin: 10/02/24 08:47 Dose: 150 mg Documented By: Admin: 10/01/24 08:50 Dose: 150 mg Documented By: JORGE Clopidogrel Bisulfate (Clopidogrel Bisulfate 75 Mg Tab) 75 mg PO [facility] Stop: 10/31/24 08:59 Last Admin: 10/04/24 08:52 Dose: 75 mg Documented By: Admin: 10/03/24 08:28 Dose: 75 mg Documented By: Admin: 10/02/24 08:49 Dose: 75 mg Documented By: Admin: 10/01/24 08:50 Dose: 75 mg Documented By: JORGE Fluoxetine HCl (Fluoxetine Hcl 20 Mg Cap) 40 mg PO DAILY [facility] Stop: 10/31/24 08:59 Last Admin: 10/08/24 09:32 Dose: 40 mg Documented By: Admin: 10/07/24 08:43 Dose: 40 mg Documented By: Admin: 10/06/24 09:14 Dose: 40 mg Documented By: Admin: 10/05/24 08:43 Dose: 40 mg Documented By: Admin: 10/04/24 08:52 Dose: 40 mg Documented By: Admin: 10/03/24 08:29 Dose: 40 mg Documented By: Admin: 10/02/24 08:48 Dose: 40 mg Documented By: Admin: 10/01/24 08:50 Dose: 40 mg Documented By: JORGE Folic Acid (Folic Acid 1 Mg Tab) 1 mg PO [facility] Stop: 11/05/24 08:59 Last Admin: 10/08/24 09:33 Dose: 1 mg Documented By: Admin: 10/07/24 08:43 Dose: 1 mg Documented By: Admin: 10/06/24 09:14 Dose: 1 mg Documented By: WERNER Heparin Sodium (Porcine) (Heparin Sod 5,000 Unit/0.5 Ml Vial) 5,000 units SQ Q12 [facility] Stop: 10/30/24 20:59 Last Admin: 10/08/24 09:33 Dose: 5,000 units Documented By: ESAbdoulaye Admin: 10/07/24 20:46 Dose: 5,000 units Documented By: [id number] Admin: 10/02/24 10:06 Dose: Not Given Documented By: Admin: 10/01/24 20:17 Dose: 5,000 units Documented By: Admin: 10/01/24 08:55 Dose: 5,000 units Documented By: Admin: 09/30/24 21:00 Dose: 5,000 units Documented By: PETRONA Pantoprazole Sodium (Pantoprazole 40 Mg Tab) 40 mg PO BID [facility] Stop: 10/30/24 20:59 Last Admin: 10/08/24 09:33 Dose: 40 mg Documented By: Admin: 10/07/24 20:47 Dose: 40 mg Documented By: [id number] Admin: 10/07/24 08:43 Dose: 40 mg Documented By: Admin: 10/06/24 20:09 Dose: 40 mg Documented By: Admin: 10/06/24 08:38 Dose: 40 mg Documented By: Admin: 10/05/24 21:47 Dose: 40 mg Documented By: Admin: 10/05/24 08:43 Dose: 40 mg Documented By: ESAbdoulaye Admin: 10/04/24 21:29 Dose: 40 mg Documented By: Admin: 10/04/24 08:53 Dose: 40 mg Documented By: Admin: 10/03/24 20:25 Dose: 40 mg Documented By: Admin: 10/03/24 08:28 Dose: 40 mg Documented By: Admin: 10/02/24 20:17 Dose: 40 mg Documented By: Admin: 10/02/24 08:49 Dose: 40 mg Documented By: Admin: 10/01/24 20:18 Dose: 40 mg Documented By: Admin: 10/01/24 08:50 Dose: 40 mg Documented By: Admin: 09/30/24 21:00 Dose: 40 mg Documented By: PETRONA Thiamine HCl (Thiamine Hcl 100 Mg Tab) 100 mg PO QAM [facility] Stop: 11/05/24 08:59 Last Admin: 10/08/24 09:33 Dose: 100 mg Documented By: Admin: 10/07/24 08:44 Dose: 100 mg Documented By: Admin: 10/06/24 09:14 Dose: 100 mg Documented By: WERNER Trazodone HCl (Trazodone Hcl 50 Mg Tab) 50 mg PO HS [facility] Stop: 10/30/24 20:59 Last Admin: 10/07/24 20:47 Dose: 50 mg Documented By: [id number] Admin: 10/06/24 20:09 Dose: 50 mg Documented By: Admin: 10/05/24 21:47 Dose: 50 mg Documented By: Admin: 10/04/24 21:29 Dose: 50 mg Documented By: Admin: 10/03/24 20:25 Dose: 50 mg Documented By: Admin: 10/02/24 20:16 Dose: 50 mg Documented By: Admin: 10/01/24 20:17 Dose: 50 mg Documented By: Admin: 09/30/24 21:00 Dose: 50 mg Documented By: PETRONA Vitamin B Complex (Vitamin B Complex Tab) 1 tab PO QA [facility] Stop: 11/05/24 08:59 Last Admin: 10/08/24 09:33 Dose: 1 tab Documented By: Admin: 10/07/24 08:43 Dose: 1 tab Documented By: Admin: 10/06/24 09:14 Dose: 1 tab Documented By: WERNER
[2024-10-08] MEDS: FAMOTIDINE 20 MG TAB PO SCH (12:10)
[2024-10-08] MEDS: traMADol HCL 50 MG TABLET PO STA (19:32)
[2024-10-09 08:03] LABS: BUN Creatinine Ratio 21.1 (10-20); Calcium 9.2 mg/dl (8.6-10.3); Creatinine Clr Calc Pharmacy 83.8 ml/min; Potassium 3.8 mmol/L (3.5-5.1)
--- NOTE | 2024-10-09 11:55 | Hospitalist Progress Note ---
Date of Service October 09, 2024 Assessment & Plan (1) Right sided weakness: (2) Confusion: (3) Dizziness: (4) Depression: (5) HTN (hypertension): (6) Dyslipidemia: (7) Diabetes mellitus, type II: (8) COPD (chronic obstructive pulmonary disease): (9) Migraine: Plan 74 year old male with PMH significant for DMII, HTN, HLD, COPD, migraine, depression, and history of L pontine stroke who presented to the ED today with confusion, right sided weakness, and slurred speech who is being admitted for a stroke workup. Right sided weakness History of L pontine CVA -Patient with weakness in RUE and RLE -Unknown if this is related to previous L pontine stroke or new weakness -MRI w/wo contrast negative for acute stroke Plan: -PT/OTconsults -Consult neurology - appreciate recs -Continue plavix and atorvastatin -CTA head and neck- neuro recommending outpt neurovascular followup -continue aspirin 81mg daily for 3 weeks -Neurology f/u -MRI lumbar spine ordered- noting severe degenerative disease and mild compression of cauda equina, awaiting plavix washout of 5 days, earliest for procedure would be 10/08 -awaiting procedure tentatively on 10/11/2024 Mild Dementia Metabolic Encephalopathy 2/2 Polypharmacy, resolving -Could be due to stroke, post-fall concussion, declining neurocognitive function, polypharmacy -Patient seen by Neurology Dr. Holm outpatient with workup ongoing (EEG negative for epilepsy per records) and follow up appointment scheduled for 01/23/2025 - notes family hx of parkinsons for the pt UA unremarkable TSH normal vitamin B12 normal lyme screen negative -likely mild to moderate dementia Plan: -Delirium precautions. Frequent reorientation, avoid sedating medications as able -f/u outpatient, start folic acid, thiamine, B12 supplementation -continue famotidine daily for upset stomach -continue to hold tramadol in setting of dementia and tramadol having significant serotinergic effects Dizziness -Could be due to stroke, post-fall concussion, polypharmacy -Pt currently being worked up for dementia, fam hx of parkinsons, question of associated autonomic dysfunction Plan: -Holding home propranolol and losartan -continue fluoxetine at 40 mg to decrease polypharmacy, help with improving encephalopathy Depression/anxiety -Continue bupropion, buspirone, fluoxetine, trazodone, lorazepam Hypertension -Hold losartan due to stroke workup -Home propranolol also on hold Dyslipidemia -Lipid panel: Chol 120 LDL 53 HDL 42 Tri 124 on 09/06/2024 per records -Continue atorvastatin DMII -Diet controlled COPD -Controlled -Albuterol PRN GERD -Continue pantoprazole and tums PRN Migraine -Controlled - rizatriptan PRN -Hold propranolol due to stroke workup and bradycardia I spent a total of 40 minutes in direct patient care, including [id number] time with the patient and/or family, reviewing medical records, ordering and reviewing diagnostic tests, and coordinating care with other healthcare providers. This time includes: history taking, physical examination, medical decision making, counseling, ECG interpretation, imaging interpretation, lab interpretation, orders, and education, excluding time spent in the performance of separately billed services. Admission and Anticipated Discharge Date Admission Date: September 30, 2024 Subjective Patient seen and examined at bedside. patient doing well today, no concerns at this time. Review of Systems Review of Systems: CONSTITUTIONAL: Patient denies fevers, chills, sweats and weight changes. EYES: Patient denies any visual symptoms. EARS, NOSE, AND THROAT: No difficulties with hearing. No symptoms of rhinitis or sore throat. CARDIOVASCULAR: Patient denies chest pains, palpitations, orthopnea and paroxysmal nocturnal dyspnea. RESPIRATORY: No dyspnea on exertion, no wheezing or cough. GI: upset stomach : No urinary hesitancy or dribbling. No nocturia or urinary frequency. No abnormal urethral discharge. MUSCULOSKELETAL: low back pain NEUROLOGIC: No chronic headaches, no seizures. Patient denies numbness, tingling or weakness. PSYCHIATRIC: Patient denies problems with mood disturbance. No problems with anxiety. ENDOCRINE: No excessive urination or excessive thirst. DERMATOLOGIC: Patient denies any rashes or skin changes. Physical Exam Physical Exam: Gen: A&O 2-3 NAD HEENT: NCAT, EOMI, not icteric. External ears normal. No rhinorrhea. Moist mucous membranes. Neck: Supple, full range of motion, no observable masses, No meningeal sign. Lungs: No Respiratory distress. CV: RRR, no edema. Abdomen: Soft, nondistended, No rebound tenderness. MSK: some tenderness in lower back with shooting pain to right knee Skin: No rashes, petechiae, lesions. Normal color per patient. Neuro: Normal Gait, Grossly intact. Psych: Appropriate for situation. Results & Data Results & Data Vital Signs (Past 12 Hours) Vital Signs Temp Pulse Pulse Resp BP Pulse Ox O2 Del Method 10/09/24 11:53 36.6 C 78 18 140/78 94 Room Air 10/09/24 07:44 36.5 C 73 16 157/80 H 95 Room Air 10/09/24 07:23 75 10/09/24 04:09 36.5 C 72 18 164/83 H 96 Room Air Laboratory Results -personally reviewed, creatinine at baseline Medications Administered Acetaminophen (Acetaminophen 325 Mg Tab) 650 mg PO Q6 SHERIE Stop: 10/31/24 00:00 Last Admin: 10/09/24 05:32 Dose: 650 mg Documented By: [id number] Admin: 10/09/24 01:46 Dose: Not Given Documented By: [id number] Admin: 10/08/24 17:56 Dose: 650 mg Documented By: Admin: 10/08/24 11:40 Dose: 650 mg Documented By: Admin: 10/08/24 06:19 Dose: 650 mg Documented By: [id number] Admin: 10/08/24 02:21 Dose: Not Given Documented By: [id number] Admin: 10/07/24 18:23 Dose: 650 mg Documented By: Admin: 10/07/24 11:49 Dose: 650 mg Documented By: Admin: 10/07/24 06:00 Dose: 650 mg Documented By: Admin: 10/07/24 03:25 Dose: Not Given Documented By: Admin: 10/06/24 17:55 Dose: 650 mg Documented By: Admin: 10/06/24 12:49 Dose: 650 mg Documented By: Admin: 10/06/24 08:38 Dose: 650 mg Documented By: Admin: 10/06/24 02:25 Dose: 650 mg Documented By: Admin: 10/05/24 18:03 Dose: 650 mg Documented By: [email or web address] Admin: 10/05/24 11:36 Dose: 650 mg Documented By: Admin: 10/05/24 06:04 Dose: 650 mg Documented By: Admin: 10/04/24 23:57 Dose: 650 mg Documented By: Admin: 10/04/24 17:55 Dose: 650 mg Documented By: Admin: 10/04/24 11:48 Dose: 650 mg Documented By: Admin: 10/04/24 05:56 Dose: 650 mg Documented By: Admin: 10/04/24 01:06 Dose: 650 mg Documented By: Admin: 10/03/24 18:33 Dose: 650 mg Documented By: Admin: 10/03/24 11:07 Dose: 650 mg Documented By: Admin: 10/03/24 05:06 Dose: 650 mg Documented By: Admin: 10/03/24 00:21 Dose: 650 mg Documented By: Admin: 10/02/24 18:37 Dose: Not Given Documented By: Admin: 10/02/24 12:25 Dose: 650 mg Documented By: Admin: 10/02/24 05:44 Dose: 650 mg Documented By: Admin: 10/01/24 23:38 Dose: 650 mg Documented By: Admin: 10/01/24 18:16 Dose: Not Given Documented By: Admin: 10/01/24 15:55 Dose: 650 mg Documented By: Admin: 10/01/24 05:43 Dose: 650 mg Documented By: Admin: 10/01/24 00:14 Dose: 650 mg Documented By: PETRONA Aspirin (Aspirin 81 Mg Ectab) [address] [facility] Stop: 10/31/24 14:44 Last Admin: 10/02/24 08:47 Dose: 81 mg Documented By: Admin: 10/01/24 15:54 Dose: 81 mg Documented By: JORGE Atorvastatin Calcium (Atorvastatin 40 Mg Tab) 40 mg PO DAILY [facility] Stop: 10/31/24 08:59 Last Admin: 10/09/24 09:42 Dose: 40 mg Documented By: Admin: 10/08/24 09:32 Dose: 40 mg Documented By: Admin: 10/07/24 08:44 Dose: 40 mg Documented By: Admin: 10/06/24 09:14 Dose: 40 mg Documented By: Admin: 10/05/24 08:43 Dose: 40 mg Documented By: Admin: 10/04/24 08:52 Dose: 40 mg Documented By: Admin: 10/03/24 08:28 Dose: 40 mg Documented By: Admin: 10/02/24 08:49 Dose: 40 mg Documented By: Admin: 10/01/24 08:50 Dose: 40 mg Documented By: JORGE Bupropion HCl (Bupropion Xl 150 Mg Tabcr) 150 mg PO DAILY SHERIE Stop: 10/31/24 08:59 Last Admin: 10/09/24 09:42 Dose: 150 mg Documented By: [email or web address] Admin: 10/08/24 09:32 Dose: 150 mg Documented By: Admin: 10/07/24 08:43 Dose: 150 mg Documented By: Admin: 10/06/24 09:14 Dose: 150 mg Documented By: Admin: 10/05/24 08:43 Dose: 150 mg Documented By: Admin: 10/04/24 08:52 Dose: 150 mg Documented By: Admin: 10/03/24 08:28 Dose: 150 mg Documented By: Admin: 10/02/24 08:47 Dose: 150 mg Documented By: Admin: 10/01/24 08:50 Dose: 150 mg Documented By: JORGE Clopidogrel Bisulfate (Clopidogrel Bisulfate 75 Mg Tab) 75 mg PO QAM SHERIE Stop: 10/31/24 08:59 Last Admin: 10/04/24 08:52 Dose: 75 mg Documented By: Admin: 10/03/24 08:28 Dose: 75 mg Documented By: Admin: 10/02/24 08:49 Dose: 75 mg Documented By: Admin: 10/01/24 08:50 Dose: 75 mg Documented By: JORGE Famotidine (Famotidine 20 Mg Tab) 20 mg PO QAM SHERIE Stop: 11/07/24 11:59 Last Admin: 10/09/24 09:45 Dose: 20 mg Documented By: Admin: 10/08/24 12:10 Dose: 20 mg Documented By: SWAPNA Fluoxetine HCl (Fluoxetine Hcl 20 Mg Cap) 40 mg PO DAILY SHERIE Stop: 10/31/24 08:59 Last Admin: 10/09/24 09:42 Dose: 40 mg Documented By: Admin: 10/08/24 09:32 Dose: 40 mg Documented By: Admin: 10/07/24 08:43 Dose: 40 mg Documented By: Admin: 10/06/24 09:14 Dose: 40 mg Documented By: Admin: 10/05/24 08:43 Dose: 40 mg Documented By: Admin: 10/04/24 08:52 Dose: 40 mg Documented By: Admin: 10/03/24 08:29 Dose: 40 mg Documented By: Admin: 10/02/24 08:48 Dose: 40 mg Documented By: Admin: 10/01/24 08:50 Dose: 40 mg Documented By: JORGE Folic Acid (Folic Acid 1 Mg Tab) 1 mg PO QAM SHERIE Stop: 11/05/24 08:59 Last Admin: 10/09/24 09:42 Dose: 1 mg Documented By: Admin: 10/08/24 09:33 Dose: 1 mg Documented By: Admin: 10/07/24 08:43 Dose: 1 mg Documented By: Admin: 10/06/24 09:14 Dose: 1 mg Documented By: WERNER Heparin Sodium (Porcine) (Heparin Sod 5,000 Unit/0.5 Ml Vial) 5,000 units SQ Q12 SHERIE Stop: 10/30/24 20:59 Last Admin: 10/09/24 09:45 Dose: 5,000 units Documented By: Admin: 10/08/24 20:51 Dose: 5,000 units Documented By: [id number] Admin: 10/08/24 09:33 Dose: 5,000 units Documented By: Admin: 10/07/24 20:46 Dose: 5,000 units Documented By: [id number] Admin: 10/02/24 10:06 Dose: Not Given Documented By: Admin: 10/01/24 20:17 Dose: 5,000 units Documented By: Admin: 10/01/24 08:55 Dose: 5,000 units Documented By: Admin: 09/30/24 21:00 Dose: 5,000 units Documented By: PETRONA Pantoprazole Sodium (Pantoprazole 40 Mg Tab) 40 mg PO BID SHERIE Stop: 10/30/24 20:59 Last Admin: 10/09/24 09:42 Dose: 40 mg Documented By: Admin: 10/08/24 20:51 Dose: 40 mg Documented By: [id number] Admin: 10/08/24 09:33 Dose: 40 mg Documented By: Admin: 10/07/24 20:47 Dose: 40 mg Documented By: [id number] Admin: 10/07/24 08:43 Dose: 40 mg Documented By: Admin: 10/06/24 20:09 Dose: 40 mg Documented By: Admin: 10/06/24 08:38 Dose: 40 mg Documented By: Admin: 10/05/24 21:47 Dose: 40 mg Documented By: Admin: 10/05/24 08:43 Dose: 40 mg Documented By: Admin: 10/04/24 21:29 Dose: 40 mg Documented By: Admin: 10/04/24 08:53 Dose: 40 mg Documented By: Admin: 10/03/24 20:25 Dose: 40 mg Documented By: Admin: 10/03/24 08:28 Dose: 40 mg Documented By: Admin: 10/02/24 20:17 Dose: 40 mg Documented By: Admin: 10/02/24 08:49 Dose: 40 mg Documented By: Admin: 10/01/24 20:18 Dose: 40 mg Documented By: Admin: 10/01/24 08:50 Dose: 40 mg Documented By: Admin: 09/30/24 21:00 Dose: 40 mg Documented By: PETRONA Thiamine HCl (Thiamine Hcl 100 Mg Tab) 100 mg PO QA SHERIE Stop: 11/05/24 08:59 Last Admin: 10/09/24 09:42 Dose: 100 mg Documented By: Admin: 10/08/24 09:33 Dose: 100 mg Documented By: Admin: 10/07/24 08:44 Dose: 100 mg Documented By: Admin: 10/06/24 09:14 Dose: 100 mg Documented By: WERNER Trazodone HCl (Trazodone Hcl 50 Mg Tab) [address] [facility] Stop: 10/30/24 20:59 Last Admin: 10/08/24 20:51 Dose: 50 mg Documented By: [id number] Admin: 10/07/24 20:47 Dose: 50 mg Documented By: [id number] Admin: 10/06/24 20:09 Dose: 50 mg Documented By: Admin: 10/05/24 21:47 Dose: 50 mg Documented By: Admin: 10/04/24 21:29 Dose: 50 mg Documented By: Admin: 10/03/24 20:25 Dose: 50 mg Documented By: Admin: 10/02/24 20:16 Dose: 50 mg Documented By: Admin: 10/01/24 20:17 Dose: 50 mg Documented By: Admin: 09/30/24 21:00 Dose: 50 mg Documented By: PETRONA Vitamin B Complex (Vitamin B Complex Tab) [facility] [place] Stop: 11/05/24 08:59 Last Admin: 10/09/24 09:42 Dose: 1 tab Documented By: Admin: 10/08/24 09:33 Dose: 1 tab Documented By: Admin: 10/07/24 08:43 Dose: 1 tab Documented By: Admin: 10/06/24 09:14 Dose: 1 tab Documented By: WERNER
[2024-10-10] MEDS: oxyCODONE HCL IR 5 MG TAB (IMMEDIATE RELEASE) PO PRN (02:56)
[2024-10-10] MEDS: LABETALOL HCL IV 5 MG/ML 20ML IV STA (04:22)
--- NOTE | 2024-10-10 08:16 | XRay Report ---
XR lumbar spine 2-3V CLINICAL HISTORY: preop COMPARISON STUDY: 10/02/[address] of 03/01/2022 FINDINGS: Aortobiiliac endograft is present. Bilateral hip prostheses are partially visualized. There is stable laminectomy from L1 through L5. Stable posterior metallic fusion from L1 through L3. Stabl e interbody devices at L4-5 and L5-S1. Stable minimal retrolisthesis of L3 on 4. Otherwise normal ali gnment. Stable diffuse degenerative changes. No fracture seen. IMPRESSION: Stable exam. ACT 112: Negative or not required by law. Electronically signed by: Shaquille Jimenez M.D. 10/10/2024 8:14 AM
[2024-10-10] MEDS: lisinopril 10 MG TAB PO SCH (08:42)
--- NOTE | 2024-10-10 10:59 | Hospitalist Progress Note ---
Date of Service October 10, 2024 Assessment & Plan (1) Right sided weakness: (2) Confusion: (3) Dizziness: (4) Depression: (5) HTN (hypertension): (6) Dyslipidemia: (7) Diabetes mellitus, type II: (8) COPD (chronic obstructive pulmonary disease): (9) Migraine: Plan 74 year old male with PMH significant for DMII, HTN, HLD, COPD, migraine, depression, and history of L pontine stroke who presented to the ED today with confusion, right sided weakness, and slurred speech who is being admitted for a stroke workup. Right sided weakness History of L pontine CVA -Patient with weakness in RUE and RLE -Unknown if this is related to previous L pontine stroke or new weakness -MRI w/wo contrast negative for acute stroke Plan: -PT/OTconsults -Consult neurology - appreciate recs -Continue plavix and atorvastatin -CTA head and neck- neuro recommending outpt neurovascular followup -continue aspirin 81mg daily for 3 weeks -Neurology f/u -MRI lumbar spine ordered- noting severe degenerative disease and mild compression of cauda equina, awaiting plavix washout of 5 days, earliest for procedure would be 10/08 -awaiting procedure tentatively on 10/11/2024 -NPO after midnight, PT/INT, ABO and blood type ordered Mild Dementia Metabolic Encephalopathy 2/2 Polypharmacy, resolving -Could be due to stroke, post-fall concussion, declining neurocognitive function, polypharmacy -Patient seen by Neurology Dr. Holm outpatient with workup ongoing (EEG negative for epilepsy per records) and follow up appointment scheduled for 01/23/2025 - notes family hx of parkinsons for the pt UA unremarkable TSH normal vitamin B12 normal lyme screen negative -likely mild to moderate dementia Plan: -Delirium precautions. Frequent reorientation, avoid sedating medications as able -f/u outpatient, continue folic acid, thiamine, B12 supplementation -continue famotidine daily for upset stomach -continue to hold tramadol in setting of dementia and tramadol having significant serotinergic effects -prn oxycodone q8hr prn, limit opioid exposure in setting of dementia Dizziness -Could be due to stroke, post-fall concussion, polypharmacy -Pt currently being worked up for dementia, fam hx of parkinsons, question of associated autonomic dysfunction Plan: -Holding home propranolol and losartan -continue fluoxetine at 40 mg to decrease polypharmacy, help with improving encephalopathy Depression/anxiety -Continue bupropion, buspirone, fluoxetine, trazodone, lorazepam Hypertension -Hold losartan due to stroke workup -Home propranolol also on hold Dyslipidemia -Lipid panel: Chol 120 LDL 53 HDL 42 Tri 124 on 09/06/2024 per records -Continue atorvastatin DMII -Diet controlled COPD -Controlled -Albuterol PRN GERD -Continue pantoprazole and tums PRN Migraine -Controlled - rizatriptan PRN -Hold propranolol due to stroke workup and bradycardia I spent a total of 45 minutes in direct patient care, including [id number] time with the patient and/or family, reviewing medical records, ordering and reviewing diagnostic tests, and coordinating care with other healthcare providers. This time includes: history taking, physical examination, medical decision making, counseling, ECG interpretation, imaging interpretation, lab interpretation, orders, and education, excluding time spent in the performance of separately billed services. Admission and Anticipated Discharge Date Admission Date: September 30, 2024 Subjective Patient seen and examined at bedside. Patient doing well today, sitting comfortably on side of bed. Ready for OR tomorrow. Review of Systems Review of Systems: CONSTITUTIONAL: Patient denies fevers, chills, sweats and weight changes. EYES: Patient denies any visual symptoms. EARS, NOSE, AND THROAT: No difficulties with hearing. No symptoms of rhinitis or sore throat. CARDIOVASCULAR: Patient denies chest pains, palpitations, orthopnea and paroxysmal nocturnal dyspnea. RESPIRATORY: No dyspnea on exertion, no wheezing or cough. GI: upset stomach : No urinary hesitancy or dribbling. No nocturia or urinary frequency. No abnormal urethral discharge. MUSCULOSKELETAL: low back pain NEUROLOGIC: No chronic headaches, no seizures. Patient denies numbness, tingling or weakness. PSYCHIATRIC: Patient denies problems with mood disturbance. No problems with anxiety. ENDOCRINE: No excessive urination or excessive thirst. DERMATOLOGIC: Patient denies any rashes or skin changes. Physical Exam Physical Exam: Gen: A&O 3 NAD HEENT: NCAT, EOMI, not icteric. External ears normal. No rhinorrhea. Moist mucous membranes. Neck: Supple, full range of motion, no observable masses, No meningeal sign. Lungs: No Respiratory distress. CV: RRR, no edema. Abdomen: Soft, nondistended, No rebound tenderness. MSK: No joint swelling, no redness. Tenderness to palpation in right lower back Skin: No rashes, petechiae, lesions. Normal color per patient. Neuro: Normal Gait, Grossly intact. Psych: Appropriate for situation. Results & Data Results & Data Vital Signs (Past 12 Hours) Vital Signs Temp Pulse Pulse Pulse Resp BP BP 10/10/24 07:38 62 10/10/24 07:17 36.4 C L 65 17 156/79 H 10/10/24 05:19 65 162/85 H 10/10/24 04:22 77 181/84 H 10/10/24 03:56 181/84 H 10/10/24 02:46 36.3 C L 77 18 199/92 H Pulse Ox O2 Del Method 10/10/24 07:38 10/10/24 07:17 92 Room Air 10/10/24 05:19 10/10/24 04:22 10/10/24 03:56 10/10/24 02:46 97 Room Air Laboratory Results -personally reviewed, Medications Administered Acetaminophen (Acetaminophen 325 Mg Tab) 650 mg PO Q6 SHERIE Stop: 10/31/24 00:00 Last Admin: 10/10/24 05:22 Dose: 650 mg Documented By: Admin: 10/10/24 00:31 Dose: 650 mg Documented By: Admin: 10/09/24 17:46 Dose: 650 mg Documented By: Admin: 10/09/24 12:30 Dose: 650 mg Documented By: Admin: 10/09/24 05:32 Dose: 650 mg Documented By: [id number] Admin: 10/09/24 01:46 Dose: Not Given Documented By: [id number] Admin: 10/08/24 17:56 Dose: 650 mg Documented By: Admin: 10/08/24 11:40 Dose: 650 mg Documented By: Admin: 10/08/24 06:19 Dose: 650 mg Documented By: [id number] Admin: 10/08/24 02:21 Dose: Not Given Documented By: [id number] Admin: 10/07/24 18:23 Dose: 650 mg Documented By: Admin: 10/07/24 11:49 Dose: 650 mg Documented By: Admin: 10/07/24 06:00 Dose: 650 mg Documented By: Admin: 10/07/24 03:25 Dose: Not Given Documented By: Admin: 10/06/24 17:55 Dose: 650 mg Documented By: Admin: 10/06/24 12:49 Dose: 650 mg Documented By: Admin: 10/06/24 08:38 Dose: 650 mg Documented By: Admin: 10/06/24 02:25 Dose: 650 mg Documented By: Admin: 10/05/24 18:03 Dose: 650 mg Documented By: Admin: 10/05/24 11:36 Dose: 650 mg Documented By: Admin: 10/05/24 06:04 Dose: 650 mg Documented By: Admin: 10/04/24 23:57 Dose: 650 mg Documented By: Admin: 10/04/24 17:55 Dose: 650 mg Documented By: Admin: 10/04/24 11:48 Dose: 650 mg Documented By: Admin: 10/04/24 05:56 Dose: 650 mg Documented By: Admin: 10/04/24 01:06 Dose: 650 mg Documented By: Admin: 10/03/24 18:33 Dose: 650 mg Documented By: Admin: 10/03/24 11:07 Dose: 650 mg Documented By: Admin: 10/03/24 05:06 Dose: 650 mg Documented By: Admin: 10/03/24 00:21 Dose: 650 mg Documented By: Admin: 10/02/24 18:37 Dose: Not Given Documented By: Admin: 10/02/24 12:25 Dose: 650 mg Documented By: Admin: 10/02/24 05:44 Dose: 650 mg Documented By: Admin: 10/01/24 23:38 Dose: 650 mg Documented By: Admin: 10/01/24 18:16 Dose: Not Given Documented By: Admin: 10/01/24 15:55 Dose: 650 mg Documented By: Admin: 10/01/24 05:43 Dose: 650 mg Documented By: Admin: 10/01/24 00:14 Dose: 650 mg Documented By: PETRONA Aspirin (Aspirin 81 Mg Ectab) 81 mg PO [facility] Stop: 10/31/24 14:44 Last Admin: 10/02/24 08:47 Dose: 81 mg Documented By: Admin: 10/01/24 15:54 Dose: 81 mg Documented By: JORGE Atorvastatin Calcium (Atorvastatin 40 Mg Tab) 40 mg PO DAILY SHERIE Stop: 10/31/24 08:59 Last Admin: 10/10/24 08:42 Dose: 40 mg Documented By: Admin: 10/09/24 09:42 Dose: 40 mg Documented By: Admin: 10/08/24 09:32 Dose: 40 mg Documented By: Admin: 10/07/24 08:44 Dose: 40 mg Documented By: Admin: 10/06/24 09:14 Dose: 40 mg Documented By: Admin: 10/05/24 08:43 Dose: 40 mg Documented By: Admin: 10/04/24 08:52 Dose: 40 mg Documented By: Admin: 10/03/24 08:28 Dose: 40 mg Documented By: Admin: 10/02/24 08:49 Dose: 40 mg Documented By: Admin: 10/01/24 08:50 Dose: 40 mg Documented By: JORGE Bupropion HCl (Bupropion Xl 150 Mg Tabcr) 150 mg PO DAILY SHERIE Stop: 10/31/24 08:59 Last Admin: 10/10/24 08:42 Dose: 150 mg Documented By: Admin: 10/09/24 09:42 Dose: 150 mg Documented By: Admin: 10/08/24 09:32 Dose: 150 mg Documented By: Admin: 10/07/24 08:43 Dose: 150 mg Documented By: Admin: 10/06/24 09:14 Dose: 150 mg Documented By: Admin: 10/05/24 08:43 Dose: 150 mg Documented By: Admin: 10/04/24 08:52 Dose: 150 mg Documented By: Admin: 10/03/24 08:28 Dose: 150 mg Documented By: Admin: 10/02/24 08:47 Dose: 150 mg Documented By: Admin: 10/01/24 08:50 Dose: 150 mg Documented By: JORGE Clopidogrel Bisulfate (Clopidogrel Bisulfate 75 Mg Tab) 75 mg PO QA SHERIE Stop: 10/31/24 08:59 Last Admin: 10/04/24 08:52 Dose: 75 mg Documented By: Admin: 10/03/24 08:28 Dose: 75 mg Documented By: Admin: 10/02/24 08:49 Dose: 75 mg Documented By: Admin: 10/01/24 08:50 Dose: 75 mg Documented By: JORGE Famotidine (Famotidine 20 Mg Tab) 20 mg PO QAM [facility] Stop: 11/07/24 11:59 Last Admin: 10/10/24 08:41 Dose: 20 mg Documented By: Admin: 10/09/24 09:45 Dose: 20 mg Documented By: Admin: 10/08/24 12:10 Dose: 20 mg Documented By: SWAPNA Fluoxetine HCl (Fluoxetine Hcl 20 Mg Cap) 40 mg PO DAILY [facility] Stop: 10/31/24 08:59 Last Admin: 10/10/24 08:42 Dose: 40 mg Documented By: Admin: 10/09/24 09:42 Dose: 40 mg Documented By: Admin: 10/08/24 09:32 Dose: 40 mg Documented By: Admin: 10/07/24 08:43 Dose: 40 mg Documented By: Admin: 10/06/24 09:14 Dose: 40 mg Documented By: Admin: 10/05/24 08:43 Dose: 40 mg Documented By: Admin: 10/04/24 08:52 Dose: 40 mg Documented By: Admin: 10/03/24 08:29 Dose: 40 mg Documented By: Admin: 10/02/24 08:48 Dose: 40 mg Documented By: Admin: 10/01/24 08:50 Dose: 40 mg Documented By: JORGE Folic Acid (Folic Acid 1 Mg Tab) 1 mg PO QAM SHERIE Stop: 11/05/24 08:59 Last Admin: 10/10/24 08:42 Dose: 1 mg Documented By: Admin: 10/09/24 09:42 Dose: 1 mg Documented By: Admin: 10/08/24 09:33 Dose: 1 mg Documented By: Admin: 10/07/24 08:43 Dose: 1 mg Documented By: Admin: 10/06/24 09:14 Dose: 1 mg Documented By: WERNER Lisinopril (Lisinopril 10 Mg Tab) 10 mg PO QAM SHERIE Stop: 11/09/24 08:59 Last Admin: 10/10/24 08:42 Dose: 10 mg Documented By: LEYDI Oxycodone HCl (Oxycodone Hcl Ir 5 Mg Tab (Immediate Release)) 5 mg PO Q8 PRN PRN Reason: Breakthrough Pain Stop: 10/23/24 16:49 Last Admin: 10/10/24 02:56 Dose: 5 mg Documented By: GUANAKO Pantoprazole Sodium (Pantoprazole 40 Mg Tab) 40 mg PO BID SHERIE Stop: 10/30/24 20:59 Last Admin: 10/10/24 08:42 Dose: 40 mg Documented By: Admin: 10/09/24 20:00 Dose: 40 mg Documented By: Admin: 10/09/24 09:42 Dose: 40 mg Documented By: Admin: 10/08/24 20:51 Dose: 40 mg Documented By: [id number] Admin: 10/08/24 09:33 Dose: 40 mg Documented By: Admin: 10/07/24 20:47 Dose: 40 mg Documented By: [id number] Admin: 10/07/24 08:43 Dose: 40 mg Documented By: Admin: 10/06/24 20:09 Dose: 40 mg Documented By: Admin: 10/06/24 08:38 Dose: 40 mg Documented By: Admin: 10/05/24 21:47 Dose: 40 mg Documented By: Admin: 10/05/24 08:43 Dose: 40 mg Documented By: Admin: 10/04/24 21:29 Dose: 40 mg Documented By: Admin: 10/04/24 08:53 Dose: 40 mg Documented By: Admin: 10/03/24 20:25 Dose: 40 mg Documented By: Admin: 10/03/24 08:28 Dose: 40 mg Documented By: Admin: 10/02/24 20:17 Dose: 40 mg Documented By: Admin: 10/02/24 08:49 Dose: 40 mg Documented By: Admin: 10/01/24 20:18 Dose: 40 mg Documented By: Admin: 10/01/24 08:50 Dose: 40 mg Documented By: Admin: 09/30/24 21:00 Dose: 40 mg Documented By: PETRONA Thiamine HCl (Thiamine Hcl 100 Mg Tab) 100 mg PO QAM SHERIE Stop: 11/05/24 08:59 Last Admin: 10/10/24 08:42 Dose: 100 mg Documented By: Admin: 10/09/24 09:42 Dose: 100 mg Documented By: Admin: 10/08/24 09:33 Dose: 100 mg Documented By: Admin: 10/07/24 08:44 Dose: 100 mg Documented By: Admin: 10/06/24 09:14 Dose: 100 mg Documented By: WERNER Trazodone HCl (Trazodone Hcl 50 Mg Tab) 50 mg PO SHERIE Stop: 10/30/24 20:59 Last Admin: 10/09/24 20:00 Dose: 50 mg Documented By: Admin: 10/08/24 20:51 Dose: 50 mg Documented By: [id number] Admin: 10/07/24 20:47 Dose: 50 mg Documented By: [id number] Admin: 10/06/24 20:09 Dose: 50 mg Documented By: Admin: 10/05/24 21:47 Dose: 50 mg Documented By: Admin: 10/04/24 21:29 Dose: 50 mg Documented By: Admin: 10/03/24 20:25 Dose: 50 mg Documented By: Admin: 10/02/24 20:16 Dose: 50 mg Documented By: Admin: 10/01/24 20:17 Dose: 50 mg Documented By: Admin: 09/30/24 21:00 Dose: 50 mg Documented By: PETRONA Vitamin B Complex (Vitamin B Complex Tab) 1 tab PO QA SHERIE Stop: 11/05/24 08:59 Last Admin: 10/10/24 08:42 Dose: 1 tab Documented By: Admin: 10/09/24 09:42 Dose: 1 tab Documented By: Admin: 10/08/24 09:33 Dose: 1 tab Documented By: Admin: 10/07/24 08:43 Dose: 1 tab Documented By: Admin: 10/06/24 09:14 Dose: 1 tab Documented By: WERNER
[2024-10-11 06:53] LABS: Hematocrit (blood only) 49.8 % (42.0-52.0); Hemoglobin 16.5 g/dl (14.0-18.0); Mean Corpuscular Hemoglobin 30.2 pg (25.0-34.0); Mean Corpuscular Hgb Conc 33.1 g/dL (32.0-36.0); Mean Platelet Volume 10.1 fL (9.4-12.4); Platelet Count 210 K/uL (130-400); RDW Coefficient of Variation 13.5 % (11.5-14.5); RDW Standard Deviation 45.6 fL (36.4-46.3); Red Blood Count 5.47 M/uL (4.70-6.10); White Blood Count 9.63 K/ul (4.8-10.8)
[2024-10-11] MEDS ORDERED: ROCURONIUM BROMIDE 10 MG/ML 5 ML VIAL IV ONE (07:10)
[2024-10-11] MEDS ORDERED: LIDOCAINE 2% 2 ML VIAL/AMP(20MG/ML) INFIL ONE (07:10)
[2024-10-11] MEDS ORDERED: DEXAMETHASONE SOD INJ 4 MG/ML VIAL ONE (07:10)
[2024-10-11] MEDS ORDERED: GLYCOPYRROLATE 0.2 MG/ML VIAL ONE (07:10)
[2024-10-11] MEDS ORDERED: ONDANSETRON INJ 2 MG/ML 2 ML VIAL ONE (07:10)
[2024-10-11] MEDS ORDERED: PROPOFOL IV EMULSION 10 MG/ML 20 ML VIAL IV ONE (07:10)
[2024-10-11] MEDS ORDERED: fentaNYL citrate PF 100 MCG/2 ML VIAL ONE ×3 (07:11→09:57)
--- NOTE | 2024-10-11 07:13 | Anesthesiology Consultation ---
Date of Service October 11, 2024 Assessment & Plan Chart Review Chart Review: Acceptable Risk for Surgery Consults Requested none ASA ASA3 Proposed Anesthesia Anesthesia Type: General Risk / Benefits Reviewed With: PT / POA / Parent / Guardian, Accepts Plan and Informed Consent Obtained History Surgery Operation Date: 10/11/24 07:45 Proposed Procedures p T10-L2 Decompression and Fusion, Spinal Cord Monitoring - Robb Ac, Height/Weight Height: 5 ft 8 in Weight: 70.5 kg Allergies Allergy/AdvReac Type Severity Reaction Status Date / Time latex Allergy Intermediate Rash Verified 09/30/24 15:44 tetracycline Allergy Intermediate RASH Verified 09/30/24 15:44 Medications Home Medications Medication Instructions Recorded Confirmed Last Taken albuterol sulfate 90 mcg/actuation 2 puff inhalation Q4 PRN Wheezing 09/08/21 09/30/24 Unknown aerosol inhaler atorvastatin 40 mg tablet 40 mg PO DAILY 09/08/21 09/30/24 09/30/24 bupropion HCl 150 mg 24 hr tablet, 150 mg PO DAILY 09/08/21 09/30/24 09/30/24 extended release calcium carbonate 500 mg PO DIRECTED PRN 09/08/21 09/30/24 Unknown HEARTBURN/INDIGESTION clopidogrel 75 mg tablet 75 mg PO QAM 09/08/21 09/30/24 09/30/24 fluoxetine 20 mg capsule 20 mg PO DAILY 09/08/21 09/30/24 09/30/24 fluoxetine 40 mg capsule 40 mg PO DAILY 09/08/21 09/30/24 09/30/24 lorazepam 1 mg tablet 1 mg PO HS PRN Anxiety/insomnia 09/08/21 09/30/24 09/29/24 [id number] acid 0.4 1 tab PO DAILY 09/08/21 09/30/24 09/30/24 mg-lycopene 300 mcg-lutein 250 mcg tablet (Centrum Silver) rizatriptan 10 mg tablet 10 mg PO UD PRN Migraine Headache 09/08/21 09/30/24 Unknown tramadol 50 mg tablet 50 mg PO Q6 PRN Pain, Severe 09/08/21 09/30/24 Unknown pantoprazole 40 mg tablet,delayed 40 mg PO BID #60 tabs 09/20/21 09/30/24 09/30/24 08:00 release acetaminophen 650 mg 1,300 mg PO BID 09/30/24 09/30/24 09/30/24 08:00 tablet,extended release (Tylenol 8 Hour) buspirone 5 mg tablet 5 mg PO QDL 09/30/24 09/30/24 09/30/24 diclofenac sodium 1 % topical gel 2 g topical BID 09/30/24 09/30/24 09/30/24 08:00 food supplemt, lactose-reduced 1 ea PO BID 09/30/24 09/30/24 09/30/24 08:00 losartan 25 mg tablet 25 mg PO DAILY 09/30/24 09/30/24 09/30/24 08:00 olanzapine 2.5 mg tablet 2.5 mg PO DAILY 09/30/24 09/30/24 09/30/24 propranolol 80 mg capsule,24 80 mg PO DAILY 09/30/24 09/30/24 09/30/24 hr,extended release trazodone 50 mg tablet 50 mg PO HS 09/30/24 09/30/24 09/29/24 Active Medications Generic Name Dose Route Start Last Admin Trade Name Freq PRN Reason Stop Dose Admin Acetaminophen 650 mg 10/01/24 00:00 10/11/24 06:10 Acetaminophen 325 Mg Tab PO 10/31/24 00:00 Not Given Q6 SHERIE Aspirin 81 mg 10/01/24 14:45 10/02/24 08:47 Aspirin 81 Mg Ectab PO 10/31/24 14:44 81 mg QAM SHERIE Administration Atorvastatin Calcium 40 mg 10/01/24 09:00 10/10/24 08:42 Atorvastatin 40 Mg Tab PO 10/31/24 08:59 40 mg DAILY SHERIE Administration Bupropion HCl 150 mg 10/01/24 09:00 10/10/24 08:42 Bupropion Xl 150 Mg Tabcr PO 10/31/24 08:59 150 mg DAILY SHERIE Administration Clopidogrel Bisulfate 75 mg 10/01/24 09:00 10/04/24 08:52 Clopidogrel Bisulfate 75 Mg Tab PO 10/31/24 08:59 75 mg QAM SHERIE Administration Famotidine 20 mg 10/08/24 12:00 10/10/24 08:41 Famotidine 20 Mg Tab PO 11/07/24 11:59 20 mg QAM SHERIE Administration Fluoxetine HCl 40 mg 10/01/24 09:00 10/10/24 08:42 Fluoxetine Hcl 20 Mg Cap PO 10/31/24 08:59 40 mg DAILY SHERIE Administration Folic Acid 1 mg 10/06/24 09:00 10/10/24 08:42 Folic Acid 1 Mg Tab PO 11/05/24 08:59 1 mg QAM SHERIE Administration Lisinopril 10 mg 10/10/24 09:00 10/10/24 08:42 Lisinopril 10 Mg Tab PO 11/09/24 08:59 10 mg QAM SHERIE Administration Oxycodone HCl 5 mg 10/09/24 16:50 10/10/24 02:56 Oxycodone Hcl Ir 5 Mg Tab (Immediate Release) PO 10/23/24 16:49 5 mg Q8 PRN Administration Breakthrough Pain Pantoprazole Sodium 40 mg 09/30/24 21:00 10/10/24 20:00 Pantoprazole 40 Mg Tab PO 10/30/24 20:59 40 mg BID SHERIE Administration Thiamine HCl 100 mg 10/06/24 09:00 10/10/24 08:42 Thiamine Hcl 100 Mg Tab PO 11/05/24 08:59 100 mg QAM SHERIE Administration Trazodone HCl 50 mg 09/30/24 21:00 10/10/24 20:00 Trazodone Hcl 50 Mg Tab PO 10/30/24 20:59 50 mg HS SHERIE Administration Vitamin B Complex 1 tab 10/06/24 09:00 10/10/24 08:42 Vitamin B Complex Tab PO 11/05/24 08:59 1 tab QAM SHERIE Administration NPO Date Last Intake of Fluids: 10/10/24 Time Last Intake of Fluids: 20:00 Date Last Intake of Solids: 10/10/24 Time Last Intake of Solids: 18:00 Past Medical History Medical History AAA (abdominal aortic aneurysm) without rupture Obstructive sleep apnea on CPAP Left pontine CVA Hip pain Pancreatitis Encounter for pre-operative examination Abdominal pain Duodenal ulcer Acute blood loss anemia Acute upper GI bleed Gastric outlet obstruction Abdominal pain, acute, epigastric Nausea & vomiting Syncope and collapse H/O asbestos exposure H/O restrictive lung disease History of CVA (cerebrovascular accident) "05/2015", no residual deficit H/O migraine with aura History of tobacco abuse Slurred speech DJD (degenerative joint disease) DJD (degenerative joint disease), multiple sites Exercise / Class Metabolic Activity IV < 2 Limit ADL/Bedbound Past Surgical History Surgical History History of AAA (abdominal aortic aneurysm) repair History of right hip replacement "01/2015" History of lumbar laminectomy "2000,2001,2004,2006" History of colonoscopy Past Anesthesia History No Hx of Anesthesia Complications and No Family Hx of Anesthesia Complications History of PONV No Hx of PONV and No Hx of Motion Sickness Social History Smoking Status: Former smoker tobacco type: cigarettes Smoking End Date: years ago Hx Alcohol Use: No alcohol intake frequency: 0-2 drinks per day Hx Substance Use: No substance use type: does not use Physical Exam Vital Signs Last Vital Signs Temp 36.8 C 10/11/24 07:00 Pulse 62 10/11/24 07:05 Resp 20 10/11/24 07:00 BP 146/78 H 10/11/24 07:00 Pulse Ox 95 10/11/24 07:00 O2 Del Method Room Air 10/11/24 07:00 Constitutional no acute distress ENMT Mouth: + dental caries, + poor dentition, + chipped teeth and + loose teeth; no TMJ abnormality Thyromental Distance: > or= 3.5 Finger Breadths Mallampati Class: I Neck normal visual inspection Respiratory normal respiratory effort and + respiratory distress Auscultation: lungs clear to auscultation bilaterally and + breath sounds absent Cardiovascular Rate/Rhythm: regular rate and regular rhythm Musculoskeletal Right sided weakness Psychiatric Orientation: alert and oriented x 3 Testing Laboratory Results 10/11/24 06:35 PT 10.9 Seconds (9.0-12.0) 09/30/24 14:31 INR 1.0 (0.9-1.1) 09/30/24 14:31 APTT 28 Seconds (21-31) 09/30/24 14:31 Urine Color Yellow 09/30/24 17:45 Urine Appearance Clear (Clear) 09/30/24 17:45 Urine pH 7.0 (4.5-7.5) 09/30/24 17:45 Ur Specific Bosler 1.019 (1.000-1.030) 09/30/24 17:45 Urine Protein Trace (Negative) H 09/30/24 17:45 Urine Glucose (UA) Negative (Negative) 09/30/24 17:45 Urine Ketones Trace (Negative) H 09/30/24 17:45 Urine Nitrite Negative (Negative) 09/30/24 17:45 Ur Leukocyte Esterase Negative (Negative) 09/30/24 17:45 Urine WBC (Auto) 0-5 /hpf (0-5) 09/30/24 17:45 Urine RBC (Auto) 0-2 /hpf (0-2) 09/30/24 17:45 U Hyaline Cast (Auto) 0-2 /lpf (0-2) 09/30/24 17:45 U Epithel Cells (Auto) 0-2 /hpf (0-2) 09/30/24 17:45 Urine Bacteria (Auto) None Seen (None Seen) 09/30/24 17:45 Blood Type A Positive 10/10/24 06:54 Antibody Screen NEGATIVE 10/10/24 06:54 Electrocardiogram Date: 10/03/24 Findings: + SB @ Chest X-Ray Findings: + NAD Echocardiogram Date: 10/01/24 EF: 60 LV Function: normal Valvular Disease: + no significant valvular disease
[2024-10-11 07:14] LABS: BUN Creatinine Ratio 17.7 (10-20); Calcium 9.5 mg/dl (8.6-10.3); Creatinine Clr Calc Pharmacy 80.6 ml/min; Potassium 4.1 mmol/L (3.5-5.1)
[2024-10-11] MEDS ORDERED: ONDANSETRON INJ 2 MG/ML 2 ML VIAL IV PRN ×2 (07:15→11:28)
[2024-10-11] MEDS ORDERED: ePHEDrine sulfate 50 MG/ML AMP IV PRN (07:15)
[2024-10-11] MEDS ORDERED: ATROPINE SULFATE 0.1 MG/ML 10ML SYR IV PRN (07:15)
[2024-10-11] MEDS: LACTATED RINGER'S 1,000 ML IV SCH (07:16)
[2024-10-11] MEDS ORDERED: SUGAMMADEX SODIUM 200 MG/2 ML VIAL IV ONE (07:16)
[2024-10-11 07:24] LABS: Prothrombin Time 11.1 Seconds (9.0-12.0)
--- NOTE | 2024-10-11 07:40 | History & Physical Bridge Note ---
Date of Service October 11, 2024 History & Physical Bridge Note I have examined the patient, reviewed the History & Physical and in the interval since the performance of the History & Physical I have noted the following changes of clinical significance: no changes noted T10-L2 decompression fusion possible hardware removal L2-L4
[2024-10-11] MEDS: ceFAZolin 2000MG 2,000 MG/15 ML SYR IV ONE ×2 (07:51→11:42)
[2024-10-11] MEDS: BUPIVACAINE/EPINEPHRINE 0.25% 1:200,000 30 ML VIAL ONE (08:39)
[2024-10-11] MEDS: ceFAZolin 2,000 MG/15 ML IV PUSH IV ONE (08:39)
[2024-10-11] MEDS ORDERED: PHENYLEPHRINE 100MCG/ML 5ML SYR ONE (09:21)
[2024-10-11] MEDS: FLOSEAL HEMOSTATIC MATRIX 10ML TOP ONE (09:30)
[2024-10-11] MEDS: ceFAZolin 330 MG/ML 1 GM VIAL ONE (10:04)
--- NOTE | 2024-10-11 10:08 | Operative Report ---
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 #2 exploration of fusion L2-L4. #3 revision decompression with bilateral medial facetectomies T10-T11 T11-T12. #4 posterior spinal fusion T10-L2. #5 placed posterior segmental instrumentation T10-L4 using medic Creo. #6 placement infuse collagen sponge, with Koros in the posterior gutters T10-L2. Surgeon Robb Ac, Canopy Stringer Kaley Fortune Estimated Blood Loss 20 Findings Consistent with Post-Op Diagnosis Specimens None Indications This is a 74-year-old male who presents with above-mentioned diagnosis after failing course of nonoperative care and having continued decline in function is here for the above-mentioned procedure. Description of Procedure Patient was met with identified informed consent obtained. Patient was then taken to the operative suite underwent intubation placed in a prone position on the Nadeem table with a chest pad and hip bolsters. All bony prominences well- padded eyes inspected to ensure no external precipice upon them. This point the thoracolumbar spine was prepped and draped in a sterile fashion. Sharp dissection with the assistance of Bovie cautery performed down to and exposing the remaining lamina transverse processes of [id number] and instrumentation at L2-L3-L4 bilaterally. And then proceeded to move the hardware bilaterally explored the fusion mass noting to be mature intact. Then performed a revision decompression bilateral medial facetectomies T10-T11 T8 11 T12. An incidental durotomy was noted and a DuraGen patch and DuraSeal was placed over the dura. The dura was markedly thin at the area of previous decompression. Pedicle screws were placed in [id number] L3-L4 bilaterally with assistance of fluoroscopy and the properly sized rachael contoured and locked into position. The transverse processes of [id number] L1 and L2 burred to subcortical bony bone. Infuse collagen sponge, with Koros bone graft was placed in the posterior gutters. 15 round HCARLOTTE drain inserted. Incision was then closed with 1 Vicryl fascia 2-0 Vicryl subcutaneously and 4 Monocryl for fascial closure. Steri- Strips sterile dressing placed. Patient waken taken to PACU in stable condition. Please note spinal cord monitoring was utilized at the procedure no changes noted. Kaley Fortune was present at the entire surgery while the patient positioning complex portion of the surgery and final skin closure. I attest to the content of the Intraoperative Record and any orders documented therein. Any exceptions are noted below.
--- NOTE | 2024-10-11 10:14 | Fluoroscopy Report ---
FL lumbar spine 2-3V CLINICAL HISTORY: T10-L2 DECOMPRESSION AND FUSION COMPARISON STUDY: 10/10/2024 FLUOROSCOPY TIME: 36 seconds FLUOROSCOPY IMAGES: 4 EXPOSURE DOSE: 9 mGy FINDINGS: Fluoroscopy was provided for thoracolumbar spinal fusion. IMPRESSION: Intraoperative fluoroscopy. ACT 112: Negative or not required by law. Electronically signed by: Shaquille Jimenez M.D. 10/11/2024 10:13 AM
[2024-10-11] MEDS: fentaNYL citrate PF 100 MCG/2 ML VIAL IV PRN (10:47)
--- NOTE | 2024-10-11 10:55 | Anesthesiology Progress Note ---
Date of Service October 11, 2024 Anesthesia Post Procedure Vital Signs Vital Signs: Temp Pulse Pulse Pulse Resp BP Pulse Ox 10/11/24 10:45 70 14 148/75 H 94 10/11/24 10:35 76 16 150/76 H 100 10/11/24 10:25 36.6 C 71 12 134/67 99 10/11/24 07:05 62 10/11/24 07:00 36.8 C 71 20 146/78 H 95 10/11/24 02:43 36.5 C 65 18 157/78 H 96 10/10/24 22:39 36.4 C L 65 18 145/66 H 95 10/10/24 21:36 68 10/10/24 19:33 36.9 C 70 18 146/74 H 94 10/10/24 16:41 77 10/10/24 14:59 36.4 C L 78 18 116/58 L 95 10/10/24 11:03 36.5 C 72 16 149/50 H 95 O2 Del Method O2 Flow Rate 10/11/24 10:45 Nasal Cannula 2 10/11/24 10:35 Oxymask 3 10/11/24 10:25 Oxymask 6 10/11/24 07:05 10/11/24 07:00 Room Air 10/11/24 02:43 Room Air 10/10/24 22:39 Room Air 10/10/24 21:36 10/10/24 19:33 Room Air 10/10/24 16:41 10/10/24 14:59 Room Air 10/10/24 11:03 Room Air Pain Intensity Right Lower Back: Pain Intensity: 8 Right Thigh: Pain Intensity: 7 Back: Pain Intensity: 8 Transfer of Care Handoff Completed per policy Notes Mental Status: alert / awake / arousable Patient Amnestic to Procedure: Yes Nausea / Vomiting: adequately controlled Pain: adequately controlled Airway Patency, RR, SpO2: stable & adequate BP & HR: stable & adequate Hydration State: stable & adequate Anesthetic Complications: no major complications apparent and Pt Satisfied with anesthetic care
[2024-10-11] MEDS ORDERED: PROMETHAZINE 12.5 MG/50.5 ML BAG IV PRN (11:28)
[2024-10-11] MEDS ORDERED: traMADol HCL 50 MG TABLET PO PRN (11:28)
[2024-10-11] MEDS ORDERED: bisacodyL 10 MG SUPP PR PRN (11:28)
[2024-10-11] MEDS ORDERED: ACETAMINOPHEN 1,000 MG/100 ML VIAL IV PRN (11:28)
[2024-10-11] MEDS ORDERED: LORazepam 0.5 MG TAB PO PRN (11:28)
[2024-10-11] MEDS ORDERED: DO NOT ADMINISTER PNEUMOCOCCAL VACCINE PRN (11:28)
[2024-10-11] MEDS ORDERED: ONDANSETRON 4 MG OD TAB PO PRN (11:28)
[2024-10-11] MEDS ORDERED: METOCLOPRAMIDE HCL INJ 5 MG/ML 2 ML VIAL IV PRN (11:28)
[2024-10-11] MEDS ORDERED: hydrOXYzine HCl 25 MG TAB PO PRN (11:28)
[2024-10-11] MEDS ORDERED: NALOXONE HCL 0.4 MG/1 ML VIAL/CARP IV PRN (11:28)
[2024-10-11] MEDS ORDERED: oxyCODONE HCL IR 5 MG TAB (IMMEDIATE RELEASE) PO PRN (11:28)
[2024-10-11] MEDS ORDERED: MAGNESIUM HYDROXIDE SUSP 30 ML UDC PO PRN (11:28)
[2024-10-11] MEDS ORDERED: LORazepam 2 MG/1 ML VIAL IV PRN (11:28)
[2024-10-11] MEDS ORDERED: ALUMINUM/MAGNESIUM SUSP 30 ML UDC PO PRN (11:28)
[2024-10-11] MEDS ORDERED: SOD PHOSPHATE/SOD BIPHOSPHATE ENEMA 132 ML BTL PR PRN (11:28)
[2024-10-11] MEDS ORDERED: diphenhydrAMINE Capsule 25 MG CAP PO PRN (11:28)
[2024-10-11] MEDS ORDERED: DO NOT ADMINISTER FLU VACCINE PRN (11:28)
[2024-10-11] MEDS ORDERED: FAMOTIDINE 20 MG TAB PO PRN (11:28)
--- NOTE | 2024-10-11 11:50 | Hospitalist Progress Note ---
Date of Service October 11, 2024 Assessment & Plan (1) Right sided weakness: (2) Confusion: (3) Dizziness: (4) Depression: (5) HTN (hypertension): (6) Dyslipidemia: (7) Diabetes mellitus, type II: (8) COPD (chronic obstructive pulmonary disease): (9) Migraine: Plan 74 year old male with PMH significant for DMII, HTN, HLD, COPD, migraine, depression, and history of L pontine stroke who presented to the ED today with confusion, right sided weakness, and slurred speech who is being admitted for a stroke workup. 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 -Patient with weakness in RUE and RLE -Unknown if this is related to previous L pontine stroke or new weakness -MRI w/wo contrast negative for acute stroke -MRI lumbar spine ordered- noting severe degenerative disease and mild compression of cauda equina Plan: -PT/OT consults -Consult neurology - appreciate recs -Continue plavix and atorvastatin -CTA head and neck- neuro recommending outpt neurovascular followup -continue aspirin 81mg daily for 3 weeks -Neurology f/u -POD 0, incentive spirometer ordered -will trend Hgb and creatinine -pain management, DVT prophylaxis per surgery Mild Dementia Metabolic Encephalopathy 2/2 Polypharmacy, resolving -Could be due to stroke, post-fall concussion, declining neurocognitive function, polypharmacy -Patient seen by Neurology Dr. Holm outpatient with workup ongoing (EEG negative for epilepsy per records) and follow up appointment scheduled for 01/23/2025 - notes family hx of parkinsons for the pt -UA, TSH, B12, lyme unremarkable -likely mild dementia Plan: -Delirium precautions. Frequent reorientation, avoid sedating medications as able -f/u outpatient, continue folic acid, thiamine, B12 supplementation -continue famotidine daily for upset stomach Dizziness -Could be due to stroke, post-fall concussion, polypharmacy -Pt currently being worked up for dementia, fam hx of parkinsons, question of associated autonomic dysfunction Plan: -Holding home propranolol and losartan -continue fluoxetine at 40 mg to decrease polypharmacy, help with improving encephalopathy Depression/anxiety -Continue bupropion, buspirone, fluoxetine, trazodone, lorazepam Hypertension -Hold losartan due to stroke workup -Home propranolol also on hold Dyslipidemia -Lipid panel: Chol 120 LDL 53 HDL 42 Tri 124 on 09/06/2024 per records -Continue atorvastatin DMII -Diet controlled COPD -Controlled -Albuterol PRN GERD -Continue pantoprazole and tums PRN Migraine -Controlled -rizatriptan PRN -Hold propranolol due to stroke workup and bradycardia I spent a total of 35 minutes in direct patient care, including [id number] time with the patient and/or family, reviewing medical records, ordering and reviewing diagnostic tests, and coordinating care with other healthcare providers. This time includes: history taking, physical examination, medical decision making, counseling, ECG interpretation, imaging interpretation, lab interpretation, orders, and education, excluding time spent in the performance of separately billed services. Admission and Anticipated Discharge Date Admission Date: September 30, 2024 Subjective Patient in OR for surgery today. Review of Systems Review of Systems: -not done due to being in OR Physical Exam Physical Exam: -not done due to being in OR Results & Data Results & Data Vital Signs (Past 12 Hours) Vital Signs Temp Pulse Pulse Pulse Resp BP Pulse Ox 10/11/24 11:05 36.7 C 76 12 147/73 H 97 10/11/24 10:55 69 14 146/81 H 98 10/11/24 10:45 70 14 148/75 H 94 10/11/24 10:35 76 16 150/76 H 100 10/11/24 10:25 36.6 C 71 12 134/67 99 10/11/24 07:05 62 10/11/24 07:00 36.8 C 71 20 146/78 H 95 10/11/24 02:43 36.5 C 65 18 157/78 H 96 O2 Del Method O2 Flow Rate 10/11/24 11:05 Nasal Cannula 2 10/11/24 10:55 Nasal Cannula 2 10/11/24 10:45 Nasal Cannula 2 10/11/24 10:35 Oxymask 3 10/11/24 10:25 Oxymask 6 10/11/24 07:05 10/11/24 07:00 Room Air 10/11/24 02:43 Room Air Laboratory Results -personally reviewed, no leukocytosis, Hgb of 16.5, creatinine stable at 0.79 Medications Administered Aspirin (Aspirin 81 Mg Ectab) 81 mg PO [facility] Stop: 10/31/24 14:44 Last Admin: 10/02/24 08:47 Dose: 81 mg Documented By: Admin: 10/01/24 15:54 Dose: 81 mg Documented By: JORGE Atorvastatin Calcium (Atorvastatin 40 Mg Tab) 40 mg PO DAILY [facility] Stop: 10/31/24 08:59 Last Admin: 10/10/24 08:42 Dose: 40 mg Documented By: Admin: 10/09/24 09:42 Dose: 40 mg Documented By: Admin: 10/08/24 09:32 Dose: 40 mg Documented By: Admin: 10/07/24 08:44 Dose: 40 mg Documented By: Admin: 10/06/24 09:14 Dose: 40 mg Documented By: Admin: 10/05/24 08:43 Dose: 40 mg Documented By: Admin: 10/04/24 08:52 Dose: 40 mg Documented By: Admin: 10/03/24 08:28 Dose: 40 mg Documented By: Admin: 10/02/24 08:49 Dose: 40 mg Documented By: Admin: 10/01/24 08:50 Dose: 40 mg Documented By: JORGE Bupropion HCl (Bupropion Xl 150 Mg Tabcr) 150 mg PO DAILY [facility] Stop: 10/31/24 08:59 Last Admin: 10/10/24 08:42 Dose: 150 mg Documented By: Admin: 10/09/24 09:42 Dose: 150 mg Documented By: Admin: 10/08/24 09:32 Dose: 150 mg Documented By: Admin: 10/07/24 08:43 Dose: 150 mg Documented By: Admin: 10/06/24 09:14 Dose: 150 mg Documented By: Admin: 10/05/24 08:43 Dose: 150 mg Documented By: Admin: 10/04/24 08:52 Dose: 150 mg Documented By: Admin: 10/03/24 08:28 Dose: 150 mg Documented By: Admin: 10/02/24 08:47 Dose: 150 mg Documented By: Admin: 10/01/24 08:50 Dose: 150 mg Documented By: JORGE Famotidine (Famotidine 20 Mg Tab) 20 mg PO QAM [facility] Stop: 11/07/24 11:59 Last Admin: 10/10/24 08:41 Dose: 20 mg Documented By: Admin: 10/09/24 09:45 Dose: 20 mg Documented By: Admin: 10/08/24 12:10 Dose: 20 mg Documented By: SWAPNA Fluoxetine HCl (Fluoxetine Hcl 20 Mg Cap) 40 mg PO DAILY [facility] Stop: 10/31/24 08:59 Last Admin: 10/10/24 08:42 Dose: 40 mg Documented By: Admin: 10/09/24 09:42 Dose: 40 mg Documented By: Admin: 10/08/24 09:32 Dose: 40 mg Documented By: Admin: 10/07/24 08:43 Dose: 40 mg Documented By: Admin: 10/06/24 09:14 Dose: 40 mg Documented By: Admin: 10/05/24 08:43 Dose: 40 mg Documented By: Admin: 10/04/24 08:52 Dose: 40 mg Documented By: Admin: 10/03/24 08:29 Dose: 40 mg Documented By: Admin: 10/02/24 08:48 Dose: 40 mg Documented By: Admin: 10/01/24 08:50 Dose: 40 mg Documented By: JORGE Folic Acid (Folic Acid 1 Mg Tab) 1 mg PO [facility] Stop: 11/05/24 08:59 Last Admin: 10/10/24 08:42 Dose: 1 mg Documented By: Admin: 10/09/24 09:42 Dose: 1 mg Documented By: Admin: 10/08/24 09:33 Dose: 1 mg Documented By: Admin: 10/07/24 08:43 Dose: 1 mg Documented By: Admin: 10/06/24 09:14 Dose: 1 mg Documented By: WERNER Lactated Ringer's (Lr) 1,000 mls @ 15 mls/hr IV .Q24H [facility] Stop: 10/14/24 07:14 Last Admin: 10/11/24 07:16 Dose: 15 mls/hr Documented By: ULISES Lisinopril (Lisinopril 10 Mg Tab) 10 mg PO QAM [facility] Stop: 11/09/24 08:59 Last Admin: 10/10/24 08:42 Dose: 10 mg Documented By: LEYDI Pantoprazole Sodium (Pantoprazole 40 Mg Tab) 40 mg PO BID [facility] Stop: 10/30/24 20:59 Last Admin: 10/10/24 20:00 Dose: 40 mg Documented By: Admin: 10/10/24 08:42 Dose: 40 mg Documented By: Admin: 10/09/24 20:00 Dose: 40 mg Documented By: Admin: 10/09/24 09:42 Dose: 40 mg Documented By: Admin: 10/08/24 20:51 Dose: 40 mg Documented By: [id number] Admin: 10/08/24 09:33 Dose: 40 mg Documented By: Admin: 10/07/24 20:47 Dose: 40 mg Documented By: Kiko Admin: 10/07/24 08:43 Dose: 40 mg Documented By: Admin: 10/06/24 20:09 Dose: 40 mg Documented By: Admin: 10/06/24 08:38 Dose: 40 mg Documented By: Admin: 10/05/24 21:47 Dose: 40 mg Documented By: Admin: 10/05/24 08:43 Dose: 40 mg Documented By: Admin: 10/04/24 21:29 Dose: 40 mg Documented By: Admin: 10/04/24 08:53 Dose: 40 mg Documented By: Admin: 10/03/24 20:25 Dose: 40 mg Documented By: Admin: 10/03/24 08:28 Dose: 40 mg Documented By: Admin: 10/02/24 20:17 Dose: 40 mg Documented By: Admin: 10/02/24 08:49 Dose: 40 mg Documented By: Admin: 10/01/24 20:18 Dose: 40 mg Documented By: Admin: 10/01/24 08:50 Dose: 40 mg Documented By: Admin: 09/30/24 21:00 Dose: 40 mg Documented By: PETRONA Thiamine HCl (Thiamine Hcl 100 Mg Tab) 100 mg PO QAM [facility] Stop: 11/05/24 08:59 Last Admin: 10/10/24 08:42 Dose: 100 mg Documented By: Admin: 10/09/24 09:42 Dose: 100 mg Documented By: Admin: 10/08/24 09:33 Dose: 100 mg Documented By: Admin: 10/07/24 08:44 Dose: 100 mg Documented By: Admin: 10/06/24 09:14 Dose: 100 mg Documented By: WERNER Vitamin B Complex (Vitamin B Complex Tab) 1 tab PO QAM [facility] Stop: 11/05/24 08:59 Last Admin: 10/10/24 08:42 Dose: 1 tab Documented By: Admin: 10/09/24 09:42 Dose: 1 tab Documented By: Admin: 10/08/24 09:33 Dose: 1 tab Documented By: Admin: 10/07/24 08:43 Dose: 1 tab Documented By: Admin: 10/06/24 09:14 Dose: 1 tab Documented By: WERNER
[2024-10-11] MEDS: dexAMETHasone 6 MG in SYRINGE 0 ML IV SCH (13:03)
[2024-10-11] MEDS: HYDROmorphone INJ 0.5 MG/0.5 ML SYR IV PRN (13:04)
[2024-10-11] MEDS: ceFAZolin 1000MG 1,000 MG/7.5 ML SYR IV SCH (16:27)
[2024-10-11] MEDS: HYDROmorphone INJ 1 MG/ML SYRINGE IV PRN (16:27)
--- NOTE | 2024-10-11 17:40 | Electrocardiogram Report ---
Test Reason : Blood Pressure : */* mmHG Vent. Rate : 98 BPM Atrial Rate : 98 BPM P-R Int : 166 ms QRS Dur : 88 ms QT Int : 372 ms P-R-T Axes : 58 25 68 degrees QTcB Int : 474 ms Normal sinus rhythm Nonspecific ST abnormality When compared with ECG of 30-Sep-2024 13:28, Vent. rate has increased by 40 bpm Nonspecific T wave abnormality now evident in Inferior leads QT has lengthened Confirmed by Jonathon Coley ([id number]) on 10/11/2024 5:39:30 PM Referred By: REFERRED SELF Confirmed By: Jonathon Coley
[2024-10-11] MEDS: DOCUSATE SODIUM/SENNA 50/8.6MG TAB PO SCH (20:36)
[2024-10-11] MEDS: traZODone HCL 50 MG TAB PO SCH (20:36)
[2024-10-12] MEDS: POLYETHYLENE (MIRALAX) 17 GM PACK PO SCH (05:06)
[2024-10-12 06:48] LABS: Basophils # (auto) 0.02 K/uL (0.00-0.20); Basophils % (auto) 0.1 %; Hematocrit (blood only) 44.3 % (42.0-52.0); Hemoglobin 14.9 g/dl (14.0-18.0); Immature Granulocytes # (auto) 0.15 K/uL (0.01-0.20); Immature Granulocytes % (auto) 0.7 %; Lymphocytes # (auto) 0.66 K/uL (1.20-3.40); Lymphocytes % (auto) 3.1 %; Mean Corpuscular Hemoglobin 30.4 pg (25.0-34.0); Mean Corpuscular Hgb Conc 33.6 g/dL (32.0-36.0); Mean Corpuscular Volume 90.4 fL (80.0-100.0); Mean Platelet Volume 11.2 fL (9.4-12.4); Monocytes # (auto) 1.84 K/uL (0.11-0.59); Monocytes % (auto) 8.6 %; Neutrophils # (auto) 18.84 K/uL (1.40-6.50); Neutrophils % (auto) 87.5 %; Platelet Count 217 K/uL (130-400); RDW Coefficient of Variation 13.4 % (11.5-14.5); RDW Standard Deviation 44.2 fL (36.4-46.3); White Blood Count 21.51 K/ul (4.8-10.8)
--- NOTE | 2024-10-12 09:18 | Orthopedic Progress Note ---
Date of Service October 12, 2024 Assessment & Plan (1) Myelopathy concurrent with and due to spinal stenosis of thoracic region: Plan: Today we will initiate physical therapy ambulate as tolerated. Monitor his CHARLOTTE output. Hopefully discharge to rehab in the next few days. Admission and Anticipated Discharge Date Admission Date: September 30, 2024 Subjective Patient's pain is controlled. Denies any numbness or tingling to his legs. Physical Exam Physical Exam: On exam patient sitting up in bed appears comfortable. Discussed when to testing. Results & Data Vital Signs (Past 12 Hours) Vital Signs Temp Pulse Pulse Pulse Resp BP Pulse Ox 10/12/24 07:41 36.6 C 73 18 144/72 H 94 10/12/24 07:15 84 10/12/24 02:44 36.5 C 76 18 144/56 H 94 10/11/24 23:36 74 10/11/24 22:16 36.8 C 76 18 135/72 94 O2 Del Method 10/12/24 07:41 Room Air 10/12/24 07:15 10/12/24 02:44 Room Air 10/11/24 23:36 10/11/24 22:16 Room Air
[2024-10-12 11:27] LABS: BUN Creatinine Ratio 18.7 (10-20); Creatinine Clr Calc Pharmacy 84.9 ml/min
--- NOTE | 2024-10-12 14:23 | Hospitalist Progress Note ---
Date of Service October 12, 2024 Assessment & Plan (1) Right sided weakness: (2) Confusion: (3) Dizziness: (4) Depression: (5) HTN (hypertension): (6) Dyslipidemia: (7) Diabetes mellitus, type II: (8) COPD (chronic obstructive pulmonary disease): (9) Migraine: Plan 74 year old male with PMH significant for DMII, HTN, HLD, COPD, migraine, depression, and history of L pontine stroke who presented to the ED today with confusion, right sided weakness, and slurred speech who is being admitted for a stroke workup. 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 Ac on 10/11/2024 --Neck CTA:Moderate plaque with a maximum 60% stenosis in the proximal right internal carotid artery. Mild plaque with a maximum 30% stenosis in the proximal left internal carotid artery. Intact vertebral artery flow bilaterally. -- Continue aspirin (for 3 weeks), Lipitor -- Plan to resume home Plavix as able -- Appreciate neurology input: Needs outpatient neurovascular follow-up on discharge -Appreciate orthopedic spine input -Monitor drain output -continue PT OT Leukocytosis likely due to Decadron use Monitor CBC Mild Dementia Metabolic Encephalopathy 2/2 Polypharmacy, resolving -Could be due to stroke, post-fall concussion, declining neurocognitive function, polypharmacy -Patient seen by Neurology Dr. Holm outpatient with workup ongoing (EEG negative for epilepsy per records) and follow up appointment scheduled for 01/23/2025 - notes family hx of parkinsons for the pt -UA, TSH, B12, lyme unremarkable -likely mild dementia -Continue Delirium precautions. Frequent reorientation, avoid sedating medications as able -f/u outpatient, continue folic acid, thiamine, B12 supplementation Dizziness -Could be due to stroke, post-fall concussion, polypharmacy -Pt currently being worked up for dementia, family hx of parkinsons, question of associated autonomic dysfunction --Adjust antihypertensives as needed -continue fluoxetine at 40 mg to decrease polypharmacy, help with improving encephalopathy Depression/anxiety -Continue bupropion, buspirone, fluoxetine, trazodone, lorazepam Hypertension -Held losartan--started on lisinopril 10mg daily -Resume propranolol at 20mg daily Dyslipidemia -Lipid panel: Chol 120 LDL 53 HDL 42 Tri 124 on 09/06/2024 per records -Continue atorvastatin DM II -Diet controlled COPD -Controlled -Albuterol PRN GERD -Continue pantoprazole and tums PRN Migraine -Controlled -rizatriptan PRN -Resume propranolol at lower dose as patient had transient bradycardia DVT Px: SCDs, encouraged to ambulate Post OP Code Status Full code Admission and Anticipated Discharge Date Admission Date: September 30, 2024 Subjective Patient is seen and examined at bedside States having back pain surgical site No other complaints today Denies any chest pain, dyspnea, nausea, vomiting, abdominal pain Family at bedside during my encounter Review of Systems Review of Systems: All systems reviewed & are unremarkable except as noted in Subjective Physical Exam Physical Exam: Physical Exam: Vitals signs as noted above General Appearance:Moderately built and nourished, no apparent distress Head: normocephalic, Atraumatic Eyes: normal inspection, EOMI Neck: supple, Trachea midline Respiratory/Chest: Normal breath sounds, CTA, No accessory muscle use Cardiovascular: S1, S2, No murmur, bradycardia Abdomen/GI:Soft, Non tender, Bowel sounds present Back:Surgical site in dressing, +Drain Extremities/Musculoskeletal:normal inspection, no edema Neurologic/Psych:AAOX3, RUE 4/5, RLE 3-4/5 Skin: normal color, warm Results & Data Results & Data Vital Signs (Past 12 Hours) Vital Signs Temp Pulse Pulse Pulse Resp BP Pulse Ox 10/12/24 11:37 36.7 C 104 H 18 130/70 95 10/12/24 07:41 36.6 C 73 18 144/72 H 94 10/12/24 07:15 84 10/12/24 02:44 36.5 C 76 18 144/56 H 94 O2 Del Method 10/12/24 11:37 Room Air 10/12/24 07:41 Room Air 10/12/24 07:15 10/12/24 02:44 Room Air Laboratory Results Short CBC 10/12/24 Range/Units 05:36 WBC 21.51 H D (4.8-10.8) K/ul Hgb 14.9 (14.0-18.0) g/dl Hct 44.3 (42.0-52.0) % Plt Count 217 (130-400) K/uL [facility] 10/12/24 05:36 Sodium 138 Potassium 4.0 Chloride 103 Carbon Dioxide 23 BUN 14 Creatinine 0.75 Glucose 154 H Calcium 9.0
[2024-10-12] MEDS: diphenhydrAMINE 2%/ZINC 0.1% CREAM 28.4GM TUBE EXT PRN (21:00)
[2024-10-12] MEDS: LORATADINE 10 MG TAB PO ONE (21:02)
[2024-10-13] MEDS: oxyCODONE HCL IR 5 MG TAB (IMMEDIATE RELEASE) PO PRN (02:02)
[2024-10-13] MEDS: ACETAMINOPHEN 500 MG TAB PO PRN (04:47)
[2024-10-13 06:37] LABS: Hematocrit (blood only) 45.1 % (42.0-52.0); Mean Corpuscular Hemoglobin 30.2 pg (25.0-34.0); Mean Corpuscular Hgb Conc 33.3 g/dL (32.0-36.0); Mean Corpuscular Volume 90.7 fL (80.0-100.0); Mean Platelet Volume 10.6 fL (9.4-12.4); Platelet Count 190 K/uL (130-400); RDW Standard Deviation 47.1 fL (36.4-46.3); Red Blood Count 4.97 M/uL (4.70-6.10); White Blood Count 17.06 K/ul (4.8-10.8)
[2024-10-13 06:54] LABS: BUN Creatinine Ratio 27.8 (10-20); Calcium 9.2 mg/dl (8.6-10.3); Creatinine Clr Calc Pharmacy 80.6 ml/min; Potassium 4.1 mmol/L (3.5-5.1)
--- NOTE | 2024-10-13 08:27 | Orthopedic Progress Note ---
Date of Service October 13, 2024 Assessment & Plan (1) Myelopathy concurrent with and due to spinal stenosis of thoracic region: Plan: Edi is postoperative day 2 status post hard removal L2-4, thoracic decompression with instrumented fusion from T10-L4. Will maintain CHARLOTTE drain. DVT prophylaxis is in the form teds and SCDs. Continue with physical therapy and ambulation. Work on aggressive bowel regimen. Discharge is to SNF when stable Admission and Anticipated Discharge Date Admission Date: September 30, 2024 Subjective Edi is postoperative day 2 status post hardware removal L2-4, decompression T10- L2 with instrumented fusion from T10-L4. CHARLOTTE drain output last shift is 70 cc. Pain is greatly improved. Yesterday in physical therapy Ambulating 200 feet. H&H is morning are 15.0 and 45.1 respectively. No other complaints. Review of Systems Review of Systems: All systems reviewed & are unremarkable except as noted in HPI & below Physical Exam Physical Exam: He is resting in bed in no acute distress Alert and oriented x 3 dressing is clean dry and intact with functioning CHARLOTTE drain Strength is 5 5 bilateral lower extremities calf soft nontender bilaterally Results & Data Vital Signs (Past 12 Hours) Vital Signs Temp Pulse Pulse Resp BP Pulse Ox O2 Del Method 10/13/24 08:03 36.5 C 78 16 134/73 94 Room Air 10/13/24 07:09 80 10/13/24 02:15 36.6 C 88 20 137/56 L 93 Room Air 10/12/24 23:13 88 10/12/24 22:45 36.5 C 80 20 156/78 H 93 Room Air
--- NOTE | 2024-10-13 08:50 | Hospitalist Progress Note ---
Date of Service October 13, 2024 Assessment & Plan (1) Myelopathy concurrent with and due to spinal stenosis of thoracic region: (2) Stroke-like symptoms: (3) Confusion: (4) Dizziness: (5) Depression: (6) HTN (hypertension): (7) Dyslipidemia: (8) Diabetes mellitus, type II: (9) COPD (chronic obstructive pulmonary disease): (10) Migraine: Plan 74 year old male with PMH significant for DMII, HTN, HLD, COPD, migraine, depression, and history of L pontine stroke who presented to the ED on 09/30 with confusion, right sided weakness, and slurred speech who was admitted for a stroke workup and was found to have severe spinal stenosis and is s/p surgery with Dr Ac on 10/11. 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 Ac on 10/11 -Ortho spine recs for post op management of pain control, activity level, drain management -PT/OT consults recommending acute rehab --PT assessment 10/12 noted decreased ROM, strength, tolerance to activities, and balance --OT assessment 10/12 noted balance deficits and reduced activity tolerance causing increased risk for falls during ADLS and functional mobility History of L pontine CVA -Patient presented with weakness in RUE and RLE - unknown if this was related to previous L pontine stroke or new weakness -MRI w/wo contrast negative for acute stroke -Neck CTA: Moderate plaque with a maximum 60% stenosis in the proximal right internal carotid artery. Mild plaque with a maximum 30% stenosis in the proximal left internal carotid artery. Intact vertebral artery flow bilaterally. -Neurology recommends outpatient ambulatory referral to neurosurgery endovascular team for further monitoring -Resume home plavix tomorrow -Discontinue aspirin Mild Dementia Metabolic Encephalopathy 2/2 Polypharmacy, resolving -Could be due to stroke, post-fall concussion, declining neurocognitive function, polypharmacy -Patient seen by Neurology Dr. Holm outpatient with workup ongoing (EEG negative for epilepsy per records) and follow up appointment scheduled for 01/23/2025 - notes family hx of parkinsons for the pt -UA, TSH, B12, lyme unremarkable -Likely mild dementia -Continue delirium precautions - frequent reorientation, avoid sedating medications as able -Continue folic acid, thiamine, vitamin B supplementation Dizziness -Could be due to stroke, post-fall concussion, polypharmacy -Pt currently being worked up for dementia, family hx of parkinsons, question of associated autonomic dysfunction -Adjust antihypertensives as needed Depression/anxiety -Continue bupropion, buspirone, fluoxetine, trazodone, lorazepam Hypertension -Held losartan--started on lisinopril 10mg daily -Resume propranolol at 20mg daily Dyslipidemia -Lipid panel: Chol 120 LDL 53 HDL 42 Tri 124 on 09/06/2024 per records -Continue atorvastatin DM II -Diet controlled COPD -Controlled -Albuterol PRN GERD -Continue pantoprazole and tums PRN Migraine -Controlled -Rizatriptan PRN -Resume propranolol at lower dose as patient had transient bradycardia DVT Prophylaxis: SCDs and TEDs Code Status: FULL CODE PCP: Zaid Arnold Patient seen in collaboration with Dr Perez. Please see addendum. I spent a total of 60 minutes coordinating, documenting and providing care for this patient excluding time spent in the performance of separately billed services or time spent by another provider/QHP. Admission and Anticipated Discharge Date Admission Date: September 30, 2024 Supervising Physician Co-Signing Physician Notes Patient is seen and examined at bedside. Back pain at surgical site better today. Had PT evaluation earlier today. Still has some right leg weakness. [place] drain output decreasing. Physical Exam: Vitals signs as noted above General Appearance:Moderately built and nourished, no apparent distress Head: normocephalic, Atraumatic Eyes: normal inspection, EOMI Neck: supple, Trachea midline Respiratory/Chest: Normal breath sounds, CTA, No accessory muscle use Cardiovascular: S1, S2, No murmur, bradycardia Abdomen/GI:Soft, Non tender, Bowel sounds present Back:Surgical site in dressing, +Drain Extremities/Musculoskeletal:normal inspection, no edema Neurologic/Psych:AAOX3, RUE 4/5, RLE 4/5 Skin: normal color, warm Compression of Cauda Equina Severe Degenerative Spine Disease S/P removal of posterior instrumentation L2 L4, exploration of fusion L2 L4, revision decompression thoracic spine with Dr. Ac on 10/11/2024 Leukocytosis secondary to Decadron use Continue PT OT, pain control Bowel regimen to prevent constipation Will need rehab placement Appreciate orthopedic spine input H/O CVA Resume Plavix tomorrow Continue statin Hypertension Adjust antihypertensives as needed BP stable I personally interviewed and examined the patient at bedside. I have reviewed the advanced practitioner's documentation on the date of service referred in note and agree with plan. Patient's care is coordinated with Laura PATRICK. Please refer to the documentation above for details of patient's presentation and for discussion of other issues. I spent a total of25 minutes coordinating, documenting, and providing care for this patient excluding time spent in the performance of separately billed services or time spent by another provider/QHP. Subjective Patient seen sitting at the edge of the bed Reports pain in his back as he just worked with PT Denies chest pain, SOB, abdominal pain, N/V/D Passing gas but no bowel movement yet Review of Systems Review of Systems: All systems reviewed & are unremarkable except as noted in Subjective Physical Exam Physical Exam: Gen/Psych: WD/WN, sitting up in bed, NAD, A&Ox3 HEENT: Normocephalic, atraumatic, conjunctivae pink, sclerae anicteric, mucous membranes moist Lung: Clear to auscultation bilaterally, no wheezes/rales/rhonchi Heart: Regular rate and rhythm, no murmurs/rubs/gallops Extremities: Normal peripheral pulses, no edema Abdomen: Soft, NT, ND, +BS x 4 MSK: LE strength 4/5, requiring assistance to get legs into bed from seated position Skin: Warm and dry, no rash, [place] drain in place, island dressing c/d/i Results & Data Results & Data Vital Signs (Past 12 Hours) Vital Signs Temp Pulse Pulse Resp BP Pulse Ox O2 Del Method 10/13/24 08:03 36.5 C 78 16 134/73 94 Room Air 10/13/24 07:09 80 10/13/24 02:15 36.6 C 88 20 137/56 L 93 Room Air 10/12/24 23:13 88 10/12/24 22:45 36.5 C 80 20 156/78 H 93 Room Air Laboratory Results Short CBC 10/13/24 Range/Units 06:11 WBC 17.06 H (4.8-10.8) K/ul Hgb 15.0 (14.0-18.0) g/dl Hct 45.1 (42.0-52.0) % Plt Count 190 (130-400) K/uL BMP 10/12/24 10/13/24 05:36 06:11 Sodium 138 138 Potassium 4.0 4.1 Chloride 103 102 Carbon Dioxide 23 29 BUN 14 22 Creatinine 0.75 0.79 Glucose 154 H 132 H Calcium 9.0 9.2 I have independently reviewed and interpreted patient's admitting labs including CBC and BMP. Medications Administered Current Inpatient Medications Acetaminophen (Acetaminophen 500 Mg Tab) 1,000 mg PO Q8H PRN PRN Reason: MILD Pain Scale 1,2,3 & Pre PT Stop: 11/10/24 11:27 Last Admin: 10/13/24 04:47 Dose: 1,000 mg Aspirin (Aspirin 81 Mg Ectab) 81 mg PO QAM [facility] Stop: 10/31/24 14:44 Last Admin: 10/13/24 09:47 Dose: 81 mg Atorvastatin Calcium (Atorvastatin 40 Mg Tab) 40 mg PO DAILY [facility] Stop: 10/31/24 08:59 Last Admin: 10/13/24 09:47 Dose: 40 mg Bisacodyl (Bisacodyl 10 Mg Supp) 10 mg [place] DAILY PRN PRN Reason: Constipation Stop: 11/10/24 11:27 Bupropion HCl (Bupropion Xl 150 Mg Tabcr) 150 mg PO DAILY [facility] Stop: 10/31/24 08:59 Last Admin: 10/13/24 09:47 Dose: 150 mg Famotidine (Famotidine 20 Mg Tab) 20 mg PO QAM [facility] Stop: 11/07/24 11:59 Last Admin: 10/13/24 09:51 Dose: 20 mg Famotidine (Famotidine 20 Mg Tab) 20 mg PO Q12H PRN PRN Reason: Dyspepsia Stop: 11/10/24 11:27 Fluoxetine HCl (Fluoxetine Hcl 20 Mg Cap) 40 mg PO DAILY [facility] Stop: 10/31/24 08:59 Last Admin: 10/13/24 09:47 Dose: 40 mg Folic Acid (Folic Acid 1 Mg Tab) 1 mg PO QAM [facility] Stop: 11/05/24 08:59 Last Admin: 10/13/24 09:47 Dose: 1 mg Hydromorphone HCl (Hydromorphone Inj 0.5 Mg/0.5 Ml Syr) 0.5 mg IV Q3H PRN PRN Reason: MODERATE Pain (Scale 4,5,6) & Pre PT Stop: 10/25/24 11:27 Last Admin: 10/11/24 20:37 Dose: 0.5 mg Hydromorphone HCl (Hydromorphone Inj 1 Mg/Ml Syringe) 1 mg IV Q3H PRN PRN Reason: SEVERE Pain (Scale 7,8,9,10) Stop: 10/25/24 11:27 Last Admin: 10/12/24 21:00 Dose: 1 mg Lactated Ringer's (Lr) 1,000 mls @ 15 mls/hr IV .Q24H [facility] Stop: 10/14/24 07:14 Last Admin: 10/13/24 09:31 Dose: Not Given Influenza Virus Vaccine Quadrival (Do Not Administer Flu Vaccine) 1 each N/A PRN PRN PRN Reason: Notification Stop: 11/10/24 11:27 Lisinopril (Lisinopril 10 Mg Tab) 10 mg PO QAM [facility] Stop: 11/09/24 08:59 Last Admin: 10/13/24 09:47 Dose: 10 mg Naloxone HCl (Naloxone Hcl 0.4 Mg/1 Ml Vial/Carp) 0.1 mg IV Q5M PRN PRN Reason: Oversedation/Resp depression Stop: 11/10/24 11:27 Ondansetron HCl (Ondansetron Inj 2 Mg/Ml 2 Ml Vial) 4 mg IV Q6H PRN PRN Reason: Nausea &/or Vomiting Stop: 11/10/24 11:27 Oxycodone HCl (Oxycodone Hcl Ir 5 Mg Tab (Immediate Release)) 7.5 mg PO Q3HWA PRN PRN Reason: Pain Stop: 10/25/24 11:44 Last Admin: 10/13/24 08:13 Dose: 7.5 mg Pantoprazole Sodium (Pantoprazole 40 Mg Tab) 40 mg PO BID [facility] Stop: 10/30/24 20:59 Last Admin: 10/13/24 09:47 Dose: 40 mg Pneumococcal Polyvalent Vaccine (Do Not Administer Pneumococcal Vaccine) 1 each N/A PRN PRN PRN Reason: Notification Stop: 11/10/24 11:27 Polyethylene Glycol (Polyethylene (Miralax) 17 Gm Pack) 17 gm PO Q6 [facility] Stop: 11/11/24 05:59 Last Admin: 10/13/24 12:35 Dose: 17 gm Propranolol HCl (Propranolol Hcl 20 Mg Tab) 20 mg PO QAM [facility] Stop: 11/12/24 08:59 Last Admin: 10/13/24 09:47 Dose: 20 mg Senna/Docusate Sodium (Docusate Sodium/Senna 50/8.6mg Tab) 2 tab PO HS [facility] Stop: 11/10/24 20:59 Last Admin: 10/12/24 21:05 Dose: 2 tab Thiamine HCl (Thiamine Hcl 100 Mg Tab) 100 mg PO QAM [facility] Stop: 11/05/24 08:59 Last Admin: 10/13/24 09:47 Dose: 100 mg Trazodone HCl (Trazodone Hcl 50 Mg Tab) 50 mg PO [facility] Stop: 11/10/24 20:59 Last Admin: 10/12/24 21:04 Dose: 50 mg Vitamin B Complex (Vitamin B Complex Tab) 1 tab PO QAM [facility] Stop: 11/05/24 08:59 Last Admin: 10/13/24 09:47 Dose: 1 tab Zinc Acetate/Diphenhydramine (Diphenhydramine 2%/Zinc 0.1% Cream 28.4gm Tube) 1 appln EXT QID PRN PRN Reason: itchy skin Stop: 11/11/24 20:27 Last Admin: 10/12/24 21:00 Dose: 1 appln
[2024-10-13] MEDS: PROPRANOLOL HCL 20 MG TAB PO SCH (09:47)
[2024-10-14 07:46] LABS: Hemoglobin 14.4 g/dl (14.0-18.0); Mean Corpuscular Hemoglobin 30.4 pg (25.0-34.0); Mean Corpuscular Hgb Conc 33.5 g/dL (32.0-36.0); Mean Corpuscular Volume 90.7 fL (80.0-100.0); Mean Platelet Volume 10.6 fL (9.4-12.4); Platelet Count 222 K/uL (130-400); RDW Coefficient of Variation 13.9 % (11.5-14.5); Red Blood Count 4.74 M/uL (4.70-6.10); White Blood Count 13.46 K/ul (4.8-10.8)
--- NOTE | 2024-10-14 07:53 | Hospitalist Progress Note ---
Date of Service October 14, 2024 Assessment & Plan (1) Myelopathy concurrent with and due to spinal stenosis of thoracic region: (2) Stroke-like symptoms: (3) Confusion: (4) Dizziness: (5) Depression: (6) HTN (hypertension): (7) Dyslipidemia: (8) Diabetes mellitus, type II: (9) COPD (chronic obstructive pulmonary disease): (10) Migraine: Plan 74 year old male with PMH significant for DMII, HTN, HLD, COPD, migraine, depression, and history of L pontine stroke who presented to the ED on 09/30 with confusion, right sided weakness, and slurred speech who was admitted for a stroke workup and was found to have severe spinal stenosis and is s/p surgery with Dr Ac on 10/11. Severe Degenerative Spine Disease Compression of Cauda Equina MRI lumbar spine on 10/01 revealed severe stenosis and mild compression of cauda equina S/P removal of posterior instrumentation L2 L4, exploration of fusion L2 L4, revision decompression thoracic spine with Dr. Ac on 10/11 Ortho spine recs for post op management of pain control, activity level, drain management PT/OT consults recommending acute rehab - insurance denied [facility], awaiting auth for SNF -PT assessment 10/12 noted decreased ROM, strength, tolerance to activities, and balance -OT assessment 10/12 noted balance deficits and reduced activity tolerance causing increased risk for falls during ADLS and functional mobility History of L pontine CVA Patient presented with weakness in RUE and RLE - unknown if this was related to previous L pontine stroke or new weakness MRI w/wo contrast negative for acute stroke Neck CTA: Moderate plaque with a maximum 60% stenosis in the proximal right internal carotid artery. Mild plaque with a maximum 30% stenosis in the proximal left internal carotid artery. Intact vertebral artery flow bilaterally. Neurology recommends outpatient ambulatory referral to neurosurgery endovascular team for further monitoring Resumed plavix per home dosing Discontinue aspirin Mild Dementia Metabolic Encephalopathy 2/2 Polypharmacy, resolving Could be due to stroke, post-fall concussion, declining neurocognitive function, polypharmacy Patient seen by Neurology Dr. Holm outpatient with workup ongoing (EEG nega tive for epilepsy per records) and follow up appointment scheduled for 01/23/2025 notes family hx of parkinsons for the pt UA, TSH, B12, lyme unremarkable Likely mild dementia Continue delirium precautions - frequent reorientation, avoid sedating medications as able Continue folic acid, thiamine, vitamin B supplementation Dizziness Could be due to stroke, post-fall concussion, polypharmacy Pt currently being worked up for dementia, family hx of parkinsons, question of associated autonomic dysfunction Adjust antihypertensives as needed Depression/anxiety Continue bupropion, buspirone, fluoxetine, trazodone, lorazepam Hypertension Held losartan--started on lisinopril 10mg daily Resume propranolol at 20mg daily Dyslipidemia Lipid panel: Chol 120 LDL 53 HDL 42 Tri 124 on 09/06/2024 per records Continue atorvastatin DM II Diet controlled COPD Controlled Albuterol PRN GERD Continue pantoprazole and tums PRN Migraine Controlled Rizatriptan PRN Resume propranolol at lower dose as patient had transient bradycardia DVT Prophylaxis: SCDs and TEDs Code Status: FULL CODE PCP: Zaid Arnold Disposition: accepted to [facility], awaiting SNF authorization, CM following Patient seen in collaboration with Dr Perez. Please see addendum. I spent a total of 60 minutes coordinating, documenting and providing care for this patient excluding time spent in the performance of separately billed services or time spent by another provider/QHP. Admission and Anticipated Discharge Date Admission Date: September 30, 2024 Supervising Physician Co-Signing Physician Notes Patient is seen and examined at bedside. Feels better today. Was able to ambulate with less difficulty Plan for [place] drain removal possibly today or tomorrow per Ortho Physical Exam: Vitals signs as noted above General Appearance:Moderately built and nourished, no apparent distress Head: normocephalic, Atraumatic Eyes: normal inspection, EOMI Neck: supple, Trachea midline Respiratory/Chest: Normal breath sounds, CTA, No accessory muscle use Cardiovascular: S1, S2, No murmur, bradycardia Abdomen/GI:Soft, Non tender, Bowel sounds present Back:Surgical site in dressing, +Drain Extremities/Musculoskeletal:normal inspection, no edema Neurologic/Psych:AAOX3, RUE 4/5, RLE 4/5 Skin: normal color, warm Compression of Cauda Equina Severe Degenerative Spine Disease S/P removal of posterior instrumentation L2 L4, exploration of fusion L2 L4, revision decompression thoracic spine with Dr. Ac on 10/11/2024 Leukocytosis secondary to Decadron use Continue PT OT, pain control Bowel regimen to prevent constipation Will need rehab placement Appreciate orthopedic spine input Continue current management Needs follow-up with orthopedic spine on discharge H/O CVA Resume Plavix tomorrow Continue statin Hypertension Adjust antihypertensives as needed BP stable I personally interviewed and examined the patient at bedside. I have reviewed the advanced practitioner's documentation on the date of service referred in note and agree with plan. Patient's care is coordinated with Laura PATRICK. Please refer to the documentation above for details of patient's presentation and for discussion of other issues. I spent a total of28 minutes coordinating, documenting, and providing care for this patient excluding time spent in the performance of separately billed services or time spent by another provider/QHP. Subjective Patient seen sitting up in the chair Reports back pain and numbness/tingling in legs is much improved Experiences pain with movement Denies chest pain, SOB, abdominal pain, N/V/D Had a bowel movement this morning Review of Systems Review of Systems: All systems reviewed & are unremarkable except as noted in Subjective Physical Exam Physical Exam: Gen/Psych: WD/WN, sitting up in chair, NAD, A&Ox3 HEENT: Normocephalic, atraumatic, conjunctivae pink, sclerae anicteric, mucous membranes moist Lung: Clear to auscultation bilaterally, no wheezes/rales/rhonchi Heart: Regular rate and rhythm, no murmurs/rubs/gallops Extremities: Normal peripheral pulses, no edema Abdomen: Soft, NT, ND, +BS x 4 Skin: Warm and dry, no rash, [place] drain in place, island dressing c/d/i Results & Data Results & Data Vital Signs (Past 12 Hours) Vital Signs Temp Pulse Pulse Pulse Resp BP Pulse Ox 10/14/24 07:24 36.5 C 69 17 120/68 91 10/14/24 07:14 87 10/14/24 02:51 36.7 C 71 18 131/76 92 10/13/24 23:30 36.7 C 90 18 128/75 93 10/13/24 23:20 90 10/13/24 20:03 36.7 C 83 18 160/73 H 93 O2 Del Method 10/14/24 07:24 Room Air 10/14/24 07:14 10/14/24 02:51 Room Air 10/13/24 23:30 Room Air 10/13/24 23:20 10/13/24 20:03 Room Air Laboratory Results Short CBC 10/14/24 Range/Units 07:21 WBC 13.46 H (4.8-10.8) K/ul Hgb 14.4 (14.0-18.0) g/dl Hct 43.0 (42.0-52.0) % Plt Count 222 (130-400) K/uL BMP 10/14/24 07:21 Sodium 138 Potassium 4.0 Chloride 102 Carbon Dioxide 32 BUN 23 Creatinine 0.66 Glucose 93 Calcium 9.0 I have independently reviewed and interpreted patient's labs including CBC and BMP Medications Administered Current Inpatient Medications Acetaminophen (Acetaminophen 500 Mg Tab) 1,000 mg PO Q8H PRN PRN Reason: MILD Pain Scale 1,2,3 & Pre PT Stop: 11/10/24 11:27 Last Admin: 10/13/24 04:47 Dose: 1,000 mg Atorvastatin Calcium (Atorvastatin 40 Mg Tab) 40 mg PO DAILY [facility] Stop: 10/31/24 08:59 Last Admin: 10/14/24 08:20 Dose: 40 mg Bisacodyl (Bisacodyl 10 Mg Supp) 10 mg [place] DAILY PRN PRN Reason: Constipation Stop: 11/10/24 11:27 Bupropion HCl (Bupropion Xl 150 Mg Tabcr) 150 mg PO DAILY [facility] Stop: 10/31/24 08:59 Last Admin: 10/14/24 08:19 Dose: 150 mg Clopidogrel Bisulfate (Clopidogrel Bisulfate 75 Mg Tab) [facility] [place] Stop: 11/13/24 08:59 Last Admin: 10/14/24 08:19 Dose: 75 mg Famotidine (Famotidine 20 Mg Tab) 20 mg PO QAM [facility] Stop: 11/07/24 11:59 Last Admin: 10/14/24 08:19 Dose: 20 mg Famotidine (Famotidine 20 Mg Tab) 20 mg PO Q12H PRN PRN Reason: Dyspepsia Stop: 11/10/24 11:27 Fluoxetine HCl (Fluoxetine Hcl 20 Mg Cap) 40 mg PO DAILY [facility] Stop: 10/31/24 08:59 Last Admin: 10/14/24 08:20 Dose: 40 mg Folic Acid (Folic Acid 1 Mg Tab) [facility] [place] Stop: 11/05/24 08:59 Last Admin: 10/14/24 08:19 Dose: 1 mg Hydromorphone HCl (Hydromorphone Inj 0.5 Mg/0.5 Ml Syr) 0.5 mg IV Q3H PRN PRN Reason: MODERATE Pain (Scale 4,5,6) & Pre PT Stop: 10/25/24 11:27 Last Admin: 10/11/24 20:37 Dose: 0.5 mg Hydromorphone HCl (Hydromorphone Inj 1 Mg/Ml Syringe) 1 mg IV Q3H PRN PRN Reason: SEVERE Pain (Scale 7,8,9,10) Stop: 10/25/24 11:27 Last Admin: 10/12/24 21:00 Dose: 1 mg Influenza Virus Vaccine Quadrival (Do Not Administer Flu Vaccine) 1 each N/A PRN PRN PRN Reason: Notification Stop: 11/10/24 11:27 Lisinopril (Lisinopril 10 Mg Tab) 10 mg PO QAM [facility] Stop: 11/09/24 08:59 Last Admin: 10/14/24 08:19 Dose: 10 mg Naloxone HCl (Naloxone Hcl 0.4 Mg/1 Ml Vial/Carp) 0.1 mg IV Q5M PRN PRN Reason: Oversedation/Resp depression Stop: 11/10/24 11:27 Ondansetron HCl (Ondansetron Inj 2 Mg/Ml 2 Ml Vial) 4 mg IV Q6H PRN PRN Reason: Nausea &/or Vomiting Stop: 11/10/24 11:27 Oxycodone HCl (Oxycodone Hcl Ir 5 Mg Tab (Immediate Release)) 7.5 mg PO Q3HWA PRN PRN Reason: Pain Stop: 10/25/24 11:44 Last Admin: 10/14/24 08:19 Dose: 7.5 mg Pantoprazole Sodium (Pantoprazole 40 Mg Tab) 40 mg PO BID [facility] Stop: 10/30/24 20:59 Last Admin: 10/14/24 08:20 Dose: 40 mg Pneumococcal Polyvalent Vaccine (Do Not Administer Pneumococcal Vaccine) 1 each N/A PRN PRN PRN Reason: Notification Stop: 11/10/24 11:27 Polyethylene Glycol (Polyethylene (Miralax) 17 Gm Pack) 17 gm PO Q6 [facility] Stop: 11/11/24 05:59 Last Admin: 10/14/24 11:16 Dose: Not Given Propranolol HCl (Propranolol Hcl 20 Mg Tab) 20 mg PO QAM [facility] Stop: 11/12/24 08:59 Last Admin: 10/14/24 08:19 Dose: 20 mg Senna/Docusate Sodium (Docusate Sodium/Senna 50/8.6mg Tab) 2 tab PO [facility] Stop: 11/10/24 20:59 Last Admin: 10/13/24 20:34 Dose: Not Given Thiamine HCl (Thiamine Hcl 100 Mg Tab) [facility] [place] Stop: 11/05/24 08:59 Last Admin: 10/14/24 08:19 Dose: 100 mg Trazodone HCl (Trazodone Hcl 50 Mg Tab) 50 mg PO [facility] Stop: 11/10/24 20:59 Last Admin: 10/13/24 20:34 Dose: 50 mg Vitamin B Complex (Vitamin B Complex Tab) 1 tab PO QAM [facility] Stop: 11/05/24 08:59 Last Admin: 10/14/24 08:19 Dose: 1 tab Zinc Acetate/Diphenhydramine (Diphenhydramine 2%/Zinc 0.1% Cream 28.4gm Tube) 1 appln EXT QID PRN PRN Reason: itchy skin Stop: 11/11/24 20:27 Last Admin: 10/12/24 21:00 Dose: 1 appln
[2024-10-14 08:12] LABS: BUN Creatinine Ratio 34.8 (10-20); Creatinine Clr Calc Pharmacy 96.4 ml/min
[2024-10-14] MEDS: CLOPIDOGREL BISULFATE 75 MG TAB PO SCH (08:19)
--- NOTE | 2024-10-14 10:56 | Orthopedic Progress Note ---
Date of Service October 14, 2024 Assessment & Plan (1) Myelopathy concurrent with and due to spinal stenosis of thoracic region: Plan: At this time we will continue physical therapy await placement. Will most likely discontinue the drain today or tomorrow. Admission and Anticipated Discharge Date Admission Date: September 30, 2024 Subjective Patient's back pain is improving. He feels that his leg function is improving. He is tolerating therapy. Physical Exam Physical Exam: On exam he is good strength testing. The [place] drain is functioning. Results & Data Vital Signs (Past 12 Hours) Vital Signs Temp Pulse Pulse Pulse Resp BP Pulse Ox 10/14/24 07:24 36.5 C 69 17 120/68 91 10/14/24 07:14 87 10/14/24 02:51 36.7 C 71 18 131/76 92 10/13/24 23:30 36.7 C 90 18 128/75 93 10/13/24 23:20 90 O2 Del Method 10/14/24 07:24 Room Air 10/14/24 07:14 10/14/24 02:51 Room Air 10/13/24 23:30 Room Air 10/13/24 23:20
[2024-10-15 07:13] LABS: Hematocrit (blood only) 42.8 % (42.0-52.0); Hemoglobin 14.3 g/dl (14.0-18.0); Mean Corpuscular Hgb Conc 33.4 g/dL (32.0-36.0); Mean Corpuscular Volume 89.9 fL (80.0-100.0); Mean Platelet Volume 11.5 fL (9.4-12.4); Platelet Count 173 K/uL (130-400); RDW Coefficient of Variation 13.6 % (11.5-14.5); RDW Standard Deviation 44.7 fL (36.4-46.3); Red Blood Count 4.76 M/uL (4.70-6.10); White Blood Count 10.94 K/ul (4.8-10.8)
[2024-10-15 07:41] LABS: BUN Creatinine Ratio 33.8 (10-20); Blood Urea Nitrogen 22 mg/dl (6-23); Calcium 8.8 mg/dl (8.6-10.3); Carbon Dioxide 29 mmol/L (21-32); Chloride 101 mmol/L (98-107); Creatinine Clr Calc Pharmacy 97.9 ml/min; Glucose 108 mg/dl (70-99(Fasting))
[2024-10-15 08:41] LABS: Potassium 4.1 mmol/L (3.5-5.1)
--- NOTE | 2024-10-15 09:56 | Orthopedic Progress Note ---
Date of Service October 15, 2024 Assessment & Plan (1) Myelopathy concurrent with and due to spinal stenosis of thoracic region: Plan: At this time we will continue physical therapy. Change dressing and discontinue drain today. Admission and Anticipated Discharge Date Admission Date: September 30, 2024 Subjective Patient's back pain is controlled. He is tolerating physical therapy. Physical Exam Physical Exam: On exam he is comfortable. Good strength testing. Results & Data Vital Signs (Past 12 Hours) Vital Signs Temp Pulse Pulse Resp BP Pulse Ox O2 Del Method 10/15/24 07:40 36.8 C 94 H 16 128/75 94 Room Air 10/15/24 07:12 85 10/15/24 03:40 36.7 C 90 18 132/67 94 Room Air 10/14/24 23:15 36.6 C 83 16 137/65 96 Room Air 10/14/24 23:01 86
--- NOTE | 2024-10-15 15:06 | Hospitalist Progress Note ---
Date of Service October 15, 2024 Assessment & Plan (1) Myelopathy concurrent with and due to spinal stenosis of thoracic region: (2) Stroke-like symptoms: (3) Confusion: (4) Dizziness: (5) Depression: (6) HTN (hypertension): (7) Dyslipidemia: (8) Diabetes mellitus, type II: (9) COPD (chronic obstructive pulmonary disease): (10) Migraine: Plan 74 year old male with PMH significant for DMII, HTN, HLD, COPD, migraine, depression, and history of L pontine stroke who presented to the ED on 09/30 with confusion, right sided weakness, and slurred speech who was admitted for a stroke workup and was found to have severe spinal stenosis and is s/p surgery with Dr Ac on 10/11. 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 Ac on 10/11/2024 Appreciate orthopedic spine help Pain is controlled Drain removed on 10/15/2024 Bowel regimen to prevent constipation Continue PT OT Fall precautions Plan to discharge to SNF when accepted History of L pontine CVA Patient presented with weakness in RUE and RLE - unknown if this was related to previous L pontine stroke or new weakness MRI w/wo contrast negative for acute stroke Neck CTA: Moderate plaque with a maximum 60% stenosis in the proximal right internal carotid artery. Mild plaque with a maximum 30% stenosis in the proximal left internal carotid artery. Intact vertebral artery flow bilaterally. Neurology recommends outpatient ambulatory referral to neurosurgery endovascular team for further monitoring Continue Plavix, atorvastatin Mild Dementia Metabolic Encephalopathy 2/2 Polypharmacy, resolving Could be due to stroke, post-fall concussion, declining neurocognitive function, polypharmacy Patient seen by Neurology Dr. Holm outpatient with workup ongoing (EEG negative for epilepsy per records) and follow up appointment scheduled for 01/23/2025 notes family hx of parkinsons for the pt UA, TSH, B12, lyme unremarkable Likely mild dementia Continue delirium precautions - frequent reorientation, avoid sedating medications as able Continue folic acid, thiamine, vitamin B supplementation Dizziness Could be due to stroke, post-fall concussion, polypharmacy Pt currently being worked up for dementia, family hx of parkinsons, question of associated autonomic dysfunction Adjust antihypertensives as needed Depression/anxiety Continue bupropion, buspirone, fluoxetine, trazodone, lorazepam Hypertension Losartan discontinued Started on lisinopril 10 mg daily Continue at reduced dose propranolol at 20mg daily Monitor blood pressure Dyslipidemia Lipid panel: Chol 120 LDL 53 HDL 42 Tri 124 on 09/06/2024 per records Continue atorvastatin DM II Diet controlled COPD Controlled Albuterol PRN GERD Continue pantoprazole and tums PRN Migraine Controlled Rizatriptan PRN Resume propranolol at lower dose as patient had transient bradycardia DVT Px: SCDs and TEDs Encouraged to ambulate Code Status: FULL CODE Disposition: SNF when accepted Admission and Anticipated Discharge Date Admission Date: September 30, 2024 Subjective Patient is seen and examined at bedside. No new complaints today States feels that his energy is improved No significant back pain at surgical site today Plan for drain removal today Denies any chest pain, dyspnea, nausea, vomiting, abdominal pain Review of Systems Review of Systems: All systems reviewed & are unremarkable except as noted in Subjective Physical Exam Physical Exam: Physical Exam: Vitals signs as noted above General Appearance:Moderately built and nourished, no apparent distress Head: normocephalic, Atraumatic Eyes: normal inspection, EOMI Neck: supple, Trachea midline Respiratory/Chest: Normal breath sounds, CTA, No accessory muscle use Cardiovascular: S1, S2, No murmur, bradycardia Abdomen/GI:Soft, Non tender, Bowel sounds present Back:Surgical site in dressing Extremities/Musculoskeletal:normal inspection, no edema Neurologic/Psych:AAOX3, RUE 4/5, RLE 4/5 Skin: normal color, warm Results & Data Results & Data Vital Signs (Past 12 Hours) Vital Signs Temp Pulse Pulse Resp BP Pulse Ox O2 Del Method 10/15/24 12:07 36.8 C 79 16 99/62 L 94 Room Air 10/15/24 11:29 Room Air 10/15/24 07:40 36.8 C 94 H 16 128/75 94 Room Air 10/15/24 07:12 85 10/15/24 03:40 36.7 C 90 18 132/67 94 Room Air Laboratory Results Short CBC 10/15/24 Range/Units 06:38 WBC 10.94 H (4.8-10.8) K/ul Hgb 14.3 (14.0-18.0) g/dl Hct 42.8 (42.0-52.0) % Plt Count 173 (130-400) K/uL BMP 10/15/24 10/15/24 06:38 08:10 Sodium TNP 138 Potassium TNP 4.1 Chloride 101 Carbon Dioxide 29 BUN 22 Creatinine 0.65 Glucose 108 H Calcium 8.8
[2024-10-15] MEDS ORDERED: Nursing to Pharmacy Communication SCH (19:30)
--- NOTE | 2024-10-16 09:55 | Orthopedic Progress Note ---
Date of Service October 16, 2024 Assessment & Plan (1) Myelopathy concurrent with and due to spinal stenosis of thoracic region: Plan: At this time we will continue physical therapy and anticipate discharge to rehab soon. Admission and Anticipated Discharge Date Admission Date: September 30, 2024 Subjective Back pain is controlled he is tolerating physical therapy. He feels his balance is steadily improving. Physical Exam Physical Exam: Patient is in the chair at the bedside. Constricted testing. He is doing his exercises. Results & Data Vital Signs (Past 12 Hours) Vital Signs Temp Pulse Pulse Resp BP Pulse Ox O2 Del Method 10/16/24 09:47 Room Air 10/16/24 07:42 36.6 C 88 16 152/77 H 97 Room Air 10/16/24 07:18 91 H 10/16/24 03:32 36.9 C 69 16 122/63 96 Room Air 10/15/24 23:28 36.6 C 72 16 114/68 94 Room Air 10/15/24 22:01 73
--- NOTE | 2024-10-16 14:50 | Hospitalist Progress Note ---
Date of Service October 16, 2024 Assessment & Plan (1) Myelopathy concurrent with and due to spinal stenosis of thoracic region: (2) Stroke-like symptoms: (3) Confusion: (4) Dizziness: (5) Depression: (6) HTN (hypertension): (7) Dyslipidemia: (8) Diabetes mellitus, type II: (9) COPD (chronic obstructive pulmonary disease): (10) Migraine: Plan 74 year old male with PMH significant for DMII, HTN, HLD, COPD, migraine, depression, and history of L pontine stroke who presented to the ED on 09/30 with confusion, right sided weakness, and slurred speech who was admitted for a stroke workup and was found to have severe spinal stenosis and is s/p surgery with Dr Ac on 10/11. 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 Ac on 10/11/2024 Appreciate orthopedic spine help Pain is controlled Drain removed on 10/15/2024 Bowel regimen to prevent constipation Continue PT OT Fall precautions Plan to discharge to SNF when accepted Needs follow-up with orthopedic spine on discharge Case management to help with discharge planning History of L pontine CVA Patient presented with weakness in RUE and RLE - unknown if this was related to previous L pontine stroke or new weakness MRI w/wo contrast negative for acute stroke Neck CTA: Moderate plaque with a maximum 60% stenosis in the proximal right internal carotid artery. Mild plaque with a maximum 30% stenosis in the proximal left internal carotid artery. Intact vertebral artery flow bilaterally. Neurology recommends outpatient ambulatory referral to neurosurgery endovascular team for further monitoring Continue Plavix, atorvastatin Mild Dementia Metabolic Encephalopathy 2/2 Polypharmacy, resolving Could be due to stroke, post-fall concussion, declining neurocognitive function, polypharmacy Patient seen by Neurology Dr. Holm outpatient with workup ongoing (EEG negative for epilepsy per records) and follow up appointment scheduled for 01/23/2025 notes family hx of parkinsons for the pt UA, TSH, B12, lyme unremarkable Likely mild dementia Continue delirium precautions - frequent reorientation, avoid sedating medications as able Continue folic acid, thiamine, vitamin B supplementation Dizziness Could be due to stroke, post-fall concussion, polypharmacy Pt currently being worked up for dementia, family hx of parkinsons, question of associated autonomic dysfunction Adjust antihypertensives as needed Depression/anxiety Continue bupropion, buspirone, fluoxetine, trazodone, lorazepam Hypertension Losartan discontinued Started on lisinopril 10 mg daily Continue at reduced dose propranolol at 20mg daily Monitor blood pressure Dyslipidemia Lipid panel: Chol 120 LDL 53 HDL 42 Tri 124 on 09/06/2024 per records Continue atorvastatin DM II Diet controlled COPD Controlled Albuterol PRN GERD Continue pantoprazole and tums PRN Migraine Controlled Rizatriptan PRN Resume propranolol at lower dose as patient had transient bradycardia DVT Px: SCDs and TEDs Encouraged to ambulate Code Status: FULL CODE Disposition: SNF when accepted Admission and Anticipated Discharge Date Admission Date: September 30, 2024 Subjective Patient is seen and examined at bedside. Back pain much improved No new complaint Denies any chest pain, dyspnea, nausea, vomiting, abdominal pain Waiting for placement Review of Systems Review of Systems: All systems reviewed & are unremarkable except as noted in Subjective Physical Exam Physical Exam: Physical Exam: Vitals signs as noted above General Appearance:Moderately built and nourished, no apparent distress Head: normocephalic, Atraumatic Eyes: normal inspection, EOMI Neck: supple, Trachea midline Respiratory/Chest: Normal breath sounds, CTA, No accessory muscle use Cardiovascular: S1, S2, No murmur, bradycardia Abdomen/GI:Soft, Non tender, Bowel sounds present Back:Surgical site in dressing Extremities/Musculoskeletal:normal inspection, no edema Neurologic/Psych:AAOX3, RUE 4/5, RLE 4/5 Skin: normal color, warm Results & Data Results & Data Vital Signs (Past 12 Hours) Vital Signs Temp Pulse Pulse Resp BP Pulse Ox O2 Del Method 10/16/24 14:38 77 10/16/24 11:35 36.7 C 79 16 109/69 95 Room Air 10/16/24 09:47 Room Air 10/16/24 07:42 36.6 C 88 16 152/77 H 97 Room Air 10/16/24 07:18 91 H 10/16/24 03:32 36.9 C 69 16 122/63 96 Room Air
[2024-10-16] MEDS ORDERED: ARTIFICIAL TEARS OPB PRN (18:28)
[2024-10-17] MEDS: PROPRANOLOL HCL 20 MG TAB PO STA (06:56)
[2024-10-17 08:22] LABS: BUN Creatinine Ratio 28.8 (10-20); Calcium 8.7 mg/dl (8.6-10.3); Creatinine Clr Calc Pharmacy 107.9 ml/min; Magnesium 2.1 mg/dl (1.7-2.4); Potassium 3.9 mmol/L (3.5-5.1)
--- NOTE | 2024-10-17 12:02 | Orthopedic Progress Note ---
Date of Service October 17, 2024 Assessment & Plan (1) Myelopathy concurrent with and due to spinal stenosis of thoracic region: Plan: From an orthopedic standpoint Mr. Burden is quite stable and acceptable for discharge. Admission and Anticipated Discharge Date Admission Date: September 30, 2024 Subjective Back pain improved. His ambulation is improved. Physical Exam Physical Exam: Patient is in the chair at the bedside. Strength testing. Is comfortable. Results & Data Vital Signs (Past 12 Hours) Vital Signs Temp Pulse Pulse Resp BP Pulse Ox O2 Del Method 10/17/24 11:04 36.6 C 69 18 100/63 93 Room Air 10/17/24 08:45 Room Air 10/17/24 07:19 36.7 C 77 18 110/68 93 Room Air 10/17/24 07:08 83 10/17/24 06:32 36.8 C 84 16 148/74 H 95 Room Air 10/17/24 03:44 36.6 C 80 16 116/60 95 Room Air
--- NOTE | 2024-10-17 12:33 | Hospitalist Progress Note ---
Date of Service October 17, 2024 Assessment & Plan (1) Myelopathy concurrent with and due to spinal stenosis of thoracic region: (2) Stroke-like symptoms: (3) Confusion: (4) Dizziness: (5) Depression: (6) HTN (hypertension): (7) Dyslipidemia: (8) Diabetes mellitus, type II: (9) COPD (chronic obstructive pulmonary disease): (10) Migraine: Plan 74 year old male with PMH significant for DMII, HTN, HLD, COPD, migraine, depression, and history of L pontine stroke who presented to the ED on 09/30 with confusion, right sided weakness, and slurred speech who was admitted for a stroke workup and was found to have severe spinal stenosis and is s/p surgery with Dr Ac on 10/11. 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 Ac on 10/11/2024 Appreciate orthopedic spine help Pain is controlled Drain removed on 10/15/2024 Bowel regimen to prevent constipation Continue PT OT Fall precautions Pending insurance approval for rehab placement Needs follow-up with orthopedic spine on discharge Patient seemed not interested in rehab placement any longer due to prolonged need for hospitalization Case management to help with discharge planning History of L pontine CVA Patient presented with weakness in RUE and RLE - unknown if this was related to previous L pontine stroke or new weakness MRI w/wo contrast negative for acute stroke Neck CTA: Moderate plaque with a maximum 60% stenosis in the proximal right internal carotid artery. Mild plaque with a maximum 30% stenosis in the proximal left internal carotid artery. Intact vertebral artery flow bilaterally. Neurology recommends outpatient ambulatory referral to neurosurgery endovascular team for further monitoring Continue Plavix, atorvastatin Mild Dementia Metabolic Encephalopathy 2/2 Polypharmacy, resolving Could be due to stroke, post-fall concussion, declining neurocognitive function, polypharmacy Patient seen by Neurology Dr. Holm outpatient with workup ongoing (EEG negative for epilepsy per records) and follow up appointment scheduled for 01/23/2025 notes family hx of parkinsons for the pt UA, TSH, B12, lyme unremarkable Likely mild dementia Continue delirium precautions - frequent reorientation, avoid sedating medications as able Continue folic acid, thiamine, vitamin B supplementation Dizziness Could be due to stroke, post-fall concussion, polypharmacy Pt currently being worked up for dementia, family hx of parkinsons, question of associated autonomic dysfunction Adjust antihypertensives as needed Depression/anxiety Continue bupropion, buspirone, fluoxetine, trazodone, lorazepam Hypertension Losartan discontinued Started on lisinopril 10 mg daily Continue at reduced dose propranolol at 20mg daily Monitor blood pressure Dyslipidemia Lipid panel: Chol 120 LDL 53 HDL 42 Tri 124 on 09/06/2024 per records Continue atorvastatin DM II Diet controlled COPD Controlled Albuterol PRN GERD Continue pantoprazole and tums PRN Migraine Controlled Rizatriptan PRN Resume propranolol at lower dose as patient had transient bradycardia DVT Px: SCDs and TEDs Encouraged to ambulate Code Status: FULL CODE Disposition: 22 Admission and Anticipated Discharge Date Admission Date: September 30, 2024 Subjective Patient is seen and examined at bedside. No new complaints today Prefers to be discharged home today Refuses rehab placement Denies any chest pain, dyspnea, nausea, vomiting, abdominal pain Was able to ambulate in hallway with no issues. Review of Systems Review of Systems: All systems reviewed & are unremarkable except as noted in Subjective Physical Exam Physical Exam: Physical Exam: Vitals signs as noted above General Appearance:Moderately built and nourished, no apparent distress Head: normocephalic, Atraumatic Eyes: normal inspection, EOMI Neck: supple, Trachea midline Respiratory/Chest: Normal breath sounds, CTA, No accessory muscle use Cardiovascular: S1, S2, No murmur, bradycardia Abdomen/GI:Soft, Non tender, Bowel sounds present Back:Surgical site in dressing Extremities/Musculoskeletal:normal inspection, no edema Neurologic/Psych:AAOX3, RUE 4/5, RLE 4/5 Skin: normal color, warm Results & Data Results & Data Vital Signs (Past 12 Hours) Vital Signs Temp Pulse Pulse Resp BP Pulse Ox O2 Del Method 10/17/24 11:04 36.6 C 69 18 100/63 93 Room Air 10/17/24 08:45 Room Air 10/17/24 07:19 36.7 C 77 18 110/68 93 Room Air 10/17/24 07:08 83 10/17/24 06:32 36.8 C 84 16 148/74 H 95 Room Air 10/17/24 03:44 36.6 C 80 16 116/60 95 Room Air Laboratory Results [facility] 10/17/24 07:10 Sodium 138 Potassium 3.9 Chloride 102 Carbon Dioxide 30 BUN 17 Creatinine 0.59 L Glucose 95 Calcium 8.7
[2024-10-18] MEDS: PROPRANOLOL HCL 20 MG TAB PO SCH (09:50)
--- NOTE | 2024-10-18 14:25 | Hospitalist Progress Note ---
Date of Service October 18, 2024 Assessment & Plan (1) Myelopathy concurrent with and due to spinal stenosis of thoracic region: (2) Stroke-like symptoms: (3) Confusion: (4) Dizziness: (5) Depression: (6) HTN (hypertension): (7) Dyslipidemia: (8) Diabetes mellitus, type II: (9) COPD (chronic obstructive pulmonary disease): (10) Migraine: Plan 74 year old male with PMH significant for DMII, HTN, HLD, COPD, migraine, depression, and history of L pontine stroke who presented to the ED on 09/30 with confusion, right sided weakness, and slurred speech who was admitted for a stroke workup and was found to have severe spinal stenosis and is s/p surgery with Dr Ac on 10/11. 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 Ac on 10/11/2024 Appreciate orthopedic spine help Pain is controlled Drain removed on 10/15/2024 Bowel regimen to prevent constipation Continue PT OT: Improving with activity Fall precautions Needs follow-up with orthopedic spine on discharge Likely to discharge to SNF tomorrow History of L pontine CVA Patient presented with weakness in RUE and RLE - unknown if this was related to previous L pontine stroke or new weakness MRI w/wo contrast negative for acute stroke Neck CTA: Moderate plaque with a maximum 60% stenosis in the proximal right internal carotid artery. Mild plaque with a maximum 30% stenosis in the proximal left internal carotid artery. Intact vertebral artery flow bilaterally. Neurology recommends outpatient ambulatory referral to neurosurgery endovascular team for further monitoring Continue Plavix, atorvastatin Mild Dementia Metabolic Encephalopathy 2/2 Polypharmacy, resolving Could be due to stroke, post-fall concussion, declining neurocognitive function, polypharmacy Patient seen by Neurology Dr. Holm outpatient with workup ongoing (EEG negative for epilepsy per records) and follow up appointment scheduled for 01/23/2025 notes family hx of parkinsons for the pt UA, TSH, B12, lyme unremarkable Likely mild dementia Continue delirium precautions - frequent reorientation, avoid sedating medications as able Continue folic acid, thiamine, vitamin B supplementation Dizziness Could be due to stroke, post-fall concussion, polypharmacy Pt currently being worked up for dementia, family hx of parkinsons, question of associated autonomic dysfunction Adjust antihypertensives as needed Depression/anxiety Continue bupropion, buspirone, fluoxetine, trazodone, lorazepam Hypertension Losartan discontinued Started on lisinopril 10 mg daily Continue at reduced dose propranolol at 20mg daily Monitor blood pressure Dyslipidemia Lipid panel: Chol 120 LDL 53 HDL 42 Tri 124 on 09/06/2024 per records Continue atorvastatin DM II Diet controlled COPD Controlled Albuterol PRN GERD Continue pantoprazole and tums PRN Migraine Controlled Rizatriptan PRN Resume propranolol at lower dose as patient had transient bradycardia DVT Px: SCDs and TEDs Encouraged to ambulate Code Status: FULL CODE Disposition: SNF likely tomorrow Admission and Anticipated Discharge Date Admission Date: September 30, 2024 Subjective Patient is seen and examined at bedside. Doing well with PT Offers no new complaints Denies any chest pain, dyspnea, nausea, vomiting, abdominal pain Waiting for rehab placement Review of Systems Review of Systems: All systems reviewed & are unremarkable except as noted in Subjective Physical Exam Physical Exam: Physical Exam: Vitals signs as noted above General Appearance:Moderately built and nourished, no apparent distress Head: normocephalic, Atraumatic Eyes: normal inspection, EOMI Neck: supple, Trachea midline Respiratory/Chest: Normal breath sounds, CTA, No accessory muscle use Cardiovascular: S1, S2, No murmur, bradycardia Abdomen/GI:Soft, Non tender, Bowel sounds present Back:Surgical site in dressing Extremities/Musculoskeletal:normal inspection, no edema Neurologic/Psych:AAOX3, RUE 4/5, RLE 4/5 Skin: normal color, warm Results & Data Results & Data Vital Signs (Past 12 Hours) Vital Signs Temp Pulse Pulse Resp BP Pulse Ox O2 Del Method 10/18/24 14:17 Room Air 10/18/24 11:09 36.9 C 85 17 117/74 94 Room Air 10/18/24 07:30 36.7 C 97 H 18 144/76 H 97 Room Air 10/18/24 05:44 85 10/18/24 02:33 36.7 C 82 14 145/75 H 94 Room Air
[2024-10-19 02:34] VITALS: TEMP 98.2
[2024-10-19 06:17] LABS: Hematocrit (blood only) 39.6 % (42.0-52.0); Hemoglobin 13.4 g/dl (14.0-18.0); Mean Corpuscular Hemoglobin 30.5 pg (25.0-34.0); Mean Corpuscular Hgb Conc 33.8 g/dL (32.0-36.0); Platelet Count 274 K/uL (130-400); RDW Coefficient of Variation 13.2 % (11.5-14.5); RDW Standard Deviation 43.6 fL (36.4-46.3); White Blood Count 10.09 K/ul (4.8-10.8)
[2024-10-19 06:35] LABS: BUN Creatinine Ratio 24.6 (10-20); Calcium 8.9 mg/dl (8.6-10.3); Creatinine Clr Calc Pharmacy 97.9 ml/min; Potassium 3.8 mmol/L (3.5-5.1)
[2024-10-19 07:48] VITALS: BP 138/60; PULSE 82; O2SAT 97
[2024-10-19 07:52] VITALS: RESP 18
--- NOTE | 2024-10-19 09:41 | Discharge Summary ---
Date of Service October 19, 2024 Admission HPI Per Admitting Provider 74 year old male with PMH significant for DMII, HTN, HLD, COPD, migraine, depression, and history of L pontine stroke who presented to the ED today with confusion, right sided weakness, and slurred speech. Patient is a poor historian and most of history was obtained from patient's . She reports that he had a fall on Thursday while doing yard work and must have hit his head because she noticed dried blood on his face when he came inside. She reports he has been dizzy and lightheaded in the morning since Thursday. She also reports that he has been extremely weak and having slurred speech for the last 10 days (prior to the fall). She reports that he has not been able to complete physical therapy sessions due to weakness and states that his speech is "sick tongue" and sounds like he has "a rock in his mouth". She also reports that he has been increasingly confused including orientation, word finding, and tasks but notes this has been going on for a few weeks. He was seen as a new patient by Neurology on 09/13 for memory problems and has an outpatient workup pending including an EEG that was negative for epilepsy and MRI scheduled for 10/13. Patient went to his PCP yesterday for the above ongoing symptoms who recommended immediate ER evaluation for imaging to rule out bleeding or stroke. Patient denies headaches, blurry vision, diplopia, fevers, chills, cough, cold symptoms, chest pain, SOB, abdominal pain, N/V/D, numbness/tingling. He has been taking all of his medications as prescribed. His notes that he takes multiple psych medications because his behavior has been "out of control" in the past and he needs all of them to stay in check. He was recently started on olanzapine on 09/16 by his PCP for skin picking disorder. Admission Exam Per Admitting Provider General/Psych: WD/WN, sitting up in bed, NAD, conversing easily, euthymic affect Head: normocephalic, atraumatic Eyes: normal inspection, PERRL, conjunctivae pink, anicteric sclerae ENT: external ear and nose normal, oropharynx normal Neck: normal visual inspection, trachea midline, no thyromegaly Respiratory: normal respiratory effort, lungs clear to auscultation, no wheeze/rales/rhonchi, no accessory muscle use Cardiovascular: regular rate and rhythm, no murmur/rub/gallop, no JVD Extremities: no cyanosis or clubbing, normal peripheral pulses, no BLE edema Abdomen/GI: normal bowel sounds, soft, nontender, no hepatosplenomegaly Neurologic/MSK: A+Ox3, CN's II-XI intact bilaterally, motor strength 4/5, moves all extremities, 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, decreased strength in right leg Skin: no rashes, normal color, warm and dry Principal Diagnosis Thoracic spinal stenosis with myelopathy Strokelike symptoms Carotid artery disease Discharge Exam General Appearance:Moderately built and nourished, no apparent distress Head: normocephalic, Atraumatic Eyes: normal inspection, EOMI Neck: supple Respiratory/Chest: Normal breath sounds, CTA, No accessory muscle use Cardiovascular: S1, S2, No murmur Abdomen/GI:Soft, Non tender, Bowel sounds present Back:Surgical site in dressing Extremities/Musculoskeletal:normal inspection, no edema Neurologic/Psych:AAOX3, RUE 4/5, RLE 4/5 Skin: normal color, warm Discharge Data Allergies Allergy/AdvReac Type Severity Reaction Status Date / Time latex Allergy Intermediate Rash Verified 09/30/24 15:44 tetracycline Allergy Intermediate RASH Verified 09/30/24 15:44 strawberry Allergy Verified 10/12/24 12:20 Consultations 09/30/24 15:19 ED Decision to Admit Stat 09/30/24 20:10 Consult Neurology Routine 10/02/24 15:04 Consult Orthopedic Spine Surgery Routine Procedures Performed Operation Date: 10/11/24 07:45 Actual Procedures p Exploration of Fusion L2-L4, Revision Decompression with Bilateral Medial Facetectomies T10-T11 T11-T12, Posterior Spinal Fusion T10-L2.(Not Applicable) - Robb Ac DO s Removal of Posterior Instrumentation L2-L4(Not Applicable) - Robb Ac DO Ordered Studies 09/30/24 12:30 CT head/brain wo con Stat 09/30/24 16:56 MRI Brain [MR brain wo/w con] Stat 09/30/24 17:09 Carotid duplex [US carotid doppler BI] Urgent 10/01/24 14:39 CTA head w con [CT angio head w con] Urgent 10/01/24 14:40 CTA neck with con [CT angio neck with con] Urgent 10/01/24 14:42 CT femur RT wo con Urgent 10/01/24 15:42 MRI Lumbar Spine [MR lumbar spine wo/w con] Routine 10/03/24 07:45 MRI Thoracic [MR thoracic spine wo con] Urgent 10/11/24 07:45 FL lumbar spine 2-3V Routine Hospital Course (1) Myelopathy concurrent with and due to spinal stenosis of thoracic region: (2) Stroke-like symptoms: (3) Confusion: (4) Dizziness: (5) Depression: (6) HTN (hypertension): (7) Dyslipidemia: (8) Diabetes mellitus, type II: (9) COPD (chronic obstructive pulmonary disease): (10) Migraine: Plan 74 year old male with PMH significant for DMII, HTN, HLD, COPD, migraine, depression, and history of L pontine stroke who presented to the ED on 09/30 with confusion, right sided weakness, and slurred speech who was admitted for a stroke workup and was found to have severe spinal stenosis and is s/p surgery with Dr Ac on 10/11. 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 Ac on 10/11/2024 Appreciate orthopedic spine help Pain is controlled Drain removed on 10/15/2024 Bowel regimen to prevent constipation Continue PT OT: Improving with activity Fall precautions Needs follow-up with orthopedic spine surgeon after discharge History of L pontine CVA Patient presented with weakness in RUE and RLE - unknown if this was related to previous L pontine stroke or new weakness MRI w/wo contrast negative for acute stroke Neck CTA: Moderate plaque with a maximum 60% stenosis in the proximal right internal carotid artery. Mild plaque with a maximum 30% stenosis in the proximal left internal carotid artery. Intact vertebral artery flow bilaterally. Neurology recommends outpatient ambulatory referral to neurosurgery endovascular team for further monitoring Continue Plavix, atorvastatin Mild Dementia Metabolic Encephalopathy 2/2 Polypharmacy, resolving Could be due to stroke, post-fall concussion, declining neurocognitive function, polypharmacy Patient seen by Neurology Dr. Holm outpatient with workup ongoing (EEG negative for epilepsy per records) and follow up appointment scheduled for 01/23/2025 notes family hx of parkinsons for the pt UA, TSH, B12, lyme unremarkable Likely mild dementia Continue delirium precautions - frequent reorientation, avoid sedating medications as able Continue folic acid, thiamine, vitamin B supplementation Dizziness Could be due to stroke, post-fall concussion, polypharmacy Pt currently being worked up for dementia, family hx of parkinsons, question of associated autonomic dysfunction Adjust antihypertensives as needed Depression/anxiety Continue bupropion, buspirone, fluoxetine, trazodone, lorazepam Hypertension Losartan discontinued Started on lisinopril 10 mg daily Continue at reduced dose propranolol at 20mg daily Monitor blood pressure Dyslipidemia Lipid panel: Chol 120 LDL 53 HDL 42 Tri 124 on 09/06/2024 per records Continue atorvastatin DM II Diet controlled COPD Controlled Albuterol PRN GERD Continue pantoprazole and tums PRN Migraine Controlled Rizatriptan PRN Resumed propranolol at lower dose as patient had transient bradycardia DVT Px: SCDs and TEDs Encouraged to ambulate Total Time Total Time Spent Total Time Spent (In Minutes): 40 Discharge Plan Discharge Items Patient Disposition: Transfer Inpatient Rehab Fac Reason For Visit: CONFUSION Discharge Diagnosis: Thoracic spinal stenosis with myelopathy Strokelike symptoms Carotid artery disease Condition on Discharge: Fair Activity: As commented below Exercise/Sports: Gradually increase as tolerated Non-emergency contact: Primary Care Provider and Surgeon Call non-emergency contact if: you have any medication questions, your symptoms worsen, your pain is concerning for you and you have a fever Follow-up/Referrals: Zaid Arnold DO [Primary Care Provider] - (Date & Time 10/25/2024 10:20 AM Provider: Zaid Arnold DO [facility] ) Diet: Carb Consistent or DM2 Addtl Attending Provider Instructions: ACTIVITY RECOMMENDATIONS: SELF CARE INSTRUCTIONS AFTER THORACIC/LUMBAR FUSIONS 1. You may walk to your tolerance. It is good exercise for your legs and back. Expect some back and intermittent leg aches and pains. 2. You may perform "counter-top" level activities (make a sandwich, debby with a project, etc.). 3. No bending or lifting of more than 10 pounds or back twisting of any nature (roll like a log when turning in bed). 4. You may ride in a car for 20-30 minutes at a time. No driving until after your first visit with your doctor. 5. Frequent changes of position and restricting sitting to 30 minutes at a time will help limit the amount of back spasms and stiffness you may experience. 6. You may discontinue the use of ambulatory aids (cane, crutches, etc.) once your strength and confidence allow. 7. You may director of casino the shower and let water strike your incision when you arrive home at least once daily. Do not take a tub bath, sit in a hot tub or go into a swimming pool until after your first recheck in the office. 8. You may resume previous diet. SPECIAL CARE INSTRUCTIONS: VERY IMPORTANT TO READ AND REVIEW A. Your surgical incision has been closed with a cosmetic suture under the skin that will dissolve in about 6 weeks. In 14 days, you can use a pair of clean scissors and cut the suture that is left outside of the skin at the ends of your incision. 1. The small skin tapes can be removed 7 days after surgery if they have not fallen off by that point. 2. You may keep the wound open to air as much as possible to promote healing after post-op day number 5 unless told otherwise by your doctor. 3. If you think the wound looks like it is becoming infected (redness or worsening drainage) and/or you are experiencing fever, chill or worsening back pain and muscle spasms, contact the office so that we may evaluate you as soon as possible. B. Complications are uncommon, but please contact us if you have any signs or symptoms of: 1. wound infection (fever higher than 102.5 degrees F, redness, separation of wound, drainage, or increasing pain from the incision) 2. blood clots in legs (pain, swelling, redness and warmth in legs) 3. urinary tract infection (fever higher than 102.5 degrees F, burning upon urination or increased frequency of urination) 4. nerve problems (inability to walk on your toes or heels, numbness, loss of bowel or bladder control) 5. any other symptoms that concern you C. Please call the office at if you have any concerns or questions about your operation or recovery. D. No smoking! Smoking drastically decreases the chance of a solid fusion. E. Do not take any anti-inflammatory medications (Indocin, Advil, Motrin, Aspirin, Naprosyn, etc.) as these may inhibit the chance of a solid fusion. Tylenol is okay to take for pain. MANAGING PAIN AFTER SPINAL SURGERY 1. Narcotic medication is intended for short-term use and will be provided for surgical pain. Surgical pain usually lasts for a period of 4-6 weeks. Narcotic medication includes Percocet, Vicodin, Darvocet, Tylenol #3 or Lortab. 2. Longer-term pain is more appropriately treated with non-narcotic medication such as Tylenol ES. 3. Muscle spasm is not appropriately treated with narcotics. Muscle relaxers such as Soma, Flexeril or Skelaxin can be used along with Tylenol ES. 4. Remember that we all live with some "aches and pains". This is not unusual or uncommon after an injury or as we get older. a. Back pain is expected and may include muscle spasms for 4 to 6 weeks after surgery. The pain should gradually improve. If the pain worsens for no apparent reason, please contact the office. b. Intermittent leg pain may also be experienced and should not be concerned about unless it worsens for no apparent reason. If so, please contact the office. 5. We will provide appropriate medication within the normal guidelines of their prescribed use. We will also be very cautious and aware of potential abuse and extended duration of patients' medication needs. a. Pain medications are for your comfort and to assist with sleep and rest so that the tissue can heal. They are not provided in order to return to normal activity and should not be used through the day. To do so or worsening pain at night can result from ongoing tissue damage and development of tolerance to the prescribed medicine. 6. Please allow 2-3 days to process refills. Prescriptions will not be mailed but must be picked up at the office. FOLLOW UP VISIT: Keep your scheduled follow-up appointment. Any questions, please call the office at . Addtl Steam Powerplant Supervisor Provider Instructions: Follow-up with your primary care physician on 10/25/2024 10:20 AM Follow-up with your orthopedic surgeon Dr. Ac as recommended Follow-up with your neurologist/ vascular surgeon as outpatient for evaluation and treatment of carotid vascular disease --Monitor your blood pressure and heart rate regularly as advised. Discuss with your primary care physician for further adjustment of medications as needed Seek immediate medical attention if your symptoms reoccur or worsen Please review medication list provided on discharge for any medication changes as instructed. Please call if you have any questions or problems. You can reach a Ian hospitalist on duty at [facility] 24 hours a day by calling [phone] Pending Studies at Discharge: No Stand-Alone Forms: My [facility] Skilled Items Patient informed of condition?: Yes DNR: No Discharge Level of Care: Acute rehab Communicable Disease: No Discharge Prognosis: Improving Lines: None Urinary Catheter: No Medications and DC Order Prescriptions: New lisinopril 10 mg Tablet 10 mg PO QAM Qty: 30 0RF atorvastatin 40 mg Tablet 40 mg PO DAILY Qty: 30 0RF clopidogrel 75 mg Tablet 75 mg PO QAM Qty: 30 0RF propranolol 20 mg Tablet 20 mg PO QAM Qty: 30 0RF acetaminophen [Tylenol Extra Strength] 500 mg Tablet 1,000 mg PO Q8H PRN (Reason: pain) Qty: 30 0RF bupropion HCl 150 mg Tablet Extended Release 24 Hr 150 mg PO DAILY Qty: 30 0RF fluoxetine 20 mg Capsule 40 mg PO DAILY Qty: 30 0RF thiamine HCl (vitamin B1) 100 mg Tablet 100 mg PO QAM Qty: 30 0RF vitamin B complex [Vitamins B Complex] Capsule 1 cap PO QAM Qty: 30 0RF folic acid 1 mg Tablet 1 mg PO QAM Qty: 30 0RF pantoprazole 40 mg Tablet,Delayed Release (Dr/Ec) 40 mg PO BID Qty: 60 0RF famotidine 20 mg Tablet 20 mg PO QAM Qty: 30 0RF sennosides-docusate sodium [Senokot-S] 8.6-50 mg Tablet 2 tab PO HS Qty: 30 0RF trazodone 50 mg Tablet 50 mg PO HS Qty: 30 0RF oxycodone 5 mg Tablet 5 mg PO TID PRN (Reason: pain) Qty: 10 0RF Continued fluoxetine 40 mg capsule 40 mg PO DAILY Rx Instructions: TOTAL DOSE 60 MG--TAKES WITH 20 MG CAP. atorvastatin 40 mg tablet 40 mg PO DAILY clopidogrel 75 mg tablet 75 mg PO QAM rizatriptan 10 mg Tablet 10 mg PO UD PRN (Reason: Migraine Headache) calcium carbonate 500 mg calcium (1,250 mg) Tablet,Chewable 500 mg PO DIRECTED PRN (Reason: HEARTBURN/INDIGESTION) bupropion HCl 150 mg tablet extended release 24 hr 150 mg PO DAILY Centrum Silver 0.4 mg-300 mcg- 250 mcg Tablet 1 tab PO DAILY pantoprazole 40 mg Tablet,Delayed Release (Dr/Ec) 40 mg PO BID Qty: 60 0RF trazodone 50 mg Tablet 50 mg PO HS Boost Liquid 1 ea PO BID diclofenac sodium 1 % Gel 2 g TOPICAL BID Rx Instructions: APPLY TO RIGHT KNEE albuterol sulfate 90 mcg/actuation HFA aerosol inhaler 2 puff INHALATION Q4 PRN (Reason: Wheezing) Qty: 6.7 0RF Discontinued tramadol 50 mg tablet 50 mg PO Q6 PRN (Reason: Pain, Severe) lorazepam 1 mg tablet 1 mg PO HS PRN (Reason: Anxiety/insomnia) fluoxetine 20 mg capsule 20 mg PO DAILY Rx Instructions: TOTAL DOSE 60 MG--TAKES WITH 40 MG CAP. buspirone 5 mg tablet 5 mg PO QDL Rx Instructions: at noon olanzapine 2.5 mg tablet 2.5 mg PO DAILY losartan 25 mg tablet 25 mg PO DAILY acetaminophen [Tylenol 8 Hour] 650 mg Tablet Extended Release 1,300 mg PO BID propranolol 80 mg capsule,extended release 24hr 80 mg PO DAILY Discharge Orders: Discharge Order (Routine); Ordered 10/19/24 Ordered By: Renato Dill Admission Data Admit Date/Time: 09/30/24 17:08 Attending Provider: Renato Dill Admit Provider: Joshua Perez Primary Care Provider: Zaid Arnold Other Providers: [facility]; Miller Messer [facility] [place]; Ar Sánchez; Robb Ac; Joshua Perez
== END 2024-10-19 11:29 | DRG 447 ==
LOC: ED 12:09 → 2N 17:08 → SUATTDRO 17:08 → 2N 19:43